=== PATIENT | female | born 1945 | race Caucasian/White ===

== ENCOUNTER → 2017-10-03 09:56 | Outpatient (CLI) | payer MEDICARE, SELFPAY ==
--- NOTE | 2017-10-03 10:01 | RDU_ITS ---
Reason For Study: HTN Right Renal Artery Left Renal Artery Right renal artery ostium 284/79.0 Left renal artery ostium 169/35.4 RSV/EDV. PSV/EDV. Right renal artery proximal Left renal artery proximal PSV/EDV 306/42.8 PSV/EDV. 163/20.8 . Right renal artery mid 156/34.2 Left renal artery mid 240/48.9 PSV/EDV. PSV/EDV . Right renal artery distal 165/34.2 Left renal artery distal 95.8/31.0 PSV/EDV. PSV/EDV. Right RAR 3.6. Left RAR 2.8. Right Renal Parenchyma Left renal artery appears tortuous. Upper Pole Medula 37.3/12.8 Left Renal Parenchyma PSV/EDV. Left upper pole medulla 32.8/8.66 Right upper pole medulla EDR .34 . PSV/EDV . Right upper pole medulla R.I. .66 . Left upper pole medulla EDR .26 . Upper Vivek Cortx 27.5/7.94 PSV/EDV. Left upper pole medulla R.I. .74 . Right upper pole cortex EDR .29 . UP Cortex 25.5/8.66 PSV/EDV. Right upper pole cortex R.I. .71 . Left upper pole cortex EDR .34 . Right lower Pole medulla 33.0/11.0 Left upper pole cortex R.I. .66 . PSV/EDV . Left lower Pole medulla 24.6/8.21 Right lower pole medulla EDR .33 . PSV/EDV . Right lower pole medulla R.I. .67 . Left lower pole medulla EDR .33 . Lower Pole Cortex 29.3/10.4 Left lower pole medulla R.I. .67 . PSV/EDV. Lower Pole Cortx 26.0/8.66 PSV/EDV. Right lower pole cortex EDR .35 . Left lower pole cortex EDR .33 . Right lower pole cortex R.I. .65 . Left lower pole cortex R.I. .67 . Right Renal Hilar Left Renal Hilar Right hilar acceleration time 88 Left hilar acceleration time 59 m/sec. m/sec. Right Hilar avg 84.3/19.6 PSV/EDV. LT Hilar avg 52.4/15.0 PSV/EDV . Right Renal Dimensions Left Renal Dimensions Right kidney size 10.4 cm . Left kidney size 12.2 cm . Right cortical dimension 1.7 cm . Left cortical dimension 1.29 cm . Hypoechoic area on the lower pole measuring 4.76 x 5.37 cm. Area is nonvascular. Aorta Proximal abdominal aorta 1.45 x 1.5 cm . Proximal abdominal aorta peak systolic velocity is 85.7 cm/sec . Distal abdominal aorta 1.04 x 1.04 cm . Distal abdominal aorta peak systolic velocity is 71.1 cm/sec . Normal renal veins bilat. Interpretation Summary Dimensions of the intra-abdominal aorta appear normal, without evidence of aneurysmal dilatation. Elevated velocities are noted in the right ostial and proximal renal artery, and the left mid-renal artery. Acceleration times are normal bilaterally. The right renal-aortic ratio is elevated. The left renal-aortic ratio is normal. There appears to be evidence of hemodynamically-significant stenosis in the right renal artery. There appears to be mild stenosis in the left renal artery, which is not suspected to be hemodynamically significant. Renovascular resistance appears to be normal. The right cortical dimension is elevated. The left cortical dimension is normal. Kidneys are normal in size, but the left kidney is more than one centimeter larger than the right kidney. A large, non-vascular, hypoechoic structure is noted in the lower pole of the left kidney, measuring 4.76 cm x 5.37 cm. This may represent a renal cyst. Clinical correlation is advised. Ordering Physician: Carol Singer Performed By: Enrique Abernathy RVDino
== END ==
PROVIDERS: Family Provider Internal Medicine; PCP Internal Medicine; Visit Provider Internal Medicine
DX: I10 Essential (primary) hypertension (principal)
CPT/HCPCS: 93975

== ENCOUNTER → 2018-01-01 13:08 | Outpatient (CLI) | payer MEDICARE, SELFPAY ==
--- NOTE | 2018-01-01 13:12 | CT_ITS ---
STUDY: CT ANGIOGRAM ABDOMEN AND PELVIS WITH CONTRAST REASON FOR EXAM: Female, 72 years old. Follow up renal artery stenosis RADIATION DOSAGE (If Supplied By Facility): CTDIvol = ( 24.87 ) mGy, DLP = ( 964.70 ) mGycm. Individualized dose optimization techniques were used for this CT.? TECHNIQUE: Multiple axial images of the abdomen and pelvis were obtained from the base of the lungs to the proximal femurs after the administration of 100 mL of Isovue-370. Sagittal coronal reconstructed images are performed as well as 3-D reconstructed imaging. COMPARISON: March 19, 2013 CT angiogram abdomen FINDINGS: The aorta at the takeoff of the celiac measures 2.0 x 2.0 cm. There is dense calcification uptake about the celiac axis. There is severe narrowing of the takeoff with a small caliber but enhancing appearance of the associated vessels. Allowing for the timing of the procedure the stenosis appears worse. There is calcification the takeoff of the superior mesenteric artery and throughout the splenic mesenteric artery without occlusion. There is dense calcification of the takeoff of the right renal artery with a enhancing appearance of the right renal artery. There is dense calcification of the left renal artery at the takeoff and in the proximal left renal artery over a segment of 1.2 cm. This is similar to the prior study. There is partial calcification of the distal aorta. There is mild to moderate calcification of the takeoff of the right common iliac. There is partial calcification of the takeoff of the right external iliac artery. There is associated calcification of the proximal common femoral artery. There is mild to moderate diffuse narrowing of the right internal iliac artery. There is calcification of the left iliac artery without stenosis. There is mild to moderate narrowing of the left internal iliac artery. The left external iliac artery appears relatively patent. There is nonobstructed calcification of the left side common femoral artery. There is a hiatal hernia larger than prior study measuring 5.1 x 6.5 cm when on prior study it measured 2.3 x 2.4 cm. The small bowel appears grossly normal. There is moderate stool in the colon. There are few visualized diverticula present without evidence of diverticulitis. The visualized arterial phase liver appears fairly homogeneous. The gallbladder appears normal. The spleen is mildly lobulated similar to prior study but relatively smaller in size now measuring 6.3 cm when it measured 8.2 cm on prior study. The pancreas appears grossly normal. The adrenal glands are unremarkable. There is mild right-sided extrarenal pelvis in the right kidney. The right kidney enhances appropriately. There is a suggestion of mild left renal cortical thinning. There is a left renal cyst measuring 5.0 x 4.7 cm slightly enlarged when compared to prior study when it measured 4.2 x 3.6 cm. There is minimal left pelviectasis. The graft there is no significant periaortic lymphadenopathy. There are few nonspecific fatty filled lymph nodes. Bladder is partially distended. A pessary is in place. The uterus is not visualized. There is slight anterolisthesis of L4-L5 there is a worse broad disc protrusion with moderate to severe neural foramina narrowing and moderate to severe central stenosis. There is a broad disc bulge at L4-L5 with facet arthropathy. There is degenerative change of the SI joints. CT/CT ANGIO ABD&PEL W/O&W/DYE IMPRESSION: Relatively similar-appearing moderate atherosclerosis of the bilateral renal arteries. 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 Recommend vascular consult. 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 Status post hysterectomy. Moderate constipation. Advanced degenerative change thoracolumbar spine including a broad disc protrusion L4-L5 with severe neural foramina narrowing of central stenosis. Enlarging hiatal hernia. Enlarging left renal cyst with otherwise benign features. Electronically Signed: Melodie Jacinto MD at 21:14 EDT Tel , Service support ,
[2018-01-01 20:26] LABS: CREATININE FINGERSTICK 0.7 mg/dL (0.55-1.02); EGFR FINGERSTICK > 60.0000 mL/min (>60)
== END ==
PROVIDERS: Family Provider Internal Medicine; PCP Internal Medicine; Visit Provider Internal Medicine Nephrology
DX: I70.1 Atherosclerosis of renal artery (principal)
CPT/HCPCS: 74174; Q9967

== ENCOUNTER → 2018-01-09 10:11 | Outpatient (CLI) | payer MEDICARE, SELFPAY ==
[2018-01-09 10:50] LABS: Absolute Lymphocyte Count 1.66 X10^3/ul (0.83-4.51); Absolute Neutrophil Count 2.1 X10^3/uL (2.0-7.7); Basophil# 0.02 X10^3/uL; Basophil% 0.5 % (0-1); Eosinophils% 2.3 % (0-5); Hematocrit 33.1 % (37-47); Lymphocyte # 1.66 X10^3/ul (4.0); Lymphocyte % 37.4 % (19-41); Mean Corp Hgb Conc 33.2 g/gl (32-36); Mean Corpuscular Hgb 29.8 pg (27.0-32.0); Mean Corpuscular Volume 89.7 fL (81-99); Mean Platelet Vol. 9.9 fl (6.2-12.0); Monocyte# 0.52 X10^3/uL; Monocyte% 11.7 % (0-10); Neutrophil # 2.13 X10^3/uL (2.7-7.7); Neutrophil % 47.9 % (47-70); POSITIVE COUNT NO; POSITIVE DIFFERENTIAL NO; POSITIVE MORPHOLOGY NO; Platelet Count 304 K/mm3 (150-450); RBC Distribution Width CV 12.7 % (11.6-14.6); Red Blood Count 3.69 M/mm3 (4.2-5.4); White Blood Count 4.4 K/mm3 (4.4-11.0)
[2018-01-09 10:58] LABS: Protein, Urine (Random) 20.4 mg/dL (<11.9); Protein:Creat Ratio 174 mg/g CRE (0-200)
[2018-01-09 11:02] LABS: Albumin, Serum 3.4 g/dL (3.2-5.0); BUN 20 mg/dL (7-18); BUN/Creat Ratio 22.5 RATIO (10-20); Calcium,Total 8.8 mg/dL (8.5-10.1); Chloride 98 mmol/L (98-107); Creatinine, Serum 0.89 mg/dL (0.55-1.02); EST Glomerular Filtration Rate 66 mL/min (>60); Est Glom Filt Rate - Afr Amer 80 mL/min (>60); Glucose 74 mg/dL (74-106); Phosphorus 3.6 mg/dL (2.5-4.9); Potassium 4.2 mmol/L (3.5-5.1); Sodium Level 132 mmol/L (136-145)
[2018-01-10 08:18] LABS: PTHIN 34.5 pg/mL (18.4-80.1)
[2018-01-10 08:19] LABS: Vitamin D,25 Hydroxy 51.3 ng/mL (29.95-100.01)
== END ==
PROVIDERS: Family Provider Internal Medicine; PCP Internal Medicine; Visit Provider Internal Medicine Nephrology
DX: N18.2 Chronic kidney disease, stage 2 (mild) (principal); E55.9 Vitamin D deficiency, unspecified
CPT/HCPCS: 36415; 80069; 82306; 82570; 83970; 84156; 85025

== ENCOUNTER → 2018-04-10 09:37 | Outpatient (CLI) | payer MEDICARE, SELFPAY ==
[2018-04-10 11:08] LABS: Microalbumin,Random Urine 10.5 mg/L (NO RANGE EST.); Microalbumin:Creatinine Ratio 16.2 mg/g CRE (<30 mg/g CRE)
[2018-04-10 11:22] LABS: Anion Gap 8 (5-15); BUN 18 mg/dL (7-18); BUN/Creat Ratio 21.4 RATIO (10-20); Calcium,Total 8.8 mg/dL (8.5-10.1); Chloride 99 mmol/L (98-107); Creatinine, Serum 0.84 mg/dL (0.55-1.02); EST Glomerular Filtration Rate 70 mL/min (>60); Est Glom Filt Rate - Afr Amer 85 mL/min (>60); Glucose 76 mg/dL (74-106); Potassium 4.2 mmol/L (3.5-5.1); Sodium Level 132 mmol/L (136-145)
== END ==
PROVIDERS: Family Provider Internal Medicine; PCP Internal Medicine; Referring Provider Internal Medicine Nephrology; Visit Provider Internal Medicine Nephrology
DX: N18.2 Chronic kidney disease, stage 2 (mild) (principal)
CPT/HCPCS: 36415; 80048; 82043; 82570

== ENCOUNTER → 2018-06-08 14:59 | Outpatient (CLI) | payer MEDICARE, SELFPAY ==
--- NOTE | 2018-06-08 15:00 | BI_ITS ---
MAMMOGRAPHY - BILATERAL SCREENING REASON FOR EXAM: Female, 73 years old. Routine annual screening examination. PERTINENT HISTORY: Non-contributory. TECHNIQUE: Digital bilateral breast don (3D mammographic acquisition) in the CC and MLO projections. 2-D mediolateral oblique (MLO) and craniocaudad (CC) views of both breasts were obtained. CAD: Full Field Digital Mammography with Computer Added Detection was performed. COMPARISON: Comparison is made with prior study dated March 28, 2017 and April 26, 2016. FINDINGS: Breast Composition: The breasts are almost entirely fatty. There are no dominant masses or suspicious calcifications. Stable benign-appearing bilateral axillary lymph nodes. A stereo tactic tissue clip marker is seen in the upper lateral portion of the right breast adjacent to a small nodular density. No other significant abnormalities are identified. There has been no significant change since the prior study. BI/SCREENING MAMM (CAD), BILAT IMPRESSION: Stable bilateral screening mammogram. Yearly follow-up mammogram recommended. (A) ASSESSMENT CATEGORY: BIRADS Category 2: Benign. A letter regarding these results will be sent to the patient by the facility within 30 days. Approximately 10% of breast cancers are not detected by mammography. A normal mammogram should not delay biopsy of a clinically suspicious abnormality. [id number] Electronically Signed: Remy Gavin MD at 15:56 EST Tel [phone], Service support ,
== END ==
PROVIDERS: Family Provider Internal Medicine; PCP Internal Medicine; Referring Provider Nurse Practitioner Women's Health; Visit Provider Nurse Practitioner Women's Health
DX: Z12.31 Encounter for screening mammogram for malignant neoplasm of breast (principal)
CPT/HCPCS: 77063; 77067

== ENCOUNTER → 2018-11-23 11:10 | Outpatient (CLI) | payer MEDICARE, SELFPAY ==
[2018-10-23 14:21] VITALS: BMI 36.6
[2018-11-23 12:13] LABS: ALB/GLOB Ratio 0.9 RATIO (0.9-2.4); AST(SGOT) 19 U/L (15-37); Alanine Aminotransfer ALT/SGPT 20 U/L (13-56); Albumin, Serum 3.5 g/dL (3.2-5.0); Alkaline Phosphatase 90 U/L (45-117); Anion Gap 6 (5-15); BUN 14 mg/dL (7-18); BUN/Creat Ratio 15.9 RATIO (10-20); Calcium,Total 8.8 mg/dL (8.5-10.1); Chloride 97 mmol/L (98-107); Creatinine, Serum 0.88 mg/dL (0.55-1.02); EST Glomerular Filtration Rate 67 mL/min (>60); Est Glom Filt Rate - Afr Amer 80 mL/min (>60); Globulin 3.9 g/dL (2.2-4.2); Glucose 85 mg/dL (74-106); Potassium 4.9 mmol/L (3.5-5.1); Protein, Total 7.4 g/dL (6.4-8.2); Sodium Level 128 mmol/L (136-145)
[2018-11-23 13:11] LABS: Microalbumin,Random Urine 13.4 mg/L (NO RANGE EST.); Microalbumin:Creatinine Ratio 21.2 mg/g CRE (<30 mg/g CRE)
== END ==
PROVIDERS: Family Provider Internal Medicine; PCP Internal Medicine; Referring Provider Internal Medicine Nephrology; Visit Provider Internal Medicine Nephrology
DX: I10 Essential (primary) hypertension (principal)
CPT/HCPCS: 36415; 80053; 82043; 82570

== ENCOUNTER → 2019-02-13 11:12 | Outpatient (CLI) | payer MEDICARE, SELFPAY ==
[2019-01-15 14:12] VITALS: BMI 35.9
[2019-02-13 12:05] LABS: BUN 16 mg/dL (7-18); Glucose 100 mg/dL (74-106)
[2019-02-13 12:06] LABS: Anion Gap 6 (5-15); BUN/Creat Ratio 17.8 RATIO (10-20); Calcium,Total 9.1 mg/dL (8.5-10.1); Chloride 98 mmol/L (98-107); EST Glomerular Filtration Rate 65 mL/min (>60); Est Glom Filt Rate - Afr Amer 79 mL/min (>60); Potassium 4.4 mmol/L (3.5-5.1); Sodium Level 131 mmol/L (136-145)
== END ==
PROVIDERS: Family Provider Internal Medicine; PCP Internal Medicine; Referring Provider Internal Medicine Nephrology; Visit Provider Internal Medicine Nephrology
DX: E87.1 Hypo-osmolality and hyponatremia (principal)
CPT/HCPCS: 36415; 80048

== ENCOUNTER 2019-02-27 11:01 | Emergency (ER) | payer MEDICARE, SELFPAY ==
[2019-01-15 14:12] VITALS: BMI 35.9
[2019-02-27 11:02] VITALS: BP 159/93; PULSE 79; RESP 18; TEMP 36.1; O2SAT 98; BMI 35.5
--- NOTE | 2019-02-27 11:16 | EKG12_ITS ---
Test Reason : DIZZINESS Blood Pressure : / mmHG Vent. Rate : 068 BPM Atrial Rate : 068 BPM P-R Int : 172 ms QRS Dur : 084 ms QT Int : 418 ms P-R-T Axes : 021 -28 060 degrees QTc Int : 444 ms Normal sinus rhythm Normal ECG Confirmed by AUDRA SNYDER ([id number]), editor index JESSY HUSAIN ([id number]) on 03/05/2019 9:43:58 AM Referred By: DAXA Confirmed By:AUDRA SNYDER
--- NOTE | 2019-02-27 11:16 | RAD_ITS ---
STUDY: X-RAY CHEST REASON FOR EXAM: Female, 73 years old. Cough. Dizziness. TECHNIQUE: AP and lateral views of the chest. COMPARISON: Comparison is made with prior study dated June 21, 2017. FINDINGS: EKG electrodes are seen. The lungs are clear and expanded. There is no demonstrated pleural abnormality. Normal size heart. Stable calcified subcarinal lymph nodes. Normal visualized pulmonary arteries. There is atherosclerotic calcification of the aortic arch with tortuosity. There is demineralization of the osseous structures. Normal visualized ribs, clavicles, and shoulders. Hiatal hernia. RAD/Chest PA and Lateral IMPRESSION: Stable examination. No acute abnormality is seen. Electronically Signed: Remy Gavin, at 12:56 EDT , Service support ,
--- NOTE | 2019-02-27 11:16 | CT_ITS ---
STUDY: CT BRAIN WITHOUT CONTRAST REASON FOR EXAM: Female, 73 years old. Headaches and dizziness. History of hypertension. RADIATION DOSAGE (If Supplied By Facility): CTDIvol = ( 44.99 ) mGy, DLP = ( 745.49 ) mGycm TECHNIQUE: Transaxial CT imaging of the brain was performed without administration of intravenous contrast material. Individualized dose optimization techniques were used for this CT. COMPARISON: Comparison is made with prior study dated June 21, 2017. FINDINGS: Normal soft tissue structures. There is hyperostosis frontalis internus. There is mild cerebral atrophy with widening of the extra-axial spaces and ventricular dilatation. There are areas of decreased attenuation within the white matter tracts of the supratentorial brain, consistent with microvascular disease changes. Stable appearance of the small lacunar infarcts involving the insular cortex of both temporal lobes. Normal brainstem. Normal cerebellum. There is no intracranial hemorrhage. There are no findings of an acute ischemic infarction. Atherosclerotic calcification of the vertebral arteries and cavernous portions of the internal carotid arteries bilaterally. Normal visualized paranasal sinuses. CT/Brain/Head without Contrast IMPRESSION: Chronic involutional changes of the brain. Electronically Signed: Remy Gavin, at 12:37 EDT , Service support ,
--- NOTE | 2019-02-27 11:58 | ED.VIS.GEN ---
History of Present Illness Chief Complaint: Dizziness Narrative: 73-year-old female presents with elevated blood pressure, dizziness, and headache. She states that her blood pressure has been exceptionally elevated for the past week. She saw her it project coordinator and was started on clonidine 3 times a day. Since then her blood pressure has been more labile, being between 120 and 200 systolic. She has felt intermittently lightheaded but not ataxic. No visual changes or neck pain. No confusion. She is also concerned that she may be dehydrated because she has not been drinking very much fluid for the past few days. Current severity is mild. Past Medical History - Allergies and Home Meds Allergies/Adverse Reactions: Allergies Lzjdczf-Bdn-Cmy Reductase Inhibitor Adverse Reaction (Verified 02/27/19 11:03) leg muscle weakness Primary Care Physician: Carol Singer DO [Primary Care Provider] - Surgical History: no surgical history Smoking Status: Never smoker - Family History Maternal Family History: Family History (Last Reviewed 01/15/19 @ 14:12 by Leyla Gannon) Mother Heart disease Family History: Reports: Heart Disease Sibling Family History: Family History (Last Reviewed 01/15/19 @ 14:12 by Leyla Gannon) Mother Heart disease Family History: Reports: Heart Disease Review of Systems General: Denies: Chills, Fever, Sweats Eyes: Denies: Visual changes - bilaterally, Diplopia ENT: Denies: Rhinorrhea, Sore throat Cardiovascular: Reports: - - lightheaded. Denies: Chest pain, Palpitations Respiratory: Denies: Dyspnea, Cough, Dyspnea on exertion Gastrointestinal: Denies: Abdominal pain, Nausea, Vomiting, Diarrhea, Melena, Hematochezia Genitourinary: Denies: Dysuria, Hematuria, Frequency Musculoskeletal: Denies: Back pain, Extremity Pain Skin: Denies: Rash, Wounds Neurological: Denies: Headache, Weakness, Numbness Physical Exam Vital Signs/Narrative: Vital Signs Temp Pulse Resp BP Pulse Ox 02/27/19 11:02 97 F L 79 18 159/93 H 98 General: Well nourished, Well developed, No Acute Distress Head: Normocephalic, Atraumatic Eyes: Perrl, EOMI ENT: Moist mucous membranes, No rhinorrhea Neck: Supple, Nontender Cardiovascular: Regular rate, Regular rhythm, No murmurs Respiratory: No distress, CTA bilaterally, Chest nontender Abdomen: Soft, Nontender, Nondistended, Normal bowel sounds Back: Nontender, Normal Inspection Extremities: Nontender, No edema Skin: Normal color, No rash Neurological: Alert, Oriented x3, Cranial nerves II-XII grossly intact, Normal Strength, Normal Sensation Psychological: Normal affect, Normal Mood Diagnostic/Tx/Re-eval - Medical Decision Making EKG reveals sinus rhythm at a rate of 68. No acute ischemic changes. No QRS widening. No ST elevation. Unchanged from comparison EKG from June. Troponin is negative. CT brain is negative. Creatinine is normal. No evidence of endorgan damage from her labile blood pressure. She is still somewhat elevated here but I am hesitant to give her any additional medications since she states that she fluctuates so widely based on the time of day. She has no headache currently and looks quite well. She is not in any distress. Her urine does appear infected. I sent it for culture. I gave her a dose of Bactrim here. We discussed admitting her to the hospital versus close follow-up. She feels strongly about going home with close follow-up instead of staying in the hospital. Given her well appearance, I feel this is safe. She will follow-up closely with her doctor and return here if worse. ED Disposition - Plan for ED Patient: Disposition: Home or Assisted Living Diagnosis: UTI (urinary tract infection), Labile blood pressure Instructions: DIZZINESS, Unk Cause, High Blood Pressure (Hypertension), Understanding Urinary Tract Infections (UTIs) Prescriptions: Smz/Tmp Ds [Bactrim Ds] 1 tablet PO BID #14 tablet Referrals: Carol Singer DO [Primary Care Provider] - As soon as possible
[2019-02-27 12:27] LABS: Absolute Lymphocyte Count 1.39 X10^3/uL (0.83-4.51); Absolute Neutrophil Count 2.4 X10^3/uL (2.0-7.7); Basophil# 0.03 X10^3/uL; Basophil% 0.7 % (0-1); Eosinophil# 0.06 X10^3/uL; Eosinophils% 1.4 % (0-5); Hematocrit 35.3 % (37-47); Hemoglobin 11.8 g/dL (12.0-15.0); Lymphocyte # 1.39 X10^3/ul (4.0); Lymphocyte % 31.8 % (19-41); Mean Corp Hgb Conc 33.4 g/dL (32-36); Mean Corpuscular Hgb 30.3 pg (27.0-32.0); Mean Corpuscular Volume 90.7 fL (81-99); Mean Platelet Vol. 10.3 fl (6.2-12.0); Monocyte# 0.48 X10^3/uL; NRBC Flagged by Analyzer 0 % (0-5); Neutrophil % 54.9 % (47-70); Platelet Count 301 K/mm3 (150-450); RBC Distribution Width CV 12.4 % (11.6-14.6); RBC Distribution Width SD 40.9 fl (35.1-43.9); Red Blood Count 3.89 M/mm3 (4.2-5.4); White Blood Count 4.4 K/mm3 (4.4-11.0)
[2019-02-27 12:48] LABS: ALB/GLOB Ratio 0.8 RATIO (0.9-2.4); AST(SGOT) 13 U/L (15-37); Alanine Aminotransfer ALT/SGPT 21 U/L (13-56); Albumin, Serum 3.4 g/dL (3.2-5.0); Alkaline Phosphatase 90 U/L (45-117); Anion Gap 9 (5-15); BUN 16 mg/dL (7-18); BUN/Creat Ratio 17.5 RATIO (10-20); Calcium,Total 8.7 mg/dL (8.5-10.1); Chloride 99 mmol/L (98-107); Creatinine, Serum 0.92 mg/dL (0.55-1.02); EST Glomerular Filtration Rate 64 mL/min (>60); Est Glom Filt Rate - Afr Amer 77 mL/min (>60); Estimated Creatinine Clearance 67.61 ml/min; Globulin 4.3 g/dL (2.2-4.2); Glucose 81 mg/dL (74-106); Protein, Total 7.7 g/dL (6.4-8.2); Sodium Level 134 mmol/L (136-145)
[2019-02-27 13:11] LABS: Mucous, Urine 0 SEEN /hpf (<or=2+)
[2019-02-27 13:15] LABS: Color, Urine Yellow (Yellow); Glucose, Dipstick Normal (Normal); Ketone-Dipstick Negative (Negative); Leukocyte Esterase-Dipstick 500 /ul (Negative); Nitrite-Dipstick Positive (Negative); Occult Blood-Urine 25 /ul (Negative); Protein-Dipstick Negative (Negative); Urine Bilirubin Dipstick Negative (Negative); Urine Clarity Sl. Cloudy (Clear); Urine Urobilinogen Normal (Normal); Urine pH 6.5 (5.0 - 8.0)
[2019-02-27 13:17] VITALS: BP 190/75; PULSE 60; RESP 19; O2SAT 97
[2019-02-27 13:24] LABS: Bacteria 2+ /hpf (None Seen); Red Blood Cells-Urine 0-5 SEEN /hpf (0-5); Squamous Epithelial Cells - UA 0-5 SEEN /hpf (5-10); White Blood Cells 25-50 SEEN /hpf (0-5)
[2019-02-27] MEDS: Smz/Tmp Ds Tablet 1 TABLET PO (13:52)
[2019-02-27 14:12] VITALS: BP 192/72; PULSE 58; RESP 15; O2SAT 96
--- NOTE | 2019-02-27 14:14 | ED.RN ---
REVIEWED D/C INSTRUCTIONS, FOLLOW UP CARE, PRESCRIPTION, AND S/S THAT WOULD WARRANT A RETURN TO THE ED WITH PT. PT VERBALIZED AN UNDERSTANDING AND DENIES FURTHER QUESTIONS FOR THIS RN. PT SKIN P/W/D, RESP EVEN AND UNLABORED, PT A&O X 3, NO DISTRESS NOTED. PT AMBULATED OUT OF ED, GAIT STEADY.
== END 2019-02-27 14:14 | disposition home or self-care (01) ==
PROVIDERS: Emergency Provider Emergency Medicine; Family Provider Internal Medicine; PCP Internal Medicine
DX: N39.0 Urinary tract infection, site not specified (principal); I10 Essential (primary) hypertension; Z79.82 Long term (current) use of aspirin; Z79.899 Other long term (current) drug therapy
CPT/HCPCS: 70450; 71046; 80053; 81001; 84484; 85025; 93005; 96360; 99285; J7030

== ENCOUNTER → 2019-04-16 14:02 | Outpatient (CLI) | payer MEDICARE, SELFPAY ==
[2019-04-16 15:09] LABS: Osmolality, Urine 310 mOsm/KG
[2019-04-16 15:10] LABS: Protein, Urine (Random) 14.4 mg/dL (<11.9); Protein:Creat Ratio 260 mg/g CRE (0-200); Urine Sodium 50 mmol/L (Not Establ.)
[2019-04-16 15:15] LABS: Osmolality, Serum 274 mOsm/KG (280-301)
[2019-04-16 15:22] LABS: Albumin, Serum 3.6 g/dL (3.2-5.0); BUN 17 mg/dL (7-18); Chloride 96 mmol/L (98-107); EST Glomerular Filtration Rate 57 mL/min (>60); Est Glom Filt Rate - Afr Amer 70 mL/min (>60); Glucose 92 mg/dL (74-106); Phosphorus 4.6 mg/dL (2.5-4.9); Potassium 4.9 mmol/L (3.5-5.1); Sodium Level 128 mmol/L (136-145)
[2019-04-16 15:32] LABS: PTHIN 102.1 pg/mL (18.4-80.1); Vitamin D,25 Hydroxy 44.5 ng/mL (29.95-100.01)
== END ==
PROVIDERS: Family Provider Internal Medicine; PCP Internal Medicine; Referring Provider Internal Medicine Nephrology; Visit Provider Internal Medicine Nephrology
DX: E55.9 Vitamin D deficiency, unspecified (principal); N18.2 Chronic kidney disease, stage 2 (mild); E87.1 Hypo-osmolality and hyponatremia
CPT/HCPCS: 36415; 80069; 82306; 82570; 83930; 83935; 83970; 84156; 84300

== ENCOUNTER → 2019-06-25 10:22 | Outpatient (CLI) | payer MEDICARE, SELFPAY ==
[2019-04-16 14:39] VITALS: BMI 35.5
--- NOTE | 2019-06-25 10:24 | BI_ITS ---
MAMMOGRAPHY - BILATERAL SCREENING 3-D TOMOSYNTHESIS REASON FOR EXAM: Female, 74 years old. FAM HX NIECE AT AGE 40''S LT STEREO BX DONE BY DR FREEMAN ([address] [place] [address]) PERTINENT HISTORY: Positive family history as described above. TECHNIQUE: 2-D mammograms and 3-D Tomosynthesis of the breast (s) were performed. CAD was performed. COMPARISON: 06/08/2018, 03/28/2017, 04/26/2016 FINDINGS: The breast composition is almost entirely fat. Stable bilateral scattered intramammary lymph nodes. Scattered benign calcifications are seen. No dense spiculated masses or suspicious microcalcifications are identified. No architectural distortion is identified. There is no skin thickening or retraction. There has been no significant change since the prior study. BI/SCREEN MAMM (CAD) W/MANDI BILAT IMPRESSION: No mammographic signs of malignancy. Routine yearly mammograms recommended. ASSESSMENT CATEGORY: BIRADS Category 2: Benign. A letter regarding these results will be sent to the patient by the facility within 30 days. FOLLOW UP RECOMMENDATION: Yearly follow up mammogram recommended. (A) Approximately 10% of breast cancers are not detected by mammography. A normal mammogram should not delay biopsy of a clinically suspicious abnormality. Electronically Signed: José Luis Aranda MD at 15:29 EST Tel [phone], Service support ,
--- NOTE | 2019-06-25 10:32 | BD_ITS ---
STUDY: DUAL ENERGY X-RAY ABSORPTIOMETRY / DXA REASON FOR EXAM: Female, 74 years old. 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 COMPARISON: Comparison is made with prior study dated March 28, 2017. FINDINGS: Lumbar Spine (L1-L4): g/cm2 (1.183) / T-score (-0.1) / Z-score (1.6) Findings are suggestive of normal bone density with a low fracture risk. Left Femur Total: g/cm2 (0.846) / T-score (-1.3) / Z-score (0.5) Left Femoral Neck: g/cm2 (0.804) / T-score (-1.7) / Z-score (0.2) Right Femur Total: g/cm2 (0.867) / T-score (-1.1) / Z-score (0.6) Right Femoral Neck: g/cm2 (0.798) / T-score (-1.7) / Z-score (0.2) The T-Scores on the most recent prior examination were: Lumbar Spine (L1-L4): There has been worsening of bone density since the previous examination. Left Femur Total: which represents a worsening of 3.9%. Right Femur Total: which represents a worsening of 0.7%. BD/Dexa Bone Density Study IMPRESSION: The patient is considered osteopenic as outlined below according to World Jeffry Organization (WHO) criteria with a moderate fracture risk. There has been worsening of bone density since the previous examination. Reference Information: The T-score is the number of standard deviations above or below the standard which is normal for young adults at their peak bone mineral density. The World Health Organization (WHO) interprets the T-scores as follows: Above -1 Normal bone density Between -1 and -2.5 Osteopenia Equal to / or below -2.5 Osteoporosis As a practical clinical guideline, osteopenia may be graded as follows: Mild -1 through -1.5 Moderate -1.6 through -2.0 Severe -2.1 through -2.4 The Z-score is the number of standard deviations above or below age-matched controls. A Z-score of less than -1.5 would be considered abnormal. References: 1. NIH Osteoporosis and Related Bone Diseases http://www.osteo.org 2. International Society for Clinical Densitometry http://www.iscd.org 3. National Osteoporosis Foundation http://www.nof.org Electronically Signed: Remy Gavin, at 15:40 EST , Service support ,
== END ==
PROVIDERS: Family Provider Internal Medicine; PCP Internal Medicine; Referring Provider Internal Medicine; Visit Provider Internal Medicine
DX: Z12.31 Encounter for screening mammogram for malignant neoplasm of breast (principal); Z78.0 Asymptomatic menopausal state
CPT/HCPCS: 77063; 77067; 77080

== ENCOUNTER → 2019-07-24 17:09 | Outpatient (CLI) | payer MEDICARE, SELFPAY ==
[2019-07-16 14:37] VITALS: BMI 35.5
[2019-07-24 17:58] LABS: Absolute Lymphocyte Count 2.06 X10^3/uL (0.83-4.51); Absolute Neutrophil Count 3.4 X10^3/uL (2.0-7.7); Basophil# 0.04 X10^3/uL; Basophil% 0.7 % (0-1); Eosinophil# 0.07 X10^3/uL; Eosinophils% 1.1 % (0-5); Hemoglobin 11.8 g/dL (12.0-15.0); Lymphocyte # 2.06 X10^3/ul (4.0); Lymphocyte % 33.8 % (19-41); Mean Corp Hgb Conc 31.9 g/dL (32-36); Mean Corpuscular Hgb 28.9 pg (27.0-32.0); Mean Corpuscular Volume 90.7 fL (81-99); Mean Platelet Vol. 10.3 fl (6.2-12.0); Monocyte# 0.54 X10^3/uL; Monocyte% 8.9 % (0-10); NRBC Flagged by Analyzer 0 % (0-5); Neutrophil # 3.37 X10^3/uL (2.7-7.7); Neutrophil % 55.2 % (47-70); Platelet Count 314 K/mm3 (150-450); RBC Distribution Width CV 12.5 % (11.6-14.6); RBC Distribution Width SD 41.2 fl (35.1-43.9); Red Blood Count 4.08 M/mm3 (4.2-5.4); White Blood Count 6.1 K/mm3 (4.4-11.0)
[2019-07-24 18:19] LABS: Vitamin D,25 Hydroxy 37.1 ng/mL (29.95-100.01)
[2019-07-24 18:32] LABS: ALB/GLOB Ratio 0.9 RATIO (0.9-2.4); AST(SGOT) 18 U/L (15-37); Alanine Aminotransfer ALT/SGPT 23 U/L (13-56); Albumin, Serum 3.6 g/dL (3.2-5.0); Alkaline Phosphatase 95 U/L (45-117); Anion Gap 6 (5-15); BUN 18 mg/dL (7-18); BUN/Creat Ratio 19.8 RATIO (10-20); Calcium,Total 9.1 mg/dL (8.5-10.1); Chloride 101 mmol/L (98-107); Creatinine, Serum 0.91 mg/dL (0.55-1.02); EST Glomerular Filtration Rate 64 mL/min (>60); Est Glom Filt Rate - Afr Amer 78 mL/min (>60); Globulin 4.1 g/dL (2.2-4.2); Glucose 93 mg/dL (74-106); Potassium 4.5 mmol/L (3.5-5.1); Protein, Total 7.7 g/dL (6.4-8.2); Sodium Level 133 mmol/L (136-145); Thyroid Stim Hormone (TSH) 1.58 uIU/mL (0.358-3.74)
== END ==
PROVIDERS: Referring Provider Family Medicine Geriatric Medicine; Visit Provider Family Medicine Geriatric Medicine
DX: E55.9 Vitamin D deficiency, unspecified (principal); I10 Essential (primary) hypertension; N39.0 Urinary tract infection, site not specified
CPT/HCPCS: 36415; 80053; 82306; 84443; 85025; 87086; 87088; 87186

== ENCOUNTER 2019-09-05 19:49 | Emergency (ER) | payer MEDICARE, SELFPAY ==
[2019-07-16 14:37] VITALS: BMI 35.5
[2019-09-05 19:50] VITALS: BP 218/105; PULSE 66; RESP 16; TEMP 36.1; O2SAT 98; BMI 34.9
--- NOTE | 2019-09-05 20:31 | CT_ITS ---
STUDY: CT BRAIN WITHOUT CONTRAST REASON FOR EXAM: Female, 74 years old. SCOTT/BLURRED VISION/HIGH BP-UNCONTROLLED LATELY RADIATION DOSAGE (If Supplied By Facility): CTDIvol = ( 44.99 ) mGy, DLP = ( 748.30 ) mGycm TECHNIQUE: Transaxial CT imaging of the brain was performed without administration of intravenous contrast material. Individualized dose optimization techniques were used for this CT. COMPARISON: 27 February 2019 FINDINGS: Normal soft tissue structures. Normal calvarium. There is moderate cerebral atrophy with widening of the extra-axial spaces and ventricular dilatation. There are areas of decreased attenuation within the white matter tracts of the supratentorial brain, consistent with microvascular disease changes. Normal basal ganglia and thalami. Normal brainstem. Normal cerebellum. There is no intracranial hemorrhage. There are no findings of an acute ischemic infarction. Normal visualized paranasal sinuses. CT/Brain/Head without Contrast IMPRESSION: No evidence of acute intracranial bleed, mass or ischemia. Electronically Signed: Mejia Raymundo DO at 21:17 EST , Service support ,
--- NOTE | 2019-09-05 20:32 | ED.DCSUM_ITS ---
History of Present Illness Chief Complaint: Hypertension Informant: Patient Context: Gradual Onset Timing: Intermittent, Lasts - hrs Quality: aching Location: all over head but mostly on top Current Severity: Moderate Maximum Severity: Moderate Worsened by: elevated BP Relieved by: BP going down Associated Symptoms: global blurry vision, decreased hearing acuity bilat Narrative: Patient has had the above intermittent symptoms for months or years. She is used to them when her blood pressure goes up. She recently was switched from Dr. Singer to Dr. Tam, and he changed 2 of her 3 blood pressure medications, leaving her clonidine alone which she is still taking. She has been taking her medications as prescribed. She continues to have these blood pressure issues, which she had prior to having these changes. She has been monitoring her numbers at home for the past 5 days, they have been between 180 and 220 systolic. She called the office today regarding all of this and did not get a response so came to the emergency department. She denies any other new symptoms. She has been urinating well. No chest pain or shortness of breath, lightheadedness, or syncope. She states she was recently treated for a bladder infection and it seems improved. She was basically having symptoms of urgency and trouble starting a stream of urine. - Past Medical History (1) CVA (cerebral vascular accident) Status: Chronic (2) Essential hypertension Status: Chronic (3) HLD (hyperlipidemia) Status: Chronic (4) History of gastroesophageal reflux (GERD) Status: Chronic Past Medical History - Allergies and Home Meds Allergies/Adverse Reactions: Allergies Wmtngdp-Mjz-Ils Reductase Inhibitor Adverse Reaction (Verified 09/05/19 19:50) leg muscle weakness Primary Care Physician: Sarabjit Tam Chi, MD [Primary Care Provider] - Surgical History: no surgical history Lives: Alone Smoking Status: Never smoker - Family History Maternal Family History: Family History (Last Reviewed 07/16/19 @ 14:37 by Leyla Gannon) Mother Heart disease Family History: Reports: Heart Disease Sibling Family History: Family History (Last Reviewed 07/16/19 @ 14:37 by Leyla Gannon) Mother Heart disease Family History: Reports: Heart Disease Review of Systems General: Denies: Chills, Fever, Sweats Eyes: Reports: Blurred Vision - bilaterally - Intermittently. Denies: Diplopia ENT: Reports: - - Decreased hearing acuity. Denies: Bilateral ear pain, Rhinorrhea, Sore throat Cardiovascular: Denies: Chest pain, Palpitations, Heart racing Respiratory: Denies: Dyspnea, Cough, Dyspnea on exertion Gastrointestinal: Denies: Abdominal pain, Nausea, Vomiting, Diarrhea, Melena, Hematochezia Genitourinary: Denies: Dysuria, Hematuria, Frequency Musculoskeletal: Denies: Neck pain, Back pain, Swelling, Extremity Pain Skin: Denies: Rash, Wounds Neurological: Reports: Headache. Denies: Weakness, Numbness Physical Exam Vital Signs/Narrative: Vital Signs Temp Pulse Resp BP Pulse Ox 09/05/19 19:50 97.0 F L 66 16 218/105 H 98 Inital Vital Signs reviewed: Yes General: Well nourished, Well developed, No Acute Distress Head: Normocephalic, Atraumatic Eyes: Perrl, EOMI ENT: Moist mucous membranes, No rhinorrhea Neck: Supple, Nontender Cardiovascular: Regular rate, Regular rhythm, No murmurs Respiratory: No distress, CTA bilaterally, Chest nontender Abdomen: Normal bowel sounds Back: Nontender, Normal Inspection Extremities: Nontender, No edema Skin: Normal color, No rash, No Trauma Neurological: Alert, Oriented x3, Cranial nerves II-XII grossly intact, Normal Strength, Normal Sensation, Normal Gait Psychological: Normal affect, Normal Mood Diagnostic/Tx/Re-eval Impressions Brain CT 09/05/19 20:31 IMPRESSION: No evidence of acute intracranial bleed, mass or ischemia. Electronically Signed: Mejia Raymundo DO at 21:17 EST , Service support , 09/05/19 20:31 CT Brain [Brain/Head without Contrast] [CT] Stat Laboratory Results 09/05/19 09/05/19 20:45 20:45 WBC 5.7 RBC 3.94 L Hgb 11.6 L Hct 35.0 L MCV 88.8 MCH 29.4 MCHC 33.1 RDW Std Deviation 40.9 RDW Coeff of Lucía 12.5 Plt Count 256 MPV 10.5 Immature Gran % (Auto) 0.200 Neut % (Auto) 37.9 L Lymph % (Auto) 50.2 H [place] % (Auto) 9.6 Eos % (Auto) 1.6 Baso % (Auto) 0.5 Absolute Neuts (auto) 2.2 Absolute Lymphs (auto) 2.86 Nucleated RBC % 0 Sodium 134 L Potassium 4.0 Chloride 103 Carbon Dioxide 26.0 Anion Gap 5 BUN 23 H Creatinine 0.93 Estim Creat Clear Calc 64.75 Est GFR (MDRD) Af Amer 75 Est GFR (MDRD) Non-Af 62 BUN/Creatinine Ratio 24.7 H Glucose 125 H Calcium 8.7 - Medical Decision Making Patient was treated with hydralazine. Prior to this I look for an echo but there were none in the patient's history and since she has no significant systolic murmur I assume she does not have critical aortic stenosis. She had no complications and her blood pressure came down to the 180s. Her symptoms improved although she was seeing some spots in her vision globally, with no other focal neurologic symptoms. Her head scan was unremarkable. Prior to discharge, those visual disturbances resolved, therefore, I do not think this is indicative of acute stroke. Patient is advised to follow-up closely with her doctor. For now, we will increase her clonidine and leave her other medications the same. She states she had been taking 0.1 mg twice daily, but she has been taking a double dose at night for the last couple days, and she got a new prescription 2 days ago that she thinks is incorrect and shows a lower dose than all of the above, and she has not been following those directions. I will increase her to 0.2 mg 3 times daily given how high her pressures have been and advised that she see her doctor soon as possible. ED Disposition - Plan for ED Patient: Disposition: Home or Assisted Living Diagnosis: Accelerated hypertension Instructions: HYPERTENSION, Established, Out of Control Prescriptions: Clonidine HCl 0.2 mg PO TID #42 tab Transmission Status: Pending to [facility] [place] Referrals: Sarabjit Tam Chi, MD [Primary Care Provider] - As soon as possible Additional Instructions: For now increase your clonidine to the dose on the new prescription, which is 0.2 mg 3 times daily. You may use your old prescription until it runs out first if you wish. You were given your nighttime dose tonight, so do not take more clonidine when you get home tonight, but you may take your other nighttime medications, including metoprolol given your heart rate in the 70s after taking the labetalol you took earlier.
[2019-09-05 21:02] LABS: Anion Gap 5 (5-15); BUN 23 mg/dL (7-18); BUN/Creat Ratio 24.7 RATIO (10-20); Calcium,Total 8.7 mg/dL (8.5-10.1); Chloride 103 mmol/L (98-107); Creatinine, Serum 0.93 mg/dL (0.55-1.02); EST Glomerular Filtration Rate 62 mL/min (>60); Est Glom Filt Rate - Afr Amer 75 mL/min (>60); Estimated Creatinine Clearance 64.75 ml/min; Glucose 125 mg/dL (74-106); Sodium Level 134 mmol/L (136-145)
[2019-09-05 21:18] LABS: Absolute Lymphocyte Count 2.86 X10^3/uL (0.83-4.51); Absolute Neutrophil Count 2.2 X10^3/uL (2.0-7.7); Basophil# 0.03 X10^3/uL; Basophil% 0.5 % (0-1); Eosinophil# 0.09 X10^3/uL; Eosinophils% 1.6 % (0-5); Hemoglobin 11.6 g/dL (12.0-15.0); Lymphocyte # 2.86 X10^3/ul (4.0); Lymphocyte % 50.2 % (19-41); Mean Corp Hgb Conc 33.1 g/dL (32-36); Mean Corpuscular Hgb 29.4 pg (27.0-32.0); Mean Corpuscular Volume 88.8 fL (81-99); Mean Platelet Vol. 10.5 fl (6.2-12.0); Monocyte# 0.55 X10^3/uL; Monocyte% 9.6 % (0-10); NRBC Flagged by Analyzer 0 % (0-5); Neutrophil # 2.16 X10^3/uL (2.7-7.7); Neutrophil % 37.9 % (47-70); Platelet Count 256 K/mm3 (150-450); RBC Distribution Width CV 12.5 % (11.6-14.6); RBC Distribution Width SD 40.9 fl (35.1-43.9); Red Blood Count 3.94 M/mm3 (4.2-5.4); White Blood Count 5.7 K/mm3 (4.4-11.0)
[2019-09-05 21:35] VITALS: BP 201/74; PULSE 64; RESP 16; O2SAT 98
[2019-09-05] MEDS: hydrALAZINE 20 MG/ML Vial 10 MG IV (21:37)
[2019-09-05] MEDS: cloNIDine HCl 0.1 MG Tablet 0.2 MG PO (22:33)
[2019-09-05 22:48] VITALS: BP 192/65; PULSE 70; RESP 16; O2SAT 98
== END 2019-09-05 22:48 | disposition home or self-care (01) ==
PROVIDERS: Emergency Provider Emergency Medicine; PCP Family Medicine Geriatric Medicine
DX: I10 Essential (primary) hypertension (principal); E78.5 Hyperlipidemia, unspecified; K21.9 Gastro-esophageal reflux disease without esophagitis; Z79.82 Long term (current) use of aspirin; Z86.73 Personal history of transient ischemic attack (TIA), and cerebral infarction without residual deficits; Z82.49 Family history of ischemic heart disease and other diseases of the circulatory system
CPT/HCPCS: 70450; 80048; 85025; 96374; 99284; A4216

== ENCOUNTER → 2019-11-21 07:11 | Outpatient (CLI) | payer MEDICARE, SELFPAY ==
[2019-10-31 13:34] VITALS: BMI 34.7
--- NOTE | 2019-11-21 07:14 | ECHOD_ITS ---
Reason For Study: Murmur Procedure This was a 2D Doppler, Color Flow transthoracic echocardiogram. The exam was of adequate technical quality. Exam performed in department. Left Ventricle Normal LV size. Left ventricular systolic function is normal. The estimated ejection fraction is 65 %. No regional wall motion abnormalities noted. Right Ventricle Normal RV size. Normal systolic function. Atria The left atrium is moderately enlarged. The right atrium is mildly enlarged. No doppler evidence for ASD. Mitral Valve There is mild mitral annular calcification. Extension of the mitral annular calcification onto the base of the posterior mitral valve leaflet. Mild (1+) mitral valve insufficiency. Tricuspid Valve Normal tricuspid valve. Mild tricuspid valve insufficiency. Right ventricular systolic pressure estimated to be 42 mmHg. Aortic Valve Trisinus/trileaflet aortic valve. Mild diffuse aortic valve thickening. Trivial aortic valve insufficiency. Pulmonic Valve The pulmonic valve is not well visualized. Great Vessels Normal sized aortic root. Pericardium/Pleural No pericardial effusion. MMode/2D Measurements & Calculations LVIDd: 4.0 cm IVSd: 1.4 cm Ao root diam: 2.8 cm LVIDs: 2.3 cm LVPWd: 1.1 cm RVDd: 3.0 cm FS: 43.3 % LAV(MOD-bp): 68.5 ml EDV(MOD-sp4): 60.5 ml EDV(MOD-sp2): 60.5 ml LAV(MOD-bp) Indexed: 39.6 ml/m2 ESV(MOD-sp4): 19.0 ml EF(MOD-sp2): 64.4 % LAV(MOD-sp2): 56.8 ml EF(MOD-sp4): 68.5 % LAV(MOD-sp4): 80.4 ml SV(MOD-sp4): 41.4 ml SV(MOD-sp2): 39.0 ml LA A4 area: 24.2 cm2 LA dimension(2D): 4.3 cm RA A4 area: 17.7 cm2 Doppler Measurements & Calculations MV E max jimy: 97.2 cm/sec Lat Peak E' Jimy: 8.5 cm/sec Med Peak E' Jimy: 5.6 cm/sec MV A max jimy: 76.7 cm/sec E/E' lat: 11.5 E/E' med: 17.5 MV E/A: 1.3 Ao V2 max: 167.5 cm/sec LV V1 max: 109.4 cm/sec PA V2 max: 111.1 cm/sec Ao max P.2 mmHg LV V1 max P.8 mmHg TR max jimy: 312.9 cm/sec TR max P.2 mmHg Interpretation Summary Left ventricular systolic function is normal. The estimated ejection fraction is 65 %. The left atrium is moderately enlarged. The right atrium is mildly enlarged. There is mild mitral annular calcification. Extension of the mitral annular calcification onto the base of the posterior mitral valve leaflet. Mild (1+) mitral valve insufficiency. Mild tricuspid valve insufficiency. Mild diffuse aortic valve thickening. Trivial aortic valve insufficiency. Right ventricular systolic pressure estimated to be 42 mmHg. Transmitral diastolic flow velocities suggest diastolic dysfunction (pseudonormal pattern). Ordering Physician: Lei Jauregui Referring Physician: Sarabjit Tam Chi Performed By: Kamila Tello RDCS
--- NOTE | 2019-11-21 09:00 | STRESSREP ---
Stress Test Report Date: 11-21-2019 Procedure: Pharmacologic stress nuclear imaging study Indications: Pain; dyspnea on exertion: Peripheral arterial occlusive disease Consent: Per the patient Procedure: The patient underwent pharmacologic (Regadenoson) evaluation with a peak heart rate of 94 beats per minute (64 %predicted maximal heart rate) and a peak blood pressure of 174/80 mmHg. The baseline ECG demonstrated normal sinus rhythm: poor R wave progression. The peak pharmacologic ECG demonstrated no obvious ECG changes. There were no cardiac dysrhythmias pretest, during pharmacologic infusion, or recovery. Patient noted chest discomfort during recovery with spontaneous resolution to baseline. The examination was discontinued secondary to completion of protocol. Impression: 1. Pharmacologic (Regadenoson) evaluation 2. Peak pharmacologic ECG with no obvious ECG changes. 3. There were no cardiac dysrhythmias pretest, during pharmacologic infusion, or recovery. 4. Nuclear images pending Myocardial perfusion imaging study: Technique: The patient was injected with 12.0 millicuries of technetium 99m Cardiolite and subsequently rest SPECT Cardiolite nuclear imaging was obtained in the horizontal long, vertical long, and short axis views. The patient underwent pharmacologic (Regadenoson) evaluation with a peak heart rate of 94 beats per minute (64 % percent predicted maximal heart rate) and a peak blood pressure of 174/80 mmHg. The patient was injected with a 36.0 millicuries of technetium 99m Cardiolite and subsequently stress SPECT Cardiolite nuclear imaging was obtained in the horizontal long, vertical long, and short axis views. A gated Cardiolite study at peak stress was obtained. Interpretation: Rest and stress SPECT Cardiolite nuclear imaging status post realignment, normalization, and attenuation correction demonstrate relative uniform tracer uptake and myocardial perfusion appearing within normal limits. There is end systolic thickening and brightening. The gated Cardiolite study demonstrates myocardial thickening and inward wall motion. The reported LVEF is 71 %. Impression: 1. Rest and stress SPECT Cardiolite nuclear imaging demonstrate relative uniform tracer uptake and myocardial perfusion appearing within normal limits. 2. The gated Cardiolite study reports an LVEF of 71 %. This note was generated with The [employer]um[employer] software. It may contain incorrect words, spelling, and punctuation that were not noted in checking the note before signing.
== END ==
PROVIDERS: PCP Family Medicine Geriatric Medicine; Referring Provider Internal Medicine Cardiovascular Disease; Visit Provider Internal Medicine Cardiovascular Disease
DX: R07.9 Chest pain, unspecified (principal)
CPT/HCPCS: 78452; 93017; 93306; A9500; A4216; J2785

== ENCOUNTER → 2019-11-28 11:23 | Outpatient (CLI) | payer MEDICARE, SELFPAY ==
[2019-11-21 14:07] VITALS: BMI 34.3
[2019-11-28 12:44] LABS: Absolute Lymphocyte Count 1.41 X10^3/uL (0.83-4.51); Absolute Neutrophil Count 2.3 X10^3/uL (2.0-7.7); Basophil# 0.04 X10^3/uL; Basophil% 0.9 % (0-1); Eosinophil# 0.12 X10^3/uL; Eosinophils% 2.6 % (0-5); Hematocrit 31.9 % (37-47); Hemoglobin 10.3 g/dL (12.0-15.0); Lymphocyte # 1.41 X10^3/ul (4.0); Lymphocyte % 30.5 % (19-41); Mean Corp Hgb Conc 32.3 g/dL (32-36); Mean Corpuscular Hgb 29.4 pg (27.0-32.0); Mean Corpuscular Volume 91.1 fL (81-99); Mean Platelet Vol. 10.9 fl (6.2-12.0); Monocyte# 0.72 X10^3/uL; Monocyte% 15.6 % (0-10); NRBC Flagged by Analyzer 0 % (0-5); Neutrophil # 2.33 X10^3/uL (2.7-7.7); Neutrophil % 50.2 % (47-70); Platelet Count 300 K/mm3 (150-450); RBC Distribution Width CV 13.8 % (11.6-14.6); White Blood Count 4.6 K/mm3 (4.4-11.0)
[2019-11-28 12:59] LABS: Vitamin D,25 Hydroxy 35.6 ng/mL
[2019-11-28 13:17] LABS: ALB/GLOB Ratio 0.9 RATIO (0.9-2.4); AST(SGOT) 13 U/L (15-37); Alanine Aminotransfer ALT/SGPT 24 U/L (13-56); Albumin, Serum 3.3 g/dL (3.2-5.0); Alkaline Phosphatase 85 U/L (45-117); Anion Gap 7 (5-15); BUN 13 mg/dL (7-18); BUN/Creat Ratio 16.6 RATIO (10-20); Calcium,Total 8.5 mg/dL (8.5-10.1); Chloride 100 mmol/L (98-107); Creatinine, Serum 0.78 mg/dL (0.55-1.02); EST Glomerular Filtration Rate 76 mL/min (>60); Est Glom Filt Rate - Afr Amer 92 mL/min (>60); Globulin 3.6 g/dL (2.2-4.2); Glucose 76 mg/dL (74-106); Potassium 4.2 mmol/L (3.5-5.1); Protein, Total 6.9 g/dL (6.4-8.2); Sodium Level 132 mmol/L (136-145); Thyroid Stim Hormone (TSH) 1.55 uIU/mL (0.358-3.74)
== END ==
PROVIDERS: PCP Family Medicine Geriatric Medicine; Visit Provider Family Medicine Geriatric Medicine
DX: E55.9 Vitamin D deficiency, unspecified (principal); I10 Essential (primary) hypertension
CPT/HCPCS: 36415; 80053; 82306; 84443; 85025

== ENCOUNTER → 2019-12-06 12:48 | Outpatient (CLI) | payer MEDICARE, SELFPAY ==
[2019-11-21 14:07] VITALS: BMI 34.3
--- NOTE | 2019-12-06 12:53 | CDU_ITS ---
Reason For Study: CAROTID ARTERY STENOSIS Rt. Velocities/BP Lt. Velocities/BP Prox CCA 83.3/12.9 cm/sec. Prox CCA 124.0/12.6 cm/sec. Mid CCA 87.2/14.2 cm/sec. Mid CCA 85.8/10.9 cm/sec. Dist CCA 78.1/15.5 cm/sec. Dist CCA 72.3/14.6 cm/sec. Prox ICA 60.4/11.3 cm/sec. Prox ICA 76.0/16.9 cm/sec. Mid ICA 64.1/18.7 cm/sec. Mid ICA 77.5/23.1 cm/sec. Dist ICA 77.6/19.9 cm/sec. Dist ICA 70.8/19.0 cm/sec. Rt. ICA/CCA = 77.6/87.2=0.9. Lt. ICA/CCA = 77.5/124.0=0.6. Prox ECA 120.4/5.3 cm/sec. Prox ECA 129.9/7.1 cm/sec. Rt. Vert. 66.6/15.0 cm/sec. Lt. Vert. 47.2/13.1 cm/sec. Right Extracranial There is homogeneous, smooth atherosclerotic plaque noted in the right common carotid artery. There is homogeneous, smooth atherosclerotic plaque noted in the right internal carotid artery. There is heterogeneous, irregular atherosclerotic plaque noted in the right external carotid artery. Antegrade flow is noted in the right vertebral artery. Left Extracranial There is homogeneous, smooth atherosclerotic plaque noted in the left common carotid artery. There is homogeneous, smooth atherosclerotic plaque noted in the left internal carotid artery. The left external carotid artery is tortuous. The left external carotid artery is not well visualized. Antegrade flow is noted in the left vertebral artery. Procedure Carotid Duplex [id number]. The exam was diagnostic. Exam performed in department. Interpretation Summary Mild (<50%) stenosis right extracranial internal carotid. Mild (<50%) stenosis left extracranial internal carotid. Flow within the vertebral arteries is antegrade bilaterally. Ordering Physician: Sarabjit Tam Referring Physician: Sarabjit Tam Chi Performed By: Veronica Durand, JOSEPH, RVT
== END ==
PROVIDERS: PCP Family Medicine Geriatric Medicine; Referring Provider Family Medicine Geriatric Medicine; Visit Provider Family Medicine Geriatric Medicine
DX: I65.23 Occlusion and stenosis of bilateral carotid arteries (principal)
CPT/HCPCS: 93880

== ENCOUNTER → 2019-12-09 16:25 | Outpatient (CLI) | payer MEDICARE, SELFPAY ==
[2019-11-21 14:07] VITALS: BMI 34.3
[2019-12-09 17:13] LABS: Absolute Neutrophil Count 3.3 X10^3/uL (2.0-7.7); Basophil# 0.03 X10^3/uL; Basophil% 0.5 % (0-1); Eosinophil# 0.11 X10^3/uL; Eosinophils% 1.9 % (0-5); Hematocrit 31.7 % (37-47); Hemoglobin 10.3 g/dL (12.0-15.0); Lymphocyte % 31.3 % (19-41); Mean Corp Hgb Conc 32.5 g/dL (32-36); Mean Corpuscular Hgb 30.3 pg (27.0-32.0); Mean Corpuscular Volume 93.2 fL (81-99); Mean Platelet Vol. 10.3 fl (6.2-12.0); Monocyte# 0.54 X10^3/uL; Monocyte% 9.4 % (0-10); NRBC Flagged by Analyzer 0 % (0-5); Neutrophil # 3.25 X10^3/uL (2.7-7.7); Neutrophil % 56.6 % (47-70); Platelet Count 308 K/mm3 (150-450); RBC Distribution Width CV 13.9 % (11.6-14.6); RBC Distribution Width SD 47.2 fl (35.1-43.9); RET-HE 34.9 pg (30-35); Reticulocyte Count 1.37 % (0.5-1.5); White Blood Count 5.8 K/mm3 (4.4-11.0)
[2019-12-09 17:27] LABS: Vitamin B12 493 pg/mL (211-911)
[2019-12-09 17:48] LABS: Ferritin 91 ng/mL (8-252); Iron 44 ug/dL (50-170); Iron Binding Capacity,Total 325 ug/dL (250-450)
== END ==
PROVIDERS: PCP Family Medicine Geriatric Medicine; Visit Provider Family Medicine Geriatric Medicine
DX: D64.9 Anemia, unspecified (principal)
CPT/HCPCS: 36415; 82607; 82728; 82746; 83540; 83550; 85025; 85045

== ENCOUNTER → 2019-12-13 10:15 | Outpatient (CLI) | payer MEDICARE, SELFPAY ==
[2019-11-21 14:07] VITALS: BMI 34.3
[2019-12-13 11:06] LABS: Anion Gap 7 (5-15); BUN 16 mg/dL (7-18); BUN/Creat Ratio 17.8 RATIO (10-20); Calcium,Total 8.8 mg/dL (8.5-10.1); Chloride 99 mmol/L (98-107); EST Glomerular Filtration Rate 65 mL/min (>60); Est Glom Filt Rate - Afr Amer 79 mL/min (>60); Glucose 87 mg/dL (74-106); Sodium Level 132 mmol/L (136-145)
== END ==
PROVIDERS: PCP Family Medicine Geriatric Medicine; Referring Provider Internal Medicine Nephrology; Visit Provider Internal Medicine Nephrology
DX: N18.2 Chronic kidney disease, stage 2 (mild) (principal)
CPT/HCPCS: 36415; 80048

== ENCOUNTER → 2020-01-09 13:52 | Outpatient (CLI) | payer MEDICARE, SELFPAY ==
[2019-11-21 14:07] VITALS: BMI 34.3
[2020-01-09 15:55] LABS: Hematocrit 32.4 % (37-47); Hemoglobin 10.5 g/dL (12.0-15.0)
== END ==
PROVIDERS: PCP Family Medicine Geriatric Medicine; Visit Provider Family Medicine Geriatric Medicine
DX: N39.0 Urinary tract infection, site not specified (principal); D50.9 Iron deficiency anemia, unspecified
CPT/HCPCS: 36415; 85014; 85018; 87086; 87088; 87186

== ENCOUNTER → 2020-03-02 11:04 | Outpatient (CLI) | payer MEDICARE, SELFPAY ==
[2020-02-25 14:06] VITALS: BMI 34.5
[2020-03-02 12:48] LABS: Absolute Neutrophil Count 3.8 X10^3/uL (2.0-7.7); Basophil% 0.3 % (0-1); Eosinophils% 1.7 % (0-5); Hemoglobin 11.1 g/dL (12.0-15.0); Lymphocyte % 24.8 % (19-41); Mean Corp Hgb Conc 32.6 g/dL (32-36); Mean Corpuscular Hgb 29.8 pg (27.0-32.0); Mean Corpuscular Volume 91.4 fL (81-99); Mean Platelet Vol. 10.6 fl (6.2-12.0); Monocyte% 7.5 % (0-10); Neutrophil # 3.76 X10^3/uL (2.7-7.7); Neutrophil % 65.2 % (47-70); Platelet Count 323 K/mm3 (150-450); RBC Distribution Width CV 12.3 % (11.6-14.6); RBC Distribution Width SD 41.3 fl (35.1-43.9); Red Blood Count 3.72 M/mm3 (4.2-5.4); White Blood Count 5.8 K/mm3 (4.4-11.0)
[2020-03-02 12:49] LABS: Absolute Lymphocyte Count 1.43 X10^3/uL (0.83-4.51); Basophil# 0.02 X10^3/uL; Lymphocyte # 1.43 X10^3/ul (4.0); Monocyte# 0.43 X10^3/uL; NRBC Flagged by Analyzer 0 % (0-5)
[2020-03-02 13:00] LABS: Vitamin D,25 Hydroxy 41.4 ng/mL
[2020-03-02 13:05] LABS: ALB/GLOB Ratio 0.9 RATIO (0.9-2.4); AST(SGOT) 18 U/L (15-37); Alanine Aminotransfer ALT/SGPT 25 U/L (13-56); Albumin, Serum 3.4 g/dL (3.2-5.0); Alkaline Phosphatase 84 U/L (45-117); Anion Gap 7 (5-15); BUN 12 mg/dL (7-18); Calcium,Total 8.5 mg/dL (8.5-10.1); Chloride 98 mmol/L (98-107); EST Glomerular Filtration Rate 74 mL/min (>60); Est Glom Filt Rate - Afr Amer 90 mL/min (>60); Ferritin 86 ng/mL (8-252); Globulin 3.9 g/dL (2.2-4.2); Glucose 110 mg/dL (74-106); Iron 58 ug/dL (50-170); Iron Binding Capacity,Total 320 ug/dL (250-450); Potassium 4.1 mmol/L (3.5-5.1); Protein, Total 7.3 g/dL (6.4-8.2); Sodium Level 132 mmol/L (136-145); Thyroid Stim Hormone (TSH) 1.99 uIU/mL (0.358-3.74)
== END ==
PROVIDERS: PCP Family Medicine Geriatric Medicine; Visit Provider Family Medicine Geriatric Medicine
DX: E55.9 Vitamin D deficiency, unspecified (principal); I10 Essential (primary) hypertension; N39.0 Urinary tract infection, site not specified; D50.9 Iron deficiency anemia, unspecified
CPT/HCPCS: 36415; 80053; 82306; 82728; 83540; 83550; 84443; 85025; 87086; 87088; 87186

== ENCOUNTER 2020-03-17 12:25 | Inpatient (IN) | payer MEDICARE, SELFPAY ==
[2020-02-25 14:06] VITALS: BMI 34.5
[2020-03-17] VITALS (16 sets, daily range): BP systolic 92–208; BP diastolic 61–89; PULSE 57–71; RESP 11–20; TEMP 36.4–36.9; O2SAT 94–98; BMI 34.7; BMI 34.1
--- NOTE | 2020-03-17 12:42 | EKG12_ITS ---
Test Reason : Blood Pressure : / mmHG Vent. Rate : 060 BPM Atrial Rate : 060 BPM P-R Int : 168 ms QRS Dur : 094 ms QT Int : 456 ms P-R-T Axes : 031 -32 073 degrees QTc Int : 456 ms Normal sinus rhythm Left axis deviation Nonspecific ST abnormality Abnormal ECG Confirmed by ORION SILVER, YODIT ([id number]), editor trade journal JESSICA ANGUIANO ([id number]) on 03/19/2020 1:12:34 PM Referred By: LATOYA Confirmed By:YODIT SEARS MD
--- NOTE | 2020-03-17 12:44 | ED.DCSUM_ITS ---
History of Present Illness Chief Complaint: Chest Pain Informant: Patient Onset: Today Narrative: 74-year-old female presents to the emergency department for the evaluation of chest pain. She tells me that around 10:00 she left to go to [facility]. By 1030 she was shopping. She states that the carts at [facility] are much higher due to her statue than she typically likes to use. After pushing the cart for a while she began to have pain in the left arm and into the posterior upper back. She started to pull the cart got in the car went home took some Tylenol and was feeling better. Then she started to cut onions when she developed pain in the arm the back and on the left side of her chest. At this point she called several people and nobody could help get her to the hospital so she drove herself. She notes that she had a stress test earlier this year that was normal. She has had an outpatient evaluation for chest pain that was felt to probably be not cardiac. She has a history of hard to manage hypertension per her. States that typically when her blood pressure is very high she gets ringing in her ears and head sensations. She however is not experiencing this today despite a systolic pressures of 210. She denies any shortness of breath diaphoresis nausea vomiting. 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 - Past Medical History (1) Near syncope Status: Chronic (2) Syncope due to orthostatic hypotension Status: Chronic (3) CKD (chronic kidney disease) Status: Chronic (4) Essential hypertension Status: Chronic (5) HLD (hyperlipidemia) Status: Chronic (6) History of gastroesophageal reflux (GERD) Status: Chronic (7) Hyponatremia Status: Acute (8) Non-rheumatic mitral regurgitation Status: Chronic (9) Syncope and collapse Status: Suspected Past Medical History - Allergies and Home Meds Allergies/Adverse Reactions: Allergies Bsxyadk-Rme-Ovl Reductase Inhibitor Adverse Reaction (Verified 03/17/20 12:25) leg muscle weakness Surgical History: no surgical history Smoking Status: Never smoker - Family History Maternal Family History: Family History (Last Reviewed 02/25/20 @ 13:50 by Aleyda Barber) Mother CAD (coronary artery disease) Brother CVA (cerebral vascular accident) Sister CAD (coronary artery disease) Sister Diabetes Brother Diabetes Brother CAD (coronary artery disease) Family History: Reports: Heart Disease Sibling Family History: Family History (Last Reviewed 02/25/20 @ 13:50 by Aleyda Barber) Mother CAD (coronary artery disease) Brother CVA (cerebral vascular accident) Sister CAD (coronary artery disease) Sister Diabetes Brother Diabetes Brother CAD (coronary artery disease) Family History: Reports: Heart Disease Review of Systems General: Denies: Chills, Fever, Sweats Eyes: Denies: Visual changes - bilaterally, Diplopia ENT: Denies: Rhinorrhea, Sore throat Cardiovascular: Reports: Chest pain. Denies: Palpitations Respiratory: Denies: Dyspnea, Cough, Dyspnea on exertion Gastrointestinal: Denies: Abdominal pain, Nausea, Vomiting, Diarrhea, Melena, Hematochezia Genitourinary: Denies: Dysuria, Hematuria, Frequency Musculoskeletal: Reports: Back pain, Extremity Pain Skin: Denies: Rash, Wounds Neurological: Denies: Headache, Weakness, Numbness Physical Exam Vital Signs/Narrative: Vital Signs Temp Pulse Resp BP Pulse Ox 03/17/20 12:25 97.9 F 71 20 H 208/85 H 97 Inital Vital Signs reviewed: Yes General: Well nourished, Well developed, No Acute Distress Head: Normocephalic, Atraumatic Eyes: Perrl, EOMI ENT: Moist mucous membranes, No rhinorrhea Neck: Supple, Nontender Cardiovascular: Regular rate, Regular rhythm, No murmurs Respiratory: No distress, CTA bilaterally, Chest tenderness Abdomen: Soft, Nontender, Nondistended, Normal bowel sounds Back: - - Left upper back tenderness to palpation Extremities: Nontender, No edema Skin: Normal color, No rash Neurological: Alert, Oriented x3, Cranial nerves II-XII grossly intact, Normal Strength, Normal Sensation Psychological: Normal affect, Normal Mood Diagnostic/Tx/Re-eval Clinical Impression(s) from Imaging Studies Chest X-Ray 03/17/20 12:55 IMPRESSION: Stable examination. Electronically Signed: Remy Gavin, at 13:41 EDT , Service support , Laboratory Last Values WBC 6.1 K/mm3 (4.4-11.0) 03/17/20 12:35 RBC 3.77 M/mm3 (4.2-5.4) L 03/17/20 12:35 Hgb 11.4 g/dL (12.0-15.0) L 03/17/20 12:35 Hct 34.2 % (37-47) L 03/17/20 12:35 MCV 90.7 fL (81-99) 03/17/20 12:35 MCH 30.2 pg (27.0-32.0) 03/17/20 12:35 MCHC 33.3 g/dL (32-36) 03/17/20 12:35 RDW Std Deviation 42.0 fl (35.1-43.9) 03/17/20 12:35 RDW Coeff of Lucía 12.8 % (11.6-14.6) 03/17/20 12:35 Plt Count 316 K/mm3 (150-450) 03/17/20 12:35 MPV 10.0 fl (6.2-12.0) 03/17/20 12:35 Immature Gran % (Auto) 0.300 % (0.0-0.9) 03/17/20 12:35 Neut % (Auto) 60.8 % (47-70) 03/17/20 12:35 Lymph % (Auto) 27.9 % (19-41) 03/17/20 12:35 [place] % (Auto) 8.9 % (0-10) 03/17/20 12:35 Eos % (Auto) 1.8 % (0-5) 03/17/20 12:35 Baso % (Auto) 0.3 % (0-1) 03/17/20 12:35 Absolute Neuts (auto) 3.7 X10^3/uL (2.0-7.7) 03/17/20 12:35 Absolute Lymphs (auto) 1.70 X10^3/uL (0.83-4.51) 03/17/20 12:35 Nucleated RBC % 0 % (0-5) 03/17/20 12:35 Sodium 131 mmol/L (136-145) L 03/17/20 12:35 Potassium 4.2 mmol/L (3.5-5.1) 03/17/20 12:35 Chloride 100 mmol/L (98-107) 03/17/20 12:35 Carbon Dioxide 26.0 mmol/L (21.0-32.0) 03/17/20 12:35 Anion Gap 5 (5-15) 03/17/20 12:35 BUN 17 mg/dL (7-18) 03/17/20 12:35 Creatinine 0.87 mg/dL (0.55-1.02) 03/17/20 12:35 Estim Creat Clear Calc 68.80 ml/min 03/17/20 12:35 Est GFR (MDRD) Af Amer 82 mL/min (>60) 03/17/20 12:35 Est GFR (MDRD) Non-Af 68 mL/min (>60) 03/17/20 12:35 BUN/Creatinine Ratio 19.6 RATIO (10-20) 03/17/20 12:35 Glucose 102 mg/dL (74-106) 03/17/20 12:35 Calcium 8.9 mg/dL (8.5-10.1) 03/17/20 12:35 Troponin I 0.186 ng/mL (<0.045) H 03/17/20 12:35 - EKG Initial EKG Interpretation: Sinus Rhythm - EKG demonstrates a normal sinus rhythm at a rate of 69. No concerning features of ACS. - Medical Decision Making She was noted be significantly hypertensive. Blood pressure improved with nitroglycerin temporarily. Her pain level went from a 4 to a 1 but back up to 4. She refused further nitroglycerin. Patient received labetalol. Her troponin is 0.18 with a normal EKG. She had a normal stress test in October. I spoke with on-call cardiology Dr. Jauregui who knows the patient. Our plan will be to admit her for further cardiac evaluation and management of blood pressure. - Critical Care Time Critical care time (excluding procedures): 30-74 minutes - 35 min, Discussing w/Patient &/or Family/Powder Core Tester, Discussing w/Consultants, Arranging Admission or Transfer, Performing Direct Patient Care at Bedside ED Disposition - Plan for ED Patient: Disposition: Acute Care Hospital [facility] Diagnosis: Chest pain, Hypertensive urgency, Elevated troponin
[2020-03-17] MEDS: Aspirin 81 MG TAB.CHEW 324 MG PO (12:50)
--- NOTE | 2020-03-17 12:55 | RAD_ITS ---
STUDY: X-RAY CHEST REASON FOR EXAM: Female, 74 years old. CHEST PAIN AND HIGH BLOOD PRESSURE TECHNIQUE: Single AP portable view of the chest. COMPARISON: Comparison is made with prior study dated 02/27/2019. FINDINGS: EKG electrodes are seen. Hyperinflation. The lungs are clear. There is no demonstrated pleural abnormality. There is mild cardiac enlargement. Calcified right subcarinal lymph node. Normal visualized pulmonary arteries. Normal visualized aortic arch and descending thoracic aorta. Normal visualized thoracic spine. Normal visualized ribs, clavicles, and shoulders. Hiatal hernia. RAD/Chest 1 View (Portable) IMPRESSION: Stable examination. Electronically Signed: Remy Gavin, at 13:41 EDT , Service support ,
[2020-03-17 13:00] LABS: Absolute Neutrophil Count 3.7 X10^3/uL (2.0-7.7); Basophil# 0.02 X10^3/uL; Basophil% 0.3 % (0-1); Eosinophil# 0.11 X10^3/uL; Eosinophils% 1.8 % (0-5); Hematocrit 34.2 % (37-47); Hemoglobin 11.4 g/dL (12.0-15.0); Lymphocyte % 27.9 % (19-41); Mean Corp Hgb Conc 33.3 g/dL (32-36); Mean Corpuscular Hgb 30.2 pg (27.0-32.0); Mean Corpuscular Volume 90.7 fL (81-99); Monocyte# 0.54 X10^3/uL; Monocyte% 8.9 % (0-10); NRBC Flagged by Analyzer 0 % (0-5); Neutrophil # 3.71 X10^3/uL (2.7-7.7); Neutrophil % 60.8 % (47-70); Platelet Count 316 K/mm3 (150-450); RBC Distribution Width CV 12.8 % (11.6-14.6); Red Blood Count 3.77 M/mm3 (4.2-5.4); White Blood Count 6.1 K/mm3 (4.4-11.0)
[2020-03-17 13:05] LABS: Anion Gap 5 (5-15); BUN 17 mg/dL (7-18); BUN/Creat Ratio 19.6 RATIO (10-20); Calcium,Total 8.9 mg/dL (8.5-10.1); Chloride 100 mmol/L (98-107); Creatinine, Serum 0.87 mg/dL (0.55-1.02); EST Glomerular Filtration Rate 68 mL/min (>60); Est Glom Filt Rate - Afr Amer 82 mL/min (>60); Glucose 102 mg/dL (74-106); Potassium 4.2 mmol/L (3.5-5.1); Sodium Level 131 mmol/L (136-145)
[2020-03-17] MEDS: Nitroglycerin SL (ED/IMG/CATH) 0.4 MG TABLET SUBLINGUAL ×2 (13:37→14:00)
[2020-03-17] MEDS: Labetalol 100 MG/20 ML Vial 20 MG IV (14:58)
--- NOTE | 2020-03-17 15:26 | NURSING ---
RENEE KLEIN CP, ELEVATED TROP
[2020-03-17] MEDS: cloNIDine HCl 0.1 MG Tablet PO (15:36)
--- NOTE | 2020-03-17 15:54 | PCM.HP.STD ---
Problem List (1) Hyponatremia Status: Acute History of Present Illness Date of Admission: 03/17/20 Ms Stevens is a 74 year old F with a PMH of difficult to control HTN, GERD, Stroke, CKD stage 2, anemia-mild, HPL with statin allergy, vaginal wall prolapse and anxiety/depression who presented to the ED on 03/17/2020 with chest pain. She states on Monday evening she noted B arm pain that would not go away and though maybe her BP was elevated and when she took it with her home cuff it would not read so she took a prn clonidine that she was prescribed. She still was having B arm discomfort and therefore took and extra hydralazine as she suspected that her BP was still elevated and then after awhile she felt better. On Monday she states that she felt fine. Today she felt fine when she got up and then went to [employer] to shop. She was pushing a cart and walking through the store when she began to have L sided CP that radiated to the L arm. Her sx persisted until she went out to drive home and by the time she got home she was feeling better. She then was making soup in the kitchen and her pain started again. This is when she decided to come into the ED. She has difficulty describing her pain but states that she feels like something is sitting on her chest and that she has a band around her arm. Both of those sx are still present and she states that the nitro that she was given by the ED did not help her sx at all and she has opted not to take any further nitro at this time. Her EKG has not changes c/w ischemia. Her VS are stable except for her BP. Upon arrival her BP was 208/85 and has come down to 184/74 with labetalol IVP. HR is now 59 after labetalol. She takes multiple meds for her BP but some are PRN and only her losartan is maxed out. Her initial troponin was elevated to 1.86. She has had multiple troponin in the past and she has never had elevations. The ED did talk to Dr. Jauregui who wanted her admitted with better BP control and for possible further work-up for her CP/troponin elevation. Pt did have a Cardiolite Nuclear Stress test done in 11/2019 and it was negative. Peak BP on that study was 174/80. pt states that her BP has been notoriously difficult to manage. Past Medical History Past Medical History (Chronic Problems): Chronic Problems (Last Reviewed 02/25/20 @ 13:50 by Aleyda Barber) Non-rheumatic mitral regurgitation (Chronic) CKD (chronic kidney disease) (Chronic) Pessary maintenance (Chronic) Essential hypertension (Chronic) History of gastroesophageal reflux (GERD) (Chronic) Syncope due to orthostatic hypotension (Chronic) HLD (hyperlipidemia) (Chronic) Near syncope (Chronic) Medical History: Medical History (Last Reviewed 03/17/20 @ 16:[address] Elisa Joshua, DO) Non-rheumatic mitral regurgitation (Chronic) I34.0 CKD (chronic kidney disease) (Chronic) N18.9 Vaginal wall prolapse (Acute) N81.10 Pessary maintenance (Chronic) Z46.89 Essential hypertension (Chronic) I10 History of gastroesophageal reflux (GERD) (Chronic) Z87.19 Syncope due to orthostatic hypotension (Chronic) I95.1 Hyponatremia (Acute) E87.1 Syncope and collapse (Suspected) R55 HLD (hyperlipidemia) (Chronic) E78.5 Near syncope (Chronic) Anxiety and depression F41.8 CVA (cerebral vascular accident) I63.9 Allergies Fsieyzx-Kqy-Ohe Reductase Inhibitor Adverse Reaction (Verified 03/17/20 12:25) leg muscle weakness Home Medications: Ambulatory Orders Medication Instructions Recorded aspirin 81 mg tablet,delayed 81 mg PO DAILY #1 tab 10/31/19 release clonidine HCl 0.1 mg tablet 0.1 mg PO BID PRN 10/31/19 furosemide 20 mg tablet 20 mg PO DAILY PRN PRN 10/31/19 labetalol 300 mg tablet 300 mg PO BID 10/31/19 hydralazine 25 mg tablet 25 mg PO TID 01/31/20 losartan 100 mg tablet 50 mg PO BID tab 01/31/20 estradiol See Rx Instructions VAGINAL 02/25/20 .COMPLEX #42.5 g Omeprazole 40 mg PO DAILY 03/17/20 Surgical History: Surgical History (Last Reviewed 03/17/20 @ 16:[address] Elisa Joshua, DO) History of bilateral cataract extraction Z98.41, Z98.42 Surgical History: no surgical history Psychiatric History: Anxiety [employer] History: No pertinent [employer] history Lives: Alone Smoking Status: Never smoker Tobacco Use: Non-smoker Alcohol: None Drugs: None - *Family History Maternal Family History: Family History (Last Reviewed 02/25/20 @ 13:50 by Aleyda Barber) Mother CAD (coronary artery disease) Brother CVA (cerebral vascular accident) Sister CAD (coronary artery disease) Sister Diabetes Brother Diabetes Brother CAD (coronary artery disease) History Items: Heart Disease Sibling Family History: Family History (Last Reviewed 02/25/20 @ 13:50 by Aleyda Barber) Mother CAD (coronary artery disease) Brother CVA (cerebral vascular accident) Sister CAD (coronary artery disease) Sister Diabetes Brother Diabetes Brother CAD (coronary artery disease) History Items: Heart Disease Review of Systems Constitutional: Denies: Anorexia, Chills, Fever, Night Sweats, Malaise, Weakness, Weight Change, Fatigue Eyes: Denies: Blurred vision, Conjunctivae Inflammation, Double vision, Drainage, Eyelid Inflammation, Pain, Redness, Vision Change HEENT: Denies: Difficulty Hearing, Difficulty Swallowing, Head Aches, Nasal bleeding, Nasal Congestion, Post Nasal Drip, Sinus Congestion, Sinus Drainage, Sore Throat, Visual Changes Cardiovascular: Reports: Chest Pain, Chest Pressure, Chest Tightness, Heaviness. Denies: Claudication, Edema, Light Headedness, Orthopnea, Palpitations, Paroxysmal Noc. Dyspnea, Syncope Respiratory: Denies: Cough, Hemoptysis, Pleuritic Pain, Shortness of Breath, Shortness of breath at rest, Shortness of breath upon exertion, Sputum production, Wheezing Gastrointestinal: Denies: Abdominal Pain, Constipation, Diarrhea, Dyspepsia, Hematemesis, Hematochezia, Nausea, Melena, Vomiting Genitourinary: Reports: Frequency, Incontinence. Denies: Dysuria, Hematuria, Hesitancy, Nocturia, Retention, Urgency Musculoskeletal: Reports: Arm Pain - L, Joint stiffness. Denies: Joint Pain, Joint swelling, Joint Tenderness, Leg Pain, Muscle pain, Neck Pain, Shoulder Pain Skin: Denies: Dryness, Jaundice, Lesions, Pruritis, Rash, Skin Changes, Wounds Neurological: Denies: Balance problems, Blurred vision, Double vision, Change in Speech, Slurred speech, Confusion, Difficulty swallowing, Focal weakness, Headaches, Incoordination, Numbness, Tingling, Tremor, Seizures Psychiatric: Denies: Anxiety, Depression Endocrine: Denies: Change in Body Habitus, Heat/ Cold Intolerance, Polydipsia, Polyuria Hematologic/ Lymphatic: Denies: Adenopathy, Anemia, Easy Bruising, Easy Bleeding, Petechiae, Purpura VTE Information - Inpt Only VTE Present on Admission: No VTE Mechan Device Prophylaxis: None VTE Pharm Prophylaxis ordered?: Yes Patient Problems: Active and Suspected Problems (Last Reviewed 02/25/20 @ 13:50 by Aleyda Barber) Chest pain (Acute) Hypertensive urgency (Acute) Elevated troponin (Acute) - Physical Exam Vitals/I&O's: Vital Signs Temp Pulse Resp BP Pulse Ox 97.7 F L 59 L 16 174/74 H 96 03/17/20 15:45 03/17/20 15:45 03/17/20 15:45 03/17/20 15:45 03/17/20 15:45 Oxygen Delivery Method Room Air Weight: 76.612 kg Body Mass Index (BMI) 34.1 Finger Stick Blood Glucose 91 General: Alert, Oriented x3, Cooperative, No apparent distress, Well developed, Well nourished, - - older, obese WF lying in bed, appears comfortable HEENT: Atraumatic, PERRLA, EOMI, Normocephalic, EAC Clear Oral: Moist Mucosa, No Gingival or Mucosal Lesions/ Ulcerations Neck: Supple, No JVD, Negative Carotid Bruits, Negative Hepatojugular Reflux, No Nodes, No Nuchal Rigidity, Trachea Midline, Thyroid Normal Size and Texture Lungs: Clear to auscultation, Normal air movement, No rhonchi, No wheeze, No rales Cardiovascular: Regular rate, Regular Rhythm, Normal S1, Normal S2, No murmurs, Gallops - S4, No rub noted Abdomen: Bowel Sounds Present, Soft, Non Tender, Non-Distended, No Hepato-splenomegaly, Obese, No hernias noted Extremities: No clubbing, No cyanosis, No edema, Capillary Refill Less than 3 Seconds, No Calf Tenderness, Peripheral Pulses Normal Skin: No rashes, No breakdown, - - pale Musculoskeletal: No Tenderness to Palpation of Joints or Extremities, No Muscle Wasting, Arthritic Changes Lymphatic: No Cervical, Supraclavicular, or Inguinal Adenopathy Neurological: Cranial nerves II-XII grossly intact, Deep Tendon Reflexes 2+/4 and Symmetrical, Neuro grossly intact, Motor Exam 5/5 strength throughout, Sensory exam intact to light touch and pain, Coordination normal Psych/Mental Status: Normal Affect, Appropriate, Alert and oriented to time, place, person, mood and affect Laboratory Results 03/17/20 12:35: WBC 6.1, RBC 3.77 L, Hgb 11.4 L, Hct 34.2 L, MCV 90.7, MCH 30.2, MCHC 33.3, RDW Std Deviation 42.0, RDW Coeff of Lucía 12.8, Plt Count 316, MPV 10.0, Immature Gran % (Auto) 0.300, Neut % (Auto) 60.8, Lymph % (Auto) 27.9, Blount % (Auto) 8.9, Eos % (Auto) 1.8, Baso % (Auto) 0.3, Absolute Neuts (auto) 3.7, Absolute Lymphs (auto) 1.70, Nucleated RBC % 0 03/17/20 12:35: Sodium 131 L, Potassium 4.2, Chloride 100, Carbon Dioxide 26.0, Anion Gap 5, BUN 17, Creatinine 0.87, Estim Creat Clear Calc 68.80, Est GFR (MDRD) Af Amer 82, Est GFR (MDRD) Non-Af 68, BUN/Creatinine Ratio 19.6, Glucose 102, Calcium 8.9, Troponin I 0.186 H Current Medications Sodium Chloride () 10 - 40 ml IV UD PRN PRN Reason: SALINE FLUSH Assessment/Plan All Active Problems (Last Reviewed 02/25/20 @ 13:50 by Aleyda Barber) Chest pain (Acute) Hypertensive urgency (Acute) Elevated troponin (Acute) Vaginal wall prolapse (Acute) Hyponatremia (Acute) UTI (urinary tract infection) (Acute) Chest Pain -cycle troponin -EKG shows no acute ischemic changes -BP is markedly elevated -will try to get better control of this and continue to assess -prn nitro -cycle cardiac enzymes -consult to Dr. Jauregui HTN Urgency -BP in ED was 208/85 -goal BP for now is 170 systolic -start Coreg 6.25 BID (pt takes labetalol 300 mg BID at home) -continue Hydralazine but increase from 25 mg TID to 50 mg TID -continue Losartan 50 mg BID -hold Lasix (hyponatremia) and prn clonidine -use prn hydralazine 10 mg q 4 hrs for SBP > 170 -home meds reviewed and I think we can come up with a better regimen so that she is not taking meds PRN all the time -pt has had issues with orthostasis and syncope in the past -TSH in am Hyponatremia -hold lasix for now -131 on admission -looks like this is acute on chronic -trend H/O Stroke -statin allergy -continue ASA -BP control -no sig residual deficits GERD -continue PPI Vaginal Wall Prolapse -chronic Mild Chronic Anemia -counts stable Obesity -recommend wgt loss DVT Prophylaxis -Lovenox Code Status -Full Inpatient E&M: 27234 Init Hosp L3
--- NOTE | 2020-03-17 15:57 | EKG12_ITS ---
Test Reason : AM Blood Pressure : / mmHG Vent. Rate : 064 BPM Atrial Rate : 064 BPM P-R Int : 178 ms QRS Dur : 086 ms QT Int : 430 ms P-R-T Axes : 028 -18 075 degrees QTc Int : 443 ms Normal sinus rhythm Normal ECG Confirmed by ORION SILVER, YODIT ([id number]), news assignment editor JESSICA ANGUIANO ([id number]) on 03/19/2020 1:13:15 PM Referred By: LATOYA Confirmed By:YODIT SEARS MD
--- NOTE | 2020-03-17 20:14 | PCM.CONS.C ---
Problem List (1) Chest pain Status: Acute (2) Hypertensive urgency Status: Acute (3) Abnormal cardiac enzyme level Status: Acute (4) HLD (hyperlipidemia) Status: Chronic Qualifiers: Hyperlipidemia type: unspecified Qualified Code(s): E78.5 - Hyperlipidemia, unspecified (5) PAD (peripheral artery disease) Status: Acute (6) Hyponatremia Status: Acute Reason for Consult Date of Consultation: 03/17/20 History of Present Illness: The patient is a 74 year old white female with a past medical history of hypertension, hyperlipidemia, superimposed upon an element of peripheral vascular disease, who presents for evaluation of chest discomfort, findings of a hypertensive urgency, and abnormal cardiac enzymes/troponin I levels. The patient states that this past Monday she felt discomfort in her upper extremities and her left shoulder area. She checked her blood pressure and states her blood pressure cuff could not register her blood pressure. Thus she believed her blood pressure was elevated and proceeded to take her PRN Catapres/clonidine therapy. She notes that did not appear to improve any of her findings. She then went on to take additional antihypertensive therapy with hydralazine. Eventually she states she was able to feel better. Today she was shopping and noted while pushing the shopping cart discomfort in her left chest and left upper extremity area. She states she ended up pulling the shopping cart with her right upper extremity. She eventually went home and rested and felt somewhat better. She was then preparing food and had recurrent symptoms in her left chest/left upper extremity area. She presented to the emergency department. She was found to be markedly hypertensive with a systolic blood pressure greater than 200 mmHg. She had an indeterminate troponin I level. Her ECG demonstrated sinus rhythm. She was treated with additional antihypertensive therapy and placed in the PCU for further evaluation and care. At the moment she states she feels she is resting comfortably after her blood pressure has improved. She no longer has ongoing discomfort. She states with her discomfort she had no ongoing shortness of breath or dyspnea and there was no nausea, emesis, or diaphoresis. She has not had any episodes of loss of consciousness. Her repeat troponin I level did increase. Her ECG demonstrated sinus rhythm with nonspecific ST segment changes. Based upon her clinical course she has been referred for further evaluation with diagnostic cardiac catheterization. Of note the patient has undergone evaluation this year with noninvasive studies including a transthoracic echocardiogram and an exercise tolerance test/imaging study. The results are as noted below. He is also undergone previous noninvasive studies of her thoracic and abdominal vasculature with ultrasound and CT scans. The results are as noted below. [] Past Medical History Allergies/Adverse Reactions: Allergies [id number]-Wmn Reductase Inhibitor Adverse Reaction (Verified 03/17/20 12:25) leg muscle weakness Home Medications: Ambulatory Orders Medication Instructions Recorded aspirin 81 mg tablet,delayed 81 mg PO DAILY #1 tab 10/31/19 release clonidine HCl 0.1 mg tablet 0.1 mg PO BID PRN 10/31/19 furosemide 20 mg tablet 20 mg PO DAILY PRN PRN 10/31/19 labetalol 300 mg tablet 300 mg PO BID 10/31/19 hydralazine 25 mg tablet 25 mg PO TID 01/31/20 losartan 100 mg tablet 50 mg PO BID tab 01/31/20 estradiol See Rx Instructions VAGINAL 02/25/20 .COMPLEX #42.5 g Omeprazole 40 mg PO DAILY 03/17/20 Past Medical History (Chronic Problems): Chronic Problems (Last Reviewed 03/17/20 @ 16:[address] 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 history - *Family History Maternal Family History: Family History (Last Reviewed 02/25/20 @ 13:50 by Aleyda Barber) Mother CAD (coronary artery disease) Brother CVA (cerebral vascular accident) Sister CAD (coronary artery disease) Sister Diabetes Brother Diabetes Brother CAD (coronary artery disease) History Items: Heart Disease Sibling Family History: Family History (Last Reviewed 02/25/20 @ 13:50 by Aleyda Barber) Mother CAD (coronary artery disease) Brother CVA (cerebral vascular accident) Sister CAD (coronary artery disease) Sister Diabetes Brother Diabetes Brother CAD (coronary artery disease) History Items: Heart Disease Lives: Alone Smoking Status: Never smoker Tobacco Use: Non-smoker Alcohol: None Drugs: None Review of Systems - Review of Systems General: Denies: Fever, Night Sweats, Fatigue Cardiovascular: Reports: Chest Discomfort, Chest Discomfort at Rest, Chest Discomfort with Exertion. Denies: Shortness of Breath, Orthopnea, PND, Peripheral Edema, Palpitations, Lightheadedness, Dizziness, Near Syncope, Syncope Respiratory: Denies: Cough, Sputum Production, Hemoptysis Gastrointestinal: Denies: Hematemesis, Hematochezia, Melena Genitourinary: Denies: Dysuria, Hematuria Skin: Denies: Rash Subjectve: This is a pleasant 74-year-old white female who appears to be resting comfortably at the moment in no acute distress. Objective: Vital Signs Temp Pulse Resp BP Pulse Ox 98.4 F 63 15 92/61 98 03/17/20 17:19 03/17/20 19:22 03/17/20 17:19 03/17/20 17:19 03/17/20 19:15 Oxygen Flow Rate (L/min) 2 Oxygen Delivery Method Nasal Cannula Weight: 168 lb 14.4 oz Body Mass Index (BMI) 34.1 Finger Stick Blood Glucose 91 Intake and Output for Last 24 Hours 03/15/20 03/16/20 03/17/20 23:59 23:59 23:59 Intake Total 300 / 300 Balance 300 / 300 General: Awake, Alert, Oriented x 3, Cooperative, No Acute Distress HEENT: Atraumatic, Normocephalic, PERRL, EOMI, Sclera Non Icteric Neck: Supple, Good ROM, No JVD Lungs: Clear to auscultation Cardiovascular: Regular Rhythm, Normal S1, Normal S2, Positive S4 Murmur Murmur: Grade 2/6, Harsh, Mid Systolic, LLSB, LVOT Vascular: No Carotid Bruits Abdomen: Bowel Sounds Present, Soft Extremities: No edema Neurological: No Focal Motor or Sensory Deficit Psych/Mental Status: Appropriate 03/17/20 12:35: WBC 6.1, RBC 3.77 L, Hgb 11.4 L, Hct 34.2 L, MCV 90.7, MCH 30.2, MCHC 33.3, Plt Count 316, MPV 10.0, Immature Gran % (Auto) 0.300, Neut % (Auto) 60.8, Lymph % (Auto) 27.9, [place] % (Auto) 8.9, Eos % (Auto) 1.8, Baso % (Auto) 0.3, Absolute Neuts (auto) 3.7, Nucleated RBC % 0 03/17/20 12:35: Sodium 131 L, Potassium 4.2, Chloride 100, Carbon Dioxide 26.0, Anion Gap 5, BUN 17, Creatinine 0.87, Est GFR (MDRD) Af Amer 82, Est GFR (MDRD) Non-Af 68, BUN/Creatinine Ratio 19.6, Glucose 102, Calcium 8.9, Troponin I 0.186 H 03/17/20 15:52: Troponin I 0.244 H 03/17/20 18:24: Troponin I 0.255 H Rhythm: Sinus rhythm EKG: Sinus rhythm; nonspecific ST segment abnormality ECHO: 11-21-2019 Interpretation Summary Left ventricular systolic function is normal. The estimated ejection fraction is 65 %. The left atrium is moderately enlarged. The right atrium is mildly enlarged. There is mild mitral annular calcification. Extension of the mitral annular calcification onto the base of the posterior mitral valve leaflet. Mild (1+) mitral valve insufficiency. Mild tricuspid valve insufficiency. Mild diffuse aortic valve thickening. Trivial aortic valve insufficiency. Right ventricular systolic pressure estimated to be 42 mmHg. Transmitral diastolic flow velocities suggest diastolic dysfunction (pseudonormal pattern). Stress Test: Stress Test Report Date: 11-21-2019 Procedure: Pharmacologic stress nuclear imaging study Indications: Pain; dyspnea on exertion: Peripheral arterial occlusive disease Consent: Per the patient Procedure: The patient underwent pharmacologic (Regadenoson) evaluation with a peak heart rate of 94 beats per minute (64 %predicted maximal heart rate) and a peak blood pressure of 174/80 mmHg. The baseline ECG demonstrated normal sinus rhythm: poor R wave progression. The peak pharmacologic ECG demonstrated no obvious ECG changes. There were no cardiac dysrhythmias pretest, during pharmacologic infusion, or recovery. Patient noted chest discomfort during recovery with spontaneous resolution to baseline. The examination was discontinued secondary to completion of protocol. Impression: 1. Pharmacologic (Regadenoson) evaluation 2. Peak pharmacologic ECG with no obvious ECG changes. 3. There were no cardiac dysrhythmias pretest, during pharmacologic infusion, or recovery. 4. Nuclear images pending Myocardial perfusion imaging study: Technique: The patient was injected with 12.0 millicuries of technetium 99m Cardiolite and subsequently rest SPECT Cardiolite nuclear imaging was obtained in the horizontal long, vertical long, and short axis views. The patient underwent pharmacologic (Regadenoson) evaluation with a peak heart rate of 94 beats per minute (64 % percent predicted maximal heart rate) and a peak blood pressure of 174/80 mmHg. The patient was injected with a 36.0 millicuries of technetium 99m Cardiolite and subsequently stress SPECT Cardiolite nuclear imaging was obtained in the horizontal long, vertical long, and short axis views. A gated Cardiolite study at peak stress was obtained. Interpretation: Rest and stress SPECT Cardiolite nuclear imaging status post realignment, normalization, and attenuation correction demonstrate relative uniform tracer uptake and myocardial perfusion appearing within normal limits. There is end systolic thickening and brightening. The gated Cardiolite study demonstrates myocardial thickening and inward wall motion. The reported LVEF is 71 %. Impression: 1. Rest and stress SPECT Cardiolite nuclear imaging demonstrate relative uniform tracer uptake and myocardial perfusion appearing within normal limits. 2. The gated Cardiolite study reports an LVEF of 71 %. Renal artery duplex study: 01-05-2018 Per the report: No suggestive of hemodynamically significant renal artery stenosis on the right and findings compatible with mild renal artery stenosis on the left: Please see official report CXR: Preliminary evaluation: No acute cardiopulmonary disease process appreciated; please see official report Chest CT Scan: 10-29-2015 FINDINGS: Normal enhancement of the main pulmonary artery and right and left pulmonary arteries. Normal enhancement of the bilateral peripheral pulmonary arteries. There is no demonstrated pulmonary embolism. There are calcified plaques of the thoracic aorta. There is no demonstrated aortic dissection. Cardiomegaly is present. Normal mediastinum. Normal hilar regions. Normal visualized trachea and bronchi. The lungs are well expanded. There is a 5 mm nodule of the right lower lobe. There is atelectasis of the medial left lower lobe. There is mild right basilar pleural reaction. Normal chest wall structures. There are degenerative changes of thoracic spine. There is a large hiatal hernia. Multiple punctate calcified hepatic granulomas are present. IMPRESSION: There is no evidence of pulmonary embolism. Large hiatal hernia. Calcified granulomas of the liver. 5 mm nodule of the right lower lobe. Medial left lower lobe atelectasis. Cardiomegaly. Calcified plaques of the thoracic aorta. Mild right basilar pleural reaction. Abdominal/pelvic CT scan: 01-01-2018 IMPRESSION: Relatively similar-appearing moderate atherosclerosis of the bilateral renal arteries. 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 Recommend vascular consult. 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 Status post hysterectomy. Moderate constipation. Advanced degenerative change thoracolumbar spine including a broad disc protrusion L4-L5 with severe neural foramina narrowing of central stenosis. Enlarging hiatal hernia. Enlarging left renal cyst with otherwise benign features. Assessment/Plan 1. Chest pain The patient presented with chest discomfort. The etiology is unclear although there are concerns of the possibility of CAD with myocardial ischemia and angina pectoris as well as concerns of potentially being related to her hypertensive urgency with systolic blood pressures in excess of 200 mmHg. She is being followed for any other obvious noncardiovascular related concerns. At the present time she will continue to be monitored. Her cardiac enzymes will be followed as her ECG will be followed. Based upon her presentation findings thus far she has been referred for consideration for diagnostic cardiac catheterization. This does not appear to be an unreasonable approach at this time. The procedure and risks have been discussed with her and she was agreeable to this approach. 2. Hypertensive urgency The patient presented with marked hypertension. There is concerned that she may have been experiencing this recently, this past Monday, as well as today. It is unclear whether this is a primary event leading to her symptoms and her cardiac enzyme findings versus being secondary to concerns of ongoing myocardial ischemia and angina pectoris, etc. At the present time she is being followed. Her medicines are being adjusted. Her blood pressure has improved. She does feel better. 3. Abnormal cardiac enzymes She does have abnormal cardiac enzymes. Again there is concern as to whether this represents underlying CAD with myocardial ischemia and a non-ST segment elevation IA event versus being secondary to her hypertension and a potential type II non-ST segment elevation IA event. At the moment she is going to be followed with enzymes and ECG. She continues medical management. She has been recommended for further evaluation with diagnostic cardiac catheterization. Again the procedure and risks have been discussed with her and she is agreeable to this approach. 4. Hyperlipidemia She will continue lipid-lowering therapy as deemed appropriate. 5. PAD She has been found based upon her previous noninvasive studies to have elements of PAD in her abdominal vasculature and her renal arteries. This does put her at increased risk for having underlying CAD as well. She will need continued peripheral evaluation as deemed appropriate. However, depending upon her clinical course and her blood pressure, her renal artery status may need to be reassessed to assist for additional diagnostic studies and the need for any form of intervention on her renal arteries. 6. Hyponatremia Her sodium was somewhat low. This will be followed during her hospitalization as her medications, etc., are adjusted. Comment: The patient's case has been discussed and reviewed with the patient and the [facility] emergency department staff. This note was generated using a voice recognition system and there may be incorrect words, spelling or punctuation that were not noted when reviewing the office note prior to saving. Procedure Criteria Procedure Type: Elective COVID Risk Discussion: The surgeon/proceduralist and patient have discussed in detail the risk of exposure to and/or potential harm posed by the COVID-19 virus with having a surgery/procedure at this time versus the risk of delaying the surgery/procedure. It is not possible to know either the risk of delaying the surgery or procedure or chance of getting an infection with perfect accuracy, but a joint decision was made between the patient and the surgeon/proceduralist to proceed at this time with the scheduled surgery/procedure as indicated on the consent form.
[2020-03-17] MEDS: Losartan Potassium 50 MG Tablet PO (20:50)
[2020-03-17] MEDS: hydrALAZINE 50 MG Tablet PO (20:50)
[2020-03-17] MEDS: Carvedilol 6.25 MG Tablet PO (20:50)
[2020-03-17] MEDS: MELATONIN 3 MG TABLET PO (22:39)
[2020-03-18] VITALS (24 sets, daily range): BP systolic 136–207; BP diastolic 57–91; PULSE 58–94; RESP 12–21; TEMP 36.5–37; O2SAT 93–100
--- NOTE | 2020-03-18 05:55 | EKG12_ITS ---
Test Reason : CP ADMISSION Blood Pressure : / mmHG Vent. Rate : 058 BPM Atrial Rate : 058 BPM P-R Int : 186 ms QRS Dur : 084 ms QT Int : 452 ms P-R-T Axes : 035 -23 064 degrees QTc Int : 443 ms Sinus bradycardia Nonspecific ST abnormality Abnormal ECG Confirmed by ORION SILVER, YODIT ([id number]), electronic news gathering editor JESSICA ANGUIANO ([id number]) on 03/19/2020 1:13:46 PM Referred By: RISHABH Confirmed By:YODIT SEARS MD
[2020-03-18 06:08] LABS: Absolute Lymphocyte Count 1.47 X10^3/uL (0.83-4.51); Absolute Neutrophil Count 2.6 X10^3/uL (2.0-7.7); Basophil# 0.03 X10^3/uL; Basophil% 0.7 % (0-1); Eosinophil# 0.09 X10^3/uL; Hematocrit 31.6 % (37-47); Hemoglobin 10.4 g/dL (12.0-15.0); Lymphocyte # 1.47 X10^3/ul (4.0); Lymphocyte % 31.9 % (19-41); Mean Corp Hgb Conc 32.9 g/dL (32-36); Mean Corpuscular Hgb 29.5 pg (27.0-32.0); Mean Corpuscular Volume 89.8 fL (81-99); Mean Platelet Vol. 9.9 fl (6.2-12.0); Monocyte# 0.41 X10^3/uL; Monocyte% 8.9 % (0-10); NRBC Flagged by Analyzer 0 % (0-5); Neutrophil % 56.3 % (47-70); Platelet Count 301 K/mm3 (150-450); RBC Distribution Width CV 12.8 % (11.6-14.6); RBC Distribution Width SD 42.3 fl (35.1-43.9); Red Blood Count 3.52 M/mm3 (4.2-5.4); White Blood Count 4.6 K/mm3 (4.4-11.0)
[2020-03-18 06:45] LABS: ALB/GLOB Ratio 0.9 RATIO (0.9-2.4); AST(SGOT) 20 U/L (15-37); Alanine Aminotransfer ALT/SGPT 19 U/L (13-56); Albumin, Serum 3.2 g/dL (3.2-5.0); Alkaline Phosphatase 76 U/L (45-117); Anion Gap 7 (5-15); BUN 18 mg/dL (7-18); BUN/Creat Ratio 25.8 RATIO (10-20); Calcium,Total 8.7 mg/dL (8.5-10.1); Chloride 99 mmol/L (98-107); EST Glomerular Filtration Rate 87 mL/min (>60); Est Glom Filt Rate - Afr Amer 105 mL/min (>60); Estimated Creatinine Clearance 60.47 ml/min; Globulin 3.5 g/dL (2.2-4.2); Glucose 99 mg/dL (74-106); Magnesium 2.2 mg/dL (1.6-2.6); Potassium 3.9 mmol/L (3.5-5.1); Protein, Total 6.7 g/dL (6.4-8.2); Sodium Level 133 mmol/L (136-145); Thyroid Stim Hormone (TSH) 2.24 uIU/mL (0.358-3.74)
[2020-03-18] MEDS: Aspirin E.C. 81 MG Tablet PO (06:45)
[2020-03-18] MEDS: Losartan Potassium 50 MG Tablet PO ×2 (06:45→21:19)
[2020-03-18] MEDS: Carvedilol 6.25 MG Tablet PO (06:45)
[2020-03-18] MEDS: hydrALAZINE 50 MG Tablet PO ×3 (06:45→21:18)
--- NOTE | 2020-03-18 06:49 | NURSING ---
AM meds given early for scheduled heart cath on 03/18 at 0830 YESSY Ham
[2020-03-18] MEDS: Acetaminophen 325 MG Tablet 650 MG PO ×2 (07:37→14:07)
[2020-03-18] MEDS: TICAGRELOR 90 MG TABLET 180 MG PO (07:39)
[2020-03-18] MEDS: 0.9% Saline Lock 10 ML Syringe IV ×2 (07:45→12:09)
--- NOTE | 2020-03-18 08:44 | PN.CARD_ITS ---
Subjectve: The patient remains awake and alert. She denies any ongoing chest discomfort related symptoms at this time. Objective: Vital Signs Temp Pulse Resp BP Pulse Ox 97.7 F L 63 18 192/86 H 95 03/18/20 08:05 03/18/20 08:05 03/18/20 08:05 03/18/20 08:05 03/18/20 08:05 Oxygen Flow Rate (L/min) 2 Oxygen Delivery Method Room Air Weight: 173 lb 11.588 oz Body Mass Index (BMI) 34.1 Finger Stick Blood Glucose 91 Intake and Output for Last 24 Hours 03/16/20 03/17/20 03/18/20 23:59 23:59 23:59 Intake Total 780 / 780 0 / 0 Balance 780 / 780 0 / 0 General: Awake, Alert, Oriented x 3, Cooperative, No Acute Distress HEENT: Atraumatic, Normocephalic, PERRL, EOMI, Sclera Non Icteric Neck: Supple, Good ROM, No JVD Lungs: Clear to auscultation Cardiovascular: Regular Rhythm, Normal S1, Normal S2 Murmur Murmur: Grade 2/6, Harsh, Mid Systolic, LLSB, LVOT Abdomen: Bowel Sounds Present, Soft Extremities: No edema Neurological: No Focal Motor or Sensory Deficit Psych/Mental Status: Appropriate 03/17/20 12:35: WBC 6.1, RBC 3.77 L, Hgb 11.4 L, Hct 34.2 L, MCV 90.7, MCH 30.2, MCHC 33.3, Plt Count 316, MPV 10.0, Immature Gran % (Auto) 0.300, Neut % (Auto) 60.8, Lymph % (Auto) 27.9, [place] % (Auto) 8.9, Eos % (Auto) 1.8, Baso % (Auto) 0.3, Absolute Neuts (auto) 3.7, Nucleated RBC % 0 03/17/20 12:35: Sodium 131 L, Potassium 4.2, Chloride 100, Carbon Dioxide 26.0, Anion Gap 5, BUN 17, Creatinine 0.87, Est GFR (MDRD) Af Amer 82, Est GFR (MDRD) Non-Af 68, BUN/Creatinine Ratio 19.6, Glucose 102, Calcium 8.9, Troponin I 0.186 H 03/17/20 15:52: Troponin I 0.244 H 03/17/20 18:24: Troponin I 0.255 H 03/18/20 05:46: WBC 4.6, RBC 3.52 L, Hgb 10.4 L, Hct 31.6 L, MCV 89.8, MCH 29.5, MCHC 32.9, Plt Count 301, MPV 9.9, Immature Gran % (Auto) 0.200, Neut % (Auto) 56.3, Lymph % (Auto) 31.9, [place] % (Auto) 8.9, Eos % (Auto) 2.0, Baso % (Auto) 0.7, Absolute Neuts (auto) 2.6, Nucleated RBC % 0 03/18/20 05:46: Sodium 133 L, Potassium 3.9, Chloride 99, Carbon Dioxide 27.0, Anion Gap 7, BUN 18, Creatinine 0.70, Est GFR (MDRD) Af Amer 105, Est GFR (MDRD) Non-Af 87, BUN/Creatinine Ratio 25.8 H, Glucose 99, Calcium 8.7, Magnesium 2.2, Total Bilirubin 0.40 Rhythm: Sinus rhythm EKG: Sinus rhythm; no acute ECG changes Medical Necessity - Tobacco Use Smoking Status: Never smoker Tobacco Use: Non-smoker Assessment/Plan 1. Chest pain The patient presented with chest discomfort. The etiology is unclear although there are concerns of the possibility of CAD with myocardial ischemia and angina pectoris as well as concerns of potentially being related to her hypertensive urgency with systolic blood pressures in excess of 200 mmHg. She is being followed for any other obvious noncardiovascular related concerns. At the present time she will continue to be monitored. Her cardiac enzymes/troponin I levels have remained indeterminate. Her ECG is demonstrated no new acute ECG changes. Based upon her presentation findings thus far she has been referred for consideration for diagnostic cardiac catheterization. This does not appear to be an unreasonable approach at this time. The procedure and risks have been discussed with her and she was agreeable to this approach. 2. Hypertensive urgency The patient presented with marked hypertension. There is concerned that she may have been experiencing this recently, this past Monday, as well as today. It is unclear whether this is a primary event leading to her symptoms and her cardiac enzyme findings versus being secondary to concerns of ongoing myocardial ischemia and angina pectoris, etc. At the present time she is being followed. Her medicines are being adjusted. Her blood pressure has improved compared to her blood pressure on arrival, however, they have not yet normalized. She states based upon her history she does not necessarily expect him to normalize. 3. Abnormal cardiac enzymes She does have abnormal cardiac enzymes. Again there is concern as to whether this represents underlying CAD with myocardial ischemia and a non-ST segment elevation AK event versus being secondary to her hypertension and a potential type II non-ST segment elevation AK event. At the moment she is going to be followed with enzymes and ECG. She continues medical management. She has been recommended for further evaluation with diagnostic cardiac catheterization. Again the procedure and risks have been discussed with her and she is agreeable to this approach. 4. Hyperlipidemia She will continue lipid-lowering therapy as deemed appropriate. 5. PAD She has been found based upon her previous noninvasive studies to have elements of PAD in her abdominal vasculature and her renal arteries. This does put her at increased risk for having underlying CAD as well. She will need continued peripheral evaluation as deemed appropriate. However, depending upon her clinical course and her blood pressure, her renal artery status may need to be reassessed to assist for additional diagnostic studies and the need for any form of intervention on her renal arteries. 6. Hyponatremia Her sodium was somewhat low. This will be followed during her hospitalization as her medications, etc., are adjusted. This note was generated using a voice recognition system and there may be incorrect words, spelling or punctuation that were not noted when reviewing the office note prior to saving.
--- NOTE | 2020-03-18 09:14 | CASEMGMT ---
According to the [facility], the following are in-network tertiary facilities: [facility], [place], [facility], [facility], [facility], and . Mae KRISHNAMURTHY CM
--- NOTE | 2020-03-18 10:26 | CL.I_ITS ---
Patient Name: SANJIV PEOPLES Study Date: 03/18/2020 Performing: Mariam Gonzalez MD Ht: 59.06 inches 150 cm : 1945 Wt: 174.17 lbs 79 kg Age: 74 Gender: female BSA: 1.74 PROCEDURE(S) PERFORMED [id number] W OR WO PTCA, SINGLE CORONARY ARTERY CLINICAL PROFILE AND CO-MORBIDITIES Indications: Suspected CAD Heart Failure: None Stress/Imaging Date: 11/21/2019 Stress Test with SPECT MPI: Negative Angina Classification Anginal Classification w/in 2 Weeks: CCS III CAD Presentations: Non-STEMI. CONCLUSIONS Successful PTCA/ARIADNA proximal and mid OM1 RECOMMENDATIONS LOVE Smalls for at least 12 months Follow up with Dr. Juventino morillo return for PCI of LAD in 3-4 weeks DESCRIPTION OF PROCEDURE The patient arrived to the procedure lab. The risks and benefits of the procedure as well as a full d escription of our services here and current unavailability of surgical backup were fully explained to the patient and/or their significant other prior to the catheterization. The Timeout was completed, verifying the correct patient and procedure. The patient's procedural site was prepped and draped in the usual fashion. Local anesthetic was given subcutaneously to right radial region with Lidocaine 2% Using a modified Seldinger technique,arterial access was obtained via the right radial artery, a 6Fr sheath was inserted. Left Coronary Artery selective angiography was performed in multiple views usin g a 5 Fr. 4.0 Malcolm catheter. Right Coronary Artery selective angiography was then performed in multi ple views using a 5 Fr. 4.0 Malcolm catheter. Left Ventriculography was performed in [place] projection usi ng a 5 Fr. Pigtail catheter. LV to AO pullback pressures were then recorded.The images were reviewed and options discussed. A decision was then made to proceed with an Intervention, IVUS o r other adjunct procedure. XB 3.0 Guide catheter was inserted and engaged into the LCA. BMW Guide wire was advanced to the C ircumflex. 2.5 x 12 [id number] Balloon catheter was advanced across lesion in the first obtuse marginal, mid. PTCA balloon inflated at 8 atms for 14 secs. PTCA balloon inflated at 8 atms for 9 secs. PTCA b alloon inflated at 10 atms for 13 secs. 2.5 x 12 Synergy Drug Eluting stent was advanced across the l esion in the first obtuse marginal, mid. Angiogram performed post stent deployment. 3.0 x 12 Synergy Drug Eluting stent was advanced across the lesion in the first obtuse marginal, prox. 3.25 x 8 NC Anabel rge Balloon catheter was advanced across lesion in the first obtuse marginal, proximal. PTCA balloon inflated at 12 atms for 10 secs. PTCA balloon inflated at 12 atms for 8 secs. Angiogram performed pos t stent deployment. The arterial sheath was pulled and a TR Band was applied for hemostasis INTERVENTION INFORMATION LESION SITE: 1st OM (Mid) Lesion Complexity: High/C, chronic total occlusion: No, lesion at bifurcation: Yes, thrombus present: No, lesion length: 10 mm, culprit lesion: Yes, Previously treated lesion: No Pre Stenosis: 95 % Pre intervention BRADEN flow: 3 PROCEDURE: Drug Eluting Stent with pre dilatation. Post Stenosis: 0 % Post intervention BRADEN flow: 3 Lesion Devices: Cardinal 6 Fr XB3.0 100cm Guide Catheter Dang .014 BMW Whigham Straight 190cm Josh Sci EMERGE MR 2.50x12 BALLOON Josh Sci Synergy MR ARIADNA 2.50x12 LESION SITE: 1st OM (Proximal) Lesion Complexity: High/C, chronic total occlusion: No, lesion at bifurcation: Yes, thrombus present: No, lesion length: 12 mm, culprit lesion: Yes, Previously treated lesion: No Pre Stenosis: 95 % Pre intervention BRADEN flow: 3 PROCEDURE: Drug Eluting Stent with pre and post dilatation Post Stenosis: 0 % Post intervention BRADEN flow: 3 Lesion Devices: Cardinal 6 Fr XB3.0 100cm Guide Catheter Dang .014 BMW Whigham Straight 190cm Josh Sci EMERGE MR 2.50x12 BALLOON Josh Sci Synergy MR ARIADNA 3.00x12 Josh Sci NC EMERGE MR 3.25x08 BALLOON COMPLICATIONS No Complications PROCEDURE MEDICATIONS Fentanyl 50 mcg IV Versed 1 mg IV Fentanyl 25 mcg IV Oxygen: 2 L/min via nasal cannula Heparin diluted in 23cc Heparinized saline. Patient given 10cc IA of this solution. 03/18/2020 09:10: 43 Heparin 5000 unit(s) IV 03/18/2020 09:34:05 Verapamil 2.5mg, Ntg 100mcgs, 2000 units of Heparin diluted in 23cc Heparinized saline. Patient give n 10cc IA of this solution. 03/18/2020 09:10:43 SUMMARY OF HEMODYNAMIC DATA Time AIR REST ECG 09:06:21 AO 104/52 (71) SA 09:11:21 LV 186/1, 23 09:17:32 LV 189/0, 23 09:17:38 LV 175/-2, 29 09:18:30 LVp 187/1, 22 09:18:35 AOp 180/69 (114) 09:18:40 AO 188/72 (117) 09:18:47 Signed By Mariam Gonzalez MD On 03/18/2020 10:25:27 Mariam Gonzalez MD
--- NOTE | 2020-03-18 10:30 | EKG12_ITS ---
Test Reason : CP Blood Pressure : / mmHG Vent. Rate : 069 BPM Atrial Rate : 069 BPM P-R Int : 176 ms QRS Dur : 086 ms QT Int : 418 ms P-R-T Axes : 017 -23 070 degrees QTc Int : 447 ms Normal sinus rhythm Normal ECG Confirmed by FRANCISCO JAVIER SILVER, BRE ([id number]), story editor JESSICA ANGUIANO ([id number]) on 03/23/2020 1:15:08 PM Referred By: Confirmed By:RAVINDRA MCINTYRE MD
[2020-03-18] MEDS: 0.9% Normal Saline 1,000 ML 100 ML IV (10:46)
[2020-03-18] MEDS: Pantoprazole Sodium 40 MG Tablet PO (11:49)
[2020-03-18] MEDS: hydrALAZINE 20 MG/ML Vial 10 MG IV (12:10)
--- NOTE | 2020-03-18 13:55 | PCM.PROGNOTE ---
<Patience Coreas POWER MACHINE OPERATOR - Last Filed: 03/18/20 14:02> Patient Problems: Active and Suspected Problems (Last Reviewed 03/17/20 @ 16:[address] Elisa Joshua DO) Chest pain (Acute) Hypertensive urgency (Acute) Elevated troponin (Acute) Abnormal cardiac enzyme level (Acute) PAD (peripheral artery disease) (Acute) Subjective: Patient seen and examined. Denies further chest pain. Underwent cardiac catheterization with PTCA/ARIADNA to proximal and mid OM1. Blood pressure significantly improved. Denies other symptoms or complaints. - Physical Exam Vitals/I&O's: Vital Signs Temp Pulse Resp BP Pulse Ox 97.7 F L 62 16 141/61 H 100 03/18/20 12:34 03/18/20 12:34 03/18/20 12:34 03/18/20 12:34 03/18/20 12:34 Oxygen Flow Rate (L/min) 2 Oxygen Delivery Method Nasal Cannula Weight: 173 lb 11.588 oz Body Mass Index (BMI) 34.1 Finger Stick Blood Glucose 91 Intake and Output for Last 24 Hours 03/16/20 03/17/20 03/18/20 23:59 23:59 23:59 Intake Total 780 / 780 100 / 100 Balance 780 / 780 100 / 100 General: Alert, Oriented x3, Cooperative HEENT: Atraumatic, PERRLA, EOMI, Normocephalic Neck: Supple, No JVD, Negative Carotid Bruits Lungs: Clear to auscultation, Normal air movement Cardiovascular: Regular rate, No murmurs Abdomen: Bowel Sounds Present, Soft, Non Tender, Non-Distended Extremities: No clubbing, No cyanosis, No edema, Capillary Refill Less than 3 Seconds Skin: No rashes, No breakdown Musculoskeletal: No Tenderness to Palpation of Joints or Extremities Neurological: Cranial nerves II-XII grossly intact, Neuro grossly intact Psych/Mental Status: Normal Affect, Appropriate Laboratory Results 03/17/20 15:52: Troponin I 0.244 H 03/17/20 18:24: Troponin I 0.255 H 03/18/20 05:46: WBC 4.6, RBC 3.52 L, Hgb 10.4 L, Hct 31.6 L, MCV 89.8, MCH 29.5, MCHC 32.9, RDW Std Deviation 42.3, RDW Coeff of Lucía 12.8, Plt Count 301, MPV 9.9, Immature Gran % (Auto) 0.200, Neut % (Auto) 56.3, Lymph % (Auto) 31.9, [place] % (Auto) 8.9, Eos % (Auto) 2.0, Baso % (Auto) 0.7, Absolute Neuts (auto) 2.6, Absolute Lymphs (auto) 1.47, Nucleated RBC % 0 03/18/20 05:46: Sodium 133 L, Potassium 3.9, Chloride 99, Carbon Dioxide 27.0, Anion Gap 7, BUN 18, Creatinine 0.70, Estim Creat Clear Calc 60.47, Est GFR (MDRD) Af Amer 105, Est GFR (MDRD) Non-Af 87, BUN/Creatinine Ratio 25.8 H, Glucose 99, Calcium 8.7, Magnesium 2.2, Total Bilirubin 0.40, AST 20, ALT 19, Alkaline Phosphatase 76, Total Protein 6.7, Albumin 3.2, Globulin 3.5, Albumin/Globulin Ratio 0.9, TSH 2.24 Current Medications Acetaminophen (Tylenol) 650 mg PO Q6H PRN PRN PRN Reason: Pain Score 1-10/Temp > 100.7 F Last Admin: 03/18/20 07:37 Dose: 650 mg Documented by: Albuterol Sulfate (Ventolin Aerosols) 2.5 mg INHALATION Q2H PRN PRN PRN Reason: SOB/Wheezing Aspirin (Ecotrin) 81 mg PO DAILY@0800 [facility] Last Admin: 03/18/20 06:45 Dose: 81 mg Documented by: Atropine Sulfate () 0.5 mg IV UD PRN PRN Reason: HR <50 bpm Carvedilol (Coreg) 6.25 mg PO BID [facility] Last Admin: 03/18/20 06:45 Dose: 6.25 mg Documented by: Docusate Sodium (Colace) 100 mg PO BID PRN PRN PRN Reason: Constipation Enoxaparin Sodium (Lovenox) 40 mg SC DAILY [facility] Last Admin: 03/18/20 12:13 Dose: Not Given Documented by: Heparin Sodium (Beef Lung) (Heparin 500 Unit/5 Ml (100/Ml)) 500 unit IV UD PRN PRN Reason: HEPARIN FLUSH Hydralazine HCl (Apresoline) 50 mg PO TID [facility] Last Admin: 03/18/20 06:45 Dose: 50 mg Documented by: Hydralazine HCl (Apresoline Iv) 10 mg IV Q4H PRN PRN PRN Reason: SBP> 170 Last Admin: 03/18/20 12:10 Dose: 10 mg Documented by: Sodium Chloride () 1,000 mls @ 0 mls/hr IV .Q0M [facility] Sodium Chloride () 1,000 mls @ 100 mls/hr IV .Q10H [facility] Stop: 03/18/20 16:19 Last Admin: 03/18/20 10:46 Dose: 100 mls/hr Documented by: Labetalol HCl (Trandate) 5 mg IV X1 PRN PRN Reason: SBP > 160 when pulling sheath Stop: 03/20/20 10:17 Losartan Potassium (Cozaar) 50 mg PO BID [facility] Last Admin: 03/18/20 06:45 Dose: 50 mg Documented by: Melatonin (Melatonin) 3 mg PO QHS PRN PRN PRN Reason: INSOMNIA Last Admin: 03/17/20 22:39 Dose: 3 mg Documented by: Nitroglycerin (Nitrostat) 0.4 mg SUBLINGUAL Q5M PRN PRN Reason: CARDIAC/CHEST PAIN Ondansetron HCl (Zofran) 4 mg IV Q8H PRN PRN PRN Reason: NAUSEA/VOMITING Pantoprazole Sodium (Protonix) 40 mg PO DAILY [facility] Last Admin: 03/18/20 11:49 Dose: 40 mg Documented by: Sodium Chloride () 10 - 40 ml IV UD PRN PRN Reason: SALINE FLUSH Last Admin: 03/18/20 12:09 Dose: 10 ml Documented by: Sodium Chloride () 500 ml IV BOLUS PRN PRN Reason: VASO-VAGAL PROTOCOL Ticagrelor (Brilinta) 90 mg PO BID [facility] Medical Necessity - Tobacco Use Smoking Status: Never smoker Tobacco Use: Non-smoker Assessment/Plan All Active Problems (Last Reviewed 03/17/20 @ 16:[address] Elisa Joshua, DO) Chest pain (Acute) Hypertensive urgency (Acute) Elevated troponin (Acute) Abnormal cardiac enzyme level (Acute) PAD (peripheral artery disease) (Acute) Vaginal wall prolapse (Acute) Hyponatremia (Acute) UTI (urinary tract infection) (Acute) 1. Non-STEMI- CAD s/p PTCA/ARIADNA proximal and mid OM1. Patient will need to return for PCI of LAD in 3 to 4 weeks. Continue aspirin, Brilinta, beta-juanpablo. Allergy to statin. Cardiology following. 2. Hypertensive urgency-now improved. Continue carvedilol, hydralazine, losartan. 3. History of CVA-continue aspirin. Allergy to statin. 4. GERD-continue PPI. 5. Mild chronic anemia-stable. 6. Vaginal wall prolapse, chronic 7. Obesity-encouraged diet and lifestyle modifications. DVT prophylaxis- Lovenox sc This patient was seen by TIFFANIE Sterling under the supervision of Dr. Dorsey. <Kiara Dorsey - Last Filed: 03/18/20 14:40> - Physical Exam Vitals/I&O's: Vital Signs Temp Pulse Resp BP Pulse Ox 97.7 F L 60 13 146/60 H 99 03/18/20 12:34 03/18/20 14:00 03/18/20 14:00 03/18/20 14:00 03/18/20 14:00 Oxygen Flow Rate (L/min) 2 Oxygen Delivery Method Nasal Cannula Weight: 78.8 kg Body Mass Index (BMI) 34.1 Finger Stick Blood Glucose 91 Intake and Output for Last 24 Hours 03/16/20 03/17/20 03/18/20 23:59 23:59 23:59 Intake Total 780 / 780 100 / 100 Balance 780 / 780 100 / 100 Laboratory Results 03/17/20 15:52: Troponin I 0.244 H 03/17/20 18:24: Troponin I 0.255 H 03/18/20 05:46: WBC 4.6, RBC 3.52 L, Hgb 10.4 L, Hct 31.6 L, MCV 89.8, MCH 29.5, MCHC 32.9, RDW Std Deviation 42.3, RDW Coeff of Lucía 12.8, Plt Count 301, MPV 9.9, Immature Gran % (Auto) 0.200, Neut % (Auto) 56.3, Lymph % (Auto) 31.9, [place] % (Auto) 8.9, Eos % (Auto) 2.0, Baso % (Auto) 0.7, Absolute Neuts (auto) 2.6, Absolute Lymphs (auto) 1.47, Nucleated RBC % 0 03/18/20 05:46: Sodium 133 L, Potassium 3.9, Chloride 99, Carbon Dioxide 27.0, Anion Gap 7, BUN 18, Creatinine 0.70, Estim Creat Clear Calc 60.47, Est GFR (MDRD) Af Amer 105, Est GFR (MDRD) Non-Af 87, BUN/Creatinine Ratio 25.8 H, Glucose 99, Calcium 8.7, Magnesium 2.2, Total Bilirubin 0.40, AST 20, ALT 19, Alkaline Phosphatase 76, Total Protein 6.7, Albumin 3.2, Globulin 3.5, Albumin/Globulin Ratio 0.9, TSH 2.24 Current Medications Acetaminophen (Tylenol) 650 mg PO Q6H PRN PRN PRN Reason: Pain Score 1-10/Temp > 100.7 F Last Admin: 03/18/20 14:07 Dose: 650 mg Documented by: Albuterol Sulfate (Ventolin Aerosols) 2.5 mg INHALATION Q2H PRN PRN PRN Reason: SOB/Wheezing Aspirin (Ecotrin) 81 mg PO DAILY@0800 [facility] Last Admin: 03/18/20 06:45 Dose: 81 mg Documented by: Atropine Sulfate () 0.5 mg IV UD PRN PRN Reason: HR <50 bpm Carvedilol (Coreg) 6.25 mg PO BID [facility] Last Admin: 03/18/20 06:45 Dose: 6.25 mg Documented by: Docusate Sodium (Colace) 100 mg PO BID PRN PRN PRN Reason: Constipation Enoxaparin Sodium (Lovenox) 40 mg SC DAILY [facility] Last Admin: 03/18/20 12:13 Dose: Not Given Documented by: Heparin Sodium (Beef Lung) (Heparin 500 Unit/5 Ml (100/Ml)) 500 unit IV UD PRN PRN Reason: HEPARIN FLUSH Hydralazine HCl (Apresoline) 50 mg PO TID [facility] Last Admin: 03/18/20 06:45 Dose: 50 mg Documented by: Hydralazine HCl (Apresoline Iv) 10 mg IV Q4H PRN PRN PRN Reason: SBP> 170 Last Admin: 03/18/20 12:10 Dose: 10 mg Documented by: Sodium Chloride () 1,000 mls @ 0 mls/hr IV .Q0M [facility] Sodium Chloride () 1,000 mls @ 100 mls/hr IV .Q10H [facility] Stop: 03/18/20 16:19 Last Admin: 03/18/20 10:46 Dose: 100 mls/hr Documented by: Labetalol HCl (Trandate) 5 mg IV X1 PRN PRN Reason: SBP > 160 when pulling sheath Stop: 03/20/20 10:17 Losartan Potassium (Cozaar) 50 mg PO BID [facility] Last Admin: 03/18/20 06:45 Dose: 50 mg Documented by: Melatonin (Melatonin) 3 mg PO QHS PRN PRN PRN Reason: INSOMNIA Last Admin: 03/17/20 22:39 Dose: 3 mg Documented by: Nitroglycerin (Nitrostat) 0.4 mg SUBLINGUAL Q5M PRN PRN Reason: CARDIAC/CHEST PAIN Ondansetron HCl (Zofran) 4 mg IV Q8H PRN PRN PRN Reason: NAUSEA/VOMITING Pantoprazole Sodium (Protonix) 40 mg PO DAILY [facility] Last Admin: 03/18/20 11:49 Dose: 40 mg Documented by: Sodium Chloride () 10 - 40 ml IV UD PRN PRN Reason: SALINE FLUSH Last Admin: 03/18/20 12:09 Dose: 10 ml Documented by: Sodium Chloride () 500 ml IV BOLUS PRN PRN Reason: VASO-VAGAL PROTOCOL Ticagrelor (Brilinta) 90 mg PO BID [facility] Assessment/Plan This patient was seen in conjunction with Patience Coreas POWER MACHINE OPERATOR. I have independently interviewed and examined the patient and reviewed pertinent historical, laboratory, and other data. Please refer to her note for patient's presentation, findings, and recommendations. Patient was seen and examined. No acute events overnight. Vitals were reviewed -stable Physical Exam: Gen: Looks in some discomfort, not pale, not jaundiced, alert oriented x3 CVS:HS I +II, regular, no murmurs RESP: Diminished at lung bases GI: BS present and normal, nontender, no palpable organs EXT:No edema Labs reviewed: ASSESSMENT: 1. CAD status post stent 2. Accelerated hypertension/hypertensive emergency, POA 3. History of CVA 4. GERD 5. Obesity 6. Anemia Meds reviewed Plan: Continue on aspirin, Brilinta, carvedilol Inpatient E&M: 52191 Subs Hosp L2
--- NOTE | 2020-03-18 14:03 | CRPHASE1_ITS ---
Patient Communication Former Patient:: Phase I PHII Cardiac Rehab Discussed with Patient:: Yes Guide to Cardiac Rehab Given to Patient:: Yes Cardiac Rehab Facility Choice List Given to Patient:: Yes Choice Program [facility] PHII:: Communication Given to CR General Science Teacher:: Diallo Gonzalez Phase II Cardiac Rehab:: Yes Sessions:: 36 sessions - 3 days/wk, 12 weeks Risk Factors/Lifestyle Smoking Status: Never smoker Second-Hand Smoke:: No Hx Hypertension: Yes Hx Diabetes Mellitus Type 1: No Hx Diabetes Mellitus Type 2: No Hx Metabolic Disorders: No Hx Dyslipidemia: Yes Hx Obesity: Yes Post-Menopausal: Yes ETOH: No Caffeine: No Substance Abuse: No Risk Factor for Sedentary Lifestyle: Highest Risk Family History: Family History (Last Reviewed 02/25/20 @ 13:50 by Aleyda Barber) Mother CAD (coronary artery disease) Brother CVA (cerebral vascular accident) Sister CAD (coronary artery disease) Sister Diabetes Brother Diabetes Brother CAD (coronary artery disease) Phase I Education Given On:: [place], Nutrition, Antiplatelet medication Issues Affecting Care:: Cognitive Knowledge of Condition:: No Learning Preferences: Verbal, Written Cardiac Rehabilitation Info Cardiac Rehabilitation Program Information: Cardiac Rehabilitation is important for patients like you who are recovering from a heart problem. Cardiac rehabilitation programs are recognized as integral to the continued care of the patient with coronary heart disease. The cardiac rehabilitation program is designed to optimize a patient's physical, psychological, and social functioning. Health senior caregiver work in cardiac rehabilitation programs and assist you with getting the treatments you need to get stronger and healthier - like exercise, healthy eating habits, and medications. Cardiac rehabilitation has been show to help people with heart problems live longer and have better life enjoyment than people who do not go to cardiac rehabilitation. Please contact the Cardiac Rehabilitation Program at [facility] at in two weeks if you have not heard from them.
--- NOTE | 2020-03-18 14:05 | CRPH1.INSTRU ---
General Education CAD and cardiac anatomy and function:: Patient communicates acknowledgment Explanation of diagnoses and procedures:: Patient communicates acknowledgment Sign/Symptoms of MO:: Patient communicates acknowledgment Antiplatelet therapy: Patient communicates acknowledgment Proper use of NTG-SL: Patient communicates acknowledgment Emergency procedures and activation of EMS: Patient communicates acknowledgment Compliance of all prescribed medications: Patient communicates acknowledgment Dyslipidemia Patient Dyslipidemia Risk Factors Are:: Total Cholesterol, Triglycerides, HDL, LDL Recommendations Include:: Lipid profile provided, Reviewed NCEP/ATP guidelines, Therapeutic Lifestyle Change dietary guidelines Dyslipidemia Response Code:: Patient communicates acknowledgment Overweight/Obesity Patient Overweight/Obesity Risk Factors Are:: Obesity - > or = 30 Recommendations Include:: Weight loss of 5-10%, Reduced calorie diet, Exercise 5-7 times/week Overweight/Obesity:: Patient communicates acknowledgment Hypertension Recommendations Include:: Maintain BP <130/85, DASH dietary guidelines, Decrease/maintain normal body weight, Moderation of ETOH Hypertension:: Patient communicates acknowledgment Sedentary Patient Sedentary Risk Factors Are:: Lack of regular exercise Recommendations Include:: Aerobic exercise 5-7 times/week for 20-30 minutes continuously, Benefits of regular exercise, Discussed home walking program, Monitored Outpatient Cardiac Rehab Sedentary Response Code:: Patient communicates acknowledgment
[2020-03-18] MEDS: Ketorolac 15 MG/ML Vial IV (15:41)
--- NOTE | 2020-03-18 17:55 | CL.D_ITS ---
Patient Name: SANJIV PEOPLES Study Date: 03/18/2020 Performing: Lei Jauregui MD Ht: 59 inches 150 cm : 1945 Wt: 174.4 lbs 79 kg Age: 74 Gender: female BSA: 1.74 PROCEDURE(S) PERFORMED [id number] W OR WO PTCA, SINGLE CORONARY ARTERY CLINICAL PROFILE AND INDICATIONS Indications: Suspected CAD Heart Failure: None Stress/Imaging Date: 11/21/2019Stress Test with SPECT MPI: Negative Angina Classification Anginal Classification w/in 2 Weeks: CCS III CAD Presentations: Non-STEMI. CONCLUSIONS Elevated Left Ventricular End Diastolic Pressure Normal LV size, wall motion,and systolic function LVEF: by LV gram 60 % [place] Multivessel CAD RECOMMENDATIONS Risk factor modification Medical therapy Referred for immediate PCI DESCRIPTION OF PROCEDURE The patient arrived to the procedure lab. The risks and benefits of the procedure as well as a full d escription of our services here and current unavailability of surgical backup were fully explained to the patient and/or their significant other prior to the catheterization. The Timeout was completed, verifying the correct patient and procedure. The patient's procedural site was prepped and draped in the usual fashion. Local anesthetic was given subcutaneously to right radial region with Lidocaine 2% . Using a modified Seldinger technique, arterial access was obtained via the right radial artery, a 6 Fr sheath was inserted. Left Coronary Artery selective angiography was performed in multiple views u sing a 5 Fr. 4.0 [place] catheter. Right Coronary Artery selective angiography was then performed in mu ltiple views using a 5 Fr. 4.0 [place] catheter. Left Ventriculography was performed in [place] projection using a 5 Fr. Pigtail catheter. LV to AO pullback pressures were then recorded.The arterial sheath was pulled and a TR Band was applied for hemostasis CORONARY ANGIOGRAPHY DOMINANCE: Left Dominant LEFT HEART ASSESSMENT Left Ventricular Ejection Fraction: by LV Gram 60 % Normal LV wall motion Elevated Left Ventricular End Diastolic Pressure LVEDP: 23 mmHg LEFT MAIN: Mild luminal irregularities LEFT ANTERIOR DESCENDING ARTERY: PROX LAD: Mild calcification, hazy: 75 % Stenosis MID LAD: Mild luminal irregularities, ectatic / aneurysmal segment DISTAL LAD: smaller caliber vessel: 85 % Stenosis CIRCUMFLEX ARTERY: Mild luminal irregularities DISTAL CIRC: 90 % Stenosis OM 1: Proximal - 90 % Stenosis, Mid - 90 % Stenosis RIGHT CORONARY ARTERY: PROX RCA: diffuse: 75 % Stenosis AORTIC ROOT: Angiographically normal COMPLICATIONS No Complications PROCEDURE MEDICATIONS Fentanyl 50 mcg IV Versed 1 mg IV Fentanyl 25 mcg IV Oxygen: 2 L/min via nasal cannula Heparin diluted in 23cc Heparinized saline. Patient given 10cc IA of this solution. 03/18/2020 09:10: 43 Heparin 5000 unit(s) IV 03/18/2020 09:34:05 Verapamil 2.5mg, Ntg 100mcgs, 2000 units of Heparin diluted in 23cc Heparinized saline. Patient give n 10cc IA of this solution. 03/18/2020 09:10:43 SUMMARY OF HEMODYNAMIC DATA Time AIR REST ECG 09:06:21 AO 104/52 (71) SA 09:11:21 LV 186/1, 23 09:17:32 LV 189/0, 23 09:17:38 LV 175/-2, 29 09:18:30 LVp 187/1, 22 09:18:35 AOp 180/69 (114) 09:18:40 AO 188/72 (117) 09:18:47 Signed By Lei Jauregui MD On 03/18/2020 17:54:55 Lei Jauregui MD
[2020-03-18] MEDS: Carvedilol 12.5 MG Tablet PO (21:18)
[2020-03-18] MEDS: Fluticasone 0.05% 1 SPRAY NASAL.SRY 2 SPRAY NASAL (21:18)
[2020-03-18] MEDS: TICAGRELOR 90 MG TABLET PO (21:19)
[2020-03-18] MEDS: MELATONIN 3 MG TABLET PO (22:34)
[2020-03-19] VITALS (8 sets, daily range): BP systolic 145–166; BP diastolic 57–78; PULSE 67–81; RESP 16–17; TEMP 36.4–36.8; O2SAT 94–97
[2020-03-19] MEDS: Acetaminophen 325 MG Tablet 650 MG PO (01:51)
[2020-03-19] MEDS: hydrALAZINE 50 MG Tablet PO (06:00)
[2020-03-19 06:25] LABS: Hematocrit 32.2 % (37-47); Hemoglobin 10.6 g/dL (12.0-15.0); Mean Corp Hgb Conc 32.9 g/dL (32-36); Mean Corpuscular Hgb 29.4 pg (27.0-32.0); Mean Corpuscular Volume 89.4 fL (81-99); Mean Platelet Vol. 9.7 fl (6.2-12.0); Platelet Count 314 K/mm3 (150-450); RBC Distribution Width SD 42.4 fl (35.1-43.9); White Blood Count 5.8 K/mm3 (4.4-11.0)
[2020-03-19 06:52] LABS: ALB/GLOB Ratio 0.9 RATIO (0.9-2.4); AST(SGOT) 18 U/L (15-37); Alanine Aminotransfer ALT/SGPT 19 U/L (13-56); Albumin, Serum 3.2 g/dL (3.2-5.0); Alkaline Phosphatase 72 U/L (45-117); Anion Gap 8 (5-15); BUN 23 mg/dL (7-18); BUN/Creat Ratio 23.7 RATIO (10-20); Calcium,Total 8.6 mg/dL (8.5-10.1); Chloride 100 mmol/L (98-107); Creatinine, Serum 0.97 mg/dL (0.55-1.02); EST Glomerular Filtration Rate 59 mL/min (>60); Est Glom Filt Rate - Afr Amer 72 mL/min (>60); Estimated Creatinine Clearance 60.76 ml/min; Globulin 3.6 g/dL (2.2-4.2); Glucose 97 mg/dL (74-106); Potassium 3.7 mmol/L (3.5-5.1); Protein, Total 6.8 g/dL (6.4-8.2); Sodium Level 132 mmol/L (136-145)
[2020-03-19] MEDS: Fluticasone 0.05% 1 SPRAY NASAL.SRY 2 SPRAY NASAL (07:51)
[2020-03-19] MEDS: Carvedilol 12.5 MG Tablet PO (07:52)
[2020-03-19] MEDS: TICAGRELOR 90 MG TABLET PO (07:52)
[2020-03-19] MEDS: Pantoprazole Sodium 40 MG Tablet PO (07:52)
[2020-03-19] MEDS: Losartan Potassium 50 MG Tablet PO (07:52)
[2020-03-19] MEDS: Aspirin E.C. 81 MG Tablet PO (07:52)
--- NOTE | 2020-03-19 08:15 | PN.CARD_ITS ---
Subjectve: The patient is awake and alert. She states she feels better overall. She has had no recurrent chest or left upper extremity discomfort. Objective: Vital Signs Temp Pulse Resp BP Pulse Ox 97.5 F L 68 16 166/78 H 94 03/19/20 08:14 03/19/20 08:14 03/19/20 08:14 03/19/20 08:14 03/19/20 08:14 Oxygen Flow Rate (L/min) 2 Oxygen Delivery Method Room Air Weight: 169 lb 5.04 oz Body Mass Index (BMI) 34.1 Finger Stick Blood Glucose 91 Intake and Output for Last 24 Hours 03/17/20 03/18/20 03/19/20 23:59 23:59 23:59 Intake Total 780 / 780 1138.33 / 1138.33 150 / 150 Balance 780 / 780 1138.33 / 1138.33 150 / 150 General: Awake, Alert, Oriented x 3, Cooperative, No Acute Distress HEENT: Atraumatic, Normocephalic, PERRL, EOMI, Sclera Non Icteric Neck: Supple, Good ROM, No JVD Lungs: Clear to auscultation Cardiovascular: Regular Rhythm, Normal S1, Normal S2 Vascular: Normal Radial Pulses Abdomen: Bowel Sounds Present, Soft Extremities: No edema Neurological: No Focal Motor or Sensory Deficit Psych/Mental Status: Appropriate 03/19/20 06:18: WBC 5.8, RBC 3.60 L, Hgb 10.6 L, Hct 32.2 L, MCV 89.4, MCH 29.4, MCHC 32.9, Plt Count 314, MPV 9.7 03/19/20 06:18: Sodium 132 L, Potassium 3.7, Chloride 100, Carbon Dioxide 24.0, Anion Gap 8, BUN 23 H, Creatinine 0.97, Est GFR (MDRD) Af Amer 72, Est GFR (MDRD) Non-Af 59 L, BUN/Creatinine Ratio 23.7 H, Glucose 97, Calcium 8.6, Total Bilirubin 0.60 Rhythm: Sinus rhythm EKG: Sinus rhythm; left axis deviation; no acute ECG changes Cardiac Cath: CONCLUSIONS Elevated Left Ventricular End Diastolic Pressure Normal LV size, wall motion,and systolic function LVEF: by LV gram 60 % [place] Multivessel CAD RECOMMENDATIONS Risk factor modification Medical therapy Referred for immediate PCI DESCRIPTION OF PROCEDURE The patient arrived to the procedure lab. The risks and benefits of the procedure as well as a full description of our services here and current unavailability of surgical backup were fully explained to the patient and/or their significant other prior to the catheterization. The Timeout was completed, verifying the correct patient and procedure. The patient's procedural site was prepped and draped in the usual fashion. Local anesthetic was given subcutaneously to right radial region with Lidocaine 2%. Using a modified Seldinger technique, arterial access was obtained via the right radial artery, a 6Fr sheath was inserted. Left Coronary Artery selective angiography was performed in multiple views using a 5 Fr. 4.0 [place] catheter. Right Coronary Artery selective angiography was then performed in multiple views using a 5 Fr. 4.0 [place] catheter. Left Ventriculography was performed in [place] projection using a 5 Fr. [place] catheter. LV to AO pullback pressures were then recorded.The arterial sheath was pulled and a TR Band was applied for hemostasis CORONARY ANGIOGRAPHY DOMINANCE: Left Dominant LEFT HEART ASSESSMENT Left Ventricular Ejection Fraction: by LV Gram 60 % Normal LV wall motion Elevated Left Ventricular End Diastolic Pressure LVEDP: 23 mmHg LEFT MAIN: Mild luminal irregularities LEFT ANTERIOR DESCENDING ARTERY: PROX LAD: Mild calcification, hazy: 75 % Stenosis MID LAD: Mild luminal irregularities, ectatic / aneurysmal segment DISTAL LAD: smaller caliber vessel: 85 % Stenosis CIRCUMFLEX ARTERY: Mild luminal irregularities DISTAL CIRC: 90 % Stenosis OM 1: Proximal - 90 % Stenosis, Mid - 90 % Stenosis RIGHT CORONARY ARTERY: PROX RCA: diffuse: 75 % Stenosis AORTIC ROOT: Angiographically normal PCI: CONCLUSIONS Successful PTCA/ARIADNA proximal and mid OM1 Medical Necessity - Tobacco Use Smoking Status: Never smoker Tobacco Use: Non-smoker Assessment/Plan 1. Angina pectoris The patient presented with chest discomfort. It was concerning for angina pectoris-unstable. She has undergone evaluation with diagnostic cardiac catheterization. She was found to have angiographically significant multivessel CAD. She is now status post LCx/OM PCI. She will continue medical therapy. She will be established for a staged PCI procedure to the LAD system. 2. CAD She does have a history/finding of multivessel CAD. Her findings would suggest that her previous pharmacologic stress nuclear imaging study was a false n egative secondary to balanced ischemia. At the moment she will continue medical therapy. She has undergone LCx/OM PCI as noted. She will be established for an elective staged PCI procedure to her L AD system. 3. Hypertensive urgency Her blood pressure appears to be coming under better control with additional adjustment of her medications. Hopefully will continue to improve. 4. Hyperlipidemia Ideally she would be on statin therapy. However she states statins lead to muscle weakness and she cannot tolerate these medications. She is hesitant to try any other lipid-lowering medication. Hopefully she will reconsider her position and attempt non-statin medical therapy to assist with her underlying CAD process. 5. PAD She has been found based upon her previous noninvasive studies to have elements of PAD in her abdominal vasculature and her renal arteries. Depending upon her clinical course and her blood pressure, her renal artery status may need to be reassessed to assist for additional diagnostic studies and the need for any form of intervention on her renal arteries. Overall, from a cardiac standpoint at this time, it appears the patient has had symptomatic improvement and blood pressure improvement during her hospitalization. The patient will continue medical therapy. She will be followed as an outpatient. She will be established for a staged PCI procedure to her LAD system. This note was generated using a voice recognition system and there may be incorrect words, spelling or punctuation that were not noted when reviewing the office note prior to saving.
--- NOTE | 2020-03-19 09:56 | PCM.DC ---
- Discharge Diagnoses Current Active Problems: Current Active and Chronic Problems (Last Updated 03/18/20 @ 15:27 by Leyla Pickard) Presence of stent in coronary artery (Chronic ~03/18/20) Successful PTCA/ARIADNA proximal and mid OM1 per cath 03/18/20 Atherosclerotic heart disease of [place] coronary artery without angina pectoris (Chronic) Chest pain (Acute) Hypertensive urgency (Acute) Elevated troponin (Acute) Abnormal cardiac enzyme level (Acute) PAD (peripheral artery disease) (Acute) You will use the following diet at home:: Cardiac Your food should be the consistency of: Regular Your liquids should be the consistency of: Regular/Thin Discharge Activity: Return to Normal Activity Call your doctor if you observe: Chest pain Allergies/Adverse Reactions: Allergies Knahoqj-Rui-Fwr Reductase Inhibitor Adverse Reaction (Verified 03/17/20 12:25) leg muscle weakness Medications to take at Discharge aspirin 81 mg tablet,delayed release 81 mg PO DAILY #1 tab 10/31/19 clonidine HCl 0.1 mg tablet 0.1 mg PO BID PRN 10/31/19 losartan 100 mg tablet 50 mg PO BID tab 01/31/20 estradiol See Rx Instructions VAGINAL .COMPLEX #42.5 g 02/25/20 Omeprazole 40 mg PO DAILY 03/17/20 Carvedilol [Coreg (Beta Netta)] 12.5 mg PO BID #60 tab 03/19/20 Ticagrelor [Brilinta] 90 mg PO BID #60 tab 03/19/20 The following prescriptions were given: Ticagrelor [Brilinta] 90 mg PO BID #60 tab Transmission Status: Pending to [id number] Carvedilol [Coreg (Beta Netta)] 12.5 mg PO BID #60 tab Transmission Status: Pending to [facility] Primary Care Physician: Sarabjit Tam Chi, MD [Primary Care Provider] - Please follow up with your Primary Care Physician in: 1-2 weeks Test Results: Test results from this visit will be discussed in further detail at your follow-up appointment, if applicable. Please Follow Up With: Lei Jauregui MD When: as directed Proposed Discharge Date: 03/19/20
--- NOTE | 2020-03-19 10:45 | CASEMGMT ---
YESSY GANDHI assessment: Face to Face with patient for initial transition planning/care coordination assessment. RN HIRAM introduced self and role at [facility], pt voices understanding and consents to assessment at this time. Pt is sitting up in bed in no distress at this time. Pt is A/Ox4 at this time and answers all questions appropriately at this time. Care providers, pharmacy, and demographics verified at this time. Presentation: Pain started to left arm/shoulder/chest/back while pushing shopping cart. Pt then went home and continued with pain Admitting dx: CP, elev trop PCP: Yonatan Specialists: Moodlucy, cardio; Daniele nephmauricio Preferred Pharmacy: [facility] Insurance: [employer] Prescription Benefit: [employer] Living Will/HPOA: Pt states has LW/HPOA and is aware that they are not on file at [facility] at this time. Pt encouraged to bring AD's in when able. Pt states her niece, Chantelle De Oliveira, is HPOA. LNOK: Chantelle De Oliveira, niece/HPOA Living Arrangements: Pt states lives alone in 1 story condo and states no concerns at home at this time. Pt states is independent with ADL's. Transportation: Pt states drives self and states no transportation concerns at this time. DME/HHC: Pt states has the following DME: cane, walker, w/c, grab bars, and shower chair. Pt denies need for any further DME. Pt states no hx of HHC or SNF in the past. Pt to be sent home and Brilinta and med e-scribed to [facility] previously. Call to [facility] and per tech, pt's co-pay is $195 at this time. Pt aware and provided with Brilinta 30 day free trial card at this time. Pt voices gratitude at this time and is aware to discuss with cardiology at f/u visit, voices understanding. Pt states no concerns with going at time of discharge. Pt is retired. Pt states does not smoke cigarettes or drink ETOH. Pt voices no further concerns/needs at this time. CM to follow for any further discharge planning/needs. Advised pt to ask for CM if any further questions/concerns/needs arise, voices understanding. Pt Goal: Home Plan: [place] YESSY GANDHI
--- NOTE | 2020-03-19 12:27 | PCM.DC.SUM ---
<Maged Paz - Last Filed: 03/19/20 12:27> Discharge Date and Diagnosis Date of Admission: 03/17/20 Date of Discharge: 03/19/20 - Primary Discharge Diagnosis Acute Problems: NSTEMI, CAD with stent to prox and mid OM1 HTN urgency 2/2 above - Secondary Discharge Diagnosis Chronic Problems: Chronic Problems (Last Updated 03/18/20 @ 15:27 by Leyla Pickard) Presence of stent in coronary artery (Chronic ~03/18/20) Successful PTCA/ARIADNA proximal and mid OM1 per cath 03/18/20 Atherosclerotic heart disease of [place] coronary artery without angina pectoris (Chronic) Non-rheumatic mitral regurgitation (Chronic) CKD (chronic kidney disease) (Chronic) Pessary maintenance (Chronic) Essential hypertension (Chronic) History of gastroesophageal reflux (GERD) (Chronic) Syncope due to orthostatic hypotension (Chronic) HLD (hyperlipidemia) (Chronic) Near syncope (Chronic) Hospital Course and Treatment Imaging Results: RAD/Chest 1 View (Portable) IMPRESSION: Stable examination. Left heart cath: CONCLUSIONS Elevated Left Ventricular End Diastolic Pressure Normal LV size, wall motion,and systolic function LVEF: by LV gram 60 % [place] Multivessel CAD RECOMMENDATIONS Risk factor modification Medical therapy Referred for immediate PCI CORONARY ANGIOGRAPHY DOMINANCE: Left Dominant LEFT HEART ASSESSMENT Left Ventricular Ejection Fraction: by LV Gram 60 % Normal LV wall motion Elevated Left Ventricular End Diastolic Pressure LVEDP: 23 mmHg LEFT MAIN: Mild luminal irregularities LEFT ANTERIOR DESCENDING ARTERY: PROX LAD: Mild calcification, hazy: 75 % Stenosis MID LAD: Mild luminal irregularities, ectatic / aneurysmal segment DISTAL LAD: smaller caliber vessel: 85 % Stenosis CIRCUMFLEX ARTERY: Mild luminal irregularities DISTAL CIRC: 90 % Stenosis OM 1: Proximal - 90 % Stenosis, Mid - 90 % Stenosis RIGHT CORONARY ARTERY: PROX RCA: diffuse: 75 % Stenosis AORTIC ROOT: Angiographically normal Consults: [facility] - cardiology Operations: None Procedures: Cardiac catheterization Summary of Care Provided: Hospital course: The patient is a 74 year old F past medical history as above who presented to the emergency room with chest pain. Troponin was indeterminate, EKG was negative, BP was uncontrolled. She was admitted to the PCU and cardiology was consulted. Repeat troponin was elevated. The patient was taken for heart catheterization and a stent was placed to prox and mid OM1. She did well following the procedure and the following day she had no chest pain. She was discharged home in stable condition. 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 Her home regimen will include aspirin, carvedilol, Brilinta, losartan. This patient was seen by Maged Paz PA-C under the supervision of Doctor Dorsey. [] - Physical Exam Vitals/I&O's: Vital Signs Temp Pulse Resp BP Pulse Ox 97.8 F 71 16 158/76 H 96 03/19/20 10:00 03/19/20 10:00 03/19/20 10:00 03/19/20 10:00 03/19/20 10:00 Oxygen Flow Rate (L/min) 2 Oxygen Delivery Method Room Air Weight: 169 lb 5.04 oz Body Mass Index (BMI) 34.1 Finger Stick Blood Glucose 91 Intake and Output for Last 24 Hours 03/17/20 03/18/20 03/19/20 23:59 23:59 23:59 Intake Total 780 / 780 1138.33 / 1138.33 150 / 150 Balance 780 / 780 1138.33 / 1138.33 150 / 150 General: Alert, Oriented x3, Cooperative HEENT: Atraumatic, PERRLA, EOMI, Normocephalic Neck: Supple, No JVD, Negative Carotid Bruits Lungs: Clear to auscultation, Normal air movement Cardiovascular: Regular rate, No murmurs Abdomen: Bowel Sounds Present, Soft, Non Tender Extremities: No edema, Capillary Refill Less than 3 Seconds Skin: No rashes, No breakdown Musculoskeletal: No Tenderness to Palpation of Joints or Extremities Neurological: Cranial nerves II-XII grossly intact Psych/Mental Status: Normal Affect, Appropriate, Alert and oriented to time, place, person, mood and affect Laboratory Results 03/19/20 06:18: WBC 5.8, RBC 3.60 L, Hgb 10.6 L, Hct 32.2 L, MCV 89.4, MCH 29.4, MCHC 32.9, RDW Std Deviation 42.4, RDW Coeff of Lucía 13.0, Plt Count 314, MPV 9.7 03/19/20 06:18: Sodium 132 L, Potassium 3.7, Chloride 100, Carbon Dioxide 24.0, Anion Gap 8, BUN 23 H, Creatinine 0.97, Estim Creat Clear Calc 60.76, Est GFR (MDRD) Af Amer 72, Est GFR (MDRD) Non-Af 59 L, BUN/Creatinine Ratio 23.7 H, Glucose 97, Calcium 8.6, Total Bilirubin 0.60, AST 18, ALT 19, Alkaline Phosphatase 72, Total Protein 6.8, Albumin 3.2, Globulin 3.6, Albumin/Globulin Ratio 0.9 Discharge Diet: Low fat/ Low Cholesterol, 2000 mg Sodium Diet Discharge Activity: Return to Normal Activity Call your doctor if you observe: Chest pain Home Medications: Medications to take at Discharge aspirin 81 mg tablet,delayed release 81 mg PO DAILY #1 tab 10/31/19 clonidine HCl 0.1 mg tablet 0.1 mg PO BID PRN 10/31/19 losartan 100 mg tablet 50 mg PO BID tab 01/31/20 estradiol See Rx Instructions VAGINAL .COMPLEX #42.5 g 02/25/20 Omeprazole 40 mg PO DAILY 03/17/20 Carvedilol [Coreg (Beta Netta)] 12.5 mg PO BID #60 tab 03/19/20 Ticagrelor [Brilinta] 90 mg PO BID #60 tab 03/19/20 Following Prescriptions Were Given to Patient: Ticagrelor [Brilinta] 90 mg PO BID #60 tab Transmission Status: Received by [id number] Carvedilol [Coreg (Beta Netta)] 12.5 mg PO BID #60 tab Transmission Status: Received by [id number] Primary Care Physician: Sarabjit Tam Chi, MD [Primary Care Provider] - Please follow up with your Primary Care Physician in: 1-2 weeks Please Follow Up With: Lei Jauregui MD When: as directed Disposition: Home Minutes spent on discharge:: 35 Patient Condition:: Stable Medical Necessity - Tobacco Use Smoking Status: Never smoker Tobacco Use: Non-smoker Meaningful Use Info Meaningful Use Diagnoses (Choose all that apply): None applicable <[employer] - Last Filed: 03/19/20 16:05> Discharge Date and Diagnosis - Secondary Discharge Diagnosis Chronic Problems: Chronic Problems (Last Updated 03/18/20 @ 15:27 by Leyla Pickard) Presence of stent in coronary artery (Chronic ~03/18/20) Successful PTCA/ARIADNA proximal and mid OM1 per cath 03/18/20 Atherosclerotic heart disease of [place] coronary artery without angina pectoris (Chronic) Non-rheumatic mitral regurgitation (Chronic) CKD (chronic kidney disease) (Chronic) Pessary maintenance (Chronic) Essential hypertension (Chronic) History of gastroesophageal reflux (GERD) (Chronic) Syncope due to orthostatic hypotension (Chronic) HLD (hyperlipidemia) (Chronic) Near syncope (Chronic) Hospital Course and Treatment Summary of Care Provided: This patient was seen in conjunction with [facility]. I have independently interviewed and examined the patient and reviewed pertinent historical, laboratory, and other data. Please refer to [facility] note for his patient's presentation, findings, and recommendations. I have reviewed and his note and concur with his documentation 74-year-old female with multiple comorbidities who presented with chest pain. Patient reported that chest pain started 2 days prior to admission and was noted in both arms. Her blood pressure was elevated, would not go down with a as needed clonidine. She took extra hydralazine. The next day she went to the grocery store and was pushing a cart she had persistent left-sided chest pain that radiated to her left arm. In the emergency department, her blood pressure was uncontrolled. Troponins were marginally elevated. Cardiology was consulted. Patient underwent cardiac catheterization on 03/18/20. She had significant CAD -75% stenosis of the proximal LAD, 85% stenosis of distal LAD, 90% stenosis of the distal circumflex, 90% stenosis of the obtuse marginal 1 artery - proximal and mid regions, 75% stenosis of RCA. She underwent a staged PCI with stent to first obtuse marginal, mid and proximal. Patient was monitored overnight with no acute events. On the day of discharge, she was seen and examined. Denied any new complaints. Physical Exam: Gen: Comfortable, not pale, not jaundiced CVS:HS I +II, regular, no murmurs RESP: CTA GI: BS present and normal, soft, nontender, no palpable organs EXT:No edema, right radial cardiac cath site is soft, no swelling, nontender - Physical Exam Vitals/I&O's: Vital Signs Temp Pulse Resp BP Pulse Ox 97.8 F 71 16 158/76 H 96 03/19/20 10:03/19/20 10:03/19/20 10:03/19/20 10:03/19/20 10:00 Oxygen Flow Rate (L/min) 2 Oxygen Delivery Method Room Air Weight: 76.8 kg Body Mass Index (BMI) 34.1 Finger Stick Blood Glucose 91 Intake and Output for Last 24 Hours 03/17/20 03/18/20 03/19/20 23:59 23:59 23:59 Intake Total 780 / 780 1138.33 / 1138.33 150 / 150 Balance 780 / 780 1138.33 / 1138.33 150 / 150 Laboratory Results 03/19/20 06:18: WBC 5.8, RBC 3.60 L, Hgb 10.6 L, Hct 32.2 L, MCV 89.4, MCH 29.4, MCHC 32.9, RDW Std Deviation 42.4, RDW Coeff of Lucía 13.0, Plt Count 314, MPV 9.7 03/19/20 06:18: Sodium 132 L, Potassium 3.7, Chloride 100, Carbon Dioxide 24.0, Anion Gap 8, BUN 23 H, Creatinine 0.97, Estim Creat Clear Calc 60.76, Est GFR (MDRD) Af Amer 72, Est GFR (MDRD) Non-Af 59 L, BUN/Creatinine Ratio 23.7 H, Glucose 97, Calcium 8.6, Total Bilirubin 0.60, AST 18, ALT 19, Alkaline Phosphatase 72, Total Protein 6.8, Albumin 3.2, Globulin 3.6, Albumin/Globulin Ratio 0.9 Inpatient E&M: 49783 Disch Hosp Multi Select Codes - Visit Charges Visit Charges: 04699 Disch Hosp
== END 2020-03-19 11:19 | disposition home or self-care (01) | DRG 247 ==
LOC: ED 14:17 → PCU 16:08
PROVIDERS: Specialist; Admitting Provider Internal Medicine; Emergency Provider Emergency Medicine; PCP Family Medicine Geriatric Medicine; Visit Provider Internal Medicine
DX: I21.4 Non-ST elevation (NSTEMI) myocardial infarction (principal); E87.1 Hypo-osmolality and hyponatremia; T50.1X5A Adverse effect of loop [high-ceiling] diuretics, initial encounter; I25.110 Atherosclerotic heart disease of native coronary artery with unstable angina pectoris; N18.2 Chronic kidney disease, stage 2 (mild); I16.0 Hypertensive urgency; I12.9 Hypertensive chronic kidney disease with stage 1 through stage 4 chronic kidney disease, or unspecified chronic kidney disease; I34.0 Nonrheumatic mitral (valve) insufficiency; E78.5 Hyperlipidemia, unspecified; I95.1 Orthostatic hypotension; I73.9 Peripheral vascular disease, unspecified; K21.9 Gastro-esophageal reflux disease without esophagitis; D63.1 Anemia in chronic kidney disease; E66.9 Obesity, unspecified; Z68.34 Body mass index [BMI] 34.0-34.9, adult; Z88.8 Allergy status to other drugs, medicaments and biological substances; Z79.82 Long term (current) use of aspirin; Z79.899 Other long term (current) drug therapy; Z86.73 Personal history of transient ischemic attack (TIA), and cerebral infarction without residual deficits
CPT/HCPCS: 36415; 71045; 80048; 80053; 83735; 84443; 84484; 85025; 85027; 92928; 93005; 93458; 99152; 99153; 99251; 99285; J7030; Q9967; A4216; C1725; C1769; C1874; C1887; C1894; C9600; G0463; J1327

== ENCOUNTER → 2020-04-09 13:23 | Outpatient (CLI) | payer MEDICARE, SELFPAY ==
[2020-04-07 13:35] VITALS: BMI 34.1
--- NOTE | 2020-04-09 13:25 | VDLE_ITS ---
Reason For Study: edema RLE RIGHT GSV is normal. CFV is compressible, spontaneous, phasic, competent and demonstrates normal augmentation. FV is compressible, spontaneous, phasic, competent and demonstrates normal augmentation. POP V is compressible, spontaneous, phasic, competent and demonstrates normal augmentation. T/P Trunk is compressible. PTV is compressible. RT PerV is compressible. Procedure This is a venous duplex using B-mode, color flow and spectral Doppler. Exam performed in department. The exam was abbreviated due to the COVID 19 protocol. The exam was diagnostic. A preliminary report was called and/or faxed to Dr. Tam. Interpretation Summary Deep veins of the right lower extremity are patent and compressible segmentally. There is no evidence of right lower extremity deep vein thrombosis. Valvular competence appears intact within the proximal deep venous system on the right . The right great saphenous vein appears patent and compressible segmentally. Ordering Physician: Sarabjit Tam Performed By: Enrique Abernathy RVT
--- NOTE | 2020-04-09 15:00 | RAD_ITS ---
HISTORY: PAIN ADDITIONAL HISTORY: None provided. EXAMINATION/TECHNIQUE: XR Knee Complete 4 Views or More Right Number of images including paperwork: 4 COMPARISON: None FINDINGS: BONES: No acute fracture. JOINTS: No subluxation. SOFT TISSUES: No distinct foreign body. Vascular calcifications. RAD/Knee 4 or More Views IMPRESSION: No acute osseous abnormality. at 0216 Reported and signed by: Shirley Schultz MD Electronically Signed: Shirley Schultz MD at 2:16 EDT Tel , Service support ,
== END ==
PROVIDERS: PCP Family Medicine Geriatric Medicine; Referring Provider Family Medicine Geriatric Medicine; Visit Provider Family Medicine Geriatric Medicine
DX: R60.0 Localized edema (principal); M25.561 Pain in right knee
CPT/HCPCS: 73564; 93971

== ENCOUNTER 2020-04-16 09:54 | Day surgery (SDC) | payer MEDICARE, SELFPAY ==
[2020-03-17 15:52] VITALS: BMI 34.1
[2020-04-07 13:35] VITALS: BMI 34.1
[2020-04-15 08:32] VITALS: BMI 34.5
[2020-04-16] VITALS (17 sets, daily range): BP systolic 154–168; BP diastolic 63–69; PULSE 68–74; RESP 14–17; TEMP 36.6–36.9; O2SAT 95–98; BMI 33.7
[2020-04-16 10:15] LABS: Hematocrit 34.4 % (37-47); Hemoglobin 11.4 g/dL (12.0-15.0); Mean Corp Hgb Conc 33.1 g/dL (32-36); Mean Corpuscular Hgb 29.2 pg (27.0-32.0); Mean Corpuscular Volume 88.2 fL (81-99); Mean Platelet Vol. 9.4 fl (6.2-12.0); Platelet Count 323 K/mm3 (150-450); RBC Distribution Width CV 13.3 % (11.6-14.6); RBC Distribution Width SD 43.1 fl (35.1-43.9); White Blood Count 4.7 K/mm3 (4.4-11.0)
[2020-04-16 10:25] LABS: Prothrombin Time (Protime)PT. 12.3 SECONDS (11.7-14.9)
[2020-04-16 10:26] LABS: Partial Thromboplast Time 28.2 Seconds (24.1-36.2)
[2020-04-16 10:29] LABS: Anion Gap 6 (5-15); BUN 13 mg/dL (7-18); BUN/Creat Ratio 16.2 RATIO (10-20); Calcium,Total 8.9 mg/dL (8.5-10.1); Chloride 97 mmol/L (98-107); EST Glomerular Filtration Rate 74 mL/min (>60); Est Glom Filt Rate - Afr Amer 90 mL/min (>60); Estimated Creatinine Clearance 73.25 ml/min; Glucose 102 mg/dL (74-106); Potassium 4.5 mmol/L (3.5-5.1); Sodium Level 129 mmol/L (136-145)
--- NOTE | 2020-04-16 12:19 | EKG12_ITS ---
Test Reason : POST PCI Blood Pressure : / mmHG Vent. Rate : 056 BPM Atrial Rate : 056 BPM P-R Int : 144 ms QRS Dur : 082 ms QT Int : 438 ms P-R-T Axes : 030 -26 091 degrees QTc Int : 422 ms Sinus bradycardia Leftward axis Confirmed by ORION SILVER, LEI ([id number]), movie editor JESSICA ANGUIANO ([id number]) on 04/20/2020 8:09:21 AM Referred By: Lei Sears Confirmed By:LEI SEARS MD
--- NOTE | 2020-04-16 12:30 | EKG12_ITS ---
Test Reason : AM EKG Blood Pressure : / mmHG Vent. Rate : 066 BPM Atrial Rate : 066 BPM P-R Int : 160 ms QRS Dur : 086 ms QT Int : 428 ms P-R-T Axes : 053 -15 068 degrees QTc Int : 448 ms Normal sinus rhythm Normal ECG Confirmed by ORION SILVER, LEI ([id number]), managing editor JESSICA ANGUIANO ([id number]) on 04/20/2020 8:04:41 AM Referred By: Lei Sears Confirmed By:LEI SEARS MD
--- NOTE | 2020-04-16 12:37 | CL.I_ITS ---
Patient Name: SANJIV PEOPLES Study Date: 04/16/2020 Performing: Mariam Gonzalez MD Ht: 59.05 inches 150 cm : 1945 Wt: 171.96 lbs 78 kg Age: 75 Gender: female BSA: 1.73 PROCEDURE(S) PERFORMED ST31-MMZ W OR WO PTCA, SINGLE CORONARY ARTERY CLINICAL PROFILE AND CO-MORBIDITIES Indications: staged PCI of LAD Heart Failure: None Stress/Imaging Stress/Image Study Performed: No CAD Presentations: Other: staged PCI CONCLUSIONS Successful ARIADNA to mLAD RECOMMENDATIONS ASA Indefinitley Brilinta for at least 12 months Follow up with primary sample selector DESCRIPTION OF PROCEDURE The patient arrived to the procedure lab. The risks and benefits of the procedure as well as a full d escription of our services here and current unavailability of surgical backup were fully explained to the patient and/or their significant other prior to the catheterization. The Timeout was completed, verifying the correct patient and procedure. The patient's procedural site was prepped and draped in the usual fashion. Local anesthetic was given subcutaneously to right radial region with Lidocaine 2% . Using a modified Seldinger technique, arterial access was obtained via the right radial artery, a 6 Fr sheath was inserted.. XB 3.0 Guide catheter was inserted and engaged into the LCA. BMW Guide wire was advanced to the L AD. 3.0 x 12 Emerge Balloon catheter was advanced across lesion in the LAD, proximal. Angiogram perfo rmed pre balloon dilatation. PTCA balloon inflated at 12 atms for 16 secs. 4.0 x 20 Synergy Drug Elut ing stent was advanced across the lesion in the LAD, proximal. Angiogram performed pre stent deployme nt. Angiogram performed post stent deployment. Angiogram performed post stent deployment. The arteri al sheath was pulled and a TR Band was applied for hemostasis 15cc air inserted INTERVENTION INFORMATION LESION SITE: LAD (Proximal) Lesion Complexity: High/C, chronic total occlusion: No, lesion at bifurcation: Yes, thrombus present: No, lesion length: 19 mm, culprit lesion: Yes, Previously treated lesion: No Pre Stenosis: 80 % Pre intervention BRADEN flow: 3 PROCEDURE: Drug Eluting Stent with pre dilatation. Post Stenosis: 0 % Post intervention BRADEN flow: 3 Lesion Devices: Cardinal 6 Fr XB3.0 100cm Guide Catheter Dang .014 BMW [place] Straight 190cm Josh Sci EMERGE MR 3.00x12 BALLOON Josh Sci Synergy MR ARIADNA 4.00x20 COMPLICATIONS No Complications PROCEDURE MEDICATIONS Fentanyl 50 mcg IV Versed 1 mg IV Oxygen: 2 L/min via nasal cannula Heparin given IA 04/16/2020 11:52:55 Heparin 3000 unit(s) IV 04/16/2020 11:53:28 Verapamil 2.5mg, Ntg 100mcgs, 3000 units of Heparin given IA 04/16/2020 11:52:55 SUMMARY OF HEMODYNAMIC DATA Time AIR REST AO 155/64 (101) SA 11:57:15 ECG 12:23:49 Signed By Mariam Gonzalez MD On 04/16/2020 12:36:29 PM Mariam Gonzalez MD
--- NOTE | 2020-04-16 12:55 | CRPHASE1 ---
<Linden Reyes - Last Filed: 04/16/20 12:55> Patient Communication Former Patient:: Phase I - Staged PCI: Phase 1 CR completed on 03/18/20 from stage of 02 PCI Choice Program [facility] CR PHII:: Communication Given to CR Road Supervisor:: Diallo Gonzalez Risk Factors/Lifestyle Family History: Family History (Last Reviewed 02/25/20 @ 13:50 by Aleyda Barber) Mother CAD (coronary artery disease) Brother CVA (cerebral vascular accident) Sister CAD (coronary artery disease) Sister Diabetes Brother Diabetes Brother CAD (coronary artery disease) Cardiac Rehabilitation Info Cardiac Rehabilitation Program Information: Cardiac Rehabilitation is important for patients like you who are recovering from a heart problem. Cardiac rehabilitation programs are recognized as integral to the continued care of the patient with coronary heart disease. The cardiac rehabilitation program is designed to optimize a patient's physical, psychological, and social functioning. Health landcare facilitator work in cardiac rehabilitation programs and assist you with getting the treatments you need to get stronger and healthier - like exercise, healthy eating habits, and medications. Cardiac rehabilitation has been show to help people with heart problems live longer and have better life enjoyment than people who do not go to cardiac rehabilitation. Please contact the Cardiac Rehabilitation Program at [facility] at in two weeks if you have not heard from them. <Sanjay Lee - Last Filed: 04/20/20 15:41> Patient Communication PHII Cardiac Rehab Discussed with Patient:: Yes Guide to Cardiac Rehab Given to Patient:: Yes Cardiac Rehab Facility Choice List Given to Patient:: Yes Choice Program [facility] CR PHII:: Communication Given to CR, Refer to [facility] Refer Phase II Cardiac Rehab:: Yes - referal sent waiting for staged PCI to be completed today. Orientation Date:: 04/28/20 - 12:00 noon Risk Factors/Lifestyle Family History: Family History (Last Reviewed 02/25/20 @ 13:50 by Aleyda Barber) Mother CAD (coronary artery disease) Brother CVA (cerebral vascular accident) Sister CAD (coronary artery disease) Sister Diabetes Brother Diabetes Brother CAD (coronary artery disease) Cardiac Rehabilitation Info Cardiac Rehabilitation Program Information: Cardiac Rehabilitation is important for patients like you who are recovering from a heart problem. Cardiac rehabilitation programs are recognized as integral to the continued care of the patient with coronary heart disease. The cardiac rehabilitation program is designed to optimize a patient's physical, psychological, and social functioning. Health landcare facilitator work in cardiac rehabilitation programs and assist you with getting the treatments you need to get stronger and healthier - like exercise, healthy eating habits, and medications. Cardiac rehabilitation has been show to help people with heart problems live longer and have better life enjoyment than people who do not go to cardiac rehabilitation. Please contact the Cardiac Rehabilitation Program at [facility] at in two weeks if you have not heard from them.
[2020-04-16] MEDS: 0.9% Normal Saline 1,000 ML 100 ML IV (15:48)
--- NOTE | 2020-04-16 18:03 | EKG12_ITS ---
Test Reason : Blood Pressure : / mmHG Vent. Rate : 068 BPM Atrial Rate : 068 BPM P-R Int : 146 ms QRS Dur : 086 ms QT Int : 418 ms P-R-T Axes : 052 -25 075 degrees QTc Int : 444 ms Normal sinus rhythm Leftward axis Confirmed by ORION SILVER, LEI ([id number]), health editor JESSICA ANGUIANO ([id number]) on 04/20/2020 8:05:29 AM Referred By: Lei Sears Confirmed By:LEI SEARS MD
[2020-04-16] MEDS: Carvedilol 12.5 MG Tablet PO (21:28)
[2020-04-16] MEDS: Losartan Potassium 50 MG Tablet PO (21:28)
[2020-04-16] MEDS: TICAGRELOR 90 MG TABLET PO (21:28)
[2020-04-16] MEDS: Acetaminophen 325 MG Tablet 650 MG PO (21:29)
[2020-04-16] MEDS: hydrALAZINE 50 MG Tablet PO (21:33)
[2020-04-16] MEDS: MELATONIN 3 MG TABLET PO (22:08)
[2020-04-17] VITALS (8 sets, daily range): BP systolic 147–165; BP diastolic 68–72; PULSE 62–73; RESP 16–18; TEMP 36.8–36.9; O2SAT 96–99
[2020-04-17] MEDS: Acetaminophen 325 MG Tablet 650 MG PO ×2 (03:46→11:36)
[2020-04-17] MEDS: hydrALAZINE 50 MG Tablet PO (06:40)
[2020-04-17 06:43] LABS: Hematocrit 32.4 % (37-47); Hemoglobin 10.7 g/dL (12.0-15.0); Mean Corpuscular Hgb 29.6 pg (27.0-32.0); Mean Corpuscular Volume 89.5 fL (81-99); Mean Platelet Vol. 9.5 fl (6.2-12.0); Platelet Count 299 K/mm3 (150-450); RBC Distribution Width CV 13.3 % (11.6-14.6); RBC Distribution Width SD 43.7 fl (35.1-43.9); Red Blood Count 3.62 M/mm3 (4.2-5.4); White Blood Count 4.5 K/mm3 (4.4-11.0)
[2020-04-17 07:02] LABS: ALB/GLOB Ratio 0.8 RATIO (0.9-2.4); AST(SGOT) 39 U/L (15-37); Alanine Aminotransfer ALT/SGPT 20 U/L (13-56); Alkaline Phosphatase 73 U/L (45-117); Anion Gap 5 (5-15); BUN 11 mg/dL (7-18); BUN/Creat Ratio 14.9 RATIO (10-20); Calcium,Total 8.4 mg/dL (8.5-10.1); Chloride 101 mmol/L (98-107); Creatinine, Serum 0.74 mg/dL (0.55-1.02); EST Glomerular Filtration Rate 81 mL/min (>60); Est Glom Filt Rate - Afr Amer 98 mL/min (>60); Estimated Creatinine Clearance 57.23 ml/min; Globulin 3.6 g/dL (2.2-4.2); Glucose 100 mg/dL (74-106); Potassium 3.8 mmol/L (3.5-5.1); Protein, Total 6.6 g/dL (6.4-8.2); Sodium Level 131 mmol/L (136-145)
[2020-04-17] MEDS: Aspirin E.C. 81 MG Tablet PO (08:13)
[2020-04-17] MEDS: TICAGRELOR 90 MG TABLET PO (09:45)
[2020-04-17] MEDS: Losartan Potassium 50 MG Tablet PO (09:45)
[2020-04-17] MEDS: Pantoprazole Sodium 40 MG Tablet PO (09:45)
[2020-04-17] MEDS: Carvedilol 12.5 MG Tablet PO (09:45)
--- NOTE | 2020-04-17 10:00 | EKG12_ITS ---
Test Reason : CHEST PAIN Blood Pressure : / mmHG Vent. Rate : 068 BPM Atrial Rate : 068 BPM P-R Int : 150 ms QRS Dur : 090 ms QT Int : 388 ms P-R-T Axes : 030 -30 212 degrees QTc Int : 412 ms Normal sinus rhythm Left axis deviation ST & T wave abnormality (Nonspecific) Abnormal ECG Confirmed by ORION SILVER, LEI ([id number]), subeditor JESSICA ANGUIANO ([id number]) on 04/20/2020 8:06:43 AM Referred By: Lei Sears Confirmed By:LEI SEARS MD
--- NOTE | 2020-04-17 12:25 | DCINST_ITS ---
Lifting Restrictions: 10 pounds and also avoid any pushing or pulling for 3 days after your test. Call your doctor if your incision/area has: Continuous Slow Oozing, Sudden Increased Bleeding, Increased Pain/ Swelling, Increased Redness, Foul Smelling Discharge, Swelling at the incision site Call your doctor if you observe: Fever of 101 or Higher, Coldness, Increased Pain, Shortness of breath, Dizziness, Fainting spells, Chest pain Additional Dressing/Incision Instructions:: Keep the dressing (bandage) on until the next morning. You may then shower, but do not take a tub bath for 5 days after your test. It is normal to have some tenderness and discomfort at the puncture site. Sometimes bruising also occurs. However, if pain, numbness, or coldness occurs below the puncture site (in your leg, toes, arms or fingers) call your doctor at once. You may have a small, marble sized knot at the puncture site. This is normal. Do not rub it. It will go away in 4-6 weeks. Bleeding can occur from the area where the puncture was done. Blood may spurt or drip from the site. If blood spurts, apply pressure right away to stop bleeding and call 911. Although rare, bleeding into the tissue (hematoma) can also occur. If this happens, a large, firm area goose egg under the skin will appear. If any of these occur, lie down as flat as you can and have someone apply firm pressure to the cath site with a gauze pad or a clean washcloth for 10-15 minutes. Call 911 or go to the Emergency Department. Allergies/Adverse Reactions: Allergies amlodipine Adverse Reaction (Intermediate, Verified 04/15/20 08:21) swelling Tsicawq-Nzo-Uhd Reductase Inhibitor Adverse Reaction (Verified 04/15/20 08:21) leg muscle weakness Medications to take at Discharge aspirin 81 mg tablet,delayed release 81 mg PO DAILY #1 tab 10/31/19 clonidine HCl 0.1 mg tablet 0.1 mg PO BID PRN 10/31/19 losartan 100 mg tablet 50 mg PO BID tab 01/31/20 estradiol See Rx Instructions VAGINAL .COMPLEX #42.5 g 02/25/20 Omeprazole 40 mg PO DAILY 03/17/20 hydralazine 25 mg tablet 50 mg PO TID tab 04/07/20 carvedilol 12.5 mg tablet 12.5 mg PO BID #60 tab 04/14/20 ticagrelor 90 mg tablet 90 mg PO BID #60 tab 04/14/20 Primary Care Physician: Sarabjit Tam Chi, MD [Primary Care Provider] - Test Results: Test results from this visit will be discussed in further detail at your follow- up appointment, if applicable. Please Follow Up With: Lei Jauregui MD - 2-4 weeks Proposed Discharge Date: 04/17/20 Cardiac Rehabilitation Info Cardiac Rehabilitation Program Information: Cardiac Rehabilitation is important for patients like you who are recovering from a heart problem. Cardiac rehabilitation programs are recognized as integral to the continued care of the patient with coronary heart disease. The cardiac rehabilitation program is designed to optimize a patient's physical, psychological, and social functioning. Health wound care coordinator work in cardiac rehabilitation programs and assist you with getting the treatments you need to get stronger and healthier - like exercise, healthy eating habits, and me dications. Cardiac rehabilitation has been show to help people with heart problems live longer and have better life enjoyment than people who do not go to cardiac rehabilitation. Please contact the Cardiac Rehabilitation Program at [facility] at in two weeks if you have not heard from them.
--- NOTE | 2020-04-17 12:41 | PCM.PN.BLA ---
Progress Note Discharge summary Date of admission 04/16/2020 Date of discharge: 04/17/2020 Reason for the hospital visit: For staged PCI of LAD Diagnosis: coronary artery disease Hospital course: Patient underwent PCI of the LAD without any complications. She is being discharged home in stable condition today. She will follow-up with Dr. Jauregui as an outpatient. STROKE Vital Signs/Narrative: Vital Signs Pulse 04/17/20 11:00 65
== END 2020-04-17 12:26 | disposition home or self-care (01) ==
LOC: CLSP 09:56 → PCU 15:28
PROVIDERS: Specialist; PCP Family Medicine Geriatric Medicine; Referring Provider Internal Medicine Cardiovascular Disease; Visit Provider Internal Medicine Cardiovascular Disease
DX: I25.10 Atherosclerotic heart disease of native coronary artery without angina pectoris (principal); I73.9 Peripheral vascular disease, unspecified; I16.0 Hypertensive urgency; I12.9 Hypertensive chronic kidney disease with stage 1 through stage 4 chronic kidney disease, or unspecified chronic kidney disease; N18.9 Chronic kidney disease, unspecified; I34.0 Nonrheumatic mitral (valve) insufficiency; E78.5 Hyperlipidemia, unspecified; E87.1 Hypo-osmolality and hyponatremia; K21.9 Gastro-esophageal reflux disease without esophagitis; Z79.82 Long term (current) use of aspirin; Z79.899 Other long term (current) drug therapy
CPT/HCPCS: 36415; 80048; 80053; 85027; 85610; 85730; 92928; 93005; 99152; 99153; J7030; J7040; Q9967; C1725; C1769; C1874; C1887; C1894; C9600; J2405

== ENCOUNTER → 2020-04-28 12:00 | Outpatient (CLI) | payer MEDICARE, SELFPAY ==
[2020-03-17 15:52] VITALS: BMI 34.1
[2020-04-16 15:47] VITALS: BMI 33.7
--- NOTE | 2020-04-28 12:04 | PCM.CR.ITP ---
Diagnosis - General Information Admitting Diagnosis: NSTEMI W/STAGED PCI INTERVENTION W/CORONARY STENT PLACEMENT ON 03/18/2020 AND 04/16/2020. Personal Learning Style:: Audio/Visual, Written Barriers to Learning: Hearing Impairment, Vision Impairment Stage of change r/t lifestyle modifications:: Action Gave educational material for:: Treating Heart Disease, Emotions & Heart Disease, Stress Management & Relaxation, Sleep Disorders & Heart Disease, How The Heart Works, What it means to have Heart Disease, How Coronary Artery Disease is Diagnosed, Heart Procedures, What Heart Medications Do, Risk Factors & Modifications, Living an Active Life, Nutrition - Education/Goals Individual Counseling: Initial Assessment: Abnormal Cholesterol Levels, High Blood Pressure, Overweight/Obesity, Hypertension, Sedentary Lifestyle Cardiac Rehabilitation Goals: 1. Maintain the individual as the primary focus of care. 2. To improve the patient's quality of life. 3. Identification of cardiac risk factors and provide cardiac risk factor management. 4. Enhance the psychosocial status of the patient. 5. Reconditioning enough to allow the patient to resume customary activities. 6. Control symptoms of cardiac disease Personal Goals: Initial Assessment: Improve management of stress and emotions, Improve energy level, Improve knowledge of cardiac disease, Improve muscle strength and endurance, Improve diet and eating habits (eat healthier), Control risk factors (learn risk factor modification) Scale for measuring improvement of personal goals: Enter appropriate number in Comments. 2 = Unchanged. 3 = Slightly Better. 4 = Moderate Improvement. 5 = Met my Goal - Diagnosis & Disease Process Outcomes/Goals: Pt IDs own risk factors & lifestyle modifications by Session 10, Verbalizes symptoms of angina & response by session 3., Pt independently manages Plan/Interventions: Assist Pt to ID & engage in lifestyle modification to reduce CVD risk, Instruct on individual risk factors, Review symptoms of angina & emergency actions, Review secondary diagnosis & identify educational needs. - Safety Referral to Physical Therapy: No Referral to [facility] Case Management: No Fall Risk Assessed:: Yes Assistive Devices:: None Exercise - Initial Assessment - Visit Date of Eval: 04/28/20 Session #:: 0 - PRE-CARDIAC REHAB EVAL Mets: Pre-: >5 METS for 30 minutes by discharge - Physician Prescribed Exercise Modalities: Treadmill, Airdyne, NuStep, SciFit Frequency: 3x/week for 12 weeks [36 sessions] Intensity: 60-80% of age predicted maximum heart rate reserve Target Heart Rate:: 94-123 Resting Blood Pressure: 158/76 EKG Type: SINUS RHYTHM - Outcomes & Goals Goals:: Verbalizes understanding of THR, RPE & goal METS by session 6, Documents in home exercise log/reports 30 min aerobic 5 day/wk by DC, Demonstrates accurate pulse taking by DC - Intervention & Plan Exercise Program Goals: Instruct on personal THR & RPE, Instruct on MET level & personal MET goal, Show patient to take own pulse /validate performance until accurate, Instruct on home exercise - Physical Activity Home Exercise Physical Activity - Home Exercise: Safe Exercise, Warm-up, Self-monitoring, Cool-Down, Home Exercise > 30 min Daily, Sitting Time <3 hours/daily - Outcomes & Goals Outcomes/Goals: Demonstrates correct Warm-up/exercise Cool-Down (S3) if = 2.5 METs, Verbalizes symptoms of exercise intolerance by Session 3 (S3), Demonstrate safe equipment use (S3) & follows exercise prescrition (6) Nutrition - Initial Assessment - Program Goals Nutrition Program Goals: LDL <100 optimal. 100 - 129 Near optimal. 130 - 159 Borderline High. 160 - 189 High. Total Cholesterol <200 desirable. 200 - 239 Borderline High. >/= 240 High. HDL < 40 Low >/=60 High. Triglycerides <150 desirable. <199 optimal. VlDL 5 - 40. HgbA1C <7%. BMI <25 Patient has diagnosis of Hyperlipidemia (ICD E78)?: Yes - Visit Date of Assessment:: 04/28/20 Session #:: 0 - PRE-CARDIAC REHAB EVAL - Cholesterol/Lipids Triglycerides (mg/dL): 154 - 12/24/2015 Total Cholesterol (mg/dL): 150 LDL Cholesterol (mg/dL): 129 HDL Cholesterol (mg/dL): 47 Determine presence & major risk factors that modify LDL goal: Hypertension or hypertensive medication, Low HDL cholesterol <40 mg/dL*, Family history of premature CHD in Male < 55 years: female <65 yearsFa, Age men > 45 years; women >/= 55 years Outcomes/Goals: Pt IDs own risk factors & lifestyle modifications by Session 10, Verbalizes symptoms of angina & response by session 3., Pt independently manages Intervention/Plan: Instruct on personal lipid levels & lipid goals/NCEP guidelines, Instruct on cholesterol Referral to dietitian:: Yes - MEDICAL NUTRITION THEREAPY & WHY WEIGHT PROGRAM - Diabetes (Other Core Measures) Diabetes Type: Not Applicable - Weight Mgt (Other Care) Not Applicable: No Height: 4 ft 11 in Weight:: 169 lb BMI: 34.1 Diagnosis Overweight/Obesity BMI> 30% ICD-10 E66: Yes Diagnosis High BMI/Morbid Obesity BMI> 35% ICD-10 Z68: No Outcomes/Goals: Pt sets, maintains & shows weight loss goal & trend during rehab Intervention/Plan: Instruct on ideal BMI & set weight loss goal w/patient, Assist pt to ID & incorporate diet changes for weight loss by S9, Refer to Structured Weight Loss program as appropriate, Encourage goal of using 250-300dcal per session for weight loss - Healthy Eating Habits Will attend diet classes:: Yes Outcomes/Goals:: Consume diet rich in vegs,fruits,whole grain/high fiber,fish,lean meat, Limit sat/trans fats,cholesterol & added salts & sugars Intervention/Plan:: Assess current eating habits - Education Gave educational materials for:: Healthy eating Medical - Initial Assessment - Visit Date of Eval: 04/28/20 Session #:: 0 - PRE-CARDIAC REHAB - Medication Compliance Preventative Medication(s):: Aspirin, Ticagrelor/P2Y12 inhibitor, Statin/lipid, Beta juanpablo H/O mental health issues: depression, anxiety, or addiction?: No Doesn?t believe in the benefits of treatment?: No Believes medications are unnecessary or harmful?: No Has a concern about medication side effects?: No Expresses concern over the cost of medications?: No Outcomes/Goals: Verbalizes medications,desired effect & common side effects @ DC, Pt self-reports following medication regimen, Keeps card in wallet w/medications listed by DC Interventions/plans: Instruct on medication effects & side effects, Review medication list w/patient every two weeks, Instruct importance of taking meds as ordered & assist problem solving - Tobacco Use Tobacco Use: Non-smoker - Hypertension Hypertension Diagnosis:: Hypertension ICD-10 I10 Resting Blood Pressure:: 158/76 - STAGE II HYPERTENSION W/MEDICATIONS [place] [employer] Hypertension Guidelines: [place] [employer] Hypertension Guidelines. Normal BP Less than 120/80. Elevated BP 120/80. Hypertension Stage 1: BP 130-139/80-89. Hypertesnion Stage 2: BP 140 or higher/90 or higher. Hypertension Crisis: BP higher than 180/120 Outcomes/Goals: Able to verbalize/achieve optimal blood pressure <130/80, Incorporates diet changes & exercise for blood pressure control by DC Interventions/plan: Instruct on optimal blood pressure, hypertension & medications, Instruct on effects of sodium, alcohol, stress, exercise &hypertension - Tobacco Cessation Referral Smoking Cessation Referral:: No Individual Education/Counseling:: No Education Schedule Given:: Yes Psychosocial - Initial Assess - VIsit Date of Eval: 04/28/20 Session #:: 0 - PRE-CARDIAC REHAB Not Applicable: Yes - Target Goals Target Goals: Assess presence or absence of depression. Using a valid screening tool, maximizes coping skills. Positive support system - Psychosocial Test Tool Used:: Sprout QOL Cardiac, PHQ-9 Questionnaire phq-9 Severity: Severity. 1-4 Minimal Depression. 5-9 Mild Depression. 10-14 Moderate Depression. 15-19 Moderately Sever Depression. 20-27 Severe Depression. Rule: - Referral to Behavioral Health PS - Interventions: Yes Referral to Physician if PHQ-9 if score is 5-9: - Patient PHQ score 12 indicates Moderate Depression, Yes Attend Stress Management Classes, No Referral to Behavioral Health if PHQ-9 score >9:, No Referral to [facility] - Outcomes/Goals: See list Psychosocial Outcomes/Goals:: ID's personal stressors & 2 strategies to manage stress by discharge - Intervention/Plan: See List Interventions/Plan:: Assess stressors,coping strategies & signs of derpression on admission, Instruct/assist pt to develop coping & personal stress Mgt strategies, Instruct patient to recognize signs & symptoms of depression, Instruct patient to recog Patient Health Questionnaire Initial Assessment 1. Little interest or pleasure in doing things: More than half the days 2. Feeling down, depressed, or hopeless: Several days 3. Trouble falling or staying asleep, or sleeping too much: More than half the days 4. Feeling tired or having little energy: More than half the days 5. Poor appetite or overeating: More than half the days 6. Feeling bad about yourself -- or that you are a failure or have let yourself or your family down: Several days 7. Trouble concentrating on things, such as reading the newspaper or watching television: More than half the days 8. Moving or speaking so slowly that other people could have noticed. Or the opposite - being so fidgety or restless that you have been moving around a lot more than usual: Not at all 9. Thoughts that you would be better off , or of hurting yourself in some way: Not at all How difficult have these problems made it for you to do your work, take care of things at home, or get along with other people?: Somewhat difficult Total Score: 12 DANNA-Q SV Test - Statements CAD is a disease of the arteries in the heart: False Examples of risk factors for heart disease: True Angina is chest pain or discomfort: True The benefits of resistance training include: I Don't Know Eating more meat and dairy products: False Anti-platelet medications such as aspirin are important: True The only effective way to manage stress: False An exercise warm-up slowly increases heart rate: I Don't Know Prepared, processed foods usually have high sodium: True Depression is common after a heart attack: True The statin medications lower cholesterol: True To control blood pressure, lower the amount of sodium: True If someone gets chest discomfort during walking: False Transfats are partially hydrogenated vegetable oils: True Sleep apnea that is not treated increases the risk: True To control cholesterol, one should become a vegetarian: False Someone knows if he/she is exercising at the right level: True Diabetes cannot be prevented with exercise & health eating: True Stress is a large risk for heart attack: True A diet that can help lower blood pressure is rich in: True - Total Score Total Correct Responses: 16 Self-Efficacy Initial Assessment We would like to know how confident you are in doing certain activities. Please select your confidence level for:: Select your confidence level for the following using the scale 1-10 where 1 is not at all confident and 10 is totally confident. Your score is the average of all 6 responses. Fatigue: How confident are you that you can keep the fatigue caused by your disease from interfering with the things you want to do? Select Number: 5 Physical Discomfort or Pain: How confident are you that you can keep the physical discomfort or pain of your disease from interfering with the things you want to do? Select Number: 5 Emotional Distress: How confident are you that you can keep the emotional distress caused by your disease from interfering with the things you want to do? Select Number: 4 Other Symptoms or Health Problems: How confident are you that you can keep other symptoms or health problems from interfering with the things you want to do? Select Number: 4 Different Tasks and Activities: How confident are you that you can do the different tasks and activities needed to manage your health condition so as to reduce your need to see a doctor? Select Number: 3 Medication: How confident are you that you can do things other than just taking medication to reduce how much your illness affects your everyday life? Select Number: 4 Total Score:: 4 Nutrition Survey - Nutrition Survey Instructions Scoring Instructions: Scoring is as follows: Yes = 1 points. No = 0 point. Patient score that is >/=12 is considered to be at potential nutritional risk and could benefit from a referral to a registered dietitian. - Nutrition Survey Initial Have you lost >10 lbs over the past 2 months without trying?: No Are you following a special diet at home for diabetes, low fat, or low salt?: No Are you interested in meeting with a dietitian for help understanding your diet?: No Do you eat less than 3 meals a day?: Yes Do you eat fatty meats (felix, sausage, ribs, etc), fried foods, desserts, large amounts of salad dressings, margarine, butter, or cheese most days?: Yes Do you have food allergies? [Enter types in comment field]: No Do you eat in restaurants more than 3 times a week?: No Do you season food with salt, seasoning salt, or garlic salt?: Yes Do you used canned, boxed, frozen meals, or soups, seasoning packets?: Yes - Refer to Nutritional Services for weight control/loss and medical nutritional therapy for hypertension/hyperlipidemia. Total Score:: 4
--- NOTE | 2020-04-28 12:05 | PCM.CR.HP2 ---
CR - History & Physical - General Arrival date:: 04/28/20 Arrival time:: 11:50 Date of Referral:: 03/18/20 - PLANNED STAGED INTERVENTION/STENT Date of CR Evaluation:: 04/28/20 Referring Physician: ORION Primary Diagnosis: PCI W/CORONARY STENTING - History of Present Cardiac Event Onset Date: Enter Onset Date of cardiac illnesses in Comment field below Acute Myocardial Infarction within 12 months:: Yes - NSTEMI 03/18/2020 PTCA or coronary stenting:: Yes - 03/18/2020 and 04/16/2020 Type of Symptoms:: SHORTNESS OF BREATH ON EXERTION, CHEST PRESSURE/PAIN - Medications Home Medications: Ambulatory Orders Medication Instructions Recorded aspirin 81 mg tablet,delayed 81 mg PO DAILY #1 tab 10/31/19 release clonidine HCl 0.1 mg tablet 0.1 mg PO BID PRN 10/31/19 losartan 100 mg tablet 50 mg PO BID tab 01/31/20 estradiol See Rx Instructions VAGINAL 02/25/20 .COMPLEX #42.5 g Omeprazole 40 mg PO DAILY 03/17/20 hydralazine 25 mg tablet 50 mg PO TID tab 04/07/20 carvedilol 12.5 mg tablet 12.5 mg PO BID #60 tab 04/14/20 ticagrelor 90 mg tablet 90 mg PO BID #60 tab 04/14/20 - Allergies Allergies/Adverse Reactions: Allergies amlodipine Adverse Reaction (Intermediate, Verified 04/15/20 08:21) swelling Mdnvkze-Lyf-Xhl Reductase Inhibitor Adverse Reaction (Verified 04/15/20 08:21) leg muscle weakness - Sleep Disorder Evaluation Hx of Sleep Apnea: Yes Do you snore loudly (louder than talking or can be heard through closed doors)?: Yes Do you often feel tired/ fatigued/ sleepy during daytime?: Yes Has anyone observed you stop breathing during sleep?: No History of Hypertension (for STOP score): Yes STOP Results: Positive Advanced Directives - Advanced Directives Power of Heavy Truck Driver: Yes Living Will: Yes Advance Directives Information Provided: No Advance Directives on File: Yes - Believes they are on file. DNR Order?:: Yes Additional Comments:: She brought her DNR Order with her to her last PCI intervention and believes they were scanned to her EMR. - MOLST See MOLST form: No Past Medical History - Covid-19 Screening Fever: No Unexplained muscle aches: No Current respiratory symptoms: No Upper respiratory infections symptoms: No Gastro-intestinal symptoms: Yes - H/O GERD Izc-Xzdg-Lgcbjz symptoms: No Has tested positive for COVID-19 in last 30 days: No Had contact w/person w/symptoms or Covid-19 (+) last 14 days: No Has High Risk Exposures ID'd by Health dept/Inf Control team: No 65 years or older:: Yes Lives in Assisted Living facility:: No Has a chronic lung disease or moderate to severe asthma:: No Has a serious heart condition:: No Immunocompromised:: No Severely obese (Body Mass Index of 40 or higher):: No Diabetic:: No Has chronic kidney disease undergoing dialysis:: No Has liver disease:: No - Past Medical Illness Medical History: Past Medical History (Last Updated 04/16/20 @ 17:56 by Leyla Pickard) Presence of stent in coronary artery (Chronic) Onset Date: ~04/16/20 Z95.5 Successful PTCA/ARIADNA proximal and mid OM1 per cath 03/18/20; Successful ARIADNA to mLAD 04/16/20 Atherosclerotic heart disease of [place] coronary artery without angina pectoris (Chronic) I25.10 Non-rheumatic mitral regurgitation (Chronic) I34.0 CKD (chronic kidney disease) (Chronic) N18.9 Vaginal wall prolapse (Acute) N81.10 Pessary maintenance (Chronic) Z46.89 Essential hypertension (Chronic) I10 History of gastroesophageal reflux (GERD) (Chronic) Z87.19 Syncope due to orthostatic hypotension (Chronic) I95.1 Hyponatremia (Acute) E87.1 Syncope and collapse (Suspected) R55 HLD (hyperlipidemia) (Chronic) E78.5 Near syncope (Chronic) Anxiety and depression F41.8 CVA (cerebral vascular accident) I63.9 - Past Surgical History Surgical History: Past Surgical History (Last Updated 03/18/20 @ 15:27 by Leyla Pickard) Presence of coronary angioplasty implant and graft Onset Date: ~03/18/20 Z95.5 Successful PTCA/ARIADNA proximal and mid OM1 per cath 03/18/20 History of bilateral cataract extraction Z98.41, Z98.42 Surgical History: no surgical history - Family History Summary Family History: Family History (Last Reviewed 02/25/20 @ 13:50 by Aleyda Barber) Mother CAD (coronary artery disease) Brother CVA (cerebral vascular accident) Sister CAD (coronary artery disease) Sister Diabetes Brother Diabetes Brother CAD (coronary artery disease) Social History - Smoking History Smoking Status: Never smoker Hx Tobacco Use: No Hx Smoking Exposure: No - Alcohol Use Alcohol Usage: No - Substance Abuse Hx Substance Use: No - Occupation Occupation (List type of work in comments):: Retired - Hobbies, Recreation, Social Activities Hobbies: Watch TV - watch way to much TV! Recreational Activities: I am able to engage in most, but not all activities - still having issues with running sweeper due to arms aching still. Social Environment - Status Marital Status: - Current Living Arrangements Living Environment:: Alone - Children Do any of your children live nearby?: No - Safety Do you feel safe in your surroundings?: Yes - Assistance Do you need any assistance at home?: NO Review of Systems - Review of Systems Hints: Right click = Denies ([place]). Left click = Reports ([place]) Review of Present Symptoms: Reports: Shortness of Breath with Exertion - notice some shortness of breath still walking long distances such as hospital hallways., Fatigue, Appetite - Normal, Appetite - Special Diet - low sodium, Sleep - Normal. Denies: Shortness of Breath at Rest, Dizziness/Lightheadedness - some previous issue with near syncope prior to PCI intervention noted., Heart Arrhythmia/Irregularities, Sexual Changes - Pain Is Patient Pain Free?: Yes Pain Location: upper extremity - arms, noticable bruising from hematoma following PCI procedure Pain Level: 7/10 - taking tylenol for pain. Risk Factor Assessment - Chief Complaint Chief Complaint: THE PATIENT IS A 75/F OF [place] [place] WHO PRESENTS TO CARDIAC REHAB TODAY FOLLOWING RECENT STAGED PCI INTERVENTION WITH CORONARY STENT PLACEMENT ON 03/18/2020 AND AGAIN ON 04/16/2020. - Vital Signs Temperature: 97.2 F Respiratory Rate: 16 Pulse Ox: 98 Nailbeds:: 158/76 - Pulse Pulse Rate: 70 Pulse Rhythm: Regular - Hypertension Blood Pressure Sitting - Left Arm: 158/76 - Stress Stress: Recent - Blood Cholesterol/Lipids Total Cholesterol (mg/dL) Goal = less than 200 mg/dL: 150 - 12/24/2015 HDL Cholesterol (mg/dL) Goal = less than 40 mg/dL: 47 LDL Cholesterol (mg/dL) Goal = less than 70 mg/dL: 129 Triglycerides (mg/dL) Goal = less than 150 mg/dL: 154 - Diabetes Nutrition Referral for Diabetes: No - Obesity Height: 4 ft 11 in Weight:: 169 lb Weight in Pounds: 169.0 lbs Weight Source: Standing Scale Body Mass Index (BMI): 34.1 Nutritional Referral for Obesity: Yes - Physical Inactivity Physical Inactivity: None - Risk Stratification Risk Guidelines: Lowest Risk: Risk Factor for Smoking, Risk Factor for Diabetes, Risk Factor for Depression, Moderate Risk: Risk Factor for Dyslipidemia, Risk Factor for Hypertension, Risk Factor for Sedentary Lifestyle, Highest Risk: Risk Factor for Obesity - For Smoking Smoking Risk Guidelines: Smoking Low Risk: None or quit greater than 6 months ago. Smoking Moderate Risk: Smoker or quit 6 months or less ago. Smoking High Risk: Smoker - For Dyslipidemia Dyslipidemia Risk Guidelines: Low Risk: Moderate Risk: High Risk: 15-25% fat 25.1-29% fat >/= 30% fat. <7% sat fat 7-9% sat fat >9% sat fat. <150 mg chol 150-299 mg chol >/= 300 mg chol. LDL <100 LDL 100-129 LDL >/= 130. Chol/HDL ratio <5.0 Chol/HDL ratio 5.0-6.0 Chol/HDL ratio >6.0. Triglycerides <100 Triglycerides 100-149 Triglycerides >/= 150 - For Diabetes Mellitus Diabetes Risk Guidelines: Diabetes Low Risk: HgA1c <6.5% and/or FBG <120. Diabetes Moderate Risk: HgA1c 6.6-7.9% and/or FBG 120-180. Diabetes High Risk: HgA1c >/= 8% and/or FBG >180 - For Obesity/Overweight Obesity/Overweight Risk Guidelines: Obesity Low Risk: BMI <25.0. Obesity Moderate Risk: BMI 25-29.9. Obesity High Risk: BMI >/= 30.0 - For Hypertension Hypertension Risk Guidelines: Hypertension Low Risk: Systolic <120 and Diastolic <80. Hypertension Moderate Risk: Systolic 120-139 and Diastolic 80-89. Hypertension High Risk: Systolic >/= 140 and Diastolic >/= 90 - For Sedentary Lifestyle Sedentary Lifestyle Risk Guidelines: Sedentary Lifestyle Low Risk: >/= 1,500 kcal/week. Sedentary Lifestyle Moderate Risk: 700-1,499 kcal/week. Sedentary Lifestyle High Risk: < 700 kcal/week - For Depression Depression Risk Guidelines: Depression Low Risk: Not clinically depressed. Depression Moderate Risk: Mildly depressed. Depression High Risk: Clinically depressed - Family History Family History: Family History (Last Reviewed 02/25/20 @ 13:50 by Aleyda Barber) Mother CAD (coronary artery disease) Brother CVA (cerebral vascular accident) Sister CAD (coronary artery disease) Sister Diabetes Brother Diabetes Brother CAD (coronary artery disease) Motivation - Motivation to Participate On a scale of 1 to 10, how prepared are you to commit to attending program?: 5 - I'm one to give up easy. What do you see as barriers to successfully being able to complete the program?: stamina, motivation What do you see as the benefits of succesfully completing the program? In other words, what do you hope to get out of participating in the program?: being able to get around better, increased energy level. Are there issues you are dealing with that will interfere with completing the program?: arms still aching from hematoma noticable bruising Do you have a spouse or signficant other, family or friends who will help support you to complete the program?: yes, sister/friends neighbor.
[2020-04-28 12:27] VITALS: BP 158/76; BMI 34.1
[2020-04-28 12:37] VITALS: BP 158/76; PULSE 70; RESP 16; TEMP 36.2; O2SAT 98; BMI 34.1
== END ==
PROVIDERS: PCP Family Medicine Geriatric Medicine; Referring Provider Internal Medicine Cardiovascular Disease; Visit Provider Internal Medicine Cardiovascular Disease
DX: Z95.5 Presence of coronary angioplasty implant and graft (principal); I12.9 Hypertensive chronic kidney disease with stage 1 through stage 4 chronic kidney disease, or unspecified chronic kidney disease; N18.9 Chronic kidney disease, unspecified; Z87.19 Personal history of other diseases of the digestive system

== ENCOUNTER 2020-05-01 15:11 | Emergency (ER) | payer MEDICARE, SELFPAY ==
[2020-04-28 12:27] VITALS: BMI 34.1
[2020-04-29 10:09] VITALS: BMI 33.7
[2020-05-01 15:12] VITALS: BP 203/87; PULSE 72; RESP 18; TEMP 36.6; O2SAT 99; BMI 33.7
--- NOTE | 2020-05-01 15:27 | RAD_ITS ---
STUDY: X-RAY - RIGHT KNEE REASON FOR EXAM: Female, 75 years old. RIGHT LEG/KNEE PAIN FOR WEEKS. TECHNIQUE: 4 view(s) of the knee. COMPARISON: Right knee x-ray dated April 09, 2020 FINDINGS: Normal visualized distal femur. Normal visualized proximal tibia and fibula. Normal proximal tibiofibular articulation. There is no demonstrated fracture. Normal medial femorotibial compartment. Normal lateral femorotibial compartment. There is mild degenerative arthrosis of the patellofemoral articulation. There is no demonstrated joint effusion. There are atherosclerotic calcifications. RAD/Knee 4 or More Views IMPRESSION: Degenerative arthrosis. Electronically Signed: Dalton Lazo MD at 16:58 EDT , Service support ,
--- NOTE | 2020-05-01 15:34 | ED.VIS.GEN ---
History of Present Illness Chief Complaint: Lower Extremity Injury Informant: Patient Onset: Today Context: Sudden Onset Timing: Continuous Current Severity: Moderate Maximum Severity: Moderate Narrative: Patient is a 75-year-old female with history of hypertension the presents to the emergency department with right knee pain. Patient states she is been having pain intermittently in the knee for the past month. She did see her primary care about this. She states that she had outpatient x-rays but was never told what they showed. She states that today, she was getting out of the car, planted, and felt like something popped in the back of her leg. Since then, she is had a difficult time bearing weight. She did not fall to the ground. She denies other injury. She is otherwise been in her normal state of health. Prior similar symptoms: Yes Recent Illness/Hospitalization: No Past Medical History - Allergies and Home Meds Allergies/Adverse Reactions: Allergies amlodipine Adverse Reaction (Intermediate, Verified 05/01/20 15:14) swelling Ddaqslg-Gjc-Udn Reductase Inhibitor Adverse Reaction (Verified 05/01/20 15:14) leg muscle weakness Primary Care Physician: Sarabjit Tam Chi, MD [Primary Care Provider] - Prior records reviewed: Yes Past Medical History: - - Hypertension, coronary vascular disease Surgical History: no surgical history Smoking Status: Never smoker - Family History Maternal Family History: Family History (Last Reviewed 04/29/20 @ 10:11 by Leyla Pickard) Mother CAD (coronary artery disease) Brother CVA (cerebral vascular accident) Sister CAD (coronary artery disease) Sister Diabetes Brother Diabetes Brother CAD (coronary artery disease) Family History: Reports: Heart Disease Sibling Family History: Family History (Last Reviewed 04/29/20 @ 10:11 by Leyla Pickard) Mother CAD (coronary artery disease) Brother CVA (cerebral vascular accident) Sister CAD (coronary artery disease) Sister Diabetes Brother Diabetes Brother CAD (coronary artery disease) Family History: Reports: Heart Disease Review of Systems General: Denies: Chills, Fever, Sweats Eyes: Denies: Visual changes - bilaterally, Diplopia ENT: Denies: Rhinorrhea, Sore throat Cardiovascular: Denies: Chest pain, Palpitations Respiratory: Denies: Dyspnea, Cough, Dyspnea on exertion Gastrointestinal: Denies: Abdominal pain, Nausea, Vomiting, Diarrhea, Melena, Hematochezia Genitourinary: Denies: Dysuria, Hematuria, Frequency Musculoskeletal: Denies: Back pain, Extremity Pain Skin: Denies: Rash, Wounds Neurological: Denies: Headache, Weakness, Numbness Physical Exam Vital Signs/Narrative: Vital Signs Temp Pulse Resp BP Pulse Ox 05/01/20 15:12 97.8 F 72 18 203/87 H 99 Inital Vital Signs reviewed: Yes General: Well nourished, Well developed, No Acute Distress Head: Normocephalic, Atraumatic Eyes: Perrl, EOMI ENT: Moist mucous membranes, No rhinorrhea Neck: Supple, Nontender Cardiovascular: Regular rate, Regular rhythm, No murmurs Respiratory: No distress, CTA bilaterally, Chest nontender Abdomen: Soft, Nontender, Nondistended, Normal bowel sounds Back: Nontender, Normal Inspection Extremities: No edema, Tenderness - Tenderness in the posterior aspect of the right knee, more proximal than the popliteal fossa. Extension is preserved. No gross laxity. Skin: Normal color, No rash Neurological: Alert, Oriented x3, Cranial nerves II-XII grossly intact, Normal Strength, Normal Sensation Psychological: Normal affect, Normal Mood Diagnostic/Tx/Re-eval Clinical Impression(s) from Imaging Studies Knee X-Ray 05/01/20 15:27 IMPRESSION: Degenerative arthrosis. Electronically Signed: Dalton Lazo MD at 16:58 EDT , Service support , Femur X-Ray 05/01/20 15:40 IMPRESSION: Normal x-ray examination of the femur. Electronically Signed: Dalton Lazo MD at 17:01 EDT , Service support , - Medical Decision Making The patient presents with pain in the posterior thigh near the knee joint. Her pulses are normal. She states she planted and felt something pop. Clinically, I do feel that this is most likely a hamstring tear. I did obtain plain films which are unremarkable. The patient was given oral analgesics. She is having a difficult time bearing weight because of her pain. The patient was placed in a knee immobilizer for comfort. She was able to get in and out of bed and ambulate. At this point, the patient be discharged home with analgesics. Impression 1. Right hamstring strain ED Disposition - Plan for ED Patient: Instructions: ED Sprain Knee Prescriptions: Hydrocodone Bitart/Apap 5-325 [[place] 5MG-325MG] 1 tab PO Q6H PRN PRN 3 Days #10 tab PRN Reason: Pain Prescription Printed Referrals: Sarabjit Tam Chi, MD [Primary Care Provider] -
--- NOTE | 2020-05-01 15:40 | RAD_ITS ---
STUDY: X-RAY - RIGHT FEMUR REASON FOR STUDY: Female, 75 years old. RIGHT LEG PAIN FOR WEEKS. TECHNIQUE: 4 view(s) of the femur. COMPARISON: Right knee x-ray dated May 01, 2020 FINDINGS: Normal visualized femur. Normal visualized soft tissue structure. There are atherosclerotic vascular calcifications. There is no demonstrated fracture or destructive process. RAD/Femur Min 2 Views IMPRESSION: Normal x-ray examination of the femur. Electronically Signed: Dalton Lazo MD at 17:01 EDT , Service support ,
[2020-05-01] MEDS: hydrALAZINE 50 MG Tablet PO (16:37)
[2020-05-01 16:38] VITALS: BP 212/94; PULSE 80; RESP 18; O2SAT 98
[2020-05-01] MEDS: HYDROcodone Bitartrate/Apap 5/325 Tablet PO (17:28)
--- NOTE | 2020-05-01 17:53 | CM.ED ---
Social Work Consult: Discharge Planning Informant: Nursing staff. Chief Complaint: Patient with pop in patient knee. Marital/Social History: . Patient spouse 3 years ago. Advanced Care Planning: Patient Niece Chantelle De Oliveira is Health Care POA. PCP: Dr. Tam Living Arrangements: Lives alone in a 1-story condo with no steps to enter. Support/Resources: Family. Patient also reports to have support from a very close neighbor. Transportation: Patient drives self and denies any concerns. Patient reports that family can provide transportation to home today. DME: Patient reports to have walker, cane, w/c, grab bars, and shower chair. Patient denies having a medical alert system. Patient open to this social science instructor providing patient with medical alert system information. Resource provided to patient. Prior level of functioning: Independent with mobility, ADL's, IADL's. Assessment: Met with patient in room. Introduced self and social science instructor role. Patient agreeable to speak with this social science instructor. Patient remembered this social science instructor from past experiences of working with patient spouse. Patient pleasant and engaged in conversation. Patient reports to now think I can go home. Originally patient was reporting to be unable to ambulate or care for self. Patient states to this social science instructor to have gotten up from the bedside commode on own and to think I can do it. Patient reports that family/neighbor will be checking in with patient in the home. Patient denies any needs/concerns outside medical alert resources, that this social science instructor provided for patient. Patient reports to have been speaking with assisted living Jonathan and Balbir as I might need to transition to assisted living. Active support and listening provided. Updated medical team on above. Demarcus GUTIERREZ, DARLENE
== END 2020-05-01 18:11 | disposition home or self-care (01) ==
LOC: ED 16:29
PROVIDERS: Emergency Provider Emergency Medicine; PCP Family Medicine Geriatric Medicine
DX: S76.311A Strain of muscle, fascia and tendon of the posterior muscle group at thigh level, right thigh, initial encounter (principal); X58.XXXA Exposure to other specified factors, initial encounter; Y93.89 Activity, other specified; Y92.810 Car as the place of occurrence of the external cause; Y99.9 Unspecified external cause status; M17.11 Unilateral primary osteoarthritis, right knee; I25.10 Atherosclerotic heart disease of native coronary artery without angina pectoris; I10 Essential (primary) hypertension
CPT/HCPCS: 73552; 73564; 99282

== ENCOUNTER 2020-05-04 06:20 | Outpatient (RCR) | payer MEDICARE, SELFPAY ==
[2020-04-28 12:27] VITALS: BMI 34.1
[2020-04-28 12:37] VITALS: BMI 34.1
== END 2020-06-01 23:59 ==
LOC: CR 06:20
PROVIDERS: PCP Family Medicine Geriatric Medicine; Referring Provider Internal Medicine Cardiovascular Disease; Visit Provider Internal Medicine Cardiovascular Disease
DX: I25.10 Atherosclerotic heart disease of native coronary artery without angina pectoris (principal); Z95.5 Presence of coronary angioplasty implant and graft
CPT/HCPCS: 93798

== ENCOUNTER → 2020-05-13 15:47 | Outpatient (CLI) | payer MEDICARE, SELFPAY ==
[2020-04-28 12:27] VITALS: BMI 34.1
[2020-05-01 15:12] VITALS: BMI 33.7
== END ==
PROVIDERS: PCP Family Medicine Geriatric Medicine; Visit Provider Family Medicine Geriatric Medicine
DX: N39.0 Urinary tract infection, site not specified (principal)
CPT/HCPCS: 87086

== ENCOUNTER → 2020-06-01 10:54 | Outpatient (CLI) | payer MEDICARE, SELFPAY ==
[2020-04-28 12:27] VITALS: BMI 34.1
[2020-06-01 12:06] LABS: Absolute Lymphocyte Count 1.64 X10^3/uL (0.83-4.51); Absolute Neutrophil Count 4.2 X10^3/uL (2.0-7.7); Basophil# 0.02 X10^3/uL; Basophil% 0.3 % (0-1); Eosinophil# 0.02 X10^3/uL; Eosinophils% 0.3 % (0-5); Hematocrit 36.2 % (37-47); Hemoglobin 11.7 g/dL (12.0-15.0); Lymphocyte # 1.64 X10^3/ul (4.0); Lymphocyte % 23.6 % (19-41); Mean Corp Hgb Conc 32.3 g/dL (32-36); Mean Corpuscular Hgb 29.7 pg (27.0-32.0); Mean Corpuscular Volume 91.9 fL (81-99); Mean Platelet Vol. 9.9 fl (6.2-12.0); Monocyte# 1.06 X10^3/uL; Monocyte% 15.3 % (0-10); NRBC Flagged by Analyzer 0 % (0-5); Neutrophil # 4.17 X10^3/uL (2.7-7.7); Neutrophil % 59.9 % (47-70); Platelet Count 400 K/mm3 (150-450); RBC Distribution Width CV 13.9 % (11.6-14.6); RBC Distribution Width SD 47.2 fl (35.1-43.9); Red Blood Count 3.94 M/mm3 (4.2-5.4)
[2020-06-01 12:19] LABS: ALB/GLOB Ratio 0.8 RATIO (0.9-2.4); AST(SGOT) 25 U/L (15-37); Alanine Aminotransfer ALT/SGPT 31 U/L (13-56); Albumin, Serum 3.5 g/dL (3.2-5.0); Alkaline Phosphatase 90 U/L (45-117); Anion Gap 6 (5-15); BUN 20 mg/dL (7-18); BUN/Creat Ratio 24.7 RATIO (10-20); Calcium,Total 8.6 mg/dL (8.5-10.1); Chloride 99 mmol/L (98-107); Creatinine, Serum 0.81 mg/dL (0.55-1.02); EST Glomerular Filtration Rate 73 mL/min (>60); Est Glom Filt Rate - Afr Amer 89 mL/min (>60); Globulin 4.3 g/dL (2.2-4.2); Glucose 69 mg/dL (74-106); Protein, Total 7.8 g/dL (6.4-8.2); Sodium Level 129 mmol/L (136-145); Thyroid Stim Hormone (TSH) 1.14 uIU/mL (0.358-3.74)
[2020-06-01 12:23] LABS: Vitamin D,25 Hydroxy 27.3 ng/mL
== END ==
PROVIDERS: PCP Family Medicine Geriatric Medicine; Visit Provider Family Medicine Geriatric Medicine
DX: I10 Essential (primary) hypertension (principal); E55.9 Vitamin D deficiency, unspecified
CPT/HCPCS: 36415; 80053; 82306; 84443; 85025

== ENCOUNTER → 2020-06-04 12:04 | Outpatient (CLI) | payer MEDICARE, SELFPAY ==
[2020-04-28 12:27] VITALS: BMI 34.1
[2020-06-04 12:58] LABS: Urine Sodium 62 mmol/L (Not Establ.)
[2020-06-04 13:11] LABS: Osmolality, Serum 260 mOsm/KG (280-301)
[2020-06-04 13:12] LABS: Anion Gap 7 (5-15); BUN 14 mg/dL (7-18); BUN/Creat Ratio 18.6 RATIO (10-20); Chloride 97 mmol/L (98-107); Creatinine, Serum 0.75 mg/dL (0.55-1.02); EST Glomerular Filtration Rate 79 mL/min (>60); Est Glom Filt Rate - Afr Amer 96 mL/min (>60); Glucose 90 mg/dL (74-106); Osmolality, Urine 186 mOsm/KG; Potassium 4.1 mmol/L (3.5-5.1); Sodium Level 125 mmol/L (136-145)
== END ==
PROVIDERS: PCP Family Medicine Geriatric Medicine; Visit Provider Family Medicine Geriatric Medicine
DX: D50.9 Iron deficiency anemia, unspecified (principal); E86.0 Dehydration
CPT/HCPCS: 36415; 80048; 83930; 83935; 84300

== ENCOUNTER → 2020-06-11 13:39 | Outpatient (CLI) | payer MEDICARE, SELFPAY ==
[2020-04-28 12:27] VITALS: BMI 34.1
[2020-06-11 14:53] LABS: Anion Gap 4 (5-15); BUN 12 mg/dL (7-18); BUN/Creat Ratio 15.8 RATIO (10-20); Calcium,Total 8.5 mg/dL (8.5-10.1); Chloride 92 mmol/L (98-107); Creatinine, Serum 0.76 mg/dL (0.55-1.02); EST Glomerular Filtration Rate 79 mL/min (>60); Est Glom Filt Rate - Afr Amer 95 mL/min (>60); Glucose 89 mg/dL (74-106); Potassium 4.4 mmol/L (3.5-5.1); Sodium Level 124 mmol/L (136-145)
== END ==
PROVIDERS: PCP Family Medicine Geriatric Medicine; Visit Provider Family Medicine Geriatric Medicine
DX: E87.1 Hypo-osmolality and hyponatremia (principal)
CPT/HCPCS: 36415; 80048

== ENCOUNTER → 2020-06-15 15:31 | Outpatient (CLI) | payer MEDICARE, SELFPAY ==
[2020-04-28 12:27] VITALS: BMI 34.1
[2020-06-15 17:41] LABS: Urine Sodium 45 mmol/L (Not Establ.)
[2020-06-15 17:47] LABS: Anion Gap 8 (5-15); BUN 14 mg/dL (7-18); BUN/Creat Ratio 19.2 RATIO (10-20); Calcium,Total 8.4 mg/dL (8.5-10.1); Chloride 91 mmol/L (98-107); Creatinine, Serum 0.73 mg/dL (0.55-1.02); EST Glomerular Filtration Rate 82 mL/min (>60); Est Glom Filt Rate - Afr Amer 100 mL/min (>60); Glucose 87 mg/dL (74-106); Potassium 4.1 mmol/L (3.5-5.1); Sodium Level 123 mmol/L (136-145)
[2020-06-15 21:58] LABS: Osmolality, Serum 262 mOsm/KG (280-301); Osmolality, Urine 376 mOsm/KG
== END ==
PROVIDERS: PCP Family Medicine Geriatric Medicine; Visit Provider Family Medicine Geriatric Medicine
DX: E87.1 Hypo-osmolality and hyponatremia (principal)
CPT/HCPCS: 36415; 80048; 83930; 83935; 84300

== ENCOUNTER → 2020-07-29 13:42 | Outpatient (CLI) | payer MEDICARE, SELFPAY ==
[2020-04-28 12:27] VITALS: BMI 34.1
[2020-07-29 14:30] LABS: Absolute Lymphocyte Count 1.51 X10^3/uL (0.83-4.51); Absolute Neutrophil Count 4.1 X10^3/uL (2.0-7.7); Basophil# 0.02 X10^3/uL; Basophil% 0.3 % (0-1); Eosinophil# 0.03 X10^3/uL; Eosinophils% 0.5 % (0-5); Hematocrit 34.3 % (37-47); Hemoglobin 11.4 g/dL (12.0-15.0); Lymphocyte # 1.51 X10^3/ul (4.0); Lymphocyte % 24.2 % (19-41); Mean Corp Hgb Conc 33.2 g/dL (32-36); Mean Corpuscular Hgb 30.4 pg (27.0-32.0); Mean Corpuscular Volume 91.5 fL (81-99); Mean Platelet Vol. 9.3 fl (6.2-12.0); Monocyte% 9.6 % (0-10); NRBC Flagged by Analyzer 0 % (0-5); Neutrophil # 4.07 X10^3/uL (2.7-7.7); Neutrophil % 65.1 % (47-70); Platelet Count 355 K/mm3 (150-450); RBC Distribution Width CV 13.5 % (11.6-14.6); Red Blood Count 3.75 M/mm3 (4.2-5.4); White Blood Count 6.3 K/mm3 (4.4-11.0)
[2020-07-29 14:36] LABS: Urine Sodium 61 mmol/L (Not Establ.)
[2020-07-29 14:53] LABS: Vitamin D,25 Hydroxy 30.5 ng/mL
[2020-07-29 14:59] LABS: ALB/GLOB Ratio 0.9 RATIO (0.9-2.4); AST(SGOT) 20 U/L (15-37); Alanine Aminotransfer ALT/SGPT 23 U/L (13-56); Albumin, Serum 3.3 g/dL (3.2-5.0); Alkaline Phosphatase 84 U/L (45-117); Anion Gap 7 (5-15); BUN 16 mg/dL (7-18); BUN/Creat Ratio 20.1 RATIO (10-20); Calcium,Total 8.3 mg/dL (8.5-10.1); Chloride 95 mmol/L (98-107); EST Glomerular Filtration Rate 74 mL/min (>60); Est Glom Filt Rate - Afr Amer 90 mL/min (>60); Globulin 3.7 g/dL (2.2-4.2); Glucose 90 mg/dL (74-106); Potassium 4.1 mmol/L (3.5-5.1); Sodium Level 128 mmol/L (136-145); Thyroid Stim Hormone (TSH) 1.19 uIU/mL (0.358-3.74)
[2020-07-29 15:10] LABS: Osmolality, Urine 515 mOsm/KG
[2020-08-08 08:55] LABS: Aldosterone, Serum 5.8 ng/dL (0.0-30.0); Renin, Plasma 0.697 ng/mL/hr (0.167-5.380)
== END ==
PROVIDERS: PCP Family Medicine Geriatric Medicine; Visit Provider Internal Medicine Nephrology
DX: E55.9 Vitamin D deficiency, unspecified (principal); I10 Essential (primary) hypertension; E87.1 Hypo-osmolality and hyponatremia
CPT/HCPCS: 36415; 80053; 82088; 82306; 82533; 83935; 84244; 84300; 84443; 85025

== ENCOUNTER 2020-08-24 08:00 | Outpatient (CLI) | payer MEDICARE, SELFPAY ==
[2020-04-28 12:27] VITALS: BMI 34.1
[2020-08-10 08:05] VITALS: BP 214/86; PULSE 73; RESP 16; TEMP 35.8; O2SAT 99; BMI 33.3
[2020-08-10 08:20] VITALS: BP 206/74
[2020-08-10 09:06] VITALS: BP 205/68
[2020-08-24 08:10] VITALS: BP 159/73; PULSE 65; RESP 16; TEMP 35.9; O2SAT 99; BMI 33.3
[2020-08-24] MEDS: Cosyntropin 0.25 MG Vial IM (08:35)
[2020-08-24 09:47] VITALS: BP 153/67; PULSE 65
== END 2020-08-24 14:00 ==
PROVIDERS: PCP Family Medicine Geriatric Medicine; Referring Provider Internal Medicine Nephrology; Visit Provider Internal Medicine Nephrology
DX: E87.1 Hypo-osmolality and hyponatremia (principal)
CPT/HCPCS: 36415; 82533; 96372; J0834

== ENCOUNTER → 2020-08-31 14:30 | Outpatient (CLI) | payer MEDICARE, SELFPAY ==
[2020-04-28 12:27] VITALS: BMI 34.1
[2020-08-24 08:10] VITALS: BMI 33.3
[2020-08-31 16:32] LABS: Anion Gap 9 (5-15); BUN 14 mg/dL (7-18); BUN/Creat Ratio 18.6 RATIO (10-20); Calcium,Total 8.5 mg/dL (8.5-10.1); Chloride 94 mmol/L (98-107); Creatinine, Serum 0.75 mg/dL (0.55-1.02); EST Glomerular Filtration Rate 80 mL/min (>60); Est Glom Filt Rate - Afr Amer 96 mL/min (>60); Glucose 95 mg/dL (74-106); Sodium Level 128 mmol/L (136-145)
== END ==
PROVIDERS: PCP Family Medicine Geriatric Medicine; Visit Provider Internal Medicine Nephrology
DX: E87.1 Hypo-osmolality and hyponatremia (principal)
CPT/HCPCS: 36415; 80048; 82533

== ENCOUNTER → 2020-09-17 15:11 | Outpatient (CLI) | payer MEDICARE, SELFPAY ==
[2020-04-28 12:27] VITALS: BMI 34.1
[2020-08-24 08:10] VITALS: BMI 33.3
--- NOTE | 2020-09-17 15:14 | VDLE_ITS ---
Reason For Study: Localized edema RIGHT GSV is normal. CFV is compressible, spontaneous, phasic, competent and demonstrates normal augmentation. FV is compressible, spontaneous, phasic, competent and demonstrates normal augmentation. POP V is compressible, spontaneous, phasic, competent and demonstrates normal augmentation. T/P Trunk is compressible. PTV is compressible. RT PerV is compressible. Nonvascularized structure noted in the right popliteal fossa measuring 0.95 x 4.38 x 2.74 cm. Large nonvascularized structure noted in the right proximal calf muscle measuring approximently 1.67 x 3.62 cm. Procedure This is a venous duplex using B-mode, color flow and spectral Doppler. Exam performed in department. A preliminary report was called and/or faxed to [facility]. Interpretation Summary There is no evidence of right lower extremity deep vein thrombosis. Right great saphenous vein appears patent and compressible segmentally. Nonvascular right popliteal fossa structure measuring 0.95 x 4.38 x 2.74 cm. Location was consistent with a Jay's cyst. Heterogenous nonvascular right proximal calf muscle structure measuring 1.67 x 3.62 cm. Clinical correlation would be appropriate. Ordering Physician: Sarabjit Tam Referring Physician: Sarabjit Tam Chi Performed By: Lachelle Brown RVT
== END ==
PROVIDERS: PCP Family Medicine Geriatric Medicine; Referring Provider Family Medicine Geriatric Medicine; Visit Provider Family Medicine Geriatric Medicine
DX: R60.9 Edema, unspecified (principal); R60.0 Localized edema
CPT/HCPCS: 93971

== ENCOUNTER → 2020-09-25 07:58 | Outpatient (CLI) | payer MEDICARE, SELFPAY ==
[2020-04-28 12:27] VITALS: BMI 34.1
--- NOTE | 2020-09-25 08:03 | RDU_ITS ---
Reason For Study: Stenosis Right Renal Artery Left Renal Artery Right renal artery ostium 282.8/32 Left renal artery ostium 112.8/22.3 RSV/EDV. PSV/EDV. Right renal artery proximal Left renal artery proximal PSV/EDV 306/27.4 PSV/EDV. 227.2/15.3 . Right renal artery mid 167.8/19.1 Left renal artery mid 160/17.3 PSV/EDV. PSV/EDV . Right renal artery distal Left renal artery distal 262.5/54.5 131.5/28.3 PSV/EDV. PSV/EDV. Right RAR 3.23. Left RAR 2.77. Right Renal Parenchyma Left Renal Parenchyma Upper Pole Medula 28/8.2 PSV/EDV. Left upper pole medulla 32.1/6.9 Right upper pole medulla EDR 0.29 . PSV/EDV . Right upper pole medulla R.I. Left upper pole medulla EDR 0.21 . 0.71 . Left upper pole medulla R.I. 0.79 . Upper Vivek Cortx 21.9/4.3 PSV/EDV. UP Cortex 23.5/6.9 PSV/EDV. Right upper pole cortex EDR 0.20 . Left upper pole cortex EDR 0.29 . Right upper pole cortex R.I. 0.80 . Left upper pole cortex R.I. 0.71 . Right lower Pole medulla 29.6/6.5 Left lower Pole medulla 27.8/5.7 PSV/EDV . PSV/EDV . Right lower pole medulla EDR 0.22 . Left lower pole medulla EDR 0.20 . Right lower pole medulla R.I. Left lower pole medulla R.I. 0.80 . 0.78 . Lower Pole Cortx 19.2/6.3 PSV/EDV. Lower Pole Cortex 19.2/5.4 PSV/EDV. Left lower pole cortex EDR 0.33 . Right lower pole cortex EDR 0.28 . Left lower pole cortex R.I. 0.67 . Right lower pole cortex R.I. 0.72 . Left Renal Hilar Right Renal Hilar LT Hilar avg 83.8/21.7 PSV/EDV . Right Hilar avg 76.4/18.9 PSV/EDV. Left hilar acceleration time 30 Right hilar acceleration time 20 m/sec. m/sec. Left Renal Dimensions Right Renal Dimensions Left kidney size 10.35 cm . Right kidney size 10.02 cm . Left cortical dimension 1.77 cm . Right cortical dimension 1.62 cm . Nonvascularized structure noted in on the lower pole of kidney measuring approximently 5.11 x 6.20 cm. Aorta Proximal abdominal aorta 1.51 x 1.52 cm . Proximal abdominal aorta peak systolic velocity is 94.8 cm/sec . Distal abdominal aorta 1.02 x 1.02 cm . Distal abdominal aorta peak systolic velocity is 101.4 cm/sec . VL/Renal Artery Duplex Ultrasound Interpretation Summary Findings felt to be consistent with greater than 60% stenosis right renal arter y. Right renal size 10.02 cm Less than 60% stenosis left renal artery Left renal size 10.35 cm Proximal aorta 1.51 x 1.52 cm diameter Left kidney 5.11 x 6.2 cm nonvascularized structure consistent with a renal cys t. Clinical correlation would be appropriate. Compared to October 03, 2017 the degree of renal artery stenosis appears stable. The left renal cystic structure previously measured 4.76 x 5.37 cm The previous right renal length was 10.4 cm and previous left renal length 12.2 cm Ordering Physician: Jammie Joshua Referring Physician: Sarabjit Tam Chi Performed By: Lachelle Brown RVT
== END ==
PROVIDERS: PCP Family Medicine Geriatric Medicine; Referring Provider Internal Medicine Nephrology; Visit Provider Internal Medicine Nephrology
DX: I70.1 Atherosclerosis of renal artery (principal)
CPT/HCPCS: 93975

== ENCOUNTER → 2020-09-28 14:55 | Outpatient (CLI) | payer MEDICARE, SELFPAY ==
[2020-04-28 12:27] VITALS: BMI 34.1
[2020-09-28 15:58] LABS: Anion Gap 6 (5-15); BUN 15 mg/dL (7-18); BUN/Creat Ratio 18.2 RATIO (10-20); Calcium,Total 8.7 mg/dL (8.5-10.1); Chloride 96 mmol/L (98-107); Creatinine, Serum 0.82 mg/dL (0.55-1.02); EST Glomerular Filtration Rate 71 mL/min (>60); Est Glom Filt Rate - Afr Amer 86 mL/min (>60); Glucose 117 mg/dL (74-106); Potassium 4.3 mmol/L (3.5-5.1); Sodium Level 126 mmol/L (136-145)
== END ==
PROVIDERS: PCP Family Medicine Geriatric Medicine; Visit Provider Internal Medicine Nephrology
DX: E87.1 Hypo-osmolality and hyponatremia (principal)
CPT/HCPCS: 36415; 80048

== ENCOUNTER → 2020-10-13 15:34 | Outpatient (CLI) | payer MEDICARE, SELFPAY ==
[2020-04-28 12:27] VITALS: BMI 34.1
[2020-10-06 11:45] VITALS: BMI 34.1
[2020-10-13 17:00] LABS: Anion Gap 6 (5-15); BUN 19 mg/dL (7-18); BUN/Creat Ratio 22.1 RATIO (10-20); Calcium,Total 8.2 mg/dL (8.5-10.1); Chloride 95 mmol/L (98-107); Creatinine, Serum 0.86 mg/dL (0.55-1.02); EST Glomerular Filtration Rate 68 mL/min (>60); Est Glom Filt Rate - Afr Amer 83 mL/min (>60); Glucose 93 mg/dL (74-106); Potassium 3.4 mmol/L (3.5-5.1); Sodium Level 127 mmol/L (136-145)
== END ==
PROVIDERS: PCP Family Medicine Geriatric Medicine; Visit Provider Internal Medicine Nephrology
DX: E87.1 Hypo-osmolality and hyponatremia (principal)
CPT/HCPCS: 36415; 80048

== ENCOUNTER → 2020-10-19 14:34 | Outpatient (CLI) | payer MEDICARE, SELFPAY ==
[2020-04-28 12:27] VITALS: BMI 34.1
[2020-10-06 11:45] VITALS: BMI 34.1
== END ==
PROVIDERS: PCP Family Medicine Geriatric Medicine; Referring Provider Family Medicine Geriatric Medicine; Visit Provider Family Medicine Geriatric Medicine
DX: R06.89 Other abnormalities of breathing (principal)
CPT/HCPCS: 87635; C9803; U0002

== ENCOUNTER → 2020-11-18 14:58 | Outpatient (CLI) | payer MEDICARE, SELFPAY ==
[2020-04-28 12:27] VITALS: BMI 34.1
[2020-10-06 11:45] VITALS: BMI 34.1
[2020-11-04 14:32] VITALS: BMI 33.9
[2020-11-18 16:09] LABS: Anion Gap 8 (5-15); BUN 13 mg/dL (7-18); BUN/Creat Ratio 12.9 RATIO (10-20); Calcium,Total 8.6 mg/dL (8.5-10.1); Chloride 91 mmol/L (98-107); Creatinine, Serum 1.01 mg/dL (0.55-1.02); EST Glomerular Filtration Rate 57 mL/min (>60); Est Glom Filt Rate - Afr Amer 68 mL/min (>60); Glucose 145 mg/dL (74-106); Sodium Level 124 mmol/L (136-145)
== END ==
PROVIDERS: Internal Medicine Cardiovascular Disease; PCP Family Medicine Geriatric Medicine; Visit Provider Internal Medicine Nephrology
DX: I12.9 Hypertensive chronic kidney disease with stage 1 through stage 4 chronic kidney disease, or unspecified chronic kidney disease (principal); N18.2 Chronic kidney disease, stage 2 (mild); E87.1 Hypo-osmolality and hyponatremia
CPT/HCPCS: 36415; 80048

== ENCOUNTER → 2020-11-24 14:46 | Outpatient (CLI) | payer MEDICARE, SELFPAY ==
[2020-04-28 12:27] VITALS: BMI 34.1
[2020-11-04 14:32] VITALS: BMI 33.9
[2020-11-24 16:59] LABS: Absolute Lymphocyte Count 1.01 X10^3/uL (0.83-4.51); Absolute Neutrophil Count 3.8 X10^3/uL (2.0-7.7); Basophil# 0.03 X10^3/uL; Basophil% 0.6 % (0-1); Eosinophil# 0.02 X10^3/uL; Eosinophils% 0.4 % (0-5); Hematocrit 31.7 % (37-47); Hemoglobin 10.7 g/dL (12.0-15.0); Lymphocyte # 1.01 X10^3/ul (0.83-4.51); Lymphocyte % 18.9 % (19-41); Mean Corp Hgb Conc 33.8 g/dL (32-36); Mean Corpuscular Hgb 30.8 pg (27.0-32.0); Mean Corpuscular Volume 91.4 fL (81-99); Mean Platelet Vol. 9.5 fl (6.2-12.0); Monocyte# 0.48 X10^3/uL; NRBC Flagged by Analyzer 0 % (0-5); Neutrophil # 3.77 X10^3/uL (2.7-7.7); Neutrophil % 70.5 % (47-70); Platelet Count 364 K/mm3 (150-450); RBC Distribution Width CV 12.5 % (11.6-14.6); RBC Distribution Width SD 41.6 fl (35.1-43.9); Red Blood Count 3.47 M/mm3 (4.2-5.4); White Blood Count 5.3 K/mm3 (4.4-11.0)
[2020-11-24 17:32] LABS: ALB/GLOB Ratio 0.9 RATIO (0.9-2.4); AST(SGOT) 22 U/L (15-37); Alanine Aminotransfer ALT/SGPT 29 U/L (13-56); Albumin, Serum 3.2 g/dL (3.2-5.0); Alkaline Phosphatase 84 U/L (45-117); Anion Gap 12 (5-15); BUN 23 mg/dL (7-18); BUN/Creat Ratio 21.3 RATIO (10-20); Calcium,Total 8.4 mg/dL (8.5-10.1); Chloride 92 mmol/L (98-107); Creatinine, Serum 1.08 mg/dL (0.55-1.02); EST Glomerular Filtration Rate 52 mL/min (>60); Est Glom Filt Rate - Afr Amer 63 mL/min (>60); Globulin 3.6 g/dL (2.2-4.2); Glucose 112 mg/dL (74-106); Potassium 4.1 mmol/L (3.5-5.1); Protein, Total 6.8 g/dL (6.4-8.2); Sodium Level 123 mmol/L (136-145); Thyroid Stim Hormone (TSH) 1.26 uIU/mL (0.358-3.74)
[2020-11-26 12:23] LABS: Vitamin D,25 Hydroxy 34.9 ng/mL
== END ==
PROVIDERS: PCP Family Medicine Geriatric Medicine; Visit Provider Family Medicine Geriatric Medicine
DX: E55.9 Vitamin D deficiency, unspecified (principal); I10 Essential (primary) hypertension; N39.0 Urinary tract infection, site not specified
CPT/HCPCS: 36415; 80053; 82306; 84443; 85025; 87086; 87088

== ENCOUNTER → 2020-11-26 16:24 | Outpatient (CLI) | payer MEDICARE, SELFPAY ==
[2020-04-28 12:27] VITALS: BMI 34.1
[2020-11-04 14:32] VITALS: BMI 33.9
[2020-11-26 17:54] LABS: Anion Gap 5 (5-15); BUN 21 mg/dL (7-18); Calcium,Total 8.6 mg/dL (8.5-10.1); Chloride 99 mmol/L (98-107); EST Glomerular Filtration Rate 57 mL/min (>60); Est Glom Filt Rate - Afr Amer 69 mL/min (>60); Glucose 100 mg/dL (74-106); Sodium Level 126 mmol/L (136-145)
== END ==
PROVIDERS: PCP Family Medicine Geriatric Medicine; Visit Provider Family Medicine Geriatric Medicine
DX: E87.1 Hypo-osmolality and hyponatremia (principal)
CPT/HCPCS: 36415; 80048

== ENCOUNTER → 2020-12-07 11:07 | Outpatient (CLI) | payer MEDICARE, SELFPAY ==
[2020-04-28 12:27] VITALS: BMI 34.1
[2020-11-04 14:32] VITALS: BMI 33.9
[2020-12-07 12:52] LABS: Anion Gap 8 (5-15); BUN 12 mg/dL (7-18); Calcium,Total 8.4 mg/dL (8.5-10.1); Chloride 96 mmol/L (98-107); Creatinine, Serum 0.75 mg/dL (0.55-1.02); EST Glomerular Filtration Rate 80 mL/min (>60); Est Glom Filt Rate - Afr Amer 96 mL/min (>60); Glucose 89 mg/dL (74-106); Potassium 4.4 mmol/L (3.5-5.1); Sodium Level 127 mmol/L (136-145)
== END ==
PROVIDERS: PCP Family Medicine Geriatric Medicine; Referring Provider Family Medicine Geriatric Medicine; Visit Provider Family Medicine Geriatric Medicine
DX: E87.1 Hypo-osmolality and hyponatremia (principal)
CPT/HCPCS: 36415; 80048

== ENCOUNTER → 2020-12-10 09:28 | Outpatient (CLI) | payer MEDICARE, SELFPAY ==
[2020-04-28 12:27] VITALS: BMI 34.1
[2020-10-06 11:45] VITALS: BMI 34.1
[2020-11-04 14:32] VITALS: BMI 33.9
== END ==
LOC: POLAB3 09:29 → LAB.FUTURE 09:36
PROVIDERS: PCP Family Medicine Geriatric Medicine; Visit Provider Internal Medicine Nephrology
DX: N18.2 Chronic kidney disease, stage 2 (mild) (principal)

== ENCOUNTER → 2020-12-10 09:37 | Outpatient (CLI) | payer MEDICARE, SELFPAY ==
[2020-04-28 12:27] VITALS: BMI 34.1
[2020-11-04 14:32] VITALS: BMI 33.9
[2020-12-10 11:00] LABS: Urine Sodium 69 mmol/L (Not Establ.)
[2020-12-10 11:03] LABS: Anion Gap 6 (5-15); BUN 14 mg/dL (7-18); BUN/Creat Ratio 15.9 RATIO (10-20); Calcium,Total 8.6 mg/dL (8.5-10.1); Chloride 94 mmol/L (98-107); Creatinine, Serum 0.88 mg/dL (0.55-1.02); EST Glomerular Filtration Rate 66 mL/min (>60); Est Glom Filt Rate - Afr Amer 80 mL/min (>60); Glucose 93 mg/dL (74-106); Potassium 4.5 mmol/L (3.5-5.1); Sodium Level 124 mmol/L (136-145)
[2020-12-10 11:09] LABS: Osmolality, Serum 263 mOsm/KG (280-301); Osmolality, Urine 324 mOsm/KG
== END ==
PROVIDERS: PCP Family Medicine Geriatric Medicine; Visit Provider Internal Medicine Nephrology
DX: E87.1 Hypo-osmolality and hyponatremia (principal)
CPT/HCPCS: 36415; 80048; 83930; 83935; 84133; 84300

== ENCOUNTER 2021-01-04 15:09 | Emergency (ER) | payer MEDICARE, SELFPAY ==
[2020-04-28 12:27] VITALS: BMI 34.1
[2020-11-04 14:32] VITALS: BMI 33.9
[2021-01-04 15:10] VITALS: BP 211/84; PULSE 73; RESP 20; TEMP 36.6; O2SAT 98; BMI 32.7
--- NOTE | 2021-01-04 15:39 | EX.ED.DYSGE1 ---
HPI History of Present Illness Chief Complaint: Rash Narrative Narrative: 75-year-old female presenting with a rash on buttocks and as well under her breasts. She describes it as pruritic in nature. She does not have any systemic signs or symptoms. [facility] Medical History Abnormal cardiac enzyme level Anxiety and depression Atherosclerotic heart disease of [place] coronary artery without angina pectoris Chest pain CKD (chronic kidney disease) CVA (cerebral vascular accident) Elevated troponin Essential hypertension History of gastroesophageal reflux (GERD) HLD (hyperlipidemia) Hypertensive urgency Hyponatremia Near syncope Non-rheumatic mitral regurgitation PAD (peripheral artery disease) Pessary maintenance Presence of stent in coronary artery (~04/16/20) Syncope and collapse Syncope due to orthostatic hypotension UTI (urinary tract infection) Vaginal wall prolapse Home Medications aspirin 81 mg tablet,delayed release 81 mg PO DAILY #1 tab 10/31/19 [Rx Last Taken 04/16/20] clonidine HCl 0.1 mg tablet 0.1 mg PO BID PRN 10/31/19 [History Last Taken 03/15/20] losartan 100 mg tablet 50 mg PO BID tab 01/31/20 [History Last Taken 08/24/20 50 MG] omeprazole 40 mg PO DAILY 03/17/20 [History Last Taken 04/16/20] ezetimibe 10 mg tablet 10 mg PO DAILY 07/14/20 [History Last Taken Unknown] alprazolam 0.5 mg tablet 0.5 mg PO QHS PRN 08/11/20 [History Last Taken Unknown] carvedilol 25 mg tablet 25 mg PO BID #60 tab 08/11/20 [Rx Last Taken 08/24/20 25 MG] ticagrelor 90 mg tablet 90 mg PO BID tab 10/06/20 [History Last Taken Unknown] furosemide 20 mg tablet 20 mg PO DAILY PRN 11/04/20 [History Last Taken Unknown] hydralazine 50 mg tablet 50 mg PO TID tab 11/04/20 [History Last Taken Unknown] ipratropium bromide 42 mcg (0.06 %) nasal spray 2 spray INTRANASAL BID ml 11/04/20 [History Last Taken Unknown] levocetirizine 5 mg tablet 5 mg PO DAILY 11/04/20 [History Last Taken Unknown] spironolactone 25 mg tablet 25 mg PO DAILY #30 tab 11/10/20 [Rx Last Taken Unknown] ketoconazole 1 applic TOPICAL BID 28 Days #100 g 01/04/21 [Rx Last Taken Unknown] Allergy/AdvReac Type Severity Reaction Status Date / Time amlodipine AdvReac Intermediate swelling Verified 01/04/21 15:12 Fitoqea-Jyo-Cgw Reductase AdvReac leg muscle Verified 01/04/21 15:12 Inhibitor weakness Family History Mother CAD (coronary artery disease) Brother CVA (cerebral vascular accident) Sister CAD (coronary artery disease) Sister Diabetes Brother Diabetes Brother CAD (coronary artery disease) Surgical History History of bilateral cataract extraction Presence of coronary angioplasty implant and graft (~03/18/20) Social History Smoking Status: Never smoker alcohol intake: never substance use type: does not use caffeine: No what type of physical activity do you participate in: none seatbelt use: always do you feel safe at home: Yes additional social history: - Retired 1 adopted daughter-, drug use ROS ROS ED Constitutional Constitutional ED: Denies chills, fever(s) or sweats Eyes Eyes: Denies blurry vision or change in vision ENT ENT ED: Denies rhinorrhea or sore throat Cardiovascular Cardiovascular: Denies chest pain or palpitations Respiratory/Chest Respiratory/Chest: Denies cough, dyspnea or sputum Gastrointestinal Gastrointestinal: Denies abdominal pain, nausea or vomiting Genitourinary Genitourinary ED: Denies dysuria or hematuria Musculoskeletal Musculoskeletal: Denies arthralgias or myalgias Integumentary Reports rash Neurologic Neurologic: Denies headache(s) or paresthesias EXAM Physical Exam Const Vital Signs: 01/04/21 15:10 Temperature 97.8 F Temperature Source Temporal Pulse Rate 73 Respiratory Rate 20 H Blood Pressure 211/84 H Blood Pressure Mean 126 Pulse Ox 98 Oxygen Delivery Method Room Air Positive well nourished General Appearance ED: NAD HEENT Negative for trauma or tenderness Eyes PERRL and EOMs intact bilaterally Resp normal respiratory effort and clear to auscultation bilaterally Cardio regular rate and regular rhythm Neuro oriented x3 Sensorium / Orientation: alert Psych mental status grossly normal Skin Skin Narrative: Erythematous rash on the bilateral buttocks and under the bilateral breasts consistent with tinea MDM MDM MDM Narrative Medical decision making narrative: Patient presenting with rash which looks to be candidal in nature. Ketoconazole was applied to these areas. Patient will be given a prescription for home. Patient given care instructions and return precautions. Impression: Tinea cruris Discharge Plan Triage Chief Complaint: Rash ED Provider: Miguel Angel Mark Dx/Rx/DC Orders Instructions: ED Fungal Skin Infection (Tinea) Prescriptions: New ketoconazole 2 % foam 1 applic topical BID 28 Days Qty: 100 RF: 0 No Action clonidine HCl 0.1 mg tablet 0.1 mg PO BID PRN (Reason: Heart Rate < 40bpm) RF: 0 aspirin 81 mg tablet,delayed release (DR/EC) 81 mg PO DAILY Qty: 1 RF: 0 losartan 100 mg tablet 50 mg PO BID RF: 0 levocetirizine 5 mg tablet 5 mg PO DAILY RF: 0 ipratropium bromide 42 mcg (0.06 %) spray,non-aerosol 2 spray intranasal BID RF: 0 furosemide 20 mg tablet 20 mg PO DAILY PRNRF: 0 hydralazine 50 mg tablet 50 mg PO TID RF: 0 alprazolam [Xanax] 0.5 mg tablet 0.5 mg PO QHS PRNRF: 0 carvedilol 25 mg tablet 25 mg PO BID Qty: 60 RF: 11 ezetimibe 10 mg tablet 10 mg PO DAILY RF: 0 ticagrelor 90 mg tablet 90 mg PO BID RF: 0 omeprazole 40 MG capsule,delayed release(DR/EC) 40 mg PO DAILY RF: 0 spironolactone 25 mg tablet 25 mg PO DAILY Qty: 30 RF: 11 Primary Care Provider: Sarabjit Tam Chi Referrals: Sarabjit Tam Chi, MD [Primary Care Provider] - Disposition Disposition: Home, Self Care
--- NOTE | 2021-01-04 16:03 | ED.RN ---
called pharmacy for the cream.
[2021-01-04 16:05] VITALS: PULSE 18
[2021-01-04] MEDS: Ketoconazole Cream 1 APPLIC TOPICAL ×2 (16:12)
== END 2021-01-04 16:14 | disposition home or self-care (01) ==
LOC: ED 15:47
PROVIDERS: Emergency Provider Student in an Organized Health Care Education/Training Program; PCP Family Medicine Geriatric Medicine
DX: B35.6 Tinea cruris (principal); I25.10 Atherosclerotic heart disease of native coronary artery without angina pectoris; Z95.5 Presence of coronary angioplasty implant and graft
CPT/HCPCS: 99283

== ENCOUNTER → 2021-02-08 15:29 | Outpatient (CLI) | payer MEDICARE, SELFPAY ==
[2020-04-28 12:27] VITALS: BMI 34.1
[2021-02-04 14:08] VITALS: BMI 32.7
[2021-02-08 19:58] LABS: EST Glomerular Filtration Rate 74 mL/min (>60); Est Glom Filt Rate - Afr Amer 90 mL/min (>60)
== END ==
PROVIDERS: PCP Family Medicine Geriatric Medicine; Referring Provider Otolaryngology; Visit Provider Otolaryngology
DX: R22.1 Localized swelling, mass and lump, neck (principal)
CPT/HCPCS: 36415; 82565

== ENCOUNTER → 2021-02-09 14:54 | Outpatient (CLI) | payer MEDICARE, SELFPAY ==
[2020-04-28 12:27] VITALS: BMI 34.1
[2020-11-04 14:32] VITALS: BMI 33.9
[2021-02-09 14:12] VITALS: BMI 32.7
[2021-02-09 20:41] LABS: Urine Sodium 39 mmol/L (Not Establ.)
[2021-02-09 20:43] LABS: Anion Gap 8 (5-15); BUN 19 mg/dL (7-18); BUN/Creat Ratio 21.9 RATIO (10-20); Calcium,Total 8.5 mg/dL (8.5-10.1); Chloride 94 mmol/L (98-107); Creatinine, Serum 0.87 mg/dL (0.55-1.02); EST Glomerular Filtration Rate 67 mL/min (>60); Est Glom Filt Rate - Afr Amer 81 mL/min (>60); Glucose 83 mg/dL (74-106); Potassium 4.4 mmol/L (3.5-5.1); Sodium Level 127 mmol/L (136-145)
== END ==
PROVIDERS: PCP Family Medicine Geriatric Medicine; Visit Provider Internal Medicine Nephrology
DX: E87.1 Hypo-osmolality and hyponatremia (principal)
CPT/HCPCS: 36415; 80048; 84300

== ENCOUNTER → 2021-02-19 17:44 | Outpatient (CLI) | payer MEDICARE, SELFPAY ==
[2020-04-28 12:27] VITALS: BMI 34.1
[2021-02-04 14:08] VITALS: BMI 32.7
--- NOTE | 2021-02-19 17:48 | CT_ITS ---
STUDY: CT SOFT TISSUE NECK WITH CONTRAST REASON FOR EXAM: Female, 75 years old. MASS RADIATION DOSAGE (If Supplied By Facility): CTDIvol = ( 14.50 ) mGy, DLP = ( 431.19 ) mGycm TECHNIQUE: The patient was scanned in a multi-detector CT scanner. High resolution transaxial imaging was performed following intravenous administration of IV 100mL Isovue-370. Sagittal and coronal images were reconstructed. Individualized dose optimization techniques were used for this CT. COMPARISON: None. FINDINGS: There is anterior platysmal dehiscence with expansion of both superficial and deep subcutaneous and investing fat tissue without loculated mass. There are no neck masses, fluid collections or lymphadenopathy. Salivary glands are normal. Orbits, paranasal sinuses are clear. 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 Airways patent. Vocal cords are normal. Cervical spine is intact and aligned with age-related changes. CT/Soft Tissue Neck WITH Contrast IMPRESSION: 1. No mass. 2. Increased lipomatous tissue in the anterior neck, no discrete lipoma. Electronically Signed: Gustabo Kirkland MD at 18:24 EDT Tel , Service support ,
== END ==
PROVIDERS: PCP Family Medicine Geriatric Medicine; Visit Provider Otolaryngology
DX: R22.1 Localized swelling, mass and lump, neck (principal)
CPT/HCPCS: 70491

== ENCOUNTER → 2021-03-01 13:04 | Outpatient (CLI) | payer MEDICARE, SELFPAY ==
[2020-04-28 12:27] VITALS: BMI 34.1
[2021-03-01 18:10] LABS: Probe Check PASS; Specimen Processing Control PASS
== END ==
PROVIDERS: PCP Family Medicine Geriatric Medicine; Referring Provider Family Medicine Geriatric Medicine; Visit Provider Family Medicine Geriatric Medicine
DX: R68.83 Chills (without fever) (principal)
CPT/HCPCS: 87635; C9803; U0005; U0003

== ENCOUNTER → 2021-03-04 09:34 | Outpatient (CLI) | payer MEDICARE, SELFPAY ==
[2020-04-28 12:27] VITALS: BMI 34.1
[2021-03-04 09:59] LABS: Absolute Lymphocyte Count 1.68 X10^3/uL (0.83-4.51); Absolute Neutrophil Count 3.4 X10^3/uL (2.0-7.7); Basophil# 0.01 X10^3/uL; Basophil% 0.2 % (0-1); Eosinophil# 0.01 X10^3/uL; Eosinophils% 0.2 % (0-5); Hematocrit 31.3 % (37-47); Hemoglobin 10.5 g/dL (12.0-15.0); Lymphocyte # 1.68 X10^3/ul (0.83-4.51); Mean Corp Hgb Conc 33.5 g/dL (32-36); Mean Corpuscular Hgb 31.1 pg (27.0-32.0); Mean Corpuscular Volume 92.6 fL (81-99); Mean Platelet Vol. 9.3 fl (6.2-12.0); Monocyte# 0.63 X10^3/uL; Monocyte% 10.9 % (0-10); NRBC Flagged by Analyzer 0 % (0-5); Neutrophil # 3.43 X10^3/uL (2.7-7.7); Platelet Count 334 K/mm3 (150-450); RBC Distribution Width CV 12.8 % (11.6-14.6); RBC Distribution Width SD 43.3 fl (35.1-43.9); Red Blood Count 3.38 M/mm3 (4.2-5.4); White Blood Count 5.8 K/mm3 (4.4-11.0)
[2021-03-04 10:41] LABS: ALB/GLOB Ratio 0.9 RATIO (0.9-2.4); AST(SGOT) 18 U/L (15-37); Alanine Aminotransfer ALT/SGPT 23 U/L (13-56); Albumin, Serum 3.3 g/dL (3.2-5.0); Alkaline Phosphatase 77 U/L (45-117); Anion Gap 9 (5-15); BUN 15 mg/dL (7-18); BUN/Creat Ratio 20.7 RATIO (10-20); Calcium,Total 8.5 mg/dL (8.5-10.1); Chloride 91 mmol/L (98-107); Creatinine, Serum 0.73 mg/dL (0.55-1.02); EST Glomerular Filtration Rate 83 mL/min (>60); Est Glom Filt Rate - Afr Amer 100 mL/min (>60); Globulin 3.7 g/dL (2.2-4.2); Glucose 88 mg/dL (74-106); Potassium 3.8 mmol/L (3.5-5.1); Sodium Level 125 mmol/L (136-145); Thyroid Stim Hormone (TSH) 0.93 uIU/mL (0.358-3.74)
[2021-03-04 10:45] LABS: Vitamin D,25 Hydroxy 29.8 ng/mL
== END ==
PROVIDERS: PCP Family Medicine Geriatric Medicine; Referring Provider Family Medicine Geriatric Medicine; Visit Provider Family Medicine Geriatric Medicine
DX: I10 Essential (primary) hypertension (principal); E55.9 Vitamin D deficiency, unspecified
CPT/HCPCS: 36415; 80053; 82306; 84443; 85025

== ENCOUNTER → 2021-03-09 12:11 | Outpatient (CLI) | payer MEDICARE, SELFPAY ==
[2020-04-28 12:27] VITALS: BMI 34.1
[2021-03-09 13:08] LABS: Anion Gap 5 (5-15); BUN 17 mg/dL (7-18); BUN/Creat Ratio 25.6 RATIO (10-20); Calcium,Total 8.4 mg/dL (8.5-10.1); Chloride 99 mmol/L (98-107); Creatinine, Serum 0.66 mg/dL (0.55-1.02); EST Glomerular Filtration Rate 92 mL/min (>60); Est Glom Filt Rate - Afr Amer 111 mL/min (>60); Glucose 94 mg/dL (74-106); Potassium 3.6 mmol/L (3.5-5.1); Sodium Level 130 mmol/L (136-145)
== END ==
PROVIDERS: PCP Family Medicine Geriatric Medicine; Referring Provider Family Medicine Geriatric Medicine; Visit Provider Family Medicine Geriatric Medicine
DX: E87.1 Hypo-osmolality and hyponatremia (principal)
CPT/HCPCS: 36415; 80048

== ENCOUNTER → 2021-04-29 10:58 | Outpatient (CLI) | payer MEDICARE, SELFPAY ==
[2020-04-28 12:27] VITALS: BMI 34.1
[2021-04-29 11:11] LABS: Hematocrit 31.2 % (37-47); Hemoglobin 10.5 g/dL (12.0-15.0); Mean Corp Hgb Conc 33.7 g/dL (32-36); Mean Corpuscular Hgb 31.3 pg (27.0-32.0); Mean Corpuscular Volume 93.1 fL (81-99); Mean Platelet Vol. 9.1 fl (6.2-12.0); Platelet Count 312 K/mm3 (150-450); RBC Distribution Width CV 12.9 % (11.6-14.6); RBC Distribution Width SD 44.3 fl (35.1-43.9); Red Blood Count 3.35 M/mm3 (4.2-5.4); White Blood Count 5.8 K/mm3 (4.4-11.0)
[2021-04-29 11:32] LABS: Anion Gap 6 (5-15); BUN 15 mg/dL (7-18); BUN/Creat Ratio 20.1 RATIO (10-20); Calcium,Total 8.7 mg/dL (8.5-10.1); Chloride 96 mmol/L (98-107); Creatinine, Serum 0.75 mg/dL (0.55-1.02); EST Glomerular Filtration Rate 80 mL/min (>60); Est Glom Filt Rate - Afr Amer 97 mL/min (>60); Glucose 92 mg/dL (74-106); Potassium 4.2 mmol/L (3.5-5.1); Sodium Level 130 mmol/L (136-145)
== END ==
PROVIDERS: PCP Family Medicine Geriatric Medicine; Referring Provider Physician Assistant; Visit Provider Physician Assistant
DX: I70.1 Atherosclerosis of renal artery (principal); I10 Essential (primary) hypertension
CPT/HCPCS: 36415; 80048; 85027

== ENCOUNTER 2021-05-06 09:11 | Day surgery (SDC) | payer MEDICARE, SELFPAY ==
[2020-04-28 12:27] VITALS: BMI 34.1
[2021-05-05 07:21] VITALS: BMI 36.8
--- NOTE | 2021-05-06 10:34 | PCM.HP.BLA ---
History and Physical Date of Admission: 05/06/21 Intake Visit Reasons: update h&p 11-4 renal artery stenting RC Chief Complaint: Update h&p JERRI, htn Is patient in pain?: No Allergies amlodipine Adverse Reaction (Intermediate, Verified 03/04/21 09:05) swelling Sozmhgl-Bcr-Gmh Reductase Inhibitor Adverse Reaction (Verified 03/04/21 09:05) leg muscle weakness Medications omeprazole 40 mg PO DAILY 03/17/20 [History Confirmed 04/29/21] carvedilol 25 mg tablet 25 mg PO BID #60 tab 08/11/20 [Rx Confirmed 04/29/21] hydralazine 50 mg tablet 50 mg PO BID tab 02/04/21 [History Confirmed 04/29/21] [facility] Medical History Anxiety and depression Atherosclerotic heart disease of [place] coronary artery without angina pectoris Chest pain CKD (chronic kidney disease) CVA (cerebral vascular accident) Essential hypertension History of gastroesophageal reflux (GERD) HLD (hyperlipidemia) Hypertensive urgency Hyponatremia Hyponatremia Near syncope Non-rheumatic mitral regurgitation PAD (peripheral artery disease) Pessary maintenance Presence of stent in coronary artery (~04/16/20) Syncope and collapse Syncope due to orthostatic hypotension Vaginal wall prolapse Surgical History History of bilateral cataract extraction Presence of coronary angioplasty implant and graft (~03/18/20) Family History Mother CAD (coronary artery disease) CVA (cerebral vascular accident) Brother CVA (cerebral vascular accident) Heart disease Kidney disease Diabetes Sister CAD (coronary artery disease) Sister Diabetes Brother Diabetes Brother CAD (coronary artery disease) Social History Smoking Status: Never smoker alcohol intake: never substance use type: does not use caffeine: No what type of physical activity do you participate in: none seatbelt use: always do you feel safe at home: Yes additional social history: - Retired 1 adopted daughter-, drug use HPI HPI HPI: SANJIV PEOPLES, is a 76 F who presents to the office today for an update history and physical. At the time of patient's last office visit, she was recovering from acute bronchitis. Patient's symptoms have completely resolved. She denies current chest pain. She denies increased shortness of breath. She denies any difficulties with anesthesia. Patient's previous history per Dr. Reinoso: SANJIV PEOPLES, is a 75 F who presents to the office today for surgical consultation regarding suspected renal artery stenosis. The patient is referred by Dr. Jammie Joshua and a written copy of my surgical consult and recommendations will return to her. The patient does have medical complexity with chronic hyponatremia and chronic kidney disease stage II and hypertension and stenosis of the right renal artery. As of February 09, 2021 BUN was 19 and creatinine 0.87 with an estimated GFR of 67. In addition to her other medications she takes losartan and carvedilol and clonidine and hydralazine. Of significance is that she is on Brilinta and has a history of congestive heart failure On September 25, 2020 she had a renal artery duplex exam as noted below. Now what is of significance is that this was compared to a previous study of October 03, 2017. The right renal length previously measured 10.4 cm and currently measures 10.02 cm essentially the same. In addition the previous peak systolic velocity within the right proximal renal arteries were 306 cm second flow with an end-diastolic velocity of 42. That is essentially identical to the current findings. There is a large cyst involving the left kidney. Cardiology note from February 09, 2021 reveals that the patient was admitted to the [facility] March 17, 2020 for non-ST segment elevation PA. She had stenting to her proximal and mid obtuse marginal and 4 weeks later had a staged procedure stenting of her LAD. She recants an episode of syncope felt possibly secondary to orthostatic hypotension. Her chronic hyponatremia may complicate this. Carotid duplex imaging of December 06, 2019 demonstrates less than 50% stenosis bilateral internal carotid arteries. The patient states that she is here secondary to her multiple medication treatment of hypertension and she is hypertensive today. She also states that Dr. Jammie Joshua is referring her for treatment of her right renal artery secondary to the patient's hyponatremia. The patient states that 1 year ago when she had her heart catheterization that the emergency procedure went well. She states that when she returned to have her LAD treatment that access was difficult through her radial artery and she felt that it was not taken seriously at that time. She states that she felt that she was bruised and uncomfortable. September 25, 2020 Reason For Study: Stenosis Right Renal Artery Left Renal Artery Right renal artery ostium 282.8/32 Left renal artery ostium 112.8/22.3 RSV/EDV. PSV/EDV. Right renal artery proximal Left renal artery proximal PSV/EDV 306/27.4 PSV/EDV. 227.2/15.3 . Right renal artery mid 167.8/19.1 Left renal artery mid 160/17.3 PSV/EDV. PSV/EDV . Right renal artery distal Left renal artery distal 262.5/54.5 131.5/28.3 PSV/EDV. PSV/EDV. Right RAR 3.23. Left RAR 2.77. Right Renal Parenchyma Left Renal Parenchyma Upper Pole Medula 28/8.2 PSV/EDV. Left upper pole medulla 32.1/6.9 Right upper pole medulla EDR 0.29 . PSV/EDV . Right upper pole medulla R.I. Left upper pole medulla EDR 0.21 . 0.71 . Left upper pole medulla R.I. 0.79 . Upper Vivek Cortx 21.9/4.3 PSV/EDV. UP Cortex 23.5/6.9 PSV/EDV. Right upper pole cortex EDR 0.20 . Left upper pole cortex EDR 0.29 . Right upper pole cortex R.I. 0.80 . Left upper pole cortex R.I. 0.71 . Right lower Pole medulla 29.6/6.5 Left lower Pole medulla 27.8/5.7 PSV/EDV . PSV/EDV . Right lower pole medulla EDR 0.22 . Left lower pole medulla EDR 0.20 . Right lower pole medulla R.I. Left lower pole medulla R.I. 0.80 . 0.78 . Lower Pole Cortx 19.2/6.3 PSV/EDV. Lower Pole Cortex 19.2/5.4 PSV/EDV. Left lower pole cortex EDR 0.33 . Right lower pole cortex EDR 0.28 . Left lower pole cortex R.I. 0.67 . Right lower pole cortex R.I. 0.72 . Left Renal Hilar Right Renal Hilar LT Hilar avg 83.8/21.7 PSV/EDV . Right Hilar avg 76.4/18.9 PSV/EDV. Left hilar acceleration time 30 Right hilar acceleration time 20 m/sec. m/sec. Left Renal Dimensions Right Renal Dimensions Left kidney size 10.35 cm . Right kidney size 10.02 cm . Left cortical dimension 1.77 cm . Right cortical dimension 1.62 cm . Nonvascularized structure noted in on the lower pole of kidney measuring approximently 5.11 x 6.20 cm. Aorta Proximal abdominal aorta 1.51 x 1.52 cm . Proximal abdominal aorta peak systolic velocity is 94.8 cm/sec . Distal abdominal aorta 1.02 x 1.02 cm . Distal abdominal aorta peak systolic velocity is 101.4 cm/sec . VL/Renal Artery Duplex Ultrasound Interpretation Summary Findings felt to be consistent with greater than 60% stenosis right renal artery. Right renal size 10.02 cm Less than 60% stenosis left renal artery Left renal size 10.35 cm Proximal aorta 1.51 x 1.52 cm diameter Left kidney 5.11 x 6.2 cm nonvascularized structure consistent with a renal cyst. Clinical correlation would be appropriate. Compared to October 03, 2017 the degree of renal artery stenosis appears stable. The left renal cystic structure previously measured 4.76 x 5.37 cm The previous right renal length was 10.4 cm and previous left renal length 12.2 cm Ordering Physician: Jammie Joshua Referring Physician: Sarabjit Tam Chi Performed By: Lachelle Brown RVT General General: Yes fatigue; No weight change, appetite, colon cancer, breast cancer or weakness HEENT HEENT: Yes difficulty swallowing, eye injury and swollen glands; No eye surgery or hoarseness Endo Endocrine: No thyroid disease, diabetes mellitus, thyroid cancer, Hair loss, heat intolerance or cold intolerance Musc Musculoskeletal: Yes back problems, arthritis and rheumatoid arthritis; No gout or joint pain Cardio Cardiovascular: Yes murmur, heart disease, high blood pressure, heart attack and heart stent; No pacemaker, atrial fibrillation, palpitations, shortness of breat with exertion or chest pain Psych Psychiatric: Yes depression and anxiety; No hearing voices Resp Respiratory: Yes shortness of breath, Yes sleep apnea, Yes cough, No COPD, No asthma, No emphysema and No wheezing Gastro Gastrointestinal: No abdominal pain, No nausea or vomiting, No diarrhea, No constipation, No blood in stool, Yes acid reflux, No hemorrhoids, No ulcers, No gallbladder problem and No black,tarry stools Silvio Hematologic: Yes blood thinners, No blood disorders, No bleeding, No anemia and No blood clots Neuro Neurologic: No weakness Exam Const General: cooperative, healthy appearing, comfortable and no acute distress HENMT Head: normal to inspection Eyes General: appearance normal, both eyes and all related structures Neck Neck: normal visual inspection Neck mass: No Resp Effort & Inspection: normal respiratory effort Auscultation: clear to auscultation bilaterally Cardio Rate: regular rate Rhythm: regular rhythm GI Inspection: normal to inspection Palpation: soft Auscultation: normal bowel sounds Skin General: no rashes or lesions noted Neuro General: no focal motor deficits and CN's II-XI intact bilaterally Extrem General: normal to inspection Psych Appearance: grossly normal Affect: normal affect COVID (Procedure Consent) Procedure Criteria Procedure Criteria: Yes Elective The surgeon/proceduralist and patient have discussed in detail the risk of exposure to and/or potential harm posed by the COVID-19 virus with having a surgery/procedure at this time versus the risk of delaying the surgery/procedure. It is not possible to know either the risk of delaying the surgery or procedure or chance of getting an infection with perfect accuracy, but a joint decision was made between the patient and the surgeon/proceduralist to proceed at this time with the scheduled surgery/procedure as indicated on the consent form. Assessment and Plan Assessment and Plan (1) Renal artery stenosis: Status: Acute Orders: Orders: Basic Metabolic Profile (BMP) Today CBC-Complete Blood Cnt No Diff Today Plan - Joselyn ARVIZU PAKoleC: Dr. Reinoso will plan to perform a selective aortogram with renal artery study and potential right renal artery angioplasty and stenting. Procedure details, risks and benefits have been explained. Patient has had the opportunity to ask and have questions answered. Patient verbally understand and agrees with the plan. Patient is no longer taking Brilinta or any other blood thinner at this time. I have re-examined the patient. There are no clinical changes since date of exam. Rogelio Reinoso M.D., F.A.C.S.
--- NOTE | 2021-05-06 12:47 | PCM.OPRPT ---
Problems Associated Problem List Diagnoses (1) Renal artery stenosis: (2) Essential hypertension: Report of Operation Date of Procedure: 05/06/21 Pre-Operative Diagnosis: Suspected renal artery stenosis related hypertension Post-Operative Diagnosis: Greater than 60% stenosis bilateral renal arteries Surgery/Procedure Performed:: Abdominal aortogram, selective bilateral renal artery arteriograms, right renal artery 4 x 12 formula stenting and left renal artery 4 x 24 member stenting Description of Surgical Findings:: Timeout and informed consent was obtained. 76-year-old female was taken to the special procedures lab placed upon the table. She had 50 mcg of fentanyl 1 mg Versed is initially sedation. As she was hypertensive in aliquots she received 5 mg of hydralazine IV and then an additional 5 mg of hydralazine IV without result. She was then given a single sublingual nitroglycerin. That did assist with her blood pressure. Bilateral groins were sterilely prepped and draped. Ultrasound was used to identify the right common femoral artery. Under ultrasound guidance 2% lidocaine was instilled. Throughout the procedure a total of 20 cc was used. Under ultrasound guidance micropuncture needle was inserted to the right common femoral artery followed by 7 inch wire technique micropuncture sheath then an 035 J-wire and a 5 [place] short sheath dilator. Using a 035 J-wire a marking pigtail catheter is placed in the abdominal aorta. Using slightly denuded contrast a AP aortogram was obtained. This demonstrated what appeared to be clinically significant greater than 60% bilateral renal artery stenosis with more focal disease in the proximal right renal artery and diffuse disease involving the orifice of the left renal artery as well as a length of about 20 mm of diffuse calcific disease. By using a 6 [place] sheath was able to use a [address] a ANDERSON guide sheath into the right renal artery orifice this was done with almost no effort or disturbance. Selective renal arteriogram obtained. Thunder wire was advanced. I then placed a 4 x 12 mm formula stent and inflated that to 10 humberto of pressure. It is of note that the patient did receive 8000 units of heparin once I confirmed that I was going to intervene. Throughout the procedure she did receive an additional 1000 units of heparin. Completion arteriogram demonstrated good positioning of the stent with resolution of the stenosis. In a similar fashion I used the ANDERSON to engage the orifice of the left renal artery there was diffuse disease I was able to advance the thunder wire and then I needed to preballooned with a 4 x 8 mm balloon. I had trouble advancing the ANDERSON catheter so Dr. Gonzalez joined me and used a glide sheath to assist with getting coverage through the area of calcific disease. This then allowed placement of a 4 x 20 mm formula stent which was subsequently deployed and inflated to 10 humberto of pressure. Completion selective left renal study demonstrated good flow in the kidney no evidence of adverse effect good placement of the stent. Delivery mechanism was removed. A J-wire inserted in the right groin. 2 Perclose devices were deployed to assist with hemostasis and gentle pressure was used for hemostasis. The right foot was carefully inspected and noted be completely viable. The patient seemed to remained stable throughout. With pressure on the groin she did temporarily become slightly bradycardic from mid 60s down to approximately a heart rate of 52. Blood pressure remained stable. She was taken to the recovery area in satisfactory condition for observation. Her aortogram demonstrated diffuse irregular disease of the abdominal aorta with significant calcific disease of the proximal portion of the left renal artery over a 2 cm length and the more focal area of disease in the proximal right renal artery. Subsequent to direct stenting on the right and preangioplasty on the left with subsequent stenting on the left there appears to be resolution of the areas of clinically significant greater than 60% stenosis. Total contrast used approximately 75 cc. Rogelio Reinoso M.D., F.A.C.S. Surgeon: Rogelio Reinoso data warehouse architect: Diallo Gonzalez Type of Anesthesia: IV Sedation and Local
== END 2021-05-06 17:00 | disposition home or self-care (01) ==
PROVIDERS: PCP Family Medicine Geriatric Medicine; Referring Provider Surgery; Visit Provider Surgery
DX: I70.1 Atherosclerosis of renal artery (principal); I25.10 Atherosclerotic heart disease of native coronary artery without angina pectoris; I13.0 Hypertensive heart and chronic kidney disease with heart failure and stage 1 through stage 4 chronic kidney disease, or unspecified chronic kidney disease; I50.9 Heart failure, unspecified; N18.2 Chronic kidney disease, stage 2 (mild); I25.2 Old myocardial infarction; E87.1 Hypo-osmolality and hyponatremia; Z95.5 Presence of coronary angioplasty implant and graft; Z79.899 Other long term (current) drug therapy; Z86.73 Personal history of transient ischemic attack (TIA), and cerebral infarction without residual deficits
CPT/HCPCS: 36252; 37236; 37237; 76937; 99152; 99153; J7030; J7040; Q9967; C1760; C1769; C1876; C1887

== ENCOUNTER → 2021-05-12 11:21 | Outpatient (CLI) | payer MEDICARE, SELFPAY ==
[2020-04-28 12:27] VITALS: BMI 34.1
[2021-05-12 11:44] LABS: Anion Gap 5 (5-15); BUN 14 mg/dL (7-18); BUN/Creat Ratio 18.3 RATIO (10-20); Calcium,Total 8.7 mg/dL (8.5-10.1); Chloride 92 mmol/L (98-107); Creatinine, Serum 0.77 mg/dL (0.55-1.02); EST Glomerular Filtration Rate 78 mL/min (>60); Est Glom Filt Rate - Afr Amer 94 mL/min (>60); Glucose 85 mg/dL (74-106); Potassium 3.9 mmol/L (3.5-5.1); Sodium Level 128 mmol/L (136-145)
== END ==
PROVIDERS: PCP Family Medicine Geriatric Medicine; Referring Provider Surgery; Visit Provider Surgery
DX: I70.1 Atherosclerosis of renal artery (principal); E78.1 Pure hyperglyceridemia
CPT/HCPCS: 36415; 80048

== ENCOUNTER → 2021-05-25 14:17 | Outpatient (CLI) | payer MEDICARE, SELFPAY ==
[2020-04-28 12:27] VITALS: BMI 34.1
[2021-05-25 15:09] LABS: Anion Gap 7 (5-15); BUN 20 mg/dL (7-18); BUN/Creat Ratio 24.2 RATIO (10-20); Calcium,Total 8.7 mg/dL (8.5-10.1); Chloride 92 mmol/L (98-107); Creatinine, Serum 0.83 mg/dL (0.55-1.02); EST Glomerular Filtration Rate 71 mL/min (>60); Est Glom Filt Rate - Afr Amer 86 mL/min (>60); Glucose 154 mg/dL (74-106); Potassium 3.6 mmol/L (3.5-5.1); Sodium Level 126 mmol/L (136-145)
== END ==
PROVIDERS: PCP Family Medicine Geriatric Medicine; Referring Provider Internal Medicine Nephrology; Visit Provider Internal Medicine Nephrology
DX: E87.1 Hypo-osmolality and hyponatremia (principal)
CPT/HCPCS: 36415; 80048

== ENCOUNTER → 2021-06-01 12:06 | Outpatient (CLI) | payer MEDICARE, SELFPAY ==
[2020-04-28 12:27] VITALS: BMI 34.1
[2021-06-01 13:47] LABS: Absolute Lymphocyte Count 1.64 X10^3/uL (0.83-4.51); Absolute Neutrophil Count 3.6 X10^3/uL (2.0-7.7); Basophil# 0.02 X10^3/uL; Basophil% 0.3 % (0-1); Eosinophil# 0.03 X10^3/uL; Eosinophils% 0.5 % (0-5); Hemoglobin 10.4 g/dL (12.0-15.0); Lymphocyte # 1.64 X10^3/ul (0.83-4.51); Mean Corp Hgb Conc 32.5 g/dL (32-36); Mean Corpuscular Hgb 30.7 pg (27.0-32.0); Mean Corpuscular Volume 94.4 fL (81-99); Monocyte# 0.52 X10^3/uL; Monocyte% 8.9 % (0-10); NRBC Flagged by Analyzer 0 % (0-5); Neutrophil # 3.63 X10^3/uL (2.7-7.7); Platelet Count 317 K/mm3 (150-450); RBC Distribution Width CV 12.7 % (11.6-14.6); RBC Distribution Width SD 44.4 fl (35.1-43.9); Red Blood Count 3.39 M/mm3 (4.2-5.4); White Blood Count 5.9 K/mm3 (4.4-11.0)
[2021-06-01 14:21] LABS: Vitamin D,25 Hydroxy 32.9 ng/mL
[2021-06-01 14:25] LABS: ALB/GLOB Ratio 0.9 RATIO (0.9-2.4); AST(SGOT) 17 U/L (15-37); Alanine Aminotransfer ALT/SGPT 19 U/L (13-56); Albumin, Serum 3.3 g/dL (3.2-5.0); Alkaline Phosphatase 80 U/L (45-117); Anion Gap 7 (5-15); BUN 16 mg/dL (7-18); BUN/Creat Ratio 25.2 RATIO (10-20); Calcium,Total 8.9 mg/dL (8.5-10.1); Chloride 95 mmol/L (98-107); Creatinine, Serum 0.64 mg/dL (0.55-1.02); EST Glomerular Filtration Rate 96 mL/min (>60); Est Glom Filt Rate - Afr Amer 117 mL/min (>60); Globulin 3.7 g/dL (2.2-4.2); Glucose 90 mg/dL (74-106); Potassium 4.3 mmol/L (3.5-5.1); Sodium Level 128 mmol/L (136-145); Thyroid Stim Hormone (TSH) 0.86 uIU/mL (0.358-3.74)
== END ==
PROVIDERS: PCP Family Medicine Geriatric Medicine; Referring Provider Family Medicine Geriatric Medicine; Visit Provider Family Medicine Geriatric Medicine
DX: E55.9 Vitamin D deficiency, unspecified (principal); I10 Essential (primary) hypertension
CPT/HCPCS: 36415; 80053; 82306; 84443; 85025

== ENCOUNTER → 2021-06-15 | Outpatient (CLI) | payer MEDICARE, SELFPAY ==
[2020-04-28 12:27] VITALS: BMI 34.1
== END | disposition home or self-care (01) ==
LOC: LABSPEC 16:15
PROVIDERS: PCP Family Medicine Geriatric Medicine; Visit Provider Nurse Practitioner Women's Health
DX: R30.9 Painful micturition, unspecified (principal)
CPT/HCPCS: 87086; 87088; 87186

== ENCOUNTER → 2021-06-29 | Outpatient (CLI) | payer MEDICARE, SELFPAY ==
[2021-06-28 09:37] VITALS: BMI 34.1
== END | disposition home or self-care (01) ==
LOC: LABSPEC 11:04
PROVIDERS: PCP Family Medicine Geriatric Medicine; Visit Provider Nurse Practitioner Women's Health
DX: N28.9 Disorder of kidney and ureter, unspecified (principal)
CPT/HCPCS: 87086

== ENCOUNTER 2021-07-05 10:12 | Outpatient (CLI) | payer MEDICARE, SELFPAY ==
[2021-06-28 09:37] VITALS: BMI 34.1
== END 2021-07-05 23:59 | disposition short-term general hospital (02) ==
LOC: PSN 10:14
PROVIDERS: PCP Family Medicine Geriatric Medicine; Visit Provider Family Medicine Geriatric Medicine
DX: U07.1 COVID-19 (principal)
CPT/HCPCS: 87635; 87804; 87807; C9803; U0003; U0005

== ENCOUNTER 2021-07-08 16:45 | Outpatient (CLI) | payer MEDICARE, SELFPAY ==
[2021-06-28 09:37] VITALS: BMI 34.1
[2021-07-08 16:59] VITALS: BP 207/93; PULSE 66; RESP 16; TEMP 37; O2SAT 100; BMI 35.2
[2021-07-08] MEDS: 0.9% Saline Lock 10 ML Syringe IV (17:04)
[2021-07-08 17:48] VITALS: BP 193/82; PULSE 62; RESP 16; TEMP 37; O2SAT 100
[2021-07-08 18:48] VITALS: BP 213/95; PULSE 64; RESP 16; TEMP 36.9; O2SAT 98
== END 2021-07-08 23:59 | disposition home or self-care (01) ==
LOC: MS3OUT 16:45 → MS3 16:46
PROVIDERS: PCP Family Medicine Geriatric Medicine; Referring Provider Nurse Practitioner Adult Health; Visit Provider Nurse Practitioner Adult Health
DX: Z23 Encounter for immunization (principal); U07.1 COVID-19
CPT/HCPCS: J7050; M0243; A4216; Q0244

== ENCOUNTER 2021-08-03 11:29 | Outpatient (CLI) | payer MEDICARE, SELFPAY ==
[2021-06-28 09:37] VITALS: BMI 34.1
[2021-08-03 12:14] LABS: Absolute Lymphocyte Count 1.55 X10^3/uL (0.83-4.51); Absolute Neutrophil Count 3.6 X10^3/uL (2.0-7.7); Eosinophil# 0.02 X10^3/uL; Eosinophils% 0.3 % (0-5); Hematocrit 30.1 % (37-47); Hemoglobin 10.5 g/dL (12.0-15.0); Lymphocyte # 1.55 X10^3/ul (0.83-4.51); Lymphocyte % 25.7 % (19-41); Mean Corp Hgb Conc 34.9 g/dL (32-36); Mean Corpuscular Volume 88.8 fL (81-99); Mean Platelet Vol. 9.3 fl (6.2-12.0); Monocyte# 0.85 X10^3/uL; Monocyte% 14.1 % (0-10); NRBC Flagged by Analyzer 0 % (0-5); Neutrophil # 3.58 X10^3/uL (2.7-7.7); Neutrophil % 59.6 % (47-70); Platelet Count 274 K/mm3 (150-450); RBC Distribution Width CV 12.6 % (11.6-14.6); RBC Distribution Width SD 41.5 fl (35.1-43.9); Red Blood Count 3.39 M/mm3 (4.2-5.4)
[2021-08-03 12:48] LABS: ALB/GLOB Ratio 0.9 RATIO (0.9-2.4); AST(SGOT) 14 U/L (15-37); Alanine Aminotransfer ALT/SGPT 22 U/L (13-56); Albumin, Serum 2.9 g/dL (3.2-5.0); Alkaline Phosphatase 53 U/L (45-117); Anion Gap 6 (5-15); BUN 18 mg/dL (7-18); BUN/Creat Ratio 26.4 RATIO (10-20); Chloride 92 mmol/L (98-107); Creatinine, Serum 0.68 mg/dL (0.55-1.02); EST Glomerular Filtration Rate 89 mL/min (>60); Est Glom Filt Rate - Afr Amer 108 mL/min (>60); Globulin 3.3 g/dL (2.2-4.2); Glucose 85 mg/dL (74-106); Potassium 3.9 mmol/L (3.5-5.1); Protein, Total 6.2 g/dL (6.4-8.2); Sodium Level 124 mmol/L (136-145); Thyroid Stim Hormone (TSH) 1.14 uIU/mL (0.358-3.74)
== END 2021-08-03 23:59 | disposition short-term general hospital (02) ==
LOC: POLAB3 11:30
PROVIDERS: PCP Family Medicine Geriatric Medicine; Visit Provider Family Medicine Geriatric Medicine
DX: E55.9 Vitamin D deficiency, unspecified (principal); I10 Essential (primary) hypertension; N39.0 Urinary tract infection, site not specified
CPT/HCPCS: 36415; 80053; 82306; 84443; 85025; 87077; 87086; 87088; 87186

== ENCOUNTER 2021-08-04 15:18 | Outpatient (CLI) | payer MEDICARE, SELFPAY ==
[2021-06-28 09:37] VITALS: BMI 34.1
[2021-08-04 16:10] LABS: Anion Gap 5 (5-15); BUN 16 mg/dL (7-18); BUN/Creat Ratio 20.4 RATIO (10-20); Calcium,Total 8.1 mg/dL (8.5-10.1); Chloride 97 mmol/L (98-107); Creatinine, Serum 0.78 mg/dL (0.55-1.02); EST Glomerular Filtration Rate 76 mL/min (>60); Est Glom Filt Rate - Afr Amer 92 mL/min (>60); Glucose 113 mg/dL (74-106); Potassium 3.7 mmol/L (3.5-5.1); Sodium Level 128 mmol/L (136-145)
== END 2021-08-04 23:59 | disposition short-term general hospital (02) ==
LOC: PAVLAB 15:19
PROVIDERS: PCP Family Medicine Geriatric Medicine; Referring Provider Family Medicine Geriatric Medicine; Visit Provider Family Medicine Geriatric Medicine
DX: E87.1 Hypo-osmolality and hyponatremia (principal)
CPT/HCPCS: 36415; 80048

== ENCOUNTER 2021-08-17 09:02 | Outpatient (CLI) | payer MEDICARE, SELFPAY ==
[2021-06-28 09:37] VITALS: BMI 34.1
--- NOTE | 2021-08-17 09:06 | ART_ITS ---
Reason For Study: PAOD Procedure A bilateral lower extremity continuous wave Doppler with analog waveform analysis and ankle brachial indexes. Prelim called to Dr. Tam due to BP's. Manual BP taken 210/90. Pt to go to Dr. Tam's office. Left Segmental Pressures Left brachial= 215mmHg. Left posterior tibial artery = 221mmHg. Left dorsalis pedis artery = 238mmHg. The left dorsalis pedis waveforms are triphasic. The left posterior tibial artery waveforms are triphasic. Right Segmental Pressures Right brachial= 222mmHg. Right posterior tibial artery = 239mmHg. Right dorsalis pedis artery = 221mmHg. The right dorsalis pedis waveforms are triphasic. The right posterior tibial artery waveforms are triphasic. Indices The right ankle brachial index by the dorsalis pedis is 1.0. The right ankle brachial index by the posterior tibial artery is 1.08. The left ankle brachial index by the dorsalis pedis is 1.07. The left ankle brachial index by the posterior tibial artery is 1.0. VL/Ankle Brachial Index Interpretation Summary Triphasic Doppler waveforms are noted at ankle level bilaterally. Pulse-volume recordings appear satisfactory at ankle level bilaterally. Resting ankle-brachial indices are nor mal bilaterally. There is no evidence of significant arterial occlusive disease in the lower ext remities bilaterally. Ordering Physician: Sarabjit Tam Performed By: Enrique Abernathy RVT
== END 2021-08-17 23:59 | disposition home or self-care (01) ==
LOC: CVS 09:03
PROVIDERS: PCP Family Medicine Geriatric Medicine; Referring Provider Family Medicine Geriatric Medicine; Visit Provider Family Medicine Geriatric Medicine
DX: I73.9 Peripheral vascular disease, unspecified (principal)
CPT/HCPCS: 93922

== ENCOUNTER 2021-08-22 00:53 | Emergency (ER) | payer MEDICARE, SELFPAY ==
[2021-06-28 09:37] VITALS: BMI 34.1
[2021-08-22 00:54] VITALS: BP 222/144; BP 241/104; PULSE 69; PULSE 71; RESP 18; TEMP 36.5; O2SAT 98; BMI 36.5
--- NOTE | 2021-08-22 00:57 | EKG12_ITS ---
Test Reason : CCP Blood Pressure : / mmHG Vent. Rate : 071 BPM Atrial Rate : 071 BPM P-R Int : 152 ms QRS Dur : 082 ms QT Int : 390 ms P-R-T Axes : 034 -27 061 degrees QTc Int : 423 ms Sinus rhythm with Premature supraventricular complexes Left ventricular hypertrophy with repolarization abnormality Abnormal ECG Confirmed by ORION SILVER, YODIT ([id number]), editor dictionary JESSICA ANGUIANO ([id number]) on 08/25/2021 12:51:02 PM Referred By: SUZAN Confirmed By:YODIT SEARS MD
[2021-08-22] MEDS: cloNIDine HCl 0.1 MG Tablet PO ×2 (01:08→03:08)
[2021-08-22] MEDS: 0.9% Normal Saline 1,000 ML 150 ML IV (01:09)
--- NOTE | 2021-08-22 01:10 | RAD_ITS ---
STUDY: X-RAY CHEST REASON FOR EXAM: Female, 76 years old. chest pain TECHNIQUE: Single AP portable view of the chest. COMPARISON: None. FINDINGS: The lungs are clear and expanded. There is no demonstrated pleural abnormality. Normal size heart. Calcified mediastinal lymph nodes most likely represent an old infectious granulomatous process. Normal visualized pulmonary arteries. Normal visualized aortic arch and descending thoracic aorta. Normal visualized thoracic spine. There is degenerative osteoarthritis of the bilateral shoulders. Small hiatal hernia. RAD/Chest 1 View (Portable) IMPRESSION: Small hiatal hernia. No demonstrated acute cardiopulmonary process. Electronically Signed: Melvina Rebolledo MD at 1:50 EST ,
[2021-08-22 01:11] LABS: Absolute Lymphocyte Count 1.55 X10^3/uL (0.83-4.51); Absolute Neutrophil Count 3.7 X10^3/uL (2.0-7.7); Basophil# 0.02 X10^3/uL; Basophil% 0.3 % (0-1); Eosinophil# 0.07 X10^3/uL; Eosinophils% 1.2 % (0-5); Hematocrit 32.1 % (37-47); Hemoglobin 11.3 g/dL (12.0-15.0); Lymphocyte # 1.55 X10^3/ul (0.83-4.51); Lymphocyte % 25.7 % (19-41); Mean Corp Hgb Conc 35.2 g/dL (32-36); Mean Corpuscular Volume 90.9 fL (81-99); Mean Platelet Vol. 8.8 fl (6.2-12.0); Monocyte# 0.63 X10^3/uL; Monocyte% 10.4 % (0-10); NRBC Flagged by Analyzer 0 % (0-5); Neutrophil # 3.74 X10^3/uL (2.7-7.7); Neutrophil % 62.1 % (47-70); Platelet Count 290 K/mm3 (150-450); RBC Distribution Width CV 13.8 % (11.6-14.6); RBC Distribution Width SD 46.1 fl (35.1-43.9); Red Blood Count 3.53 M/mm3 (4.2-5.4)
[2021-08-22 01:30] LABS: Anion Gap 8 (5-15); BUN 22 mg/dL (7-18); BUN/Creat Ratio 30.2 RATIO (10-20); Calcium,Total 8.5 mg/dL (8.5-10.1); Chloride 95 mmol/L (98-107); Creatinine, Serum 0.73 mg/dL (0.55-1.02); EST Glomerular Filtration Rate 82 mL/min (>60); Est Glom Filt Rate - Afr Amer 100 mL/min (>60); Glucose 110 mg/dL (74-106); Potassium 3.9 mmol/L (3.5-5.1); Sodium Level 127 mmol/L (136-145); Troponin-I HS 31 pg/mL (3.0-54.0)
--- NOTE | 2021-08-22 01:45 | ED.VIS.CHEST ---
HPI History of Present Illness Chief Complaint: Chest Pain Detail of Chief Complaint: Left scapular pain, left-sided chest pain and left upper extremity pain Informant: patient Onset/Context/Timing Onset: Today and Hours Activity at onset: sudden and rest Timing: Continuous Quality: Positive for Aching Location: Left Parasternal Current Severity: Mild Maximum Severity: Moderate Worsened By: Movement of Arm (Possibly) Relieved By: Nothing Associated Symptoms: Positive for Dyspnea; Negative for Nausea, Vomiting, Diaphoresis, Cough, Fever, Lightheadedness, Acid Reflux and Palpitations Narrative Narrative: Patient is a 76-year-old woman with history of coronary disease, AICD, PAD, essential hypertension, chronic renal disease, hyperlipidemia who presents because of left-sided pain that did not get better after she was prescribed gabapentin by Dr. Heck. She states this pain is similar to the pain she had when she was diagnosed with cardiac disease however this is also similar to her neuropathic pain except is worse and it does not get better. Her only associated symptom was mild shortness of breath. The discomfort started while at rest. Discomfort has been present for several hours. She denies fever, chills night sweats. Denies ocular, visual auditory symptoms. She denies nausea, vomiting or diarrhea patient has juanpablo maroon-colored stool. She denies history of PE or DVT. She denies leg pain or discoloration. She states her legs were big and now they are skinny. Prior Similar Symptoms: Yes and With Prior NE CVD Risk Factors: Positive for Hypertension and Hypercholesterolemia; Negative for Diabetes PE Risk Factors: Negative for Recent Travel/Surgery, Recent Immobilization, Prior DVT or PE, Cancer and OCP + Smoking + >/=35 TAD Risk Factors: Positive for Hypertension; Negative for Marfan's Syndrome and Family History [facility] Medical History Anxiety and depression Atherosclerotic heart disease of [place] coronary artery without angina pectoris Chest pain CKD (chronic kidney disease) CVA (cerebral vascular accident) Difficulty balancing when standing Essential hypertension Fatigue Heart disease History of gastroesophageal reflux (GERD) HLD (hyperlipidemia) Hypertensive urgency Hyponatremia Hyponatremia Kidney disease Knee pain Near syncope Non-rheumatic mitral regurgitation PAD (peripheral artery disease) Pessary maintenance Presence of stent in coronary artery (~04/16/20) Skin cancer SOB (shortness of breath) Syncope and collapse Syncope due to orthostatic hypotension Vaginal wall prolapse Home Medications omeprazole 40 mg PO DAILY 03/17/20 [History Last Taken 04/16/20] carvedilol 25 mg tablet 25 mg PO BID #60 tab 08/11/20 [Rx Last Taken 08/24/20 25 MG] aspirin 81 mg tablet,delayed release 81 mg PO DAILY 06/15/21 [History Last Taken Unknown] atorvastatin 10 mg tablet 10 mg PO DAILY 06/15/21 [History Last Taken Unknown] losartan 50 mg tablet 50 mg PO BID 06/15/21 [History Last Taken Unknown] clonidine HCl 0.1 mg tablet 0.1 mg PO QHS PRN #30 tab 08/12/21 [Rx Last Taken Unknown] hydralazine 50 mg tablet 50 mg PO BID tab 08/12/21 [History Last Taken Unknown] sodium chloride 1 gram tablet 1,000 mg PO BID tab 08/12/21 [History Last Taken Unknown] hydrocodone-acetaminophen 1 tab PO Q6H PRN PRN 3 Days #10 tablet 08/22/21 [Rx Last Taken Unknown] Allergy/AdvReac Type Severity Reaction Status Date / Time amlodipine AdvReac Intermediate swelling Verified 08/12/21 14:23 Kpzorft-[id number]-[id number] Reductase AdvReac leg muscle Verified 08/12/21 14:23 Inhibitor weakness [Dxxsflj-Akb-Ioq Reductase Inhibitor] Family History Mother CAD (coronary artery disease) CVA (cerebral vascular accident) Brother CVA (cerebral vascular accident) Heart disease Kidney disease Diabetes Sister CAD (coronary artery disease) Sister Diabetes Brother Diabetes Brother CAD (coronary artery disease) Other Cancer Hypertension Surgical History History of bilateral cataract extraction History of renal stent Presence of coronary angioplasty implant and graft (~03/18/20) Social History (Updated 08/22/21 @ 02:[address] Seng Jensen MD) household members: family Smoking Status: Never smoker alcohol intake: never substance use type: does not use caffeine: No what type of physical activity do you participate in: none seatbelt use: always do you feel safe at home: Yes additional social history: - Retired 1 adopted daughter-, drug use ROS ROS ED Constitutional Constitutional ED: Denies chills, fever(s), subjective, sweats or weight loss Eyes Eyes: Reports none ENT ENT ED: Denies ear pain, rhinorrhea or sore throat Cardiovascular Cardiovascular: Reports as per HPI, chest pain and orthopnea; Denies palpitations, paroxysmal nocturnal dyspnea or racing heartbeat Respiratory/Chest Respiratory/Chest: Reports dyspnea and orthopnea; Denies cough, dyspnea on exertion, paroxysmal nocturnal dyspnea or sputum Gastrointestinal Gastrointestinal: Denies abdominal pain, constipation, diarrhea, melena, nausea or vomiting Genitourinary Genitourinary ED: Denies dysuria, hematuria or urinary frequency Musculoskeletal Musculoskeletal: Denies arthralgias, back pain, myalgias or neck pain Integumentary Denies rash Neurologic Neurologic: Denies headache(s), paresthesias or weakness Endocrine Endocrinology: Denies heat intolerance, polydipsia, polyphagia or polyuria Hematologic/Lymphatic Hematologic/Lymphatic: Denies easy bleeding or easy bruising Allergic/Immunologic Allergic/Immunologic ED: Denies mouth swelling or urticaria EXAM Physical Exam Const Vital Signs: 08/22/21 00:54 08/22/21 01:02 08/22/21 01:58 Temperature 97.7 F L Temperature Source Oral Pulse Rate 71 65 Respiratory Rate 18 20 H Respiratory Effort Normal Non-Labored Blood Pressure 241/104 H Blood Pressure Mean 149 Pulse Ox 98 97 Oxygen Delivery Method Room Air Room Air 08/22/21 02:07 08/22/21 02:49 Temperature Temperature Source Pulse Rate 65 66 Respiratory Rate 16 20 H Respiratory Effort Blood Pressure 200/81 H 194/71 H Blood Pressure Mean 120 112 Pulse Ox 97 97 Oxygen Delivery Method Room Air Room Air Positive well nourished, well developed and obese General Appearance ED: well developed and NAD; Negative for pallor Nutritional Appearance: obese HEENT Reports TM's clear and moist mucous membranes; Denies dry mucous membranes normocephalic and atraumatic; Negative for trauma or tenderness Tympanic Membrane ED: Yes TM's clear Mouth ED: No dry mucous membranes Mouth: No dry mucous membranes Eyes PERRL and EOMs intact bilaterally General Eye ED: Negative for pale conjunctiva or scleral icterus Neck no lymphadenopathy, supple and no JVD Chest Wall Chest Narrative: Trachea is midline. There is no in-store extra stridor. Patient does have significant submental adipose tissue. Resp normal respiratory effort and clear to auscultation bilaterally Effort and Inspection: respiratory distress Cardio regular rate, regular rhythm, S1 normal heart sound, S2 normal heart sound and no murmurs Rate: Negative for bradycardia or tachycardic Rhythm: Negative for abnormal rhythm Peripheral Pulses: pulses 2+ throughout GI normal to inspection, nondistended, normoactive bowel sounds, soft to palpation, non-tender, non-distended and no masses Back/Spine no CVA tenderness and no thoracic nor lumbar tenderness Cervical Spine: Negative for cervical spine tenderness Extremity normal to inspection Extremity Narrative: Pitting edema of 2 mm General Extremety ED: Yes edema; Negative for tenderness General Extremity: edema Neuro oriented x3 and CN's II-XII intact bilaterally Sensorium / Orientation: awake and alert Motor Exam: strength 5/5 throughout Psych mental status grossly normal Skin no rashes or lesions noted and no wounds General Skin Exam: Negative for jaundice or pallor Heart Score History: Slightly/Non-Suspicious ECG: Normal Age: >/= 65 years Risk Factors: >/= 3 Risk Factors or History of CAD Troponin: </= Normal Limit Score: 4 MDM MDM MDM Narrative Medical decision making narrative: Presents with atypical pain. Since she claims that this is similar to what she experienced with she had an NE will obtain cardiac work-up. This may be due to neuropathy. Since patient first and second troponin were both normal and delta is normal we will have patient follow-up with her pharmacy account director and discharged home Lab Data Attestation: I reviewed the patient's lab results. Lab results narrative: Patient has chronic anemia and laboratory results are unremarkable from prior. Patient has chronic hyponatremia and there is no significant change from prior results. Troponin is 31 which is still considered normal. Repeat troponin was ordered. Labs: Laboratory Results - last 24 hr 08/22/21 08/22/21 08/22/21 01:05 01:05 02:25 WBC 6.0 RBC 3.53 L Hgb 11.3 L Hct 32.1 L MCV 90.9 MCH 32.0 MCHC 35.2 RDW Std Deviation 46.1 H RDW Coeff of Lucía 13.8 Plt Count 290 MPV 8.8 Immature Gran % (Auto) 0.300 Neut % (Auto) 62.1 Lymph % (Auto) 25.7 [place] % (Auto) 10.4 H Eos % (Auto) 1.2 Baso % (Auto) 0.3 Absolute Neuts (auto) 3.7 Absolute Lymphs (auto) 1.55 Nucleated RBC % 0 Sodium 127 L Potassium 3.9 Chloride 95 L Carbon Dioxide 24.0 Anion Gap 8 BUN 22 H Creatinine 0.73 Estim Creat Clear Calc 56.90 Est GFR (MDRD) Af Amer 100 Est GFR (MDRD) Non-Af 82 BUN/Creatinine Ratio 30.2 H Glucose 110 H Calcium 8.5 Troponin I High Sens 31 34 Second troponin is normal as well. It is elevated. The delta is less than 7. Radiography Chest X-Ray - ED: 1 View and Read by ED Physician (Single view portable chest x-ray was interpreted by me at 0145. Patient has large granulomatous nodule noted inferior and to the right of the dedra. This is unchanged from prior. Cardiac silhouette size unremarkable. Lung parenchyma reveals chronic changes. Osseous structures are unremarkable.) Diagnostic Testing: Clinical Impression(s) from Imaging Studies Chest X-Ray 08/22/21 01:10 IMPRESSION: Small hiatal hernia. No demonstrated acute cardiopulmonary process. Electronically Signed: Melvina Rebolledo MD at 1:50 EST Reading Location ID and State: [facility] / [place] Tel , Service support , Discharge Plan Triage Chief Complaint: Chest Pain ED Provider: Seng Jensen Dx/Rx/DC Orders Clinical Impression: Acute left-sided thoracic back pain, Renal artery stenosis, Left-sided chest pain, Accelerated essential hypertension, Neuropathy Instructions: Treating Peripheral Neuropathy, ED Hypertension, Established, ED Neuropathy, Peripheral, ED Pain, Acute, Uncertain Cause Prescriptions: New hydrocodone-acetaminophen [hydrocodone-acetaminophen] 1 TABLET tablet 1 tab PO Q6H PRN PRN (Reason: Pain) 3 Days Qty: 10 RF: 0 No Action hydralazine 50 mg tablet 50 mg PO BID RF: 0 carvedilol 25 mg tablet 25 mg PO BID Qty: 60 RF: 11 losartan 50 mg tablet 50 mg PO BID RF: 0 atorvastatin 10 mg tablet 10 mg PO DAILY RF: 0 aspirin 81 mg tablet,delayed release (DR/EC) 81 mg PO DAILY RF: 0 sodium chloride 1 gram tablet 1,000 mg PO BID RF: 0 clonidine HCl 0.1 mg tablet 0.1 mg PO QHS PRN (Reason: hypertensive emergency) Qty: 30 RF: 3 omeprazole 40 MG capsule,delayed release(DR/EC) 40 mg PO DAILY RF: 0 Primary Care Provider: Sarabjit Tam Chi Referrals: Lei Jauregui MD [STAFF PHYSICIAN] - 3-5 Days Sarabjit Tam Chi, MD [Primary Care Provider] - 1 Week if not improving Disposition Disposition: Home, Self Care
[2021-08-22 01:58] VITALS: PULSE 65; RESP 20; O2SAT 97
[2021-08-22 02:07] VITALS: BP 200/81; PULSE 65; RESP 16; O2SAT 97
[2021-08-22 02:49] VITALS: BP 194/71; PULSE 66; RESP 20; O2SAT 97
[2021-08-22 02:58] LABS: Troponin-I HS 34 pg/mL (3.0-54.0)
[2021-08-22] MEDS: HYDROcodone Bitartrate/Apap 5/325 Tablet PO (03:46)
[2021-08-22 03:51] VITALS: BP 175/70; PULSE 63; RESP 17; O2SAT 96
== END 2021-08-22 03:51 | disposition home or self-care (01) ==
PROVIDERS: Emergency Provider Emergency Medicine; PCP Family Medicine Geriatric Medicine; Visit Provider Emergency Medicine
DX: M54.6 Pain in thoracic spine (principal); I70.1 Atherosclerosis of renal artery; I73.9 Peripheral vascular disease, unspecified; R07.89 Other chest pain; I12.9 Hypertensive chronic kidney disease with stage 1 through stage 4 chronic kidney disease, or unspecified chronic kidney disease; I25.10 Atherosclerotic heart disease of native coronary artery without angina pectoris; N18.9 Chronic kidney disease, unspecified; I25.2 Old myocardial infarction; G62.9 Polyneuropathy, unspecified; E78.00 Pure hypercholesterolemia, unspecified; K21.9 Gastro-esophageal reflux disease without esophagitis; E66.9 Obesity, unspecified; Z68.36 Body mass index [BMI] 36.0-36.9, adult; Z79.82 Long term (current) use of aspirin; Z79.899 Other long term (current) drug therapy; Z86.73 Personal history of transient ischemic attack (TIA), and cerebral infarction without residual deficits
CPT/HCPCS: 71045; 80048; 84484; 85025; 93005; 96360; 96361; 99285; J7030; A4216

== ENCOUNTER 2021-08-31 11:17 | Observation (INO) | payer MEDICARE, SELFPAY ==
[2021-06-28 09:37] VITALS: BMI 34.1
[2021-08-31] VITALS (12 sets, daily range): BP systolic 149–205; BP diastolic 66–84; PULSE 65–82; RESP 12–18; TEMP 35.9–36.8; O2SAT 95–98; BMI 34.9; BMI 32.5
--- NOTE | 2021-08-31 11:37 | EKG12_ITS ---
Test Reason : PAIN Blood Pressure : / mmHG Vent. Rate : 068 BPM Atrial Rate : 068 BPM P-R Int : 154 ms QRS Dur : 082 ms QT Int : 416 ms P-R-T Axes : 041 -24 059 degrees QTc Int : 442 ms Sinus rhythm with Premature atrial complexes Otherwise normal ECG Confirmed by YESSI SILVER, ANNA ([id number]), associate entertainment editor JESSICA ANGUIANO ([id number]) on 09/02/2021 1:32:02 PM Referred By: RAGHU Confirmed By:ANNA DICKSON MD
--- NOTE | 2021-08-31 11:37 | CT_ITS ---
STUDY: CT BRAIN WITHOUT CONTRAST REASON FOR EXAM: Female, 76 years old. Confusion RADIATION DOSAGE (If Supplied By Facility): CTDIvol = ( 44.99 ) mGy, DLP = ( 745.49 ) mGycm TECHNIQUE: Transaxial CT imaging of the brain was performed without administration of intravenous contrast material. Individualized dose optimization techniques were used for this CT. COMPARISON: Comparison is made with prior study dated 09/05/2019. FINDINGS: Normal soft tissue structures. There is hyperostosis frontalis internus. There is mild cerebral atrophy with widening of the extra-axial spaces and ventricular dilatation. There are areas of decreased attenuation within the white matter tracts of the supratentorial brain, consistent with microvascular disease changes. Stable small lacunar infarct in the insular cortex of the left temporal lobe. Normal brainstem. Normal cerebellum. There is no intracranial hemorrhage. There are no findings of an acute ischemic infarction. Atherosclerotic calcification of the vertebral arteries and cavernous portions of the internal carotid arteries bilaterally. Normal visualized paranasal sinuses. CT/Brain/Head without Contrast IMPRESSION: Chronic involutional changes of the brain. Electronically Signed: Remy Gavin MD at 12:57 EST ,
--- NOTE | 2021-08-31 11:38 | EDS_ITS ---
HPI History of Present Illness Chief Complaint: Other, Pain/Inj Informant: patient and family Narrative Narrative: Patient presents with bleeding after dental procedure. She had multiple teeth removed from upper jaw yesterday. She is on aspirin but did not take it this morning. However she is taking it every day up to this. She is having some bleeding still. She had an appointment 11:00 today with the dentist to recheck. However since she was still bleeding she was brought here. No other anticoagulation other than aspirin. Bleeding is hard to quantify. Also, during review of systems the patient and her family states that she seems foggy today. There is no focal deficit. She just seems a little slower to answer questions. She admits that she has been up all night and has not slept at all. No headache. No numbness tingling weakness balance changes. Only new medications are Motrin and amoxicillin. They do not know what medicines were given for the procedure yesterday. [facility] Medical History Anxiety and depression Atherosclerotic heart disease of [place] coronary artery without angina pectoris Chest pain CKD (chronic kidney disease) CVA (cerebral vascular accident) Difficulty balancing when standing Essential hypertension Fatigue Heart disease History of gastroesophageal reflux (GERD) HLD (hyperlipidemia) Hypertensive urgency Hyponatremia Hyponatremia Kidney disease Knee pain Near syncope Non-rheumatic mitral regurgitation PAD (peripheral artery disease) Pessary maintenance Presence of stent in coronary artery (~04/16/20) Skin cancer SOB (shortness of breath) Syncope and collapse Syncope due to orthostatic hypotension Vaginal wall prolapse Home Medications omeprazole 40 mg PO DAILY 03/17/20 [History Last Taken 04/16/20] aspirin 81 mg tablet,delayed release 81 mg PO DAILY 06/15/21 [History Last Taken Unknown] atorvastatin 10 mg tablet 10 mg PO DAILY 06/15/21 [History Last Taken Unknown] losartan 50 mg tablet 50 mg PO BID 06/15/21 [History Last Taken Unknown] clonidine HCl 0.1 mg tablet 0.1 mg PO QHS PRN #30 tab 08/12/21 [Rx Last Taken Unknown] sodium chloride 1 gram tablet 1,000 mg PO BID tab 08/12/21 [History Last Taken Unknown] hydrocodone-acetaminophen 1 tab PO Q6H PRN PRN 3 Days #10 tablet 08/22/21 [Rx Last Taken Unknown] hydralazine 100 mg tablet 100 mg PO TID #1 tab 08/23/21 [Rx Last Taken Unknown] carvedilol 25 mg tablet 25 mg PO BID #180 tab 08/25/21 [Rx Last Taken Unknown] Allergy/AdvReac Type Severity Reaction Status Date / Time amlodipine AdvReac Intermediate swelling Verified 08/12/21 14:23 Hgavwhk-AWY-[id number] Reductase AdvReac leg muscle Verified 08/12/21 14:23 Inhibitor weakness [Ygimabq-Prg-Ljk Reductase Inhibitor] Family History Mother CAD (coronary artery disease) CVA (cerebral vascular accident) Brother CVA (cerebral vascular accident) Heart disease Kidney disease Diabetes Sister CAD (coronary artery disease) Sister Diabetes Brother Diabetes Brother CAD (coronary artery disease) Other Cancer Hypertension Surgical History History of bilateral cataract extraction History of renal stent Presence of coronary angioplasty implant and graft (~03/18/20) Social History household members: family Smoking Status: Never smoker alcohol intake: never substance use type: does not use caffeine: No what type of physical activity do you participate in: none seatbelt use: always do you feel safe at home: Yes additional social history: - Retired 1 adopted daughter-, drug use ROS ROS ED Constitutional Constitutional ED: Denies chills or fever(s) Eyes Eyes: Denies blurry vision, change in vision or diplopia ENT ENT ED: Reports other Details: See history of present illness. ; Denies rhinorrhea Cardiovascular Cardiovascular: Denies chest pain or palpitations Respiratory/Chest Respiratory/Chest: Denies cough, dyspnea or sputum Gastrointestinal Gastrointestinal: Denies abdominal pain, nausea or vomiting Genitourinary Genitourinary ED: Denies dysuria Musculoskeletal Musculoskeletal: Denies arthralgias or myalgias Integumentary Denies rash Neurologic Neurologic: Reports other Details: See history of present illness. ; Denies headache(s), paresthesias or weakness Psychiatric Psychiatric: Denies depression Endocrine Endocrinology: Denies polyuria Allergic/Immunologic Allergic/Immunologic ED: Denies urticaria EXAM Physical Exam Const Vital Signs: 08/31/21 11:18 03/01/22 11:53 08/31/21 14:07 Temperature 96.6 F L Temperature Source Temporal Pulse Rate 70 70 Respiratory Rate 16 16 Respiratory Effort Normal Non-Labored Blood Pressure 149/84 H 200/78 H Blood Pressure Mean 105 118 Pulse Ox 98 98 Oxygen Delivery Method Room Air Room Air Positive well nourished and well developed General Appearance ED: well developed and NAD; Negative for cyanotic or diaphoretic HEENT Reports moist mucous membranes HEENT Narrative: Patient is upper dentures in place over the area that was subject to extractions yesterday. There is no bleeding outside of the dentures. There is a little bit of contusion on the soft palate behind them on the right. Dentures were removed. There is good clot in all areas. There are sutures intact. There is no active bleeding at this time. These actually look like they are healing quite well. Eyes General Eye ED: Negative for pale conjunctiva Neck no lymphadenopathy Chest Wall inspection of chest normal Resp normal respiratory effort and clear to auscultation bilaterally Effort and Inspection: Negative for pain with movement Auscultation: Negative for rales, rhonchi or wheezes Cardio regular rate and regular rhythm GI normal to inspection, nondistended, normoactive bowel sounds Palpation: soft Back/Spine no CVA tenderness Extremity normal to inspection Neuro oriented x3 Neuro Narrative: Patient is oriented to person place time and current events/[facility]. She does seem tired. NIH is 0. However, patient had trouble recognizing some of the names and her phone that her family members and normally this would not be a problem. Her granddaughter feels that her mental thought process is just not her typical. Sensorium / Orientation: alert Psych mental status grossly normal Skin no rashes or lesions noted MDM MDM MDM Narrative Medical decision making narrative: Patient's blood work shows unchanged hemoglobin from 22 August. Electrolytes show low sodium. She has a history of hyponatremia. However, I do not see any recent results that are as low as she has today. I talk with the family and her about this. She normally eats some salty foods trying to keep her sodium up. They have never figured out why her sodium drops. But the last few days she did not want her blood pressure to be too high to have the dental work so she was not eating salty foods. She now has trouble eating because of the dental work. I think with her sodium being 12 1, mild confusion and difficulty taking p.o. over the next few days because of her dental work, we will call about admission. Her blood pressure is elevated on second reading. However she is due for hydralazine and is being given that at this time. Lab Data Attestation: I reviewed the patient's lab results. Labs: Laboratory Results - last 24 hr 08/31/21 08/31/21 08/31/21 12:03 12:03 13:07 WBC 6.7 RBC 3.67 L Hgb 11.3 L Hct 32.9 L MCV 89.6 MCH 30.8 MCHC 34.3 RDW Std Deviation 44.5 H RDW Coeff of Lucía 13.3 Plt Count 290 MPV 9.0 Immature Gran % (Auto) 0.400 Neut % (Auto) 73.5 H Lymph % (Auto) 16.7 L [place] % (Auto) 9.3 Eos % (Auto) 0.0 Baso % (Auto) 0.1 Absolute Neuts (auto) 4.9 Absolute Lymphs (auto) 1.12 Nucleated RBC % 0 Sodium 121 L Potassium 4.0 Chloride 85 L Carbon Dioxide 25.0 Anion Gap 11 BUN 14 Creatinine 0.75 Estim Creat Clear Calc 58.36 Est GFR (MDRD) Af Amer 97 Est GFR (MDRD) Non-Af 80 BUN/Creatinine Ratio 18.8 Glucose 123 H Calcium 8.5 Urine Color Yellow Urine Clarity Sl. Cloudy Urine pH 6.0 Ur Specific [place] 1.015 Urine Protein 15 H Urine Glucose (UA) Normal Urine Ketones 15 H Urine Occult Blood Negative Urine Nitrite Negative Urine Bilirubin Negative Urine Urobilinogen Normal Ur Leukocyte Esterase Negative Urine RBC 0 SEEN Urine WBC 0 SEEN Ur Squamous Epith Cells 5-10 SEEN Urine Bacteria 1+ Urine Mucus 0 SEEN Radiography Diagnostic Testing: Clinical Impression(s) from Imaging Studies Brain CT 08/31/21 11:37 IMPRESSION: Chronic involutional changes of the brain. Electronically Signed: Remy Gavin MD at 12:57 EST , Discharge Plan Dx/Rx/DC Orders Clinical Impression: Acute hyponatremia, Confusion Disposition Disposition: Acute Care Hospital [facility]
[2021-08-31 12:21] LABS: Absolute Lymphocyte Count 1.12 X10^3/uL (0.83-4.51); Absolute Neutrophil Count 4.9 X10^3/uL (2.0-7.7); Basophil# 0.01 X10^3/uL; Basophil% 0.1 % (0-1); Hematocrit 32.9 % (37-47); Hemoglobin 11.3 g/dL (12.0-15.0); Lymphocyte # 1.12 X10^3/ul (0.83-4.51); Lymphocyte % 16.7 % (19-41); Mean Corp Hgb Conc 34.3 g/dL (32-36); Mean Corpuscular Hgb 30.8 pg (27.0-32.0); Mean Corpuscular Volume 89.6 fL (81-99); Monocyte# 0.62 X10^3/uL; Monocyte% 9.3 % (0-10); NRBC Flagged by Analyzer 0 % (0-5); Neutrophil # 4.91 X10^3/uL (2.7-7.7); Neutrophil % 73.5 % (47-70); Platelet Count 290 K/mm3 (150-450); RBC Distribution Width CV 13.3 % (11.6-14.6); RBC Distribution Width SD 44.5 fl (35.1-43.9); Red Blood Count 3.67 M/mm3 (4.2-5.4); White Blood Count 6.7 K/mm3 (4.4-11.0)
[2021-08-31 12:37] LABS: Anion Gap 11 (5-15); BUN 14 mg/dL (7-18); BUN/Creat Ratio 18.8 RATIO (10-20); Calcium,Total 8.5 mg/dL (8.5-10.1); Chloride 85 mmol/L (98-107); Creatinine, Serum 0.75 mg/dL (0.55-1.02); EST Glomerular Filtration Rate 80 mL/min (>60); Est Glom Filt Rate - Afr Amer 97 mL/min (>60); Estimated Creatinine Clearance 58.36 ml/min; Glucose 123 mg/dL (74-106); Sodium Level 121 mmol/L (136-145)
[2021-08-31 13:13] LABS: Mucous, Urine 0 SEEN /hpf (<or=2+); Red Blood Cells-Urine 0 SEEN /hpf (0-5); White Blood Cells 0 SEEN /hpf (0-5)
[2021-08-31 13:18] LABS: Color, Urine Yellow (Yellow); Glucose, Dipstick Normal (Normal); Ketone-Dipstick 15 mg/dl (Negative); Leukocyte Esterase-Dipstick Negative /ul (Negative); Nitrite-Dipstick Negative (Negative); Occult Blood-Urine Negative /ul (Negative); Protein-Dipstick 15 mg/dl (Negative); Specific Gravity, Urine 1.015 (1.002-1.030); Urine Bilirubin Dipstick Negative (Negative); Urine Clarity Sl. Cloudy (Clear); Urine Urobilinogen Normal (Normal)
[2021-08-31 13:36] LABS: Bacteria 1+ /hpf (None Seen); Squamous Epithelial Cells - UA 5-10 SEEN /hpf (5-10)
--- NOTE | 2021-08-31 14:10 | ED.RN ---
DR. INTERIANO NOTIFIED OF PT. BP, AND PT. STATED THEY NORMALLY TAKE 50MG HYDRALAZINE AT 1400. V.O. PUT IN FOR MEDICATION.
[2021-08-31] MEDS: hydrALAZINE 50 MG Tablet PO (14:31)
--- NOTE | 2021-08-31 14:48 | NURSING ---
PCU OBS JOPPERI HYPONATREMIA
--- NOTE | 2021-08-31 14:53 | PCM.HP.STD ---
HPI - General General Date of Admission: 08/31/21 Date of Service: 08/31/21 Chief Complaint: confusion HPI Narrative SANJIV PEOPLES, is a 76 F who presents presents with confusion. Patient was noted to be more confused than her baseline per family and brought into the emergency room. Patient work-up in emergency room showed that her sodium was 121 which was lower than her baseline. Patient does have a history of hyponatremia does take salt tablets. Yesterday, patient underwent several tooth extractions and been having some bleeding since then. Currently, the patient alert and oriented x3 and there is no family present at bedside to verify the issues of confusion. Patient did have a head CT that showed no acute process. Patient's blood pressure was very elevated when she presented to at 200/78. Patient was ordered a dose of her home hydralazine. The hospital service was contacted because of the concern for the confusion and her hyponatremia. [facility] Medical History Anxiety and depression Atherosclerotic heart disease of [place] coronary artery without angina pectoris Chest pain CKD (chronic kidney disease) CVA (cerebral vascular accident) Difficulty balancing when standing Essential hypertension Fatigue Heart disease History of gastroesophageal reflux (GERD) HLD (hyperlipidemia) Hypertensive urgency Hyponatremia Hyponatremia Kidney disease Knee pain Near syncope Non-rheumatic mitral regurgitation PAD (peripheral artery disease) Pessary maintenance Presence of stent in coronary artery (~04/16/20) Skin cancer SOB (shortness of breath) Syncope and collapse Syncope due to orthostatic hypotension Vaginal wall prolapse Home Medications omeprazole 40 mg PO DAILY 03/17/20 [History Last Taken 08/30/21] aspirin 81 mg tablet,delayed release 81 mg PO DAILY 06/15/21 [History Last Taken 08/30/21] atorvastatin 10 mg tablet 10 mg PO DAILY 06/15/21 [History Last Taken 08/31/21] losartan 50 mg tablet 50 mg PO BID 06/15/21 [History Last Taken 08/31/21] clonidine HCl 0.1 mg tablet 0.1 mg PO QHS PRN #30 tab 08/12/21 [Rx Last Taken Unknown] hydrocodone-acetaminophen 1 tab PO Q6H PRN PRN 3 Days #10 tablet 08/22/21 [Rx Last Taken Unknown] carvedilol 25 mg tablet 25 mg PO BID #180 tab 08/25/21 [Rx Last Taken 08/31/21] amoxicillin 500 mg PO TID 08/31/21 [History Last Taken Unknown] buspirone 5 mg PO TID 08/31/21 [History Last Taken 08/30/21] citalopram 10 mg PO QHS 08/31/21 [History Last Taken Unknown] gabapentin 100 mg PO TID 08/31/21 [History Last Taken Unknown] hydralazine 50 mg PO DAILY@1400 08/31/21 [History Last Taken 08/31/21] hydralazine 100 mg PO BID 08/31/21 [History Last Taken 08/31/21] ibuprofen 600 mg PO TID 08/31/21 [History Last Taken Unknown] Allergy/AdvReac Type Severity Reaction Status Date / Time amlodipine AdvReac Intermediate swelling Verified 08/12/21 14:23 Hiycmvm-ILU-DfP Reductase AdvReac leg muscle Verified 08/12/21 14:23 Inhibitor weakness [Jmtmbcx-Met-Vug Reductase Inhibitor] Family History Mother CAD (coronary artery disease) CVA (cerebral vascular accident) Brother CVA (cerebral vascular accident) Heart disease Kidney disease Diabetes Sister CAD (coronary artery disease) Sister Diabetes Brother Diabetes Brother CAD (coronary artery disease) Other Cancer Hypertension Surgical History History of bilateral cataract extraction History of renal stent Presence of coronary angioplasty implant and graft (~03/18/20) Social History household members: family Smoking Status: Never smoker alcohol intake: never substance use type: does not use caffeine: No what type of physical activity do you participate in: none seatbelt use: always do you feel safe at home: Yes additional social history: - Retired 1 adopted daughter-, drug use ROS ROS Narrative Does complain of chest pain rating to her left arm. Some bleeding from her sockets from where the teeth were extracted. Headache though denies any blurred vision or diplopia. All review of systems were negative except as mentioned above in the history of present illness and the other review of systems. Vital Signs Vital Signs Vital Signs: 08/31/21 11:18 08/31/21 11:53 08/31/21 14:07 Temperature 35.9 C L Temperature Source Temporal Pulse Rate 70 70 Respiratory Rate 16 16 Respiratory Effort Normal Non-Labored Blood Pressure 149/84 H 200/78 H Blood Pressure Mean 105 118 Pulse Ox 98 98 Oxygen Delivery Method Room Air Room Air Weight Weight: 78.471 kg Body Mass Index (BMI) 34.9 Physical Exam Const alert, oriented x3, no apparent distress and average body habitus General Appearance: cooperative HEENT normocephalic HEENT Narrative: Submandibular edema. Mallampati 4. To sockets appear to be clean and no active bleeding that I can appreciate Eyes conjunctivae normal Eyes Narrative: No icterus Neck no lymphadenopathy Resp normal respiratory effort, no retractions, no use of accessory muscles and clear to auscultation bilaterally Cardio regular rate, regular rhythm, S1 normal heart sound and S2 normal heart sound GI normal to inspection, nondistended, normoactive bowel sounds, soft to palpation, non-tender, non-distended and hepatosplenomegaly Extremity normal to inspection and full ROM Skin no rashes or lesions noted, no wounds, skin turgor normal and no jaundice Neuro oriented x3 Sensorium / Orientation: awake and alert Psych affect normal Results Lab / Micro Data Attestation: I reviewed the patient's lab results. Result Diagrams: 08/31/21 12:03 08/31/21 12:03 Labs: Laboratory Results - last 24 hr 08/31/21 12:03: WBC 6.7, RBC 3.67 L, Hgb 11.3 L, Hct 32.9 L, MCV 89.6, MCH 30.8, MCHC 34.3, RDW Std Deviation 44.5 H, RDW Coeff of Lucía 13.3, Plt Count 290, MPV 9.0, Immature Gran % (Auto) 0.400, Neut % (Auto) 73.5 H, Lymph % (Auto) 16.7 L, [place] % (Auto) 9.3, Eos % (Auto) 0.0, Baso % (Auto) 0.1, Absolute Neuts (auto) 4.9, Absolute Lymphs (auto) 1.12, Nucleated RBC % 0 08/31/21 12:03: Sodium 121 L, Potassium 4.0, Chloride 85 L, Carbon Dioxide 25.0, Anion Gap 11, BUN 14, Creatinine 0.75, Estim Creat Clear Calc 58.36, Est GFR (MDRD) Af Amer 97, Est GFR (MDRD) Non-Af 80, BUN/Creatinine Ratio 18.8, Glucose 123 H, Calcium 8.5 08/31/21 13:07: Urine Color Yellow, Urine Clarity Sl. Cloudy, Urine pH 6.0, Ur Specific [place] 1.015, Urine Protein 15 H, Urine Glucose (UA) Normal, Urine Ketones 15 H, Urine Occult Blood Negative, Urine Nitrite Negative, Urine Bilirubin Negative, Urine Urobilinogen Normal, Ur Leukocyte Esterase Negative, Urine RBC 0 SEEN, Urine WBC 0 SEEN, Ur Squamous Epith Cells 5-10 SEEN, Urine Bacteria 1+, Urine Mucus 0 SEEN Radiology Impression Brain CT 08/31/21 11:37 IMPRESSION: Chronic involutional changes of the brain. Electronically Signed: Remy Gavin MD at 12:57 EST , Assessment & Plan Assessment/Plan (1) Acute hyponatremia: (2) Confusion: (3) Hypertensive urgency: PLAN: 1. Hypertensive urgency Patient describes having labile hypertension. Patient takes 25 mg of carvedilol twice daily, as needed clonidine, hydralazine 250 mg total daily, losartan 50 mg twice daily Patient has swelling with amlodipine. We will start her on a low-dose of amlodipine 2.5 mg daily with first dose to be given today. That seems to be refractory may need to consider scheduled dosing of clonidine or Catapres patch. I am going to drop the 50 mg of hydralazine is doses greater than 200 mg daily could potentially cause a lupus-like reaction. May consider diuretics but would not do any thiazides given her chronic hyponatremia 2. 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 3. Confusion Noted by family members Patient alert and oriented x3 for me If patient was confused at home feel that is related with her hyponatremia or her blood pressure but likely given her age and having recently undergone tooth extraction and just being uncomfortable from that. Head CT was negative No additional work-up at this time unless new events occur. 4. VTE prophylaxis: Not indicated given her current observation status 5. COVID-19 vaccination status: Incomplete. Patient has received 1 dose of Moderna. She states that she did previously have COVID-19. Did recommend patient get the second shot of the [place]. 6. CODE STATUS: Addressed with the patient. Patient wishes to be DNR Comfort Care arrest. Charges/Coding Visit Charges OBSV E&M: 58979 Initial observation care L3
--- NOTE | 2021-08-31 16:13 | EKG12_ITS ---
Test Reason : CP ADMIT Blood Pressure : / mmHG Vent. Rate : 068 BPM Atrial Rate : 068 BPM P-R Int : 166 ms QRS Dur : 086 ms QT Int : 426 ms P-R-T Axes : 013 -25 058 degrees QTc Int : 452 ms Normal sinus rhythm Left ventricular hypertrophy with repolarization abnormality Abnormal ECG When compared with ECG of 22-AUG-2021 00:56, Premature supraventricular complexes are no longer Present Confirmed by YESSI SILVER, ANNA ([id number]), social media editor JESSICA ANGUIANO ([id number]) on 09/02/2021 1:41:39 PM Referred By: JIA Confirmed By:ANNA DICKSON MD
[2021-08-31] MEDS: amLODIPine 2.5 MG Tablet PO (16:29)
[2021-08-31] MEDS: HYDROcodone Bitartrate/Apap 5/325 Tablet PO ×2 (16:29→23:06)
[2021-08-31 17:41] LABS: Troponin-I HS 22 pg/mL (3.0-54.0)
[2021-08-31] MEDS: AMOXICILLIN 500 MG CAPSULE PO (20:09)
[2021-08-31] MEDS: Ibuprofen 600 MG Tablet PO (20:09)
[2021-08-31] MEDS: hydrALAZINE 50 MG Tablet 100 MG PO (20:09)
[2021-08-31] MEDS: busPIRone 5 MG Tablet PO (20:09)
[2021-08-31] MEDS: Citalopram 10 MG Tablet PO (20:10)
[2021-08-31] MEDS: Carvedilol 25 MG Tablet PO (20:10)
[2021-08-31] MEDS: Losartan Potassium 50 MG Tablet PO (20:10)
[2021-08-31] MEDS: Sodium Chloride 1 GM Tablet PO (20:11)
[2021-08-31] MEDS: Atorvastatin Calcium 10 MG Tablet PO (20:11)
[2021-08-31] MEDS: Gabapentin 100 MG Capsule PO (20:11)
[2021-08-31] MEDS: Ondansetron 4 MG/2 ML Vial IV (21:53)
[2021-09-01] VITALS (10 sets, daily range): BP systolic 129–175; BP diastolic 49–70; PULSE 65–73; RESP 17–18; TEMP 36.4–36.9; O2SAT 93–97
[2021-09-01] MEDS: hydrALAZINE 50 MG Tablet 100 MG PO ×2 (03:48→20:01)
[2021-09-01] MEDS: Losartan Potassium 50 MG Tablet PO ×2 (03:48→20:03)
[2021-09-01] MEDS: Ibuprofen 600 MG Tablet PO ×3 (03:49→20:02)
[2021-09-01] MEDS: HYDROcodone Bitartrate/Apap 5/325 Tablet PO (05:23)
[2021-09-01] MEDS: busPIRone 5 MG Tablet PO ×3 (05:25→20:03)
[2021-09-01] MEDS: Gabapentin 100 MG Capsule PO ×3 (05:25→20:02)
[2021-09-01] MEDS: AMOXICILLIN 500 MG CAPSULE PO ×3 (05:25→20:02)
[2021-09-01 06:21] LABS: ALB/GLOB Ratio 0.9 RATIO (0.9-2.4); AST(SGOT) 13 U/L (15-37); Alanine Aminotransfer ALT/SGPT 18 U/L (13-56); Albumin, Serum 2.8 g/dL (3.2-5.0); Alkaline Phosphatase 63 U/L (45-117); Anion Gap 9 (5-15); BUN 12 mg/dL (7-18); BUN/Creat Ratio 21.3 RATIO (10-20); Calcium,Total 8.2 mg/dL (8.5-10.1); Chloride 89 mmol/L (98-107); Creatinine, Serum 0.56 mg/dL (0.55-1.02); EST Glomerular Filtration Rate 111 mL/min (>60); Est Glom Filt Rate - Afr Amer 134 mL/min (>60); Estimated Creatinine Clearance 54.44 ml/min; Globulin 3.2 g/dL (2.2-4.2); Glucose 111 mg/dL (74-106); Potassium 3.7 mmol/L (3.5-5.1); Sodium Level 122 mmol/L (136-145)
[2021-09-01] MEDS: Carvedilol 25 MG Tablet PO ×2 (08:47→20:03)
[2021-09-01] MEDS: Aspirin E.C. 81 MG Tablet PO (08:47)
[2021-09-01] MEDS: Pantoprazole Sodium 40 MG Tablet PO (08:47)
[2021-09-01] MEDS: Sodium Chloride 1 GM Tablet PO ×2 (08:47→20:00)
[2021-09-01] MEDS: amLODIPine 2.5 MG Tablet PO (08:47)
--- NOTE | 2021-09-01 15:30 | CASEMGMT ---
YESSY GANDHI NOTE: Intro role of CM to patient and HAMILTON form explained re: Observation status for treatment of hyponatremia. Explained hospitalization will be paid per her insurance policy for Outpatient billing and condition will continue to be evaluated for Inpt necessity. Also let pt know that [facility] sends paper in the billing packet with their phone number if questions arise. Pt verbalizes understanding and denies having any questions. Form signed, copy made and placed in chart, and original given to pt. Charly HAMILTON RN CM
--- NOTE | 2021-09-01 17:03 | PCM.PN.HOSP ---
Subjective Subjective Follow-up on acute metabolic encephalopathy/hypertensive urgency/chronic hyponatremia: Patient was seen and examined. She is alert oriented x3. No acute events overnight. Blood pressure is better controlled. Objective Data Objective Data Vital Signs: Vital Signs Temp Pulse Resp BP Pulse Ox 97.6 F L 72 18 129/49 H 97 09/01/21 14:45 09/01/21 14:45 09/01/21 14:45 09/01/21 14:45 09/01/21 14:45 Oxygen Delivery Method Room Air Weight: 73.2 kg Body Mass Index (BMI) 32.5 Intake & Output: Intake and Output for Last 24 Hours 08/30/21 08/31/21 09/01/21 23:59 23:59 23:59 Intake Total 360 / 360 480 / 480 Output Total 400 / 400 550 / 550 Balance -40 / -40 -70 / -70 Lab / Micro Data Result Diagrams: 08/31/21 12:03 09/01/21 05:21 Labs: Laboratory Results - last 24 hr 08/31/21 16:33: Troponin I High Sens 09/01/21 05:21: Sodium 122 L, Potassium 3.7, Chloride 89 L, Carbon Dioxide 24.0, Anion Gap 9, BUN 12, Creatinine 0.56, Estim Creat Clear Calc 54.44, Est GFR (MDRD) Af Amer 134, Est GFR (MDRD) Non-Af 111, BUN/Creatinine Ratio 21.3 H, Glucose 111 H, Calcium 8.2 L, Total Bilirubin 0.40, AST 13 L, ALT 18, Alkaline Phosphatase 63, Total Protein 6.0 L, Albumin 2.8 L, Globulin 3.2, Albumin/Globulin Ratio 0.9 Physical Exam Narrative Physical exam: General: Alert, Oriented x3, Cooperative, No apparent distress, appears very frail HEENT: Atraumatic Oral: Moist Mucosa Neck: Supple Lungs: Diminished to auscultation Cardiovascular: HS I+II, regular, no murmurs Abdomen: Bowel Sounds Present, Soft, Non Tender Extremities: No edema Assessment & Plan Assessment/Plan (1) Hypertensive urgency: (2) HLD (hyperlipidemia): QUALIFIERS: Hyperlipidemia type: unspecified Qualified Code(s): E78.5 - Hyperlipidemia, unspecified (3) Essential hypertension: (4) Hyponatremia: (5) Acute hyponatremia: (6) Confusion: PLAN: 1. Hypertensive urgency, resolved BP is stable, at goal Continue on hydralazine, losartan, Coreg and amlodipine Will monitor 2. Hyponatremia, chronic, secondary to SIADH, on salt tablets Sodium is 122 today, was 121 yesterday, previous sodium was 127 Continue to monitor 3. Metabolic encephalopathy, appears resolved 4. DVT prophylaxis - Heparin SC Charges/Coding Visit Charges Inpatient E&M: 11615 Subs Hosp L2
[2021-09-01] MEDS: Atorvastatin Calcium 10 MG Tablet PO (20:02)
[2021-09-01] MEDS: Citalopram 10 MG Tablet PO (20:03)
--- NOTE | 2021-09-01 20:03 | NURSING ---
pt bp 150s. pt said it will be 200 if i dont give her bp meds next time. Meds given per request
[2021-09-02] VITALS (14 sets, daily range): BP systolic 104–177; BP diastolic 52–76; PULSE 63–76; RESP 16–18; TEMP 36.4–36.7; O2SAT 93–96
[2021-09-02] MEDS: HYDROcodone Bitartrate/Apap 5/325 Tablet PO ×2 (04:35→14:14)
[2021-09-02 05:47] LABS: Absolute Lymphocyte Count 1.41 X10^3/uL (0.83-4.51); Absolute Neutrophil Count 3.3 X10^3/uL (2.0-7.7); Basophil# 0.02 X10^3/uL; Basophil% 0.4 % (0-1); Eosinophil# 0.02 X10^3/uL; Eosinophils% 0.4 % (0-5); Hematocrit 30.8 % (37-47); Hemoglobin 10.9 g/dL (12.0-15.0); Lymphocyte # 1.41 X10^3/ul (0.83-4.51); Lymphocyte % 26.3 % (19-41); Mean Corp Hgb Conc 35.4 g/dL (32-36); Mean Corpuscular Hgb 31.7 pg (27.0-32.0); Mean Corpuscular Volume 89.5 fL (81-99); Mean Platelet Vol. 9.3 fl (6.2-12.0); Monocyte# 0.61 X10^3/uL; Monocyte% 11.4 % (0-10); NRBC Flagged by Analyzer 0 % (0-5); Neutrophil # 3.25 X10^3/uL (2.7-7.7); Neutrophil % 60.4 % (47-70); Platelet Count 265 K/mm3 (150-450); RBC Distribution Width CV 13.5 % (11.6-14.6); RBC Distribution Width SD 44.2 fl (35.1-43.9); Red Blood Count 3.44 M/mm3 (4.2-5.4); White Blood Count 5.4 K/mm3 (4.4-11.0)
[2021-09-02 06:11] LABS: ALB/GLOB Ratio 0.8 RATIO (0.9-2.4); AST(SGOT) 14 U/L (15-37); Alanine Aminotransfer ALT/SGPT 18 U/L (13-56); Albumin, Serum 2.7 g/dL (3.2-5.0); Alkaline Phosphatase 58 U/L (45-117); Anion Gap 6 (5-15); BUN 15 mg/dL (7-18); BUN/Creat Ratio 18.5 RATIO (10-20); Calcium,Total 8.1 mg/dL (8.5-10.1); Chloride 91 mmol/L (98-107); Creatinine, Serum 0.81 mg/dL (0.55-1.02); EST Glomerular Filtration Rate 73 mL/min (>60); Est Glom Filt Rate - Afr Amer 88 mL/min (>60); Estimated Creatinine Clearance 67.21 ml/min; Globulin 3.2 g/dL (2.2-4.2); Glucose 102 mg/dL (74-106); Potassium 3.8 mmol/L (3.5-5.1); Protein, Total 5.9 g/dL (6.4-8.2); Sodium Level 123 mmol/L (136-145)
[2021-09-02] MEDS: busPIRone 5 MG Tablet PO ×3 (06:26→20:50)
[2021-09-02] MEDS: Ibuprofen 600 MG Tablet PO (06:27)
[2021-09-02] MEDS: Gabapentin 100 MG Capsule PO ×3 (06:27→20:51)
[2021-09-02] MEDS: AMOXICILLIN 500 MG CAPSULE PO ×3 (06:27→20:47)
--- NOTE | 2021-09-02 08:30 | NS ---
Call from dietary staff- pt upset about mechanical soft diet order. Pt states she just had some teeth pulled and is able to eat soft foods without difficulty. Discussed w/ hospitalist- okay to change to easy to chew consistency. Byron Damon MS RDN LD
[2021-09-02] MEDS: Pantoprazole Sodium 40 MG Tablet PO (09:24)
[2021-09-02] MEDS: Carvedilol 25 MG Tablet PO ×2 (09:24→20:46)
[2021-09-02] MEDS: Sodium Chloride 1 GM Tablet PO ×2 (09:24→20:52)
[2021-09-02] MEDS: Losartan Potassium 50 MG Tablet PO ×2 (09:25→20:51)
[2021-09-02] MEDS: Aspirin E.C. 81 MG Tablet PO (09:25)
[2021-09-02] MEDS: amLODIPine 2.5 MG Tablet PO (09:25)
--- NOTE | 2021-09-02 11:51 | CASEMGMT ---
YESSY GANDHI assessment: Face to Face with patient for initial transition planning/care coordination assessment. YESSY GANDHI introduced self and role at [facility], pt voices understanding and consents to assessment. Pt is sitting in chair in no distress on room air. Care providers, pharmacy, and demographics verified/updated. Presentation: Pt had upper teeth pulled yesterday and has been bleeding since-pt states sent in by dentist Admitting dx: Hyponatremia. hypertensive urgency PCP: Yonatan Specialists: Juventino, cardio; Tres nephro Preferred [facility]acy: [facility] Insurance: [employer] Prescription Benefit: [employer] Living Will/HPOA: Pt states has LW/HPOA and is aware that they are not on file at [facility]. Pt states her sis-in-law, Zuly Stevens, is HPOA. LNOK: Zuly Stevens, sis-in-law/HPOA; Dory Cast, granddaughter; Sima George, friend Living Arrangements: Pt lives in [address] with no steps with granddaughter, Dory, who assists her with meals/laundry/etc and states no concerns at home. Pt states is independent with bathing/dressing. Transportation: Pt states drives self and states no transportation concerns. DME/HHC: Pt has a rollator and shower chair and states no need for any further DME. Pt states no hx of HHC or SNF and denies need for any further therapy at this time. Pt states no concerns with going home with granddaughter at discharge. Pt is retired. Pt states does not smoke cigarettes or drink ETOH. Pt states no further concerns/needs. CM to follow for any further discharge planning/needs. Advised pt to ask for CM if any further questions/concerns/needs arise, voices understanding. Pt Goal: Home Plan: Home with family support Mae KRISHNAMURTHY CM
[2021-09-02] MEDS: 0.9% Normal Saline 1,000 ML 125 ML IV ×2 (12:54→20:46)
--- NOTE | 2021-09-02 15:08 | PCM.PN.HOSP ---
Subjective Subjective Follow-up on acute metabolic encephalopathy/hypertensive urgency/chronic hyponatremia: Patient was seen and examined. Her blood pressures were too low and she is feeling dizzy. Her static vitals were positive. Changes were made to blood pressure medications. Objective Data Objective Data Vital Signs: Vital Signs Temp Pulse Resp BP Pulse Ox 97.8 F 68 16 138/60 H 94 09/02/21 14:16 09/02/21 14:16 09/02/21 14:16 09/02/21 14:16 09/02/21 14:16 Oxygen Delivery Method Room Air Weight: 73.2 kg Body Mass Index (BMI) 32.5 Intake & Output: Intake and Output for Last 24 Hours 08/31/21 09/01/21 09/02/21 23:59 23:59 23:59 Intake Total 360 / 360 480 / 800 640 / 640 Output Total 400 / 400 550 / 700 350 / 350 Balance -40 / -40 -70 / 100 290 / 290 Lab / Micro Data Result Diagrams: 09/02/21 05:04 09/02/21 05:04 Labs: Laboratory Results - last 24 hr 09/02/21 05:04: WBC 5.4, RBC 3.44 L, Hgb 10.9 L, Hct 30.8 L, MCV 89.5, MCH 31.7, MCHC 35.4, RDW Std Deviation 44.2 H, RDW Coeff of Lucía 13.5, Plt Count 265, MPV 9.3, Immature Gran % (Auto) 1.100 H, Neut % (Auto) 60.4, Lymph % (Auto) 26.3, [place] % (Auto) 11.4 H, Eos % (Auto) 0.4, Baso % (Auto) 0.4, Absolute Neuts (auto) 3.3, Absolute Lymphs (auto) 1.41, Nucleated RBC % 0 09/02/21 05:04: Sodium 123 L, Potassium 3.8, Chloride 91 L, Carbon Dioxide 26.0, Anion Gap 6, BUN 15, Creatinine 0.81, Estim Creat Clear Calc 67.21, Est GFR (MDRD) Af Amer 88, Est GFR (MDRD) Non-Af 73, BUN/Creatinine Ratio 18.5, Glucose 102, Calcium 8.1 L, Total Bilirubin 0.30, AST 14 L, ALT 18, Alkaline Phosphatase 58, Total Protein 5.9 L, Albumin 2.7 L, Globulin 3.2, Albumin/Globulin Ratio 0.8 L Physical Exam Narrative Physical exam: General: Alert, Oriented x3, Cooperative, No apparent distress, appears very frail HEENT: Atraumatic Oral: Moist Mucosa Neck: Supple Lungs: Diminished to auscultation Cardiovascular: HS I+II, regular, no murmurs Abdomen: Bowel Sounds Present, Soft, Non Tender Extremities: No edema Assessment & Plan Assessment/Plan (1) Hypertensive urgency: (2) HLD (hyperlipidemia): QUALIFIERS: Hyperlipidemia type: unspecified Qualified Code(s): E78.5 - Hyperlipidemia, unspecified (3) Essential hypertension: (4) Hyponatremia: (5) Acute hyponatremia: (6) Confusion: PLAN: 1. Acute orthostatic hypotension secondary to medication side effect Patient is receiving IV fluids 2. Hypertensive urgency, resolved Blood pressure is relatively low Continue on hydralazine, losartan, Coreg and amlodipine 3. Hyponatremia, chronic, secondary to SIADH, on salt tablets Sodium is 124 today, continue to monitor 4. Metabolic encephalopathy, appears resolved 5. DVT prophylaxis - Heparin SC Charges/Coding Visit Charges Inpatient E&M: 56643 Subs Hosp L3
[2021-09-02] MEDS: hydrALAZINE 50 MG Tablet 100 MG PO (20:49)
[2021-09-02] MEDS: Citalopram 10 MG Tablet PO (20:50)
[2021-09-02] MEDS: Atorvastatin Calcium 10 MG Tablet PO (20:51)
[2021-09-03 02:40] VITALS: BP 159/74; PULSE 71; RESP 16; TEMP 36.9; O2SAT 94
[2021-09-03] MEDS: HYDROcodone Bitartrate/Apap 5/325 Tablet PO (05:17)
[2021-09-03] MEDS: AMOXICILLIN 500 MG CAPSULE PO ×2 (05:18→13:52)
[2021-09-03] MEDS: busPIRone 5 MG Tablet PO (05:19)
[2021-09-03] MEDS: Gabapentin 100 MG Capsule PO ×2 (05:19→13:52)
[2021-09-03 06:59] VITALS: PULSE 70
[2021-09-03 08:40] VITALS: BP 205/71; PULSE 70; RESP 16; TEMP 36.6; O2SAT 94
[2021-09-03] MEDS: Carvedilol 25 MG Tablet PO (08:59)
[2021-09-03] MEDS: Aspirin E.C. 81 MG Tablet PO (08:59)
[2021-09-03] MEDS: Pantoprazole Sodium 40 MG Tablet PO (08:59)
[2021-09-03] MEDS: Sodium Chloride 1 GM Tablet PO (08:59)
[2021-09-03] MEDS: Losartan Potassium 50 MG Tablet PO (08:59)
[2021-09-03 09:09] VITALS: BP 205/71; PULSE 70
[2021-09-03] MEDS: hydrALAZINE 50 MG Tablet 100 MG PO (09:09)
[2021-09-03 11:16] VITALS: BP 132/62; BP 146/60; BP 156/70; PULSE 63; PULSE 64; PULSE 68; PULSE 75; RESP 18; TEMP 36.2; O2SAT 96
--- NOTE | 2021-09-03 12:15 | CASEMGMT ---
Pt was planned to discharge yesterday but then had positive orthostatics and was kept for fluids. Pt will d/c today and still states no further need for therapy/resources at discharge. Mae KRISHNAMURTHY CM
--- NOTE | 2021-09-03 14:07 | PCM.DC ---
Discharge Instructions Diet Discharge Diet: Low fat / Low cholesterol and 2000 mg Sodium Diet Activity Discharge Activity: Return to Normal Activity Follow Up Care Test Results: Test results from this visit will be discussed in further detail at your follow-up appointment, if applicable. Discharge Plan Admission Admit Date/Time: 08/31/21 14:42 Primary Reason for Your Visit: Hypertensive urgency Attending Provider: Kiara Santa Primary Care Provider: Sarabjit Tam Chi Instructions Additional Instructions / Restrictions: Take note of changes to your medications. Measure your blood pressure every morning and keep a log of it. Follow-up with Dr. Tam on Monday09/06/21. Discharge Orders/Prescriptions Prescriptions: New sodium chloride 1,000 mg Tablet,Soluble 1 g PO BID Qty: 0 RF: 0 Continued losartan 50 mg tablet 50 mg PO BID RF: 0 atorvastatin 10 mg tablet 10 mg PO DAILY RF: 0 aspirin 81 mg tablet,delayed release (DR/EC) 81 mg PO DAILY RF: 0 omeprazole 40 MG capsule,delayed release(DR/EC) 40 mg PO DAILY RF: 0 hydrocodone-acetaminophen 1 TABLET tablet 1 tab PO Q6H PRN PRN (Reason: Pain) 3 Days Qty: 10 RF: 0 amoxicillin 500 mg capsule 500 mg PO TID RF: 0 buspirone 5 mg tablet 5 mg PO TID RF: 0 citalopram 10 mg tablet 10 mg PO QHS RF: 0 gabapentin 100 mg capsule 100 mg PO TID RF: 0 hydralazine 100 mg tablet 100 mg PO BID RF: 0 carvedilol 25 mg tablet 25 mg PO BID Qty: 180 RF: 3 Discontinued clonidine HCl 0.1 mg tablet 0.1 mg PO QHS PRN (Reason: hypertensive emergency) Qty: 30 RF: 3 hydralazine 50 mg tablet 50 mg PO DAILY@1400 RF: 0 ibuprofen 600 mg tablet 600 mg PO TID RF: 0 Referrals / Follow Up: Sarabjit Tam Chi, MD [Primary Care Provider] - See Referral Note (Dr. Tam will get patient in on 09/06/21) Disposition Disposition (needs filled in before D/C Order can be placed): Home Health Service
--- NOTE | 2021-09-03 14:15 | DS.PCM_ITS ---
Providers Date of Admission: 08/31/21 Date of Discharge: 09/03/21 Primary Care Physician: Dr. Sarabjit Tam MD Reason For Visit: HYPONATREMIA Diagnosis Discharge Diagnosis (1) Hypertensive urgency: Status: Acute Code(s): I16.0 - Hypertensive urgency (2) HLD (hyperlipidemia): Status: Chronic Code(s): E78.5 - Hyperlipidemia, unspecified Qualifiers: Hyperlipidemia type: unspecified Qualified Code(s): E78.5 - Hyperlipidemia, unspecified (3) Essential hypertension: Status: Chronic Code(s): I10 - Essential (primary) hypertension (4) Hyponatremia: Status: Acute Code(s): E87.1 - Hypo-osmolality and hyponatremia (5) Acute hyponatremia: Status: Acute Code(s): E87.1 - Hypo-osmolality and hyponatremia (6) Confusion: Status: Acute Code(s): R41.0 - Disorientation, unspecified Medications at Discharge Home Medications omeprazole 40 mg PO DAILY 03/17/20 aspirin 81 mg tablet,delayed release 81 mg PO DAILY 06/15/21 atorvastatin 10 mg tablet 10 mg PO DAILY 06/15/21 losartan 50 mg tablet 50 mg PO BID 06/15/21 hydrocodone-acetaminophen 1 tab PO Q6H PRN PRN 3 Days #10 tablet 08/22/21 carvedilol 25 mg tablet 25 mg PO BID #180 tab 08/25/21 amoxicillin 500 mg PO TID 08/31/21 buspirone 5 mg PO TID 08/31/21 citalopram 10 mg PO QHS 08/31/21 gabapentin 100 mg PO TID 08/31/21 hydralazine 100 mg PO BID 08/31/21 sodium chloride 1 g PO BID #0 tab 09/03/21 Hospital Course Operations None Procedures None Summary of Care Provided Minutes Spent on Discharge: 40 Hospital Course: 76-year-old female who presented with confusion. Patient has history of chronic hyponatremia secondary to SIADH, on chronic salt tablets. Patient underwent several tooth extractions and had some bleeding a day prior to admission. She was brought to the emergency room for evaluation for confusion. CT of the head was negative for acute process. Patient blood pressure was elevated at 200/78.\ Patient was admitted to the PCU and monitored on telemetry. She was monitored hypertensive urgency. Medications were restarted. During this hospital stay, patient was alert oriented x3. She however developed hypotension. It was suspected that patient was not taking all her medications and when her medicati ons were resumed, she developed hypotension. There was discrepancies with regards to her exact med list. Changes were made to her medications. She received IV fluids during this hospital stay for hypotension. Patient was discharged on hydralazine 100 mg p.o. twice daily, losartan 50 mg twice daily and carvedilol 25 mg p.o. twice daily. Patient was advised to keep a log of her blood pressures. This was discussed with Dr. Tam.She will be seen on Monday09/06/[address] Tam in the outpatient. Physical Exam Narrative Physical exam: General: Alert, Oriented x3, Cooperative, No apparent distress, appears very frail HEENT: Atraumatic Oral: Moist Mucosa Neck: Supple Lungs: Diminished to auscultation Cardiovascular: HS I+II, regular, no murmurs Abdomen: Bowel Sounds Present, Soft, Non Tender Extremities: No edema Weight / BMI Weight Weight: 73.2 kg Body Mass Index (BMI) 32.5 ABG / Lab / Microbiology Data Result Diagrams: 09/02/21 05:04 09/02/21 05:04 D/C Instructions Discharge Diet: Low fat / Low cholesterol and 2000 mg Sodium Diet Meaningful Use Info Meaningful Use Diagnoses (Choose all that apply): None applicable Discharge Plan Admission Admit Date/Time: 08/31/21 14:42 Primary Reason for Your Visit: Hypertensive urgency Attending Provider: Kiara Santa Primary Care Provider: Sarabjit Tam Chi Instructions Additional Instructions / Restrictions: Take note of changes to your medications. Measure your blood pressure every morning and keep a log of it. Follow-up with Dr. Tam on Monday09/06/21. Discharge Orders/Prescriptions Prescriptions: New sodium chloride 1,000 mg Tablet,Soluble 1 g PO BID Qty: 0 RF: 0 Continued losartan 50 mg tablet 50 mg PO BID RF: 0 atorvastatin 10 mg tablet 10 mg PO DAILY RF: 0 aspirin 81 mg tablet,delayed release (DR/EC) 81 mg PO DAILY RF: 0 omeprazole 40 MG capsule,delayed release(DR/EC) 40 mg PO DAILY RF: 0 hydrocodone-acetaminophen 1 TABLET tablet 1 tab PO Q6H PRN PRN (Reason: Pain) 3 Days Qty: 10 RF: 0 amoxicillin 500 mg capsule 500 mg PO TID RF: 0 buspirone 5 mg tablet 5 mg PO TID RF: 0 citalopram 10 mg tablet 10 mg PO QHS RF: 0 gabapentin 100 mg capsule 100 mg PO TID RF: 0 hydralazine 100 mg tablet 100 mg PO BID RF: 0 carvedilol 25 mg tablet 25 mg PO BID Qty: 180 RF: 3 Discontinued clonidine HCl 0.1 mg tablet 0.1 mg PO QHS PRN (Reason: hypertensive emergency) Qty: 30 RF: 3 hydralazine 50 mg tablet 50 mg PO DAILY@1400 RF: 0 ibuprofen 600 mg tablet 600 mg PO TID RF: 0 Referrals / Follow Up: Sarabjit Tam Chi, MD [Primary Care Provider] - See Referral Note (Dr. Tam will get patient in on 09/06/21) Disposition Disposition (needs filled in before D/C Order can be placed): Home Health Service Charges/Coding Visit Charges Inpatient E&M: 04123 Disch Hosp
== END 2021-09-03 11:18 | disposition home health service (06) ==
LOC: ED 14:33 → PCU 15:04
PROVIDERS: Emergency Provider Emergency Medicine; PCP Family Medicine Geriatric Medicine; Visit Provider Internal Medicine
DX: I16.0 Hypertensive urgency (principal); I73.9 Peripheral vascular disease, unspecified; E22.2 Syndrome of inappropriate secretion of antidiuretic hormone; N18.9 Chronic kidney disease, unspecified; I25.10 Atherosclerotic heart disease of native coronary artery without angina pectoris; I12.9 Hypertensive chronic kidney disease with stage 1 through stage 4 chronic kidney disease, or unspecified chronic kidney disease; E78.5 Hyperlipidemia, unspecified; G93.41 Metabolic encephalopathy; I49.1 Atrial premature depolarization; K21.9 Gastro-esophageal reflux disease without esophagitis; F41.9 Anxiety disorder, unspecified; F32.A Depression, unspecified; Z79.82 Long term (current) use of aspirin; Z79.899 Other long term (current) drug therapy
CPT/HCPCS: 36415; 70450; 80048; 80053; 81001; 84484; 85025; 93005; 96361; 96374; 97162; 97166; 97530; 97535; 99218; 99284; J7030; A4216; G0378; J2405

== ENCOUNTER 2021-09-07 11:46 | Outpatient (CLI) | payer MEDICARE, SELFPAY ==
[2021-06-28 09:37] VITALS: BMI 34.1
[2021-09-07 12:52] LABS: Anion Gap 7 (5-15); BUN 7 mg/dL (7-18); BUN/Creat Ratio 11.6 RATIO (10-20); Calcium,Total 8.6 mg/dL (8.5-10.1); Chloride 93 mmol/L (98-107); EST Glomerular Filtration Rate 103 mL/min (>60); Est Glom Filt Rate - Afr Amer 124 mL/min (>60); Glucose 108 mg/dL (74-106); Potassium 3.4 mmol/L (3.5-5.1); Sodium Level 127 mmol/L (136-145)
== END 2021-09-07 23:59 | disposition home or self-care (01) ==
LOC: POLAB3 11:47
PROVIDERS: PCP Family Medicine Geriatric Medicine; Visit Provider Family Medicine Geriatric Medicine
DX: I10 Essential (primary) hypertension (principal); N39.0 Urinary tract infection, site not specified
CPT/HCPCS: 36415; 80048; 87086; 87088; 87186

== ENCOUNTER 2021-09-13 10:03 | Outpatient (CLI) | payer MEDICARE, SELFPAY ==
[2021-06-28 09:37] VITALS: BMI 34.1
[2021-09-13 10:34] LABS: Absolute Lymphocyte Count 1.13 X10^3/uL (0.83-4.51); Absolute Neutrophil Count 4.7 X10^3/uL (2.0-7.7); Basophil# 0.05 X10^3/uL; Basophil% 0.7 % (0-1); Eosinophil# 0.09 X10^3/uL; Eosinophils% 1.3 % (0-5); Hematocrit 32.5 % (37-47); Hemoglobin 11.6 g/dL (12.0-15.0); Lymphocyte # 1.13 X10^3/ul (0.83-4.51); Lymphocyte % 16.9 % (19-41); Mean Corp Hgb Conc 35.7 g/dL (32-36); Mean Corpuscular Hgb 31.8 pg (27.0-32.0); Mean Platelet Vol. 9.3 fl (6.2-12.0); Monocyte# 0.68 X10^3/uL; Monocyte% 10.2 % (0-10); NRBC Flagged by Analyzer 0 % (0-5); Neutrophil # 4.68 X10^3/uL (2.7-7.7); Neutrophil % 70.3 % (47-70); Platelet Count 327 K/mm3 (150-450); RBC Distribution Width CV 13.4 % (11.6-14.6); RBC Distribution Width SD 43.9 fl (35.1-43.9); Red Blood Count 3.65 M/mm3 (4.2-5.4); White Blood Count 6.7 K/mm3 (4.4-11.0)
[2021-09-13 10:59] LABS: ALB/GLOB Ratio 1.1 RATIO (0.9-2.4); AST(SGOT) 22 U/L (15-37); Alanine Aminotransfer ALT/SGPT 20 U/L (13-56); Albumin, Serum 3.2 g/dL (3.2-5.0); Alkaline Phosphatase 58 U/L (45-117); Anion Gap 6 (5-15); BUN 11 mg/dL (7-18); BUN/Creat Ratio 18.1 RATIO (10-20); Calcium,Total 8.5 mg/dL (8.5-10.1); Chloride 90 mmol/L (98-107); Creatinine, Serum 0.61 mg/dL (0.55-1.02); EST Glomerular Filtration Rate 101 mL/min (>60); Est Glom Filt Rate - Afr Amer 123 mL/min (>60); Glucose 106 mg/dL (74-106); Potassium 3.1 mmol/L (3.5-5.1); Protein, Total 6.2 g/dL (6.4-8.2); Sodium Level 124 mmol/L (136-145); Thyroid Stim Hormone (TSH) 0.97 uIU/mL (0.358-3.74)
== END 2021-09-13 23:59 | disposition home or self-care (01) ==
LOC: POLAB3 10:05
PROVIDERS: PCP Family Medicine Geriatric Medicine; Visit Provider Family Medicine Geriatric Medicine
DX: I10 Essential (primary) hypertension (principal); G93.40 Encephalopathy, unspecified
CPT/HCPCS: 36415; 80053; 84443; 85025

== ENCOUNTER 2021-09-15 11:35 | Outpatient (CLI) | payer MEDICARE, SELFPAY ==
[2021-06-28 09:37] VITALS: BMI 34.1
[2021-09-15 12:30] LABS: Anion Gap 7 (5-15); BUN 7 mg/dL (7-18); BUN/Creat Ratio 9.5 RATIO (10-20); Calcium,Total 8.5 mg/dL (8.5-10.1); Chloride 94 mmol/L (98-107); Creatinine, Serum 0.74 mg/dL (0.55-1.02); EST Glomerular Filtration Rate 81 mL/min (>60); Est Glom Filt Rate - Afr Amer 98 mL/min (>60); Glucose 102 mg/dL (74-106); Potassium 3.3 mmol/L (3.5-5.1); Sodium Level 126 mmol/L (136-145)
== END 2021-09-15 23:59 | disposition home or self-care (01) ==
LOC: POLAB3 11:46
PROVIDERS: PCP Family Medicine Geriatric Medicine; Visit Provider Family Medicine Geriatric Medicine
DX: E87.6 Hypokalemia (principal)
CPT/HCPCS: 36415; 80048

== ENCOUNTER 2021-09-21 11:25 | Outpatient (CLI) | payer MEDICARE, SELFPAY ==
[2020-04-28 12:27] VITALS: BMI 34.1
[2021-06-28 09:37] VITALS: BMI 34.1
[2021-09-21 12:15] LABS: Anion Gap 5 (5-15); BUN 9 mg/dL (7-18); BUN/Creat Ratio 12.4 RATIO (10-20); Calcium,Total 8.4 mg/dL (8.5-10.1); Chloride 96 mmol/L (98-107); Creatinine, Serum 0.72 mg/dL (0.55-1.02); EST Glomerular Filtration Rate 83 mL/min (>60); Est Glom Filt Rate - Afr Amer 100 mL/min (>60); Glucose 121 mg/dL (74-106); Potassium 3.7 mmol/L (3.5-5.1); Sodium Level 130 mmol/L (136-145)
== END 2021-09-21 23:59 | disposition home or self-care (01) ==
LOC: PAVLAB 11:26
PROVIDERS: PCP Family Medicine Geriatric Medicine; Referring Provider Internal Medicine Nephrology; Visit Provider Internal Medicine Nephrology
DX: N18.2 Chronic kidney disease, stage 2 (mild) (principal); E87.6 Hypokalemia
CPT/HCPCS: 36415; 80048

== ENCOUNTER → 2021-12-02 | Outpatient (CLI) | payer MEDICARE, SELFPAY ==
[2021-06-28 09:37] VITALS: BMI 34.1
[2021-12-02 17:51] LABS: Absolute Lymphocyte Count 1.64 X10^3/uL (0.83-4.51); Absolute Neutrophil Count 2.7 X10^3/uL (2.0-7.7); Basophil# 0.02 X10^3/uL; Basophil% 0.4 % (0-1); Eosinophil# 0.08 X10^3/uL; Eosinophils% 1.6 % (0-5); Hematocrit 30.7 % (37-47); Hemoglobin 10.1 g/dL (12.0-15.0); Lymphocyte # 1.64 X10^3/ul (0.83-4.51); Lymphocyte % 33.5 % (19-41); Mean Corp Hgb Conc 32.9 g/dL (32-36); Mean Corpuscular Hgb 31.3 pg (27.0-32.0); Mean Platelet Vol. 10.3 fl (6.2-12.0); Monocyte# 0.44 X10^3/uL; NRBC Flagged by Analyzer 0 % (0-5); Neutrophil % 55.1 % (47-70); Platelet Count 309 K/mm3 (150-450); RBC Distribution Width CV 12.3 % (11.6-14.6); RBC Distribution Width SD 43.1 fl (35.1-43.9); Red Blood Count 3.23 M/mm3 (4.2-5.4); White Blood Count 4.9 K/mm3 (4.4-11.0)
[2021-12-02 18:07] LABS: Vitamin D,25 Hydroxy 32.1 ng/mL
[2021-12-02 18:18] LABS: AST(SGOT) 15 U/L (15-37); Alanine Aminotransfer ALT/SGPT 23 U/L (13-56); Albumin, Serum 3.2 g/dL (3.2-5.0); Alkaline Phosphatase 73 U/L (45-117); Anion Gap 6 (5-15); BUN 11 mg/dL (7-18); BUN/Creat Ratio 14.2 RATIO (10-20); Calcium,Total 8.6 mg/dL (8.5-10.1); Chloride 97 mmol/L (98-107); Creatinine, Serum 0.78 mg/dL (0.55-1.02); EST Glomerular Filtration Rate 76 mL/min (>60); Est Glom Filt Rate - Afr Amer 92 mL/min (>60); Globulin 3.2 g/dL (2.2-4.2); Glucose 102 mg/dL (74-106); Potassium 4.1 mmol/L (3.5-5.1); Protein, Total 6.4 g/dL (6.4-8.2); Sodium Level 128 mmol/L (136-145); Thyroid Stim Hormone (TSH) 1.49 uIU/mL (0.358-3.74)
== END | disposition home or self-care (01) ==
LOC: POLAB3 15:32
PROVIDERS: PCP Family Medicine Geriatric Medicine; Visit Provider Family Medicine Geriatric Medicine
DX: E55.9 Vitamin D deficiency, unspecified (principal); I10 Essential (primary) hypertension
CPT/HCPCS: 36415; 80053; 82306; 84443; 85025

== ENCOUNTER 2022-02-07 04:47 | Emergency (ER) | payer MEDICARE, SELFPAY ==
[2021-06-28 09:37] VITALS: BMI 34.1
[2022-02-07 04:48] VITALS: BP 255/119; PULSE 78; RESP 16; TEMP 36.3; O2SAT 98; BMI 31.6
--- NOTE | 2022-02-07 05:25 | EDS_ITS ---
HPI History of Present Illness Chief Complaint: Bite Narrative Narrative: Patient is a 76-year-old female with past medical history of hypertension hyperlipidemia lupus and renal artery stenosis. She states yesterday around 7 PM she was working out in her garden. She states she disturb an underground hornSnackr nest and was stung multiple times. She denies any trouble breathing or swallowing but states she has had difficulty sleeping because of pain secondary to the stings and therefore comes in for evaluation [facility] Medical History Anxiety and depression Atherosclerotic heart disease of [place] coronary artery without angina pectoris Chest pain CKD (chronic kidney disease) CVA (cerebral vascular accident) Difficulty balancing when standing Essential hypertension Fatigue Heart disease History of gastroesophageal reflux (GERD) HLD (hyperlipidemia) Hypertensive urgency Hyponatremia Hyponatremia Kidney disease Knee pain Near syncope Non-rheumatic mitral regurgitation PAD (peripheral artery disease) Pessary maintenance Presence of stent in coronary artery (~04/16/20) Skin cancer SOB (shortness of breath) Syncope and collapse Syncope due to orthostatic hypotension Vaginal wall prolapse Home Medications omeprazole 40 mg capsule,delayed release 40 mg PO DAILY GERD 03/17/20 [History Last Taken 08/30/21] aspirin 81 mg tablet,delayed release 81 mg PO DAILY 06/15/21 [History Last Taken 08/30/21] atorvastatin 10 mg tablet 10 mg PO DAILY 06/15/21 [History Last Taken 08/31/21] losartan 50 mg tablet 50 mg PO BID 06/15/21 [History Last Taken 08/31/21] carvedilol 25 mg tablet 25 mg PO BID #180 tabs 08/25/21 [Rx Last Taken 08/31/21] buspirone 5 mg tablet 5 mg PO TID ANXIETY 08/31/21 [History Last Taken 08/30/21] estradiol 0.01% (0.1 mg/gram) vaginal cream (Estrace) See Rx Instructions vaginal .COMPLEX #42.5 grams 10/19/21 [Rx Last Taken Unknown] hydralazine 100 mg tablet 100 mg PO BID 10/19/21 [History Last Taken Unknown] sodium chloride 1,000 mg soluble tablet 1,000 mg PO TID 10/19/21 [History Last Taken Unknown] desonide 0.05 % topical cream 1 applic topical TID PRN skin irritation #60 grams 02/07/22 [Rx Last Taken Unknown] oxycodone-acetaminophen 5 mg-325 mg tablet (Endocet) 1 tab PO Q6H PRN pain 3 days #12 tabs 02/07/22 [Rx Last Taken Unknown] potassium chloride 20 mEq tablet,extended release 20 meq PO DAILY 02/07/22 [History Last Taken Unknown] prednisone 20 mg tablet 20 mg PO DAILY 5 days #5 tabs 02/07/22 [Rx Last Taken Unknown] Allergy/AdvReac Type Severity Reaction Status Date / Time amlodipine AdvReac Intermediate swelling Verified 02/07/22 04:52 Xinyuyp-TPE-FlC Reductase AdvReac leg muscle Verified 02/07/22 04:52 Inhibitor weakness [Eoaxqce-Ywe-Hxh Reductase Inhibitor] Family History Mother CAD (coronary artery disease) CVA (cerebral vascular accident) Brother CVA (cerebral vascular accident) Heart disease Kidney disease Diabetes Sister CAD (coronary artery disease) Sister Diabetes Brother Diabetes Brother CAD (coronary artery disease) Other Cancer Hypertension Surgical History H/O oral surgery History of bilateral cataract extraction History of renal stent Presence of coronary angioplasty implant and graft (~03/18/20) Social History household members: family Smoking Status: Never smoker alcohol intake: never substance use type: does not use caffeine: No what type of physical activity do you participate in: none seatbelt use: always do you feel safe at home: Yes additional social history: - Retired 1 adopted daughter-, drug use ROS ROS ED Constitutional Constitutional ED: Denies chills or fever(s) ENT ENT ED: Denies sore throat Cardiovascular Cardiovascular: Denies chest pain Respiratory/Chest Respiratory/Chest: Denies cough or dyspnea Gastrointestinal Gastrointestinal: Denies abdominal pain, diarrhea, nausea or vomiting Genitourinary Genitourinary ED: Denies dysuria Musculoskeletal Musculoskeletal: Reports myalgias Integumentary Reports rash Neurologic Neurologic: Denies headache(s) or paresthesias Hematologic/Lymphatic Hematologic/Lymphatic: Denies easy bleeding or easy bruising EXAM Physical Exam Const Vital Signs: 02/07/22 04:48 Temperature 97.4 F L Temperature Source Temporal Pulse Rate 78 Respiratory Rate 16 Blood Pressure 255/119 H Blood Pressure Mean 164 Pulse Ox 98 Oxygen Delivery Method Room Air Positive well nourished and well developed General Appearance ED: well developed HEENT Reports moist mucous membranes HEENT Narrative: No tongue or lip swelling no oral lesions no airway edema or compromise Eyes PERRL and EOMs intact bilaterally Neck supple Resp normal respiratory effort and clear to auscultation bilaterally Cardio regular rate and regular rhythm Rate: other Other Details: Radial pulses are plus 2 out of 4 bilaterally are equal and symmetric Extremity Extremity Narrative: Patient has areas of erythema and swelling to the bilateral hands right forearm and upper arm as well as right ankle consistent with insect bite/sting. No retained stinger is noted. No secondary changes to suggest infection. No bony deformity or joint effusion present Neuro oriented x3 and CN's II-XII intact bilaterally Sensorium / Orientation: alert Psych mental status grossly normal Skin Skin Narrative: Soft tissue changes to the right leg and bilateral hands and arms as documented above MDM MDM MDM Narrative Medical decision making narrative: Patient presented to the ER hypertensive but has a history of this along with renal artery stenosis and based on her pain this is not abnormal for her. She did not have any retained stingers to suggest continued allergic reaction and she has no signs of secondary infection. Therefore at this time I do not feel there is need for imaging or laboratory studies. Patient was given a shot of Kenalog to help reduce inflammation and oxycodone for pain. At this time as there is no signs of secondary infection or respiratory distress I do not feel need to keep the patient in the hospital any longer and she is otherwise safe for discharge with symptomatic care. Discharge Plan Triage Chief Complaint: Bite ED Provider: Luis Sun Dx/Rx/DC Orders Clinical Impression: Allergic to insect bites and stings, Essential hypertension Instructions: ED BEE STING General Allergic Rxn Prescriptions: New prednisone 20 mg tablet 20 mg PO DAILY 5 Days Qty: 5 0RF oxycodone-acetaminophen [Endocet] 5-325 mg tablet 1 tab PO Q6H PRN (Reason: pain) 3 Days Qty: 12 0RF desonide 0.05 % cream 1 applic topical TID PRN (Reason: skin irritation) Qty: 60 0RF No Action losartan 50 mg tablet 50 mg PO BID atorvastatin 10 mg tablet 10 mg PO DAILY aspirin 81 mg tablet,delayed release (DR/EC) 81 mg PO DAILY sodium chloride 1,000 mg tablet,soluble 1,000 mg PO TID estradiol [Estrace] 0.01 % (0.1 mg/gram) cream See Rx Instructions VAGINAL .COMPLEX Qty: 42.5 2RF Rx Instructions: pea sized amount VAGINAL twice a week; omeprazole 40 MG capsule,delayed release(DR/EC) 40 mg PO DAILY buspirone 5 mg tablet 5 mg PO TID Label Comments: Take 1 Tablet orally 3 times per day for 30 days hydralazine 100 mg tablet 100 mg PO BID Rx Instructions: 50 q am, 100 q hs potassium chloride 20 mEq Tablet Extended Release 20 meq PO DAILY carvedilol 25 mg tablet 25 mg PO BID Qty: 180 3RF Primary Care Provider: Sarabjit Tam Chi Referrals: Sarabjit Tam Chi, MD [Primary Care Provider] - Activity Restrictions/Additional Instructions: Please take the steroid pill as directed to reduce inflammation and use the topical steroid cream if there is need for extra itch/inflammation control. Please return to the ER should you have any further concerns Disposition Disposition: Home, Self Care
[2022-02-07] MEDS: Triamcinolone Acetonide 40 MG/ML Vial IM (05:26)
[2022-02-07] MEDS: oxyCODONE 5 MG Tablet 10 MG PO (05:26)
[2022-02-07 05:43] VITALS: PULSE 78; RESP 16; O2SAT 98
== END 2022-02-07 05:44 | disposition home or self-care (01) ==
PROVIDERS: Emergency Provider Emergency Medicine; PCP Family Medicine Geriatric Medicine; Visit Provider Emergency Medicine
DX: T63.441A Toxic effect of venom of bees, accidental (unintentional), initial encounter (principal); I25.10 Atherosclerotic heart disease of native coronary artery without angina pectoris; N18.9 Chronic kidney disease, unspecified; E78.5 Hyperlipidemia, unspecified; I12.9 Hypertensive chronic kidney disease with stage 1 through stage 4 chronic kidney disease, or unspecified chronic kidney disease; F41.9 Anxiety disorder, unspecified; Z79.82 Long term (current) use of aspirin; Z79.899 Other long term (current) drug therapy; Z86.73 Personal history of transient ischemic attack (TIA), and cerebral infarction without residual deficits
CPT/HCPCS: 96372; 99282

== ENCOUNTER → 2022-02-14 | Outpatient (CLI) | payer MEDICARE, SELFPAY ==
[2021-06-28 09:37] VITALS: BMI 34.1
[2022-02-14 13:52] LABS: Anion Gap 7 (5-15); BUN 22 mg/dL (7-18); BUN/Creat Ratio 33.6 RATIO (10-20); Calcium,Total 8.2 mg/dL (8.5-10.1); Chloride 97 mmol/L (98-107); Creatinine, Serum 0.66 mg/dL (0.55-1.02); EST Glomerular Filtration Rate 93 mL/min (>60); Est Glom Filt Rate - Afr Amer 112 mL/min (>60); Glucose 95 mg/dL (74-106); Potassium 4.2 mmol/L (3.5-5.1); Sodium Level 127 mmol/L (136-145)
== END | disposition home or self-care (01) ==
LOC: LAB 12:26
PROVIDERS: PCP Family Medicine Geriatric Medicine; Visit Provider Family Medicine Geriatric Medicine
DX: E87.1 Hypo-osmolality and hyponatremia (principal)
CPT/HCPCS: 36415; 80048

== ENCOUNTER → 2022-03-03 | Outpatient (CLI) | payer MEDICARE, SELFPAY ==
[2021-06-28 09:37] VITALS: BMI 34.1
[2022-03-03 15:44] LABS: Absolute Lymphocyte Count 1.53 X10^3/uL (0.83-4.51); Absolute Neutrophil Count 3.6 X10^3/uL (2.0-7.7); Basophil# 0.01 X10^3/uL; Basophil% 0.2 % (0-1); Eosinophil# 0.05 X10^3/uL; Eosinophils% 0.9 % (0-5); Hematocrit 29.9 % (37-47); Hemoglobin 10.2 g/dL (12.0-15.0); Lymphocyte # 1.53 X10^3/ul (0.83-4.51); Lymphocyte % 26.4 % (19-41); Mean Corp Hgb Conc 34.1 g/dL (32-36); Mean Corpuscular Hgb 30.9 pg (27.0-32.0); Mean Corpuscular Volume 90.6 fL (81-99); Mean Platelet Vol. 9.5 fl (6.2-12.0); Monocyte# 0.54 X10^3/uL; Monocyte% 9.3 % (0-10); NRBC Flagged by Analyzer 0 % (0-5); Neutrophil # 3.64 X10^3/uL (2.7-7.7); Neutrophil % 62.7 % (47-70); Platelet Count 262 K/mm3 (150-450); RBC Distribution Width CV 13.2 % (11.6-14.6); RBC Distribution Width SD 43.9 fl (35.1-43.9); White Blood Count 5.8 K/mm3 (4.4-11.0)
[2022-03-03 15:56] LABS: Vitamin D,25 Hydroxy 31.6 ng/mL
[2022-03-03 16:07] LABS: ALB/GLOB Ratio 0.9 RATIO (0.9-2.4); AST(SGOT) 12 U/L (15-37); Alanine Aminotransfer ALT/SGPT 21 U/L (13-56); Albumin, Serum 2.9 g/dL (3.2-5.0); Alkaline Phosphatase 70 U/L (45-117); Anion Gap 7 (5-15); BUN 15 mg/dL (7-18); Calcium,Total 8.4 mg/dL (8.5-10.1); Chloride 93 mmol/L (98-107); Creatinine, Serum 0.68 mg/dL (0.55-1.02); EST Glomerular Filtration Rate 89 mL/min (>60); Est Glom Filt Rate - Afr Amer 107 mL/min (>60); Globulin 3.1 g/dL (2.2-4.2); Glucose 89 mg/dL (74-106); Potassium 4.5 mmol/L (3.5-5.1); Sodium Level 124 mmol/L (136-145); Thyroid Stim Hormone (TSH) 1.23 uIU/mL (0.358-3.74)
== END | disposition home or self-care (01) ==
LOC: POLAB3 09:15
PROVIDERS: PCP Family Medicine Geriatric Medicine; Visit Provider Family Medicine Geriatric Medicine
DX: E55.9 Vitamin D deficiency, unspecified (principal); I10 Essential (primary) hypertension
CPT/HCPCS: 36415; 80053; 82306; 84443; 85025

== ENCOUNTER → 2022-03-12 | Outpatient (CLI) | payer MEDICARE, SELFPAY ==
[2021-06-28 09:37] VITALS: BMI 34.1
[2022-03-12 14:20] LABS: Mucous, Urine 0 SEEN /hpf (<or=2+); Squamous Epithelial Cells - UA 0 SEEN /hpf (5-10)
[2022-03-12 14:36] LABS: Color, Urine Yellow (Yellow); Glucose, Dipstick Normal (Normal); Ketone-Dipstick Negative (Negative); Leukocyte Esterase-Dipstick 500 /ul (Negative); Nitrite-Dipstick Negative (Negative); Occult Blood-Urine 25 /ul (Negative); Protein-Dipstick 30 mg/dl (Negative); Specific Gravity, Urine 1.015 (1.002-1.030); Urine Bilirubin Dipstick Negative (Negative); Urine Clarity Cloudy (Clear); Urine Urobilinogen 1 mg/dl (Normal); Urine pH 6.5 (5.0 - 8.0)
[2022-03-12 14:51] LABS: Red Blood Cells-Urine 5-10 SEEN /hpf (0-5); White Blood Cells >100 SEEN /hpf (0-5)
[2022-03-12 14:52] LABS: Bacteria 2+ /hpf (None Seen)
== END | disposition home or self-care (01) ==
PROVIDERS: PCP Family Medicine Geriatric Medicine; Visit Provider Nurse Practitioner Family
DX: N39.0 Urinary tract infection, site not specified (principal); R30.9 Painful micturition, unspecified
CPT/HCPCS: 81001; 87077; 87086; 87088; 87186

== ENCOUNTER → 2022-03-15 | Outpatient (CLI) | payer MEDICARE, SELFPAY ==
[2021-06-28 09:37] VITALS: BMI 34.1
[2022-03-15 12:18] LABS: Anion Gap 9 (5-15); BUN 10 mg/dL (7-18); Chloride 95 mmol/L (98-107); Creatinine, Serum 0.72 mg/dL (0.55-1.02); EST Glomerular Filtration Rate 84 mL/min (>60); Est Glom Filt Rate - Afr Amer 102 mL/min (>60); Glucose 97 mg/dL (74-106); Sodium Level 129 mmol/L (136-145)
== END | disposition home or self-care (01) ==
LOC: PAVLAB 11:54
PROVIDERS: PCP Family Medicine Geriatric Medicine; Referring Provider Family Medicine Geriatric Medicine; Visit Provider Family Medicine Geriatric Medicine
DX: E87.6 Hypokalemia (principal)
CPT/HCPCS: 36415; 80048

== ENCOUNTER → 2022-03-29 | Outpatient (CLI) | payer MEDICARE, SELFPAY ==
[2021-06-28 09:37] VITALS: BMI 34.1
== END | disposition home or self-care (01) ==
PROVIDERS: PCP Internal Medicine; Referring Provider Internal Medicine; Visit Provider Internal Medicine
DX: R55 Syncope and collapse (principal)
CPT/HCPCS: 93225; 93226

== ENCOUNTER → 2022-04-01 | Outpatient (CLI) | payer MEDICARE, SELFPAY ==
[2021-06-28 09:37] VITALS: BMI 34.1
[2022-04-01 12:14] LABS: Anion Gap 8 (5-15); BUN 10 mg/dL (7-18); BUN/Creat Ratio 14.1 RATIO (10-20); Calcium,Total 9.1 mg/dL (8.5-10.1); Chloride 98 mmol/L (98-107); Creatinine, Serum 0.71 mg/dL (0.55-1.02); EST Glomerular Filtration Rate 85 mL/min (>60); Est Glom Filt Rate - Afr Amer 103 mL/min (>60); Glucose 121 mg/dL (74-106); Potassium 3.5 mmol/L (3.5-5.1); Sodium Level 133 mmol/L (136-145)
== END | disposition home or self-care (01) ==
LOC: BIMLAB 10:00
PROVIDERS: PCP Internal Medicine; Referring Provider Internal Medicine; Visit Provider Internal Medicine
DX: E87.1 Hypo-osmolality and hyponatremia (principal)
CPT/HCPCS: 36415; 80048

== ENCOUNTER → 2022-04-19 | Outpatient (CLI) | payer MEDICARE, SELFPAY ==
[2021-06-28 09:37] VITALS: BMI 34.1
== END | disposition home or self-care (01) ==
LOC: LABSPEC 10:26
PROVIDERS: PCP Internal Medicine; Referring Provider Internal Medicine; Visit Provider Internal Medicine
DX: N39.0 Urinary tract infection, site not specified (principal)
CPT/HCPCS: 87077; 87086; 87088; 87186

== ENCOUNTER → 2022-05-09 | Outpatient (CLI) | payer MEDICARE, SELFPAY ==
[2021-06-28 09:37] VITALS: BMI 34.1
[2022-05-09 12:33] LABS: Anion Gap 6 (5-15); BUN 12 mg/dL (7-18); BUN/Creat Ratio 16.2 RATIO (10-20); Calcium,Total 8.7 mg/dL (8.5-10.1); Chloride 99 mmol/L (98-107); Creatinine, Serum 0.74 mg/dL (0.55-1.02); EST Glomerular Filtration Rate 81 mL/min (>60); Est Glom Filt Rate - Afr Amer 98 mL/min (>60); Glucose 98 mg/dL (74-106); Potassium 3.3 mmol/L (3.5-5.1); Sodium Level 132 mmol/L (136-145)
== END | disposition home or self-care (01) ==
LOC: BIMLAB 11:01
PROVIDERS: PCP Internal Medicine; Referring Provider Internal Medicine Nephrology; Visit Provider Internal Medicine Nephrology
DX: N18.2 Chronic kidney disease, stage 2 (mild) (principal)
CPT/HCPCS: 36415; 80048

== ENCOUNTER → 2022-05-17 | Outpatient (CLI) | payer MEDICARE, SELFPAY ==
[2021-06-28 09:37] VITALS: BMI 34.1
[2022-05-17 12:13] LABS: Anion Gap 6 (5-15); BUN 12 mg/dL (7-18); BUN/Creat Ratio 17.5 RATIO (10-20); Calcium,Total 8.9 mg/dL (8.5-10.1); Chloride 97 mmol/L (98-107); Creatinine, Serum 0.68 mg/dL (0.55-1.02); EST Glomerular Filtration Rate 88 mL/min (>60); Est Glom Filt Rate - Afr Amer 107 mL/min (>60); Glucose 74 mg/dL (74-106); Potassium 3.6 mmol/L (3.5-5.1); Sodium Level 132 mmol/L (136-145)
== END | disposition home or self-care (01) ==
LOC: BIMLAB 09:57
PROVIDERS: PCP Internal Medicine; Referring Provider Internal Medicine; Visit Provider Internal Medicine
DX: E87.1 Hypo-osmolality and hyponatremia (principal)
CPT/HCPCS: 36415; 80048

== ENCOUNTER → 2022-07-12 | Outpatient (CLI) | payer MEDICARE, SELFPAY ==
[2021-06-28 09:37] VITALS: BMI 34.1
[2022-07-12 12:52] LABS: Erythrocyte Sedimentation Rate 11 mm/hr (0-30)
[2022-07-12 12:58] LABS: Absolute Lymphocyte Count 1.19 X10^3/uL (0.83-4.51); Absolute Neutrophil Count 3.6 X10^3/uL (2.0-7.7); Basophil# 0.02 X10^3/uL; Basophil% 0.4 % (0-1); Eosinophil# 0.09 X10^3/uL; Eosinophils% 1.6 % (0-5); Hematocrit 31.4 % (37-47); Hemoglobin 10.3 g/dL (12.0-15.0); Lymphocyte # 1.19 X10^3/ul (0.83-4.51); Mean Corp Hgb Conc 32.8 g/dL (32-36); Mean Corpuscular Hgb 30.6 pg (27.0-32.0); Mean Corpuscular Volume 93.2 fL (81-99); Mean Platelet Vol. 10.1 fl (6.2-12.0); Monocyte# 0.72 X10^3/uL; Monocyte% 12.7 % (0-10); NRBC Flagged by Analyzer 0 % (0-5); Neutrophil # 3.64 X10^3/uL (2.7-7.7); Neutrophil % 63.9 % (47-70); Platelet Count 331 K/mm3 (150-450); RBC Distribution Width CV 12.3 % (11.6-14.6); RBC Distribution Width SD 42.5 fl (35.1-43.9); Red Blood Count 3.37 M/mm3 (4.2-5.4); White Blood Count 5.7 K/mm3 (4.4-11.0)
[2022-07-12 13:29] LABS: AST(SGOT) 17 U/L (15-37); Alanine Aminotransfer ALT/SGPT 21 U/L (13-56); Albumin, Serum 3.4 g/dL (3.2-5.0); Alkaline Phosphatase 76 U/L (45-117); Anion Gap 5 (5-15); BUN 10 mg/dL (7-18); BUN/Creat Ratio 15.1 RATIO (10-20); CPK Total, Creatine Kinase 39 U/L (26-192); CRP 4.94 mg/L (0.0-3.0); Calcium,Total 8.9 mg/dL (8.5-10.1); Chloride 96 mmol/L (98-107); Cholesterol 152 mg/dL (200); Creatinine, Serum 0.66 mg/dL (0.55-1.02); EST Glomerular Filtration Rate 92 mL/min (>60); Est Glom Filt Rate - Afr Amer 111 mL/min (>60); Globulin 3.4 g/dL (2.2-4.2); Glucose 94 mg/dL (74-106); High Density Lipoprotein 57 mg/dL; Magnesium 2.3 mg/dL (1.6-2.6); Protein, Total 6.8 g/dL (6.4-8.2); Rheumatoid Factor < 10.0 IU/mL (<15); Sodium Level 129 mmol/L (136-145); Triglycerides 60 mg/dL; Very Low Density Lipoprotein 12 mg/dL (5-40)
[2022-07-13 15:59] LABS: CCP IgG Antibodies 0 units (0-19)
== END | disposition home or self-care (01) ==
LOC: BIMLAB 09:27
PROVIDERS: PCP Internal Medicine; Referring Provider Internal Medicine; Visit Provider Internal Medicine
DX: I25.10 Atherosclerotic heart disease of native coronary artery without angina pectoris (principal); E55.9 Vitamin D deficiency, unspecified
CPT/HCPCS: 36415; 80053; 80061; 82306; 82550; 83735; 85025; 85652; 86140; 86200; 86431

== ENCOUNTER → 2022-08-12 | Outpatient (CLI) | payer MEDICARE, SELFPAY ==
[2021-06-28 09:37] VITALS: BMI 34.1
[2022-08-12 13:38] LABS: Anion Gap 7 (5-15); BUN 9 mg/dL (7-18); BUN/Creat Ratio 13.4 RATIO (10-20); Calcium,Total 8.5 mg/dL (8.5-10.1); Chloride 94 mmol/L (98-107); Creatinine, Serum 0.67 mg/dL (0.55-1.02); EST Glomerular Filtration Rate 90 mL/min (>60); Est Glom Filt Rate - Afr Amer 109 mL/min (>60); Glucose 89 mg/dL (74-106); Potassium 4.2 mmol/L (3.5-5.1); Sodium Level 127 mmol/L (136-145)
== END | disposition home or self-care (01) ==
LOC: BIMLAB 11:21
PROVIDERS: PCP Internal Medicine; Referring Provider Internal Medicine Nephrology; Visit Provider Internal Medicine Nephrology
DX: N18.2 Chronic kidney disease, stage 2 (mild) (principal)
CPT/HCPCS: 36415; 80048

== ENCOUNTER 2022-08-16 00:26 | Inpatient (IN) | payer MEDICARE, SELFPAY ==
[2021-06-28 09:37] VITALS: BMI 34.1
[2022-08-16] VITALS (18 sets, daily range): BP systolic 144–261; BP diastolic 48–104; PULSE 56–74; RESP 14–18; TEMP 36.4–36.7; O2SAT 94–99; BMI 31.1; BMI 29.9
--- NOTE | 2022-08-16 00:50 | CT_ITS ---
INDICATION: headache EXAMINATION: CT BRAIN - CT Head or Brain W/O Contrast Injection TECHNIQUE: Multiple axial images were obtained of the head without intravenous contrast. A radiation dose optimization technique was used for this scan. IV Contrast dosage and agent: None. COMPARISON: FINDINGS: BRAIN PARENCHYMA: No intra- or extra-axial hemorrhage. No evidence of acute infarct. No intracranial mass or mass effect. There is preservation of the mcgrath/white matter interface. Posterior fossa structures are unremarkable. CSF SPACES: Appropriate for age. No hydrocephalus. Basal cisterns are patent. CALVARIUM, SKULL BASE, PARANASAL SINUSES AND MASTOID AIR CELLS: Clear. No discrete lytic or blastic abnormalities. ORBITS: Both globes, extraocular muscles, optic nerves and retrobulbar fat appear unremarkable. ASPECTS Score for Acute Strokes: 10 CT/Brain/Head without Contrast IMPRESSION: Negative Brain CT without contrast. Electronically Signed: Melvina Rebolledo MD at 2:15 EST ,
--- NOTE | 2022-08-16 00:51 | EKG12_ITS ---
Test Reason : HTN Blood Pressure : / mmHG Vent. Rate : 065 BPM Atrial Rate : 065 BPM P-R Int : 196 ms QRS Dur : 080 ms QT Int : 420 ms P-R-T Axes : 052 -22 079 degrees QTc Int : 436 ms Normal sinus rhythm Left ventricular hypertrophy ( R in aVL ) Nonspecific ST and T wave abnormality Abnormal ECG Confirmed by ORION SILVER, YODIT ([id number]), videotape editor JESSICA ANGUIANO ([id number]) on 08/16/2022 10:24:16 AM Referred By: Confirmed By:YODIT SEARS MD
--- NOTE | 2022-08-16 00:57 | EDS_ITS ---
HPI History of Present Illness Chief Complaint: Hypertension Informant: patient Narrative Narrative: Patient is a 77-year-old female with history of GERD, peripheral arterial disease, CKD, hypertension, coronary artery disease, renal artery stenosis presenting with generalized malaise, headache and elevated blood pressure. Patient states she just was not feeling well tonight so she took her blood pressure this evening and it was 205 systolic. She took her blood pressure medications and her blood pressure went down to the 180s but then after taking her clonidine it still went back up to the 190. She states that for the past week her blood pressure has been running higher especially in the middle of the night despite taking the clonidine. She describes a general just feeling horrible this evening which is what triggered her to take her blood pressure. She notes that tonight she is also had a urinary frequency has been urinating every 30 minutes or so. Denies taking any diuretics. She has headache that is in her bilateral temples and goes to the top of her head. She denies any vision change, numbness, speech changes or weakness. 1 week ago she had an episode of left arm pain that went to her back that she treated with topical cream and ma ssage and that has since resolved. She does not currently have any chest pain, shortness of breath difficulty breathing. She is some chronic leg edema that is unchanged. She notes that she did have blood work on Monday (4 days ago) and was told her sodium was low at 127. [facility] Medical History Anxiety and depression Atherosclerotic heart disease of [place] coronary artery without angina pectoris Chest pain CKD (chronic kidney disease) COVID-19 CVA (cerebral vascular accident) Difficulty balancing when standing Essential hypertension Fatigue Heart disease History of gastroesophageal reflux (GERD) HLD (hyperlipidemia) Hypertensive urgency Hyponatremia Kidney disease Knee pain Near syncope Non-rheumatic mitral regurgitation PAD (peripheral artery disease) Pessary maintenance Presence of stent in coronary artery (~04/16/20) Skin cancer SOB (shortness of breath) Syncope and collapse Syncope due to orthostatic hypotension Vaginal wall prolapse Home Medications aspirin 81 mg tablet,delayed release 81 mg PO DAILY 06/15/21 [History Last Taken 08/30/21] losartan 50 mg tablet 50 mg PO BID 06/15/21 [History Last Taken 08/31/21] carvedilol 25 mg tablet 25 mg PO BID #180 tabs 08/25/21 [Rx Last Taken 08/31/21] buspirone 5 mg tablet 5 mg PO TID ANXIETY 08/31/21 [History Last Taken 08/30/21] estradiol 0.01% (0.1 mg/gram) vaginal cream (Estrace) See Rx Instructions vaginal .COMPLEX #42.5 grams 10/19/21 [Rx Last Taken Unknown] hydralazine 100 mg tablet 100 mg PO QHS 03/21/22 [History Last Taken Unknown] hydralazine 50 mg tablet 50 mg PO DAILY 03/21/22 [History Last Taken Unknown] clonidine HCl 0.2 mg tablet 0.2 mg PO QHS PRN hypertensive emergency #30 tabs 04/18/22 [Rx Last Taken Unknown] levocetirizine 5 mg tablet 5 mg PO DAILY #90 tabs 05/24/22 [Rx Last Taken Unknown] alprazolam 0.5 mg tablet (Xanax) 0.25 mg PO QHS PRN anxiety #15 tabs 07/12/22 [Rx Last Taken Unknown] potassium chloride 20 mEq tablet,extended release 20 meq PO DAILY #90 tabs 07/12/22 [Rx Last Taken Unknown] sodium chloride 1,000 mg soluble tablet 1,000 mg PO BID 07/12/22 [History Last Taken Unknown] Allergy/AdvReac Type Severity Reaction Status Date / Time amlodipine AdvReac Intermediate swelling Verified 08/16/22 00:30 Kvkztgd-MCU-AeX Reductase AdvReac leg muscle Verified 08/16/22 00:30 Inhibitor weakness [Ugyczck-Kkl-Acu Reductase Inhibitor] Family History Mother CAD (coronary artery disease) CVA (cerebral vascular accident) Brother CVA (cerebral vascular accident) Heart disease Kidney disease Diabetes Sister CAD (coronary artery disease) Sister Diabetes Brother Diabetes Brother CAD (coronary artery disease) Other Cancer Hypertension Surgical History H/O oral surgery History of bilateral cataract extraction History of renal stent Presence of coronary angioplasty implant and graft (~03/18/20) Social History household members: family 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 Smoking Status: Never smoker Electronic Cigarette Use: not used alcohol intake: never substance use type: does not use caffeine: No what type of physical activity do you participate in: none seatbelt use: always do you feel safe at home: Yes additional social history: - Retired 1 adopted daughter-, drug use ROS ROS ED Constitutional Constitutional ED: Denies chills or fever(s) Eyes Eyes: Denies blurry vision or change in vision ENT ENT ED: Denies rhinorrhea or sore throat Cardiovascular Cardiovascular: Denies chest pain or palpitations Respiratory/Chest Respiratory/Chest: Denies cough or dyspnea Gastrointestinal Gastrointestinal: Denies abdominal pain, nausea or vomiting Genitourinary Genitourinary ED: Reports urinary frequency; Denies dysuria Musculoskeletal Musculoskeletal: Denies arthralgias or myalgias Integumentary Denies rash Neurologic Neurologic: Reports headache(s); Denies paresthesias or weakness Psychiatric Psychiatric: Denies anxiety Hematologic/Lymphatic Hematologic/Lymphatic: Denies easy bleeding or easy bruising EXAM Physical Exam Const Vital Signs: 08/16/22 00:27 08/16/22 00:27 08/16/22 00:55 Temperature 97.8 F Temperature Source Temporal Pulse Rate 74 Respiratory Rate 16 Respiratory Effort Normal Non-Labored Respiratory Pattern Normal Blood Pressure 261/104 H 237/92 H Blood Pressure Mean 156 140 Pulse Ox 99 Oxygen Delivery Method Room Air 08/16/22 01:14 08/16/22 01:33 08/16/22 02:13 Temperature Temperature Source Pulse Rate 63 66 69 Respiratory Rate 18 15 Respiratory Effort Respiratory Pattern Blood Pressure 195/91 H 200/73 H 219/78 H Blood Pressure Mean 125 115 125 Pulse Ox 96 95 96 Oxygen Delivery Method Room Air Room Air Room Air 08/16/22 03:52 Temperature Temperature Source Pulse Rate 65 Respiratory Rate 18 Respiratory Effort Respiratory Pattern Blood Pressure 200/82 H Blood Pressure Mean 121 Pulse Ox 95 Oxygen Delivery Method Room Air Positive well nourished and well developed General Appearance ED: well developed HEENT Reports moist mucous membranes Negative for trauma Eyes PERRL and EOMs intact bilaterally Neck supple and no JVD Neck Narrative: Asymmetric swelling of the neck (left larger than right), patient states this is chronic for her and secondary to a goiter Chest Wall inspection of chest normal and palpation of chest normal Resp normal respiratory effort and clear to auscultation bilaterally Cardio regular rate, regular rhythm and no murmurs GI normal to inspection, nondistended, normoactive bowel sounds and non-tender Extremity normal to inspection Extremity Narrative: 1+ pitting edema of the ankles Neuro oriented x3, CN's II-XII intact bilaterally and no sensory deficits noted Motor Exam: strength 5/5 throughout; Negative for general weakness Psych mental status grossly normal Skin no rashes or lesions noted and no wounds MDM MDM MDM Narrative Medical decision making narrative: Patient is evaluated for headache, generalized malaise and high blood pressure. Patient has a history of renal artery stenosis, coronary artery disease and hypertension. She does not have any focal neurologic deficits at this time. On arrival her blood pressure is quite elevated at 261/104. Differential includes hypertensive emergency, intracranial hemorrhage, accelerated hypertension, infection and electrolyte abnormality as well as thyroid storm. Patient's TSH is normal as well as her heart rate. Cardiac work-up is largely normal. Patient is initially given 10 mg IV hydralazine. She is then given 20 mg IV labetalol. She continues to be hypertensive. She is given dose of Tylenol for her headache. She is then given additional 20 mg of IV hydralazine and fentanyl. While patient was have some improvement of her blood pressure and when I do not want to cause ischemia associated with relative hypotension, she continues to be symptomatic with her headache and have elevated high blood pressure. Given this and her advanced age as well as cardiac risk factors I think she would benefit from further admission and management of likely accelerated hypertension. At this time she does not have findings consistent with endorgan damage or hypertensive emergency. I do not think she requires drip for her blood pressure control. Patient does have hyponatremia which appears to be chronic and stable. While in the ER patient does have urinary frequency however urinalysis is not really consistent with UTI. Will send for culture she does have 1+ bacteria however I suspect this is more from epithelial contamination. She does not have a leukocytosis, fever or other infectious symptoms either. Case is discussed with my physician, Dr. Myers, and she will be admitted. Lab Data Attestation: I reviewed the patient's lab results. Labs: Laboratory Results - last 24 hr 08/16/22 08/16/22 08/16/22 00:27 00:37 00:37 WBC 4.7 RBC 3.57 L Hgb 10.6 L Hct 32.6 L MCV 91.3 MCH 29.7 MCHC 32.5 RDW Std Deviation 43.2 RDW Coeff of Lucía 12.9 Plt Count 322 MPV 9.6 Immature Gran % (Auto) 0.200 Neut % (Auto) 44.9 L Lymph % (Auto) 41.0 [place] % (Auto) 10.7 H Eos % (Auto) 2.6 Baso % (Auto) 0.6 Absolute Neuts (auto) 2.1 Absolute Lymphs (auto) 1.92 Nucleated RBC % 0 Sodium 129 L Potassium 4.3 Chloride 94 L Carbon Dioxide 26.0 Anion Gap 9 BUN 13 Creatinine 0.62 Estim Creat Clear Calc 51.31 Est GFR (MDRD) Af Amer 120 Est GFR (MDRD) Non-Af 99 BUN/Creatinine Ratio 21.0 H Glucose 108 H Calcium 8.9 Troponin I High Sens 16 TSH 3.08 Urine Color Urine Clarity Urine pH Ur Specific [place] Urine Protein Urine Glucose (UA) Urine Ketones Urine Occult Blood Urine Nitrite Urine Bilirubin Urine Urobilinogen Ur Leukocyte Esterase Urine RBC Urine WBC Ur Squamous Epith Cells Urine Bacteria Urine Mucus 08/16/22 00:59 WBC RBC Hgb Hct MCV MCH MCHC RDW Std Deviation RDW Coeff of Lucía Plt Count MPV Immature Gran % (Auto) Neut % (Auto) Lymph % (Auto) [place] % (Auto) Eos % (Auto) Baso % (Auto) Absolute Neuts (auto) Absolute Lymphs (auto) Nucleated RBC % Sodium Potassium Chloride Carbon Dioxide Anion Gap BUN Creatinine Estim Creat Clear Calc Est GFR (MDRD) Af Amer Est GFR (MDRD) Non-Af BUN/Creatinine Ratio Glucose Calcium Troponin I High Sens TSH Urine Color Yellow Urine Clarity Clear Urine pH 7.0 Ur Specific [place] 1.010 Urine Protein Negative Urine Glucose (UA) Normal Urine Ketones Negative Urine Occult Blood Negative Urine Nitrite Negative Urine Bilirubin Negative Urine Urobilinogen Normal Ur Leukocyte Esterase Negative Urine RBC 0 SEEN Urine WBC 0 SEEN Ur Squamous Epith Cells 0-5 SEEN Urine Bacteria 1+ Urine Mucus 0 SEEN Radiography Diagnostic Testing: Clinical Impression(s) from Imaging Studies Brain CT 08/16/22 00:50 IMPRESSION: Negative Brain CT without contrast. Electronically Signed: Melvina Rebolledo MD at 2:15 EST , Rhythm Strip Rhythm Strip: Sinus Rhythm Rate: 65 Ectopy: None EKG Initial EKG: Attestation: I personally reviewed and interpreted this EKG as follows: Interpretation: Sinus Rhythm Comments: Normal sinus rhythm at a rate of 65 bpm Normal axis Normal intervals LVH Normal ST segments No change compared to prior EKG on 08/31/2021 Prior EKG tracings: available for review Prior: Unchanged Critical Care Time Critical Care Time: Yes Critical care time (excluding procedures): 30-74 minutes (30), Including time spent: (Patient required multiple doses of IV antihypertensive for blood pressure control due to accelerated hypertension and repeat evaluations), Arranging Admission or Transfer and Performing Direct Patient Care at Bedside Discharge Plan Dx/Rx/DC Orders Clinical Impression: Hypertensive urgency, Headache, Urinary frequency Disposition Disposition: Acute Care Hospital [facility] Discharge Date/Time: 08/16/22 04:45
[2022-08-16 00:58] LABS: Absolute Lymphocyte Count 1.92 X10^3/uL (0.83-4.51); Absolute Neutrophil Count 2.1 X10^3/uL (2.0-7.7); Basophil# 0.03 X10^3/uL; Basophil% 0.6 % (0-1); Eosinophil# 0.12 X10^3/uL; Eosinophils% 2.6 % (0-5); Hematocrit 32.6 % (37-47); Hemoglobin 10.6 g/dL (12.0-15.0); Lymphocyte # 1.92 X10^3/ul (0.83-4.51); Mean Corp Hgb Conc 32.5 g/dL (32-36); Mean Corpuscular Hgb 29.7 pg (27.0-32.0); Mean Corpuscular Volume 91.3 fL (81-99); Mean Platelet Vol. 9.6 fl (6.2-12.0); Monocyte% 10.7 % (0-10); NRBC Flagged by Analyzer 0 % (0-5); Neutrophil % 44.9 % (47-70); Platelet Count 322 K/mm3 (150-450); RBC Distribution Width CV 12.9 % (11.6-14.6); RBC Distribution Width SD 43.2 fl (35.1-43.9); Red Blood Count 3.57 M/mm3 (4.2-5.4); White Blood Count 4.7 K/mm3 (4.4-11.0)
[2022-08-16 01:08] LABS: Mucous, Urine 0 SEEN /hpf (<or=2+); Red Blood Cells-Urine 0 SEEN /hpf (0-5); White Blood Cells 0 SEEN /hpf (0-5)
[2022-08-16 01:09] LABS: Color, Urine Yellow (Yellow); Glucose, Dipstick Normal (Normal); Ketone-Dipstick Negative (Negative); Leukocyte Esterase-Dipstick Negative /ul (Negative); Nitrite-Dipstick Negative (Negative); Occult Blood-Urine Negative /ul (Negative); Protein-Dipstick Negative (Negative); Urine Bilirubin Dipstick Negative (Negative); Urine Clarity Clear (Clear); Urine Urobilinogen Normal (Normal)
[2022-08-16] MEDS: hydrALAZINE 20 MG/ML Vial 10 MG IV (01:12)
[2022-08-16 01:27] LABS: Bacteria 1+ /hpf (None Seen); Squamous Epithelial Cells - UA 0-5 SEEN /hpf (5-10)
[2022-08-16 01:41] LABS: Thyroid Stim Hormone (TSH) 3.08 uIU/mL (0.358-3.74)
[2022-08-16 01:53] LABS: Anion Gap 9 (5-15); BUN 13 mg/dL (7-18); Calcium,Total 8.9 mg/dL (8.5-10.1); Chloride 94 mmol/L (98-107); Creatinine, Serum 0.62 mg/dL (0.55-1.02); EST Glomerular Filtration Rate 99 mL/min (>60); Est Glom Filt Rate - Afr Amer 120 mL/min (>60); Estimated Creatinine Clearance 51.31 ml/min; Glucose 108 mg/dL (74-106); Potassium 4.3 mmol/L (3.5-5.1); Sodium Level 129 mmol/L (136-145); Troponin-I HS 16 pg/mL (3.0-54.0)
[2022-08-16] MEDS: Labetalol (Prefilled) 20 MG/4 ML IV (02:25)
[2022-08-16] MEDS: Acetaminophen 325 MG Tablet 650 MG PO (02:40)
[2022-08-16] MEDS: fentaNYL 100 MCG/2 ML Ampul 50 MCG IV (03:48)
[2022-08-16] MEDS: hydrALAZINE 20 MG/ML Vial IV (03:48)
--- NOTE | 2022-08-16 03:49 | PCM.HP.STD ---
HPI - General General Date of Admission: 08/16/22 Date of Service: 08/16/22 Chief Complaint: Hypertensive urgency HPI Narrative SANJIV PEOPLES, is a 77 F who presents to the emergency room due to chief complaint of hypertension uncontrolled. Patient has a longstanding history of hypertension that has been poorly controlled. He complains of headache associated with blood pressures greater than 200/100 and despite having received hydralazine 10 mg and a dose of labetalol 20 mg in the emergency room she was unable to bring her blood pressure down by much and continues to have headaches. She also complains of frequency of urination but denies any new diuretics or excessive drinking. She states she was trying to get some work done around the house today but felt more tired than usual and took her clonidine and still had high blood pressure therefore she came in to be evaluated. She has no shortness of breath or fevers or chills at present time and will be admitted to the progressive care unit for hypertensive urgency. [facility] Medical History Anxiety and depression Atherosclerotic heart disease of [place] coronary artery without angina pectoris Chest pain CKD (chronic kidney disease) COVID-19 CVA (cerebral vascular accident) Difficulty balancing when standing Essential hypertension Fatigue Heart disease History of gastroesophageal reflux (GERD) HLD (hyperlipidemia) Hypertensive urgency Hyponatremia Kidney disease Knee pain Near syncope Non-rheumatic mitral regurgitation PAD (peripheral artery disease) Pessary maintenance Presence of stent in coronary artery (~04/16/20) Skin cancer SOB (shortness of breath) Syncope and collapse Syncope due to orthostatic hypotension Vaginal wall prolapse Home Medications aspirin 81 mg tablet,delayed release 81 mg PO DAILY 06/15/21 [History Last Taken 08/30/21] losartan 50 mg tablet 50 mg PO BID 06/15/21 [History Last Taken 08/31/21] carvedilol 25 mg tablet 25 mg PO BID #180 tabs 08/25/21 [Rx Last Taken 08/31/21] buspirone 5 mg tablet 5 mg PO TID ANXIETY 08/31/21 [History Last Taken 08/30/21] estradiol 0.01% (0.1 mg/gram) vaginal cream (Estrace) See Rx Instructions vaginal .COMPLEX #42.5 grams 10/19/21 [Rx Last Taken Unknown] hydralazine 100 mg tablet 100 mg PO QHS 03/21/22 [History Last Taken Unknown] hydralazine 50 mg tablet 50 mg PO DAILY 03/21/22 [History Last Taken Unknown] clonidine HCl 0.2 mg tablet 0.2 mg PO QHS PRN hypertensive emergency #30 tabs 04/18/22 [Rx Last Taken Unknown] levocetirizine 5 mg tablet 5 mg PO DAILY #90 tabs 05/24/22 [Rx Last Taken Unknown] alprazolam 0.5 mg tablet (Xanax) 0.25 mg PO QHS PRN anxiety #15 tabs 07/12/22 [Rx Last Taken Unknown] potassium chloride 20 mEq tablet,extended release 20 meq PO DAILY #90 tabs 07/12/22 [Rx Last Taken Unknown] sodium chloride 1,000 mg soluble tablet 1,000 mg PO BID 07/12/22 [History Last Taken Unknown] Allergy/AdvReac Type Severity Reaction Status Date / Time amlodipine AdvReac Intermediate swelling Verified 08/16/22 00:30 Ejpjaqd-[id number]-QrS Reductase AdvReac leg muscle Verified 08/16/22 00:30 Inhibitor weakness [Xxenpzu-Vuk-Kli Reductase Inhibitor] Family History Mother CAD (coronary artery disease) CVA (cerebral vascular accident) Brother CVA (cerebral vascular accident) Heart disease Kidney disease Diabetes Sister CAD (coronary artery disease) Sister Diabetes Brother Diabetes Brother CAD (coronary artery disease) Other Cancer Hypertension Surgical History H/O oral surgery History of bilateral cataract extraction History of renal stent Presence of coronary angioplasty implant and graft (~03/18/20) Social History household members: family 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 Smoking Status: Never smoker Electronic Cigarette Use: not used alcohol intake: never substance use type: does not use caffeine: No what type of physical activity do you participate in: none seatbelt use: always do you feel safe at home: Yes additional social history: - Retired 1 adopted daughter-, drug use ROS Constitutional Constitutional: Reports weakness; Denies chills or fever(s) Eyes Eyes: Denies change in vision ENT HEENT: Denies abnormal hearing Cardiovascular Cardiovascular: Denies edema Respiratory/Chest Respiratory/Chest: Denies cough or shortness of breath at rest Gastrointestinal Gastrointestinal: Denies abdominal pain Genitourinary Genitourinary: Reports polyuria and urinary frequency Musculoskeletal Musculoskeletal: Denies back pain Integumentary Integumentary: Denies dry skin Neurologic Neurologic: Denies abnormal gait Psychiatric Psychiatric: Reports anxiety Vital Signs Vital Signs Vital Signs: 08/16/22 00:27 08/16/22 00:27 08/16/22 00:55 Temperature 97.8 F Temperature Source Temporal Pulse Rate 74 Respiratory Rate 16 Respiratory Effort Normal Non-Labored Respiratory Pattern Normal Blood Pressure 261/104 H 237/92 H Blood Pressure Mean 156 140 Pulse Ox 99 Oxygen Delivery Method Room Air 08/16/22 01:14 08/16/22 01:33 08/16/22 02:13 Temperature Temperature Source Pulse Rate 63 66 69 Respiratory Rate 18 15 Respiratory Effort Respiratory Pattern Blood Pressure 195/91 H 200/73 H 219/78 H Blood Pressure Mean 125 115 125 Pulse Ox 96 95 96 Oxygen Delivery Method Room Air Room Air Room Air Weight Weight: 154 lb 8.705 oz Body Mass Index (BMI) 31.1 Physical Exam Const oriented x3 General Appearance: cooperative HEENT normocephalic and head/scalp atraumatic Eyes PERRL Neck no lymphadenopathy Lymph Lymphatic: no lymphadenopathy noted Resp normal respiratory effort, normal air movement and clear to auscultation bilaterally Cardio regular rate, regular rhythm, S1 normal heart sound and S2 normal heart sound GI normal to inspection, nondistended, normoactive bowel sounds Extremity no clubbing, cyanosis or edema Skin General Skin Exam: no breakdown Neuro no focal motor deficits and no sensory deficits noted Psych Mood & Affect: anxious Results Lab / Micro Data Result Diagrams: 08/16/22 00:37 08/16/22 00:37 Labs: Laboratory Results - last 24 hr 08/16/22 00:27: TSH 3.08 08/16/22 00:37: WBC 4.7, RBC 3.57 L, Hgb 10.6 L, Hct 32.6 L, MCV 91.3, MCH 29.7, MCHC 32.5, RDW Std Deviation 43.2, RDW Coeff of Lucía 12.9, Plt Count 322, MPV 9.6, Immature Gran % (Auto) 0.200, Neut % (Auto) 44.9 L, Lymph % (Auto) 41.0, Elliott % (Auto) 10.7 H, Eos % (Auto) 2.6, Baso % (Auto) 0.6, Absolute Neuts (auto) 2.1, Absolute Lymphs (auto) 1.92, Nucleated RBC % 0 08/16/22 00:37: Sodium 129 L, Potassium 4.3, Chloride 94 L, Carbon Dioxide 26.0, Anion Gap 9, BUN 13, Creatinine 0.62, Estim Creat Clear Calc 51.31, Est GFR (MDRD) Af Amer 120, Est GFR (MDRD) Non-Af 99, BUN/Creatinine Ratio 21.0 H, Glucose 108 H, Calcium 8.9, Troponin I High Sens 16 08/16/22 00:59: Urine Color Yellow, Urine Clarity Clear, Urine pH 7.0, Ur Specific [place] 1.010, Urine Protein Negative, Urine Glucose (UA) Normal, Urine Ketones Negative, Urine Occult Blood Negative, Urine Nitrite Negative, Urine Bilirubin Negative, Urine Urobilinogen Normal, Ur Leukocyte Esterase Negative, Urine RBC 0 SEEN, Urine WBC 0 SEEN, Ur Squamous Epith Cells 0-5 SEEN, Urine Bacteria 1+, Urine Mucus 0 SEEN Radiology Impression Brain CT 08/16/22 00:50 IMPRESSION: Negative Brain CT without contrast. Electronically Signed: Melvina Rebolledo MD at 2:15 EST Reading Location ID and State: [address] [place] [address] Tel , Service support , Assessment & Plan Assessment/Plan (1) Urinary frequency: (2) Renal artery stenosis: (3) Hyponatremia: (4) Essential hypertension: (5) Hypertensive urgency: PLAN: Plan 1. Hypertensive urgency. Patient will be admitted to progressive care unit, add hydralazine 20 mg IV every 6 hours as needed BP greater than 160/100 , will continue home antihypertensive medications and continue to monitor. 2. Hyponatremia patient's sodium currently 129 repeat BMP in the morning 3. Urinary frequency we will add oxybutynin if patient is not already on antispasmodic therapy 4. DVT prophylaxis?Lovenox weight heparin Charges/Coding Visit Charges Inpatient E&M: 53920 Init Hosp L3
[2022-08-16] MEDS: ALPRAZolam 0.25 MG Tablet PO (04:36)
[2022-08-16] MEDS: Losartan Potassium 50 MG Tablet PO ×2 (06:36→21:46)
[2022-08-16] MEDS: Oxybutynin 5 MG Tablet PO ×3 (06:36→21:46)
[2022-08-16] MEDS: busPIRone 5 MG Tablet PO ×3 (06:37→21:46)
[2022-08-16 07:18] LABS: Anion Gap 6 (5-15); BUN 10 mg/dL (7-18); BUN/Creat Ratio 18.8 RATIO (10-20); Calcium,Total 8.5 mg/dL (8.5-10.1); Chloride 93 mmol/L (98-107); Creatinine, Serum 0.53 mg/dL (0.55-1.02); EST Glomerular Filtration Rate 118 mL/min (>60); Est Glom Filt Rate - Afr Amer 143 mL/min (>60); Estimated Creatinine Clearance 49.33 ml/min; Glucose 108 mg/dL (74-106); Potassium 3.9 mmol/L (3.5-5.1); Sodium Level 126 mmol/L (136-145)
[2022-08-16] MEDS: Aspirin E.C. 81 MG Tablet PO (10:27)
[2022-08-16] MEDS: Loratadine 10 MG Tablet PO (10:27)
[2022-08-16] MEDS: hydrALAZINE 50 MG Tablet PO ×2 (10:28→21:45)
[2022-08-16] MEDS: Sodium Chloride 1 GM Tablet PO ×2 (10:29→21:46)
[2022-08-16] MEDS: Potassium Chloride Oral Tablet 20 MEQ PO (10:30)
[2022-08-16] MEDS: Carvedilol 25 MG Tablet PO ×2 (10:30→21:45)
[2022-08-16] MEDS: hydroCHLOROthiazide 25 MG Tablet PO (10:32)
--- NOTE | 2022-08-16 10:55 | CASEMGMT ---
YESSY GANDHI Face to Face with patient for initial transition planning/care coordination assessment. RN HIRAM introduced self and role at [facility]. Patient lying in bed, alert and oriented. Patient willing to participate in assessment and is able to answer all questions appropriately. Care providers, pharmacy, and demographics verified. Patient wishes to discharge home, will monitor progress with therapy. Patient states he has no further needs or concerns at this time. CM to follow for discharge planning needs that may arise. PCP: Jayashree Specialists: Daniele, filer and sander; Juventino, medical center representative Preferred Pharmacy: [facility] Insurance: [employer] Prescription Benefit: yes Living Will/HPOA: yes, niece Chantelle De Oliveira LNOK: niece, granddaughter, sister in law Living Arrangements: Patient lives with granddaughter in a single story condo with no steps to enter. Patient states she is normally independent at home. Transportation: self, granddaughter DME/HHC: Patient has shower chair, raised toilet, cane, walker, and grab bars at home. No previous HHC or SNF. Disposition Plan: Patient to discharge home with family support and follow-up plans in place. Will monitor for possible HHC at discharge. Lachelle HAMILTON, RN, CM
[2022-08-16] MEDS: Acetaminophen 500 MG Tablet PO ×2 (15:18→23:58)
[2022-08-16] MEDS: Ensure Plus High Protein 120 ML LIQUID PO (18:21)
[2022-08-16] MEDS: ALPRAZolam 0.5 MG Tablet 0.25 MG PO (23:58)
[2022-08-17 03:50] VITALS: BP 154/74; PULSE 60; RESP 16; TEMP 36.6; O2SAT 96
[2022-08-17] MEDS: busPIRone 5 MG Tablet PO ×2 (05:45→13:33)
[2022-08-17 06:08] LABS: Anion Gap 9 (5-15); BUN 12 mg/dL (7-18); BUN/Creat Ratio 20.2 RATIO (10-20); Calcium,Total 8.4 mg/dL (8.5-10.1); Chloride 91 mmol/L (98-107); EST Glomerular Filtration Rate 104 mL/min (>60); Est Glom Filt Rate - Afr Amer 125 mL/min (>60); Estimated Creatinine Clearance 49.33 ml/min; Glucose 86 mg/dL (74-106); Potassium 4.1 mmol/L (3.5-5.1); Sodium Level 125 mmol/L (136-145)
[2022-08-17 07:08] VITALS: O2SAT 97
[2022-08-17 07:55] VITALS: BP 181/71; PULSE 63; RESP 16; TEMP 36.5; O2SAT 97
[2022-08-17 09:05] VITALS: BP 181/71; PULSE 63
[2022-08-17] MEDS: Carvedilol 25 MG Tablet PO (09:05)
[2022-08-17] MEDS: Loratadine 10 MG Tablet PO (09:05)
[2022-08-17] MEDS: Losartan Potassium 50 MG Tablet PO (09:05)
[2022-08-17] MEDS: hydroCHLOROthiazide 25 MG Tablet PO (09:05)
[2022-08-17] MEDS: Oxybutynin 5 MG Tablet PO (09:05)
[2022-08-17] MEDS: Sodium Chloride 1 GM Tablet PO (09:05)
[2022-08-17] MEDS: Aspirin E.C. 81 MG Tablet PO (09:05)
[2022-08-17] MEDS: Potassium Chloride Oral Tablet 20 MEQ PO (09:05)
[2022-08-17] MEDS: hydrALAZINE 50 MG Tablet PO (09:05)
[2022-08-17] MEDS: Ensure Plus High Protein 120 ML LIQUID PO (09:14)
[2022-08-17] MEDS: Acetaminophen 500 MG Tablet PO (09:14)
--- NOTE | 2022-08-17 09:45 | PCM.DC ---
Discharge Instructions Diet Discharge Diet: Low fat / Low cholesterol Activity Discharge Activity: Return to Normal Activity Dressing / Incision Call your doctor if you observe: Fever of 101 or Higher, Shortness of breath, Dizziness, Fainting spells, Chest pain and Increased palpitations (irregular heartbeat) Follow Up Care Test Results: Test results from this visit will be discussed in further detail at your follow-up appointment, if applicable. Discharge Plan Admission Admit Date/Time: 08/16/22 03:57 Attending Provider: Dimitris Gonzalez Primary Care Provider: Aracely Blanc Consulting Providers: Lei Myers Instructions Additional Instructions / Restrictions: Follow-up with your PCP in 3 to 5 days to monitor your sodium as an outpatient. Also follow-up with your dealer accounts investigator Discharge Orders/Prescriptions Prescriptions: New amlodipine 10 mg Tablet 10 mg PO DAILY Qty: 30 0RF furosemide 20 mg Tablet 20 mg PO DAILY Qty: 30 0RF Continued losartan 50 mg tablet 50 mg PO BID aspirin 81 mg tablet,delayed release (DR/EC) 81 mg PO DAILY estradiol [Estrace] 0.01 % (0.1 mg/gram) cream See Rx Instructions VAGINAL .COMPLEX Qty: 42.5 2RF Rx Instructions: pea sized amount VAGINAL twice a week; sodium chloride 1,000 mg tablet,soluble 1,000 mg PO BID Rx Instructions: take 2 tablets in the morning, 1 tablet in the afternoon, and 2 tablets at night. hydralazine 50 mg tablet 50 mg PO BID Rx Instructions: takes in the am and at noon clonidine HCl 0.2 mg tablet 0.2 mg PO QHS PRN (Reason: hypertensive emergency) Qty: 30 3RF potassium chloride 20 mEq tablet extended release 20 meq PO DAILY Qty: 90 0RF alprazolam [Xanax] 0.5 mg tablet 0.25 mg PO QHS PRN (Reason: anxiety) Qty: 15 0RF buspirone 5 mg tablet 5 mg PO TID Label Comments: Take 1 Tablet orally 3 times per day for 30 days hydralazine 100 mg tablet 100 mg PO QHS carvedilol 25 mg tablet 25 mg PO BID Qty: 180 3RF levocetirizine 5 mg tablet 5 mg PO DAILY Qty: 90 0RF Referrals / Follow Up: Aracely Blanc MD [Primary Care Provider] - Within 1 Week Disposition Disposition (needs filled in before D/C Order can be placed): Home, Self Care
[2022-08-17 10:20] VITALS: BP 116/63
--- NOTE | 2022-08-17 10:24 | DS.PCM_ITS ---
Providers Date of Admission: 08/16/22 Primary Care Physician: Dr. Aracely Blanc MD Reason For Visit: HYPERTENSIVE URGENCY Diagnosis Discharge Diagnosis (1) Urinary frequency: Status: Acute Code(s): R35.0 - Frequency of micturition (2) Renal artery stenosis: Status: Acute Code(s): I70.1 - Atherosclerosis of renal artery (3) Hyponatremia: Status: Acute Code(s): E87.1 - Hypo-osmolality and hyponatremia (4) Essential hypertension: Status: Chronic Code(s): I10 - Essential (primary) hypertension (5) Hypertensive urgency: Status: Acute Code(s): I16.0 - Hypertensive urgency Medications at Discharge Home Medications aspirin 81 mg tablet,delayed release 81 mg PO DAILY heart 06/15/21 losartan 50 mg tablet 50 mg PO BID bp 06/15/21 carvedilol 25 mg tablet 25 mg PO BID #180 tabs 08/25/21 buspirone 5 mg tablet 5 mg PO TID ANXIETY 08/31/21 estradiol 0.01% (0.1 mg/gram) vaginal cream (Estrace) See Rx Instructions vaginal .COMPLEX #42.5 grams 10/19/21 hydralazine 100 mg tablet 100 mg PO QHS bp 03/21/22 hydralazine 50 mg tablet 50 mg PO BID bp 03/21/22 clonidine HCl 0.2 mg tablet 0.2 mg PO QHS PRN hypertensive emergency #30 tabs 04/18/22 levocetirizine 5 mg tablet 5 mg PO DAILY #90 tabs 05/24/22 alprazolam 0.5 mg tablet (Xanax) 0.25 mg PO QHS PRN anxiety #15 tabs 07/12/22 potassium chloride 20 mEq tablet,extended release 20 meq PO DAILY #90 tabs 07/12/22 sodium chloride 1,000 mg soluble tablet 1,000 mg PO BID supplement 07/12/22 amlodipine 10 mg tablet 10 mg PO DAILY #30 tabs 08/17/22 furosemide 20 mg tablet 20 mg PO DAILY #30 tabs 08/17/22 Hospital Course Operations None Procedures None Summary of Care Provided Minutes Spent on Discharge: 39 Hospital Course: Per HPI: SANJIV PEOPLES, is a 77 F who presents to the emergency room due to chief complaint of hypertension uncontrolled.? Patient has a longstanding history of hypertension that has been poorly controlled.? He complains of headache associated with blood pressures greater than 200/100 and despite having received hydralazine 10 mg and a dose of labetalol 20 mg in the emergency room she was unable to bring her blood pressure down by much and continues to have headaches.? She also complains of frequency of urination but denies any new diuretics or excessive drinking.? She states she was trying to get some work done around the house today but felt more tired than usual and took her clonidine and still had high blood pressure therefore she came in to be evaluated.? She has no shortness of breath or fevers or chills at present time and will be admitted to the progressive care unit for hypertensive urgency. Hospital Course: 1. Hypertensive urgency/peripheral artery disease status post stenting of renal artery stenosis/CAD status post stent/hyponatremia?77-year-old female who has had extensive outpatient work-up for her hypertension presents with hypertensive urgency. She has had renin and aldosterone tested which was normal as well as a cortisol stim test which were normal. She has had stents to her renal artery which does not appear to have made a difference. She is on multiple blood pressure medications, unfortunately given her hyponatremia hydrochlorothiazide is not a great option. I did discuss the case with her workday senior associate and will proceed with a low-dose Lasix and I discussed with her that we are going to restart her Norvasc. She did mention that she did get swelling in the past but I discussed with her that swelling is a reasonable side effect to deal with if it means controlling her blood pressure we did discuss mitigation strategies, the Lasix will help but she can also wear WENDY hose or compression stockings. She was discharged early because she was asking to be discharged today, I discussed with her the possible discharge today and she expressed understanding of the risk benefits of going home. I do recommend that she follow-up with her PCP in 3 to 5 days to monitor her sodium and also to follow-up with her workday senior associate. Physical Exam Narrative General: Alert, Oriented x3, Cooperative, No apparent distress HEENT: Atraumatic, PERRLA, EOMI, Normocephalic Oral: Moist Mucosa Neck: Supple, No JVD Lungs: Diminished, Normal air movement, No rhonchi, No wheeze, No rales Cardiovascular: Regular rate, Regular Rhythm, Normal S1, Normal S2, No murmurs Abdomen: Soft, Non Tender, Non-Distended, No Hepato-splenomegaly Extremities: No edema, Capillary Refill Less than 3 Seconds Skin: No rashes, No breakdown Musculoskeletal: No Tenderness to Palpation of Joints or Extremities Neurological: Cranial nerves II-XII grossly intact, Motor Exam 5/5 strength throughout, Sensory exam intact to light touch and pain Psych/Mental Status: Normal Affect, Appropriate Weight / BMI Weight Weight: 148 lb 9.465 oz Body Mass Index (BMI) 29.9 ABG / Lab / Microbiology Data Result Diagrams: 08/16/22 00:37 08/17/22 04:51 Laboratory: Laboratory Results - last 24 hr 08/17/22 04:51: Sodium 125 L, Potassium 4.1, Chloride 91 L, Carbon Dioxide 25.0, Anion Gap 9, BUN 12, Creatinine 0.60, Estim Creat Clear Calc 49.33, Est GFR (MDRD) Af Amer 125, Est GFR (MDRD) Non-Af 104, BUN/Creatinine Ratio 20.2 H, Glucose 86, Calcium 8.4 L Microbiology: Microbiology 08/16/22 00:59 Urine, Clean Catch Urine Culture - Preliminary Culture exhibits no growth. D/C Instructions Discharge Diet: Low fat / Low cholesterol Call your doctor if you observe: Fever of 101 or Higher, Shortness of breath, Dizziness, Fainting spells, Chest pain and Increased palpitations (irregular heartbeat) Meaningful Use Info Meaningful Use Diagnoses (Choose all that apply): None applicable Discharge Plan Admission Admit Date/Time: 08/16/22 03:57 Attending Provider: Dimitris Gonzalez Primary Care Provider: Aracely Blanc Consulting Providers: Lei Myers Instructions Additional Instructions / Restrictions: Follow-up with your PCP in 3 to 5 days to monitor your sodium as an outpatient. Also follow-up with your workday senior associate Discharge Orders/Prescriptions Prescriptions: New amlodipine 10 mg Tablet 10 mg PO DAILY Qty: 30 0RF furosemide 20 mg Tablet 20 mg PO DAILY Qty: 30 0RF Continued losartan 50 mg tablet 50 mg PO BID aspirin 81 mg tablet,delayed release (DR/EC) 81 mg PO DAILY estradiol [Estrace] 0.01 % (0.1 mg/gram) cream See Rx Instructions VAGINAL .COMPLEX Qty: 42.5 2RF Rx Instructions: pea sized amount VAGINAL twice a week; sodium chloride 1,000 mg tablet,soluble 1,000 mg PO BID Rx Instructions: take 2 tablets in the morning, 1 tablet in the afternoon, and 2 tablets at night. hydralazine 50 mg tablet 50 mg PO BID Rx Instructions: takes in the am and at noon clonidine HCl 0.2 mg tablet 0.2 mg PO QHS PRN (Reason: hypertensive emergency) Qty: 30 3RF potassium chloride 20 mEq tablet extended release 20 meq PO DAILY Qty: 90 0RF alprazolam [Xanax] 0.5 mg tablet 0.25 mg PO QHS PRN (Reason: anxiety) Qty: 15 0RF buspirone 5 mg tablet 5 mg PO TID Label Comments: Take 1 Tablet orally 3 times per day for 30 days hydralazine 100 mg tablet 100 mg PO QHS carvedilol 25 mg tablet 25 mg PO BID Qty: 180 3RF levocetirizine 5 mg tablet 5 mg PO DAILY Qty: 90 0RF Referrals / Follow Up: Aracely Blanc MD [Primary Care Provider] - Within 1 Week Disposition Disposition (needs filled in before D/C Order can be placed): Home, Self Care Charges/Coding Visit Charges Inpatient E&M: 44892 Disch Hosp >30min
--- NOTE | 2022-08-17 10:48 | CASEMGMT ---
Addendum entered by Lachelle Bhatt 08/17/22 13:09: YESSY GANDHI back in to inquire about preferences for HHC. Patient states she prefers [facility]. RN HIRAM [facility] and [facility]. Original Note: YESSY CM in to discuss discharge planning with patient. YESSY CM discuss possible HHC with patient, patient is agreeable. A list of HHC providers including quality and resource use data and consistent with the patient?s preferred geographical region, medical needs, and insurance network were provided from the [employer] Guide. Patient to review list and provide preferences. CM will continue to follow this patient and plan for a safe discharge.
--- NOTE | 2022-08-17 10:50 | PHA.DC.MR ---
Pharmacy Service has performed discharge medication reconciliation for this patient. The patient's discharge medication list was reviewed for discrepancies and discrepancies were resolved. Home Medications aspirin 81 mg tablet,delayed release 81 mg PO DAILY heart 06/15/21 losartan 50 mg tablet 50 mg PO BID bp 06/15/21 carvedilol 25 mg tablet 25 mg PO BID #180 tabs 08/25/21 buspirone 5 mg tablet 5 mg PO TID ANXIETY 08/31/21 estradiol 0.01% (0.1 mg/gram) vaginal cream (Estrace) See Rx Instructions vaginal .COMPLEX #42.5 grams 10/19/21 hydralazine 100 mg tablet 100 mg PO QHS bp 03/21/22 hydralazine 50 mg tablet 50 mg PO BID bp 03/21/22 clonidine HCl 0.2 mg tablet 0.2 mg PO QHS PRN hypertensive emergency #30 tabs 04/18/22 levocetirizine 5 mg tablet 5 mg PO DAILY #90 tabs 05/24/22 alprazolam 0.5 mg tablet (Xanax) 0.25 mg PO QHS PRN anxiety #15 tabs 07/12/22 potassium chloride 20 mEq tablet,extended release 20 meq PO DAILY #90 tabs 07/12/22 sodium chloride 1,000 mg soluble tablet 1,000 mg PO BID supplement 07/12/22 amlodipine 10 mg tablet 10 mg PO DAILY #30 tabs 08/17/22 furosemide 20 mg tablet 20 mg PO DAILY #30 tabs 08/17/22
[2022-08-17] MEDS: amLODIPine 10 MG Tablet PO (12:01)
[2022-08-17 13:46] VITALS: BP 156/63; PULSE 62; RESP 18; TEMP 36.6; O2SAT 99
== END 2022-08-17 15:22 | disposition home or self-care (01) | DRG 305 ==
LOC: ED 03:43 → PCU 04:36
PROVIDERS: Admitting Provider Family Medicine; Emergency Provider Emergency Medicine; PCP Internal Medicine; Visit Provider Family Medicine
DX: I16.0 Hypertensive urgency (principal); E87.1 Hypo-osmolality and hyponatremia; I70.1 Atherosclerosis of renal artery; I73.9 Peripheral vascular disease, unspecified; I10 Essential (primary) hypertension; I25.10 Atherosclerotic heart disease of native coronary artery without angina pectoris; R35.0 Frequency of micturition; Z95.5 Presence of coronary angioplasty implant and graft; Z96.0 Presence of urogenital implants; Z79.82 Long term (current) use of aspirin; Z79.899 Other long term (current) drug therapy; Z86.16 Personal history of COVID-19; Z86.73 Personal history of transient ischemic attack (TIA), and cerebral infarction without residual deficits
CPT/HCPCS: 36415; 70450; 80048; 81001; 84443; 84484; 85025; 87086; 93005; 97110; 97162; 97166; 97530; 97535; 97802; 99285; J7030; A4216

== ENCOUNTER → 2022-08-25 | Outpatient (CLI) | payer MEDICARE, SELFPAY ==
[2021-06-28 09:37] VITALS: BMI 34.1
[2022-08-25 12:52] LABS: Anion Gap 8 (5-15); BUN 16 mg/dL (7-18); BUN/Creat Ratio 23.3 RATIO (10-20); Calcium,Total 9.3 mg/dL (8.5-10.1); Chloride 97 mmol/L (98-107); Cholesterol 202 mg/dL (200); Creatinine, Serum 0.69 mg/dL (0.55-1.02); EST Glomerular Filtration Rate 88 mL/min (>60); Est Glom Filt Rate - Afr Amer 106 mL/min (>60); Glucose 102 mg/dL (74-106); High Density Lipoprotein 58 mg/dL; Potassium 4.8 mmol/L (3.5-5.1); Sodium Level 130 mmol/L (136-145); Triglycerides 104 mg/dL; Very Low Density Lipoprotein 21 mg/dL (5-40)
== END | disposition home or self-care (01) ==
LOC: BIMLAB 10:56
PROVIDERS: PCP Internal Medicine; Referring Provider Internal Medicine Nephrology; Visit Provider Internal Medicine Nephrology
DX: N18.2 Chronic kidney disease, stage 2 (mild) (principal); I25.10 Atherosclerotic heart disease of native coronary artery without angina pectoris
CPT/HCPCS: 36415; 80048; 80061

== ENCOUNTER → 2022-08-27 | Outpatient (CLI) | payer MEDICARE, SELFPAY ==
[2021-06-28 09:37] VITALS: BMI 34.1
[2022-08-27 13:20] LABS: Color, Urine Amber (Yellow); Glucose, Dipstick Normal (Normal); Ketone-Dipstick Negative (Negative); Leukocyte Esterase-Dipstick 500 /ul (Negative); Nitrite-Dipstick Positive (Negative); Occult Blood-Urine 25 /ul (Negative); Protein-Dipstick 15 mg/dl (Negative); Urine Clarity Sl. Cloudy (Clear); Urine Urobilinogen 4 mg/dl (Normal)
[2022-08-27 13:38] LABS: Urine Bilirubin Dipstick 3 mg/dL (Negative)
== END | disposition home or self-care (01) ==
LOC: HH 13:03
PROVIDERS: PCP Internal Medicine; Visit Provider Internal Medicine
DX: R35.0 Frequency of micturition (principal)
CPT/HCPCS: 81002; 87086

== ENCOUNTER → 2022-10-04 | Outpatient (CLI) | payer MEDICARE, SELFPAY ==
[2021-06-28 09:37] VITALS: BMI 34.1
--- NOTE | 2022-10-04 12:21 | US_ITS ---
EXAM: US renal. HISTORY: UTI TECHNIQUE: US Kidney(s) complete (eg, kidneys and bladder) COMPARISON: None. LIMITATIONS: Suboptimal visualization due to poor acoustic windows.. RIGHT KIDNEY Size: 10 cm in length Echogenicity: Normal. Parenchymal thickness: Normal. Hydronephrosis: None. Calculi: None. Cysts/masses: None. LEFT KIDNEY Size: 12.7 cm in length Echogenicity: Normal. Parenchymal thickness: Normal. Hydronephrosis: None. Calculi: None. Cysts/masses: 6 x 4.4 cm simple cyst in the lower pole. BLADDER: Incompletely distended. Ureteral jets not visualized bilaterally. OTHER: None. CONCLUSION: No hydronephrosis. 6 cm left renal cyst. Electronically Signed: Raúl Romero MD at 5:56 EDT , US/Kidney and Bladder IMPRESSION: undefined
== END | disposition home or self-care (01) ==
PROVIDERS: PCP Internal Medicine; Referring Provider Urology; Visit Provider Urology
DX: N39.0 Urinary tract infection, site not specified (principal)
CPT/HCPCS: 76770

== ENCOUNTER 2023-04-09 12:15 | Inpatient (IN) | payer MEDICARE, SELFPAY ==
[2021-06-28 09:37] VITALS: BMI 34.1
[2023-04-09 12:38] VITALS: BP 155/62; PULSE 69; RESP 16; TEMP 36.6; O2SAT 96
--- NOTE | 2023-04-09 13:32 | HP.PCM_ITS ---
HPI - General General Date of Admission: 04/09/23 Date of Service: 04/10/23 Chief Complaint: Here for rehabilitation. HPI Narrative SANJIV PEOPLES, is a 78 Female who presents with followin04/05/2023 Admit to [facility]. 04/05/2023 Dr. Adorno performed robot assisted right total knee arthroplasty. 04/05/2023 Pain controlled. Lives alone, consider discharge to SNF. Tylenol, Oxycodone for right knee pain. Aspirin 81mg twice daily for 2 weeks for DVT prophylaxis. Hold estrogen for 2 weeks, patient declined Xarelto. Hemoglobin 10.3. Normal saline for hyponatremia. 04/06/2023 RRF for sick, dizzy, going to bathroom, nonresponsive. Right knee pain worse today. Tylenol, Oxycodone for pain. Hold vaginal premarin, aspirin 81mg twice daily x 2 weeks DVT prophylaxis. WBAT with PT. Original plan to discharge home alone with home health care. But now considering discharge to SNF. 04/09/2023 Admit to TCU with debility, here for rehabilitation, strengthening prior to discharge home alone. [facility] Medical History (Updated 04/09/23 @ 13:[address] Sarabjit Tam MD) Anxiety and depression Atherosclerotic heart disease of [place] coronary artery without angina pectoris Chest pain CKD (chronic kidney disease) COVID-19 CVA (cerebral vascular accident) Difficulty balancing when standing Essential hypertension Fatigue Heart disease History of gastroesophageal reflux (GERD) HLD (hyperlipidemia) Hypertensive urgency Hypertensive urgency Hyponatremia Kidney disease Knee pain Near syncope Non-rheumatic mitral regurgitation PAD (peripheral artery disease) Pessary maintenance Presence of stent in coronary artery (~04/16/20) Renal artery stenosis Skin cancer SOB (shortness of breath) Syncope and collapse Syncope due to orthostatic hypotension Urinary frequency Vaginal wall prolapse Home Medications aspirin 81 mg tablet,delayed release 81 mg PO BID.TCU heart 06/15/21 [History Last Taken 08/30/21] sodium chloride 1,000 mg soluble tablet 1,000 mg PO BID supplement 07/12/22 [History Last Taken Unknown] furosemide 20 mg tablet 20 mg PO DAILY water pill #30 tabs 08/17/22 [Rx Last Taken Unknown] carvedilol 25 mg tablet 12.5 mg (1/2 x 25 mg) PO BID bp #180 tabs 08/24/22 [Rx Last Taken Unknown] ezetimibe 10 mg tablet 10 mg PO DAILY cholesterol #30 tabs 09/19/22 [Rx Last Taken Unknown] pantoprazole 40 mg tablet,delayed release 40 mg PO DAILY acid reflux #90 tabs 03/22/23 [Rx Last Taken Unknown] potassium chloride 20 mEq tablet,extended release See Rx Instructions .Route .COMPLEX potassium #90 tabs 04/03/23 [Rx Last Taken Unknown] acetaminophen 500 mg tablet 1,000 mg PO Q8H pain 04/09/23 [History Last Taken Unknown] alprazolam 0.5 mg tablet (Xanax) 0.5 mg PO DAILY PRN PRN anxiety 04/09/23 [History Last Taken Unknown] ascorbic acid (vitamin C) 500 mg tablet 500 mg PO DAILY vit c 04/09/23 [History Last Taken Unknown] buspirone 5 mg tablet 5 mg PO TID ANXIETY 04/09/23 [History Last Taken Unknown] cholecalciferol (vitamin D3) 25 mcg (1,000 unit) capsule 25 mcg PO DAILY vit D3 04/09/23 [History Last Taken Unknown] docusate sodium 100 mg capsule (Colace) 100 mg PO BID.TCU bowels 04/09/23 [History Last Taken Unknown] ferrous sulfate 325 mg (65 mg iron) tablet (Feosol) 325 mg PO BID iron supplement 04/09/23 [History Last Taken Unknown] folic acid 1 mg tablet 1 mg PO DAILY supp 04/09/23 [History Last Taken Unknown] ipratropium bromide 42 mcg (0.06 %) nasal spray 2 spray intranasal BID PRN PRN allergies 04/09/23 [History Last Taken Unknown] magnesium hydroxide 400 mg/5 mL oral suspension (Milk of Magnesia) 30 ml PO DAILY PRN bowels 04/09/23 [History Last Taken Unknown] oxycodone 5 mg tablet 5 mg PO Q6H PRN pain (scale score 7-10) 04/09/23 [History Last Taken Unknown] polyethylene glycol 3350 17 gram/dose oral powder (Miralax) 17 g PO DAILY bowels 04/09/23 [History Last Taken Unknown] sennosides 8.6 mg-docusate sodium 50 mg tablet (Stool Softener-Stimulant Laxative) 2 tab-cap PO BID bowels 04/09/23 [History Last Taken Unknown] Allergy/AdvReac Type Severity Reaction Status Date / Time amlodipine AdvReac Intermediate swelling Verified 03/28/23 15:04 [id number]-[id number] Reductase AdvReac leg muscle Verified 03/28/23 15:04 Inhibitor weakness [Iyzgwyj-Akf-Lqv Reductase Inhibitor] Family History Mother CAD (coronary artery disease) CVA (cerebral vascular accident) Brother CVA (cerebral vascular accident) Heart disease Kidney disease Diabetes Sister CAD (coronary artery disease) Sister Diabetes Brother Diabetes Brother CAD (coronary artery disease) Other Cancer Hypertension Surgical History (Updated 04/09/23 @ 13:[address] Sarabjit Tam MD) H/O oral surgery History of bilateral cataract extraction History of renal stent Presence of coronary angioplasty implant and graft (~03/18/20) S/P skin biopsy (~08/2022) Social History (Updated 04/09/23 @ 13:[address] 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 Smoking Status: Never smoker Electronic Cigarette Use: not used alcohol intake: never substance use type: does not use caffeine: No what type of physical activity do you participate in: none seatbelt use: always do you feel safe at home: Yes additional social history: - Retired 1 adopted daughter-, drug use ROS Constitutional Constitutional: Denies chills, fever(s) or weight gain ENT HEENT: Denies headache(s), nasal congestion or nasal discharge Cardiovascular Cardiovascular: Denies chest pain or palpitations Respiratory/Chest Respiratory/Chest: Denies cough, excessive phlegm production or shortness of breath with exertion Gastrointestinal Gastrointestinal: Denies abdominal pain, nausea or vomiting Genitourinary Genitourinary: Denies dysuria Musculoskeletal Musculoskeletal: Denies joint pain or joint swelling Integumentary Integumentary: Denies rash or wounds Neurologic Neurologic: Denies focal weakness, numbness or tingling Psychiatric Psychiatric: Denies anxiety, auditory hallucinations, depression, homicidal ideation or suicidal ideation Vital Signs Vital Signs Vital Signs: 04/09/23 12:38 Temperature 98 F Temperature Source Oral Pulse Rate 69 Respiratory Rate 16 Blood Pressure 155/62 H Blood Pressure Mean 93 Blood Pressure Position Sitting Blood Pressure Location Right Arm Pulse Ox 96 Oxygen Delivery Method Room Air Physical Exam Const alert General Appearance: cooperative HEENT normocephalic Eyes PERRL and EOMs intact bilaterally Neck supple, no JVD and no carotid bruits Resp normal respiratory effort, normal air movement and clear to auscultation bilaterally Cardio regular rate and regular rhythm GI normal to inspection, nondistended, normoactive bowel sounds, non-tender and non-distended Extremity normal capillary refill Extremity Narrative: Right knee, right thigh incision/waqar clean, dry, intact. General Extremity: Negative for edema Skin no rashes or lesions noted General Skin Exam: no breakdown Psych affect normal Appearance: appropriate Results Lab / Micro Data 04/10/23 05:47 04/10/23 05:47 Assessment & Plan Assessment/Plan (1) Debility: (2) Osteoarthritis of right knee: (3) Status post total right knee replacement: (4) Syncope: (5) Hypertension: (6) Hyponatremia: (7) Atrophic vaginitis: (8) HLD (hyperlipidemia): QUALIFIERS: Hyperlipidemia type: unspecified Qualified Code(s): E78.5 - Hyperlipidemia, unspecified (9) GERD (gastroesophageal reflux disease): (10) Hypokalemia: (11) Anxiety: PLAN: Plan 78 year old female with below past medical history hospitalized for right total knee arthroplasty 04/05/[address] Adorno, postoperative course complicated by syncope, hyponatremia, admitted to TCU with debility, here for rehabilitation, strengthening, prior to discharge home alone. * Debility - PT/OT. * Pain - Tylenol 1000mg q8, Oxycodone 5mg q4h prn pain (6-10). * Bowel - Miralax 17gm daily, senna/colace 2 tablets bid, Magnesium citrate 300ml daily prn. * Adult immunization - Administer pneumonia vaccine, covid19 vaccine, flu vaccine as appropriate. * DVT prophylaxis - Aspirin 81mg po bid thru 04/23/2023. * Anxiety - Xanax 0.5mg daily prn, Buspar 5mg tid, stable chronic mcfp use, GDR not recommended. * Iron deficiency anemia - Ferrous sulfate 325mg bid, Vitamin C 500ng daily. * Hypertension - Coreg 12.5mg bid, Lasix 20mg daily. * Vitamin D deficiency - D3 25mcg daily. * Hyperlipidemia - Zetia 10mg daily. * Folate deficiency - Folic acid 1mg daily. * Allergic rhinitis - Atrovent nasal spray 2 sppays nasal bid prn. * GERD - Pantoprazole 40mg daily. * Hypokalemia - KCL 20meq daily. * Hyponatremia - Sodium chloride 1gm bid.
[2023-04-09 14:00] VITALS: PULSE 74; RESP 16; O2SAT 97
[2023-04-09 14:20] VITALS: BMI 31.1
[2023-04-09] MEDS: Acetaminophen 500 MG Tablet 1000 MG PO ×2 (15:27→21:19)
[2023-04-09] MEDS: busPIRone 5 MG Tablet PO ×2 (15:27→21:18)
[2023-04-09] MEDS: Aspirin E.C. 81 MG Tablet PO (16:42)
[2023-04-09] MEDS: Ferrous Sulfate 325 MG Tablet PO (16:42)
[2023-04-09] MEDS: Senna/Docusate Sodium 1 Tablet 2 TABLET PO (21:18)
[2023-04-09] MEDS: Carvedilol 12.5 MG Tablet PO (21:18)
[2023-04-09] MEDS: Sodium Chloride 1 GM Tablet PO (21:19)
[2023-04-09 21:27] VITALS: BP 149/53; PULSE 76
[2023-04-10 05:54] LABS: Absolute Neutrophil Count 4.9 X10^3/uL (2.0-7.7); Basophil# 0.04 X10^3/uL; Basophil% 0.5 % (0-1); Eosinophils% 2.7 % (0-5); Hematocrit 24.6 % (37-47); Hemoglobin 7.8 g/dL (12.0-15.0); Lymphocyte % 18.7 % (19-41); Mean Corp Hgb Conc 31.7 g/dL (32-36); Mean Corpuscular Hgb 29.8 pg (27.0-32.0); Mean Corpuscular Volume 93.9 fL (81-99); Mean Platelet Vol. 8.9 fl (6.2-12.0); Monocyte# 0.91 X10^3/uL; Monocyte% 12.1 % (0-10); NRBC Flagged by Analyzer 0 % (0-5); Neutrophil # 4.92 X10^3/uL (2.7-7.7); Neutrophil % 65.7 % (47-70); Platelet Count 315 K/mm3 (150-450); RBC Distribution Width CV 13.9 % (11.6-14.6); RBC Distribution Width SD 47.8 fl (35.1-43.9); Red Blood Count 2.62 M/mm3 (4.2-5.4); White Blood Count 7.5 K/mm3 (4.4-11.0)
[2023-04-10] MEDS: busPIRone 5 MG Tablet PO ×3 (06:10→21:40)
[2023-04-10] MEDS: Acetaminophen 500 MG Tablet 1000 MG PO ×3 (06:10→21:41)
[2023-04-10 06:22] LABS: Anion Gap 4 (5-15); BUN 11 mg/dL (7-18); BUN/Creat Ratio 20.8 RATIO (10-20); Calcium,Total 8.1 mg/dL (8.5-10.1); Chloride 102 mmol/L (98-107); Creatinine, Serum 0.53 mg/dL (0.55-1.02); EST Glomerular Filtration Rate 119 mL/min (>60); Est Glom Filt Rate - Afr Amer 144 mL/min (>60); Estimated Creatinine Clearance 50.41 ml/min; Glucose 93 mg/dL (74-106); Potassium 4.2 mmol/L (3.5-5.1); Sodium Level 132 mmol/L (136-145)
[2023-04-10 09:33] VITALS: BP 136/63; PULSE 70; RESP 16; TEMP 36.2; O2SAT 97
[2023-04-10] MEDS: Potassium Chloride Oral Tablet 20 MEQ PO (09:36)
[2023-04-10] MEDS: Folic Acid 1 MG Tablet PO (09:36)
[2023-04-10] MEDS: Aspirin E.C. 81 MG Tablet PO ×2 (09:36→16:55)
[2023-04-10] MEDS: Cholecalciferol (VIT D3) 25 MCG TABLET (1,000 UNITS) PO (09:37)
[2023-04-10] MEDS: Ascorbic Acid 500 MG Tablet PO (09:37)
[2023-04-10] MEDS: Carvedilol 12.5 MG Tablet PO ×2 (09:38→21:41)
[2023-04-10] MEDS: Furosemide 20 MG Tablet PO (09:38)
[2023-04-10] MEDS: Sodium Chloride 1 GM Tablet PO ×2 (09:39→21:41)
[2023-04-10] MEDS: Ezetimibe 10 MG Tablet PO (09:39)
[2023-04-10] MEDS: Pantoprazole Sodium 40 MG Tablet PO (09:39)
--- NOTE | 2023-04-10 09:56 | PCM.PN.DRR ---
Documented by User: Abdon Quinones 04/10/23 10:21 TCU RX Drug Regimen Review Subjective/Objective Subjective/Objective: Subjective: 78 year old female with below past medical history hospitalized for right total knee arthroplasty 04/05/[address] Adorno, postoperative course complicated by syncope, hyponatremia, admitted to TCU with debility, here for rehabilitation, strengthening, prior to discharge home alone. Objective: Allergies amlodipine Adverse Reaction (Intermediate, Verified 03/28/23 15:04) swelling [id number]-DfU Reductase Inhibitor [Gbcbvpx-Fow-Qfr Reductase Inhibitor] Adverse Reaction (Verified 03/28/23 15:04) leg muscle weakness Current Medications Generic Name Dose Route Start Last Admin Trade Name Freq PRN Reason Stop Dose Admin Acetaminophen 1,000 mg 04/09/23 14:00 04/10/23 06:10 Acetaminophen 500 Mg Tablet PO 04/16/23 14:01 1,000 mg Q8H KRISH Administration Alprazolam 0.5 mg 04/09/23 13:04 Alprazolam 0.5 Mg Tablet PO 04/11/23 13:05 DAILY PRN PRN anxiety Ascorbic Acid 500 mg 04/10/23 08:00 04/10/23 09:37 Ascorbic Acid 500 Mg Tablet PO 500 mg DAILYCM KRISH Administration Aspirin 81 mg 04/09/23 17:00 04/10/23 09:36 Aspirin E.C. 81 Mg Tablet PO 04/23/23 17:01 81 mg BIDCM KRISH Administration Buspirone HCl 5 mg 04/09/23 14:00 04/10/23 06:10 Buspirone 5 Mg Tablet PO 5 mg TID KRISH Administration Carvedilol 12.5 mg 04/09/23 22:00 04/10/23 09:38 Carvedilol 12.5 Mg Tablet PO 12.5 mg BID KRISH Administration Protocol Cholecalciferol 25 mcg 04/10/23 08:00 04/10/23 09:37 Cholecalciferol (Vit D3) 25 Mcg Tablet (1,000 Units) PO 25 mcg DAILYCM KRISH Administration Ezetimibe 10 mg 04/10/23 10:00 04/10/23 09:39 Ezetimibe 10 Mg Tablet PO 10 mg DAILY KRISH Administration Ferrous Sulfate 325 mg 04/09/23 17:00 04/09/23 16:42 Ferrous Sulfate 325 Mg Tablet PO 325 mg BID@1200,1700 KRISH Administration Folic Acid 1 mg 04/10/23 08:00 04/10/23 09:36 Folic Acid 1 Mg Tablet PO 1 mg DAILYCM KRISH Administration Furosemide 20 mg 04/10/23 10:00 04/10/23 09:38 Furosemide 20 Mg Tablet PO 20 mg DAILY KRISH Administration Protocol Ipratropium Sultan 2 spray 04/09/23 13:04 Ipratropium [place] 0.06% Nasal [place] NASAL BID PRN PRN allergies Magnesium Citrate 300 ml 04/09/23 13:46 Magnesium Citrate 300 Ml PO DAILY PRN CONSTIPATION Oxycodone HCl 5 mg 04/09/23 13:41 Oxycodone 5 Mg Tablet PO Q4H PRN PRN Pain Score 6-10 Pantoprazole Sodium 40 mg 04/10/23 10:00 04/10/23 09:39 Pantoprazole Sodium 40 Mg Tablet PO 40 mg DAILY KRISH Administration Polyethylene Glycol 17 gm 04/10/23 10:00 04/10/23 09:39 Polyethylene Glycol 3350 17 Gm Packet PO Not Given DAILY KRISH Potassium Chloride 20 meq 04/10/23 08:00 04/10/23 09:36 Potassium Chloride Oral Tablet 20 Meq PO 20 meq DAILYCM KRISH Administration Senna/Docusate Sodium 2 tablet 04/09/23 22:00 04/10/23 09:39 Senna/Docusate Sodium 1 Tablet PO Not Given BID KRISH Sodium Chloride 1 gm 04/09/23 22:00 04/10/23 09:39 Sodium Chloride 1 Gm Tablet PO 1 gm BID KRISH Administration Tuberculin PPD 0.1 ml 04/17/23 10:00 Tuberculin,Purif.Prot.Deriv. 50 Tu/Ml Vial ID 04/17/23 10:01 X1 ONE Tuberculin PPD 0.1 ml 04/10/23 10:00 Tuberculin,Purif.Prot.Deriv. 50 Tu/Ml Vial ID 04/10/23 10:01 X1 ONE Problem List (Updated 04/09/23 @ 13:[address] Sarabjit Tam MD) Anxiety (Acute) Hypokalemia (Acute) GERD (gastroesophageal reflux disease) (Acute) Atrophic vaginitis (Acute) Hyponatremia (Acute) Hypertension (Chronic) Status post total right knee replacement (Acute) Osteoarthritis of right knee (Acute) Debility (Acute) Syncope (Acute) HLD (hyperlipidemia) (Chronic) Vital Signs Temp Pulse Resp BP Pulse Ox O2 Del Method 97.2 F L 70 16 136/63 H 97 Room Air 04/10/23 09:33 04/10/23 09:33 04/10/23 09:33 04/10/23 09:33 04/10/23 09:33 04/10/23 09:33 Oxygen Delivery Method Room Air Weight: 69.995 kg Body Mass Index (BMI) 31.1 Sodium 132 mmol/L (136-145) L 04/10/23 05:47 Potassium 4.2 mmol/L (3.5-5.1) 04/10/23 05:47 Chloride 102 mmol/L (98-107) 04/10/23 05:47 Carbon Dioxide 26.0 mmol/L (21.0-32.0) 04/10/23 05:47 Anion Gap 4 (5-15) L 04/10/23 05:47 BUN 11 mg/dL (7-18) 04/10/23 05:47 Creatinine 0.53 mg/dL (0.55-1.02) L 04/10/23 05:47 Est GFR (MDRD) Af Amer 144 mL/min (>60) 04/10/23 05:47 Est GFR (MDRD) Non-Af 119 mL/min (>60) 04/10/23 05:47 BUN/Creatinine Ratio 20.8 RATIO (10-20) H 04/10/23 05:47 Glucose 93 mg/dL (74-106) 04/10/23 05:47 Assessment/Plan: 1. Pain: acetaminophen 1000 mg PO Q8H, oxycodone 5 mg Po Q4H PRN pain 6-10. The patient has not required any PRN oxycodone doses yet. Please continue to monitor pain level, PRN medication usage, LFTs (AST/ALT = 17/21 on 07/12/22), for drowsiness/dizziness, syncope/ataxia/falls (oxycodone Beer's criteria), and for constipation. 2. Bowel: polyethylene glycol 17 grams PO daily, senna/docusate 2 tablets PO BID, magnesium citrate 300 mL PO daily PRN constipation. The patient has not required any PRN doses of magnesium citrate to date, but also does not have a documented bowel movement yet this admission. Please continue to monitor for bowel movements, PRN medication usage, diarrhea and constipation. As the patient has not had a bowel movement documented yet this admission, please consider administering PRN magnesium citrate if clinically indicated. 3. DVT prophylaxis: aspirin 81 mg PO BID through 04/23/23. Please continue to monitor for s/s of lower extremity DVT including warmth/pain/erythema/swelling of lower extremity, as well as for bleeding, GI distress that could indicate a GI ulcer, hemoglobin levels (Hgb = 7.8 g/dL on 04/10/23), and platelet counts (PLT = 315 K/mm3 on 04/10/23). If the patient experiences GI distress, please consider administering aspirin with food. 4. Hypertension: carvedilol 12.5 mg PO BID, furosemide 20 mg PO daily. Please continue to monitor blood pressure (recent range: 136-155/53-63 mmHg), heart rate (recent range: 69-76 beats/min), renal function (serum creatinine = 0.53 mg/dL on CrCl ~ 50 mL/min on 04/10/23), potassium levels (K = 4.2 mmol/L on 04/10/23), sodium level (Na = 132 mmol/L on 04/10/23), calcium levels (Ca = 8.1 mg/dL on 04/10/23), for signs of dehydration, and for fatigue. The patients blood pressures have been consistently elevated this admission with systolic blood pressures all > 130 mmHg. Please consider increasing carvedilol to 25 mg PO BID, or adding an additional agent such as hydralazine to help control the patients blood pressures. 5. Hyperlipidemia: ezetimibe 10 mg PO daily. Please continue to monitor lipid levels (cholesterol = 202 mg/dL with LDL = 123 mg/dL on 08/25/22), LFTs (AST/ALT = 17/21 on 07/12/22), and for myalgias. 5. Iron deficiency anemia: ferrous sulfate 325 mg PO BID, vitamin C 500 mg PO daily. Please continue to monitor iron levels (iron = 58 ug/dL on 03/02/20, ferritin = 86 ng/mL on 03/02/20), hemoglobin levels (Hgb = 7.8 g/dL on 04/10/23), for constipation, kidney stones, and for fatigue. The patient does not have a ferritin or iron level for 3 years, please consider ordering an iron level to assess for repletion status. 6. Vitamin D deficiency: cholecalciferol 25 mcg PO daily. Please continue to monitor for s/s of vitamin D deficiency, as well as vitamin D levels (vitamin D = 31.0 ng/dL on 07/12/22). 7. Hypokalemia: potassium chloride 20 mEq PO daily with a meal. Please continue to monitor for GI distress with potassium chloride administration, and potassium levels (K = 4.2 mmol/L on 04/10/23). If GI distress occurs with potassium chloride administration, please ensure that potassium chloride is given with food. 8. GERD: pantoprazole 40 mg PO daily. Please continue to monitor for s/s of GERD, for diarrhea that could indication clostridium difficile infection, and for s/s of bone resorption such as fracture. 9. Folate deficiency: folic acid 1 mg PO daily. Please continue to monitor for s/s of folic acid deficiency, and folate levels (folate = 12.9 ng/mL on 12/09/19). 10. Hyponatremia: sodium chloride 1 gm tablet PO BID. Please continue to monitor sodium levels (Na = 132 mmol/L on 04/10/23), and for s/s of hyponatremia. 11. Allergic rhinitis: ipratropium bromide nasal spray 2 sprays in each nostril BID PRN allergies. The patient has not used any PRN doses of ipratropium nasal spray so far this admission. Please continue to monitor for PRN medication usage and allergy symptoms. Assessment/Plan for indications treated with psychotropic medications: 1. Anxiety: alprazolam 0.5 mg PO daily PRN anxiety, buspirone 5 mg PO TID. Please see provider notes regarding stable long-term therapy GDR not recommended. The patient has not used any PRN alprazolam doses to date. Please continue to monitor for PRN medication usage, anxiety levels, drowsiness/sedation, falls/syncope, and for s/s of serotonin syndrome. Medical chart and medication regimen reviewed. The following medication irregularities or issues were identified: 1. Hypertension: carvedilol 12.5 mg PO BID, furosemide 20 mg PO daily. The patients blood pressures have been consistently elevated this admission with systolic blood pressures all > 130 mmHg. Please consider increasing carvedilol to 25 mg PO BID, or adding an additional agent such as hydralazine to help control the patients blood pressures. 2. Iron deficiency anemia: ferrous sulfate 325 mg PO BID, vitamin C 500 mg PO daily. The patient does not have a ferritin or iron level for 3 years, please consider ordering an iron level to assess for repletion status. Date Date of Note:: 04/10/23 Documented by User: Dr. Sarabjit Tam MD 04/10/23 11:26 TCU RX Drug Regimen Review Provider Comments Provider responsibility Provider Comments to Recommendations by Pharmacy: Agree
[2023-04-10] MEDS: Tuberculin,Purif.prot.deriv. 50 TU/ML Vial 0.1 ML ID (10:32)
[2023-04-10] MEDS: oxyCODONE 5 MG Tablet PO (10:32)
[2023-04-10] MEDS: Ferrous Sulfate 325 MG Tablet PO ×2 (13:37→16:55)
--- NOTE | 2023-04-10 13:39 | NURSING ---
Right knee slightly swollen. No signs of infection/no redness/ no drainage from incision/area is not warm to the touch. Wound appears to be healing well. RN encouraged polar care to reduce some swelling. Will monitor.
--- NOTE | 2023-04-10 16:43 | NURSING ---
hgb 7.8. Dr. Tam made aware. Order for repeat H&H tomorrow morning.
[2023-04-10] MEDS: Senna/Docusate Sodium 1 Tablet 2 TABLET PO (21:41)
[2023-04-10 21:42] VITALS: BP 155/55; PULSE 72
[2023-04-11] MEDS: oxyCODONE 5 MG Tablet PO (03:47)
[2023-04-11 05:28] LABS: Hematocrit 24.2 % (37-47); Hemoglobin 7.9 g/dL (12.0-15.0)
[2023-04-11] MEDS: busPIRone 5 MG Tablet PO ×3 (05:29→21:10)
[2023-04-11] MEDS: Acetaminophen 500 MG Tablet 1000 MG PO ×3 (05:29→21:10)
[2023-04-11] MEDS: Furosemide 20 MG Tablet PO (08:37)
[2023-04-11] MEDS: Ascorbic Acid 500 MG Tablet PO (08:37)
[2023-04-11] MEDS: Senna/Docusate Sodium 1 Tablet 2 TABLET PO ×2 (08:37→21:10)
[2023-04-11] MEDS: Aspirin E.C. 81 MG Tablet PO ×2 (08:38→17:28)
[2023-04-11] MEDS: Potassium Chloride Oral Tablet 20 MEQ PO (08:38)
[2023-04-11] MEDS: Carvedilol 12.5 MG Tablet PO ×2 (08:38→21:10)
[2023-04-11] MEDS: Folic Acid 1 MG Tablet PO (08:38)
[2023-04-11] MEDS: Pantoprazole Sodium 40 MG Tablet PO (08:38)
[2023-04-11] MEDS: Ezetimibe 10 MG Tablet PO (08:38)
[2023-04-11] MEDS: Sodium Chloride 1 GM Tablet PO ×2 (08:38→21:10)
[2023-04-11] MEDS: Cholecalciferol (VIT D3) 25 MCG TABLET (1,000 UNITS) PO (08:38)
[2023-04-11 08:44] VITALS: BP 136/51; PULSE 70
[2023-04-11 10:41] VITALS: BMI 30.8
--- NOTE | 2023-04-11 11:31 | CASEMGMT ---
Social Work Met with patient to complete initial assessment. Introduced self and role. Verified/updated contacts. Discussed code status and pt confirms DNR-CCA, no intubation. Pt agreed to have APRIL provide copies of advanced directives. Educated to [facility] insurance with NRD 04/14 and continued stay is not guaranteed with each review. Pt's goal is to return home with granddaughter. SW will continue to follow for DC planning. Lilliam Leiva, FIELD CARE COORDINATOR RECEPTIONIST/TELEPHONE OPERATOR
[2023-04-11] MEDS: Ferrous Sulfate 325 MG Tablet PO ×2 (11:51→17:28)
[2023-04-11 14:40] VITALS: BP 144/61; PULSE 70; RESP 16; TEMP 35.9; O2SAT 98
--- NOTE | 2023-04-11 16:18 | CHAPLAIN ---
Type of Pastoral Visit _x__ Initial Visit ___ Follow-up Visit ___ On-call Visit ___ General Patient Visit ___ Spiritual Assessment ___ Family Conference ___ Bereavement ___ Rapid Response ___ Code Blue ___ Other (describe below) Pastoral Care Referral From _x__ Patient ___ Family ___ Nurse ___ Physician ___ Supervisor Capacitor Processing ___ Technical Services Analyst ___ Other (describe below) Sacrament/Intervention _x__ Active listening ___ Anointing ___ Mandaen ___ Bereavement ___ Communion ___ Leeann exploration ___ ___ Life review _x__ Prayer ___ Reconciliation ___ Sacrament of Sick _x__ Supportive presence ___ Wedding ___ Other (describe below) Pastoral Comments patient is welcoming and speaks of her recent transfer to [facility]; pt admits that today I am just a bit groggy like I can't wake up fully; pt identifies self as a Confucianist and welcomes prayer for support; offer of ongoing support given as desired
[2023-04-11 21:03] VITALS: BP 153/52; PULSE 77; RESP 18; TEMP 36.6; O2SAT 97
[2023-04-12] MEDS: Acetaminophen 500 MG Tablet 1000 MG PO ×3 (05:36→20:42)
[2023-04-12] MEDS: busPIRone 5 MG Tablet PO ×3 (05:36→20:42)
[2023-04-12 05:51] LABS: Mucous, Urine 0 SEEN /hpf (<or=2+)
[2023-04-12 06:12] LABS: Color, Urine Yellow (Yellow); Glucose, Dipstick Normal (Normal); Ketone-Dipstick Negative (Negative); Leukocyte Esterase-Dipstick 500 /ul (Negative); Nitrite-Dipstick Positive (Negative); Occult Blood-Urine 10 /ul (Negative); Protein-Dipstick 15 mg/dl (Negative); Urine Bilirubin Dipstick Negative (Negative); Urine Clarity Sl. Cloudy (Clear); Urine Urobilinogen Normal (Normal); Urine pH 6.5 (5.0 - 8.0)
[2023-04-12 06:19] LABS: Bacteria 3+ /hpf (None Seen); Red Blood Cells-Urine 0-5 SEEN /hpf (0-5); Renal Epithelial Cells 0-5 SEEN /hpf (0-5); Squamous Epithelial Cells - UA 0-5 SEEN /hpf (5-10); Transitional Epithelial - Ur 0-5 SEEN /hpf (0-5); White Blood Cells >100 SEEN /hpf (0-5)
[2023-04-12] MEDS: Carvedilol 12.5 MG Tablet PO ×2 (08:39→20:41)
[2023-04-12] MEDS: Pantoprazole Sodium 40 MG Tablet PO (08:39)
[2023-04-12] MEDS: Ezetimibe 10 MG Tablet PO (08:39)
[2023-04-12] MEDS: Potassium Chloride Oral Tablet 20 MEQ PO (08:39)
[2023-04-12] MEDS: Aspirin E.C. 81 MG Tablet PO ×2 (08:39→17:00)
[2023-04-12] MEDS: Cholecalciferol (VIT D3) 25 MCG TABLET (1,000 UNITS) PO (08:39)
[2023-04-12] MEDS: Furosemide 20 MG Tablet PO (08:39)
[2023-04-12] MEDS: Folic Acid 1 MG Tablet PO (08:39)
[2023-04-12] MEDS: Ascorbic Acid 500 MG Tablet PO (08:39)
[2023-04-12] MEDS: Sodium Chloride 1 GM Tablet PO ×2 (08:39→20:42)
[2023-04-12 08:43] VITALS: BP 147/50; PULSE 70
[2023-04-12] MEDS: Ciprofloxacin 250 MG Tablet PO ×2 (09:41→20:42)
[2023-04-12 09:52] VITALS: BP 147/50; PULSE 70
[2023-04-12] MEDS: Ferrous Sulfate 325 MG Tablet PO ×2 (12:02→17:00)
--- NOTE | 2023-04-12 14:03 | CASEMGMT ---
Social Work IDT met with patient and niece for care plan meeting. Discussed patient's progress in PT/OT/SN. Educated to [facility] insurance with NRD 04/14 and continued stay is not guaranteed with each review. Pt lives at home with young granddaughter, who works during the day. IDT recommending pediatric FWW at [place]. Educated to HHC vs OP therapy. Pt has no concerns about DC and is requesting to DC. Pt states she has a walker already and prefers HHC. SW offered HHC list with quality and resource data but pt states she is familiar with [facility]. Niece to transport. SW phoned referral to [facility] PT/OT/SCOTT. Plan: DC home 04/14, [facility] PT/OT/SCOTT BRENDA Koenig
[2023-04-12 14:55] VITALS: BP 150/67; PULSE 69; RESP 16; TEMP 36.6; O2SAT 97
--- NOTE | 2023-04-12 20:04 | PCM.DC.SUM ---
Providers Date of Admission: 04/09/23 Primary Care Physician: Dr. Aracely Blanc MD Reason For Visit: RT TOTAL KNE Diagnosis Discharge Diagnosis (1) Debility: Status: Acute Code(s): R53.81 - Other malaise (2) Osteoarthritis of right knee: Status: Acute Code(s): M17.11 - Unilateral primary osteoarthritis, right knee (3) Status post total right knee replacement: Status: Acute Code(s): Z96.651 - Presence of right artificial knee joint (4) Syncope: Status: Acute Code(s): R55 - Syncope and collapse (5) Hypertension: Status: Chronic Code(s): I10 - Essential (primary) hypertension (6) Hyponatremia: Status: Acute Code(s): E87.1 - Hypo-osmolality and hyponatremia (7) Atrophic vaginitis: Status: Acute Code(s): N95.2 - Postmenopausal atrophic vaginitis (8) HLD (hyperlipidemia): Status: Chronic Code(s): E78.5 - Hyperlipidemia, unspecified Qualifiers: Hyperlipidemia type: unspecified Qualified Code(s): E78.5 - Hyperlipidemia, unspecified (9) GERD (gastroesophageal reflux disease): Status: Acute Code(s): K21.9 - Gastro-esophageal reflux disease without esophagitis (10) Hypokalemia: Status: Acute Code(s): E87.6 - Hypokalemia (11) Anxiety: Status: Acute Code(s): F41.9 - Anxiety disorder, unspecified Plan 78 year old female with below past medical history hospitalized for right total knee arthroplasty 04/05/[address] Adorno, postoperative course complicated by syncope, hyponatremia, admitted to TCU with debility, here for rehabilitation, strengthening, prior to discharge home alone. Debility - PT/OT. Pain - Tylenol 1000mg q8, Oxycodone 5mg q4h prn pain (6-10). Bowel - Miralax 17gm daily, senna/colace 2 tablets bid, Magnesium citrate 300ml daily prn. Adult immunization - Administer pneumonia vaccine, covid19 vaccine, flu vaccine as appropriate. DVT prophylaxis - Aspirin 81mg po bid thru 04/23/2023. Anxiety - Xanax 0.5mg daily prn, Buspar 5mg tid, stable chronic residential use, GDR not recommended. Iron deficiency anemia - Ferrous sulfate 325mg bid, Vitamin C 500ng daily. Hypertension - Coreg 12.5mg bid, Lasix 20mg daily. Vitamin D deficiency - D3 25mcg daily. Hyperlipidemia - Zetia 10mg daily. Folate deficiency - Folic acid 1mg daily. Allergic rhinitis - Atrovent nasal spray 2 sppays nasal bid prn. GERD - Pantoprazole 40mg daily. Hypokalemia - KCL 20meq daily. Hyponatremia - Sodium chloride 1gm bid. Medications at Discharge Home Medications sodium chloride 1,000 mg soluble tablet 1,000 mg PO BID supplement 07/12/22 furosemide 20 mg tablet 20 mg PO DAILY water pill #30 tabs 08/17/22 carvedilol 25 mg tablet 12.5 mg (1/2 x 25 mg) PO BID bp #180 tabs 08/24/22 ezetimibe 10 mg tablet 10 mg PO DAILY cholesterol #30 tabs 09/19/22 pantoprazole 40 mg tablet,delayed release 40 mg PO DAILY acid reflux #90 tabs 03/22/23 potassium chloride 20 mEq tablet,extended release See Rx Instructions .Route .COMPLEX potassium #90 tabs 04/03/23 buspirone 5 mg tablet 5 mg PO TID ANXIETY 04/09/23 cholecalciferol (vitamin D3) 25 mcg (1,000 unit) capsule 25 mcg PO DAILY vit D3 04/09/23 folic acid 1 mg tablet 1 mg PO DAILY supp 04/09/23 ipratropium bromide 42 mcg (0.06 %) nasal spray 2 spray intranasal BID PRN PRN allergies 04/09/23 acetaminophen 500 mg tablet 1,000 mg (2 x 500 mg) PO Q8H #0 tabs 04/12/23 ascorbic acid (vitamin C) 500 mg tablet 500 mg PO DAILYCM 30 days #30 tabs 04/12/23 aspirin 81 mg tablet,delayed release 81 mg PO BIDCM 9 days #0 tabs 04/12/23 ciprofloxacin HCl 250 mg tablet 250 mg PO BID 5 days #10 tabs 04/12/23 ferrous sulfate 325 mg (65 mg iron) tablet (FeroSul) 325 mg PO BID@1200,1700 30 days #60 tabs 04/12/23 oxycodone 5 mg tablet 5 mg PO Q4H PRN PRN Pain Score 6-10 7 days #42 tabs 04/12/23 sennosides 8.6 mg-docusate sodium 50 mg tablet (Stool Softener-Stimulant Laxative) 2 tab PO BID 30 days #120 tabs 04/12/23 Hospital Course Operations total knee replacement (Right.) Procedures None Summary of Care Provided Minutes Spent on Discharge: 35 Hospital Course: 78 year old female with below past medical history hospitalized for right total knee arthroplasty 04/05/[address] Adorno, postoperative course complicated by syncope, hyponatremia, admitted to TCU with debility, here for rehabilitation, strengthening, prior to discharge home alone. 04/12/2023 Urinalysis consistent with UTI, Urine culture pending, Rx Cipro 250mg bid x 7 days. Discharge home with granddaughter 04/14/2023, [facility] PT/OT/SCOTT. Physical Exam Const alert General Appearance: cooperative HEENT normocephalic Eyes PERRL and EOMs intact bilaterally Neck supple, no JVD and no carotid bruits Resp normal respiratory effort, normal air movement and clear to auscultation bilaterally Cardio regular rate and regular rhythm GI normal to inspection, nondistended, normoactive bowel sounds, non-tender and non-distended Extremity normal capillary refill General Extremity: Negative for edema Skin no rashes or lesions noted General Skin Exam: no breakdown Psych affect normal Appearance: appropriate Weight / BMI Weight Weight: 69.173 kg Body Mass Index (BMI) 30.8 ABG / Lab / Microbiology Data 04/11/23 05:10 04/10/23 05:47 Laboratory: Laboratory Results - last 24 hr 04/12/23 03:30: Urine Color Yellow, Urine Clarity Sl. Cloudy, Urine pH 6.5, Ur Specific [place] 1.010, Urine Protein 15 H, Urine Glucose (UA) Normal, Urine Ketones Negative, Urine Occult Blood 10 H, Urine Nitrite Positive H, Urine Bilirubin Negative, Urine Urobilinogen Normal, Ur Leukocyte Esterase 500 H, Urine RBC 0-5 SEEN, Urine WBC >100 SEEN, Ur Squamous Epith Cells 0-5 SEEN, Ur Transition Epith Cell 0-5 SEEN, Ur Renal Epithelial Cell 0-5 SEEN, Urine Bacteria 3+, Urine Mucus 0 SEEN Microbiology: Microbiology 04/09/23 14:10 Nasal Secretion SARS-CoV-2 Antigen (Rapid) - Final D/C Instructions Discharge Diet: No restrictions Discharge Activity: Return to Normal Activity, May Shower and Use Walker Weight Bearing Status: Weight bearing as tolerated Call your doctor if you observe: Fever of 101 or Higher, Inability to urinate, Inability to have a bowel movement, Shortness of breath, Dizziness, Fainting spells, Swelling in the ankles, Chest pain and Uncontrolled pain Additional Instructions: Discharge home with granddaughter 04/14/2023, [facility] PT/OT/SCOTT. Please Follow Up With: terence marroquin When: As scheduled. Meaningful Use Info Meaningful Use Diagnoses (Choose all that apply): None applicable Discharge Plan Admission Admit Date/Time: 04/09/23 12:15 Primary Reason for Your Visit: Debility. Attending Provider: Sarabjit Tam Chi Primary Care Provider: Aracely Blanc Instructions Additional Instructions / Restrictions: Discharge home with granddaughter 04/14/2023, [facility] PT/OT/SCOTT. Discharge Orders/Prescriptions Prescriptions: New acetaminophen 500 mg Tablet 1,000 mg PO Q8H Qty: 0 0RF ascorbic acid (vitamin C) 500 mg Tablet 500 mg PO DAILYCM 30 Days Qty: 30 0RF aspirin 81 mg Tablet,Delayed Release (Dr/Ec) 81 mg PO BIDCM 9 Days Qty: 0 0RF ferrous sulfate [FeroSul] 325 mg (65 mg iron) Tablet 325 mg PO BID@1200,1700 30 Days Qty: 60 0RF sennosides-docusate sodium [Stool Softener-Stimulant Laxat] 8.6-50 mg Tablet 2 tab PO BID 30 Days Qty: 120 0RF oxycodone 5 mg Tablet 5 mg PO Q4H PRN PRN (Reason: Pain Score 6-10) 7 Days Qty: 42 0RF ciprofloxacin HCl 250 mg Tablet 250 mg PO BID 5 Days Qty: 10 0RF Continued sodium chloride 1,000 mg tablet,soluble 1,000 mg PO BID Rx Instructions: take 2 tablets in the morning, 1 tablet in the afternoon, and 2 tablets at night. ezetimibe 10 mg tablet 10 mg PO DAILY Qty: 30 6RF furosemide 20 mg Tablet 20 mg PO DAILY Qty: 30 0RF folic acid 1 mg tablet 1 mg PO DAILY cholecalciferol (vitamin D3) 25 mcg (1,000 unit) capsule 25 mcg PO DAILY ipratropium bromide 42 mcg (0.06 %) spray,non-aerosol 2 spray INTRANASAL BID PRN PRN (Reason: allergies) Patient Comments: use 1 (ONE) [place] in the nose twice per day buspirone 5 mg tablet 5 mg PO TID carvedilol 25 mg tablet 12.5 mg PO BID Qty: 180 3RF pantoprazole 40 mg tablet,delayed release (DR/EC) 40 mg PO DAILY Qty: 90 1RF potassium chloride 20 mEq tablet extended release See Rx Instructions .ROUTE .COMPLEX Qty: 90 0RF Dose Instruction: TAKE 1 TABLET BY MOUTH ONCE DAILY Rx Instructions: TAKE 1 TABLET BY MOUTH ONCE DAILY Discontinued aspirin 81 mg tablet,delayed release (DR/EC) 81 mg PO BID.TCU docusate sodium [Colace] 100 mg capsule 100 mg PO BID.TCU sennosides-docusate sodium [Stool Softener-Stimulant Laxat] 8.6-50 mg tablet 2 tab-cap PO BID ferrous sulfate [Feosol] 325 mg (65 mg iron) tablet 325 mg PO BID magnesium hydroxide [Milk of Magnesia] 400 mg/5 mL suspension 30 ml PO DAILY PRN (Reason: bowels) oxycodone 5 mg tablet 5 mg PO Q6H PRN (Reason: pain (scale score 7-10)) polyethylene glycol 3350 [Miralax] 17 gram/dose powder 17 g PO DAILY ascorbic acid (vitamin C) 500 mg tablet 500 mg PO DAILY alprazolam [Xanax] 0.5 mg tablet 0.5 mg PO DAILY PRN PRN (Reason: anxiety) acetaminophen 500 mg tablet 1,000 mg PO Q8H Referrals / Follow Up: Aracely Blanc MD [Primary Care Provider] - Disposition Disposition (needs filled in before D/C Order can be placed): Home Health Service
[2023-04-12 20:35] VITALS: BP 145/59; PULSE 75; RESP 16
[2023-04-12] MEDS: oxyCODONE 5 MG Tablet PO (23:28)
[2023-04-13] MEDS: Acetaminophen 500 MG Tablet 1000 MG PO ×2 (05:45→21:01)
[2023-04-13] MEDS: busPIRone 5 MG Tablet PO ×3 (05:45→21:02)
[2023-04-13 05:51] LABS: Hematocrit 24.7 % (37-47); Hemoglobin 7.9 g/dL (12.0-15.0)
--- NOTE | 2023-04-13 06:58 | MDS.RN ---
Pain interview for mds dc 04/14/23 completed.
[2023-04-13 09:11] VITALS: BP 152/71; PULSE 70; RESP 16; TEMP 36.6; O2SAT 96
[2023-04-13] MEDS: Potassium Chloride Oral Tablet 20 MEQ PO (09:15)
[2023-04-13] MEDS: Folic Acid 1 MG Tablet PO (09:15)
[2023-04-13] MEDS: Aspirin E.C. 81 MG Tablet PO ×2 (09:15→16:28)
[2023-04-13] MEDS: Ascorbic Acid 500 MG Tablet PO (09:16)
[2023-04-13] MEDS: Furosemide 20 MG Tablet PO (09:16)
[2023-04-13] MEDS: Pantoprazole Sodium 40 MG Tablet PO (09:16)
[2023-04-13] MEDS: Ezetimibe 10 MG Tablet PO (09:16)
[2023-04-13] MEDS: Sodium Chloride 1 GM Tablet PO ×2 (09:16→21:02)
[2023-04-13] MEDS: Senna/Docusate Sodium 1 Tablet 2 TABLET PO ×2 (09:16→21:02)
[2023-04-13] MEDS: Carvedilol 12.5 MG Tablet PO ×2 (09:16→21:02)
[2023-04-13] MEDS: Ciprofloxacin 250 MG Tablet PO ×2 (09:16→21:02)
[2023-04-13] MEDS: Cholecalciferol (VIT D3) 25 MCG TABLET (1,000 UNITS) PO (09:16)
[2023-04-13] MEDS: oxyCODONE 5 MG Tablet PO (12:26)
[2023-04-13] MEDS: Ferrous Sulfate 325 MG Tablet PO ×2 (12:27→16:28)
--- NOTE | 2023-04-13 12:34 | CASEMGMT ---
Social Work BIMS () and PHQ-9 (11/26) completed for MDS assessment. china Leiva MSW INFORMATION RESOURCE CONSULTANT
[2023-04-13 21:00] VITALS: BP 155/56; PULSE 72; RESP 16; O2SAT 96
[2023-04-14] MEDS: Acetaminophen 500 MG Tablet 1000 MG PO (06:16)
[2023-04-14] MEDS: busPIRone 5 MG Tablet PO (06:16)
[2023-04-14 06:24] VITALS: PULSE 65; RESP 14; O2SAT 95
[2023-04-14] MEDS: Aspirin E.C. 81 MG Tablet PO (08:31)
[2023-04-14] MEDS: Sodium Chloride 1 GM Tablet PO (08:32)
[2023-04-14] MEDS: Folic Acid 1 MG Tablet PO (08:32)
[2023-04-14] MEDS: Ezetimibe 10 MG Tablet PO (08:32)
[2023-04-14] MEDS: Potassium Chloride Oral Tablet 20 MEQ PO (08:32)
[2023-04-14] MEDS: Ascorbic Acid 500 MG Tablet PO (08:32)
[2023-04-14] MEDS: Senna/Docusate Sodium 1 Tablet 2 TABLET PO (08:32)
[2023-04-14] MEDS: Ciprofloxacin 250 MG Tablet PO (08:32)
[2023-04-14] MEDS: Cholecalciferol (VIT D3) 25 MCG TABLET (1,000 UNITS) PO (08:32)
[2023-04-14] MEDS: Pantoprazole Sodium 40 MG Tablet PO (08:33)
[2023-04-14] MEDS: Furosemide 20 MG Tablet PO (08:33)
[2023-04-14] MEDS: Carvedilol 12.5 MG Tablet PO (08:34)
[2023-04-14 08:37] VITALS: BP 149/59; PULSE 69; RESP 16; TEMP 36.6; O2SAT 97
== END 2023-04-14 10:01 | disposition home health service (06) | DRG 560 ==
PROVIDERS: Admitting Provider Family Medicine Geriatric Medicine; PCP Internal Medicine; Visit Provider Family Medicine Geriatric Medicine
DX: Z47.1 Aftercare following joint replacement surgery (principal); E87.1 Hypo-osmolality and hyponatremia; N39.0 Urinary tract infection, site not specified; D50.9 Iron deficiency anemia, unspecified; N18.9 Chronic kidney disease, unspecified; I12.9 Hypertensive chronic kidney disease with stage 1 through stage 4 chronic kidney disease, or unspecified chronic kidney disease; F41.8 Other specified anxiety disorders; K21.9 Gastro-esophageal reflux disease without esophagitis; E55.9 Vitamin D deficiency, unspecified; M17.11 Unilateral primary osteoarthritis, right knee; I25.10 Atherosclerotic heart disease of native coronary artery without angina pectoris; E78.5 Hyperlipidemia, unspecified; J30.9 Allergic rhinitis, unspecified; E87.6 Hypokalemia; Z79.82 Long term (current) use of aspirin; Z96.651 Presence of right artificial knee joint; Z79.899 Other long term (current) drug therapy; Z86.16 Personal history of COVID-19
CPT/HCPCS: 36415; 80048; 81001; 85014; 85018; 85025; 87077; 87086; 87088; 87186; 87811; 97110; 97116; 97162; 97166; 97530; 97535; 97802

== ENCOUNTER → 2023-04-19 | Outpatient (CLI) | payer MEDICARE, SELFPAY ==
[2021-06-28 09:37] VITALS: BMI 34.1
[2023-04-19 17:15] LABS: Hematocrit 31.7 % (37-47); Hemoglobin 9.9 g/dL (12.0-15.0); Mean Corp Hgb Conc 31.2 g/dL (32-36); Mean Corpuscular Hgb 30.2 pg (27.0-32.0); Mean Corpuscular Volume 96.6 fL (81-99); Mean Platelet Vol. 8.7 fl (6.2-12.0); Platelet Count 611 K/mm3 (150-450); RBC Distribution Width CV 14.9 % (11.6-14.6); RBC Distribution Width SD 52.5 fl (35.1-43.9); Red Blood Count 3.28 M/mm3 (4.2-5.4); White Blood Count 7.2 K/mm3 (4.4-11.0)
[2023-04-19 17:23] LABS: Anion Gap 4 (5-15); BUN 15 mg/dL (7-18); Calcium,Total 8.9 mg/dL (8.5-10.1); Chloride 99 mmol/L (98-107); Creatinine, Serum 0.71 mg/dL (0.55-1.02); EST Glomerular Filtration Rate 84 mL/min (>60); Est Glom Filt Rate - Afr Amer 102 mL/min (>60); Glucose 104 mg/dL (74-106); Potassium 4.3 mmol/L (3.5-5.1); Sodium Level 130 mmol/L (136-145)
== END | disposition home or self-care (01) ==
LOC: BIMLAB 15:52
PROVIDERS: PCP Internal Medicine; Visit Provider Physician Assistant Surgical
DX: Z47.1 Aftercare following joint replacement surgery (principal); I10 Essential (primary) hypertension
CPT/HCPCS: 36415; 80048; 85027

== ENCOUNTER → 2023-10-05 | Outpatient (CLI) | payer MEDICARE, SELFPAY ==
[2021-06-28 09:37] VITALS: BMI 34.1
[2023-10-05 16:40] LABS: Hematocrit 34.2 % (37-47); Hemoglobin 11.2 g/dL (12.0-15.0); Mean Corp Hgb Conc 32.7 g/dL (32-36); Mean Corpuscular Hgb 30.2 pg (27.0-32.0); Mean Corpuscular Volume 92.2 fL (81-99); Mean Platelet Vol. 9.9 fl (6.2-12.0); Platelet Count 283 K/mm3 (150-450); RBC Distribution Width CV 13.5 % (11.6-14.6); RBC Distribution Width SD 46.2 fl (35.1-43.9); Red Blood Count 3.71 M/mm3 (4.2-5.4); White Blood Count 4.8 K/mm3 (4.4-11.0)
[2023-10-05 16:57] LABS: Vitamin D,25 Hydroxy 33.2 ng/mL
[2023-10-05 16:58] LABS: Protein, Urine (Random) 8.7 mg/dL (<11.9); Protein:Creat Ratio 205 mg/g CRE (0-200)
[2023-10-05 17:02] LABS: ALB/GLOB Ratio 0.9 RATIO (0.9-2.4); AST(SGOT) 18 U/L (15-37); Alanine Aminotransfer ALT/SGPT 16 U/L (13-56); Albumin, Serum 3.4 g/dL (3.2-5.0); Alkaline Phosphatase 97 U/L (45-117); Anion Gap 6 (5-15); BUN 14 mg/dL (7-18); BUN/Creat Ratio 19.9 RATIO (10-20); Calcium,Total 8.7 mg/dL (8.5-10.1); Chloride 101 mmol/L (98-107); Cholesterol 175 mg/dL (200); EST Glomerular Filtration Rate 85 mL/min (>60); Est Glom Filt Rate - Afr Amer 103 mL/min (>60); Globulin 3.7 g/dL (2.2-4.2); Glucose 87 mg/dL (74-106); High Density Lipoprotein 56 mg/dL; Potassium 4.3 mmol/L (3.5-5.1); Protein, Total 7.1 g/dL (6.4-8.2); Sodium Level 132 mmol/L (136-145); Triglycerides 121 mg/dL; Very Low Density Lipoprotein 24 mg/dL (5-40)
== END | disposition home or self-care (01) ==
LOC: BIMLAB 15:08
PROVIDERS: Physician Assistant Medical; PCP Internal Medicine; Referring Provider Internal Medicine Nephrology; Visit Provider Internal Medicine Nephrology
DX: N18.2 Chronic kidney disease, stage 2 (mild) (principal); E55.9 Vitamin D deficiency, unspecified; E78.5 Hyperlipidemia, unspecified
CPT/HCPCS: 36415; 80053; 80061; 82306; 82570; 84156; 85027

== ENCOUNTER → 2023-10-20 | Outpatient (CLI) | payer MEDICARE, SELFPAY ==
[2021-06-28 09:37] VITALS: BMI 34.1
--- NOTE | 2023-10-20 11:56 | BD_ITS ---
STUDY: DUAL ENERGY X-RAY ABSORPTIOMETRY / DXA REASON FOR EXAM: Female, 78 years old. Osteopenia follow up TECHNIQUE: Bone Mineral Density (BMD) measurements of lumbar spine and bilateral hips were obtained. COMPARISON: Comparison is made with prior study dated June 25, 2019. FINDINGS: Lumbar Spine (L1-L4): g/cm2 (0.832) / T-score (-2.0) / Z-score (0.7) Findings are suggestive of osteopenia with a moderate fracture risk. Left Femur Total: g/cm2 (0.687) / T-score (-2.1) / Z-score (-0.1) Left Femoral Neck: g/cm2 (0.536) / T-score (-2.8) / Z-score (-0.5) Right Femur Total: g/cm2 (0.635) / T-score (-2.5) / Z-score (-0.5) Right Femoral Neck: g/cm2 (0.536) / T-score (-2.8) / Z-score (-0.5) The T-Scores on the most recent prior examination were: Lumbar Spine (L1-L4): There has been worsening of bone density since the previous examination. Left Femur Total: which represents a worsening of 12.5%. Right Femur Total: which represents a worsening of 21.1%. BD/Dexa Bone Density Study IMPRESSION: The patient is considered osteoporotic as outlined below according to World Jeffry Organization (WHO) criteria with a high fracture risk. There has been worsening of bone density since the previous examination. Reference Information: The T-score is the number of standard deviations above or below the standard which is normal for young adults at their peak bone mineral density. The World Health Organization (WHO) interprets the T-scores as follows: Above -1 Normal bone density Between -1 and -2.5 Osteopenia Equal to / or below -2.5 Osteoporosis As a practical clinical guideline, osteopenia may be graded as follows: Mild -1 through -1.5 Moderate -1.6 through -2.0 Severe -2.1 through -2.4 The Z-score is the number of standard deviations above or below age-matched controls. A Z-score of less than -1.5 would be considered abnormal. References: 1. NIH Osteoporosis and Related Bone Diseases www osteo.org 2. International Society for Clinical Densitometry www iscd.org 3. National Osteoporosis Foundation www nof.org Electronically Signed: Remy Gavin MD at 10:47 EDT ,
== END | disposition home or self-care (01) ==
LOC: OPBD 11:53
PROVIDERS: PCP Internal Medicine; Referring Provider Internal Medicine; Visit Provider Internal Medicine
DX: Z78.0 Asymptomatic menopausal state (principal)
CPT/HCPCS: 77080

== ENCOUNTER 2023-10-28 04:25 | Inpatient (IN) | payer MEDICARE, SELFPAY ==
[2021-06-28 09:37] VITALS: BMI 34.1
[2023-10-28] VITALS (15 sets, daily range): BP systolic 136–254; BP diastolic 47–108; PULSE 63–87; RESP 15–18; TEMP 35.5–36.6; O2SAT 95–99; BMI 30.9; BMI 31.1
--- NOTE | 2023-10-28 04:36 | EKG12_ITS ---
Test Reason : CP Blood Pressure : / mmHG Vent. Rate : 064 BPM Atrial Rate : 064 BPM P-R Int : 180 ms QRS Dur : 082 ms QT Int : 418 ms P-R-T Axes : 090 -25 097 degrees QTc Int : 431 ms Normal sinus rhythm ST & T wave abnormality, consider lateral ischemia Abnormal ECG Confirmed by YESSI SILVER, ANNA ([id number]), photo editor CECILIA CHAO ([id number]) on 10/30/2023 9:41:16 AM Referred By: NATHALIE Confirmed By:ANNA DICKSON MD
--- NOTE | 2023-10-28 04:37 | EDS_ITS ---
HPI History of Present Illness Chief Complaint: Chest Pain Detail of Chief Complaint: Chest pain and abdominal pain Informant: patient Narrative Narrative: Patient presents with chest pain and abdominal pain that woke her up from sleep around 2 AM. Patient states the pain is in her upper abdomen and wraps around to her back. Rates it an 8 out of 10. Denies nausea or vomiting. She states that 3 days ago she had diarrhea and had an episode 2 nights ago where she woke up with severe abdominal pain but she took some antiacid and then went back to bed and woke up feeling fine. No prior abdominal surgeries. Patient does have history of several cardiac stents placed in 2019. Denies recent travel or surgery. She denies fever or cough. [facility] Medical History Anxiety and depression Atherosclerotic heart disease of [place] coronary artery without angina pectoris Chest pain CKD (chronic kidney disease) COVID-19 CVA (cerebral vascular accident) Difficulty balancing when standing Essential hypertension Fatigue Heart disease History of gastroesophageal reflux (GERD) HLD (hyperlipidemia) Hypertensive urgency Hypertensive urgency Hyponatremia Kidney disease Knee pain Near syncope Non-rheumatic mitral regurgitation PAD (peripheral artery disease) Pessary maintenance Presence of stent in coronary artery (~04/16/20) Renal artery stenosis Skin cancer SOB (shortness of breath) Syncope and collapse Syncope due to orthostatic hypotension Urinary frequency Vaginal wall prolapse Home Medications furosemide 20 mg tablet 20 mg PO DAILY water pill #30 tabs 08/17/22 [Rx Last Taken Unknown] cholecalciferol (vitamin D3) 25 mcg (1,000 unit) capsule 25 mcg PO DAILY vit D3 04/09/23 [History Last Taken Unknown] ascorbic acid (vitamin C) 500 mg tablet 500 mg PO DAILYCM 30 days #30 tabs 04/12/23 [Rx Last Taken Unknown] aspirin 81 mg tablet,delayed release 81 mg PO DAILY 04/19/23 [History Last Taken Unknown] hydralazine 25 mg tablet 25 mg PO TID 04/19/23 [History Last Taken Unknown] ezetimibe 10 mg tablet See Rx Instructions .Route .COMPLEX #30 tabs 05/12/23 [Rx Last Taken Unknown] losartan 50 mg tablet 50 mg PO BID #180 tabs 06/21/23 [Rx Last Taken Unknown] levocetirizine 5 mg tablet 5 mg PO DAILY #90 tabs 07/24/23 [Rx Last Taken Unknown] carvedilol 12.5 mg tablet 12.5 mg PO BID bp #180 tabs 08/22/23 [Rx Last Taken Unknown] pantoprazole 40 mg tablet,delayed release 40 mg PO DAILY acid reflux #90 tabs 10/02/23 [Rx Last Taken Unknown] potassium chloride 20 mEq tablet,extended release See Rx Instructions .Route .COMPLEX potassium #90 tabs 10/10/23 [Rx Last Taken 10/27/23] alendronate 70 mg tablet (Fosamax) 70 mg PO QWEEK #12 tabs 10/23/23 [Rx Last Taken Unknown] alprazolam 0.5 mg tablet (Xanax) 0.5 mg PO DAILY PRN anxiety #15 tabs 10/23/23 [Rx Last Taken Unknown] acetaminophen 500 mg tablet 1,000 mg PO Q8H PRN pain 10/28/23 [History Last Taken Unknown] buspirone 5 mg tablet 5 mg PO BID 10/28/23 [History Last Taken Unknown] estradiol 0.01% (0.1 mg/gram) vaginal cream vaginal 10/28/23 [History Last Taken Unknown] sodium chloride 1,000 mg soluble tablet 1,000 mg PO .COMPLEX supplement 10/28/23 [History Last Taken Unknown] Allergy/AdvReac Type Severity Reaction Status Date / Time amlodipine AdvReac Intermediate swelling Verified 10/28/23 04:26 [id number] Reductase AdvReac leg muscle Verified 10/28/23 04:26 Inhibitor weakness [[id number] Reductase Inhibitor] Family History Mother CAD (coronary artery disease) CVA (cerebral vascular accident) Brother CVA (cerebral vascular accident) Heart disease Kidney disease Diabetes Sister CAD (coronary artery disease) Sister Diabetes Brother Diabetes Brother CAD (coronary artery disease) Other Cancer Hypertension Surgical History H/O oral surgery History of bilateral cataract extraction History of renal stent History of right knee joint replacement Presence of coronary angioplasty implant and graft (~03/18/20) S/P skin biopsy (~08/2022) Social History (Updated 10/05/23 @ 14:[address] 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 Smoking Status: Never smoker Electronic Cigarette Use: not used alcohol intake: never substance use type: does not use caffeine: No what type of physical activity do you participate in: none seatbelt use: always do you feel safe at home: Yes additional social history: - Retired 1 adopted daughter-, drug use ROS ROS ED Review of Systems ROS Unobtainable: other Constitutional Constitutional ED: Reports lethargy; Denies chills, fever(s), sweats or weight loss Eyes Eyes: Denies blurry vision, change in vision or diplopia ENT ENT ED: Denies rhinorrhea or sore throat Cardiovascular Cardiovascular: Reports chest pain; Denies orthopnea or racing heartbeat Respiratory/Chest Respiratory/Chest: Denies cough, dyspnea, dyspnea on exertion, orthopnea or sputum Gastrointestinal Gastrointestinal: Reports abdominal pain and diarrhea; Denies nausea or vomiting Genitourinary Genitourinary ED: Denies dysuria, hematuria or urinary frequency Musculoskeletal Musculoskeletal: Denies arthralgias, back pain, myalgias or neck pain Integumentary Denies abscess, Abrasions or rash Neurologic Neurologic: Denies headache(s) or weakness Psychiatric Psychiatric: Denies anxiety, depression or suicidal thoughts Endocrine Endocrinology: Denies polydipsia, polyphagia or polyuria Hematologic/Lymphatic Hematologic/Lymphatic: Denies easy bleeding, easy bruising or lymphadenopathy Allergic/Immunologic Allergic/Immunologic ED: Denies mouth swelling, tongue swelling or urticaria EXAM Physical Exam Const Vital Signs: 10/28/23 04:26 10/28/23 04:26 10/28/23 04:31 Temperature 96 F L Temperature Source Temporal Pulse Rate 66 Respiratory Rate 17 Respiratory Effort Normal Non-Labored Blood Pressure 254/108 H Blood Pressure Mean 156 Pulse Ox 98 Oxygen Delivery Method Room Air 10/28/23 04:38 10/28/23 05:26 10/28/23 06:00 Temperature Temperature Source Pulse Rate 65 64 Respiratory Rate 16 15 Respiratory Effort Blood Pressure 238/85 H 231/85 H Blood Pressure Mean 136 133 Pulse Ox 95 95 Oxygen Delivery Method Room Air Room Air Room Air 10/28/23 06:32 10/28/23 07:08 Temperature 97.4 F L Temperature Source Oral Pulse Rate 69 87 Respiratory Rate 16 16 Respiratory Effort Blood Pressure 217/72 H 176/64 H Blood Pressure Mean 120 101 Pulse Ox 97 98 Oxygen Delivery Method Room Air Room Air Positive well nourished and well developed General Appearance ED: well developed and NAD HEENT Reports TM's clear and moist mucous membranes normocephalic and atraumatic; Negative for trauma or tenderness Tympanic Membrane ED: Yes TM's clear Eyes PERRL and EOMs intact bilaterally General Eye ED: Negative for pale conjunctiva or scleral icterus Neck no lymphadenopathy, supple and no JVD General: Negative for tenderness Chest Wall inspection of chest normal and palpation of chest normal Chest: Negative for tenderness Resp normal respiratory effort and clear to auscultation bilaterally Effort and Inspection: Negative for respiratory distress or pain with movement Auscultation: Negative for rhonchi, wheezes or diminished lung sounds Cardio regular rate, regular rhythm, S1 normal heart sound, S2 normal heart sound and no murmurs Peripheral Pulses: pulses 2+ throughout GI normal to inspection, nondistended, normoactive bowel sounds, soft to palpation, non-distended and no masses GI Narrative: Diffuse tenderness to the upper abdomen over the epigastric region and right upper quadrant with guarding. There is no rebound or rigidity. Back/Spine no CVA tenderness and no thoracic nor lumbar tenderness Extremity normal to inspection General Extremety ED: Negative for edema General Extremity: Negative for edema Neuro oriented x3, CN's II-XII intact bilaterally, no sensory deficits noted and gait normal Sensorium / Orientation: awake, alert, oriented to person, oriented to place and oriented to time Motor Exam: strength 5/5 throughout and strength abnormal Psych mental status grossly normal Skin no rashes or lesions noted and no wounds MDM MDM MDM Narrative Medical decision making narrative: Patient presents with chest and abdomen pain. In the differential would be acute coronary syndrome versus acute intra-abdominal process such as cholecystitis or bowel obstruction or bowel perforation. Patient also quite hypertensive on arrival. IV line established. She was medicated with morphine and Zofran. CBC with differential obtained for white count 4.4 with hemoglobin 12.2 and platelet count of 300. Chemistries unremarkable. Lactate normal 1.2. Troponin initially was normal at 16 and delta troponin was 29. Lipase was normal at 52. LFTs were normal. CT scan of the abdomen pelvis with IV contrast obtained read by radiology as evidence of chronic or acute on chronic ischemic colitis from the transverse colon to the sigmoid colon. Discussed case with hospitalist as well as with general surgeon on-call who will evaluate patient for admission. Patient was medicated initially with labetalol 20 mg IV which did not improve her blood pressure much and then she received hydralazine 10 mg IV. Patient has a heart score of 6. She will need cardiac rule out. Lab Data Attestation: I reviewed the patient's lab results. Labs: Laboratory Results - last 24 hr 10/28/23 10/28/23 10/28/23 04:40 05:58 06:52 WBC 4.4 RBC 4.04 L Hgb 12.2 Hct 37.5 MCV 92.8 MCH 30.2 MCHC 32.5 RDW Std Deviation 44.2 H RDW Coeff of Lucía 13.1 Plt Count 300 MPV 9.7 Immature Gran % (Auto) 0.000 Neut % (Auto) 34.5 L Lymph % (Auto) 50.2 H Harlan % (Auto) 11.5 H Eos % (Auto) 2.7 Baso % (Auto) 1.1 H Absolute Neuts (auto) 1.5 L Absolute Lymphs (auto) 2.23 Nucleated RBC % 0 Differential Comment SCANNED Sodium 132 L Potassium 4.3 Chloride 100 Carbon Dioxide 27.0 Anion Gap 5 BUN 16 Creatinine 0.75 Estim Creat Clear Calc 49.64 Est GFR (MDRD) Af Amer 95 Est GFR (MDRD) Non-Af 79 BUN/Creatinine Ratio 21.2 H Glucose 98 Lactic Acid 1.2 Calcium 8.9 Total Bilirubin 0.30 AST 21 ALT 19 Alkaline Phosphatase 105 Troponin I High Sens 16 29 Total Protein 7.4 Albumin 3.5 Globulin 3.9 Albumin/Globulin Ratio 0.9 Lipase 52 Radiography Diagnostic Testing: Clinical Impression(s) from Imaging Studies Abdomen/Pelvis CT 10/28/23 05:22 IMPRESSION: 1. Severe calcifications and stenosis of multiple arterial origins, especially at the celiac axis but there is a small enhancing common trunk supplying hepatic artery and gastroduodenal artery. 2. Severe calcification and high-grade apparent stenosis at the origin and throughout most of the SMA, there are some very small but enhancing branches more distally. 3. Superiorly calcified proximal renal arteries with bilateral stents. The kidneys enhance symmetrically. 4. Mildly prominent gas in small bowel loops, no significant small bowel wall thickening. 5. Large hiatal hernia. 6. Relatively abrupt luminal narrowing and mild wall thickening from distal transverse colon-splenic flexure to the proximal sigmoid. Suspicion of at least subtle ischemic colitis. Correlate with any lower GI bleeding in left upper abdomen pain. 7. Nonvisualized appendix. Pessary. 8. Mildly prominently distended gallbladder with slightly dense dependent material, likely tiny stones. Dilated extrahepatic common duct without visible filling defect. Consider MRCP if there is elevated bilirubin. Consider ultrasound if acute cholecystitis is suspected. 9. Degenerative spine changes and demineralization. At least moderate to high-grade apparent spinal stenosis due to multifactorial degenerative change and mild spondylolisthesis at L4-5. Electronically Signed: Che Fajardo MD at 7:05 EDT , ADDENDUM: 10/28/23 0719 IMPRESSION: 1. Severe calcifications and stenosis of multiple arterial origins, especially at the celiac axis but there is a small enhancing common trunk supplying hepatic artery and gastroduodenal artery. 2. Severe calcification and high-grade apparent stenosis at the origin and throughout most of the SMA, there are some very small but enhancing branches more distally. 3. Superiorly calcified proximal renal arteries with bilateral stents. The kidneys enhance symmetrically. 4. Mildly prominent gas in small bowel loops, no significant small bowel wall thickening. 5. Large hiatal hernia. 6. Relatively abrupt luminal narrowing and mild wall thickening from distal transverse colon-splenic flexure to the proximal sigmoid. Suspicion of at least subtle ischemic colitis. Correlate with any lower GI bleeding in left upper abdomen pain. 7. Nonvisualized appendix. Pessary. 8. Mildly prominently distended gallbladder with slightly dense dependent material, likely tiny stones. Dilated extrahepatic common duct without visible filling defect. Consider MRCP if there is elevated bilirubin. Consider ultrasound if acute cholecystitis is suspected. 9. Degenerative spine changes and demineralization. At least moderate to high-grade apparent spinal stenosis due to multifactorial degenerative change and mild spondylolisthesis at L4-5. N.B. : The above Results were Read Back by Che Fajardo MD to Tiffanie Silverman MD, and understanding confirmed on 10/28/2023 07:12:09 (ET). Electronically Signed: Che Fajardo MD at 7:05 EDT , Chest X-Ray 10/28/23 05:28 IMPRESSION: No convincing acute intrathoracic abnormality. Hiatal hernia. Old granulomatous disease. Electronically Signed: Che Fajardo MD at 7:08 EDT , 1 view chest x-ray obtained interpreted by myself as no evidence of infiltrate or pneumothorax or acute disease process. There was evidence of hiatal hernia. Radiology in agreement. EKG Initial EKG: Attestation: I personally reviewed and interpreted this EKG as follows: Comments: Sinus rhythm with rate of [address] changes Prior EKG tracings: available for review Prior: Unchanged Discharge Plan Triage Chief Complaint: Chest Pain ED Provider: Tiffanie Silverman Dx/Rx/DC Orders Clinical Impression: Hypertensive emergency, Abdominal pain, Chest pain, Acute ischemic colitis Prescriptions: No Action aspirin 81 mg tablet,delayed release (DR/EC) 81 mg PO DAILY hydralazine 25 mg tablet 25 mg PO TID furosemide 20 mg Tablet 20 mg PO DAILY Qty: 30 0RF cholecalciferol (vitamin D3) 25 mcg (1,000 unit) capsule 25 mcg PO DAILY ascorbic acid (vitamin C) 500 mg Tablet 500 mg PO DAILYCM 30 Days Qty: 30 0RF buspirone 5 mg tablet 5 mg PO BID acetaminophen 500 mg Tablet 1,000 mg PO Q8H PRN (Reason: pain) estradiol 0.01 % (0.1 mg/gram) cream vaginal sodium chloride 1,000 mg tablet,soluble 1,000 mg PO .COMPLEX Patient Comments: pt unsure of dosage Rx Instructions: 1,000 mg orally; take 2 tablets in the morning, 1 tablet at night. ezetimibe 10 mg tablet See Rx Instructions .ROUTE .COMPLEX Qty: 30 6RF Dose Instruction: TAKE 1 TABLET BY MOUTH DAILY Rx Instructions: TAKE 1 TABLET BY MOUTH DAILY losartan 50 mg tablet 50 mg PO BID Qty: 180 1RF levocetirizine 5 mg tablet 5 mg PO DAILY Qty: 90 0RF carvedilol 12.5 mg tablet 12.5 mg PO BID Qty: 180 3RF pantoprazole 40 mg tablet,delayed release (DR/EC) 40 mg PO DAILY Qty: 90 0RF potassium chloride 20 mEq tablet extended release See Rx Instructions .ROUTE .COMPLEX Qty: 90 0RF Dose Instruction: TAKE 1 TABLET BY MOUTH ONCE DAILY Patient Comments: pt unsure on dosage Rx Instructions: TAKE 1 TABLET BY MOUTH ONCE DAILY alprazolam [Xanax] 0.5 mg tablet 0.5 mg PO DAILY PRN (Reason: anxiety) Qty: 15 0RF alendronate [Fosamax] 70 mg tablet 70 mg PO QWEEK Qty: 12 0RF Primary Care Provider: Aracely Blanc Referrals: Aracely Blanc MD [Primary Care Provider] - Disposition Disposition: Acute Care Hospital [facility]
[2023-10-28] MEDS: Ondansetron 4 MG/2 ML Vial IV (04:45)
[2023-10-28] MEDS: Morphine 4 MG/ML Syringe IV (04:45)
[2023-10-28] MEDS: Aspirin 81 MG TAB.CHEW 324 MG PO (04:45)
[2023-10-28] MEDS: 0.9% Normal Saline (1000mL) 1,000 ML 150 ML IV (04:53)
[2023-10-28 05:00] LABS: Absolute Lymphocyte Count 2.23 X10^3/uL (0.83-4.51); Absolute Neutrophil Count 1.5 X10^3/uL (2.0-7.7); Basophil# 0.05 X10^3/uL; Basophil% 1.1 % (0-1); Eosinophil# 0.12 X10^3/uL; Eosinophils% 2.7 % (0-5); Hematocrit 37.5 % (37-47); Hemoglobin 12.2 g/dL (12.0-15.0); Lymphocyte # 2.23 X10^3/ul (0.83-4.51); Lymphocyte % 50.2 % (19-41); Mean Corp Hgb Conc 32.5 g/dL (32-36); Mean Corpuscular Hgb 30.2 pg (27.0-32.0); Mean Corpuscular Volume 92.8 fL (81-99); Mean Platelet Vol. 9.7 fl (6.2-12.0); Monocyte# 0.51 X10^3/uL; Monocyte% 11.5 % (0-10); NRBC Flagged by Analyzer 0 % (0-5); Neutrophil # 1.53 X10^3/uL (2.7-7.7); Neutrophil % 34.5 % (47-70); POSITIVE MORPHOLOGY YES; Platelet Count 300 K/mm3 (150-450); RBC Distribution Width CV 13.1 % (11.6-14.6); RBC Distribution Width SD 44.2 fl (35.1-43.9); Red Blood Count 4.04 M/mm3 (4.2-5.4); White Blood Count 4.4 K/mm3 (4.4-11.0)
[2023-10-28 05:10] LABS: ALB/GLOB Ratio 0.9 RATIO (0.9-2.4); AST(SGOT) 21 U/L (15-37); Alanine Aminotransfer ALT/SGPT 19 U/L (13-56); Albumin, Serum 3.5 g/dL (3.2-5.0); Alkaline Phosphatase 105 U/L (45-117); Anion Gap 5 (5-15); BUN 16 mg/dL (7-18); BUN/Creat Ratio 21.2 RATIO (10-20); Calcium,Total 8.9 mg/dL (8.5-10.1); Chloride 100 mmol/L (98-107); Creatinine, Serum 0.75 mg/dL (0.55-1.02); EST Glomerular Filtration Rate 79 mL/min (>60); Est Glom Filt Rate - Afr Amer 95 mL/min (>60); Estimated Creatinine Clearance 49.64 ml/min; Globulin 3.9 g/dL (2.2-4.2); Glucose 98 mg/dL (74-106); Lipase 52 U/L (13-75); Potassium 4.3 mmol/L (3.5-5.1); Protein, Total 7.4 g/dL (6.4-8.2); Sodium Level 132 mmol/L (136-145); Troponin-I HS (w/2H Reflex) 16 pg/mL (3.0-54.0)
--- NOTE | 2023-10-28 05:22 | CT_ITS ---
We are attempting to reach an attending provider to discuss findings. An addendum with communication details will be sent when the communication is complete. EXAM: CT ABDOMEN AND PELVIS WITH INTRAVENOUS CONTRAST CLINICAL INDICATION: abdominal pain, upper TECHNIQUE: Helically acquired images were obtained of the abdomen and pelvis with intravenous contrast. This CT exam was performed using one or more of the following dose reduction techniques: automated exposure control, adjustment of the mA and/or kV according to patient size, and/or use of iterative reconstruction technique. RADIATION DOSE: CTDIvol = 18.90 mGy, DLP = 897.87 mGy-cmContrast: IV 100mL [id number] COMPARISON: No relevant prior studies available. FINDINGS: LOWER THORAX: Large hiatal hernia, at least one half of the stomach is posterior to the heart and mild gas and fluid. : Slight calcification in left anterior descending coronary artery. Mild mitral valve annular calcification. Upper limits of normal heart size. Lung bases are clear. No significant pericardial effusion. ABDOMEN: LIVER: Unremarkable. Homogeneous. No focal mass. GALLBLADDER AND BILE DUCTS: Mildly prominently distended gallbladder, 4.1 cm, with slight dense dependent material, likely due to tiny gravel-like stones. Mildly dilated common duct of 1.1 cm proximal, tapering to 6 mm distal. PANCREAS: Unremarkable. No focal cystic or solid mass. SPLEEN: Unremarkable. Normal size without focal cystic or solid mass. ADRENALS: Unremarkable. No nodules. KIDNEYS AND URETERS: Unremarkable. Normal renal size and position. No hydronephrosis. STOMACH AND BOWEL: Mildly prominent gas in small bowel loops. Moderate gas and stool in the proximal half of the colon. Collapsed mildly thick-walled appearance of splenic flexure, minimal contents in the almost collapsed left colon. Mild stool in the rectum. Exophytic left renal cyst of 4 cm. Moderate diverticulosis of moderate left pelvic sidewall. No stomach or bowel distention. PELVIS: APPENDIX: No evidence of acute appendicitis. BLADDER: Unremarkable. REPRODUCTIVE: Atrophic uterus 3.9 cm in length. There is a large pessary type ring in the vagina. ABDOMEN and PELVIS: INTRAPERITONEAL SPACE: Unremarkable. No ascites or other fluid collection. No free air. BONES/JOINTS: Moderate gas L5-S1 disc space. Normal L4-5 disc height slight anterolisthesis of L4-L5 of 4 mm. No suspicious lytic or blastic abnormality. SOFT TISSUES: Unremarkable. No discrete abdominal or pelvic wall hernia. VASCULATURE: Heavily calcified origins of the celiac axis and SMA, both appear significantly stenotic. Severely calcified and markedly stenotic long segment of SMA there are some enhanced distal branches. Patent main portal vein and mesenteric vessels. Severely calcified bilateral proximal renal arteries but there are bilateral metallic renal artery stents. No aortic aneurysm or dissection. LYMPH NODES: Unremarkable. No enlarged lymph nodes. CT/Abdomen/Pelvis W IV Cont ONLY IMPRESSION: 1. Severe calcifications and stenosis of multiple arterial origins, especially at the celiac axis but there is a small enhancing common trunk supplying hepatic artery and gastroduodenal artery. 2. Severe calcification and high-grade apparent stenosis at the origin and throughout most of the SMA, there are some very small but enhancing branches more distally. 3. Superiorly calcified proximal renal arteries with bilateral stents. The kidneys enhance symmetrically. 4. Mildly prominent gas in small bowel loops, no significant small bowel wall thickening. 5. Large hiatal hernia. 6. Relatively abrupt luminal narrowing and mild wall thickening from distal transverse colon-splenic flexure to the proximal sigmoid. Suspicion of at least subtle ischemic colitis. Correlate with any lower GI bleeding in left upper abdomen pain. 7. Nonvisualized appendix. Pessary. 8. Mildly prominently distended gallbladder with slightly dense dependent material, likely tiny stones. Dilated extrahepatic common duct without visible filling defect. Consider MRCP if there is elevated bilirubin. Consider ultrasound if acute cholecystitis is suspected. 9. Degenerative spine changes and demineralization. At least moderate to high-grade apparent spinal stenosis due to multifactorial degenerative change and mild spondylolisthesis at L4-5. Electronically Signed: Che Fajardo MD at 7:05 EDT ,
--- NOTE | 2023-10-28 05:28 | RAD_ITS ---
EXAM: XR CHEST, 1 VIEW CLINICAL INDICATION: chest pain TECHNIQUE: Frontal view of the chest. COMPARISON: No relevant prior studies available. FINDINGS: LUNGS AND PLEURAL SPACES: Minimal increased linear-interstitial markings in the lungs appear largely chronic. No pneumothorax. No effusion. HEART: Moderate gas projecting over the heart consistent with at least moderate hiatal hernia. 7.2 cm craniocaudal. MEDIASTINUM: Calcific densities projecting in the right subcarinal region, presumably calcified lymph nodes. BONES/JOINTS: Unremarkable. No acute fracture. SOFT TISSUES: Unremarkable. RAD/Chest 1 View (Portable) IMPRESSION: No convincing acute intrathoracic abnormality. Hiatal hernia. Old granulomatous disease. Electronically Signed: Che Fajardo MD at 7:08 EDT ,
[2023-10-28] MEDS: Labetalol (Prefilled) 20 MG/4 ML IV (05:40)
[2023-10-28 05:54] LABS: Differential Comment SCANNED; Differential Indicated SCAN CRITERIA MET
[2023-10-28] MEDS: hydrALAZINE 20 MG/ML Vial 10 MG IV (06:20)
[2023-10-28 06:42] LABS: Lactic Acid 1.2 mmol/L (0.4-1.9)
[2023-10-28 06:44] LABS: Reflex Troponin-HS? (from REC) Y
[2023-10-28 07:18] LABS: Troponin-I HS 29 pg/mL (3.0-54.0)
--- NOTE | 2023-10-28 07:47 | PCM.HP.STD ---
[facility] - General General Date of Admission: 10/28/23 Date of Service: 10/28/23 Chief Complaint: Lower chest and abdominal pain that started today at 2 AM. HPI Narrative SANJIV PEOPLES, is a 78 F with multiple comorbidities including CAD status post stent and CVA came to ED with lower chest pain and upper abdominal pain that started at 2 AM. Patient stated that she had left shoulder pain and right lower extremity arthritis pain and she went to take Tylenol but after that she started having lower and upper abdominal pain. She described as constant, severe, sudden onset and soon became generalized. She felt more abdominal pain than chest pain. No aggravating or relieving factor. Pain got better after she came to ED and had morphine. Currently she have 5-6/10 intensity pain. She denies nausea vomiting, hematemesis melena or hematochezia. She stated she had a small bowel movement in the morning, does not remember about yesterday but had 1 bowel movement a day before yesterday. Patient denies any significant weight loss recently last 6 months. In ED, her blood pressure was high and was given labetalol. Labs EKG and CT abdomen/pelvis imaging reviewed and discussed in assessment and plan [facility] Medical History Anxiety and depression Atherosclerotic heart disease of [place] coronary artery without angina pectoris Chest pain CKD (chronic kidney disease) COVID-19 CVA (cerebral vascular accident) Difficulty balancing when standing Essential hypertension Fatigue Heart disease History of gastroesophageal reflux (GERD) HLD (hyperlipidemia) Hypertensive urgency Hypertensive urgency Hyponatremia Kidney disease Knee pain Near syncope Non-rheumatic mitral regurgitation PAD (peripheral artery disease) Pessary maintenance Presence of stent in coronary artery (~04/16/20) Renal artery stenosis Skin cancer SOB (shortness of breath) Syncope and collapse Syncope due to orthostatic hypotension Urinary frequency Vaginal wall prolapse Home Medications furosemide 20 mg tablet 20 mg PO DAILY water pill #30 tabs 08/17/22 [Rx Last Taken Unknown] cholecalciferol (vitamin D3) 25 mcg (1,000 unit) capsule 25 mcg PO DAILY vit D3 04/09/23 [History Last Taken Unknown] ascorbic acid (vitamin C) 500 mg tablet 500 mg PO DAILYCM 30 days #30 tabs 04/12/23 [Rx Last Taken Unknown] aspirin 81 mg tablet,delayed release 81 mg PO DAILY 04/19/23 [History Last Taken Unknown] hydralazine 25 mg tablet 25 mg PO TID 04/19/23 [History Last Taken Unknown] ezetimibe 10 mg tablet See Rx Instructions .Route .COMPLEX #30 tabs 05/12/23 [Rx Last Taken Unknown] losartan 50 mg tablet 50 mg PO BID #180 tabs 06/21/23 [Rx Last Taken Unknown] levocetirizine 5 mg tablet 5 mg PO DAILY #90 tabs 07/24/23 [Rx Last Taken Unknown] carvedilol 12.5 mg tablet 12.5 mg PO BID bp #180 tabs 08/22/23 [Rx Last Taken Unknown] pantoprazole 40 mg tablet,delayed release 40 mg PO DAILY acid reflux #90 tabs 10/02/23 [Rx Last Taken Unknown] potassium chloride 20 mEq tablet,extended release See Rx Instructions .Route .COMPLEX potassium #90 tabs 10/10/23 [Rx Last Taken 10/27/23] alendronate 70 mg tablet (Fosamax) 70 mg PO QWEEK #12 tabs 10/23/23 [Rx Last Taken Unknown] alprazolam 0.5 mg tablet (Xanax) 0.5 mg PO DAILY PRN anxiety #15 tabs 10/23/23 [Rx Last Taken Unknown] acetaminophen 500 mg tablet 1,000 mg PO Q8H PRN pain 10/28/23 [History Last Taken Unknown] buspirone 5 mg tablet 5 mg PO BID 10/28/23 [History Last Taken Unknown] estradiol 0.01% (0.1 mg/gram) vaginal cream vaginal 10/28/23 [History Last Taken Unknown] sodium chloride 1,000 mg soluble tablet 1,000 mg PO .COMPLEX supplement 10/28/23 [History Last Taken Unknown] Allergy/AdvReac Type Severity Reaction Status Date / Time amlodipine AdvReac Intermediate swelling Verified 10/28/23 04:26 [id number]-[id number] Reductase AdvReac leg muscle Verified 10/28/23 04:26 Inhibitor weakness [Vtovxjs-Swe-Jtq Reductase Inhibitor] Family History Mother CAD (coronary artery disease) CVA (cerebral vascular accident) Brother CVA (cerebral vascular accident) Heart disease Kidney disease Diabetes Sister CAD (coronary artery disease) Sister Diabetes Brother Diabetes Brother CAD (coronary artery disease) Other Cancer Hypertension Surgical History H/O oral surgery History of bilateral cataract extraction History of renal stent History of right knee joint replacement Presence of coronary angioplasty implant and graft (~03/18/20) S/P skin biopsy (~08/2022) Social History household members: other details: granddaughter 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 No fever. HEENT: Reports systems reviewed and no addt'l complaints, except as documented Respiratory/Chest: Denies chronic lung disease. No acute shortness of breath or respiratory distress or wheezing. CVS: Chest pain as described in HPI. Denies history of A-fib. No palpitations, irregular heartbeat diaphoresis. Gastrointestinal: Denies coffee ground emesis, hematemesis or vomiting. Rest as described in HPI Genitourinary: Denies burning urination or new urinary tract symptoms Musculoskeletal: Denies acute joint pain or limited range of motion. No acute injury. Chronic arthritis Neurologic: Denies seizure-like symptoms. skin: No ulcer. No rash Endocrinology: Reports systems reviewed and no addt'l complaints, except as documented Hematologic/Lymphatic: Reports systems reviewed and no addt'l complaints, except as documented Rest 14 ROS are negative except as mentioned in HPI Vital Signs Vital Signs Vital Signs: 10/28/23 04:26 10/28/23 04:26 10/28/23 04:31 Temperature 96 F L Temperature Source Temporal Pulse Rate 66 Respiratory Rate 17 Respiratory Effort Normal Non-Labored Blood Pressure 254/108 H Blood Pressure Mean 156 Pulse Ox 98 Oxygen Delivery Method Room Air 10/28/23 04:38 10/28/23 05:26 10/28/23 06:00 Temperature Temperature Source Pulse Rate 65 64 Respiratory Rate 16 15 Respiratory Effort Blood Pressure 238/85 H 231/85 H Blood Pressure Mean 136 133 Pulse Ox 95 95 Oxygen Delivery Method Room Air Room Air Room Air 10/28/23 06:32 10/28/23 07:08 Temperature 97.4 F L Temperature Source Oral Pulse Rate 69 87 Respiratory Rate 16 16 Respiratory Effort Blood Pressure 217/72 H 176/64 H Blood Pressure Mean 120 101 Pulse Ox 97 98 Oxygen Delivery Method Room Air Room Air Weight Weight: 153 lb 7.068 oz Body Mass Index (BMI) 30.9 Physical Exam Narrative General: Alert, Oriented x3, Cooperative HEENT: Atraumatic, PERRLA, EOMI, Normocephalic Oral: Oral mucosa dry. No Gingival or Mucosal Lesions/ Ulcerations Neck: Supple, No JVD, Negative Carotid Bruits Chest wall/Lungs: Air entry diminished in bilateral lung bases. No crepitation/rhonchi Cardiovascular: Regular rate, Regular Rhythm, Normal S1, Normal S2, No M/G/R Abdomen: Bowel Sounds Present, Soft, tenderness present in the mid abdomen, predominantly left upper quadrant. No distention. No guarding/rigidity. : No dysuria. No renal angle tenderness. No suprapubic tenderness. Extremities: No edema, Capillary Refill Less than 3 Seconds Skin: No rashes, No breakdown Musculoskeletal: No Tenderness to Palpation of Joints or Extremities Neurological: Cranial nerves II-XII grossly intact, DTR 2+/4. No acute focal neurological deficit. Psych/Mental Status: Normal Affect, Appropriate. Results Lab / Micro Data 10/28/23 04:40 10/28/23 04:40 Labs: Laboratory Results - last 24 hr 10/28/23 04:40: WBC 4.4, RBC 4.04 L, Hgb 12.2, Hct 37.5, MCV 92.8, MCH 30.2, MCHC 32.5, RDW Std Deviation 44.2 H, RDW Coeff of Lucía 13.1, Plt Count 300, MPV 9.7, Immature Gran % (Auto) 0.000, Neut % (Auto) 34.5 L, Lymph % (Auto) 50.2 H, [place] % (Auto) 11.5 H, Eos % (Auto) 2.7, Baso % (Auto) 1.1 H, Absolute Neuts (auto) 1.5 L, Absolute Lymphs (auto) 2.23, Nucleated RBC % 0, Differential Comment SCANNED, Sodium 132 L, Potassium 4.3, Chloride 100, Carbon Dioxide 27.0, Anion Gap 5, BUN 16, Creatinine 0.75, Estim Creat Clear Calc 49.64, Est GFR (MDRD) Af Amer 95, Est GFR (MDRD) Non-Af 79, BUN/Creatinine Ratio 21.2 H, Glucose 98, Calcium 8.9, Total Bilirubin 0.30, AST 21, ALT 19, Alkaline Phosphatase 105, Troponin I High Sens 16, Total Protein 7.4, Albumin 3.5, Globulin 3.9, Albumin/Globulin Ratio 0.9, Lipase 52 10/28/23 05:58: Lactic Acid 1.2 10/28/23 06:52: Troponin I High Sens 29 Imaging Radiology Impression Abdomen/Pelvis CT 10/28/23 05:22 IMPRESSION: 1. Severe calcifications and stenosis of multiple arterial origins, especially at the celiac axis but there is a small enhancing common trunk supplying hepatic artery and gastroduodenal artery. 2. Severe calcification and high-grade apparent stenosis at the origin and throughout most of the SMA, there are some very small but enhancing branches more distally. 3. Superiorly calcified proximal renal arteries with bilateral stents. The kidneys enhance symmetrically. 4. Mildly prominent gas in small bowel loops, no significant small bowel wall thickening. 5. Large hiatal hernia. 6. Relatively abrupt luminal narrowing and mild wall thickening from distal transverse colon-splenic flexure to the proximal sigmoid. Suspicion of at least subtle ischemic colitis. Correlate with any lower GI bleeding in left upper abdomen pain. 7. Nonvisualized appendix. Pessary. 8. Mildly prominently distended gallbladder with slightly dense dependent material, likely tiny stones. Dilated extrahepatic common duct without visible filling defect. Consider MRCP if there is elevated bilirubin. Consider ultrasound if acute cholecystitis is suspected. 9. Degenerative spine changes and demineralization. At least moderate to high-grade apparent spinal stenosis due to multifactorial degenerative change and mild spondylolisthesis at L4-5. Electronically Signed: Che Fajardo MD at 7:05 EDT , ADDENDUM: 10/28/23 0719 IMPRESSION: 1. Severe calcifications and stenosis of multiple arterial origins, especially at the celiac axis but there is a small enhancing common trunk supplying hepatic artery and gastroduodenal artery. 2. Severe calcification and high-grade apparent stenosis at the origin and throughout most of the SMA, there are some very small but enhancing branches more distally. 3. Superiorly calcified proximal renal arteries with bilateral stents. The kidneys enhance symmetrically. 4. Mildly prominent gas in small bowel loops, no significant small bowel wall thickening. 5. Large hiatal hernia. 6. Relatively abrupt luminal narrowing and mild wall thickening from distal transverse colon-splenic flexure to the proximal sigmoid. Suspicion of at least subtle ischemic colitis. Correlate with any lower GI bleeding in left upper abdomen pain. 7. Nonvisualized appendix. Pessary. 8. Mildly prominently distended gallbladder with slightly dense dependent material, likely tiny stones. Dilated extrahepatic common duct without visible filling defect. Consider MRCP if there is elevated bilirubin. Consider ultrasound if acute cholecystitis is suspected. 9. Degenerative spine changes and demineralization. At least moderate to high-grade apparent spinal stenosis due to multifactorial degenerative change and mild spondylolisthesis at L4-5. N.B. : The above Results were Read Back by Che Fajardo MD to Tiffanie Silverman MD, and understanding confirmed on 10/28/2023 07:12:09 (ET). Electronically Signed: Che Fajardo MD at 7:05 EDT , Chest X-Ray 10/28/23 05:28 IMPRESSION: No convincing acute intrathoracic abnormality. Hiatal hernia. Old granulomatous disease. Electronically Signed: Che Fajardo MD at 7:08 EDT , Assessment & Plan Assessment/Plan (1) Acute ischemic colitis: (2) Hypertensive crisis: PLAN: Plan This is 78-year-old female being admitted for lower chest pain and abdominal pain which seems from acute ischemic colitis. 1. Acute abdominal pain, sudden onset most likely acute ischemic mesenteric colitis: Patient is being admitted in PCU. Patient was evaluated by surgeon. She she had mild nausea and vomiting about 3 days ago on Monday. Mild dehydration continue IV fluid support. Monitor intake and output. Pain controlled. No indication for antibiotic. Patient might need evaluation by vascular surgeon for stenotic celiac artery and mesenteric artery as mentioned above was not seem acute emergency. CT abdomen pelvis with IV contrast individually reviewed. It shows severe calcification and stenosis of multiple arterial origins specially celiac axis, high-grade stenosis at origin of throughout most of SMA. Superbly calcified proximal renal arteries with bilateral stents. Prominent gas in the small bowel loops mostly due to small bowel wall thickening. Relatively abrupt luminal narrowing and mild wall thickening of the distal transverse colon to splenic flexure to proximal sigmoid, subtle ischemic colitis Hyponatremia: Mild hypovolemic hyponatremia: Serum sodium is 132. Patient on IV fluid normal saline. Patient also on sodiums tablet at home but will hold it until verified with pharmacy 2. Lower chest pain seems migration from abdominal pain: 2 serial troponins are negative.12-lead EKG individually reviewed normal sinus rhythm at 64 bpm, QTc 430 ms, QRS 82 ms MO 180 ms. 3. Hypertensive crisis: BP in ED was 238/88: Will keep her blood pressure about 160-170 systolic for next 2 to 3 days to avoid hypoperfusion of vital organ. 4. CAD status postcardiac stent in 2019, bilateral renal artery stent, PAD: Patient has advanced history of peripheral arterial disease. Since patient also has history of CVA in the past but no obvious residual deficit. Home cardiac medications continued 5. Other comorbidities include anxiety and depression, GERD, debility, history of vaginal wall prolapse and pessary maintenance: Home medications reconciliation done. Living will/advanced directive/end of life care: Patient does have living will or advanced directive. Her niece is power of information technology coordinator for health. After discussion of benefits/risks procedures involved with full code, DNR CC arrest and DNR CC, the patient opted for DNR CC arrest with no intubation Patient doesn't want artificial life support including intubation, tube feed, ventilator and/chest compression, central venous catheter, vasopressor and DC shock if needed Total time spent in [id number] encounter in discussion of advanced directive 17 minutes. Laboratory Results 10/28/23 04:40: WBC 4.4, RBC 4.04 L, Hgb 12.2, Hct 37.5, MCV 92.8, MCH 30.2, MCHC 32.5, RDW Std Deviation 44.2 H, RDW Coeff of Lucía 13.1, Plt Count 300, MPV 9.7, Immature Gran % (Auto) 0.000, Neut % (Auto) 34.5 L, Lymph % (Auto) 50.2 H, [place] % (Auto) 11.5 H, Eos % (Auto) 2.7, Baso % (Auto) 1.1 H, Absolute Neuts (auto) 1.5 L, Absolute Lymphs (auto) 2.23, Nucleated RBC % 0, Differential Comment SCANNED, Sodium 132 L, Potassium 4.3, Chloride 100, Carbon Dioxide 27.0, Anion Gap 5, BUN 16, Creatinine 0.75, Estim Creat Clear Calc 49.64, Est GFR (MDRD) Af Amer 95, Est GFR (MDRD) Non-Af 79, BUN/Creatinine Ratio 21.2 H, Glucose 98, Calcium 8.9, Total Bilirubin 0.30, AST 21, ALT 19, Alkaline Phosphatase 105, Troponin I High Sens 16, Total Protein 7.4, Albumin 3.5, Globulin 3.9, Albumin/Globulin Ratio 0.9, Lipase 52 10/28/23 05:58: Lactic Acid 1.2 10/28/23 06:52: Magnesium 2.1, Troponin I High Sens 29 Clinical Impression(s) from Imaging Studies Abdomen/Pelvis CT 10/28/23 05:22 IMPRESSION: 1. Severe calcifications and stenosis of multiple arterial origins, especially at the celiac axis but there is a small enhancing common trunk supplying hepatic artery and gastroduodenal artery. 2. Severe calcification and high-grade apparent stenosis at the origin and throughout most of the SMA, there are some very small but enhancing branches more distally. 3. Superiorly calcified proximal renal arteries with bilateral stents. The kidneys enhance symmetrically. 4. Mildly prominent gas in small bowel loops, no significant small bowel wall thickening. 5. Large hiatal hernia. 6. Relatively abrupt luminal narrowing and mild wall thickening from distal transverse colon-splenic flexure to the proximal sigmoid. Suspicion of at least subtle ischemic colitis. Correlate with any lower GI bleeding in left upper abdomen pain. 7. Nonvisualized appendix. Pessary. 8. Mildly prominently distended gallbladder with slightly dense dependent material, likely tiny stones. Dilated extrahepatic common duct without visible filling defect. Consider MRCP if there is elevated bilirubin. Consider ultrasound if acute cholecystitis is suspected. 9. Degenerative spine changes and demineralization. At least moderate to high-grade apparent spinal stenosis due to multifactorial degenerative change and mild spondylolisthesis at L4-5. Electronically Signed: Che Fajardo MD at 7:05 EDT , ADDENDUM: 10/28/23 0719 IMPRESSION: 1. Severe calcifications and stenosis of multiple arterial origins, especially at the celiac axis but there is a small enhancing common trunk supplying hepatic artery and gastroduodenal artery. 2. Severe calcification and high-grade apparent stenosis at the origin and throughout most of the SMA, there are some very small but enhancing branches more distally. 3. Superiorly calcified proximal renal arteries with bilateral stents. The kidneys enhance symmetrically. 4. Mildly prominent gas in small bowel loops, no significant small bowel wall thickening. 5. Large hiatal hernia. 6. Relatively abrupt luminal narrowing and mild wall thickening from distal transverse colon-splenic flexure to the proximal sigmoid. Suspicion of at least subtle ischemic colitis. Correlate with any lower GI bleeding in left upper abdomen pain. 7. Nonvisualized appendix. Pessary. 8. Mildly prominently distended gallbladder with slightly dense dependent material, likely tiny stones. Dilated extrahepatic common duct without visible filling defect. Consider MRCP if there is elevated bilirubin. Consider ultrasound if acute cholecystitis is suspected. 9. Degenerative spine changes and demineralization. At least moderate to high-grade apparent spinal stenosis due to multifactorial degenerative change and mild spondylolisthesis at L4-5. N.B. : The above Results were Read Back by Che Fajardo MD to Tiffanie Silverman MD, and understanding confirmed on 10/28/2023 07:12:09 (ET). Electronically Signed: Che Fajardo MD at 7:05 EDT , Chest X-Ray 04/27/24 05:28 IMPRESSION: No convincing acute intrathoracic abnormality. Hiatal hernia. Old granulomatous disease. Electronically Signed: Che Fajardo MD at 7:08 EDT , Charges/Coding Visit Charges Inpatient E&M: 23782 Init Hosp L3 Procedures Hospitalists Procedures: 05918 Advncd Care Plan 30 Min
[2023-10-28 08:05] LABS: Magnesium 2.1 mg/dL (1.6-2.6)
--- NOTE | 2023-10-28 09:16 | EX.PCM.CON.S ---
Assessment & Plan Assessment/Plan (1) Acute ischemic colitis: PLAN: Patient is a 78-year-old female with extensive atherosclerotic disease who presents with complaints of acute onset abdominal and chest pain with probable source being acute ischemic colitis. Significantly, she demonstrates no leukocytosis or lactic acidosis. She also denies any recent weight loss or postprandial discomfort. These answers suggest that she does not routinely suffer from mesenteric ischemia despite radiographic evidence of stenotic origins for both the celiac and SMA trunks. She does confess to some recent suboptimal fluid intake and probable dehydration. Her exam is relatively benign in the emergency department. Thus I discussed with her the management of her condition and shared that at present there were no indications for surgical intervention, however, should her clinical status deteriorate she may require transfer to a tertiary facility where vascular surgery assistance would be possible. For the interim I recommend conservative supportive therapy with application of IV fluids and gentle reinitiation of a diet with clear liquids. Patient should be monitored for tolerance. Daily labs should be obtained. Surgery to continue to follow with serial abdominal exams. Celestine Prater MD General Surgery Endocrine Surgery Pager: [facility] [address] [place] [address], [address] [place] [address] Office: [phone] HPI Consult Data Date of Consult: 10/28/23 HPI Narrative Reason for Consultation: Ischemic colitis HPI Narrative: SANJIV PEOPLES, is a 78 F who presents to [facility] complaining of severe chest and abdominal pain that began around 2 AM this morning. She notes that her blood pressure was significantly elevated at 220/94 and combination of the intensity of the pain and her blood pressure moved her to seek evaluation. She denies any associated nausea or change in her bowel habits with this presentation, however, she states that she had a stomach pain on 10/25/2023 that was associated with some diarrhea. She shares that she took some Mylanta and this seemed to take away her discomfort. She notes that she tried both major abundio and Mylanta for the current complaints but did not receive any relief. She now shares that she is much comfortable after receiving some morphine upon her arrival to the emergency department. Patient's ER workup is notable for CBC that shows a normal WBC and no evidence of left shift. Lactic acid was obtained and this was within normal limits at 1.2. CT imaging of the abdomen pelvis was obtained with IV contrast and showed evidence of severe stenosis of the origin of the celiac and SMA arteries. There is also suggestion of thickened left colon from the splenic flexure inferiorly. Patient shares that she is aware of a history of extensive vascular disease?including coronary artery disease, peripheral arterial disease, and renal artery stenosis. 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 She confesses that she likely got dehydrated after her symptoms earlier in the week and that she struggles to remember to drink as a general rule. She denies, specifically, any regular discomfort after eating or any recent weight loss. Relative to her onset of the above symptoms, patient states that her last oral intake was about 930 the evening before. [facility] Medical History Anxiety and depression Atherosclerotic heart disease of [place] coronary artery without angina pectoris Chest pain CKD (chronic kidney disease) COVID-19 CVA (cerebral vascular accident) Difficulty balancing when standing Essential hypertension Fatigue Heart disease History of gastroesophageal reflux (GERD) HLD (hyperlipidemia) Hypertensive urgency Hypertensive urgency Hyponatremia Kidney disease Knee pain Near syncope Non-rheumatic mitral regurgitation PAD (peripheral artery disease) Pessary maintenance Presence of stent in coronary artery (~04/16/20) Renal artery stenosis Skin cancer SOB (shortness of breath) Syncope and collapse Syncope due to orthostatic hypotension Urinary frequency Vaginal wall prolapse Home Medications furosemide 20 mg tablet 20 mg PO DAILY water pill #30 tabs 08/17/22 [Rx Last Taken Unknown] cholecalciferol (vitamin D3) 25 mcg (1,000 unit) capsule 25 mcg PO DAILY vit D3 04/09/23 [History Last Taken Unknown] ascorbic acid (vitamin C) 500 mg tablet 500 mg PO DAILYCM 30 days #30 tabs 04/12/23 [Rx Last Taken Unknown] aspirin 81 mg tablet,delayed release 81 mg PO DAILY 04/19/23 [History Last Taken Unknown] hydralazine 25 mg tablet 25 mg PO TID 04/19/23 [History Last Taken Unknown] ezetimibe 10 mg tablet See Rx Instructions .Route .COMPLEX #30 tabs 05/12/23 [Rx Last Taken Unknown] losartan 50 mg tablet 50 mg PO BID #180 tabs 06/21/23 [Rx Last Taken Unknown] levocetirizine 5 mg tablet 5 mg PO DAILY #90 tabs 07/24/23 [Rx Last Taken Unknown] carvedilol 12.5 mg tablet 12.5 mg PO BID bp #180 tabs 08/22/23 [Rx Last Taken Unknown] pantoprazole 40 mg tablet,delayed release 40 mg PO DAILY acid reflux #90 tabs 10/02/23 [Rx Last Taken Unknown] potassium chloride 20 mEq tablet,extended release See Rx Instructions .Route .COMPLEX potassium #90 tabs 10/10/23 [Rx Last Taken 10/27/23] alendronate 70 mg tablet (Fosamax) 70 mg PO QWEEK #12 tabs 10/23/23 [Rx Last Taken Unknown] alprazolam 0.5 mg tablet (Xanax) 0.5 mg PO DAILY PRN anxiety #15 tabs 10/23/23 [Rx Last Taken Unknown] acetaminophen 500 mg tablet 1,000 mg PO Q8H PRN pain 10/28/23 [History Last Taken Unknown] buspirone 5 mg tablet 5 mg PO BID 10/28/23 [History Last Taken Unknown] estradiol 0.01% (0.1 mg/gram) vaginal cream vaginal 10/28/23 [History Last Taken Unknown] sodium chloride 1,000 mg soluble tablet 1,000 mg PO .COMPLEX supplement 10/28/23 [History Last Taken Unknown] Allergy/AdvReac Type Severity Reaction Status Date / Time amlodipine AdvReac Intermediate swelling Verified 10/28/23 04:26 [id number] Reductase AdvReac leg muscle Verified 10/28/23 04:26 Inhibitor weakness [Znhzlgd-Cbk-Jda Reductase Inhibitor] Family History Mother CAD (coronary artery disease) CVA (cerebral vascular accident) Brother CVA (cerebral vascular accident) Heart disease Kidney disease Diabetes Sister CAD (coronary artery disease) Sister Diabetes Brother Diabetes Brother CAD (coronary artery disease) Other Cancer Hypertension Surgical History H/O oral surgery History of bilateral cataract extraction History of renal stent History of right knee joint replacement Presence of coronary angioplasty implant and graft (~03/18/20) S/P skin biopsy (~08/2022) Social History household members: other details: granddaughter 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 Smoking Status: Never smoker Electronic Cigarette Use: not used alcohol intake: never substance use type: does not use caffeine: No what type of physical activity do you participate in: none seatbelt use: always do you feel safe at home: Yes additional social history: - Retired 1 adopted daughter-, drug use ROS Constitutional Constitutional: Denies anorexia or weight loss Cardiovascular Cardiovascular: Reports chest pain Gastrointestinal Gastrointestinal: Reports abdominal pain, diarrhea and nausea Physical Exam Const alert and oriented x3 Resp normal respiratory effort GI GI Narrative: Nondistended, no scars, soft, mildly tender to palpation (patient rates it a 3-4 out of 10) of the right lower quadrant and left upper quadrant. No guarding or peritoneal signs. Lab / Micro Data 10/28/23 04:40 10/28/23 04:40 Labs: Laboratory Results - last 24 hr 10/28/23 04:40: WBC 4.4, RBC 4.04 L, Hgb 12.2, Hct 37.5, MCV 92.8, MCH 30.2, MCHC 32.5, RDW Std Deviation 44.2 H, RDW Coeff of Lucía 13.1, Plt Count 300, MPV 9.7, Immature Gran % (Auto) 0.000, Neut % (Auto) 34.5 L, Lymph % (Auto) 50.2 H, Evangeline % (Auto) 11.5 H, Eos % (Auto) 2.7, Baso % (Auto) 1.1 H, Absolute Neuts (auto) 1.5 L, Absolute Lymphs (auto) 2.23, Nucleated RBC % 0, Differential Comment SCANNED, Sodium 132 L, Potassium 4.3, Chloride 100, Carbon Dioxide 27.0, Anion Gap 5, BUN 16, Creatinine 0.75, Estim Creat Clear Calc 49.64, Est GFR (MDRD) Af Amer 95, Est GFR (MDRD) Non-Af 79, BUN/Creatinine Ratio 21.2 H, Glucose 98, Calcium 8.9, Total Bilirubin 0.30, AST 21, ALT 19, Alkaline Phosphatase 105, Troponin I High Sens 16, Total Protein 7.4, Albumin 3.5, Globulin 3.9, Albumin/Globulin Ratio 0.9, Lipase 52 10/28/23 05:58: Lactic Acid 1.2 10/28/23 06:52: Magnesium 2.1, Troponin I High Sens 29 Imaging Radiology Impression Abdomen/Pelvis CT 10/28/23 05:22 IMPRESSION: 1. Severe calcifications and stenosis of multiple arterial origins, especially at the celiac axis but there is a small enhancing common trunk supplying hepatic artery and gastroduodenal artery. 2. Severe calcification and high-grade apparent stenosis at the origin and throughout most of the SMA, there are some very small but enhancing branches more distally. 3. Superiorly calcified proximal renal arteries with bilateral stents. The kidneys enhance symmetrically. 4. Mildly prominent gas in small bowel loops, no significant small bowel wall thickening. 5. Large hiatal hernia. 6. Relatively abrupt luminal narrowing and mild wall thickening from distal transverse colon-splenic flexure to the proximal sigmoid. Suspicion of at least subtle ischemic colitis. Correlate with any lower GI bleeding in left upper abdomen pain. 7. Nonvisualized appendix. Pessary. 8. Mildly prominently distended gallbladder with slightly dense dependent material, likely tiny stones. Dilated extrahepatic common duct without visible filling defect. Consider MRCP if there is elevated bilirubin. Consider ultrasound if acute cholecystitis is suspected. 9. Degenerative spine changes and demineralization. At least moderate to high-grade apparent spinal stenosis due to multifactorial degenerative change and mild spondylolisthesis at L4-5. Electronically Signed: Che Fajardo MD at 7:05 EDT Reading Location ID and State: [facility] / [place] Tel , Service support , ADDENDUM: 10/28/23 0719 IMPRESSION: 1. Severe calcifications and stenosis of multiple arterial origins, especially at the celiac axis but there is a small enhancing common trunk supplying hepatic artery and gastroduodenal artery. 2. Severe calcification and high-grade apparent stenosis at the origin and throughout most of the SMA, there are some very small but enhancing branches more distally. 3. Superiorly calcified proximal renal arteries with bilateral stents. The kidneys enhance symmetrically. 4. Mildly prominent gas in small bowel loops, no significant small bowel wall thickening. 5. Large hiatal hernia. 6. Relatively abrupt luminal narrowing and mild wall thickening from distal transverse colon-splenic flexure to the proximal sigmoid. Suspicion of at least subtle ischemic colitis. Correlate with any lower GI bleeding in left upper abdomen pain. 7. Nonvisualized appendix. Pessary. 8. Mildly prominently distended gallbladder with slightly dense dependent material, likely tiny stones. Dilated extrahepatic common duct without visible filling defect. Consider MRCP if there is elevated bilirubin. Consider ultrasound if acute cholecystitis is suspected. 9. Degenerative spine changes and demineralization. At least moderate to high-grade apparent spinal stenosis due to multifactorial degenerative change and mild spondylolisthesis at L4-5. N.B. : The above Results were Read Back by Che Fajardo MD to Tiffanie Silverman MD, and understanding confirmed on 10/28/2023 07:12:09 (ET). Electronically Signed: Che Fajardo MD at 7:05 EDT , Chest X-Ray 10/28/23 05:28 IMPRESSION: No convincing acute intrathoracic abnormality. Hiatal hernia. Old granulomatous disease. Electronically Signed: Che Fajardo MD at 7:08 EDT , Charges/Coding Visit Charges Inpatient E&M: 35927 Init Hosp L2
[2023-10-28] MEDS: Pantoprazole Sodium 40 MG in 0.9% Normal Saline (100mL MB+) 100 ML 330 MG IV (12:19)
[2023-10-28] MEDS: 0.9% Normal Saline (1000mL) 1,000 ML 100 ML IV ×2 (12:19→21:21)
[2023-10-28] MEDS: busPIRone 5 MG Tablet PO ×2 (13:17→21:18)
[2023-10-28] MEDS: Aspirin E.C. 81 MG Tablet PO (13:17)
[2023-10-28] MEDS: Loratadine 10 MG Tablet PO (13:17)
[2023-10-28] MEDS: Cholecalciferol (VIT D3) 25 MCG TABLET (1,000 UNITS) PO (13:17)
[2023-10-28] MEDS: Ezetimibe 10 MG Tablet PO (13:17)
[2023-10-28 15:31] LABS: Bacteria 0 SEEN /hpf (None Seen); Mucous, Urine 0 SEEN /hpf (<or=2+); Red Blood Cells-Urine 0 SEEN /hpf (0-5)
[2023-10-28 15:51] LABS: Color, Urine Yellow (Yellow); Glucose, Dipstick Normal (Normal); Ketone-Dipstick 5 mg/dl (Negative); Leukocyte Esterase-Dipstick Negative /ul (Negative); Nitrite-Dipstick Negative (Negative); Occult Blood-Urine Negative /ul (Negative); Protein-Dipstick 30 mg/dl (Negative); Urine Bilirubin Dipstick Negative (Negative); Urine Clarity Clear (Clear); Urine Urobilinogen Normal (Normal); Urine pH 6.5 (5.0 - 8.0)
[2023-10-28 16:01] LABS: Squamous Epithelial Cells - UA 0-5 SEEN /hpf (5-10); White Blood Cells 0-5 SEEN /hpf (0-5)
[2023-10-28] MEDS: Carvedilol 12.5 MG Tablet PO (16:50)
[2023-10-28] MEDS: Acetaminophen 500 MG Tablet 1000 MG PO (16:52)
[2023-10-28] MEDS: ALPRAZolam 0.5 MG Tablet PO (21:18)
[2023-10-29] VITALS (9 sets, daily range): BP systolic 146–198; BP diastolic 53–78; PULSE 63–73; RESP 16–18; TEMP 36.4–36.9; O2SAT 95–98
[2023-10-29] MEDS: hydrALAZINE 25 MG Tablet PO (04:35)
[2023-10-29 06:15] LABS: Absolute Lymphocyte Count 1.68 X10^3/uL (0.83-4.51); Absolute Neutrophil Count 1.5 X10^3/uL (2.0-7.7); Basophil# 0.04 X10^3/uL; Basophil% 1.1 % (0-1); Eosinophil# 0.15 X10^3/uL; Hematocrit 31.4 % (37-47); Hemoglobin 10.2 g/dL (12.0-15.0); Lymphocyte # 1.68 X10^3/ul (0.83-4.51); Lymphocyte % 44.7 % (19-41); Mean Corp Hgb Conc 32.5 g/dL (32-36); Mean Corpuscular Hgb 29.9 pg (27.0-32.0); Mean Corpuscular Volume 92.1 fL (81-99); Mean Platelet Vol. 9.8 fl (6.2-12.0); Monocyte# 0.38 X10^3/uL; Monocyte% 10.1 % (0-10); NRBC Flagged by Analyzer 0 % (0-5); Neutrophil % 39.8 % (47-70); Platelet Count 242 K/mm3 (150-450); RBC Distribution Width CV 13.2 % (11.6-14.6); RBC Distribution Width SD 44.5 fl (35.1-43.9); Red Blood Count 3.41 M/mm3 (4.2-5.4); White Blood Count 3.8 K/mm3 (4.4-11.0)
[2023-10-29 07:20] LABS: Anion Gap 3 (5-15); BUN 8 mg/dL (7-18); BUN/Creat Ratio 12.9 RATIO (10-20); Calcium,Total 8.1 mg/dL (8.5-10.1); Chloride 100 mmol/L (98-107); Creatinine, Serum 0.62 mg/dL (0.55-1.02); EST Glomerular Filtration Rate 98 mL/min (>60); Est Glom Filt Rate - Afr Amer 119 mL/min (>60); Estimated Creatinine Clearance 49.74 ml/min; Glucose 90 mg/dL (74-106); Potassium 3.5 mmol/L (3.5-5.1); Sodium Level 129 mmol/L (136-145)
--- NOTE | 2023-10-29 08:50 | PN.HOSP_ITS ---
Reason for Visit Reason for Visit: Diagnoses Hypertensive crisis, unspecified (10/28/23) Acute (reversible) ischemia of large intestine, extent unspecified (10/28/23) Objective Data Objective Data Vital Signs: Vital Signs Temp Pulse Resp BP Pulse Ox O2 Del Method 97.6 F L 63 16 168/76 H 96 Room Air 10/29/23 04:35 10/29/23 04:35 10/29/23 04:35 10/29/23 04:35 10/29/23 08:07 10/29/23 08:07 Oxygen Delivery Method Room Air Weight: 154 lb 1.65 oz Body Mass Index (BMI) 31.1 Intake & Output: Intake and Output for Last 24 Hours 10/27/23 10/28/23 10/29/23 23:59 23:59 23:59 Intake Total 3400.00 / 3400.00 120 / 120 Balance 3400.00 / 3400.00 120 / 120 Lab / Micro Data 10/29/23 05:51 10/29/23 05:51 Labs: Laboratory Results - last 24 hr 10/28/23 15:15: Urine Color Yellow, Urine Clarity Clear, Urine pH 6.5, Ur Specific [place] 1.010, Urine Protein 30 H, Urine Glucose (UA) Normal, Urine Ketones 5 H, Urine Occult Blood Negative, Urine Nitrite Negative, Urine Bilirubin Negative, Urine Urobilinogen Normal, Ur Leukocyte Esterase Negative, Urine RBC 0 SEEN, Urine WBC 0-5 SEEN, Ur Squamous Epith Cells 0-5 SEEN, Urine Bacteria 0 SEEN, Urine Mucus 0 SEEN 10/29/23 05:51: WBC 3.8 L, RBC 3.41 L, Hgb 10.2 L, Hct 31.4 L, MCV 92.1, MCH 29.9, MCHC 32.5, RDW Std Deviation 44.5 H, RDW Coeff of Lucía 13.2, Plt Count 242, MPV 9.8, Immature Gran % (Auto) 0.300, Neut % (Auto) 39.8 L, Lymph % (Auto) 44.7 H, [place] % (Auto) 10.1 H, Eos % (Auto) 4.0, Baso % (Auto) 1.1 H, Absolute Neuts (auto) 1.5 L, Absolute Lymphs (auto) 1.68, Nucleated RBC % 0, Sodium 129 L, Potassium 3.5, Chloride 100, Carbon Dioxide 26.0, Anion Gap 3 L, B UN 8, Creatinine 0.62, Estim Creat Clear Calc 49.74, Est GFR (MDRD) Af Amer 119, Est GFR (MDRD) Non-Af 98, BUN/Creatinine Ratio 12.9, Glucose 90, Calcium 8.1 L, TSH 1.00 Physical Exam Narrative Seen and examined Patient had a small/tiny bowel movement. Started on MiraLAX and prune juice. Abdominal pain has resolved. No chest pain. General: Alert, Oriented x3, Cooperative HEENT: Atraumatic, PERRLA, EOMI, Normocephalic Oral: Oral mucosa dry. No Gingival or Mucosal Lesions/ Ulcerations Neck: Supple, No JVD, Negative Carotid Bruits Chest wall/Lungs: Air entry diminished in bilateral lung bases. No crepitation/rhonchi Cardiovascular: Regular rate, Regular Rhythm, Normal S1, Normal S2, systolic murmur present. Abdomen: Bowel Sounds Present, Soft, no tenderness/rebound tenderness. No distention. No guarding/rigidity. : No dysuria. No renal angle tenderness. No suprapubic tenderness. Extremities: No edema, Capillary Refill Less than 3 Seconds Skin: No rashes, No breakdown Musculoskeletal: No Tenderness to Palpation of Joints or Extremities Neurological: Cranial nerves II-XII grossly intact, DTR 2+/4. No acute focal neurological deficit. Psych/Mental Status: Normal Affect, Appropriate. Assessment & Plan Assessment/Plan (1) Acute ischemic colitis: (2) Hypertensive crisis: PLAN: Plan This is 78-year-old female being admitted for lower chest pain and abdominal pain which seems from acute ischemic colitis. 1. Acute abdominal pain, sudden onset most likely acute ischemic mesenteric colitis: Patient is being admitted in PCU. Patient was evaluated by surgeon. She she had mild nausea and vomiting about 3 days ago on Monday. Mild dehydration continue IV fluid support. Monitor intake and output. Pain controlled. No indication for antibiotic. Patient might need evaluation by vascular surgeon for stenotic celiac artery and mesenteric artery as mentioned above was not seem acute emergency. CT abdomen pelvis with IV contrast individually reviewed. It shows severe calcification and stenosis of multiple arterial origins specially celiac axis, high-grade stenosis at origin of throughout most of SMA. Superbly calcified proximal renal arteries with bilateral stents. Prominent gas in the small bowel loops mostly due to small bowel wall thickening. Relatively abrupt luminal narrowing and mild wall thickening of the distal transverse colon to splenic flexure to proximal sigmoid, subtle ischemic colitis 10/28: Abdominal pain has resolved. Discussed with the surgeon. Started on Soft diet. Hyponatremia: Mild hypovolemic hyponatremia: Serum sodium is 132. Patient on IV fluid normal saline. Patient also on sodiums tablet at home but will hold it until verified with pharmacy 10/28: Patient's sodium is low 129, K3.5, low normal anion gap 3. Verified with the pharmacist that patient was given prescription of sodium tablet total 5 g/day by PCP Dr. Hansen. On her home med list, total 3 g daily and I will continue same, 2 g in the morning and 1 g at night. Potassium replacement also ordered. 2. Lower chest pain seems migration from abdominal pain: 2 serial troponins are negative.12-lead EKG individually reviewed normal sinus rhythm at 64 bpm, QTc 430 ms, QRS 82 ms WA 180 ms. 10/28: ACS ruled out. No further chest pain since yesterday. 3. Hypertensive crisis: BP in ED was 238/88: Will keep her blood pressure about 160-170 systolic for next 2 to 3 days to avoid hypoperfusion of vital organ. 4. CAD status postcardiac stent in 2019, bilateral renal artery stent, PAD: Patient has advanced history of peripheral arterial disease. Since patient also has history of CVA in the past but no obvious residual deficit. Home cardiac medications continued 5. Other comorbidities include anxiety and depression, GERD, debility, history of vaginal wall prolapse and pessary maintenance: Home medications reconciliation done. Living will/advanced directive/end of life care: Patient does have living will or advanced directive. Her niece is power of assistant prosecuting attorney for health. After discussion of benefits/risks procedures involved with full code, DNR CC arrest and DNR CC, the patient opted for DNR CC arrest with no intubation Patient doesn't want artificial life support including intubation, tube feed, ventilator and/chest compression, central venous catheter, vasopressor and DC shock if needed Total time spent in [id number] encounter in discussion of advanced directive 17 minutes. Clinical Impression(s) from Imaging Studies Abdomen/Pelvis CT 10/28/23 05:22 IMPRESSION: 1. Severe calcifications and stenosis of multiple arterial origins, especially at the celiac axis but there is a small enhancing common trunk supplying hepatic artery and gastroduodenal artery. 2. Severe calcification and high-grade apparent stenosis at the origin and throughout most of the SMA, there are some very small but enhancing branches more distally. 3. Superiorly calcified proximal renal arteries with bilateral stents. The kidneys enhance symmetrically. 4. Mildly prominent gas in small bowel loops, no significant small bowel wall thickening. 5. Large hiatal hernia. 6. Relatively abrupt luminal narrowing and mild wall thickening from distal transverse colon-splenic flexure to the proximal sigmoid. Suspicion of at least subtle ischemic colitis. Correlate with any lower GI bleeding in left upper abdomen pain. 7. Nonvisualized appendix. Pessary. 8. Mildly prominently distended gallbladder with slightly dense dependent material, likely tiny stones. Dilated extrahepatic common duct without visible filling defect. Consider MRCP if there is elevated bilirubin. Consider ultrasound if acute cholecystitis is suspected. 9. Degenerative spine changes and demineralization. At least moderate to high-grade apparent spinal stenosis due to multifactorial degenerative change and mild spondylolisthesis at L4-5. Electronically Signed: Che aFjardo MD at 7:05 EDT , ADDENDUM: 10/28/23 0719 IMPRESSION: 1. Severe calcifications and stenosis of multiple arterial origins, especially at the celiac axis but there is a small enhancing common trunk supplying hepatic artery and gastroduodenal artery. 2. Severe calcification and high-grade apparent stenosis at the origin and throughout most of the SMA, there are some very small but enhancing branches more distally. 3. Superiorly calcified proximal renal arteries with bilateral stents. The kidneys enhance symmetrically. 4. Mildly prominent gas in small bowel loops, no significant small bowel wall thickening. 5. Large hiatal hernia. 6. Relatively abrupt luminal narrowing and mild wall thickening from distal transverse colon-splenic flexure to the proximal sigmoid. Suspicion of at least subtle ischemic colitis. Correlate with any lower GI bleeding in left upper abdomen pain. 7. Nonvisualized appendix. Pessary. 8. Mildly prominently distended gallbladder with slightly dense dependent material, likely tiny stones. Dilated extrahepatic common duct without visible filling defect. Consider MRCP if there is elevated bilirubin. Consider ultrasound if acute cholecystitis is suspected. 9. Degenerative spine changes and demineralization. At least moderate to high-grade apparent spinal stenosis due to multifactorial degenerative change and mild spondylolisthesis at L4-5. N.B. : The above Results were Read Back by Che Fajardo MD to Tiffanie Silverman MD, and understanding confirmed on 10/28/2023 07:12:09 (ET). Electronically Signed: Che Fajardo MD at 7:05 EDT , Chest X-Ray 10/28/23 05:28 IMPRESSION: No convincing acute intrathoracic abnormality. Hiatal hernia. Old granulomatous disease. Electronically Signed: Che Fajardo MD at 7:08 EDT , Charges/Coding Visit Charges Inpatient E&M: 35240 Subs Hosp L2
--- NOTE | 2023-10-29 09:07 | PN.SURG_ITS ---
Subjective Subjective Patient seen and examined during AM rounds. She is found sitting out of bed in the chair finishing all of her breakfast tray. She reports that she has been able to consume all of her trays without any increased abdominal discomfort. She does note that there is some tightness in her upper abdomen which she said just feels like she may be ready to have a bowel movement. She denies any nausea. In fact, she declares she has an appetite for something more substantial. Objective Data Objective Data Vital Signs: Vital Signs Temp Pulse Resp BP Pulse Ox O2 Del Method 97.6 F L 63 16 168/76 H 96 Room Air 10/29/23 04:35 10/29/23 04:35 10/29/23 04:35 10/29/23 04:35 10/29/23 08:07 10/29/23 08:07 Oxygen Delivery Method Room Air Weight: 154 lb 1.65 oz Body Mass Index (BMI) 31.1 Intake & Output: Intake and Output for Last 24 Hours 10/27/23 10/28/23 10/29/23 23:59 23:59 23:59 Intake Total 3400.00 / 3400.00 120 / 120 Balance 3400.00 / 3400.00 120 / 120 Lab / Micro Data 10/29/23 05:51 10/29/23 05:51 Labs: Laboratory Results - last 24 hr 10/28/23 15:15: Urine Color Yellow, Urine Clarity Clear, Urine pH 6.5, Ur Specific [place] 1.010, Urine Protein 30 H, Urine Glucose (UA) Normal, Urine Ketones 5 H, Urine Occult Blood Negative, Urine Nitrite Negative, Urine Bilirubin Negative, Urine Urobilinogen Normal, Ur Leukocyte Esterase Negative, Urine RBC 0 SEEN, Urine WBC 0-5 SEEN, Ur Squamous Epith Cells 0-5 SEEN, Urine Bacteria 0 SEEN, Urine Mucus 0 SEEN 10/29/23 05:51: WBC 3.8 L, RBC 3.41 L, Hgb 10.2 L, Hct 31.4 L, MCV 92.1, MCH 29.9, MCHC 32.5, RDW Std Deviation 44.5 H, RDW Coeff of Lucía 13.2, Plt Count 242, MPV 9.8, Immature Gran % (Auto) 0.300, Neut % (Auto) 39.8 L, Lymph % (Auto) 44.7 H, [place] % (Auto) 10.1 H, Eos % (Auto) 4.0, Baso % (Auto) 1.1 H, Absolute Neuts (auto) 1.5 L, Absolute Lymphs (auto) 1.68, Nucleated RBC % 0, Sodium 129 L, Potassium 3.5, Chloride 100, Carbon Dioxide 26.0, Anion Gap 3 L, BUN 8, Creatinine 0.62, Estim Creat Clear Calc 49.74, Est GFR (MDRD) Af Amer 119, Est GFR (MDRD) Non-Af 98, BUN/Creatinine Ratio 12.9, Glucose 90, Calcium 8.1 L, TSH 1.00 Physical Exam Const oriented x3 and no apparent distress Resp normal respiratory effort GI GI Narrative: Nondistended, soft, nontender to palpation x 4 quadrants Assessment & Plan Assessment/Plan (1) Acute ischemic colitis: PLAN: Patient is a 78-year-old female with extensive atherosclerotic disease who presents with complaints of acute onset abdominal and chest pain with probable source being acute ischemic colitis. Hospital day 2 patient appears to be improved with no complaints of abdominal discomfort following advancement to clear liquid diet yesterday. She has an improved appetite and her abdominal exam is improved. Thus, I recommend initiating a gentle bowel regimen and advancement to regular diet. It is noted that patient exhibits hyponatremia today so we will look to limit her free water and have recommended considering addition of salt tabs. Case discussed with primary hospitalist, Dr. Gutierrez. Will continue to follow Celestine Prater MD General Surgery Endocrine Surgery Pager: [facility] [address] [place] [address], Outpatient [place], [address] [place] [id number] Office: [phone] Charges/Coding Visit Charges Inpatient E&M: 87641 Subs Hosp L2
[2023-10-29] MEDS: Ascorbic Acid 500 MG Tablet PO (10:46)
[2023-10-29] MEDS: Carvedilol 12.5 MG Tablet PO ×2 (10:46→16:36)
[2023-10-29] MEDS: Aspirin E.C. 81 MG Tablet PO (10:46)
[2023-10-29] MEDS: Cholecalciferol (VIT D3) 25 MCG TABLET (1,000 UNITS) PO (10:46)
[2023-10-29] MEDS: Loratadine 10 MG Tablet PO (10:46)
[2023-10-29] MEDS: Ezetimibe 10 MG Tablet PO (10:46)
[2023-10-29] MEDS: busPIRone 5 MG Tablet PO ×2 (10:46→21:17)
[2023-10-29] MEDS: Polyethylene Glycol 3350 17 GM PACKET PO ×2 (11:00→21:16)
[2023-10-29] MEDS: Potassium Chloride Oral Tablet 20 MEQ 40 MEQ PO (11:00)
[2023-10-29] MEDS: Sodium Chloride 1 GM Tablet 2 GM PO (11:01)
[2023-10-29] MEDS: Losartan Potassium 50 MG Tablet PO (11:07)
[2023-10-29] MEDS: Pantoprazole Sodium 40 MG in 0.9% Normal Saline (100mL MB+) 100 ML 330 MG IV (11:15)
[2023-10-29] MEDS: Sodium Chloride 1 GM Tablet PO (21:16)
[2023-10-29] MEDS: ALPRAZolam 0.5 MG Tablet PO (21:17)
[2023-10-30 05:00] VITALS: BP 150/73; PULSE 68; RESP 18; TEMP 36.1; O2SAT 98
[2023-10-30 05:17] VITALS: BP 150/73; PULSE 68
[2023-10-30 07:05] LABS: Absolute Lymphocyte Count 1.82 X10^3/uL (0.83-4.51); Absolute Neutrophil Count 2.1 X10^3/uL (2.0-7.7); Basophil# 0.04 X10^3/uL; Basophil% 0.8 % (0-1); Eosinophils% 4.1 % (0-5); Hematocrit 32.6 % (37-47); Hemoglobin 10.7 g/dL (12.0-15.0); Lymphocyte # 1.82 X10^3/ul (0.83-4.51); Lymphocyte % 37.4 % (19-41); Mean Corp Hgb Conc 32.8 g/dL (32-36); Mean Corpuscular Hgb 30.3 pg (27.0-32.0); Mean Corpuscular Volume 92.4 fL (81-99); Mean Platelet Vol. 9.8 fl (6.2-12.0); Monocyte# 0.67 X10^3/uL; Monocyte% 13.8 % (0-10); NRBC Flagged by Analyzer 0 % (0-5); Neutrophil # 2.13 X10^3/uL (2.7-7.7); Neutrophil % 43.7 % (47-70); Platelet Count 247 K/mm3 (150-450); RBC Distribution Width CV 13.2 % (11.6-14.6); RBC Distribution Width SD 44.6 fl (35.1-43.9); Red Blood Count 3.53 M/mm3 (4.2-5.4); White Blood Count 4.9 K/mm3 (4.4-11.0)
[2023-10-30 07:30] LABS: Anion Gap 4 (5-15); BUN 10 mg/dL (7-18); BUN/Creat Ratio 15.5 RATIO (10-20); Calcium,Total 8.7 mg/dL (8.5-10.1); Chloride 102 mmol/L (98-107); Creatinine, Serum 0.65 mg/dL (0.55-1.02); EST Glomerular Filtration Rate 94 mL/min (>60); Est Glom Filt Rate - Afr Amer 114 mL/min (>60); Estimated Creatinine Clearance 49.74 ml/min; Glucose 90 mg/dL (74-106); Potassium 4.1 mmol/L (3.5-5.1); Sodium Level 133 mmol/L (136-145)
--- NOTE | 2023-10-30 07:40 | DCINST_ITS ---
Discharge Instructions Diet Discharge Diet: No restrictions (Soft diet advanced to regular diet.), No Fluid Restriction and - (Advised 2 L of oral fluid/water every day) Activity Discharge Activity: Return to Normal Activity Weight Bearing Status: Weight bearing as tolerated Dressing / Incision Call your doctor if you observe: Fever of 101 or Higher, Coldness, Increased Pain, Numbness or Tingling, Change in Color, Inability to urinate, Inability to have a bowel movement, Using more than 1 pad per hour, Shortness of breath, Dizziness, Fainting spells, Swelling in the ankles, Chest pain, Prolonged h iccupping, Increased palpitations (irregular heartbeat) and Calf discomfort Follow Up Care When: IN 2 WEEKS Test Results: Test results from this visit will be discussed in further detail at your follow- up appointment, if applicable. Discharge Plan Admission Admit Date/Time: 10/28/23 07:41 Primary Reason for Your Visit: Acute abdominal pain/mesenteric ischemia Attending Provider: Tani Gutierrez Primary Care Provider: Aracely Blanc Consulting Providers: Celestine Prater Instructions Additional Instructions / Restrictions: Advised keep hydrated about 2 L fluid /day. Keep blood pressure between systolic 130-150 to avoid hypoperfusion of vital organs. Advised not to stand up or walk for 1 hour after taking hydralazine. Discharge Orders/Prescriptions Prescriptions: New sennosides-docusate sodium [Stool Softener-Stimulant Laxat] 8.6-50 mg Tablet 2 tab PO BID PRN PRN (Reason: Constipation) Qty: 0 0RF Rx Instructions: Available crat-snp-iatbhuq polyethylene glycol 3350 [Miralax] 17 gram/dose powder 17 g PO DAILY PRN (Reason: constipation) 30 Days Qty: 510 0RF Continued aspirin 81 mg tablet,delayed release (DR/EC) 81 mg PO DAILY hydralazine 25 mg tablet 25 mg PO TID cholecalciferol (vitamin D3) 25 mcg (1,000 unit) capsule 25 mcg PO DAILY ascorbic acid (vitamin C) 500 mg Tablet 500 mg PO DAILYCM 30 Days Qty: 30 0RF buspirone 5 mg tablet 5 mg PO BID acetaminophen 500 mg Tablet 1,000 mg PO Q8H PRN (Reason: pain) estradiol 0.01 % (0.1 mg/gram) cream vaginal sodium chloride 1,000 mg tablet,soluble 1,000 mg PO .COMPLEX Patient Comments: pt unsure of dosage Rx Instructions: 1,000 mg orally; take 2 tablets in the morning, 1 tablet at night. ezetimibe 10 mg tablet See Rx Instructions .ROUTE .COMPLEX Qty: 30 6RF Dose Instruction: TAKE 1 TABLET BY MOUTH DAILY Rx Instructions: TAKE 1 TABLET BY MOUTH DAILY losartan 50 mg tablet 50 mg PO BID Qty: 180 1RF levocetirizine 5 mg tablet 5 mg PO DAILY Qty: 90 0RF pantoprazole 40 mg tablet,delayed release (DR/EC) 40 mg PO DAILY Qty: 90 0RF potassium chloride 20 mEq tablet extended release See Rx Instructions .ROUTE .COMPLEX Qty: 90 0RF Dose Instruction: TAKE 1 TABLET BY MOUTH ONCE DAILY Patient Comments: pt unsure on dosage Rx Instructions: TAKE 1 TABLET BY MOUTH ONCE DAILY alprazolam [Xanax] 0.5 mg tablet 0.5 mg PO DAILY PRN (Reason: anxiety) Qty: 15 0RF alendronate [Fosamax] 70 mg tablet 70 mg PO QWEEK Qty: 12 0RF Patient Comments: per pt hasn't started yet, just picked up prescription and was going to start Friday 10/27. Changed furosemide 20 mg Tablet 20 mg PO DAILY PRN (Reason: LEG Swelling) Qty: 30 0RF carvedilol 12.5 mg tablet 25 mg PO BID Qty: 180 3RF Rx Instructions: Hold for heart less than 50 or systolic blood pressure less than 130 mmHg. Referrals / Follow Up: Aracely Blanc MD [Primary Care Provider] - Kevin Rain MD [Med Staff - Active Staff] - Within 2 Weeks (To evaluation for stenotic celiac axis and SMA. Recent acute mesenteric ischemia) Kip Sanabria MD [Med Staff - Consulting] - Within 1 Month (For hyponatremia) Celestine Prater MD [Med Staff - Active Staff] - Within 1 Month Disposition Disposition (needs filled in before D/C Order can be placed): Home, Self Care
--- NOTE | 2023-10-30 07:46 | PN.SURG_ITS ---
Subjective Subjective Patient seen and examined during AM rounds. She is found resting in bed. She shares that she did not sleep well overnight as she had hoped. She states that she had to awaken frequently to urinate. She denies any abdominal pain and does confirm that she had 2 small bowel movements overnight. She also adds that she enjoyed a meal of lasagna for dinner. Objective Data Objective Data Vital Signs: Vital Signs Temp Pulse Resp BP Pulse Ox O2 Del Method 96.9 F L 68 18 150/73 H 98 Room Air 10/30/23 05:00 10/30/23 05:17 10/30/23 05:00 10/30/23 05:17 10/30/23 05:00 10/30/23 05:00 Oxygen Delivery Method Room Air Weight: 154 lb 1.65 oz Body Mass Index (BMI) 31.1 Intake & Output: Intake and Output for Last 24 Hours 10/28/23 10/29/23 10/30/23 23:59 23:59 23:59 Intake Total 3400.00 / 3400.00 2430 / 3430 1450 / 1450 Balance 3400.00 / 3400.00 2430 / 3430 1450 / 1450 Lab / Micro Data 10/30/23 06:23 10/30/23 06:23 Labs: Laboratory Results - last 24 hr 10/30/23 06:23: WBC 4.9, RBC 3.53 L, Hgb 10.7 L, Hct 32.6 L, MCV 92.4, MCH 30.3, MCHC 32.8, RDW Std Deviation 44.6 H, RDW Coeff of Lucía 13.2, Plt Count 247, MPV 9.8, Immature Gran % (Auto) 0.200, Neut % (Auto) 43.7 L, Lymph % (Auto) 37.4, [place] % (Auto) 13.8 H, Eos % (Auto) 4.1, Baso % (Auto) 0.8, Absolute Neuts (auto) 2.1, Absolute Lymphs (auto) 1.82, Nucleated RBC % 0, Sodium 133 L, Potassium 4.1, Chloride 102, Carbon Dioxide 27.0, Anion Gap 4 L, BUN 10, Creatinine 0.65, Estim Creat Clear Calc 49.74, Est GFR (MDRD) Af Amer 114, Est GFR (MDRD) Non-Af 94, BUN/Creatinine Ratio 15.5, Glucose 90, Calcium 8.7 Physical Exam Const oriented x3 and no apparent distress Resp normal respiratory effort GI GI Narrative: Nondistended, soft, nontender to palpation x 4 quadrants Assessment & Plan Assessment/Plan (1) Acute ischemic colitis: PLAN: Patient is a 78-year-old female with extensive atherosclerotic disease who presents with complaints of acute onset abdominal and chest pain with probable source being acute ischemic colitis. Hospital day 3 patient is further improved and is tolerating a regular diet without abdominal discomfort. Her abdominal exam remains benign and she c onfirms return of bowel function. Further, her sodium has improved to 133 with adjustments to her fluids and addition of salt tabs. From a surgical standpoint patient could be eligible for discharge later today and has been instructed to improve her fluid intake as I believe her admission was precipitated by low flow state. Recommend continued bowel regimen as well. 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 Celestine Prater MD General Surgery Endocrine Surgery Pager: [facility] [address] [place] [address], [address] [place] [address] Office: [phone] Charges/Coding Visit Charges Inpatient E&M: 59210 Subs Hosp L2
[2023-10-30 07:50] VITALS: BP 146/70; PULSE 70; RESP 16; TEMP 36.4; O2SAT 95
--- NOTE | 2023-10-30 07:51 | DS.PCM_ITS ---
Providers Date of Admission: 10/28/23 Date of Discharge: 10/30/23 Primary Care Physician: Dr. Aracely Blanc MD Consultations 10/28/23 07:05 Consult: General Surgery Routine Consulting Provider: Celestine Prater Reason for Consult: Acute ischemic colitis. EMERGENT Consult: No MD Notified: Yes Date Notified: 10/28/23 Time Notified: 13:24 Method of Notification: ED Physician Initiated Reason For Visit: ABDOMINAL AND CHEST PAIN/SSCHEMIA COLITIS? Diagnosis Discharge Diagnosis (1) Acute ischemic colitis: Status: Acute Code(s): K55.039 - Acute (reversible) ischemia of large intestine, extent unspecified Plan This is 78-year-old female being admitted for lower chest pain and abdominal pain which seems from acute ischemic colitis. 1. Acute abdominal pain, sudden onset most likely acute ischemic mesenteric colitis: Patient is being admitted in PCU. Patient was evaluated by surgeon. She she had mild nausea and vomiting about 3 days ago on Monday. Mild dehydration continue IV fluid support. Monitor intake and output. Pain controlled. No indication for antibiotic. Patient might need evaluation by vascular surgeon for stenotic celiac artery and mesenteric artery as mentioned above was not seem acute emergency. CT abdomen pelvis with IV contrast individually reviewed. It shows severe calcification and stenosis of multiple arterial origins specially celiac axis, high-grade stenosis at origin of throughout most of SMA. Superbly calcified proximal renal arteries with bilateral stents. Prominent gas in the small bowel loops mostly due to small bowel wall thickening. Relatively abrupt luminal narrowing and mild wall thickening of the distal transverse colon to splenic flexure to proximal sigmoid, subtle ischemic colitis 10/28: Abdominal pain has resolved. Discussed with the surgeon. Started on Soft diet. 10/29: Patient tolerating diet good.Patient was evaluated by the surgeon. We agreed for the discharge. I talked to Dr. Kevin Huston, the vascular surgeon and he agreed to see the patient in a week time to evaluate for celiac axis and SMA stenosis/PCI or stenting Hyponatremia: Mild hypovolemic hyponatremia: Serum sodium is 132. Patient on IV fluid normal saline. Patient also on sodiums tablet at home but will hold it u ntil verified with pharmacy 10/28: Patient's sodium is low 129, K3.5, low normal anion gap 3. Verified with the pharmacist that patient was given prescription of sodium tablet total 5 g/day by PCP Dr. Hansen. On her home med list, total 3 g daily and I will continue same, 2 g in the morning and 1 g at night. Potassium replacement also ordered. 10/29: Sodium is 133. Patient follows Dr. 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 2. Lower chest pain seems migration from abdominal pain: 2 serial troponins are negative.12-lead EKG individually reviewed normal sinus rhythm at 64 bpm, QTc 430 ms, QRS 82 ms TX 180 ms. 10/28: ACS ruled out. No further chest pain since yesterday. 3. Hypertensive crisis: BP in ED was 238/88: Will keep her blood pressure about 160-170 systolic for next 2 to 3 days to avoid hypoperfusion of vital organ. 4. CAD status postcardiac stent in 2019, bilateral renal artery stent, PAD: Patient has advanced history of peripheral arterial disease. Since patient also has history of CVA in the past but no obvious residual deficit. Home cardiac medications continued 5. Other comorbidities include anxiety and depression, GERD, debility, history of vaginal wall prolapse and pessary maintenance: Home medications reconciliation done. Discharge medication reconciliation done. Discharge follow-up instructions completed. Discharge process discussed with the patient and all questions were answered to patient's satisfaction. Follow with PCP in 1 to 2 weeks Total time spent, exact 35 minutes on discharge meds reconciliation, examination, coordination of care with nurses and ancillary staff, review of imaging and blood test and discussion with the patient on follow-up instructions. Living will/advanced directive/end of life care: Patient does have living will or advanced directive. Her niece is power of civil attorney for health. After di scussion of benefits/risks procedures involved with full code, DNR CC arrest and DNR CC, the patient opted for DNR CC arrest with no intubation Patient doesn't want artificial life support including intubation, tube feed, ventilator and/chest compression, central venous catheter, vasopressor and DC shock if needed Clinical Impression(s) from Imaging Studies Abdomen/Pelvis CT 10/28/23 05:22 IMPRESSION: 1. Severe calcifications and stenosis of multiple arterial origins, especially at the celiac axis but there is a small enhancing common trunk supplying hepatic artery and gastroduodenal artery. 2. Severe calcification and high-grade apparent stenosis at the origin and throughout most of the SMA, there are some very small but enhancing branches more distally. 3. Superiorly calcified proximal renal arteries with bilateral stents. The kidneys enhance symmetrically. 4. Mildly prominent gas in small bowel loops, no significant small bowel wall thickening. 5. Large hiatal hernia. 6. Relatively abrupt luminal narrowing and mild wall thickening from distal transverse colon-splenic flexure to the proximal sigmoid. Suspicion of at least subtle ischemic colitis. Correlate with any lower GI bleeding in left upper abdomen pain. 7. Nonvisualized appendix. Pessary. 8. Mildly prominently distended gallbladder with slightly dense dependent material, likely tiny stones. Dilated extrahepatic common duct without visible filling defect. Consider MRCP if there is elevated bilirubin. Consider ultrasound if acute cholecystitis is suspected. 9. Degenerative spine changes and demineralization. At least moderate to high-grade apparent spinal stenosis due to multifactorial degenerative change and mild spondylolisthesis at L4-5. Electronically Signed: Che Fajardo MD at 7:05 EDT Reading Location ID and State: [facility] / [place] Tel , Service support , ADDENDUM: 10/28/23 0740 IMPRESSION: 1. Severe calcifications and stenosis of multiple arterial origins, especially at the celiac axis but there is a small enhancing common trunk supplying hepatic artery and gastroduodenal artery. 2. Severe calcification and high-grade apparent stenosis at the origin and throughout most of the SMA, there are some very small but enhancing branches more distally. 3. Superiorly calcified proximal renal arteries with bilateral stents. The kidneys enhance symmetrically. 4. Mildly prominent gas in small bowel loops, no significant small bowel wall thickening. 5. Large hiatal hernia. 6. Relatively abrupt luminal narrowing and mild wall thickening from distal transverse colon-splenic flexure to the proximal sigmoid. Suspicion of at least subtle ischemic colitis. Correlate with any lower GI bleeding in left upper abdomen pain. 7. Nonvisualized appendix. Pessary. 8. Mildly prominently distended gallbladder with slightly dense dependent material, likely tiny stones. Dilated extrahepatic common duct without visible filling defect. Consider MRCP if there is elevated bilirubin. Consider ultrasound if acute cholecystitis is suspected. 9. Degenerative spine changes and demineralization. At least moderate to high-grade apparent spinal stenosis due to multifactorial degenerative change and mild spondylolisthesis at L4-5. N.B. : The above Results were Read Back by Che Fajardo MD to Tiffanie Silverman MD, and understanding confirmed on 10/28/2023 07:12:09 (ET). Electronically Signed: Che Fajardo MD at 7:05 EDT , Chest X-Ray 10/28/23 05:28 IMPRESSION: No convincing acute intrathoracic abnormality. Hiatal hernia. Old granulomatous disease. Electronically Signed: Che Fajardo MD at 7:08 EDT , Medications at Discharge Home Medications cholecalciferol (vitamin D3) 25 mcg (1,000 unit) capsule 25 mcg PO DAILY vit D3 04/09/23 ascorbic acid (vitamin C) 500 mg tablet 500 mg PO DAILYCM 30 days #30 tabs 04/12/23 aspirin 81 mg tablet,delayed release 81 mg PO DAILY heart 04/19/23 hydralazine 25 mg tablet 25 mg PO TID 04/19/23 ezetimibe 10 mg tablet See Rx Instructions .Route .COMPLEX #30 tabs 05/12/23 losartan 50 mg tablet 50 mg PO BID #180 tabs 06/21/23 levocetirizine 5 mg tablet 5 mg PO DAILY #90 tabs 07/24/23 pantoprazole 40 mg tablet,delayed release 40 mg PO DAILY acid reflux #90 tabs 10/02/23 potassium chloride 20 mEq tablet,extended release See Rx Instructions .Route .COMPLEX potassium #90 tabs 10/10/23 alendronate 70 mg tablet (Fosamax) 70 mg PO QWEEK #12 tabs 10/23/23 alprazolam 0.5 mg tablet (Xanax) 0.5 mg PO DAILY PRN anxiety #15 tabs 10/23/23 acetaminophen 500 mg tablet 1,000 mg PO Q8H PRN pain 10/28/23 buspirone 5 mg tablet 5 mg PO BID 10/28/23 estradiol 0.01% (0.1 mg/gram) vaginal cream vaginal 10/28/23 sodium chloride 1,000 mg soluble tablet 1,000 mg PO .COMPLEX supplement 10/28/23 carvedilol 12.5 mg tablet 25 mg (2 x 12.5 mg) PO BID bp #180 tabs 10/30/23 furosemide 20 mg tablet 20 mg PO DAILY PRN LEG Swelling #30 tabs 10/30/23 polyethylene glycol 3350 17 gram/dose oral powder (Miralax) 17 g PO DAILY PRN constipation 1 month #510 grams 10/30/23 sennosides 8.6 mg-docusate sodium 50 mg tablet (Stool Softener-Stimulant Laxative) 2 tab PO BID PRN PRN Constipation #0 tabs 10/30/23 Physical Exam Narrative Seen and examined Was started on MiraLAX and prune juice. Patient had a small bowel movement. Abdominal pain has resolved. No chest pain. Physical exam General: Alert, Oriented x3, Cooperative HEENT: Atraumatic, PERRLA, EOMI, Normocephalic Oral: Oral mucosa moist. No Gingival or Mucosal Lesions/ Ulcerations Neck: Supple, No JVD, Negative Carotid Bruits Chest wall/Lungs: Air entry diminished in bilateral lung bases. No crepitation/rhonchi Cardiovascular: Regular rate, Regular Rhythm, Normal S1, Normal S2, systolic murmur present. Abdomen: Bowel Sounds Present, Soft, no tenderness/rebound tenderness. No distention. No guarding/rigidity. : No dysuria. No renal angle tenderness. No suprapubic tenderness. Extremities: No edema, Capillary Refill Less than 3 Seconds Skin: No rashes, No breakdown Musculoskeletal: No Tenderness to Palpation of Joints or Extremities Neurological: Cranial nerves II-XII grossly intact, DTR 2+/4. No acute focal neurological deficit. Psych/Mental Status: Normal Affect, Appropriate. Weight / BMI Weight Weight: 154 lb 1.65 oz Body Mass Index (BMI) 31.1 ABG / Lab / Microbiology Data 10/30/23 06:23 10/30/23 06:23 Laboratory: Laboratory Results - last 24 hr 10/30/23 06:23: WBC 4.9, RBC 3.53 L, Hgb 10.7 L, Hct 32.6 L, MCV 92.4, MCH 30.3, MCHC 32.8, RDW Std Deviation 44.6 H, RDW Coeff of Lucía 13.2, Plt Count 247, MPV 9.8, Immature Gran % (Auto) 0.200, Neut % (Auto) 43.7 L, Lymph % (Auto) 37.4, Benson % (Auto) 13.8 H, Eos % (Auto) 4.1, Baso % (Auto) 0.8, Absolute Neuts (auto) 2.1, Absolute Lymphs (auto) 1.82, Nucleated RBC % 0, Sodium 133 L, Potassium 4.1, Chloride 102, Carbon Dioxide 27.0, Anion Gap 4 L, BUN 10, Creatinine 0.65, Estim Creat Clear Calc 49.74, Est GFR (MDRD) Af Amer 114, Est GFR (MDRD) Non-Af 94, BUN/Creatinine Ratio 15.5, Glucose 90, Calcium 8.7 D/C Instructions Discharge Diet: No restrictions (Soft diet advanced to regular diet.), No Fluid Restriction and - (Advised 2 L of oral fluid/water every day) Weight Bearing Status: Weight bearing as tolerated Call your doctor if you observe: Fever of 101 or Higher, Coldness, Increased Pain, Numbness or Tingling, Change in Color, Inability to urinate, Inability to have a bowel movement, Using more than 1 pad per hour, Shortness of breath, Dizziness, Fainting spells, Swelling in the ankles, Chest pain, Prolonged hiccupping, Increased palpitations (irregular heartbeat) and Calf discomfort When: IN 2 WEEKS Meaningful Use Info Meaningful Use Meaningful Use Diagnoses (Choose all that apply): None applicable Ischemic Stroke Statin Dosing Therapy Reference: STATIN DOSE THERAPY REFERENCE: * Patients > 75 years receive moderate or high dose statin therapy. * Patients 75 years or YOUNGER should receive HIGH intensity statin dose unless contraindicated. You will be required to document reason for non-treatment if statin daily dose does not meet guidelines. HIGH DOSE STATIN THERAPY DAILY Atorvastatin > than or = to 40 mg Rosuvastatin > than or = to 20 mg Amlodipine + Atorvastatin > than or = to 2.5/40 mg Ezetimibe + Simvastatin 10/80 mg Simvastatin 80mg Discharge Plan Admission Admit Date/Time: 10/28/23 07:41 Primary Reason for Your Visit: Acute abdominal pain/mesenteric ischemia Attending Provider: Tani Gutierrez Primary Care Provider: Aracely Blanc Consulting Providers: Celestine Prater Instructions Additional Instructions / Restrictions: Advised keep hydrated about 2 L fluid /day. Keep blood pressure between systo lic 130-150 to avoid hypoperfusion of vital organs. Advised not to stand up or walk for 1 hour after taking hydralazine. Hold antihypertensive medications, losartan, hydralazine, furosemide and carvedilol if SBP less than 130 mmHg. Furosemide changed to as needed for leg swelling Discharge Orders/Prescriptions Prescriptions: New sennosides-docusate sodium [Stool Softener-Stimulant Laxat] 8.6-50 mg Tablet 2 tab PO BID PRN PRN (Reason: Constipation) Qty: 0 0RF Rx Instructions: Available zafi-ijn-ychelyp polyethylene glycol 3350 [Miralax] 17 gram/dose powder 17 g PO DAILY PRN (Reason: constipation) 30 Days Qty: 510 0RF Continued aspirin 81 mg tablet,delayed release (DR/EC) 81 mg PO DAILY hydralazine 25 mg tablet 25 mg PO TID cholecalciferol (vitamin D3) 25 mcg (1,000 unit) capsule 25 mcg PO DAILY ascorbic acid (vitamin C) 500 mg Tablet 500 mg PO DAILYCM 30 Days Qty: 30 0RF buspirone 5 mg tablet 5 mg PO BID acetaminophen 500 mg Tablet 1,000 mg PO Q8H PRN (Reason: pain) estradiol 0.01 % (0.1 mg/gram) cream vaginal sodium chloride 1,000 mg tablet,soluble 1,000 mg PO .COMPLEX Patient Comments: pt unsure of dosage Rx Instructions: 1,000 mg orally; take 2 tablets in the morning, 1 tablet at night. ezetimibe 10 mg tablet See Rx Instructions .ROUTE .COMPLEX Qty: 30 6RF Dose Instruction: TAKE 1 TABLET BY MOUTH DAILY Rx Instructions: TAKE 1 TABLET BY MOUTH DAILY losartan 50 mg tablet 50 mg PO BID Qty: 180 1RF levocetirizine 5 mg tablet 5 mg PO DAILY Qty: 90 0RF pantoprazole 40 mg tablet,delayed release (DR/EC) 40 mg PO DAILY Qty: 90 0RF potassium chloride 20 mEq tablet extended release See Rx Instructions .ROUTE .COMPLEX Qty: 90 0RF Dose Instruction: TAKE 1 TABLET BY MOUTH ONCE DAILY Patient Comments: pt unsure on dosage Rx Instructions: TAKE 1 TABLET BY MOUTH ONCE DAILY alprazolam [Xanax] 0.5 mg tablet 0.5 mg PO DAILY PRN (Reason: anxiety) Qty: 15 0RF alendronate [Fosamax] 70 mg tablet 70 mg PO QWEEK Qty: 12 0RF Patient Comments: per pt hasn't started yet, just picked up prescription and was going to start Friday 10/27. Changed furosemide 20 mg Tablet 20 mg PO DAILY PRN (Reason: LEG Swelling) Qty: 30 0RF carvedilol 12.5 mg tablet 25 mg PO BID Qty: 180 3RF Rx Instructions: Hold for heart less than 50 or systolic blood pressure less than 130 mmHg. Referrals / Follow Up: Aracely Blanc MD [Primary Care Provider] - Kevin Rain MD [Med Staff - Active Staff] - Within 2 Weeks (To evaluation for stenotic celiac axis and SMA. Recent acute mesenteric ischemia) Kip Sanabria MD [Med Staff - Consulting] - Within 1 Month (For hyponatremia) Celestine Prater MD [Med Staff - Active Staff] - Within 1 Month Disposition Disposition (needs filled in before D/C Order can be placed): Home, Self Care Charges/Coding Visit Charges Inpatient E&M: 76907 Disch Hosp >30min
[2023-10-30] MEDS: Polyethylene Glycol 3350 17 GM PACKET PO (08:34)
[2023-10-30] MEDS: Carvedilol 12.5 MG Tablet PO (08:34)
[2023-10-30] MEDS: Potassium Chloride Oral Tablet 20 MEQ 40 MEQ PO (08:35)
[2023-10-30] MEDS: Aspirin E.C. 81 MG Tablet PO (08:35)
[2023-10-30] MEDS: Ezetimibe 10 MG Tablet PO (08:35)
[2023-10-30] MEDS: Ascorbic Acid 500 MG Tablet PO (08:35)
[2023-10-30] MEDS: Sodium Chloride 1 GM Tablet 2 GM PO (08:35)
[2023-10-30] MEDS: busPIRone 5 MG Tablet PO (08:36)
[2023-10-30] MEDS: Losartan Potassium 50 MG Tablet PO (08:37)
[2023-10-30] MEDS: Loratadine 10 MG Tablet PO (08:38)
[2023-10-30] MEDS: Cholecalciferol (VIT D3) 25 MCG TABLET (1,000 UNITS) PO (08:39)
[2023-10-30] MEDS: Pantoprazole Sodium 40 MG in 0.9% Normal Saline (100mL MB+) 100 ML 330 MG IV (08:46)
--- NOTE | 2023-10-30 09:39 | PHA.DC_ITS ---
Pharmacy [facility] has performed discharge medication reconciliation and counseling for this patient. The patient's discharge medication list was reviewed for discrepancies and discrepancies were resolved. The patient was counseled on the following discharge medications and changes in medications for homegoing were reviewed. The Reason for Use, instructions for use, and potential side effects were reviewed for all new medications. The patient's questions regarding all of their medications were answered. 1. Senna/docusate 2 tablets PO BID PRN constipation 2. Polyethylene glycol 17 grams PO daily PRN constipation The patient was able to verbally demonstrate an understanding of their discharge medications. Medications at Discharge Home Medications cholecalciferol (vitamin D3) 25 mcg (1,000 unit) capsule 25 mcg PO DAILY vit D3 04/09/23 ascorbic acid (vitamin C) 500 mg tablet 500 mg PO DAILYCM 30 days #30 tabs 04/12/23 aspirin 81 mg tablet,delayed release 81 mg PO DAILY heart 04/19/23 hydralazine 25 mg tablet 25 mg PO TID 04/19/23 ezetimibe 10 mg tablet See Rx Instructions .Route .COMPLEX #30 tabs 05/12/23 losartan 50 mg tablet 50 mg PO BID #180 tabs 06/21/23 levocetirizine 5 mg tablet 5 mg PO DAILY #90 tabs 07/24/23 pantoprazole 40 mg tablet,delayed release 40 mg PO DAILY acid reflux #90 tabs 10/02/23 potassium chloride 20 mEq tablet,extended release See Rx Instructions .Route .COMPLEX potassium #90 tabs 10/10/23 alendronate 70 mg tablet (Fosamax) 70 mg PO QWEEK #12 tabs 10/23/23 alprazolam 0.5 mg tablet (Xanax) 0.5 mg PO DAILY PRN anxiety #15 tabs 10/23/23 acetaminophen 500 mg tablet 1,000 mg PO Q8H PRN pain 10/28/23 buspirone 5 mg tablet 5 mg PO BID 10/28/23 estradiol 0.01% (0.1 mg/gram) vaginal cream vaginal 10/28/23 sodium chloride 1,000 mg soluble tablet 1,000 mg PO .COMPLEX supplement 10/28/23 carvedilol 12.5 mg tablet 25 mg (2 x 12.5 mg) PO BID bp #180 tabs 10/30/23 furosemide 20 mg tablet 20 mg PO DAILY PRN LEG Swelling #30 tabs 10/30/23 polyethylene glycol 3350 17 gram/dose oral powder (Miralax) 17 g PO DAILY PRN constipation 1 month #510 grams 10/30/23 sennosides 8.6 mg-docusate sodium 50 mg tablet (Stool Softener-Stimulant Laxative) 2 tab PO BID PRN PRN Constipation #0 tabs 10/30/23
--- NOTE | 2023-10-30 09:45 | CASEMGMT ---
RN HIRAM Face to Face with patient for initial transition planning/care coordination assessment. RN CM introduced self and role at [facility]. Patient sitting in chair, alert and oriented. Patient willing to participate in assessment and is able to answer all questions appropriately. Care providers, pharmacy, and demographics verified. PCP: [place] Specialists: RICH, cardiology; Daniele, grommet machine operator Preferred Pharmacy: [facility] Insurance: [employer] Prescription Benefit: yes Living Will/HPOA: yes, niece Chantelle De Oliveira LNOK: niece, granddaughter Living Arrangements: Patient lives with granddaughter in a single story condo with no steps to enter. Patient states she is independent at home. Transportation: self, granddaughter, niece DME/HHC: Patient states she has shower chair, BSC, cane, walker, and grab bars at home. Patient has had [facility] HHC in the past. No previous SNF. Patient wishes to discharge home, denies need for home health at this time. Patient states she has no further needs or concerns at this time. CM to follow for discharge planning needs that may arise. Disposition Plan: Patient to discharge home with family support and follow-up plans in place. Lachelle HAMILTON, RN, CM
[2023-10-30 15:23] VITALS: BP 146/70; PULSE 70
--- NOTE | 2023-10-30 15:42 | CHAPLAIN ---
Type of Pastoral Visit _x__ Initial Visit ___ Follow-up Visit ___ On-call Visit ___ General Patient Visit ___ Spiritual Assessment ___ Family Conference ___ Bereavement ___ Rapid Response ___ Code Blue ___ Other (describe below) Pastoral Care Referral From _x__ Patient ___ Family ___ Nurse ___ Physician ___ Refrigeration Person ___ Settlement Clerk ___ Other (describe below) Sacrament/Intervention _x__ Active listening ___ Anointing ___ Adventist ___ Bereavement ___ Communion ___ Leeann exploration ___ ___ Life review _x__ Prayer ___ Reconciliation ___ Sacrament of Sick ___ Supportive presence ___ Wedding ___ Other (describe below) Pastoral Comments patient reports on her health and what has happened since her last hospitalization; pt is open to presence and prayers and expresses her thanks for spiritual care
== END 2023-10-30 15:30 | disposition home or self-care (01) | DRG 394 ==
LOC: ED 07:29 → PCU 08:07
PROVIDERS: Admitting Provider Internal Medicine; Emergency Provider Emergency Medicine; PCP Internal Medicine; Visit Provider Internal Medicine
DX: K55.039 Acute (reversible) ischemia of large intestine, extent unspecified (principal); E87.1 Hypo-osmolality and hyponatremia; I16.9 Hypertensive crisis, unspecified; N18.9 Chronic kidney disease, unspecified; I12.9 Hypertensive chronic kidney disease with stage 1 through stage 4 chronic kidney disease, or unspecified chronic kidney disease; F32.A Depression, unspecified; I73.9 Peripheral vascular disease, unspecified; I25.10 Atherosclerotic heart disease of native coronary artery without angina pectoris; K21.9 Gastro-esophageal reflux disease without esophagitis; F41.9 Anxiety disorder, unspecified; R53.81 Other malaise; Z95.5 Presence of coronary angioplasty implant and graft; Z79.83 Long term (current) use of bisphosphonates; Z79.82 Long term (current) use of aspirin; Z79.899 Other long term (current) drug therapy; Z86.16 Personal history of COVID-19; Z86.73 Personal history of transient ischemic attack (TIA), and cerebral infarction without residual deficits; Z66 Do not resuscitate
CPT/HCPCS: 36415; 71045; 74177; 80048; 80053; 81001; 83605; 83690; 83735; 84443; 84484; 85025; 93005; 94668; 97116; 97162; 97165; 97530; 97535; 99252; 99285; J7030; Q9967; A4216; G0463; J2405

== ENCOUNTER → 2023-11-24 | Outpatient (CLI) | payer MEDICARE, SELFPAY ==
[2021-06-28 09:37] VITALS: BMI 34.1
--- NOTE | 2023-11-24 13:28 | CT_ITS ---
INDICATION: Diffuse abdominal pain EXAMINATION: CTA abdomen and pelvis -with contrast TECHNIQUE: Routine abdominal CT angiogram protocol was performed with IV contrast. MIP images provided. A radiation dose optimization technique was used for this scan. IV Contrast dosage and agent: 100 mL Isovue-370 contrast Radiation dose DLP mGy / cm. COMPARISON: 10/28/2023 FINDINGS: Lung bases: Chronic interstitial changes in the lung bases. There is a stable large retrocardiac hiatal hernia Liver: Normal. No bile ductal dilatation. Gallbladder: Normal. Spleen: Normal. Adrenal gland: Normal. Kidneys: No obstructive uropathy or suspicious solid renal lesion, stable exophytic 4 cm left renal cyst. No specific follow-up needed Pancreas:Normal. Bowel gas pattern: Nonobstructive. Extensive colonic diverticula without CT evidence of acute diverticulitis. Appendix: Appendix not identified. No inflammatory changes along the cecum present. Free air: None. Free fluid: None. Pelvis: Pelvic organs: No mass lesion noted. A pessary is noted Bone survey: No aggressive bony lesions. No acute fractures. Bony structures show degenerative change Adenopathy: No significant pathologic adenopathy detected. Other: None. Vascular: Dense peripheral calcifications are noted in the thoracic and abdominal aorta without aneurysm or dissection. There is dense atherosclerotic disease at the origin of the celiac axis and a celiac trunk is not visualized suggesting it is occluded. The SMA shows peripheral calcifications along its course but no evidence of occlusion is noted. There is no suspicious submucosal thickening or hyperdensity within the baltazar of the bowel to suspect ischemia. Peripheral calcifications also noted at the origin of the renal arteries. There is a normal bifurcation into the common iliac arteries. CT/CTA Abd/Pelvis W/WO Contrast IMPRESSION: Dense peripheral calcifications in the thoracic and abdominal aorta without aneurysm or dissection The celiac axis is not identified there are dense calcifications at its apparent origin suggesting it is occluded. This is unchanged from the previous study. Peripheral calcifications along the course of the SMA without occlusive disease. No suspicious solid organ abnormality Extensive colonic diverticulosis, no CT evidence of acute diverticulitis Chronic interstitial changes in the lung bases. Electronically Signed: Gustavo Gerardo MD at 15:03 EDT ,
== END | disposition home or self-care (01) ==
LOC: CT 13:27
PROVIDERS: PCP Internal Medicine; Referring Provider Physician Assistant; Visit Provider Physician Assistant
DX: K55.1 Chronic vascular disorders of intestine (principal)
CPT/HCPCS: 74174; Q9967

== ENCOUNTER → 2023-12-26 | Outpatient (CLI) | payer MEDICARE, SELFPAY ==
[2021-06-28 09:37] VITALS: BMI 34.1
--- NOTE | 2023-12-26 09:02 | RDU_ITS ---
Reason For Study: Renal artery stenosis s/p stents, SMA stenosis, Celiac occlusion Right Renal Artery Left Renal Artery Right renal artery ostium Left renal artery ostium 100.1/16.7 225.7/39.9 RSV/EDV. PSV/EDV. Right renal artery proximal Left renal artery proximal PSV/EDV 210.3/25.9 PSV/EDV. 102.2/24.6 . Right renal artery mid 118.2/24.9 Left renal artery mid 228.3/47.2 PSV/EDV. PSV/EDV . Right renal artery distal Left renal artery distal 221.9/44 115.6/22.3 PSV/EDV. PSV/EDV. Aorta Proximal abdominal aorta 1.57 x 1.65 cm . Proximal abdominal aorta peak systolic velocity is 103.1 cm/sec . Distal abdominal aorta 1.68 x 1.62 cm . Distal abdominal aorta peak systolic velocity is 66.9 cm/sec . Celiac artery, 439.1 cm/sec. Hepatic artery, 237.8 cm/sec. Splenic artery, 137.7 cm/sec. SMA origin, 125.5 cm/sec. SMA prox, 208.8 cm/sec. SMA mid, 704.9 cm/sec. SMA distal, 107.8 cm/sec. ANDREA origin, 346.2 cm/sec. ANDREA prox, 197.7 cm/sec. ANDREA mid, 188.4 cm/sec. ANDREA distal, 115.1 cm/sec. VL/Renal Artery Duplex Ultrasound Interpretation Summary Right renal artery patent with < 60% stenosis. Left renal artery patent with < 60% stenosis. Celiac artery with >70% stenosis. Superior mesenteric artery with >70% stenosis Inferior mesenteric artery with >70% stenosis Ordering Physician: Lucy Drew Referring Physician: Aracely Blanc Performed By: Lachelle Brown RVT
== END | disposition home or self-care (01) ==
LOC: CVS 09:01
PROVIDERS: PCP Internal Medicine; Referring Provider Physician Assistant; Visit Provider Physician Assistant
DX: K55.1 Chronic vascular disorders of intestine (principal)
CPT/HCPCS: 93975

== ENCOUNTER → 2024-04-09 | Outpatient (CLI) | payer MEDICARE, SELFPAY ==
[2021-06-28 09:37] VITALS: BMI 34.1
[2024-04-09 14:51] LABS: White Blood Cells 0 SEEN /hpf (0-5)
[2024-04-09 17:34] LABS: Color, Urine Yellow (Yellow); Glucose, Dipstick Normal (Normal); Ketone-Dipstick Negative (Negative); Leukocyte Esterase-Dipstick Negative /ul (Negative); Nitrite-Dipstick Negative (Negative); Occult Blood-Urine Negative /ul (Negative); Protein-Dipstick Negative (Negative); Specific Gravity, Urine 1.015 (1.002-1.030); Urine Bilirubin Dipstick Negative (Negative); Urine Clarity Clear (Clear); Urine Urobilinogen Normal (Normal)
[2024-04-09 17:58] LABS: Bacteria 1+ /hpf (None Seen)
[2024-04-09 17:59] LABS: Mucous, Urine 1+ /hpf (<or=2+); Red Blood Cells-Urine 0-5 SEEN /hpf (0-5); Squamous Epithelial Cells - UA 5-10 SEEN /hpf (5-10)
== END | disposition home or self-care (01) ==
LOC: LABSPEC 14:51
PROVIDERS: PCP Internal Medicine; Referring Provider Nurse Practitioner; Visit Provider Nurse Practitioner
DX: R30.0 Dysuria (principal)
CPT/HCPCS: 81001; 87086

== ENCOUNTER → 2024-04-11 | Outpatient (CLI) | payer MEDICARE, SELFPAY ==
[2021-06-28 09:37] VITALS: BMI 34.1
[2024-04-11 12:15] LABS: Absolute Lymphocyte Count 1.78 X10^3/uL (0.83-4.51); Absolute Neutrophil Count 1.6 X10^3/uL (2.0-7.7); Basophil# 0.04 X10^3/uL; Eosinophil# 0.07 X10^3/uL; Eosinophils% 1.8 % (0-5); Hematocrit 35.4 % (37-47); Hemoglobin 11.6 g/dL (12.0-15.0); Lymphocyte # 1.78 X10^3/ul (0.83-4.51); Lymphocyte % 44.8 % (19-41); Mean Corp Hgb Conc 32.8 g/dL (32-36); Mean Corpuscular Hgb 29.8 pg (27.0-32.0); Mean Platelet Vol. 10.2 fl (6.2-12.0); Monocyte# 0.51 X10^3/uL; Monocyte% 12.8 % (0-10); NRBC Flagged by Analyzer 0 % (0-5); Neutrophil # 1.56 X10^3/uL (2.7-7.7); Neutrophil % 39.3 % (47-70); Platelet Count 283 K/mm3 (150-450); RBC Distribution Width CV 13.3 % (11.6-14.6); RBC Distribution Width SD 44.9 fl (35.1-43.9); Red Blood Count 3.89 M/mm3 (4.2-5.4)
[2024-04-11 12:48] LABS: ALB/GLOB Ratio 0.9 RATIO (0.9-2.4); AST(SGOT) 17 U/L (15-37); Alanine Aminotransfer ALT/SGPT 15 U/L (13-56); Albumin, Serum 3.3 g/dL (3.2-5.0); Alkaline Phosphatase 84 U/L (45-117); Anion Gap 6 (5-15); BUN 14 mg/dL (7-18); BUN/Creat Ratio 18.3 RATIO (10-20); Bilirubin, Direct 0.14 mg/dL (0.00-0.30); Calcium,Total 9.3 mg/dL (8.5-10.1); Chloride 100 mmol/L (98-107); Creatinine, Serum 0.76 mg/dL (0.55-1.02); EST Glomerular Filtration Rate 77 mL/min (>60); Est Glom Filt Rate - Afr Amer 94 mL/min (>60); Globulin 3.7 g/dL (2.2-4.2); Glucose 94 mg/dL (74-106); Potassium 4.1 mmol/L (3.5-5.1); Sodium Level 132 mmol/L (136-145)
[2024-04-11 13:05] LABS: Cholesterol 187 mg/dL (200); High Density Lipoprotein 60 mg/dL; Triglycerides 90 mg/dL; Very Low Density Lipoprotein 18 mg/dL (5-40)
== END | disposition home or self-care (01) ==
LOC: BIMLAB 09:57
PROVIDERS: Physician Assistant Medical; PCP Internal Medicine; Referring Provider Nurse Practitioner; Visit Provider Nurse Practitioner
DX: I10 Essential (primary) hypertension (principal); E78.00 Pure hypercholesterolemia, unspecified
CPT/HCPCS: 36415; 80053; 80061; 82248; 85025

== ENCOUNTER 2024-04-26 11:32 | Emergency (ER) | payer MEDICARE, SELFPAY ==
[2021-06-28 09:37] VITALS: BMI 34.1
[2024-04-26 11:33] VITALS: BP 240/113; PULSE 66; RESP 18; TEMP 36.4; O2SAT 96; BMI 31.6
--- NOTE | 2024-04-26 12:05 | RAD_ITS ---
INDICATION: injury EXAMINATION/TECHNIQUE: X-RAY - LEFT XR Hand Min 3 Views 3 VIEWS COMPARISON: No relevant prior comparison study available FINDINGS: SOFT TISSUES: No soft tissue swelling or gas. No radiopaque foreign body. BONES/JOINTS: Questionable hairline fracture of the scaphoid. The remainder of the osseous structures appear intact. Diffuse demineralization of the osseous structures. Degenerative arthrosis of the carpometacarpal joint of the thumb. Narrowing of the distal interphalangeal joints. No erosive changes. No sclerotic or destructive changes observed. RAD/Hand Min 3 Views IMPRESSION: 1. Questionable hairline nondisplaced fracture of the scaphoid. Follow-up exams is recommended. 2. Demineralization of the osseous structures. Electronically Signed: Laci Wilhelm MD at 12:36 EDT ,
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
--- NOTE | 2024-04-26 12:42 | ED.RN ---
L ring finger splinted
--- NOTE | 2024-04-26 12:48 | ED.RN ---
Patietn ambulated to bathroom x2 and given coffee with creamer per request.
[2024-04-26 12:59] VITALS: BP 226/91
--- NOTE | 2024-04-26 13:07 | ED.RN ---
Dr. Desir notified of BP of 226/91, stated it was okay for patient to take her own supply of 25 mg of hydralazine
[2024-04-26 13:29] VITALS: BP 226/91; PULSE 66; RESP 18; TEMP 36.4; O2SAT 96
== END 2024-04-26 13:30 | disposition home or self-care (01) ==
PROVIDERS: Emergency Provider Emergency Medicine; PCP Internal Medicine; Visit Provider Emergency Medicine
DX: S63.615A Unspecified sprain of left ring finger, initial encounter (principal); I12.9 Hypertensive chronic kidney disease with stage 1 through stage 4 chronic kidney disease, or unspecified chronic kidney disease; S60.042A Contusion of left ring finger without damage to nail, initial encounter; I25.10 Atherosclerotic heart disease of native coronary artery without angina pectoris; N18.9 Chronic kidney disease, unspecified; Z79.82 Long term (current) use of aspirin; Z79.899 Other long term (current) drug therapy; V89.2XXA Person injured in unspecified motor-vehicle accident, traffic, initial encounter; Z86.16 Personal history of COVID-19; Z95.5 Presence of coronary angioplasty implant and graft; Z86.73 Personal history of transient ischemic attack (TIA), and cerebral infarction without residual deficits
CPT/HCPCS: 73130; 99284

== ENCOUNTER → 2024-05-02 | Outpatient (CLI) | payer MEDICARE, SELFPAY ==
[2021-06-28 09:37] VITALS: BMI 34.1
--- NOTE | 2024-05-02 09:55 | RAD_ITS ---
STUDY: X-RAY - UNILATERAL RIBS ( LEFT ) WITH CHEST REASON FOR EXAM: Female, 79 years old. Left rib pain, diminished lung sounds left. TECHNIQUE - RIBS: 4 views of the left ribs. TECHNIQUE - CHEST: Single frontal view of the chest. COMPARISON: Chest radiograph dated 10/28/2023. FINDINGS - RIBS: Normal visualized left ribs without a demonstrated fracture. FINDINGS - CHEST: There is a persistent moderate hiatal hernia. Stable calcific densities projecting over the right subcarinal region, presumably calcified lymph nodes. The lungs are clear and expanded. There is no demonstrated pleural abnormality. Normal size heart. Normal mediastinum and kaylie. Normal visualized pulmonary arteries. Normal visualized aortic arch and descending thoracic aorta. There is mild dextroscoliosis of the thoracic spine. Normal visualized ribs, clavicles, and shoulders. There is no demonstrated abnormality of the visualized soft tissue structures of the upper abdomen. RAD/Ribs Uni Min 3V w/PA Chest IMPRESSION: RIBS: Normal x-ray examination of the left ribs. CHEST: Stable moderate hiatal hernia. Stable calcified right subcarinal lymph nodes. Electronically Signed: Danny Joshua MD at 16:01 EDT ,
== END | disposition home or self-care (01) ==
PROVIDERS: PCP Internal Medicine; Referring Provider Nurse Practitioner; Visit Provider Nurse Practitioner
DX: R07.81 Pleurodynia (principal)
CPT/HCPCS: 71101

== ENCOUNTER 2024-05-11 11:22 | Inpatient (IN) | payer MEDICARE, SELFPAY ==
[2021-06-28 09:37] VITALS: BMI 34.1
[2024-05-11] VITALS (31 sets, daily range): BP systolic 111–229; BP diastolic 56–102; PULSE 58–74; RESP 10–25; TEMP 36.3–37.7; O2SAT 94–99; BMI 30.4; BMI 31.6
--- NOTE | 2024-05-11 11:24 | EKG12_ITS ---
Test Reason : STEMI Blood Pressure : */* mmHG Vent. Rate : 64 BPM Atrial Rate : 64 BPM P-R Int : 184 ms QRS Dur : 92 ms QT Int : 428 ms P-R-T Axes : 18 -22 108 degrees QTcB Int : 441 ms Critical Test Result: STEMI Normal sinus rhythm Left ventricular hypertrophy with repolarization abnormality ( R in aVL , [place] product ) ST elevation consider inferior injury or acute infarct ACUTE AK / STEMI Consider right ventricular involvement in acute inferior infarct Abnormal ECG Confirmed by YESSI SILVER, ANNA ([id number]), subeditor CECILIA CHAO ([id number]) on 05/13/2024 9:39:29 AM Referred By: Jones Bolaños Confirmed By: ANNA DICKSON MD
--- NOTE | 2024-05-11 11:30 | ED.VIS.CHEST ---
HPI History of Present Illness Chief Complaint: Chest Pain Informant: patient and EMS Narrative Narrative: 79-year-old female presenting to the emergency room with the chief complaint of chest pain. EMS was called to her house. She notes chest pain left chest going into the left arm. She notes a prior history of coronary artery disease. She follows locally with cardiology. Patient's pain has been constant. Prehospital EKG demonstrates ST elevation inferolaterally. EMS administered aspirin Brilinta and heparin. No nitroglycerin was given due to the location of the elevation. Review of the patient's chart shows that she has had prior drug-eluting stent to proximal and mid OM1 v on March 18, 2020 in a staged drug-eluting stent to the mid LAD 04/16/2020. Patient states that she takes aspirin daily but no other blood thinners. [facility] Medical History Bowel obstruction Renal artery stenosis Hypertensive urgency Urinary frequency COVID-19 Difficulty balancing when standing Knee pain Fatigue Heart disease SOB (shortness of breath) Kidney disease Skin cancer Hyponatremia Presence of stent in coronary artery (~04/16/20) Atherosclerotic heart disease of [place] coronary artery without angina pectoris PAD (peripheral artery disease) Hypertensive urgency Chest pain Non-rheumatic mitral regurgitation CKD (chronic kidney disease) Vaginal wall prolapse Pessary maintenance Anxiety and depression Near syncope CVA (cerebral vascular accident) HLD (hyperlipidemia) Syncope and collapse Syncope due to orthostatic hypotension History of gastroesophageal reflux (GERD) Essential hypertension Home Medications ?Medication ?Instructions ?Recorded ?Last Taken ?Type cholecalciferol (vitamin D3) 25 25 mcg PO DAILY vit D3 04/09/23 Unknown History mcg (1,000 unit) capsule ascorbic acid (vitamin C) 500 mg 500 mg PO DAILYCM 30 days #30 tabs 04/12/23 Unknown Rx tablet aspirin 81 mg tablet,delayed 81 mg PO DAILY heart 04/19/23 10/27/23 History release acetaminophen 500 mg tablet 1,000 mg PO Q8H PRN pain 10/28/23 10/28/23 02:00 History furosemide 20 mg tablet 20 mg PO DAILY PRN LEG Swelling 10/30/23 Unknown Rx #30 tabs sennosides 8.6 mg-docusate sodium 2 tab PO BID PRN PRN Constipation 10/30/23 Unknown Rx 50 mg tablet (Stool #0 tabs Softener-Stimulant Laxative) digestive enzymes 1 cap PO DAILY 11/06/23 Unknown History sodium chloride 1,000 mg soluble See Rx Instructions PO .COMPLEX 12/07/23 Unknown Rx tablet #150 TABLETS ezetimibe 10 mg tablet 10 mg PO DAILY #30 TABLETS 12/12/23 Unknown Rx losartan 50 mg tablet 50 mg PO BID #180 tabs 12/21/23 Unknown Rx carvedilol 25 mg tablet 25 mg PO BID #180 tabs 12/28/23 Unknown Rx levocetirizine 5 mg tablet 5 mg PO DAILY #90 tabs 01/01/24 Unknown Rx pantoprazole 40 mg tablet,delayed 40 mg PO DAILY acid reflux #90 tabs 01/01/24 Unknown Rx release potassium chloride 20 mEq See Rx Instructions .Route 01/15/24 Unknown Rx tablet,extended release .COMPLEX potassium #90 tabs buspirone 5 mg tablet 7.5 mg PO QDAY for anxiety 03/28/24 Unknown History hydralazine 25 mg tablet 25 mg PO TID 03/28/24 Unknown History estradiol 0.01% (0.1 mg/gram) 0.25 appful vaginal 2XW #42.5 grams 04/02/24 Unknown Rx vaginal cream alprazolam 0.5 mg tablet (Xanax) 0.5 mg PO DAILY PRN anxiety #15 04/09/24 Unknown Rx tabs denosumab 60 mg/mL subcutaneous 60 mg subcut [id number] #1 mL 04/09/24 Unknown Rx syringe (Prolia) Allergy/AdvReac Type Severity Reaction Status Date / Time amlodipine AdvReac Intermediate swelling Verified 05/02/24 08:32 Avwpahi-JSX-DbF Reductase AdvReac leg muscle Verified 05/02/24 08:32 Inhibitor (Pdrwewh-Swf-Oti weakness Reductase Inhibitor) Family History Mother CAD (coronary artery disease) CVA (cerebral vascular accident) Brother CVA (cerebral vascular accident) Heart disease Kidney disease Diabetes Sister CAD (coronary artery disease) Sister Diabetes Brother Diabetes Brother CAD (coronary artery disease) Other Cancer Hypertension Surgical History History of right knee joint replacement S/P skin biopsy (~08/2022) H/O oral surgery History of renal stent Presence of coronary angioplasty implant and graft (~03/18/20) History of bilateral cataract extraction Social History household members: other details: granddaughter 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 Smoking Status: Never smoker Electronic Cigarette Use: not used alcohol intake: never substance use type: does not use caffeine: No what type of physical activity do you participate in: none seatbelt use: always do you feel safe at home: Yes additional social history: - Retired 1 adopted daughter-, drug use ROS ROS ED ROS Narrative Generalized weakness Constitutional Constitutional ED: Denies chills or weight loss Eyes Eyes: Denies change in vision or diplopia ENT ENT ED: Denies ear pain, rhinorrhea or sore throat Cardiovascular Cardiovascular: Reports chest pain; Denies orthopnea, palpitations or racing heartbeat Respiratory/Chest Respiratory/Chest: Reports dyspnea; Denies cough or orthopnea Gastrointestinal Gastrointestinal: Denies abdominal pain, diarrhea, nausea or vomiting Genitourinary Genitourinary ED: Denies dysuria, hematuria or urinary frequency Musculoskeletal Musculoskeletal: Denies arthralgias or myalgias Integumentary Denies abscess or rash Neurologic Neurologic: Denies headache(s) or weakness Psychiatric Psychiatric: Denies anxiety, depression, suicidal ideation or suicidal thoughts Endocrine Endocrinology: Denies polydipsia, polyphagia or polyuria Allergic/Immunologic Allergic/Immunologic ED: Denies mouth swelling, tongue swelling or urticaria EXAM Physical Exam Narrative Exam Narrative: Patient appears generally fatigued she speaks extremely quiet Const Vital Signs: 05/11/24 11:22 05/11/24 11:22 05/11/24 11:24 Temperature 97.9 F Temperature Source Temporal Pulse Rate 62 Respiratory Rate 14 Respiratory Effort Normal Non-Labored Blood Pressure 229/90 H Blood Pressure Mean 136 Pulse Ox 99 Oxygen Delivery Method Room Air Room Air 05/11/24 11:25 Temperature Temperature Source Pulse Rate Respiratory Rate 25 H Respiratory Effort Blood Pressure 229/90 H Blood Pressure Mean Pulse Ox Oxygen Delivery Method Positive well nourished and well developed General Appearance ED: well developed and NAD HEENT Reports normocephalic, head/scalp atraumatic and moist mucous membranes Eyes PERRL and EOMs intact bilaterally Neck no lymphadenopathy, supple and no JVD Resp normal respiratory effort and clear to auscultation bilaterally Cardio regular rate, regular rhythm and no murmurs GI normal to inspection, nondistended, normoactive bowel sounds and non-tender Palpation: soft Back/Spine no CVA tenderness and normal ROM Extremity normal to inspection General Extremety ED: Negative for edema General Extremity: Negative for edema Neuro oriented x3 and CN's II-XII intact bilaterally Sensorium / Orientation: alert Motor Exam: strength 5/5 throughout Psych mental status grossly normal Mood & Affect: Negative for depressed or tearful Skin no rashes or lesions noted and no wounds MDM MDM MDM Narrative Medical decision making narrative: Differential diagnosis includes but not limited to acute coronary syndrome aortic dissection pneumothorax coronary artery dissection Prehospital EKG was reviewed and a prehospital STEMI team was activated. Upon arrival the patient's EKG is currently demonstrating ST elevation 2 3 aVF as well as probable V1. Prehospital meds were confirmed with EMS. Patient received additional morphine and Zofran. I had spoken with interventional list Dr. Bolaños prior to the patient's arrival. We are awaiting the cath team's arrival to take her directly to the [facility]. History & Record Review Discussion w/independent historian: EMS personnel and Patient Additional record(s) reviewed:: Prior outpatient record, Prior ED visit and Prior labs Lab Data Attestation: I reviewed the patient's lab results. Labs: Laboratory Results - last 24 hr 05/11/24 11:26 PT Cancelled INR Cancelled APTT Cancelled EKG Initial EKG: Attestation: I personally reviewed and interpreted this EKG as follows: Comments: Normal sinus rhythm ventricular rate of [address] elevation noted inferiorly Management Discussion w/another healthcare provider: Hospitalist (Dr Joshua) and Manager Spa (Dr Bolaños) Critical Care Time Critical Care Time: Yes Critical care time (excluding procedures): 30-74 minutes (21 min), Including time spent:, Discussing w/Patient &/or Family/Pensions Retirement Plan Specialist, Discussing w/Consultants, Arranging Admission or Transfer and Performing Direct Patient Care at Bedside Discharge Plan Dx/Rx/DC Orders Clinical Impression: ST elevation (STEMI) myocardial infarction, CKD (chronic kidney disease) Disposition Disposition: Acute Care Hospital [facility]
[2024-05-11] MEDS: Morphine 2 MG/ML Syringe IV (11:35)
--- NOTE | 2024-05-11 11:35 | RAD_ITS ---
EXAM: XR CHEST, 1 VIEW CLINICAL INDICATION: chest pain TECHNIQUE: Frontal view of the chest. COMPARISON: Chest and ribs, 05/02/2024 FINDINGS: LUNGS AND PLEURAL SPACES: Right hilar granuloma. No pneumothorax. No effusion. No definite focal airspace disease. HEART: No significant abnormality. Cardiac silhouette not enlarged. MEDIASTINUM: Hiatal hernia. BONES/JOINTS: Degenerative changes in the spine and shoulders. No acute fracture. SOFT TISSUES: No significant abnormality. VASCULATURE: Atherosclerosis. RAD/Chest 1 View (Portable) IMPRESSION: 1. No definite focal airspace disease. 2. Hiatal hernia. Electronically Signed: Jono Miramontes DO at 12:08 EST ,
[2024-05-11] MEDS: Ondansetron 4 MG/2 ML Vial IV ×2 (11:39→20:50)
[2024-05-11 11:48] LABS: Absolute Lymphocyte Count 1.84 X10^3/uL (0.83-4.51); Absolute Neutrophil Count 2.8 X10^3/uL (2.0-7.7); Basophil# 0.03 X10^3/uL; Basophil% 0.6 % (0-1); Eosinophil# 0.13 X10^3/uL; Eosinophils% 2.4 % (0-5); Hematocrit 36.3 % (37-47); Hemoglobin 12.3 g/dL (12.0-15.0); Lymphocyte # 1.84 X10^3/ul (0.83-4.51); Lymphocyte % 34.1 % (19-41); Mean Corp Hgb Conc 33.9 g/dL (32-36); Mean Corpuscular Hgb 30.8 pg (27.0-32.0); Mean Platelet Vol. 9.6 fl (6.2-12.0); Monocyte% 11.1 % (0-10); NRBC Flagged by Analyzer 0 % (0-5); Neutrophil # 2.77 X10^3/uL (2.7-7.7); Neutrophil % 51.4 % (47-70); Platelet Count 289 K/mm3 (150-450); RBC Distribution Width SD 43.8 fl (35.1-43.9); Red Blood Count 3.99 M/mm3 (4.2-5.4); White Blood Count 5.4 K/mm3 (4.4-11.0)
[2024-05-11 11:51] LABS: Anion Gap 6 (5-15); BUN 17 mg/dL (7-18); BUN/Creat Ratio 20.4 RATIO (10-20); Calcium,Total 8.8 mg/dL (8.5-10.1); Chloride 94 mmol/L (98-107); Creatinine, Serum 0.83 mg/dL (0.55-1.02); EST Glomerular Filtration Rate 70 mL/min (>60); Est Glom Filt Rate - Afr Amer 85 mL/min (>60); Estimated Creatinine Clearance 46.68 ml/min; Glucose 150 mg/dL (74-106); Potassium 3.9 mmol/L (3.5-5.1); Sodium Level 129 mmol/L (136-145); Troponin-I HS 51 pg/mL (3.0-54.0)
--- NOTE | 2024-05-11 12:53 | PCI.CARDCATH ---
PCI Cardiac Cath Report PCI Report: PCI cardiac cath report 2/acute STEMI inferior 1. Selective left coronary angiography 2. Successful PCI of the culprit which is occluded proximal nondominant RCA With predilatation 1.5 mm balloon followed by placement of drug-eluting stent 2 x 30 mm [place] ARIADNA Postdilated with 2.5 x 15 mm proximally. With improvement of BRADEN flow from 0 to BRADEN-3 Reduction of lesion from subtotal 99% to 0% post PCI. Preprocedure diagnosis; 79-year-old patient with known history of CAD she followed here at the [facility] with the cardiac team. Patient had history of PCI and stent in March 18, 2020 Drug-eluting stent to proximal LAD, as well as the OM branch. Of note patient had a history of hypertension, peripheral vascular disease with prior renal artery stents. And she has been on medical therapy however she was not regularly taking her medication according to history Evidently patient developed severe retrosternal chest pain around 4:00 in the morning EMS called and EKG obtained which showed ST elevation in the inferior leads and was brought to the emergency to the ED department. And to the Food And Beverage Director. The EKG showed also some ST depressions but the very prominent ST elevation noted in the inferior leads lead II, 3 and aVF. Patient was given heparin in the ER 5000 units, aspirin and Brilinta and was taken to the emergency. To the Food And Beverage Director. Consent; Risk and benefit of the procedure explained in detail patient ducted to proceed informed consent obtained. Diagnostic catheter and equipment used in the Food And Beverage Director 1. 6 [place] sheath placed in the right radial artery 2. 5 [place] JL 3.5 3. 6 [place] JR4 guide 4. 0.014 180 cm run-through extra floppy straight guide catheter 0.035 to 60 cm exchange glide 0.35 to 60 cm J exchange wire 1.2 x 20 mm balloon 1.5 x 15 mm Emerge balloon 2 x 30 mm [place] ARIADNA 2.5 x 15 mm NC balloon Medication used in the Food And Beverage Director; Nitroglycerin IC Heparin additional doses of total 5000 With ACT level acceptable 256 Integrilin 2bolus with Integrilin infusion IC nitroglycerin, total of 200 mcg IC Procedure in detail; Patient has severe retrosternal chest pain while in the Food And Beverage Director and was access from the right radial artery Procedure the emergency with a diagnostic catheter left coronary system obtained multiple views Followed by guide catheter and RCA angiography obtained Started the culprit lesion which is nondominant RCA we will cross the lesion with run-through wire Then with start balloon dilatation but unable to cross the lesion with 2 oh balloon then we escalate the balloon from 1.2 mm which crossed the lesion with an with followed by multiple balloon inflations using the same balloon and we were able to cross with stent. And angiographic views were studied. Coronary angiography; Patient has episode of V-fib shocked 1 time and converted to sinus rhythm 1. Left main is normal angiographically bifurcating into LAD and left circumflex 2. LAD proximal stent is patent The LAD had diffuse disease in the mid to distal segment of the vessel which is moderate disease 3. Left circumflex large dominant with a patent stent of OM branch 4. Culprit lesion is a occluded/subtotal proximal RCA of a nondominant vessel Due to continued symptoms of chest pain I decided to proceed proceed with intervention and PCI which was successfully performed. Post procedure patient symptoms resolved and ST segment resolved and she remained stable clinically Integrilin started. Patient will be managed and monitored in the CCU with the plan of echocardiogram and then will follow-up with the primary rice drier operator here at [facility]. No complication in the Food And Beverage Director. Jones Bolaños MD,FAC,[facility] export sales manager
[2024-05-11] MEDS: EPTIFIBATIDE 75 MG/100 ML VIAL 11 MG CONT INF ×2 (13:15→20:34)
[2024-05-11 13:30] LABS: ACT Activated Clotting Time 256 sec (74-137)
[2024-05-11 13:54] LABS: Hematocrit 35.4 % (37-47); Hemoglobin 12.2 g/dL (12.0-15.0); Mean Corp Hgb Conc 34.5 g/dL (32-36); Mean Corpuscular Hgb 30.7 pg (27.0-32.0); Mean Corpuscular Volume 88.9 fL (81-99); Mean Platelet Vol. 9.6 fl (6.2-12.0); Platelet Count 283 K/mm3 (150-450); RBC Distribution Width CV 12.9 % (11.6-14.6); Red Blood Count 3.98 M/mm3 (4.2-5.4); White Blood Count 10.6 K/mm3 (4.4-11.0)
[2024-05-11] MEDS: 0.9% Normal Saline (1000mL) 1,000 ML 75 ML IV (14:00)
--- NOTE | 2024-05-11 15:54 | ECHOD_ITS ---
Reason For Study: STEMI Procedure This was a 2D Doppler, Color Flow transthoracic echocardiogram. The patient was scanned supine. Exam performed portable in patient room. Left Ventricle Normal LV size. Mild concentric left ventricular hypertrophy. Apical false tendon noted. The left ventricular ejection fraction is 70 %. Stage 2 diastolic dysfunction. Infero-Basal: Mildly hypokinetic. Right Ventricle Normal RV size. Normal systolic function. Atria The left atrium is mildly enlarged. Normal right atrium. Mitral Valve There is moderate mitral annular calcification. Mild (1+) eccentric mitral valve insufficiency. Tricuspid Valve Normal tricuspid valve. Mild tricuspid valve insufficiency. Pulmonary artery systolic pressure is 22 mmHg. Aortic Valve Trisinus/trileaflet aortic valve. Pulmonic Valve Normal pulmonic valve. Great Vessels Normal aortic root. The pulmonary artery is normal size. Inferior vena cava collapse with sniff. Pericardium/Pleural No pericardial effusion. MMode/2D Measurements & Calculations LVIDd: 3.6 cm IVSd: 1.2 cm LVOT diam: 1.9 cm LVIDs: 2.1 cm LVPWd: 1.2 cm LVOT area: 2.7 cm2 RVDd: 3.2 cm FS: 41.9 % asc Aorta Diam: 3.0 cm LAV(MOD-bp): 65.0 ml LVAd ap4: 20.8 cm2 LAV(MOD-bp) Indexed: 39.6 ml/m2 LVLd ap4: 6.6 cm LAV(MOD-sp2): 56.3 ml EDV(MOD-sp4): 54.2 ml LAV(MOD-sp4): 74.1 ml EDV(sp4-el): 55.6 ml LVAs ap4: 10.4 cm2 LVLs ap4: 5.6 cm ESV(MOD-sp4): 16.6 ml ESV(sp4-el): 16.4 ml EF(MOD-sp4): 69.3 % EF(sp4-el): 70.4 % LVAd ap2: 20.3 cm2 SV(MOD-sp4): 37.6 ml SV(MOD-sp2): 33.6 ml LVLd ap2: 7.1 cm SI(MOD-sp4): 22.9 ml/m2 SI(MOD-sp2): 20.5 ml/m2 EDV(MOD-sp2): 47.3 ml EDV(sp2-el): 49.2 ml LVAs ap2: 9.3 cm2 LVLs ap2: 5.9 cm ESV(MOD-sp2): 13.8 ml ESV(sp2-el): 12.5 ml EF(MOD-sp2): 70.9 % SV(sp4-el): 39.1 ml LA dimension(2D): 3.9 cm LA A4 area: 24.1 cm2 RA A4 area: 15.6 cm2 TAPSE: 1.7 cm Time Measurements MV dec time: 0.20 sec Doppler Measurements & Calculations MV E max jimy: 99.9 cm/sec Lat Peak E' Jimy: 8.1 cm/sec Med Peak E' Jimy: 5.6 cm/sec MV A max jimy: 78.2 cm/sec E/E' lat: 12.3 E/E' med: 17.7 MV E/A: 1.3 Ao V2 max: 163.7 cm/sec LV V1 max: 115.9 cm/sec MV dec slope: 502.4 cm/sec2 Ao max P.7 mmHg LV V1 max P.4 mmHg Ao V2 mean: 106.0 cm/sec LV V1 mean P.0 mmHg Ao mean P.2 mmHg LV V1 mean: 81.6 cm/sec Ao V2 VTI: 37.2 cm LV V1 VTI: 27.5 cm AV (velocity ratio): 0.74 CARLOS(I,D): 2.0 cm2 CARLOS(V,D): 1.9 cm2 SV(LVOT): 74.5 ml PA V2 max: 87.0 cm/sec TR max jimy: 218.7 cm/sec TR max P.1 mmHg ECHO/Echo Complete Interpretation Summary Normal LV size. The left ventricular ejection fraction is 70 %. Stage 2 diastolic dysfunction. Mild (1+) eccentric mitral valve insufficiency. Infero-Basal: Mildly hypokinetic Ordering Physician: Elisa Joshua Referring Physician: Jones Bolaños Performed By: Miranda Blanco RDCS
--- NOTE | 2024-05-11 15:54 | PCM.HP.STD ---
HPI - General General Date of Admission: 05/11/24 Date of Service: 05/11/24 Chief Complaint: Chest Pain HPI Narrative SANJIV PEOPLES, is a 79 F who presented to the emergency department at [facility] on 05/11/2020 for after the EMS was called due to the patient having chest pain on the left side of her chest and radiating into her left arm. She does have a history of previous coronary artery disease with her last stents in 2019. Prehospital EKG demonstrated ST elevation in the inferior lateral leads and a STEMI alert was called. EMS administered Brilinta and heparin and no nitroglycerin was given due to the concern of a RCA lesion given the area of elevation. She does have previous ARIADNA to the proximal and mid OM1 which was done on March 18, 2020 and had a staged procedure with a drug-eluting stent placed to the mid LAD on 04/16/2020. Patient has been on aspirin daily but no longer had been on dual antiplatelet therapy. Vital signs on presentation showed a temperature of 97.9, heart rate 62, respiratory rate 14, initial blood pressure was 229/90 with a sat of 99% on room air. Patient was given morphine and Zofran in the emergency department and prehospital meds were confirmed with EMS by the emergency department physician and she was taken to the Clinical Science Liaison where successful PCI with a ARIADNA to the culprit lesion was performed which was an occluded proximal nondominant RCA. BRADEN flow was initially 0 and improved to BRADEN flow 3. Patient was evaluated by me in the ICU postprocedure. Patient states she is cold has multiple blankets on. I did provide her with a heated blanket. She is complaining of some mild nausea but states she thinks it is just because she is hungry. Waiting for some chicken soup. I did inform her that there is an antiemetic available if needed. [facility] Medical History Bowel obstruction Renal artery stenosis Hypertensive urgency Urinary frequency COVID-19 Difficulty balancing when standing Knee pain Fatigue Heart disease SOB (shortness of breath) Kidney disease Skin cancer Hyponatremia Presence of stent in coronary artery (~04/16/20) Atherosclerotic heart disease of [place] coronary artery without angina pectoris PAD (peripheral artery disease) Hypertensive urgency Chest pain Non-rheumatic mitral regurgitation CKD (chronic kidney disease) Vaginal wall prolapse Pessary maintenance Anxiety and depression Near syncope CVA (cerebral vascular accident) HLD (hyperlipidemia) Syncope and collapse Syncope due to orthostatic hypotension History of gastroesophageal reflux (GERD) Essential hypertension Home Medications ?Medication ?Instructions ?Recorded ?Last Taken ?Type cholecalciferol (vitamin D3) 25 25 mcg PO DAILY vit D3 04/09/23 Unknown History mcg (1,000 unit) capsule ascorbic acid (vitamin C) 500 mg 500 mg PO DAILYCM 30 days #30 tabs 04/12/23 Unknown Rx tablet aspirin 81 mg tablet,delayed 81 mg PO DAILY heart 04/19/23 10/27/23 History release acetaminophen 500 mg tablet 1,000 mg PO Q8H PRN pain 10/28/23 10/28/23 02:00 History furosemide 20 mg tablet 20 mg PO DAILY PRN LEG Swelling 10/30/23 Unknown Rx #30 tabs sennosides 8.6 mg-docusate sodium 2 tab PO BID PRN PRN Constipation 10/30/23 Unknown Rx 50 mg tablet (Stool #0 tabs Softener-Stimulant Laxative) digestive enzymes 1 cap PO DAILY 11/06/23 Unknown History sodium chloride 1,000 mg soluble See Rx Instructions PO .COMPLEX 12/07/23 Unknown Rx tablet #150 TABLETS ezetimibe 10 mg tablet 10 mg PO DAILY #30 TABLETS 12/12/23 Unknown Rx losartan 50 mg tablet 50 mg PO BID #180 tabs 12/21/23 Unknown Rx carvedilol 25 mg tablet 25 mg PO BID #180 tabs 12/28/23 Unknown Rx levocetirizine 5 mg tablet 5 mg PO DAILY #90 tabs 01/01/24 Unknown Rx pantoprazole 40 mg tablet,delayed 40 mg PO DAILY acid reflux #90 tabs 01/01/24 Unknown Rx release potassium chloride 20 mEq See Rx Instructions .Route 01/15/24 Unknown Rx tablet,extended release .COMPLEX potassium #90 tabs buspirone 5 mg tablet 7.5 mg PO QDAY for anxiety 03/28/24 Unknown History hydralazine 25 mg tablet 25 mg PO TID 03/28/24 Unknown History estradiol 0.01% (0.1 mg/gram) 0.25 appful vaginal 2XW #42.5 grams 04/02/24 Unknown Rx vaginal cream alprazolam 0.5 mg tablet (Xanax) 0.5 mg PO DAILY PRN anxiety #15 04/09/24 Unknown Rx tabs denosumab 60 mg/mL subcutaneous 60 mg subcut [id number] #1 mL 04/09/24 Unknown Rx syringe (Prolia) Allergy/AdvReac Type Severity Reaction Status Date / Time amlodipine AdvReac Intermediate swelling Verified 05/02/24 08:32 Zygkpsr-EEK-EkF Reductase AdvReac leg muscle Verified 05/02/24 08:32 Inhibitor (Gykarmr-Ejf-Jyb weakness Reductase Inhibitor) Family History Mother CAD (coronary artery disease) CVA (cerebral vascular accident) Brother CVA (cerebral vascular accident) Heart disease Kidney disease Diabetes Sister CAD (coronary artery disease) Sister Diabetes Brother Diabetes Brother CAD (coronary artery disease) Other Cancer Hypertension Surgical History History of right knee joint replacement S/P skin biopsy (~08/2022) H/O oral surgery History of renal stent Presence of coronary angioplasty implant and graft (~03/18/20) History of bilateral cataract extraction Social History household members: other details: granddaughter 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 Smoking Status: Never smoker Electronic Cigarette Use: not used alcohol intake: never substance use type: does not use caffeine: No what type of physical activity do you participate in: none seatbelt use: always do you feel safe at home: Yes additional social history: - Retired 1 adopted daughter-, drug use ROS Constitutional Constitutional: Reports fatigue and weakness; Denies anorexia, change in weight, chills, fever(s), malaise, night sweats or other Eyes Eyes: Denies blurry vision, change in eye color, change in vision, discharge from eye(s), double vision, erythema, eye pain, loss of vision or other ENT HEENT: Reports abnormal hearing and hearing loss; Denies dysphagia, ear pain, epistaxis, headache(s), nasal congestion, nasal discharge, post nasal drip, sinus pressure, sore throat or other Cardiovascular Cardiovascular: Reports chest pain, lightheadedness and other Details: Presyncope ; Denies claudication, dyspnea on exertion, edema, orthopnea, palpitations, paroxysmal nocturnal dyspnea, rapid heart rate or syncope Respiratory/Chest Respiratory/Chest: Reports shortness of breath at rest; Denies cough, dyspnea, excessive phlegm production, hemoptysis, productive cough, shortness of breath with exertion, wheezing or other Gastrointestinal Gastrointestinal: Denies abdominal pain, coffee ground emesis, constipation, diarrhea, dyspepsia, hematemesis, hematochezia, loose stools, melena, nausea, vomiting or other Genitourinary Genitourinary: Denies burning urination, difficulty urinating, dysuria, hematuria, nocturia, urinary frequency, urinary hesitancy, urinary incontinence, urinary urgency or other Musculoskeletal Musculoskeletal: Reports joint pain and joint stiffness; Denies arthralgias, back pain, joint swelling, myalgias, neck pain or other Neurologic Neurologic: Denies abnormal gait, abnormal speech, confusion, disequilibrium, dizziness, focal weakness, headache(s), numbness, paresthesias, seizure-like activity, seizures, syncope, tingling, tremor(s) or other Psychiatric Psychiatric: Reports anxiety; Denies depression, homicidal ideation, suicidal ideation or other Endocrine Endocrinology: Denies change in body appearance, cold intolerance, excessive sweating, heat intolerance, polydipsia, polyuria or other Hematologic/Lymphatic Hematologic/Lymphatic: Denies anemia, easy bleeding, easy bruising, lymphadenopathy or other Allergic/Immunologic Allergic/Immunologic: Denies rhinitis, hives, eczemia, asthma or other Vital Signs Vital Signs Vital Signs: 05/11/24 11:22 05/11/24 11:22 05/11/24 11:24 Temperature 97.9 F Temperature Source Temporal Pulse Rate 62 Respiratory Rate 14 Respiratory Effort Normal Non-Labored Blood Pressure 229/90 H Blood Pressure Mean 136 Blood Pressure Source Blood Pressure Position Blood Pressure Location Pulse Ox 99 Oxygen Delivery Method Room Air Room Air 05/11/24 11:25 05/11/24 12:10 05/11/24 13:15 Temperature 97.4 F L 97.8 F Temperature Source Oral Pulse Rate 67 64 Respiratory Rate 25 H 25 H 15 Respiratory Effort Blood Pressure 229/90 H 229/90 H 160/99 H Blood Pressure Mean 136 119 Blood Pressure Source Monitor Blood Pressure Position Semi-Fowlers Blood Pressure Location Left Arm Pulse Ox 99 98 Oxygen Delivery Method Room Air 05/11/24 13:30 05/11/24 13:45 05/11/24 14:00 Temperature Temperature Source Pulse Rate 64 61 64 Respiratory Rate 18 16 Respiratory Effort Blood Pressure 169/75 H 162/69 H Blood Pressure Mean 106 100 Blood Pressure Source Monitor Monitor Blood Pressure Position Semi-Fowlers Semi-Fowlers Blood Pressure Location Left Arm Left Arm Pulse Ox 94 95 Oxygen Delivery Method Room Air Room Air 05/11/24 14:00 Temperature Temperature Source Pulse Rate 66 Respiratory Rate 16 Respiratory Effort Blood Pressure 164/66 H Blood Pressure Mean 98 Blood Pressure Source Monitor Blood Pressure Position Semi-Fowlers Blood Pressure Location Left Arm Pulse Ox 95 Oxygen Delivery Method Room Air Weight Weight: 70.9 kg Body Mass Index (BMI) 31.6 Physical Exam Const alert, oriented x3, no apparent distress and well nourished; Negative for average body habitus or healthy appearing Constitutional Narrative: Chronically ill-appearing, elderly, white female, lying in bed with multiple blankets, resting comfortably but alert and oriented, does not appear toxic, obese HEENT normocephalic, head/scalp atraumatic, hearing grossly normal bilaterally and moist oral mucous membranes HEENT Narrative: Dentition is poor, Mallampati is 2-3, no thrush Resp normal respiratory effort, no retractions, no use of accessory muscles and clear to auscultation bilaterally Auscultation: Negative for rales, rhonchi or wheezes Cardio regular rate, regular rhythm, S1 normal heart sound, S2 normal heart sound, no murmurs, no rub, no gallops and no clicks GI normal to inspection, nondistended, normoactive bowel sounds, soft to palpation and non-tender Extremity no clubbing, cyanosis or edema Extremity Narrative: Pedal pulses are 2+ bilaterally, right radial pulse with compression device in place, left radial pulse 2+ Neuro oriented x3, moves all extremities and no focal motor deficits Speech: speech normal Psych Psych Narrative: Affect is flat Results Lab / Micro Data 05/11/24 13:00 05/11/24 11:26 Labs: Laboratory Results - last 24 hr 05/11/24 11:26: WBC 5.4, RBC 3.99 L, Hgb 12.3, Hct 36.3 L, MCV 91.0, MCH 30.8, MCHC 33.9, RDW Std Deviation 43.8, RDW Coeff of Lucía 13.0, Plt Count 289, MPV 9.6, Immature Gran % (Auto) 0.400, Neut % (Auto) 51.4, Lymph % (Auto) 34.1, King % (Auto) 11.1 H, Eos % (Auto) 2.4, Baso % (Auto) 0.6, Absolute Neuts (auto) 2.8, Absolute Lymphs (auto) 1.84, Nucleated RBC % 0, PT Cancelled, INR Cancelled, APTT Cancelled, Sodium 129 L, Potassium 3.9, Chloride 94 L, Carbon Dioxide 29.0, Anion Gap 6, BUN 17, Creatinine 0.83, Estim Creat Clear Calc 46.68, Est GFR (MDRD) Af Amer 85, Est GFR (MDRD) Non-Af 70, BUN/Creatinine Ratio 20.4 H, Glucose 150 H, Calcium 8.8, Troponin I High Sens 51 05/11/24 11:45: PT Cancelled, INR Cancelled, APTT Cancelled 05/11/24 13:00: WBC 10.6, RBC 3.98 L, Hgb 12.2, Hct 35.4 L, MCV 88.9, MCH 30.7, MCHC 34.5, RDW Std Deviation 42.0, RDW Coeff of Lucía 12.9, Plt Count 283, MPV 9.6 05/11/24 13:10: Activated Clotting Time 256 H Imaging Radiology Impression Chest X-Ray 05/11/24 11:35 IMPRESSION: 1. No definite focal airspace disease. 2. Hiatal hernia. Electronically Signed: Jono Miramontes DO at 12:08 EST , Assessment & Plan Assessment/Plan (1) ST elevation (STEMI) myocardial infarction: PLAN: Plan STEMI -Inferior lateral with proximal RCA lesion status post PCI with ARIADNA to proximal RCA -Continue home aspirin 81 mg daily -Start Brilinta 90 mg p.o. twice daily -Will stop lisinopril started by cardiology and restart home losartan if verified -Unable to utilize statin due to history of statin intolerance--> continue Zetia -Continue postprocedure hydration to avoid nephrotoxicity with IV fluids per cardiology -Check echocardiogram-will be done on Monday -Will reinstitute home medications as appropriate after they have been verified -Check lipid panel -Check hemoglobin A1c -Consult cardiac rehab -Consult dietitian -Cardiology is following-appreciate input -Thus far no significant perfusion arrhythmias noted on telemetry History of renal artery stenosis -Bilateral renal artery stenosis less than 60% from renal duplex scan on December 2023 -Continue treatment to manage secondary risk factors CAD/essential hypertension/hyperlipidemia -Previous PCI with ARIADNA in 2019 as noted in HPI -Per cardiology documentation it does appear she has quite a bit of uncontrolled blood pressure -Will restart her home medications here once verified by nursing and if remain greater than 130/80 will increase her hydralazine to 50 3 times daily -Patient unfortunately has significant side effects with leg muscle weakness on statins -Continue Zetia Peripheral arterial disease -Patient has known renal artery stenosis as well as superior mesenteric and inferior mesenteric stenosis -Unable to tolerate statin -Continue to optimize blood pressure as able Osteoporosis -Management per primary service -Has been on Prolia -Continue vitamin D supplementation GERD -Continue home PPI once verified Chronic hyponatremia -Continue home sodium supplementation -Sodium 129 on presentation -Baseline sodium appears to run between 129 and 132 as of recently -Repeat lab in a.m. Osteoarthritis -As needed Tylenol Anxiety/depression -If verified will restart home Xanax and BuSpar Seasonal allergies -If verified continue home levocetirizine Obesity -BMI is 31.6 -Recommend weight loss -Complicates treatment, prognosis, outcomes DVT prophylaxis -Daily Lovenox CODE STATUS -DNR CCA with no intubation as verified with patient at the time of evaluation Charges/Coding Visit Charges Inpatient E&M: 03913 Init Hosp L2
[2024-05-11] MEDS: hydrALAZINE 50 MG Tablet PO (20:32)
[2024-05-11] MEDS: Carvedilol 12.5 MG Tablet PO (20:33)
[2024-05-11] MEDS: Sodium Chloride 1 GM Tablet 2 GM PO (20:34)
[2024-05-11] MEDS: 0.9% Saline Lock 10 ML Syringe IV (20:50)
[2024-05-12] VITALS (17 sets, daily range): BP systolic 137–188; BP diastolic 55–87; PULSE 60–82; RESP 13–21; TEMP 36.2–36.9; O2SAT 94–98; BMI 30.7
[2024-05-12] MEDS: Acetaminophen 325 MG Tablet 650 MG PO ×2 (00:15→15:52)
[2024-05-12 04:53] LABS: Absolute Neutrophil Count 3.1 X10^3/uL (2.0-7.7); Basophil# 0.02 X10^3/uL; Basophil% 0.3 % (0-1); Eosinophil# 0.06 X10^3/uL; Hematocrit 31.1 % (37-47); Hemoglobin 10.6 g/dL (12.0-15.0); Lymphocyte % 33.8 % (19-41); Mean Corp Hgb Conc 34.1 g/dL (32-36); Mean Corpuscular Hgb 30.5 pg (27.0-32.0); Mean Corpuscular Volume 89.4 fL (81-99); Mean Platelet Vol. 9.6 fl (6.2-12.0); Monocyte# 0.66 X10^3/uL; Monocyte% 11.2 % (0-10); NRBC Flagged by Analyzer 0 % (0-5); Neutrophil # 3.14 X10^3/uL (2.7-7.7); Neutrophil % 53.2 % (47-70); Platelet Count 256 K/mm3 (150-450); RBC Distribution Width SD 42.6 fl (35.1-43.9); Red Blood Count 3.48 M/mm3 (4.2-5.4); White Blood Count 5.9 K/mm3 (4.4-11.0)
[2024-05-12 05:13] LABS: AST(SGOT) 26 U/L (15-37); Alanine Aminotransfer ALT/SGPT 16 U/L (13-56); Alkaline Phosphatase 82 U/L (45-117); Anion Gap 7 (5-15); BUN 17 mg/dL (7-18); BUN/Creat Ratio 21.8 RATIO (10-20); Calcium,Total 8.5 mg/dL (8.5-10.1); Chloride 98 mmol/L (98-107); Cholesterol 164 mg/dL (200); Creatinine, Serum 0.78 mg/dL (0.55-1.02); EST Glomerular Filtration Rate 76 mL/min (>60); Est Glom Filt Rate - Afr Amer 91 mL/min (>60); Estimated Creatinine Clearance 49.28 ml/min; Globulin 3.1 g/dL (2.2-4.2); Glucose 95 mg/dL (74-106); High Density Lipoprotein 50 mg/dL; Magnesium 2.1 mg/dL (1.6-2.6); Phosphorus 3.9 mg/dL (2.5-4.9); Potassium 3.3 mmol/L (3.5-5.1); Protein, Total 6.1 g/dL (6.4-8.2); Sodium Level 132 mmol/L (136-145); Triglycerides 86 mg/dL; Very Low Density Lipoprotein 17 mg/dL (5-40)
[2024-05-12] MEDS: hydrALAZINE 50 MG Tablet PO (05:51)
[2024-05-12] MEDS: 0.9% Saline Lock 10 ML Syringe IV ×2 (05:52→10:17)
[2024-05-12 07:24] LABS: Hemoglobin A1c 5.4 % (3.8-5.6)
--- NOTE | 2024-05-12 08:56 | PN.HOSP_ITS ---
Reason for Visit Reason for Visit: Chest pain Subjective Subjective Patient with 1 episode of emesis overnight but she feels like it may have been related to medications. States she feels well this morning. Had 1 short run of nonsustained wide-complex tachycardia of 4 beats at about 130 this morning but no other ectopy noted. Patient denies any ongoing chest pain. Objective Data Objective Data Vital Signs: Vital Signs Temp Pulse Resp BP Pulse Ox O2 Del Method 98.1 F 62 16 171/62 H 95 Room Air 05/12/24 04:00 05/12/24 07:00 05/12/24 07:00 05/12/24 07:00 05/12/24 07:00 05/12/24 07:00 Oxygen Delivery Method Room Air Weight: 69.2 kg Body Mass Index (BMI) 30.7 Intake & Output: Intake and Output for Last 24 Hours 05/10/24 05/11/24 05/12/24 23:59 23:59 23:59 Intake Total 486.74 / 486.74 43.27 / 43.27 Output Total 200 / 625 440 / 440 Balance 286.74 / -138.26 -396.73 / -396.73 Lab / Micro Data 05/12/24 04:44 05/12/24 04:44 Labs: Laboratory Results - last 24 hr 05/11/24 11:26: WBC 5.4, RBC 3.99 L, Hgb 12.3, Hct 36.3 L, MCV 91.0, MCH 30.8, MCHC 33.9, RDW Std Deviation 43.8, RDW Coeff of Lucía 13.0, Plt Count 289, MPV 9.6, Immature Gran % (Auto) 0.400, Neut % (Auto) 51.4, Lymph % (Auto) 34.1, [place] % (Auto) 11.1 H, Eos % (Auto) 2.4, Baso % (Auto) 0.6, Absolute Neuts (auto) 2.8, Absolute Lymphs (auto) 1.84, Nucleated RBC % 0, PT Cancelled, INR Cancelled, APTT Cancelled, Sodium 129 L, Potassium 3.9, Chloride 94 L, Carbon Dioxide 29.0, Anion Gap 6, BUN 17, Creatinine 0.83, Estim Creat Clear Calc 46.68, Est GFR (MDRD) Af Amer 85, Est GFR (MDRD) Non-Af 70, BUN/Creatinine Ratio 20.4 H, G lucose 150 H, Calcium 8.8, Troponin I High Sens 51 05/11/24 11:45: PT Cancelled, INR Cancelled, APTT Cancelled 05/11/24 13:00: WBC 10.6, RBC 3.98 L, Hgb 12.2, Hct 35.4 L, MCV 88.9, MCH 30.7, MCHC 34.5, RDW Std Deviation 42.0, RDW Coeff of Lucía 12.9, Plt Count 283, MPV 9.6 05/11/24 13:10: Activated Clotting Time 256 H 05/12/24 03:25: WBC Cancelled, Corrected WBC Cancelled, RBC Cancelled, Hgb Cancelled, Hct Cancelled, MCV Cancelled, MCH Cancelled, MCHC Cancelled, RDW Std Deviation Cancelled, RDW Coeff of Lucía Cancelled, Plt Count Cancelled, MPV Cancelled, Immature Gran % (Auto) Cancelled, Neut % (Auto) Cancelled, Lymph % (Auto) Cancelled, [place] % (Auto) Cancelled, Eos % (Auto) Cancelled, Baso % (Auto) Cancelled, Absolute Neuts (auto) Cancelled, Absolute Lymphs (auto) Cancelled, Total Counted Cancelled, Neutrophils % (Manual) Cancelled, Band Neutrophils % Cancelled, Lymphocytes % (Manual) Cancelled, Monocytes % (Manual) Cancelled, Eosinophils % (Manual) Cancelled, Basophils % (Manual) Cancelled, Metamyelocytes % Cancelled, Myelocytes % Cancelled, Promyelocytes % Cancelled, Blast Cells % Cancelled, Plasma Cell % (Manual) Cancelled, Other Cells % Cancelled, Nucleated RBC % Cancelled, Nucleated RBCs/100 WBC Cancelled, Differential Comment Cancelled, Diff Path Review Cancelled, Hypersegmented Neuts Cancelled, Atypical Lymphocytes Cancelled, Reactive Lymphocytes Cancelled, Smudge Cells Cancelled, Toxic Granulation Cancelled, Toxic Vacuolation Cancelled, Dohle Bodies Cancelled, Sheila Rods Cancelled, Platelet Estimate Cancelled, Plt Morphology Comment Cancelled, RBC Morphology Cancelled 05/12/24 03:25: RBC Morphology Cancelled, Polychromasia Cancelled, Hypochromasia Cancelled, Basophilic Stippling Cancelled, Anisocytosis Cancelled, Microcytosis Cancelled, Macrocytosis Cancelled, Spherocytes Cancelled, Sickle Cells Cancelled, Target Cells Cancelled, Tear Drop Cells Cancelled, Ovalocytes Cancelled, Stomatocytes Cancelled, [place] Bodies Cancelled, [place] Cells Cancelled, Bite Cells Cancelled, Crenated Cell Cancelled, Acanthocytes (Spur) Cancelled, Rouleaux Cancelled, Schistocytes Cancelled, Sodium Cancelled, Potassium Cancelled, Chloride Cancelled, Carbon Dioxide Cancelled, Anion Gap Cancelled, BUN Cancelled, Creatinine Cancelled, Estim Creat Clear Calc Cancelled, Est GFR (MDRD) Af Amer Cancelled, Est GFR (MDRD) Non-Af Cancelled, BUN/Creatinine Ratio Cancelled, Glucose Cancelled, Hemoglobin A1c Cancelled, Calcium Cancelled, Phosphorus Cancelled, Magnesium Cancelled, Total Bilirubin Cancelled, AST Cancelled, ALT Cancelled, Alkaline Phosphatase Cancelled, Total Protein Cancelled, Albumin Cancelled, Globulin Cancelled, Albumin/Globulin Ratio Cancelled, Triglycerides Cancelled, Cholesterol Cancelled, LDL Cholesterol Cancelled, VLDL Cholesterol Cancelled, HDL Cholesterol Cancelled 05/12/24 04:44: WBC 5.9, RBC 3.48 L, Hgb 10.6 L, Hct 31.1 L, MCV 89.4, MCH 30.5, MCHC 34.1, RDW Std Deviation 42.6, RDW Coeff of Lucía 13.0, Plt Count 256, MPV 9.6, Immature Gran % (Auto) 0.500, Neut % (Auto) 53.2, Lymph % (Auto) 33.8, [place] % (Auto) 11.2 H, Eos % (Auto) 1.0, Baso % (Auto) 0.3, Absolute Neuts (auto) 3.1, Absolute Lymphs (auto) 2.00, Nucleated RBC % 0, Sodium 132 L, Potassium 3.3 L, Chloride 98, Carbon Dioxide 27.0, Anion Gap 7, BUN 17, Creatinine 0.78, Estim Creat Clear Calc 49.28, Est GFR (MDRD) Af Amer 91, Est GFR (MDRD) Non-Af 76, B UN/Creatinine Ratio 21.8 H, Glucose 95, Hemoglobin A1c 5.4, Calcium 8.5, Phosphorus 3.9, Magnesium 2.1, Total Bilirubin 0.50, AST 26, ALT 16, Alkaline Phosphatase 82, Total Protein 6.1 L, Albumin 3.0 L, Globulin 3.1, Albumin/Globulin Ratio 1.0, Triglycerides 86, Cholesterol 164, LDL Cholesterol 97, VLDL Cholesterol 17, HDL Cholesterol 50 Radiography Diagnostic Testing: Radiology Impression Chest X-Ray 05/11/24 11:35 IMPRESSION: 1. No definite focal airspace disease. 2. Hiatal hernia. Electronically Signed: Jono Miramontes DO at 12:08 EST , Physical Exam Const alert, oriented x3, no apparent distress and well nourished; Negative for average body habitus or healthy appearing Constitutional Narrative: Chronically ill-appearing, elderly, white female, sitting up in a chair at the bedside after just getting there from the bathroom with nursing, appears comfortable, nontoxic, watching television HEENT normocephalic, head/scalp atraumatic, hearing grossly normal bilaterally and moist oral mucous membranes HEENT Narrative: Dentition is poor, Mallampati is 2-3, no thrush Resp normal respiratory effort, no retractions, no use of accessory muscles and clear to auscultation bilaterally Auscultation: Negative for rales, rhonchi or wheezes Cardio regular rate, regular rhythm, S1 normal heart sound, S2 normal heart sound, no murmurs, no rub, no gallops and no clicks GI normal to inspection, nondistended, normoactive bowel sounds, soft to palpation and non-tender Extremity no clubbing, cyanosis or edema Extremity Narrative: Pedal pulses are 2+ bilaterally, no significant tenderness over the right radial artery area status post cardiac catheterization, pulses are 2+ bilaterally upper extremities at the radial artery Neuro oriented x3, moves all extremities and no focal motor deficits Speech: speech normal Psych Psych Narrative: Much more interactive today appears that she is feeling much better, eye contact is good and patient is very pleasant Assessment & Plan Assessment/Plan (1) ST elevation (STEMI) myocardial infarction: PLAN: Plan STEMI -Inferior lateral with proximal RCA lesion status post PCI with ARIADNA to proximal RCA -Continue home aspirin 81 mg daily -Continue Brilinta 90 mg p.o. twice daily -Continue home losartan -Continue home Coreg but decreased to 12.5 p.o. twice daily by cardiology -Heart rate currently will allow for up titration -Unable to utilize statin due to history of statin intolerance--> continue Zetia -Check echocardiogram-will be done on Monday -Total cholesterol was 164/LDL 97/HDL 50/triglycerides 86 -LDL is above goal however patient is statin intolerant -A1c of 5.4 -Consult cardiac rehab pending -Consult dietitian pending -Cardiology is following-appreciate input -Only minimal reperfusion ectopy with a short 4 beat run of wide-complex tachycardia at about 12:30 AM -Magnesium is at goal greater than 2 and potassium is low so replacing at this time Hypokalemia -Mild at 3.3 -40 mEq p.o. potassium given -Recheck in a.m. -Magnesium is 2.1 History of renal artery stenosis -Bilateral renal artery stenosis less than 60% from renal duplex scan on December 2023 -Continue treatment to manage secondary risk factors CAD/essential hypertension/hyperlipidemia -Previous PCI with ARIADNA in 2019 as noted in HPI -Per cardiology documentation it does appear she has quite a bit of uncontrolled blood pressure -Coreg decreased per cardiology and no room for up titration with current heart rates in the 60s -Increase hydralazine from 50 3 times daily to 100 mg 3 times daily as blood pressures are still markedly elevated -Continue losartan 50 mg -Will consider alpha blockade if not at goal with the above mL -Ideally goal blood pressure is 130/80 or less -Patient unfortunately has significant side effects with leg muscle weakness on statins -Continue Zetia Peripheral arterial disease -Patient has known renal artery stenosis as well as superior mesenteric and inferior mesenteric stenosis -Unable to tolerate statin -Continue to optimize blood pressure as able Osteoporosis -Management per primary service -Has been on Prolia -Continue vitamin D supplementation GERD -Continue home PPI once verified Chronic hyponatremia -Continue home sodium supplementation -Sodium 129 on presentation--> 132 today -Baseline sodium appears to run between 129 and 132 as of recently -Repeat lab in a.m. Osteoarthritis -As needed Tylenol Anxiety/depression -If verified will restart home Xanax and BuSpar Seasonal allergies -If verified continue home levocetirizine Obesity -BMI is 30.8 -Recommend weight loss -Complicates treatment, prognosis, outcomes DVT prophylaxis -Daily Lovenox CODE STATUS -DNR CCA with no intubation as verified with patient at the time of evaluation Charges/Coding Visit Charges Inpatient E&M: 06433 Subs Hosp L2
[2024-05-12] MEDS: Potassium Chloride Oral Tablet 20 MEQ 60 MEQ PO (09:53)
[2024-05-12] MEDS: Ascorbic Acid 500 MG Tablet PO (09:55)
[2024-05-12] MEDS: Aspirin E.C. 81 MG Tablet PO (09:55)
[2024-05-12] MEDS: busPIRone 5 MG Tablet 7.5 MG PO (09:55)
[2024-05-12] MEDS: Losartan Potassium 50 MG Tablet PO (09:56)
[2024-05-12] MEDS: Sodium Chloride 1 GM Tablet 2 GM PO ×2 (09:57→21:03)
[2024-05-12] MEDS: Cholecalciferol (VIT D3) 25 MCG TABLET (1,000 UNITS) PO (09:57)
[2024-05-12] MEDS: Ezetimibe 10 MG Tablet PO (09:57)
[2024-05-12] MEDS: Pantoprazole Sodium 40 MG Tablet PO (09:57)
--- NOTE | 2024-05-12 10:00 | EKG12_ITS ---
Test Reason : PCI Blood Pressure : */* mmHG Vent. Rate : 67 BPM Atrial Rate : 67 BPM P-R Int : 196 ms QRS Dur : 86 ms QT Int : 440 ms P-R-T Axes : 38 -28 16 degrees QTcB Int : 464 ms Normal sinus rhythm Left ventricular hypertrophy with repolarization abnormality ( R in aVL , [place] product ) Abnormal ECG When compared with ECG of 12-May-2024 15:29, MANUAL COMPARISON REQUIRED DATA IS UNCONFIRMED Confirmed by YESSI SILVER, ANNA ([id number]), assistant editor JESSICA ANGUIANO ([id number]) on 05/13/2024 12:37:46 PM Referred By: Jones Bolaños Confirmed By: ANNA DICKSON MD
[2024-05-12] MEDS: Ondansetron 4 MG/2 ML Vial IV (10:17)
--- NOTE | 2024-05-12 13:11 | PN.CARD_ITS ---
Subjective Subjective Patient seen and evaluated at bedside family were at bedside at time of evaluation She was transferred from ICU to progressive care unit She been stable she does not have any active chest pain she had mild symptoms of nausea. While in ICU. Also noted bradycardia. Cardiac rhythm improved as well as her blood pressure she been stable she does not have any symptoms of chest pain. Objective Data Vital Signs: Vital Signs Temp Pulse Resp BP Pulse Ox O2 Del Method 98.0 F 73 21 H 180/69 H 95 Room Air 05/12/24 12:00 05/12/24 12:00 05/12/24 12:00 05/12/24 12:00 05/12/24 12:00 05/12/24 12:00 Oxygen Delivery Method Room Air Weight: 152 lb 8.958 oz Body Mass Index (BMI) 30.7 Intake & Output: Intake and Output for Last 24 Hours 05/10/24 05/11/24 05/12/24 23:59 23:59 23:59 Intake Total 486.74 / 486.74 1357.02 / 1357.02 Output Total 200 / 625 443 / 443 Balance 286.74 / -138.26 914.02 / 914.02 Lab / Micro Data 05/12/24 04:44 05/12/24 04:44 Labs: Laboratory Results - last 24 hr 05/11/24 13:00: WBC 10.6, RBC 3.98 L, Hgb 12.2, Hct 35.4 L, MCV 88.9, MCH 30.7, MCHC 34.5, RDW Std Deviation 42.0, RDW Coeff of Lucía 12.9, Plt Count 283, MPV 9.6 05/11/24 13:10: Activated Clotting Time 256 H 05/12/24 03:25: WBC Cancelled, Corrected WBC Cancelled, RBC Cancelled, Hgb Cancelled, Hct Cancelled, MCV Cancelled, MCH Cancelled, MCHC Cancelled, RDW Std Deviation Cancelled, RDW Coeff of Lucía Cancelled, Plt Count Cancelled, MPV Cancelled, Immature Gran % (Auto) Cancelled, Neut % (Auto) Cancelled, Lymph % (Auto) Cancelled, [place] % (Auto) Cancelled, Eos % (Auto) Cancelled, Baso % (Auto) Cancelled, Absolute Neuts (auto) Cancelled, Absolute Lymphs (auto) Cancelled, Total Counted Cancelled, Neutrophils % (Manual) Cancelled, Band Neutrophils % Cancelled, Lymphocytes % (Manual) Cancelled, Monocytes % (Manual) Cancelled, Eosinophils % (Manual) Cancelled, Basophils % (Manual) Cancelled, Metamyelocytes % Cancelled, Myelocytes % Cancelled, Promyelocytes % Cancelled, Blast Cells % Cancelled, Plasma Cell % (Manual) Cancelled, Other Cells % Cancelled, Nucleated RBC % Cancelled, Nucleated RBCs/100 WBC Cancelled, Differential Comment Cancelled, Diff Path Review Cancelled, Hypersegmented Neuts Cancelled, Atypical Lymphocytes Cancelled, Reactive Lymphocytes Cancelled, Smudge Cells Cancelled, Toxic Granulation Cancelled, Toxic Vacuolation Cancelled, Dohle Bodies Cancelled, Sheila Rods Cancelled, Platelet Estimate Cancelled, Plt Morphology Comment Cancelled, RBC Morphology Cancelled 05/12/24 03:25: RBC Morphology Cancelled, Polychromasia Cancelled, Hypochromasia Cancelled, Basophilic Stippling Cancelled, Anisocytosis Cancelled, Microcytosis Cancelled, Macrocytosis Cancelled, Spherocytes Cancelled, Sickle Cells Cancelled, Target Cells Cancelled, Tear Drop Cells Cancelled, Ovalocytes Cancelled, Stomatocytes Cancelled, [place] Bodies Cancelled, [place] Cells Cancelled, Bite Cells Cancelled, Crenated Cell Cancelled, Acanthocytes (Spur) Cancelled, Rouleaux Cancelled, Schistocytes Cancelled, Sodium Cancelled, Potassium Cancelled, Chloride Cancelled, Carbon Dioxide Cancelled, Anion Gap Cancelled, BUN Cancelled, Creatinine Cancelled, Estim Creat Clear Calc Cancelled, Est GFR (MDRD) Af Amer Cancelled, Est GFR (MDRD) Non-Af Cancelled, BUN/Creatinine Ratio Cancelled, Glucose Cancelled, Hemoglobin A1c Cancelled, Calcium Cancelled, Phosphorus Cancelled, Magnesium Cancelled, Total Bilirubin Cancelled, AST Cancelled, ALT Cancelled, Alkaline Phosphatase Cancelled, Total Protein Cancelled, Albumin Cancelled, Globulin Cancelled, Albumin/Globulin Ratio Cancelled, Triglycerides Cancelled, Cholesterol Cancelled, LDL Cholesterol Cancelled, VLDL Cholesterol Cancelled, HDL Cholesterol Cancelled 05/12/24 04:44: WBC 5.9, RBC 3.48 L, Hgb 10.6 L, Hct 31.1 L, MCV 89.4, MCH 30.5, MCHC 34.1, RDW Std Deviation 42.6, RDW Coeff of Lucía 13.0, Plt Count 256, MPV 9.6, Immature Gran % (Auto) 0.500, Neut % (Auto) 53.2, Lymph % (Auto) 33.8, [place] % (Auto) 11.2 H, Eos % (Auto) 1.0, Baso % (Auto) 0.3, Absolute Neuts (auto) 3.1, Absolute Lymphs (auto) 2.00, Nucleated RBC % 0, Sodium 132 L, Potassium 3.3 L, Chloride 98, Carbon Dioxide 27.0, Anion Gap 7, BUN 17, Creatinine 0.78, Estim Creat Clear Calc 49.28, Est GFR (MDRD) Af Amer 91, Est GFR (MDRD) Non-Af 76, B UN/Creatinine Ratio 21.8 H, Glucose 95, Hemoglobin A1c 5.4, Calcium 8.5, Phosphorus 3.9, Magnesium 2.1, Total Bilirubin 0.50, AST 26, ALT 16, Alkaline Phosphatase 82, Total Protein 6.1 L, Albumin 3.0 L, Globulin 3.1, Albumin/Globulin Ratio 1.0, Triglycerides 86, Cholesterol 164, LDL Cholesterol 97, VLDL Cholesterol 17, HDL Cholesterol 50 Cardiology Labs/Tests 05/11/24 13:00: WBC 10.6, RBC 3.98 L, Hgb 12.2, Hct 35.4 L, MCV 88.9, MCH 30.7, MCHC 34.5, Plt Count 283, MPV 9.6 05/12/24 03:25: WBC Cancelled, Corrected WBC Cancelled, RBC Cancelled, Hgb Cancelled, Hct Cancelled, MCV Cancelled, MCH Cancelled, MCHC Cancelled, Plt Count Cancelled, MPV Cancelled, Immature Gran % (Auto) Cancelled, Neut % (Auto) Cancelled, Lymph % (Auto) Cancelled, [place] % (Auto) Cancelled, Eos % (Auto) Cancelled, Baso % (Auto) Cancelled, Absolute Neuts (auto) Cancelled, Total Counted Cancelled, Neutrophils % (Manual) Cancelled, Band Neutrophils % Cancelled, Lymphocytes % (Manual) Cancelled, Monocytes % (Manual) Cancelled, Eosinophils % (Manual) Cancelled, Basophils % (Manual) Cancelled, Metamyelocytes % Cancelled, Myelocytes % Cancelled, Promyelocytes % Cancelled, Blast Cells % Cancelled, Plasma Cell % (Manual) Cancelled, Other Cells % Cancelled, Nucleated RBC % Cancelled, Sodium Cancelled, Potassium Cancelled, Chloride Cancelled, Carbon Dioxide Cancelled, Anion Gap Cancelled, BUN Cancelled, Creatinine Cancelled, Est GFR (MDRD) Af Amer Cancelled, Est GFR (MDRD) Non-Af Cancelled, BUN/Creatinine Ratio Cancelled, Glucose Cancelled, Hemoglobin A1c Cancelled, Calcium Cancelled, Phosphorus Cancelled, Magnesium Cancelled, Total Bilirubin Cancelled, Triglycerides Cancelled, Cholesterol Cancelled, LDL Cholesterol Cancelled, VLDL Cholesterol Cancelled, HDL Cholesterol Cancelled 05/12/24 04:44: WBC 5.9, RBC 3.48 L, Hgb 10.6 L, Hct 31.1 L, MCV 89.4, MCH 30.5, MCHC 34.1, Plt Count 256, MPV 9.6, Immature Gran % (Auto) 0.500, Neut % (Auto) 53.2, Lymph % (Auto) 33.8, [place] % (Auto) 11.2 H, Eos % (Auto) 1.0, Baso % (Auto) 0.3, Absolute Neuts (auto) 3.1, Nucleated RBC % 0, Sodium 132 L, Potassium 3.3 L , Chloride 98, Carbon Dioxide 27.0, Anion Gap 7, BUN 17, Creatinine 0.78, Est GFR (MDRD) Af Amer 91, Est GFR (MDRD) Non-Af 76, BUN/Creatinine Ratio 21.8 H, Glucose 95, Hemoglobin A1c 5.4, Calcium 8.5, Phosphorus 3.9, Magnesium 2.1, Total Bilirubin 0.50, Triglycerides 86, Cholesterol 164, LDL Cholesterol 97, VLDL Cholesterol 17, HDL Cholesterol 50 Rhythm: EKG: ECHO: Stress Test: Cardiac Cath: PCI: CT Surgery: Holter monitor: EPS: PPM: CXR: Chest CT Scan: Assessment & Plan Assessment/Plan (1) Presence of stent in coronary artery: (2) Atherosclerotic heart disease of [place] coronary artery without angina pectoris: QUALIFIERS: [place] vs. transplanted heart: [place] heart Qualified Code(s): I25.10 - Atherosclerotic heart disease of [place] coronary artery without angina pectoris (3) PAD (peripheral artery disease): (4) CKD (chronic kidney disease): QUALIFIERS: Chronic kidney disease stage: stage 2 (mild) Q ualified Code(s): N18.2 - Chronic kidney disease, stage 2 (mild) (5) ST elevation (STEMI) myocardial infarction: PLAN: Cardiac care plan recommendations; 80-year-old patient presented with symptoms of chest pain With ST elevation in the inferior leads Underwent emergency cardiac catheterization Which revealed patency of proximal LAD stent as well as a OM stent The culprit lesion was the nondominant RCA Successful PCI of the RCA was performed using drug-eluting stent. Postprocedure she was monitored in ICU and she was stable clinically. Review all her current medication she had a history of passive care reflux disease Hypertension History of carotid endarterectomy. History of CAD with prior PCI and stent of LAD in April 2020 using drug- eluting stent to the proximal LAD as well she had a history of stent to the OM1 From cardiac standpoint recommendation would be to continue on dual antiplatelet with Brilinta aspirin To avoid beta-juanpablo as she had slow heart rate while in ICU. With the plan of monitoring and outpatient cardiac follow-up with event monitor versus loop recorder. Continue on a statin. As well as ARB. Also will schedule for cardiac rehab program here at [facility]. Echocardiogram will be performed tomorrow and patient if stable she can be discharged with the plan of follow-up as an outpatient. Jones Bolaños MD,FACC,[facility]
[2024-05-12] MEDS: hydrALAZINE 50 MG Tablet 100 MG PO ×2 (14:43→21:00)
[2024-05-12 14:48] LABS: Anion Gap 7 (5-15); BUN 15 mg/dL (7-18); BUN/Creat Ratio 18.5 RATIO (10-20); Calcium,Total 8.4 mg/dL (8.5-10.1); Chloride 100 mmol/L (98-107); Creatinine, Serum 0.81 mg/dL (0.55-1.02); EST Glomerular Filtration Rate 72 mL/min (>60); Est Glom Filt Rate - Afr Amer 87 mL/min (>60); Estimated Creatinine Clearance 48.08 ml/min; Glucose 102 mg/dL (74-106); Potassium 3.9 mmol/L (3.5-5.1); Sodium Level 132 mmol/L (136-145)
--- NOTE | 2024-05-12 15:28 | EKG12_ITS ---
Test Reason : am ekg Blood Pressure : */* mmHG Vent. Rate : 65 BPM Atrial Rate : 65 BPM P-R Int : 184 ms QRS Dur : 90 ms QT Int : 446 ms P-R-T Axes : 62 -29 77 degrees QTcB Int : 463 ms Normal sinus rhythm Moderate voltage criteria for LVH, may be normal variant ( R in aVL , [place] product ) Nonspecific ST and T wave abnormality Abnormal ECG When compared with ECG of 11-May-2024 13:25, MANUAL COMPARISON REQUIRED DATA IS UNCONFIRMED Confirmed by YESSI SILVER, ANNA ([id number]), web content editor JESSICA ANGUIANO ([id number]) on 05/13/2024 12:40:17 PM Referred By: Jones Bolaños Confirmed By: ANNA DICKSON MD
--- NOTE | 2024-05-12 15:29 | EKG12_ITS ---
Test Reason : CP Blood Pressure : */* mmHG Vent. Rate : 80 BPM Atrial Rate : 80 BPM P-R Int : 172 ms QRS Dur : 88 ms QT Int : 404 ms P-R-T Axes : 56 -29 52 degrees QTcB Int : 465 ms Normal sinus rhythm Left ventricular hypertrophy with repolarization abnormality ( R in aVL , [place] product ) Abnormal ECG When compared with ECG of 12-May-2024 05:22, MANUAL COMPARISON REQUIRED DATA IS UNCONFIRMED Confirmed by YESSI SILVER, ANNA ([id number]), publishing editor JESSICA ANGUIANO ([id number]) on 05/13/2024 12:44:06 PM Referred By: Jones Bolaños Confirmed By: ANNA DICKSON MD
[2024-05-12] MEDS: ALPRAZolam 0.5 MG Tablet PO (15:52)
[2024-05-12] MEDS: cloNIDine HCl 0.2 MG Tablet PO (20:59)
[2024-05-12] MEDS: Carvedilol 12.5 MG Tablet PO (21:00)
[2024-05-12] MEDS: TICAGRELOR 90 MG TABLET PO (21:00)
[2024-05-13 04:00] VITALS: BP 117/49; PULSE 66; RESP 18; TEMP 35.9; O2SAT 97
[2024-05-13 05:50] VITALS: BP 132/53; PULSE 64
[2024-05-13] MEDS: cloNIDine HCl 0.2 MG Tablet PO (05:50)
[2024-05-13] MEDS: hydrALAZINE 50 MG Tablet 100 MG PO (05:50)
--- NOTE | 2024-05-13 06:37 | PN.CARD_ITS ---
Subjective Subjective Patient seen and evaluated. Appears to be doing better this morning Objective Data Vital Signs: Vital Signs Temp Pulse Resp BP Pulse Ox O2 Del Method 96.7 F L 64 18 132/53 H 97 Room Air 05/13/24 04:00 05/13/24 05:50 05/13/24 04:00 05/13/24 05:50 05/13/24 04:00 05/13/24 04:00 Oxygen Delivery Method Room Air Weight: 152 lb 8.958 oz Body Mass Index (BMI) 30.7 Intake & Output: Intake and Output for Last 24 Hours 05/11/24 05/12/24 05/13/24 23:59 23:59 23:59 Intake Total 486.74 / 486.74 2467.02 / 2467.02 600 / 600 Output Total 200 / 625 443 / 443 Balance 286.74 / -138.26 2024.02 / 2023.02 600 / 600 Lab / Micro Data 05/12/24 04:44 05/12/24 14:10 Labs: Laboratory Results - last 24 hr 05/12/24 04:44: Hemoglobin A1c 5.4 05/12/24 14:10: Sodium 132 L, Potassium 3.9, Chloride 100, Carbon Dioxide 26.0, Anion Gap 7, BUN 15, Creatinine 0.81, Estim Creat Clear Calc 48.08, Est GFR (MDRD) Af Amer 87, Est GFR (MDRD) Non-Af 72, BUN/Creatinine Ratio 18.5, Glucose 102, Calcium 8.4 L Cardiology Labs/Tests 05/12/24 04:44: Hemoglobin A1c 5.4 05/12/24 14:10: Sodium 132 L, Potassium 3.9, Chloride 100, Carbon Dioxide 26.0, Anion Gap 7, BUN 15, Creatinine 0.81, Est GFR (MDRD) Af Amer 87, Est GFR (MDRD) Non-Af 72, BUN/Creatinine Ratio 18.5, Glucose 102, Calcium 8.4 L Rhythm: EKG: ECHO: Stress Test: Cardiac Cath: PCI: CT Surgery: Holter monitor: EPS: PPM: CXR: Chest CT Scan: Physical Exam Const alert, oriented x3, no apparent distress and well nourished; Negative for average body habitus or healthy appearing HEENT normocephalic, head/scalp atraumatic, hearing grossly normal bilaterally and moist oral mucous membranes HEENT Narrative: Dentition is poor, Mallampati is 2-3, no thrush Resp normal respiratory effort, no retractions, no use of accessory muscles and clear to auscultation bilaterally Auscultation: Negative for rales, rhonchi or wheezes Cardio regular rate, regular rhythm, S1 normal heart sound, S2 normal heart sound, no murmurs, no rub, no gallops and no clicks GI normal to inspection, nondistended, normoactive bowel sounds, soft to palpation and non-tender Extremity no clubbing, cyanosis or edema Extremity Narrative: Pedal pulses are 2+ bilaterally, no significant tenderness over the right radial artery area status post cardiac catheterization, pulses are 2+ bilaterally upper extremities at the radial artery Neuro oriented x3, moves all extremities and no focal motor deficits Speech: speech normal Psych Psych Narrative: Much more interactive today appears that she is feeling much better, eye contact is good and patient is very pleasant Assessment & Plan Assessment/Plan (1) ST elevation (STEMI) myocardial infarction: PLAN: Patient had an ST elevation myocardial infarction involving the right coronary artery. The patient will undergo an echocardiogram this morning. She appears to doing quite well and is on guideline directed medical therapy as follows: Aspirin, Ticagrelor, Beta-juanpablo, High intensity statin. Depending on the results of the echocardiogram the patient will be discharged later today for outpatient follow-up. Cardiac rehabilitation also emphasized. (2) Hypertension: QUALIFIERS: Hypertension type: primary hypertension Qualified Code(s): I10 - Essential (primary) hypertension PLAN: Patient appears to have much better control of the blood pressure today on multiple medical therapy. (3) Presence of stent in coronary artery: PLAN: Patient is status post previous angioplasty and stenting of the left anterior descending artery which is noted to be patent and the recent right coronary artery. (4) HLD (hyperlipidemia): QUALIFIERS: Hyperlipidemia type: unspecified Qualified Code(s): E 78.5 - Hyperlipidemia, unspecified PLAN: History of hyperlipidemia the patient has experienced myalgias with high intensity statin. Will attempt ezetimibe.
--- NOTE | 2024-05-13 07:27 | CRPHASE1_ITS ---
Patient Communication Patient Information Former Patient:: Phase I PHII Cardiac Rehab Discussed with Patient:: Yes Guide to Cardiac Rehab Given to Patient:: Yes Cardiac Rehab Facility Choice List Given to Patient:: Yes Communication to Cardiac Rehab Sessions:: 36 sessions - 3 days/wk, 12 weeks Cardiac Rehabilitation Info Program Information Cardiac Rehabilitation Program Information: Cardiac Rehab The cardiac rehab team at [facility] consists of highly skilled exercise physiologists, nurses, respiratory therapists and physicians working together with you. Our purpose is to help you have a full recovery and achieve the goals you set for yourself. Over the years many of our patients have returned to activities they assumed they would never do again! We can help restore your confidence and motivation to make lifestyle changes that can have a significant impact on your health and quality of life! We can help answer questions and concerns you may have about exercise, lifestyle, medications, diet, stress and anxiety which are common following a hospitalization. WE monitor ECG and vital signs during exercise and discuss your progress with you and report to your physician(s). Cardiac Rehab is proven to help reduce readmissions, improve functional capacity and lower recurrence of problems with your heart. Our Cardiac Rehab program is Certified by the [place] [employer] Pulmonary [employer] (AACVPR) and Accredited by the [employer] through our [facility]. You can contact us at . We invite you to call us with your questions or to get started in our program. If you have other questions or concerns be sure to ask your physician/provider during your follow-up visit. WE look forward to seeing you!
--- NOTE | 2024-05-13 07:27 | CRPH1.INST_ITS ---
General Education Discussed with Patient CAD and cardiac anatomy and function:: Patient communicates acknowledgment Explanation of diagnoses and procedures:: Patient communicates acknowledgment Sign/Symptoms of DC:: Patient communicates acknowledgment Antiplatelet therapy: Patient communicates acknowledgment Proper use of NTG-SL: Patient communicates acknowledgment Emergency procedures and activation of EMS: Patient communicates acknowledgment Compliance of all prescribed medications: Patient communicates acknowledgment Smoking Risk Factors Patient Nicotine/Smoking Risk Factors Are:: Never smoked Response Code Nicotine/Smoking Response Code:: Patient communicates acknowledgment Dyslipidemia Risk Factors Patient Dyslipidemia Risk Factors Are:: Total Cholesterol, Triglycerides, HDL and LDL Recommendations Recommendations Include:: Lipid profile not available Response Code Dyslipidemia Response Code:: Patient communicates acknowledgment Overweight/Obesity Risk Factors Patient Overweight/Obesity Risk Factors Are:: Overweight = 26-29 and Obesity - > or = 30 Recommendations Recommendations Include:: Weight loss of 5-10%, Reduced calorie diet and Exe rcise 5-7 times/week Response Code Overweight/Obesity:: Patient communicates acknowledgment Hypertension Recommendations Recommendations Include:: Decrease/maintain normal body weight Response Code Hypertension:: Patient communicates acknowledgment Heart Disease Risk Factors Patient Heart Disease Risk Factors Are:: Previous cardiac event Recommendations Recommendations Include:: Educated family members of their risk and Educated family members of importance of prevention of heart disease Response Code Heart Disease Response Code:: Patient communicates acknowledgment Diabetes Risk Factors Patient Diabetes Risk Factors Are:: Elevated blood sugars Recommendations Recommendations Include:: Maintain fasting blood sugars 70-110 md/dL, Maintain HgbA1c of 6% or less, Monitor blood sugar as prescribed, Diabetic dietary guidelines and Decrease/maintain body weight Response Code Diabetes:: Patient communicates acknowledgment Metabolic Syndrome Risk Factors Patient Metabolic Syndrome Risk Factors Are [3 of 5]:: Fasting blood sugar > 100 mg/dL, Waist circumference > 35 [female] or 40 [male], High triglyceride >150, Hypertension and Low HDL <40 [male] or < 50 [female] Recommendations Recommendations Include:: Does not meet criteria Response Code Metabolic Syndrome Response Code:: Patient communicates acknowledgment Sedentary Risk Factors Patient Sedentary Risk Factors Are:: Lack of regular exercise Recommendations Recommendations Include:: Aerobic exercise 5-7 times/week for 20-30 minutes continuously, Benefits of regular exercise, Discussed home walking program and Monitored Outpatient Cardiac Rehab Response Code Sedentary Response Code:: Patient communicates acknowledgment Stress Risk Factors Patient Stress Risk Factors Are:: Patient denies stress as a risk factor Recommendations Recommendations Include:: Identification of stressors, and assessment of coping skills and Stress management techniques Response Code Stress Response Code:: Patient communicates acknowledgment
[2024-05-13] MEDS: Ondansetron 4 MG/2 ML Vial IV (07:47)
[2024-05-13] MEDS: Acetaminophen 325 MG Tablet 650 MG PO (07:47)
[2024-05-13 07:52] VITALS: BP 136/57; PULSE 66; RESP 12; TEMP 36.7; O2SAT 94
--- NOTE | 2024-05-13 08:27 | ECQM.STEMI ---
STEMI STEMI ED Door Time / Other REG STEMI EKG Time (1) ST elevation (STEMI) myocardial infarction: Acute 05/11/24 11:22 Balloon/Aspiration Date-Time Date of Balloon/Aspiration:: 05/11/24 Time of Balloon/Aspiration:: 12:18
[2024-05-13] MEDS: Senna/Docusate Sodium 1 Tablet 2 TABLET PO (09:14)
[2024-05-13] MEDS: Aspirin E.C. 81 MG Tablet PO (09:15)
[2024-05-13] MEDS: TICAGRELOR 90 MG TABLET PO ×2 (09:16→22:12)
[2024-05-13] MEDS: busPIRone 5 MG Tablet 7.5 MG PO (09:16)
[2024-05-13] MEDS: Carvedilol 12.5 MG Tablet PO (09:17)
[2024-05-13] MEDS: Ascorbic Acid 500 MG Tablet PO (09:17)
[2024-05-13] MEDS: Losartan Potassium 50 MG Tablet PO (09:17)
[2024-05-13] MEDS: Ezetimibe 10 MG Tablet PO (09:18)
[2024-05-13] MEDS: Pantoprazole Sodium 40 MG Tablet PO (09:18)
[2024-05-13] MEDS: Cholecalciferol (VIT D3) 25 MCG TABLET (1,000 UNITS) PO (09:19)
--- NOTE | 2024-05-13 09:45 | CASEMGMT ---
YESSY GANDHI Assessment: Face to Face with pt for initial transition planning/care coordination assessment. RN HIRAM introduced self and role at [facility], pt voices understanding and consents to assessment. Pt is A&O x4 and answers all questions appropriately at this time. Pt lying in bed in no distress. Care providers, pharmacy, and demographics verified/updated. Strata: 3 Admitting Dx: STEMI PCP: Jayashree Specialists: [facility] Preferred Pharmacy: [facility] Insurance: [employer] Prescription Benefit: yes LNOK: Pat, Niece; Dory, Granddaughter Living Arrangements: Pt lives with granddaughter in a 1 story with 0 steps to enter. ADLs: Pt requires assistance with cooking and cleaning. Transportation: Pt drives self and denies concerns with transportation. DME: Walker, shower seat. HHC/SNF: States previously used [facility]. Pt states no concerns with going home at time of dc. Pt states no further concerns/needs. CM to follow. Advised pt to ask CM if any further question/concerns/needs arise, voices understanding. Pt Goal: Home Plan: Home with family support. Caprice KRISHNAMURTHY CM
--- NOTE | 2024-05-13 10:00 | EKG12_ITS ---
Test Reason : pci Blood Pressure : */* mmHG Vent. Rate : 61 BPM Atrial Rate : 61 BPM P-R Int : 206 ms QRS Dur : 82 ms QT Int : 438 ms P-R-T Axes : 39 -37 84 degrees QTcB Int : 440 ms Poor data quality, interpretation may be adversely affected Normal sinus rhythm Left axis deviation Left ventricular hypertrophy with repolarization abnormality ( R in aVL , Ju[place]o product ) Abnormal ECG When compared with ECG of 11-May-2024 11:26, MANUAL COMPARISON REQUIRED DATA IS UNCONFIRMED Confirmed by YESSI SILVER, ANNA ([id number]), metropolitan editor JESSICA ANGUIANO ([id number]) on 05/13/2024 12:40:42 PM Referred By: Jones Bolaños Confirmed By: ANNA DICKSON MD
[2024-05-13 10:10] VITALS: BP 113/50; PULSE 66; RESP 16; TEMP 36.5; O2SAT 96
--- NOTE | 2024-05-13 10:25 | PN.HOSP_ITS ---
Reason for Visit Reason for Visit: Diagnoses Hyperlipidemia, unspecified (05/11/24) Essential (primary) hypertension (05/11/24) ST elevation (STEMI) myocardial infarction of unspecified site (05/11/24) Atherosclerotic heart disease of [place] coronary artery without angina pectoris (05/11/24) Peripheral vascular disease, unspecified (05/11/24) Chronic kidney disease, stage 2 (mild) (05/11/24) Presence of coronary angioplasty implant and graft (05/11/24) Subjective Subjective Patient is an 79-year-old female who presented with chest pain and assessment of acute inferior lateral ST segment elevation SC was made underwent emergency left heart catheterization with intervention Objective Data Objective Data Vital Signs: Vital Signs Temp Pulse Resp BP Pulse Ox O2 Del Method 98.1 F 66 12 136/57 H 94 Room Air 05/13/24 07:52 05/13/24 07:52 05/13/24 07:52 05/13/24 07:52 05/13/24 07:52 05/13/24 09:52 Oxygen Delivery Method Room Air Weight: 69.2 kg Body Mass Index (BMI) 30.7 Intake & Output: Intake and Output for Last 24 Hours 05/11/24 05/12/24 05/13/24 23:59 23:59 23:59 Intake Total 486.74 / 486.74 2467.02 / 2467.02 600 / 600 Output Total 200 / 625 443 / 443 Balance 286.74 / -138.26 2024.02 / 2024.02 600 / 600 Lab / Micro Data 05/12/24 04:44 05/12/24 14:10 Labs: Laboratory Results - last 24 hr 05/12/24 14:10: Sodium 132 L, Potassium 3.9, Chloride 100, Carbon Dioxide 26.0, Anion Gap 7, BUN 15, Creatinine 0.81, Estim Creat Clear Calc 48.08, Est GFR (MDRD) Af Amer 87, Est GFR (MDRD) Non-Af 72, BUN/Creatinine Ratio 18.5, Glucose 102, Calcium 8.4 L Physical Exam Narrative GENERAL: cooperative HEENT: Atraumatic; normocephalic EYES; Anicteric, Normal Conjunctiva NECK; supple, normal thyroid, RESPIRATORY: Diminished to auscultation CARDIOVASCULAR: Regular S1 S2, GI: soft, normoactive bowel sounds, : No Renal angle tenderness; EXTREMITIES: No edema, no clubbing, MUSCULOSKELETAL: no muscle wasting NEURO: Awake; no lateralizing signs. SKIN: No Rash PSYCH; Flat affect Assessment & Plan Assessment/Plan (1) ST elevation (STEMI) myocardial infarction: QUALIFIERS: Involved coronary artery: right coronary artery Q ualified Code(s): I21.11 - ST elevation (STEMI) myocardial infarction involving right coronary artery PLAN: Plan Patient is an 79-year-old female who presented with chest pain and assessment of acute inferior lateral ST segment elevation SC was made underwent emergency left heart catheterization with intervention 1. Acute inferior lateral STEMI -Patient underwent emergency left heart catheterization with PCI with ARIADNA toa proximal RCA lesion. Subsequently started on guideline directed medical therapy including aspirin, Brilinta losartan and Coreg. Scheduled to have echo done to assess EF. Patient was not started on statins given her enlarged intolerance 2. Coronary artery disease ? Patient presented with STEMI also has previous history of PCI in 2019 3. Hypokalemia ? Corrected per protocol 4. Chronic hyponatremia ? Patient has history of mild hyponatremia sodium as of 05/12/2024 was 132 we will continue with monitoring 5. Peripheral arterial disease ? With history of renal artery stenosis as well as superior mesenteric and inferior mesenteric stenosis. Patient is on DAPT apparently intolerant to statins we will continue with monitoring 6. Hypertension ? Blood pressure controlled, home medications continued with dose adjustment as needed 7. Dyslipidemia ? Patient has intolerance to statin therapy patient is on Zetia 8. Osteoporosis -vitamin D supplementation 9. GERD ? On PPI 10. Osteoarthritis ? Pain meds as needed 11. Depression with anxiety ? Patient is on Xanax as well as BuSpar 12. Seasonal allergies ? Patient is on levocetirizine 13. Class I obesity -BMI is 30.8, weight loss recommended 14. Physical deconditioning ? Requested for PT OT eval and social problems specialist to assist with discharge planning 15. DVT prophylaxis -SC Lovenox Time spent in the patient's overall evaluation,decision-making process, review of diagnostic data, adjustment of management, discussion with other providers, nursing nursing and ancillary staff involved in patient's care documentation, 50 Minutes Charges/Coding Visit Charges Inpatient E&M: 40341 Subs Hosp L3
[2024-05-13 14:00] VITALS: BP 114/51; PULSE 69; RESP 12; TEMP 36.1; O2SAT 95
--- NOTE | 2024-05-13 14:54 | CASEMGMT ---
Discharge Planning A list of?HH providers including quality and resource use data and consistent with the patient's preferred geographic region, medical needs, and insurance network was created in [facility] Guide.? This list was provided to the pt. Leola Colby, Discharge Planning Asst.
--- NOTE | 2024-05-13 15:35 | CHAPLAIN ---
Type of Pastoral Visit _x__ Initial Visit ___ Follow-up Visit ___ On-call Visit ___ General Patient Visit ___ Spiritual Assessment ___ Family Conference ___ Bereavement ___ Rapid Response ___ Code Blue ___ Other (describe below) Pastoral Care Referral From _x__ Patient ___ Family ___ Nurse ___ Physician ___ Americanization Teacher ___ Curbing Stonecutter ___ Other (describe below) Sacrament/Intervention ___ Active listening ___ Anointing ___ Mosque ___ Bereavement ___ Communion ___ Leeann exploration ___ ___ Life review _x__ Prayer ___ Reconciliation ___ Sacrament of Sick _x__ Supportive presence ___ Wedding ___ Other (describe below) Pastoral Comments patient is sleeping in her chair but is awakened by her name; pt states that she has been unable to sleep due to many interruptions in the room; pt is offered opportunity to sleep but asked if she needed anything; pt says that she would like a prayer first
[2024-05-13] MEDS: Sodium Chloride 1 GM Tablet PO (17:21)
[2024-05-13 19:47] VITALS: BP 125/52; PULSE 69; RESP 16; TEMP 36.6; O2SAT 94
[2024-05-13] MEDS: 0.9% Saline Lock 10 ML Syringe IV (22:18)
[2024-05-14 01:33] VITALS: BP 123/52; PULSE 66; RESP 18; TEMP 35.8; O2SAT 94
[2024-05-14 03:28] VITALS: BMI 30.6
[2024-05-14 05:19] VITALS: BP 152/58; PULSE 67; RESP 16; TEMP 36.3; O2SAT 95
[2024-05-14 05:25] VITALS: BP 152/58; PULSE 67
[2024-05-14] MEDS: hydrALAZINE 50 MG Tablet 100 MG PO (05:25)
[2024-05-14] MEDS: cloNIDine HCl 0.2 MG Tablet PO (05:27)
[2024-05-14 06:59] LABS: Absolute Lymphocyte Count 1.83 X10^3/uL (0.83-4.51); Absolute Neutrophil Count 4.1 X10^3/uL (2.0-7.7); Basophil# 0.02 X10^3/uL; Basophil% 0.3 % (0-1); Eosinophil# 0.13 X10^3/uL; Eosinophils% 1.9 % (0-5); Hematocrit 31.7 % (37-47); Hemoglobin 10.2 g/dL (12.0-15.0); Lymphocyte # 1.83 X10^3/ul (0.83-4.51); Lymphocyte % 26.3 % (19-41); Mean Corp Hgb Conc 32.2 g/dL (32-36); Mean Corpuscular Hgb 29.7 pg (27.0-32.0); Mean Corpuscular Volume 92.4 fL (81-99); Mean Platelet Vol. 10.1 fl (6.2-12.0); Monocyte# 0.88 X10^3/uL; Monocyte% 12.6 % (0-10); NRBC Flagged by Analyzer 0 % (0-5); Neutrophil # 4.06 X10^3/uL (2.7-7.7); Neutrophil % 58.3 % (47-70); Platelet Count 246 K/mm3 (150-450); RBC Distribution Width CV 13.3 % (11.6-14.6); RBC Distribution Width SD 45.3 fl (35.1-43.9); Red Blood Count 3.43 M/mm3 (4.2-5.4)
[2024-05-14 07:32] LABS: Anion Gap 10 (5-15); BUN 23 mg/dL (7-18); BUN/Creat Ratio 19.8 RATIO (10-20); Calcium,Total 8.2 mg/dL (8.5-10.1); Chloride 96 mmol/L (98-107); Creatinine, Serum 1.16 mg/dL (0.55-1.02); EST Glomerular Filtration Rate 48 mL/min (>60); Est Glom Filt Rate - Afr Amer 58 mL/min (>60); Estimated Creatinine Clearance 33.45 ml/min; Glucose 98 mg/dL (74-106); Magnesium 1.9 mg/dL (1.6-2.6); Phosphorus 3.1 mg/dL (2.5-4.9); Potassium 3.4 mmol/L (3.5-5.1); Sodium Level 127 mmol/L (136-145)
[2024-05-14 08:13] VITALS: BP 130/46; PULSE 66; RESP 12; TEMP 36.3; O2SAT 95
--- NOTE | 2024-05-14 08:13 | PCM.DC.SUM ---
Providers Date of Admission: 05/11/24 Date of Discharge: 05/14/24 Primary Care Physician: Dr. Aracely Blanc MD Consultations 05/11/24 15:58 Consult: Cardiology Routine Consulting Provider: Jones Bolaños Reason for Consult: STEMI EMERGENT Consult: Yes MD Notified: Yes Date Notified: 05/11/24 Time Notified: 15:58 Method of Notification: ED Physician Initiated Reason For Visit: STEMI Diagnosis Discharge Diagnosis (1) ST elevation (STEMI) myocardial infarction: Status: Acute Code(s): I21.3 - ST elevation (STEMI) myocardial infarction of unspecified site Qualifiers: Involved coronary artery: right coronary artery Qualified Code(s): I21.11 - ST elevation (STEMI) myocardial infarction involving right coronary artery Plan Patient is an 79-year-old female who presented with chest pain and assessment of acute inferior lateral ST segment elevation ID was made underwent emergency left heart catheterization with intervention 1. Acute inferior lateral STEMI -Patient underwent emergency left heart catheterization with PCI with ARIADNA toa proximal RCA lesion. Subsequently started on guideline directed medical therapy including aspirin, Brilinta losartan and Coreg. Scheduled to have echo done to assess EF. Patient was not started on statins given her enlarged intolerance ? 2D echo demonstrated Normal LV size. The left ventricular ejection fraction is 70 %. Stage 2 diastolic dysfunction. Mild (1+) eccentric mitral valve insufficiency. Infero-Basal: Mildly hypokinetic 2. Coronary artery disease ? Patient presented with STEMI also has previous history of PCI in 2019 3. Hypokalemia ? Corrected per protocol 4. Chronic hyponatremia ? Patient has history of mild hyponatremia sodium as of 05/12/2024 was 132 we will continue with monitoring 5. Peripheral arterial disease ? With history of renal artery stenosis as well as superior mesenteric and inferior mesenteric stenosis. Patient is on DAPT apparently intolerant to statins we will continue with monitoring 6. Hypertension ? Blood pressure controlled, home medications continued with dose adjustment as needed 7. Dyslipidemia ? Patient has intolerance to statin therapy patient is on Zetia 8. Osteoporosis -vitamin D supplementation 9. GERD ? On PPI 10. Osteoarthritis ? Pain meds as needed 11. Depression with anxiety ? Patient is on Xanax as well as BuSpar 12. Seasonal allergies ? Patient is on levocetirizine 13. Class I obesity -BMI is 30.8, weight loss recommended 14. Physical deconditioning ? Requested for PT OT eval and social service director to assist with discharge planning 15. DVT prophylaxis -SC Lovenox Time spent in the patient's overall evaluation,decision-making process, review of diagnostic data, adjustment of management, discussion with other providers, nursing nursing and ancillary staff involved in patient's care documentation, 35 Minutes Medications at Discharge Home Medications cholecalciferol (vitamin D3) 25 mcg (1,000 unit) capsule 25 mcg PO DAILY vit D3 04/09/23 ascorbic acid (vitamin C) 500 mg tablet 500 mg PO DAILYCM general health 30 days #30 tabs 04/12/23 aspirin 81 mg tablet,delayed release 81 mg PO DAILY heart 04/19/23 acetaminophen 500 mg tablet 1,000 mg PO Q8H PRN pain 10/28/23 sennosides 8.6 mg-docusate sodium 50 mg tablet (Stool Softener-Stimulant Laxative) 2 tab PO BID PRN PRN Constipation #0 tabs 10/30/23 digestive enzymes 1 cap PO DAILY digestion aide 11/06/23 sodium chloride 1,000 mg soluble tablet See Rx Instructions PO .COMPLEX low sodium #150 TABLETS 12/07/23 ezetimibe 10 mg tablet 10 mg PO DAILY high cholesterole #30 TABLETS 12/12/23 levocetirizine 5 mg tablet 5 mg PO DAILY anti histamine #90 tabs 01/01/24 pantoprazole 40 mg tablet,delayed release 40 mg PO DAILY acid reflux #90 tabs 01/01/24 potassium chloride 20 mEq tablet,extended release See Rx Instructions .Route .COMPLEX potassium #90 tabs 01/15/24 buspirone 5 mg tablet 7.5 mg PO QDAY for anxiety 03/28/24 estradiol 0.01% (0.1 mg/gram) vaginal cream 0.25 appful vaginal 2XW hormones #42.5 grams 04/02/24 alprazolam 0.5 mg tablet (Xanax) 0.5 mg PO DAILY PRN anxiety #15 tabs 04/09/24 denosumab 60 mg/mL subcutaneous syringe (Prolia) 60 mg subcut [id number] #1 mL 04/09/24 losartan 50 mg tablet 50 mg PO DAILY heart 05/11/24 carvedilol 12.5 mg tablet 12.5 mg PO BID 90 days #180 tabs 05/14/24 hydralazine 50 mg tablet 100 mg (2 x 50 mg) PO TID 90 days #540 tabs 05/14/24 ticagrelor 90 mg tablet (Brilinta) 90 mg PO BID 90 days #180 tabs 05/14/24 Weight / BMI Weight Weight: 68.7 kg Body Mass Index (BMI) 30.6 ABG / Lab / Microbiology Data 05/14/24 05:57 05/14/24 05:57 Laboratory: Laboratory Results - last 24 hr 05/14/24 05:57: WBC 7.0, RBC 3.43 L, Hgb 10.2 L, Hct 31.7 L, MCV 92.4, MCH 29.7, MCHC 32.2 D, RDW Std Deviation 45.3 H, RDW Coeff of Lucía 13.3, Plt Count 246, MPV 10.1, Immature Gran % (Auto) 0.600, Neut % (Auto) 58.3, Lymph % (Auto) 26.3, [place] % (Auto) 12.6 H, Eos % (Auto) 1.9, Baso % (Auto) 0.3, Absolute Neuts (auto) 4.1, Absolute Lymphs (auto) 1.83, Nucleated RBC % 0, Sodium 127 L, Potassium 3.4 L, Chloride 96 L, Carbon Dioxide 21.0, Anion Gap 10, BUN 23 H, Creatinine 1.16 H, Estim Creat Clear Calc 33.45, Est GFR (MDRD) Af Amer 58 L, Est GFR (MDRD) Non-Af 48 L, BUN/Creatinine Ratio 19.8, Glucose 98, Calcium 8.2 L, Phosphorus 3.1, Magnesium 1.9 Radiography Diagnostic Testing: Radiology Impression Echocardiogram 05/11/24 15:54 Interpretation Summary Normal LV size. The left ventricular ejection fraction is 70 %. Stage 2 diastolic dysfunction. Mild (1+) eccentric mitral valve insufficiency. Infero-Basal: Mildly hypokinetic Ordering Physician: Elisa Joshua Referring Physician: Jones Bolaños Performed By: Miranda Blanco RDCS Meaningful Use Info Meaningful Use Meaningful Use Diagnoses (Choose all that apply): AMI AMI/Post PCI/Angioplasty Aspirin given w/in 24hrs of arrival?: Yes ASA at discharge?: Yes Antiplatelet Therapy at Discharge:: Yes Statins at discharge?: No Reason statins not ordered:: Allergy John/ARB at discharge?: Yes Beta Netta at discharge?: Yes Done w/ Acute ID measure.: Yes Documented LVEF (%): 70 Ischemic Stroke Statin Dosing Therapy Reference: STATIN DOSE THERAPY REFERENCE: * Patients > 75 years receive moderate or high dose statin therapy. * Patients 75 years or YOUNGER should receive HIGH intensity statin dose unless contraindicated. You will be required to document reason for non-treatment if statin daily dose does not meet guidelines. HIGH DOSE STATIN THERAPY DAILY Atorvastatin > than or = to 40 mg Rosuvastatin > than or = to 20 mg Amlodipine + Atorvastatin > than or = to 2.5/40 mg Ezetimibe + Simvastatin 10/80 mg Simvastatin 80mg Discharge Plan Admission Admit Date/Time: 05/11/24 14:34 Attending Provider: Lee Aguilar Primary Care Provider: Aracely Blanc Consulting Providers: Jones Bolaños; Elisa Joshua Discharge Orders/Prescriptions Prescriptions: New carvedilol 12.5 mg Tablet 12.5 mg PO BID 90 Days Qty: 180 0RF hydralazine 50 mg Tablet 100 mg PO TID 90 Days Qty: 540 0RF Brilinta 90 mg Tablet 90 mg PO BID 90 Days Qty: 180 0RF Continued aspirin 81 mg tablet,delayed release (DR/EC) 81 mg PO DAILY alprazolam [Xanax] 0.5 mg tablet 0.5 mg PO DAILY PRN (Reason: anxiety) Qty: 15 0RF Prolia 60 mg/mL syringe 60 mg subcut [id number] Qty: 1 1RF digestive enzymes Capsule 1 cap PO DAILY Rx Instructions: administer with food; swallow whole; do not crush/chew/dissolve/break/cut buspirone 5 mg tablet 7.5 mg PO QDAY cholecalciferol (vitamin D3) 25 mcg (1,000 unit) capsule 25 mcg PO DAILY ascorbic acid (vitamin C) 500 mg Tablet 500 mg PO DAILYCM 30 Days Qty: 30 0RF acetaminophen 500 mg Tablet 1,000 mg PO Q8H PRN (Reason: pain) sennosides-docusate sodium [Stool Softener-Stimulant Laxat] 8.6-50 mg Tablet 2 tab PO BID PRN PRN (Reason: Constipation) Qty: 0 0RF Rx Instructions: Available [id number] losartan 50 mg tablet 50 mg PO DAILY sodium chloride 1,000 mg tablet,soluble See Rx Instructions PO .COMPLEX Qty: 150 3RF Rx Instructions: orally; take 2 tablets daily in the morning, 1 tablet in the afternoon and 2 tablets at night ezetimibe 10 mg tablet 10 mg PO DAILY Qty: 30 6RF pantoprazole 40 mg tablet,delayed release (DR/EC) 40 mg PO DAILY Qty: 90 1RF levocetirizine 5 mg tablet 5 mg PO DAILY Qty: 90 1RF potassium chloride 20 mEq tablet extended release See Rx Instructions .ROUTE .COMPLEX Qty: 90 1RF Dose Instruction: TAKE 1 TABLET BY MOUTH ONCE DAILY Patient Comments: pt unsure on dosage Rx Instructions: TAKE 1 TABLET BY MOUTH ONCE DAILY estradiol 0.01 % (0.1 mg/gram) cream 0.25 appful vaginal 2XW Qty: 42.5 2RF Rx Instructions: Use small amount as directed twice a week Discontinued hydralazine 25 mg tablet 25 mg PO TID furosemide 20 mg Tablet 20 mg PO DAILY PRN (Reason: LEG Swelling) Qty: 30 0RF carvedilol 25 mg tablet 25 mg PO BID Qty: 180 3RF Rx Instructions: must administer with a meal/food Referrals / Follow Up: Aracely Blanc MD [Primary Care Provider] - Disposition Disposition (needs filled in before D/C Order can be placed): Home Health Service Charges/Coding Visit Charges Inpatient E&M: 87988 Disch Hosp >30min
[2024-05-14] MEDS: TICAGRELOR 90 MG TABLET PO (08:16)
[2024-05-14] MEDS: Sodium Chloride 1 GM Tablet 2 GM PO (08:16)
[2024-05-14] MEDS: Carvedilol 12.5 MG Tablet PO (08:16)
[2024-05-14] MEDS: busPIRone 5 MG Tablet 7.5 MG PO (08:17)
[2024-05-14] MEDS: Aspirin E.C. 81 MG Tablet PO (08:17)
[2024-05-14] MEDS: Ascorbic Acid 500 MG Tablet PO (08:17)
[2024-05-14] MEDS: Cholecalciferol (VIT D3) 25 MCG TABLET (1,000 UNITS) PO (08:17)
[2024-05-14] MEDS: Pantoprazole Sodium 40 MG Tablet PO (08:18)
[2024-05-14] MEDS: Ezetimibe 10 MG Tablet PO (08:19)
--- NOTE | 2024-05-14 10:00 | EKG12_ITS ---
Test Reason : PCI Blood Pressure : */* mmHG Vent. Rate : 66 BPM Atrial Rate : 66 BPM P-R Int : 194 ms QRS Dur : 92 ms QT Int : 424 ms P-R-T Axes : 45 -25 8 degrees QTcB Int : 444 ms Normal sinus rhythm Left ventricular hypertrophy with repolarization abnormality ( R in aVL , [place] product ) Abnormal ECG When compared with ECG of 13-May-2024 05:33, No significant change was found Confirmed by YESSI SILVER, ANNA ([id number]), food expeditor CECILIA CHAO ([id number]) on 05/15/2024 8:49:17 AM Referred By: Jones Bolaños Confirmed By: ANNA DICKSON MD
[2024-05-14] MEDS: Senna/Docusate Sodium 1 Tablet 2 TABLET PO (10:05)
--- NOTE | 2024-05-14 12:13 | CASEMGMT ---
Patient has order for discharge. Patient discharging on Brilinta, copay is $47, savings card was applied at [facility]. YESSY GANDHI in to discuss needs at discharge. YESSY GANDHI reviewed progress with therapy with patient, stand by assist 12 feet. Patient declines [facility] at this time stating granddaughter will be helping patient at home. Patient states she feels like she is at her baseline. YESSY GANDHI updated patient regarding Brilinta copay and savings card, patient voiced appreciation. Patient denied further needs or help at discharge. Patient had no further questions or concerns.
--- NOTE | 2024-05-14 13:21 | PHA.DC_ITS ---
Pharmacy [facility] has performed discharge medication reconciliation and counseling for this patient. Patient requested meds to beds, this [facility] called retail and requested delivery. 1. TICAGRELOR 90MG PO BID The patient's discharge medication list was reviewed for discrepancies and discrepancies were resolved. The patient was counseled on the following discharge medications and changes in medications for homegoing were reviewed. The Reason for Use, instructions for use, and potential side effects were reviewed for all new medications. The patient's questions regarding all of their medications were answered. The patient was able to verbally demonstrate an understanding of their discharge medications. Patient counseled by pharmacy order entry technicianKevon. Medications at Discharge Home Medications cholecalciferol (vitamin D3) 25 mcg (1,000 unit) capsule 25 mcg PO DAILY vit D3 04/09/23 ascorbic acid (vitamin C) 500 mg tablet 500 mg PO DAILYCM general health 30 days #30 tabs 04/12/23 aspirin 81 mg tablet,delayed release 81 mg PO DAILY heart 04/19/23 acetaminophen 500 mg tablet 1,000 mg PO Q8H PRN pain 10/28/23 sennosides 8.6 mg-docusate sodium 50 mg tablet (Stool Softener-Stimulant Laxative) 2 tab PO BID PRN PRN Constipation #0 tabs 10/30/23 digestive enzymes 1 cap PO DAILY digestion aide 11/06/23 sodium chloride 1,000 mg soluble tablet See Rx Instructions PO .COMPLEX low sodium #150 TABLETS 12/07/23 ezetimibe 10 mg tablet 10 mg PO DAILY high cholesterole #30 TABLETS 12/12/23 levocetirizine 5 mg tablet 5 mg PO DAILY anti histamine #90 tabs 01/01/24 pantoprazole 40 mg tablet,delayed release 40 mg PO DAILY acid reflux #90 tabs 01/01/24 potassium chloride 20 mEq tablet,extended release See Rx Instructions .Route .COMPLEX potassium #90 tabs 01/15/24 buspirone 5 mg tablet 7.5 mg PO QDAY for anxiety 03/28/24 estradiol 0.01% (0.1 mg/gram) vaginal cream 0.25 appful vaginal 2XW hormones #42.5 grams 04/02/24 alprazolam 0.5 mg tablet (Xanax) 0.5 mg PO DAILY PRN anxiety #15 tabs 10/08/24 denosumab 60 mg/mL subcutaneous syringe (Prolia) 60 mg subcut [id number] #1 mL 04/09/24 losartan 50 mg tablet 50 mg PO DAILY heart 05/11/24 carvedilol 12.5 mg tablet 12.5 mg PO BID 90 days #180 tabs 05/14/24 hydralazine 50 mg tablet 100 mg (2 x 50 mg) PO TID 90 days #540 tabs 05/14/24 ticagrelor 90 mg tablet (Brilinta) 90 mg PO BID 90 days #180 tabs 05/14/24
== END 2024-05-14 14:43 | disposition home or self-care (01) | DRG 322 ==
LOC: ED 11:34 → ICU 18:41 → PCU 05-13 07:11 → ICU 05-15 11:12
PROVIDERS: Internal Medicine; Admitting Provider Internal Medicine; Emergency Provider Emergency Medicine; PCP Internal Medicine; Referring Provider Internal Medicine Interventional Cardiology; Visit Provider Internal Medicine
DX: I21.11 ST elevation (STEMI) myocardial infarction involving right coronary artery (principal); E87.1 Hypo-osmolality and hyponatremia; I47.29 Other ventricular tachycardia; Z66 Do not resuscitate; I12.9 Hypertensive chronic kidney disease with stage 1 through stage 4 chronic kidney disease, or unspecified chronic kidney disease; F32.A Depression, unspecified; I73.9 Peripheral vascular disease, unspecified; I34.0 Nonrheumatic mitral (valve) insufficiency; E66.9 Obesity, unspecified; E87.6 Hypokalemia; I16.0 Hypertensive urgency; I25.10 Atherosclerotic heart disease of native coronary artery without angina pectoris; M19.90 Unspecified osteoarthritis, unspecified site; J30.2 Other seasonal allergic rhinitis; E78.5 Hyperlipidemia, unspecified; N18.2 Chronic kidney disease, stage 2 (mild); K21.9 Gastro-esophageal reflux disease without esophagitis; I70.1 Atherosclerosis of renal artery; I21.19 ST elevation (STEMI) myocardial infarction involving other coronary artery of inferior wall; F41.9 Anxiety disorder, unspecified; Z86.16 Personal history of COVID-19; Z79.82 Long term (current) use of aspirin; M81.0 Age-related osteoporosis without current pathological fracture; Z82.3 Family history of stroke; Z95.5 Presence of coronary angioplasty implant and graft; Z68.31 Body mass index [BMI] 31.0-31.9, adult; E66.811 Obesity, class 1
CPT/HCPCS: 36415; 71045; 80048; 80053; 80061; 83036; 83735; 84100; 84484; 85025; 85027; 85347; 85610; 92941; 93005; 93306; 93454; 94668; 97162; 97166; 97802; 99285; C1874; J7030; J7040; Q9967; A4216; C1725; C1769; C1887; C1894; C9606; J1327; J2405

== ENCOUNTER → 2024-06-28 | Outpatient (CLI) | payer MEDICARE, SELFPAY ==
[2021-06-28 09:37] VITALS: BMI 34.1
--- NOTE | 2024-06-28 08:53 | RDU_ITS ---
Reason For Study: Renal artery stenosis s/p stents, SMA stenosis, Celiac occlusion Right Renal Artery Left Renal Artery Right renal artery ostium Left renal artery ostium 270.1/49.7 271.9/67.7 RSV/EDV. PSV/EDV. Right renal artery proximal 294/100 Left renal artery proximal PSV/EDV PSV/EDV. 210/33 . Right renal artery mid 176.5/40.7 Left renal artery mid 272.4/18.7 PSV/EDV. PSV/EDV . Right renal artery distal Left renal artery distal 259/42.1 173.3/37.5 PSV/EDV. PSV/EDV. Right RAR 3.95. Left RAR 3.66. Aorta Proximal abdominal aorta 1.56 x 1.56 cm . Proximal abdominal aorta peak systolic velocity is 146.9 cm/sec . Distal abdominal aorta 1.22 x 1.21 cm . Distal abdominal aorta peak systolic velocity is 74.4 cm/sec . . Celiac artery, Unable to visualize. Hepatic artery, 57.2 cm/sec. Splenic artery, 104.5 cm/sec. SMA origin, 174.9 cm/sec. SMA prox, 186.6 cm/sec. SMA mid, 456.1 cm/sec. SMA distal, 310.6 cm/sec. ANDREA origin, 495.9 cm/sec. ANDREA prox, 367.6 cm/sec. ANDREA mid, 233.5 cm/sec. ANDREA distal, 159.3 cm/sec. VL/Renal Artery Duplex Ultrasound Interpretation Summary Right renal artery patent with > 60% stenosis. Left renal artery patent with > 60% stenosis. Celiac artery with no flow visualized Superior mesenteric artery patent with >70% stenosis Inferior mesenteric artery patent. Ordering Physician: Lucy Drew Referring Physician: Aracely Blanc Performed By: Lachelle Brown RVT
== END | disposition home or self-care (01) ==
LOC: CVS 08:52
PROVIDERS: PCP Internal Medicine; Referring Provider Physician Assistant; Visit Provider Physician Assistant
DX: I70.1 Atherosclerosis of renal artery (principal); K55.1 Chronic vascular disorders of intestine
CPT/HCPCS: 93975

== ENCOUNTER 2024-07-06 11:26 | Emergency (ER) | payer MEDICARE, SELFPAY ==
[2021-06-28 09:37] VITALS: BMI 34.1
[2024-07-06 11:27] VITALS: BP 223/82; PULSE 68; RESP 16; TEMP 36.6; O2SAT 97; BMI 32.1
--- NOTE | 2024-07-06 12:21 | EX.ED.GENINJ ---
HPI History of Present Illness Chief Complaint: Chest Other Informant: patient Narrative Narrative: 79-year-old female states she fell 4 days ago at a [employer] party. She states her shoes got caught up and she stumbled, falling to her friend's hardwood floor injuring her right shoulder and ribs on the right side. She has had pain with breathing and moving her right shoulder, more in the back and around the scapula than anywhere else, also bruised her right hand which is not bothering her, she has been without any dyspnea. Did not hit her head, did not injure her hips or legs or abdomen. She has been able to walk without difficulty since then. She takes ticagrelor but no anticoagulants. [facility] Medical History Bowel obstruction Renal artery stenosis Hypertensive urgency Urinary frequency COVID-19 Difficulty balancing when standing Knee pain Fatigue Heart disease SOB (shortness of breath) Kidney disease Skin cancer Hyponatremia Atherosclerotic heart disease of [place] coronary artery without angina pectoris PAD (peripheral artery disease) Hypertensive urgency Chest pain Non-rheumatic mitral regurgitation CKD (chronic kidney disease) Vaginal wall prolapse Pessary maintenance Anxiety and depression Near syncope CVA (cerebral vascular accident) HLD (hyperlipidemia) Syncope and collapse Syncope due to orthostatic hypotension History of gastroesophageal reflux (GERD) Essential hypertension Home Medications ?Medication ?Instructions ?Recorded ?Last Taken ?Type cholecalciferol (vitamin D3) 25 25 mcg PO DAILY vit D3 04/09/23 05/10/24 History mcg (1,000 unit) capsule ascorbic acid (vitamin C) 500 mg 500 mg PO DAILYCM general health 04/12/23 05/10/24 Rx tablet 30 days #30 tabs aspirin 81 mg tablet,delayed 81 mg PO DAILY heart 04/19/23 05/10/24 History release acetaminophen 500 mg tablet 1,000 mg PO Q8H PRN pain 10/28/23 10/28/23 02:00 History digestive enzymes 1 cap PO DAILY digestion aide 11/06/23 Unknown History ezetimibe 10 mg tablet 10 mg PO DAILY high cholesterole 12/12/23 05/10/24 Rx #30 TABLETS estradiol 0.01% (0.1 mg/gram) 0.25 appful vaginal 2XW hormones 04/02/24 Unknown Rx vaginal cream #42.5 grams alprazolam 0.5 mg tablet (Xanax) 0.5 mg PO DAILY PRN anxiety #15 04/09/24 Unknown Rx tabs ticagrelor 90 mg tablet (Brilinta) 90 mg PO BID 90 days #180 tabs 05/24/24 Unknown Rx losartan 50 mg tablet 50 mg PO DAILY heart #30 tabs 06/24/24 Unknown Rx amoxicillin 500 mg capsule 2,000 mg PO ONCE 06/28/24 Unknown History carvedilol 25 mg tablet 25 mg PO BID 06/28/24 Unknown History hydralazine 50 mg tablet 50 mg PO TID 06/28/24 Unknown History sodium chloride 1,000 mg soluble 2,000 mg PO QAM low sodium 06/28/24 Unknown History tablet buspirone 5 mg tablet 7.5 mg (1.5 x 5 mg) PO DAILY PRN 07/02/24 Unknown Rx for anxiety #135 TABLETS potassium chloride 20 mEq 20 meq PO DAILY #90 TABLETS 07/04/24 Unknown Rx tablet,extended release levocetirizine 5 mg tablet 5 mg PO DAILY #90 TABLETS 07/05/24 Unknown Rx pantoprazole 40 mg tablet,delayed 40 mg PO DAILY #90 TABLETS 07/05/24 Unknown Rx release oxycodone-acetaminophen 5 mg-325 1 tab PO Q6H PRN PRN Pain 4 days 07/06/24 Unknown Rx mg tablet #15 TABLETS Allergy/AdvReac Type Severity Reaction Status Date / Time amlodipine AdvReac Intermediate swelling Verified 06/28/24 10:15 [id number] Reductase AdvReac leg muscle Verified 06/28/24 10:15 Inhibitor (Tbjjkdo-Bfo-Kyo weakness Reductase Inhibitor) Family History Mother CAD (coronary artery disease) CVA (cerebral vascular accident) Brother CVA (cerebral vascular accident) Heart disease Kidney disease Diabetes Sister CAD (coronary artery disease) Sister Diabetes Brother Diabetes Brother CAD (coronary artery disease) Other Cancer Hypertension Surgical History Presence of stent in coronary artery (05/11/24) History of right knee joint replacement S/P skin biopsy (~08/2022) H/O oral surgery History of renal stent Presence of coronary angioplasty implant and graft (~03/18/20) History of bilateral cataract extraction Social History household members: other details: granddaughter 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 Smoking Status: Never smoker Electronic Cigarette Use: not used alcohol intake: never substance use type: does not use caffeine: No what type of physical activity do you participate in: none seatbelt use: always do you feel safe at home: Yes additional social history: - Retired 1 adopted daughter-, drug use ROS ROS ED Constitutional Constitutional ED: Denies chills or fever(s) Eyes Eyes: Denies change in vision or diplopia ENT ENT ED: Denies rhinorrhea or sore throat Cardiovascular Cardiovascular: Reports as per HPI and chest pain; Denies palpitations or radiating jaw, neck or arm pain Respiratory/Chest Respiratory/Chest: Denies cough or dyspnea Gastrointestinal Gastrointestinal: Denies abdominal pain, diarrhea, nausea or vomiting Genitourinary Genitourinary ED: Denies dysuria or hematuria Musculoskeletal Musculoskeletal: Reports as per HPI, back pain and extremity pain; Denies neck pain Integumentary Denies abscess or rash Neurologic Neurologic: Denies headache(s), paresthesias or weakness Hematologic/Lymphatic Hematologic/Lymphatic: Reports easy bleeding and easy bruising EXAM Physical Exam Const Vital Signs: 07/06/24 11:27 07/06/24 13:31 Temperature 97.8 F Temperature Source Oral Pulse Rate 68 88 Respiratory Rate 16 16 Blood Pressure 223/82 H 193/64 H Blood Pressure Mean 129 107 Pulse Ox 97 97 Oxygen Delivery Method Room Air Room Air Positive well nourished and well developed General Appearance ED: well developed and NAD HEENT Reports moist mucous membranes normocephalic and atraumatic Eyes PERRL and EOMs intact bilaterally Neck full ROM and supple Chest Wall inspection of chest normal Chest Narrative: Tender in the right posterior chest wall and the inferior half of the scapula area as well as the ribs below this but not the lower most ribs 8-12, there is no crepitance, palpable step-off, or subcutaneous emphysema. She is also tender around the lateral infra-axillary rib cage and into the inframammary area but not anteriorly or at the sternum. Resp normal respiratory effort and clear to auscultation bilaterally Resp Narrative: Presents equal bilaterally. Cardio regular rate and regular rhythm GI non-tender and non-distended Auscultation: normoactive bowel sounds Palpation: soft Back/Spine no CVA tenderness General Back: other FROM Extremity normal to inspection Extremity Narrative: Full range of motion of the right shoulder and other joints of the right upper extremity, the only bony tenderness she has is mildly in the proximal humerus but she can internally and externally rotate while abducted without any pain or limitation, bony tenderness at the inferior aspect of the scapula, and the acromioclavicular joint without any swelling or deformities. There is contusion on her right hand between the first and second metacarpals, there is no bony tenderness she has full range of motion of the wrist and fingers without any difficulty or limitation. Full range of motion of the elbow without any bony tenderness. Same with the wrist. The other 3 extremities range fully without any limitation or pain. General Extremety ED: Yes tenderness; Negative for edema or pulses abnormal General Extremity: Negative for edema or pulses abnormal Neuro oriented x3, CN's II-XII intact bilaterally and no sensory deficits noted Sensorium / Orientation: awake and alert Motor Exam: strength 5/5 throughout Psych mental status grossly normal and thought process normal Skin no rashes or lesions noted and no wounds MDM MDM MDM Narrative Medical decision making narrative: Three-view x-ray series of the right shoulder on my interpretation is negative for acute fracture or dislocation acromioclavicular joint looks good as well. 4 view x-ray series of the right rib cage including PA chest shows at least 1 rib fracture maybe 2, radiology confirms that there are 2. Patient was given an oxycodone she is doing well with it. Offered admission but she is doing well enough and has help at home with her granddaughter whom she lives with, and is okay going home. She does not have a pneumothorax on the x-rays, she does not have dyspnea right now, we discussed reasons to return and we will give her an incentive spirometer as well. Radiography Diagnostic Testing: Clinical Impression(s) from Imaging Studies Ribs w/Chest X-Ray 07/06/24 12:50 IMPRESSION: RIBS: Right third and fourth rib fractures. No pneumothorax. CHEST: Right third and fourth rib fractures. No pneumothorax. Electronically Signed: Nikhil Carvalho MD at 13:29 EST , Shoulder X-Ray 07/06/24 12:50 IMPRESSION: Right rib fractures. Electronically Signed: Nikhil Carvalho MD at 13:20 EST , Discharge Plan Triage Chief Complaint: Chest Other ED Provider: Nikhil Velez Dx/Rx/DC Orders Clinical Impression: Closed fracture of two ribs of right side, Fall from slip, trip, or stumble Instructions: ED Rib Fracture Prescriptions: New oxycodone-acetaminophen 5-325 mg tablet 1 tab PO Q6H PRN PRN (Reason: Pain) 4 Days Qty: 15 0RF No Action aspirin 81 mg tablet,delayed release (DR/EC) 81 mg PO DAILY alprazolam [Xanax] 0.5 mg tablet 0.5 mg PO DAILY PRN (Reason: anxiety) Qty: 15 0RF digestive enzymes Capsule 1 cap PO DAILY Rx Instructions: administer with food; swallow whole; do not crush/chew/dissolve/break/cut Brilinta 90 mg tablet 90 mg PO BID 90 Days Qty: 180 0RF amoxicillin 500 mg capsule 2,000 mg PO ONCE Rx Instructions: Take 4 caps 1 hour prior to dental visits sodium chloride 1,000 mg tablet,soluble 2,000 mg PO QAM hydralazine 50 mg tablet 50 mg PO TID cholecalciferol (vitamin D3) 25 mcg (1,000 unit) capsule 25 mcg PO DAILY ascorbic acid (vitamin C) 500 mg Tablet 500 mg PO DAILYCM 30 Days Qty: 30 0RF acetaminophen 500 mg Tablet 1,000 mg PO Q8H PRN (Reason: pain) ezetimibe 10 mg tablet 10 mg PO DAILY Qty: 30 6RF estradiol 0.01 % (0.1 mg/gram) cream 0.25 appful vaginal 2XW Qty: 42.5 2RF Rx Instructions: Use small amount as directed twice a week losartan 50 mg tablet 50 mg PO DAILY Qty: 30 0RF carvedilol 25 mg tablet 25 mg PO BID Rx Instructions: must administer with a meal/food buspirone 5 mg tablet 7.5 mg PO DAILY PRN (Reason: for anxiety) Qty: 135 1RF potassium chloride 20 mEq tablet extended release 20 meq PO DAILY Qty: 90 1RF levocetirizine 5 mg tablet 5 mg PO DAILY Qty: 90 1RF pantoprazole 40 mg tablet,delayed release (DR/EC) 40 mg PO DAILY Qty: 90 1RF Primary Care Provider: Aracely Blanc Referrals: Aracely Blanc MD [Primary Care Provider] - 1 Week if not improving Activity Restrictions/Additional Instructions: Incentive spirometry at least 3 times daily for the first week, to help prevent pneumonia Print Language: Kinyarwanda Disposition Disposition: Home, Self Care
[2024-07-06] MEDS: oxyCODONE 5 MG Tablet PO (12:31)
--- NOTE | 2024-07-06 12:50 | RAD_ITS ---
STUDY: X-RAY - UNILATERAL RIBS ( RIGHT ) WITH CHEST REASON FOR EXAM: Female, 79 years old. Injury TECHNIQUE - RIBS: 3 view(s) of the ribs. TECHNIQUE - CHEST: Single frontal view of the chest. COMPARISON: Chest x-ray May 11, 2024 FINDINGS - RIBS: There is demineralization of the ribs. There are nondisplaced right third and fourth rib fractures. FINDINGS - CHEST: The lungs are clear and expanded. There is no demonstrated pleural abnormality. Normal size heart. There are calcified mediastinal lymph nodes. Normal visualized pulmonary arteries. There is atherosclerotic calcification of the aortic arch with tortuosity. There is demineralization of the osseous structures. There are nondisplaced right third and fourth rib fractures There is no demonstrated abnormality of the visualized soft tissue structures of the upper abdomen. RAD/Ribs Uni Min 3V w/PA Chest IMPRESSION: RIBS: Right third and fourth rib fractures. No pneumothorax. CHEST: Right third and fourth rib fractures. No pneumothorax. Electronically Signed: Nikhil Carvalho MD at 13:29 EST ,
--- NOTE | 2024-07-06 12:50 | RAD_ITS ---
STUDY: X-RAY - RIGHT SHOULDER REASON FOR EXAM: Female, 79 years old. Injury TECHNIQUE: 4 view(s) of the shoulder. COMPARISON: None. FINDINGS: Normal glenohumeral articulation. Normal acromioclavicular joint. Normal acromion. There is demineralization of the humerus and visualized osseous structures. The soft tissue structures are unremarkable. There are multiple right rib fractures. Normal visualized pulmonary apex. RAD/Shoulder min 2 Views IMPRESSION: Right rib fractures. Electronically Signed: Nikhil Carvalho MD at 13:20 EST ,
[2024-07-06 13:31] VITALS: BP 193/64; PULSE 88; RESP 16; O2SAT 97
[2024-07-06 14:12] VITALS: BP 185/70; PULSE 70; RESP 16; TEMP 36.6; O2SAT 98
== END 2024-07-06 14:13 | disposition home or self-care (01) ==
PROVIDERS: Emergency Provider Emergency Medicine; PCP Internal Medicine; Visit Provider Emergency Medicine
DX: S22.41XA Multiple fractures of ribs, right side, initial encounter for closed fracture (principal); I12.9 Hypertensive chronic kidney disease with stage 1 through stage 4 chronic kidney disease, or unspecified chronic kidney disease; I25.10 Atherosclerotic heart disease of native coronary artery without angina pectoris; N18.9 Chronic kidney disease, unspecified; W19.XXXA Unspecified fall, initial encounter; Z86.73 Personal history of transient ischemic attack (TIA), and cerebral infarction without residual deficits; Z86.16 Personal history of COVID-19; Z95.5 Presence of coronary angioplasty implant and graft
CPT/HCPCS: 71101; 73030; 99282

== ENCOUNTER → 2024-08-20 | Outpatient (CLI) | payer MEDICARE, SELFPAY ==
[2021-06-28 09:37] VITALS: BMI 34.1
[2024-08-20 16:35] LABS: Absolute Lymphocyte Count 2.01 X10^3/uL (0.83-4.51); Basophil# 0.04 X10^3/uL; Basophil% 0.7 % (0-1); Eosinophil# 0.11 X10^3/uL; Eosinophils% 1.9 % (0-5); Hematocrit 34.9 % (37-47); Hemoglobin 11.5 g/dL (12.0-15.0); Lymphocyte # 2.01 X10^3/ul (0.83-4.51); Lymphocyte % 34.4 % (19-41); Mean Corpuscular Hgb 30.3 pg (27.0-32.0); Mean Corpuscular Volume 92.1 fL (81-99); Mean Platelet Vol. 9.9 fl (6.2-12.0); Monocyte# 0.72 X10^3/uL; Monocyte% 12.3 % (0-10); NRBC Flagged by Analyzer 0 % (0-5); Neutrophil # 2.96 X10^3/uL (2.7-7.7); Neutrophil % 50.5 % (47-70); Platelet Count 334 K/mm3 (150-450); RBC Distribution Width CV 13.7 % (11.6-14.6); RBC Distribution Width SD 46.7 fl (35.1-43.9); Red Blood Count 3.79 M/mm3 (4.2-5.4); White Blood Count 5.9 K/mm3 (4.4-11.0)
[2024-08-20 16:59] LABS: ALB/GLOB Ratio 0.8 RATIO (0.9-2.4); AST(SGOT) 20 U/L (15-37); Alanine Aminotransfer ALT/SGPT 23 U/L (13-56); Albumin, Serum 3.5 g/dL (3.2-5.0); Alkaline Phosphatase 103 U/L (45-117); Anion Gap 11 (5-15); BUN 12 mg/dL (7-18); Calcium,Total 8.8 mg/dL (8.5-10.1); Chloride 96 mmol/L (98-107); Creatinine, Serum 0.71 mg/dL (0.55-1.02); EST Glomerular Filtration Rate 85 mL/min (>60); Est Glom Filt Rate - Afr Amer 102 mL/min (>60); Globulin 4.2 g/dL (2.2-4.2); Glucose 97 mg/dL (74-106); Potassium 4.2 mmol/L (3.5-5.1); Protein, Total 7.7 g/dL (6.4-8.2); Sodium Level 129 mmol/L (136-145)
== END | disposition home or self-care (01) ==
LOC: BIMLAB 15:03
PROVIDERS: PCP Internal Medicine; Referring Provider Physician Assistant; Visit Provider Physician Assistant
DX: I10 Essential (primary) hypertension (principal); N28.9 Disorder of kidney and ureter, unspecified
CPT/HCPCS: 36415; 80053; 85025

== ENCOUNTER → 2024-09-09 | Outpatient (CLI) | payer MEDICARE, SELFPAY ==
[2021-06-28 09:37] VITALS: BMI 34.1
--- NOTE | 2024-09-09 10:05 | CDU_ITS ---
Reason For Study Reason For Study: Bialteral carotid stenosis Rt. Velocities/BP Lt. Velocities/BP Prox CCA 84.4/14.5 cm/sec. Prox CCA 97.1/12.4 cm/sec. Mid CCA 72.1/7.8 cm/sec. Mid CCA 70.7/12.4 cm/sec. Dist CCA 67.4/9.7 cm/sec. Dist CCA 55.3/12.4 cm/sec. Prox ICA 54.2/13.5 cm/sec. Prox ICA 72.8/15.1 cm/sec. Mid ICA 69.6/16.8 cm/sec. Mid ICA 55.5/15.7 cm/sec. Dist ICA 48.7/13.2 cm/sec. Dist ICA 92.5/26.2 cm/sec. Rt. ICA/CCA = 0.97. Lt. ICA/CCA = 1.31. Prox ECA 105.8/4.7 cm/sec. Prox ECA 79/5.1 cm/sec. Rt. Vert. 63/13.5 cm/sec. Lt. Vert. 42.8/8.8 cm/sec. Right Extracranial There is intimal thickening but no significant atherosclerotic plaque noted in the right common carotid artery. There is heterogeneous, irregular atherosclerotic plaque noted in the right internal carotid artery. There is heterogeneous, irregular atherosclerotic plaque noted in the right external carotid artery. Antegrade flow is noted in the right vertebral artery. Left Extracranial There is intimal thickening but no significant atherosclerotic plaque noted in the left common carotid artery. There is heterogeneous, irregular atherosclerotic plaque noted in the left internal carotid artery. There is heterogeneous, irregular atherosclerotic plaque noted in the left external carotid artery. Antegrade flow is noted in the left vertebral artery. Procedure Carotid Duplex [id number]. This is a Carotid Duplex examination using B-mode, color flow and specral Doppler. Exam performed in department. VL/Carotid Duplex Ultrasound Interpretation Summary Mild (<50%) stenosis right extracranial internal carotid. Mild (<50%) stenosis left extracranial internal carotid. Patent and antegrade vertebrals bilaterally. Ordering Physician: Lucy Drew Referring Physician: Aracely Blanc Performed By: Lachelle Brown RVT
== END | disposition home or self-care (01) ==
LOC: CVS 10:04
PROVIDERS: PCP Internal Medicine; Referring Provider Physician Assistant; Visit Provider Physician Assistant
DX: I65.23 Occlusion and stenosis of bilateral carotid arteries (principal)
CPT/HCPCS: 93880

== ENCOUNTER → 2024-10-03 | Outpatient (CLI) | payer MEDICARE, SELFPAY ==
[2021-06-28 09:37] VITALS: BMI 34.1
[2024-10-03 17:46] LABS: Anion Gap 10 (5-15); BUN 10 mg/dL (4-19); BUN/Creat Ratio 15.7 RATIO (10-20); Calcium,Total 8.9 mg/dL (7.6-11.0); Carbon Dioxide 22.2 mmol/L (21.0-32.0); Chloride 98 mmol/L (98-108); Creatinine, Serum 0.65 mg/dL (0.70-1.20); EST Glomerular Filtration Rate 89 (>60); Glucose 116 mg/dL (70-99); Potassium 4.3 mmol/L (3.3-5.1); Sodium Level 130 mmol/L (133-145)
[2024-10-03 20:18] LABS: Protein, Urine (Random) < 6.0 mg/dL (0.0-12.0); Protein:Creat Ratio UNABLE TO CALCULATE mg/g CRE (0-200)
== END | disposition home or self-care (01) ==
LOC: BIMLAB 15:07
PROVIDERS: PCP Internal Medicine; Referring Provider Internal Medicine Nephrology; Visit Provider Internal Medicine Nephrology
DX: N18.2 Chronic kidney disease, stage 2 (mild) (principal)
CPT/HCPCS: 36415; 80048; 82570; 84156

== ENCOUNTER → 2025-02-28 | Outpatient (CLI) | payer MEDICARE, SELFPAY ==
[2021-06-28 09:37] VITALS: BMI 34.1
[2025-02-28 17:49] LABS: Hematocrit 31.8 % (37-47); Hemoglobin 10.9 g/dL (12.0-15.0); Immature Granulocytes Count 0.010 X10^3/uL (0.0-0.0); Mean Corp Hgb Conc 34.3 g/dL (32-36); Mean Corpuscular Volume 92.2 fL (81-99); Mean Platelet Vol. 10.0 fl (6.2-12.0); NRBC Flagged by Analyzer 0 % (0-5); Platelet Count 301 K/mm3 (150-450); RBC Distribution Width CV 13.4 % (11.6-14.6); RBC Distribution Width SD 45.4 fl (35.1-43.9); Red Blood Count 3.45 M/mm3 (4.2-5.4); White Blood Count 4.8 K/mm3 (4.4-11.0)
[2025-02-28 18:23] LABS: AST(SGOT) 22 U/L (<=31); Alanine Aminotransfer ALT/SGPT 11 U/L (<=34); Albumin, Serum 3.9 g/dL (3.4-4.8); Alkaline Phosphatase 90 U/L (35-104); Anion Gap 9 (5-15); BUN 14 mg/dL (4-19); BUN/Creat Ratio 20.1 RATIO (10-20); Calcium,Total 8.9 mg/dL (7.6-11.0); Carbon Dioxide 22.9 mmol/L (21.0-32.0); Chloride 96 mmol/L (98-108); Globulin 3.1 g/dL (2.2-4.2); Glucose 69 mg/dL (70-99); Potassium 4.4 mmol/L (3.3-5.1)
== END | disposition home or self-care (01) ==
LOC: MTLAB 16:21
PROVIDERS: PCP Internal Medicine; Referring Provider Nurse Practitioner Family; Visit Provider Nurse Practitioner Family
DX: I10 Essential (primary) hypertension (principal); E22.2 Syndrome of inappropriate secretion of antidiuretic hormone
CPT/HCPCS: 36415; 80053; 85025

== ENCOUNTER 2025-03-30 13:08 | Inpatient (IN) | payer MEDICARE, SELFPAY ==
[2021-06-28 09:37] VITALS: BMI 34.1
[2025-03-30] VITALS (12 sets, daily range): BP systolic 170–232; BP diastolic 65–90; PULSE 65–78; RESP 13–22; TEMP 36.6–37; O2SAT 93–97; BMI 31.6
--- NOTE | 2025-03-30 13:41 | EKG12_ITS ---
Test Reason : HTN Blood Pressure : */* mmHG Vent. Rate : 66 BPM Atrial Rate : 66 BPM P-R Int : 184 ms QRS Dur : 102 ms QT Int : 446 ms P-R-T Axes : 65 -27 72 degrees QTcB Int : 467 ms Normal sinus rhythm Moderate voltage criteria for LVH, may be normal variant ( R in aVL , [place] product ) Nonspecific ST and T wave abnormality Abnormal ECG Confirmed by YESSI SILVER, ANNA ([id number]), newspaper or periodical editor JESSICA ANGUIANO ([id number]) on 04/01/2025 8:00:41 AM Referred By: Confirmed By: ANNA DICKSON MD
--- NOTE | 2025-03-30 13:41 | CT_ITS ---
PROCEDURE: BRAIN/HEAD WITHOUT CONTRAST 03/30/2025 REASON FOR EXAM: HEADACHE TECHNIQUE: Procedure Code: CTBR Modality: CT Procedure: BRAIN/HEAD WITHOUT CONTRAST Coronal and Sagittal reconstruction series were provided. One or more dose reduction techniques were used (e.g., Automated exposure control, adjustment of the mA and/or kV according to patient size, use of iterative reconstruction technique. RADIATION DOSE SUMMARY: CTDlvol: 44.99 mGy DLP: 779.24 mGycm COMPARISON: 08/16/2022 and 09/05/2019 FINDINGS: BRAIN: No acute intraparenchymal hemorrhage. No mass lesion. No CT evidence for acute territorial infarct. No midline shift or extra-axial collection. Patchy periventricular white matter low attenuation, likely microvascular ischemic changes. VENTRICLES: No hydrocephalus. ORBITS: Intraocular lens implants bilaterally. The orbits are otherwise unremarkable. SINUSES AND MASTOIDS: Chronic left sphenoid sinus opacification with periosteal thickening, unchanged. The remaining paranasal sinuses and mastoid air cells are clear. SOFT TISSUES: No acute abnormality seen. BONES: No acute osseous abnormality seen. OTHER: Calcified carotid siphons and vertebral arteries. CT/Brain/Head without Contrast IMPRESSION: No acute intracranial abnormality. Reading Location: [id number]
[2025-03-30 13:49] LABS: Hematocrit 33.5 % (37-47); Hemoglobin 12.1 g/dL (12.0-15.0); Immature Granulocytes Count 0.030 X10^3/uL (0.0-0.0); Mean Corp Hgb Conc 36.1 g/dL (32-36); Mean Corpuscular Volume 87.5 fL (81-99); Mean Platelet Vol. 9.8 fl (6.2-12.0); NRBC Flagged by Analyzer 0 % (0-5); Platelet Count 279 K/mm3 (150-450); RBC Distribution Width CV 12.5 % (11.6-14.6); RBC Distribution Width SD 39.8 fl (35.1-43.9); Red Blood Count 3.83 M/mm3 (4.2-5.4); White Blood Count 5.4 K/mm3 (4.4-11.0)
--- NOTE | 2025-03-30 13:52 | EX.ED.DYSGE1 ---
HPI History of Present Illness Chief Complaint: Headache Narrative Narrative: Chief complaint and HPI: 79-year-old female with past medical history of HTN, CVA, HLD, SIADH presents for evaluation of headache with nausea and vomiting. Patient states yesterday she developed a headache that was gradual in onset. She denies any falls or trauma. Associated symptom is nausea and vomiting. On EMS arrival, patient hypertensive with SBP in the 200s. She states she has been taking her antihypertensives. She denies any vision changes, URI symptoms, neck pain, shortness of breath, chest pain, abdominal pain, dysuria, numbness/tingling, focal weakness, dysarthria. Review of systems: See HPI Medications: As listed on the chart Allergies: As listed on the chart PFSH: Per chart Vital signs: As listed on the chart. Reviewed. Physical exam: Gen: A&O x3 Head: Normocephalic, atraumatic Eyes: No sclera icterus, conjunctiva clear, PERRL, EOMI, no visual field deficits ENT: Tympanic membranes clear bilaterally, dry mucous membranes, No facial asymmetry, no facial tenderness Neck: Trachea midline, No JVD, full range of motion, no meningismus CV: RRR, no murmurs, no peripheral edema Resp: Lungs CTA BL, no w/r/c GI: Abd soft, non-distended, non-tender, no r/r/g Musc: Full ROM, no deformity, strength +5/5 in all extremities, no pronator drift, no ataxia Skin: Warm, dry Neuro: Alert, oriented, grossly intact, sensation intact, no focal deficits, no dysarthria or aphasia Psych: Cooperative, appropriate mood and affect [facility] Medical History Nocturia Vaginal atrophy Female genital prolapse, unspecified Bowel obstruction Renal artery stenosis Hypertensive urgency Urinary frequency COVID-19 Difficulty balancing when standing Knee pain Fatigue Heart disease SOB (shortness of breath) Kidney disease Skin cancer Hyponatremia Atherosclerotic heart disease of [place] coronary artery without angina pectoris PAD (peripheral artery disease) Hypertensive urgency Chest pain Non-rheumatic mitral regurgitation CKD (chronic kidney disease) Vaginal wall prolapse Pessary maintenance Anxiety and depression Near syncope CVA (cerebral vascular accident) HLD (hyperlipidemia) Syncope and collapse Syncope due to orthostatic hypotension History of gastroesophageal reflux (GERD) Essential hypertension Home Medications ?Medication ?Instructions ?Recorded ?Last Taken ?Type cholecalciferol (vitamin D3) 25 25 mcg PO DAILY vit D3 04/09/23 03/29/25 History mcg (1,000 unit) capsule aspirin 81 mg tablet,delayed 81 mg PO DAILY heart 04/19/23 03/29/25 History release acetaminophen 500 mg tablet 1,000 mg PO Q8H PRN pain 10/28/23 03/30/25 History levocetirizine 5 mg tablet 5 mg PO DAILY #90 TABLETS 07/05/24 03/29/25 Rx ezetimibe 10 mg tablet 10 mg PO DAILY high cholesterole 07/08/24 03/29/25 Rx #90 TABLETS hydralazine 50 mg tablet 50 mg PO TID #270 tabs 10/17/24 03/30/25 Rx carvedilol 25 mg tablet 25 mg PO BID #180 tabs 12/23/24 03/30/25 Rx losartan 50 mg tablet 50 mg PO BID heart #180 tabs 01/02/25 03/30/25 Rx pantoprazole 40 mg tablet,delayed 40 mg PO DAILY #90 TABLETS 01/07/25 03/29/25 Rx release potassium chloride 20 mEq 20 meq PO DAILY #90 TABLETS 01/14/25 03/29/25 Rx tablet,extended release ticagrelor 90 mg tablet (Brilinta) 90 mg PO BID #180 tabs 02/06/25 03/29/25 Rx glucosamine 750 if-husnbuehyhx-spd 1 tab PO BID 02/26/25 03/29/25 History no1 644 mg-C 30 mg-rogelio 1 mg tablet (Osteo Bi-Flex Triple Strength) alprazolam 0.5 mg tablet (Xanax) 0.5 mg PO DAILY PRN anxiety #15 02/28/25 Unknown Rx tabs gabapentin 100 mg capsule 100 mg PO QHS #30 caps 02/28/25 Unknown Rx sodium chloride 1,000 mg soluble See Rx Instructions PO QAM low 03/13/25 03/29/25 Rx tablet sodium #150 TABLETS buspirone 5 mg tablet 7.5 mg (1.5 x 5 mg) PO DAILY PRN 03/17/25 03/29/25 Rx for anxiety #135 TABLETS Allergy/AdvReac Type Severity Reaction Status Date / Time amlodipine AdvReac Intermediate swelling Verified 03/30/25 13:09 Ygbcxgo-WCK-FmR Reductase AdvReac leg muscle Verified 03/30/25 13:09 Inhibitor (Kzmedep-Eao-Ytz weakness Reductase Inhibitor) Family History Mother CAD (coronary artery disease) CVA (cerebral vascular accident) Brother CVA (cerebral vascular accident) Heart disease Kidney disease Diabetes Sister CAD (coronary artery disease) Sister Diabetes Brother Diabetes Brother CAD (coronary artery disease) Other Cancer Hypertension Surgical History Presence of stent in coronary artery (05/11/24) History of right knee joint replacement S/P skin biopsy (~08/2022) H/O oral surgery History of renal stent Presence of coronary angioplasty implant and graft (~03/18/20) History of bilateral cataract extraction Social History household members: other details: granddaughter 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 Smoking Status: Never smoker Electronic Cigarette Use: not used alcohol intake: never substance use type: does not use caffeine: No what type of physical activity do you participate in: none seatbelt use: always do you feel safe at home: Yes additional social history: - Retired 1 adopted daughter-, drug use EXAM Physical Exam Const Vital Signs: 03/30/25 13:09 03/30/25 13:16 03/30/25 14:09 Temperature 98.6 F Temperature Source Oral Pulse Rate 65 Respiratory Rate 22 H Blood Pressure 228/90 H 232/82 H 191/75 H Blood Pressure Mean 136 132 113 Pulse Ox 97 Oxygen Delivery Method Room Air 03/30/25 16:11 03/30/25 16:20 Temperature 98.2 F Temperature Source Pulse Rate 71 76 Respiratory Rate 13 16 Blood Pressure 173/66 H 177/65 H Blood Pressure Mean 101 102 Pulse Ox 93 95 Oxygen Delivery Method Room Air MDM MDM MDM Narrative Medical decision making narrative: 79-year-old female with past medical history of HTN, CVA, HLD, SIADH presents for evaluation of headache with nausea and vomiting. Patient states yesterday she developed a headache that was gradual in onset. Associated symptom is nausea and vomiting. On EMS arrival, patient hypertensive with SBP in the 200s. She states she has been taking her antihypertensives. On presentation, patient is hypertensive with SBP in the 230s. Differential diagnosis includes but is not limited to hypertension urgency, intracranial abnormality or bleed, hypertensive emergency, electrolyte abnormality, UTI, dehydration, viral illness. NS bolus, Zofran, hydralazine, morphine ordered for symptoms. Laboratory workup ordered including CT head. CBC without leukocytosis or anemia. CMP shows acute on chronic hyponatremia. Sodium 122. Baseline appears to be around 129, 130. No BRONSON. No transaminitis. Troponin unremarkable. BNP elevated at 2710. Patient not fluid overloaded on exam. CT of the brain shows no acute abnormality. On reevaluation, patient still having a headache. Tylenol ordered. Her blood pressure has improved to 177/65. At this point in time, I suspect patient's headache may be secondary to her acute on chronic hyponatremia. Patient will warrant admission. Patient confirmed understand the plan. Dr. Holt accepted admission. Dr. Holt examined the patient and story changed. She told Dr. Holt that the headache was sudden and that she had dysarthria and right lower extremity weakness. Dr. Holt asking me to add on CTA head and neck. This was ordered. Patient will still be admitted to the PCU. EKG: Interpreted by me/EM physician: EKG shows normal sinus rhythm with nonspecific ST changes. Heart rate 66. Diagnostic: Interpreted by me/EM physician: Chest x-ray without pneumonia, effusion, cardiomegaly, pneumothorax. Radiology in agreement. Impression: 1. Headache 2. Nausea and vomiting 3. Acute on chronic hyponatremia 4. Hypertension urgency Lab Data Labs: Laboratory Results - last 24 hr 03/30/25 13:19 WBC 5.4 RBC 3.83 L Hgb 12.1 Hct 33.5 L MCV 87.5 MCH 31.6 MCHC 36.1 H RDW Std Deviation 39.8 RDW Coeff of Lucía 12.5 Plt Count 279 MPV 9.8 Immature Gran % (Auto) 0.600 Neut % (Auto) 60.7 Lymph % (Auto) 30.2 [place] % (Auto) 8.1 Eos % (Auto) 0.2 Baso % (Auto) 0.2 Absolute Neuts (auto) 3.3 Absolute Lymphs (auto) 1.64 Nucleated RBC % 0 Sodium 122 L Potassium 3.6 Chloride 89 L Carbon Dioxide 19.2 L Anion Gap 14 BUN 11 Creatinine 0.62 L Estim Creat Clear Calc 49.35 L Est GFR (MDRD) Non-Af 90 BUN/Creatinine Ratio 18.2 Glucose 107 H Calcium 9.0 Total Bilirubin 0.60 AST 23 ALT 13 Alkaline Phosphatase 87 Troponin T High Sens 13 NT pro BNP II 2710 H Total Protein 7.1 Albumin 3.9 Globulin 3.2 Albumin/Globulin Ratio 1.2 Radiography Diagnostic Testing: Clinical Impression(s) from Imaging Studies Brain CT 03/30/25 13:41 IMPRESSION: No acute intracranial abnormality. Reading Location: [facility] Chest X-Ray 03/30/25 14:10 IMPRESSION: NO SIGNIFICANT CHANGE SINCE THE PRIOR EXAM. Reading Location: [facility] Discharge Plan Triage Chief Complaint: Headache ED Provider: Matti Miller Dx/Rx/DC Orders Prescriptions: No Action aspirin 81 mg tablet,delayed release (DR/EC) 81 mg PO DAILY hydralazine 50 mg tablet 50 mg PO TID Qty: 270 1RF Osteo Bi-Flex Triple Strength 750 mg-644 mg- 30 mg-1 mg tablet 1 tab PO BID gabapentin 100 mg capsule 100 mg PO QHS Qty: 30 0RF alprazolam [Xanax] 0.5 mg tablet 0.5 mg PO DAILY PRN (Reason: anxiety) Qty: 15 0RF cholecalciferol (vitamin D3) 25 mcg (1,000 unit) capsule 25 mcg PO DAILY acetaminophen 500 mg Tablet 1,000 mg PO Q8H PRN (Reason: pain) levocetirizine 5 mg tablet 5 mg PO DAILY Qty: 90 1RF ezetimibe 10 mg tablet 10 mg PO DAILY Qty: 90 3RF carvedilol 25 mg tablet 25 mg PO BID Qty: 180 3RF Rx Instructions: must administer with a meal/food losartan 50 mg tablet 50 mg PO BID Qty: 180 1RF pantoprazole 40 mg tablet,delayed release (DR/EC) 40 mg PO DAILY Qty: 90 1RF potassium chloride 20 mEq tablet extended release 20 meq PO DAILY Qty: 90 1RF Brilinta 90 mg tablet 90 mg PO BID Qty: 180 3RF sodium chloride 1,000 mg tablet,soluble See Rx Instructions PO QAM Qty: 150 0RF Rx Instructions: orally every morning; buspirone 5 mg tablet 7.5 mg PO DAILY PRN (Reason: for anxiety) Qty: 135 1RF Primary Care Provider: Aracely Blanc Referrals: Aracely Blanc MD [Primary Care Provider, Internal Medicine] Print Language: Portuguese
[2025-03-30] MEDS: 0.9% Normal Saline (1000mL) 1,000 ML 1000 ML IV (13:56)
[2025-03-30 14:10] LABS: Troponin T High Sensitivity 13 ng/L (<=14)
--- NOTE | 2025-03-30 14:10 | RAD_ITS ---
PROCEDURE: CHEST PA AND LATERAL 03/30/2025 REASON FOR EXAM: HTN TECHNIQUE: Procedure Code: RADCXR Modality: DX Procedure: CHEST PA AND LATERAL FINDINGS: Hardware: Cardiac leads overlie the chest. Heart: Heart is upper limits of normal in size. Mediastinum: The thoracic aorta is tortuous and calcified. Calcified right hilar lymph node is again noted pulmonary vasculature is unremarkable. Lungs: The lungs are clear. Bones: Degenerative changes of the thoracic spine and shoulders are again noted. Diffuse osteopenia of the bony thorax is noted. RAD/Chest PA and Lateral IMPRESSION: NO SIGNIFICANT CHANGE SINCE THE PRIOR EXAM. Reading Location: [id number]
[2025-03-30 14:12] LABS: AST(SGOT) 23 U/L (<=31); Alanine Aminotransfer ALT/SGPT 13 U/L (<=34); Albumin, Serum 3.9 g/dL (3.4-4.8); Alkaline Phosphatase 87 U/L (35-104); Anion Gap 14 (5-15); BUN 11 mg/dL (4-19); BUN/Creat Ratio 18.2 RATIO (10-20); Calcium,Total 9.0 mg/dL (7.6-11.0); Carbon Dioxide 19.2 mmol/L (21.0-32.0); Chloride 89 mmol/L (98-108); Estimated Creatinine Clearance 49.35 ml/min (50-250); Globulin 3.2 g/dL (2.2-4.2); Glucose 107 mg/dL (70-99); Potassium 3.6 mmol/L (3.3-5.1); Pro- Brain NATRIURETIC PEPTIDE 2710 pg/mL (<=1800)
--- NOTE | 2025-03-30 16:27 | CT_ITS ---
PROCEDURE: CTA HEAD AND NECK W/ CONTRAST 03/30/2025 REASON FOR EXAM: Headache TECHNIQUE: Procedure Code: CTCTA.HDNCK Modality: CT Procedure: CTA HEAD AND NECK W/ CONTRAST Multidetector CT angiography of the head and neck with intravenous contrast was performed with multiplaner and maximum intensity projection (MIP) reconstructions. 3D reconstructions were obtained. CONTRAST: Isovue 370 VOLUME: 100 mL One or more dose reduction techniques were used (e.g., Automated exposure control, adjustment of the mA and/or kV according to patient size, use of iterative reconstruction technique). RADIATION DOSE SUMMARY: DLP: 653.44 mGycm COMPARISON: None available FINDINGS: Motion artifact mildly limits evaluation. CTA NECK: Standard three-vessel configuration of the aortic arch. The origins of the vessels arising from the aortic arch are patent without high-grade stenosis. Atherosclerotic calcification along the aortic arch. Right carotid artery: The right common carotid artery is patent without high- grade stenosis. Atherosclerotic calcification at the right carotid bulb. The right cervical internal carotid artery is patent. Left carotid artery: The left common carotid artery is patent without high-grade stenosis. Atherosclerotic calcification at the left carotid bulb. The left cervical internal carotid artery is patent. Cervical vertebral arteries: The cervical vertebral arteries are patent without high-grade stenosis. Assessment for carotid stenosis is performed utilizing NASCET criteria. NASCET carotid stenosis criteria: 0% - none, 1-49% - mild, 50-69% - moderate, 70-89% - severe, 90-99% - critical. % ICA stenosis = (normal distal cervical ICA diameter - narrowest cervical ICA diameter / normal distal cervical ICA diameter) x 100. CTA Head: Atherosclerotic calcification of the cavernous carotid arteries with mild luminal narrowing. The petrous, cavernous, and intracranial internal carotid arteries are otherwise patent without high-grade stenosis. The proximal anterior cerebral arteries are patent without high-grade stenosis. Mild short segment narrowing of the proximal left M1 MCA. The proximal middle cerebral arteries are otherwise patent without high-grade stenosis. The intradural vertebral arteries are patent without high-grade stenosis. The basilar artery is patent without high-grade stenosis. The proximal posterior cerebral arteries are patent without high-grade stenosis. There is a 1.5 mm inferiorly directed outpouching of the anterior communicating artery. No high flow arteriovenous malformation is identified. Ancillary findings: Cervical spondylosis. Opacification of left sphenoid sinus. Maxillary edentulism. CT/CTA Head AND Neck W/ Contrast IMPRESSION: 1. Motion artifact mildly limits evaluation. 2. No large vessel occlusion or arteriovenous malformation. 3. 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 Reading Location: [id number]
[2025-03-30 16:42] LABS: Troponin T High Sens 2 HR 12 ng/L (<=14)
--- NOTE | 2025-03-30 17:23 | HP.PCM.HOS_ITS ---
HPI - General HPI Narrative SANJIV PEOPLES, is a 79 F who presents [facility] Medical History Anxiety and depression Atherosclerotic heart disease of [place] coronary artery without angina pectoris Bowel obstruction Chest pain CKD (chronic kidney disease) COVID-19 CVA (cerebral vascular accident) Difficulty balancing when standing Essential hypertension Fatigue Female genital prolapse, unspecified Heart disease History of gastroesophageal reflux (GERD) HLD (hyperlipidemia) Hypertensive urgency Hypertensive urgency Hyponatremia Kidney disease Knee pain Near syncope Nocturia Non-rheumatic mitral regurgitation PAD (peripheral artery disease) Pessary maintenance Renal artery stenosis Skin cancer SOB (shortness of breath) Syncope and collapse Syncope due to orthostatic hypotension Urinary frequency Vaginal atrophy Vaginal wall prolapse Home Medications ?Medication ?Instructions ?Recorded ?Last Taken ?Type cholecalciferol (vitamin D3) 25 25 mcg PO DAILY vit D3 04/09/23 03/29/25 History mcg (1,000 unit) capsule aspirin 81 mg tablet,delayed 81 mg PO DAILY heart 04/0203/29/25 History release acetaminophen 500 mg tablet 1,000 mg PO Q8H PRN pain 0 10/28/23 03/30/25 History levocetirizine 5 mg tablet 5 mg PO DAILY #90 TABLETS 0 07/05/24 03/29/25 Rx ezetimibe 10 mg tablet 10 mg PO DAILY high choleste role 07/08/24 03/29/25 Rx #90 TABLETS hydralazine 50 mg tablet 50 mg PO TID #270 tabs 10/1703/30/25 Rx carvedilol 25 mg tablet 25 mg PO BID #180 tabs 12/2303/30/25 Rx losartan 50 mg tablet 50 mg PO BID heart #180 tabs 01/02/25 03/30/25 Rx pantoprazole 40 mg tablet,delayed 40 mg PO DAILY #90 T ABLETS 01/07/25 03/29/25 Rx release potassium chloride 20 mEq 20 meq PO DAILY #90 TABLETS 01/14/25 03/29/25 Rx tablet,extended release ticagrelor 90 mg tablet (Brilinta) 90 mg PO BID #180 t abs 02/06/25 03/29/25 Rx glucosamine 750 hb-kztaqgmwkes-dav 1 tab PO BID 03/29/25 History no1 644 mg-C 30 mg-rogelio 1 mg tablet (Osteo Bi-Flex Triple Strength) alprazolam 0.5 mg tablet (Xanax) 0.5 mg PO DAILY PRN a nxiety #15 02/28/25 Unknown Rx tabs gabapentin 100 mg capsule 100 mg PO QHS #30 caps 02/28 Unknown Rx sodium chloride 1,000 mg soluble See Rx Instructions P O QAM low 03/13/25 03/29/25 Rx tablet sodium #150 TABLETS buspirone 5 mg tablet 7.5 mg (1.5 x 5 mg) PO DAILY PRN 03/17/25 03/29/25 Rx for anxiety #135 TABLETS Allergy/AdvReac Type Severity Reaction Status Date / Time amlodipine AdvReac Intermediate swelling Verified 03/30/25 13:09 Aefdmhq-ZAJ-ZrD Reductase AdvReac leg muscle Verified 03/30/25 13:09 Inhibitor (Adueqkj-Mhw-Vdk weakness Reductase Inhibitor) Family History Mother CAD (coronary artery disease) CVA (cerebral vascular accident) Brother CVA (cerebral vascular accident) Heart disease Kidney disease Diabetes Sister CAD (coronary artery disease) Sister Diabetes Brother Diabetes Brother CAD (coronary artery disease) Other Cancer Hypertension Surgical History H/O oral surgery History of bilateral cataract extraction History of renal stent History of right knee joint replacement Presence of coronary angioplasty implant and graft (~03/18/20) Presence of stent in coronary artery (05/11/24) S/P skin biopsy (~08/2022) Social History household members: other details: granddaughter 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 Smoking Status: Never smoker Electronic Cigarette Use: not used alcohol intake: never substance use type: does not use caffeine: No what type of physical activity do you participate in: none seatbelt use: always do you feel safe at home: Yes additional social history: - Retired 1 adopted daughter-, drug use Vital Signs Vital Signs Vital Signs: 03/30/25 13:09 03/30/25 13:16 03/30/25 14:09 Temperature 98.6 F Temperature Source Oral Pulse Rate 65 Respiratory Rate 22 H Blood Pressure 228/90 H 232/82 H 191/75 H Blood Pressure Mean 136 132 113 Pulse Ox 97 Oxygen Delivery Method Room Air 03/30/25 16:11 03/30/25 16:15 03/30/25 16:20 Temperature 98.2 F Temperature Source Pulse Rate 71 76 76 Respiratory Rate 13 16 16 Blood Pressure 173/66 H 177/65 H 177/65 H Blood Pressure Mean 101 97 102 Pulse Ox 93 95 Oxygen Delivery Method Room Air 03/30/25 16:30 03/30/25 16:30 03/30/25 16:45 Temperature Temperature Source Pulse Rate 72 Respiratory Rate 17 Blood Pressure 175/67 H 175/67 H 186/75 H Blood Pressure Mean 99 99 107 Pulse Ox Oxygen Delivery Method 03/30/25 16:45 03/30/25 17:00 Temperature Temperature Source Pulse Rate 76 78 Respiratory Rate 19 H Blood Pressure 186/75 H 186/67 H Blood Pressure Mean 107 102 Pulse Ox 97 Oxygen Delivery Method Room Air Weight Weight: 71.1 kg Body Mass Index (BMI) 31.6 Results Lab / Micro Data 03/30/25 13:19 03/30/25 13:19 Labs: Laboratory Results - last 24 hr 03/30/25 13:19: WBC 5.4, RBC 3.83 L, Hgb 12.1, Hct 33.5 L, MCV 87.5, MCH 31.6, M CHC 36.1 H, RDW Std Deviation 39.8, RDW Coeff of Lucía 12.5, Plt Count 279, MPV 9.8, Immature Gran % (Auto) 0.600, Neut % (Auto) 60.7, Lymph % (Auto) 30.2, [place] % (Auto) 8.1, Eos % (Auto) 0.2, Baso % (Auto) 0.2, Absolute Neuts (auto) 3.3, Absolute Lymphs (auto) 1.64, Nucleated RBC % 0, Sodium 122 L, Potassium 3.6, C hloride 89 L, Carbon Dioxide 19.2 L, Anion Gap 14, BUN 11, Creatinine 0.62 L, E stim Creat Clear Calc 49.35 L, Est GFR (MDRD) Non-Af 90, BUN/Creatinine Ratio 18.2, Glucose 107 H, Calcium 9.0, Total Bilirubin 0.60, AST 23, ALT 13, Alkaline Phosphatase 87, Troponin T High Sens 13, NT pro BNP II 2710 H, Total Protein 7.1, Albumin 3.9, Globulin 3.2, Albumin/Globulin Ratio 1.2 03/30/25 16:19: Troponin T Hi Sens 2 Hr 12 Imaging Radiology Impression Brain CT 03/30/25 13:41 IMPRESSION: No acute intracranial abnormality. Reading Location: [id number] Chest X-Ray 03/30/25 14:10 IMPRESSION: NO SIGNIFICANT CHANGE SINCE THE PRIOR EXAM. Reading Location: [id number]
--- NOTE | 2025-03-30 17:23 | PCM.HP.STD ---
HPI - General General Date of Admission: 03/30/25 Date of Service: 03/30/25 Chief Complaint: Headache, nausea HPI Narrative SANJIV PEOPLES, is a 79-year-old female history of hypertension, GERD, anxiety, coronary artery disease with history of stent, history of stage II diastolic dysfunction, CVA, SIADH presented [facility] ED 03/30/2025 with nausea and vomiting. Patient provided very different history to ED provider the hospitalist however per history given to ED physician yesterday she developed a headache that was gradual in onset and has been having nausea and vomiting now. On EMS arrival SBP in the 200s. Patient does report taking her hypertensives. In the ED temp 98.6, heart rate 65, blood pressure 228/90, respiratory 22 pulse ox 97% on room air. White blood cell count 5.4 and hemoglobin 12, CMP 122, she is chronically low but somewhat lower than baseline, BUN of 11 creatinine 0.62, liver function within normal limits, proBNP 2700, troponin 13. Head CT no acute intracranial abnormality, chest x-ray with no significant change from previous. Hospitalist was called to admit patient for concerns for symptomatic hyponatremia given her sodium is 122 which is lower than her baseline. On evaluating patient she reported to me she got dizzy yesterday suddenly at 10 AM with nausea and headache, throughout the interview she also endorsed decreased strength in right lower extremity causing difficulty with ambulation and that yesterday she also had difficulty getting her words out. Endorses feeling generally weak all over however to me said that her right leg is weaker than her left leg. Endorses headache is in the top of her head and she has some pain across her neck more so on the right side than the left. Denied any changes in upper extremities, she does not think she had been confused yesterday. Denies any fever, denies changes in vision, denies stuffy nose or sore throat, no chest pain, cough, shortness of breath. Denies changes in bowel or bladder to me, denies overt abdominal pain but reports she has not eaten well in the past 2 days so her stomach feels empty, she does endorse the vomiting but notes she has been vomiting up phlegm. Only recent medication change is gabapentin which she took on and did fine in the morning however took it again Monday but notes symptoms did not start until around 10 AM on Monday. Denies any leg swelling, no new rashes bleeding bruising, does report compliance with her salt tabs. [facility] Medical History (Updated 03/30/25 @ 17:[address] Kaleigh Holt MD) Anxiety and depression Atherosclerotic heart disease of [place] coronary artery without angina pectoris Bowel obstruction Chest pain CKD (chronic kidney disease) COVID-19 CVA (cerebral vascular accident) Difficulty balancing when standing Essential hypertension Fatigue Female genital prolapse, unspecified Heart disease History of gastroesophageal reflux (GERD) HLD (hyperlipidemia) Hypertensive urgency Hypertensive urgency Hyponatremia Kidney disease Knee pain Near syncope Nocturia Non-rheumatic mitral regurgitation PAD (peripheral artery disease) Pessary maintenance Renal artery stenosis Skin cancer SOB (shortness of breath) Syncope and collapse Syncope due to orthostatic hypotension Urinary frequency Vaginal atrophy Vaginal wall prolapse Home Medications ?Medication ?Instructions ?Recorded ?Last Taken ?Type cholecalciferol (vitamin D3) 25 25 mcg PO DAILY vit D3 04/09/23 03/29/25 History mcg (1,000 unit) capsule aspirin 81 mg tablet,delayed 81 mg PO DAILY heart 04/19/23 03/29/25 History release acetaminophen 500 mg tablet 1,000 mg PO Q8H PRN pain 10/28/23 03/30/25 History levocetirizine 5 mg tablet 5 mg PO DAILY #90 TABLETS 07/05/24 03/29/25 Rx ezetimibe 10 mg tablet 10 mg PO DAILY high cholesterole 07/08/24 03/29/25 Rx #90 TABLETS hydralazine 50 mg tablet 50 mg PO TID #270 tabs 10/17/24 03/30/25 Rx carvedilol 25 mg tablet 25 mg PO BID #180 tabs 12/23/24 03/30/25 Rx losartan 50 mg tablet 50 mg PO BID heart #180 tabs 01/02/25 03/30/25 Rx pantoprazole 40 mg tablet,delayed 40 mg PO DAILY #90 TABLETS 01/07/25 03/29/25 Rx release potassium chloride 20 mEq 20 meq PO DAILY #90 TABLETS 01/14/25 03/29/25 Rx tablet,extended release ticagrelor 90 mg tablet (Brilinta) 90 mg PO BID #180 tabs 02/06/25 03/29/25 Rx glucosamine 750 [id number] 1 tab PO BID 02/26/25 03/29/25 History no1 644 mg-C 30 mg-rogelio 1 mg tablet (Osteo Bi-Flex Triple Strength) alprazolam 0.5 mg tablet (Xanax) 0.5 mg PO DAILY PRN anxiety #15 02/28/25 Unknown Rx tabs gabapentin 100 mg capsule 100 mg PO QHS #30 caps 02/28/25 Unknown Rx sodium chloride 1,000 mg soluble See Rx Instructions PO QAM low 03/13/25 03/29/25 Rx tablet sodium #150 TABLETS buspirone 5 mg tablet 7.5 mg (1.5 x 5 mg) PO DAILY PRN 03/17/25 03/29/25 Rx for anxiety #135 TABLETS Allergy/AdvReac Type Severity Reaction Status Date / Time amlodipine AdvReac Intermediate swelling Verified 03/30/25 13:09 Zogxffo-IRP-OfF Reductase AdvReac leg muscle Verified 03/30/25 13:09 Inhibitor (Ylgnfeb-Zbv-Fra weakness Reductase Inhibitor) Family History Mother CAD (coronary artery disease) CVA (cerebral vascular accident) Brother CVA (cerebral vascular accident) Heart disease Kidney disease Diabetes Sister CAD (coronary artery disease) Sister Diabetes Brother Diabetes Brother CAD (coronary artery disease) Other Cancer Hypertension Surgical History H/O oral surgery History of bilateral cataract extraction History of renal stent History of right knee joint replacement Presence of coronary angioplasty implant and graft (~03/18/20) Presence of stent in coronary artery (05/11/24) S/P skin biopsy (~08/2022) Social History household members: other details: granddaughter 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 Smoking Status: Never smoker Electronic Cigarette Use: not used alcohol intake: never substance use type: does not use caffeine: No what type of physical activity do you participate in: none seatbelt use: always do you feel safe at home: Yes additional social history: - Retired 1 adopted daughter-, drug use ROS ROS Narrative General: Denies fever/chills HENT: Headache that is aching on the top of her head, some achiness in her neck right greater than left, denies stuffy nose, denies sore throat EYES: Denies changes in vision Resp: Denies cough, denies shortness of breath Cardiac: Denies chest pain GI: Denies abdominal pain, only notes an empty feeling in her stomach, denies changes in bowel, has had some nausea and vomiting phlegm since yesterday : Denies changes in urination Extremity: Denies swelling MSK: Generally weak but also right lower extremity greater than left Neuro: Denies any numbness/tingling Heme: Denies any bleeding or bruising Skin: Denies rashes Psychiatric: No complaints voiced Vital Signs Vital Signs Vital Signs: 03/30/25 13:09 03/30/25 13:16 03/30/25 14:09 Temperature 98.6 F Temperature Source Oral Pulse Rate 65 Respiratory Rate 22 H Blood Pressure 228/90 H 232/82 H 191/75 H Blood Pressure Mean 136 132 113 Pulse Ox 97 Oxygen Delivery Method Room Air 03/30/25 16:11 03/30/25 16:15 03/30/25 16:20 Temperature 98.2 F Temperature Source Pulse Rate 71 76 76 Respiratory Rate 13 16 16 Blood Pressure 173/66 H 177/65 H 177/65 H Blood Pressure Mean 101 97 102 Pulse Ox 93 95 Oxygen Delivery Method Room Air 03/30/25 16:30 03/30/25 16:30 03/30/25 16:45 Temperature Temperature Source Pulse Rate 72 Respiratory Rate 17 Blood Pressure 175/67 H 175/67 H 186/75 H Blood Pressure Mean 99 99 107 Pulse Ox Oxygen Delivery Method 03/30/25 16:45 03/30/25 17:00 Temperature Temperature Source Pulse Rate 76 78 Respiratory Rate 19 H Blood Pressure 186/75 H 186/67 H Blood Pressure Mean 107 102 Pulse Ox 97 Oxygen Delivery Method Room Air Weight Weight: 71.1 kg Body Mass Index (BMI) 31.6 Physical Exam Narrative General: Patient keeps her eyes closed unless prompted to open, does not necessarily appear to be acutely distressed HEENT: Atraumatic, normocephalic Eyes: Anicteric, normal conjunctiva, extraocular movements intact, pupils equal, both small but equal Neck: Supple Respiratory: Clear to auscultation bilaterally, normal respiratory effort Cardiovascular: Regular rate and rhythm GI: Soft, nontender, nondistended Extremities: No edema Musculoskeletal: Strength 5 out of 5 in right upper extremity, 5 - out of 5 left upper extremity, patient with poor effort when trying to test strength in lower extremities, was able to hold left leg up without drift, right leg did have drift, again somewhat unclear if this was effort dependent Neuro: cranial nerves II through XII intact on my exam, [id number] very slow but was able to do so Skin: No rashes appreciated Psych: Superficially cooperative Results Lab / Micro Data 03/30/25 13:19 03/30/25 13:19 Labs: Laboratory Results - last 24 hr 03/30/25 13:19: WBC 5.4, RBC 3.83 L, Hgb 12.1, Hct 33.5 L, MCV 87.5, MCH 31.6, MCHC 36.1 H, RDW Std Deviation 39.8, RDW Coeff of Lucía 12.5, Plt Count 279, MPV 9.8, Immature Gran % (Auto) 0.600, Neut % (Auto) 60.7, Lymph % (Auto) 30.2, [place] % (Auto) 8.1, Eos % (Auto) 0.2, Baso % (Auto) 0.2, Absolute Neuts (auto) 3.3, Absolute Lymphs (auto) 1.64, Nucleated RBC % 0, Sodium 122 L, Potassium 3.6, Chloride 89 L, Carbon Dioxide 19.2 L, Anion Gap 14, BUN 11, Creatinine 0.62 L, Estim Creat Clear Calc 49.35 L, Est GFR (MDRD) Non-Af 90, BUN/Creatinine Ratio 18.2, Glucose 107 H, Calcium 9.0, Total Bilirubin 0.60, AST 23, ALT 13, Alkaline Phosphatase 87, Troponin T High Sens 13, NT pro BNP II 2710 H, Total Protein 7.1, Albumin 3.9, Globulin 3.2, Albumin/Globulin Ratio 1.2 03/30/25 16:19: Troponin T Hi Sens 2 Hr 12 Imaging Radiology Impression Brain CT 03/30/25 13:41 IMPRESSION: No acute intracranial abnormality. Reading Location: [facility] Chest X-Ray 03/30/25 14:10 IMPRESSION: NO SIGNIFICANT CHANGE SINCE THE PRIOR EXAM. Reading Location: [id number] Assessment & Plan Assessment/Plan (1) Right leg weakness: (2) Hyponatremia: PLAN: Plan # Right lower extremity weakness, dizziness, dysarthria -Still reports the intermittent dizziness and right lower extremity weakness, history given other providers was slow headache with some nausea and vomiting that developed today with no focal neurocomplaints -Admit to tele -CT head w/ no acute process -CTA head and neck ordered -MRI ordered -NIH q4hr -asa, also still on Brilinta, not on statin due to history of myalgias, on ezetimibe -Echo -PT/OT/Speech eval -Teleneuro consult ordered # Hyponatremia -Patient has chronic hyponatremia, unclear how acute patient's drop in sodium was given 1 month ago was 128 and today is 122, unclear if this was acute or subacute -Sodium 122, has wide vacillation but typically around 127-130 -Unclear etiology, patient reports compliance with her salt tabs -Continue salt tabs -Given diagnosis of SIADH will fluid restrict -Only medication change recently was patient started gabapentin, this can theoretically cause or worsen hyponatremia, unclear if this is a cause or contributor on top of her chronic hyponatremia but she reports that she took it for a couple of days and then Monday began having all of the symptoms -Gabapentin can also cause GI symptoms and hypertension -Will hold gabapentin -Will check urine studies, UA, UDS, serum osmolality -Pro BNP elevated but patient does not appear fluid overloaded, query if this is due to her significantly elevated blood pressure on presentation -Check TSH -Trend BMP # Hypertensive urgency versus emergency -Patient with headache and significantly elevated systolic blood pressures in the 200s however blood pressure improvement did not seem to have any effect on patient's symptoms or headache -Does have an elevated proBNP but no previous values for comparison and patient does have stage II diastolic dysfunction on previous echo -No chest pain and troponins have been 13 and 12 respectively -Given patient's symptoms have been present for greater than 24 hours we will continue her home blood pressure medications #GERD -Continue PPI #Hx of CAD -w/ previous stenting -Continue home medications # History of CVA -Continue antiplatelets #anxiety -Continue home medications #Hx diastolic dysfunction -Patient with history of diastolic dysfunction, stage II and with EF of 70% but wall motion abnormalities noted as well -Daily weights, I's and O's -Appears euvolemic #DVT ppx: SCDs Kaleigh Holt MD Charges/Coding Visit Charges Inpatient E&M: 84516 Init Hosp L2
--- NOTE | 2025-03-30 18:08 | ECHOD_ITS ---
Reason For Study Reason For Study: TIA/CVA Procedure This was a 2D Doppler, Color Flow transthoracic echocardiogram. Myocardial strain analysis was performed in this exam to aid in the assessment of cardiac function. Exam performed portable in patient room. Left Ventricle Normal LV size. The left ventricular ejection fraction is 65 %. No regional wall motion abnormalities noted. Right Ventricle Normal RV size. Normal systolic function. Atria Normal left atrium. Normal right atrium. Mitral Valve There is moderate mitral annular calcification. Tricuspid Valve Normal tricuspid valve. Mild (1+) tricuspid valve insufficiency. Pulmonary artery systolic pressure is 30 mmHg. Aortic Valve Trisinus/trileaflet aortic valve. Mild focal aortic valve calcification. Pulmonic Valve Normal pulmonic valve. Great Vessels Moderately calcified aortic root. The pulmonary artery is normal size. Inferior vena cava collapse with respiration. Pericardium/Pleural No pericardial effusion. MMode/2D Measurements & Calculations LVIDd: 3.7 cm IVSd: 1.3 cm LVOT diam: 1.8 cm LVIDs: 2.2 cm LVPWd: 1.1 cm LVOT area: 2.5 cm2 RVDd: 3.2 cm FS: 39.2 % asc Aorta Diam: 3.2 cm LAV(MOD-bp): 47.9 ml LVAd ap4: 17.7 cm2 LAV(MOD-bp) Indexed: 29.0 ml/m2 LVLd ap4: 6.3 cm LAV(MOD-sp2): 59.7 ml EDV(MOD-sp4): 39.7 ml LAV(MOD-sp4): 34.4 ml EDV(sp4-el): 42.4 ml LVAs ap4: 9.4 cm2 LVLs ap4: 5.2 cm ESV(MOD-sp4): 14.3 ml ESV(sp4-el): 14.2 ml EF(MOD-sp4): 64.0 % EF(sp4-el): 66.4 % LVAd ap2: 15.7 cm2 SV(MOD-sp4): 25.4 ml SV(MOD-sp2): 17.8 ml LVLd ap2: 6.6 cm SI(MOD-sp4): 15.4 ml/m2 SI(MOD-sp2): 10.8 ml/m2 EDV(MOD-sp2): 30.5 ml EDV(sp2-el): 31.8 ml LVAs ap2: 9.2 cm2 LVLs ap2: 5.7 cm ESV(MOD-sp2): 12.7 ml ESV(sp2-el): 12.6 ml EF(MOD-sp2): 58.4 % SV(sp4-el): 28.2 ml Ao sinus diam: 3.[address] Junction: 2.2 cm LA dimension(2D): 3.9 cm LA A4 area: 14.5 cm2 RA A4 area: 12.2 cm2 TAPSE: 1.8 cm Time Measurements MV dec time: 0.12 sec Doppler Measurements & Calculations MV E max jimy: 109.3 cm/sec Lat Peak E' Jimy: 7.2 cm/sec Med Peak E' Jimy: 6.3 cm/sec MV A max jimy: 62.0 cm/sec E/E' lat: 15.3 E/E' med: 17.4 MV E/A: 1.8 MV dec slope: 947.4 cm/sec2 Ao V2 max: 174.8 cm/sec LV V1 max: 132.9 cm/sec Ao max P.2 mmHg LV V1 max P.1 mmHg Ao V2 mean: 118.0 cm/sec LV V1 mean P.0 mmHg Ao mean P.4 mmHg LV V1 mean: 94.0 cm/sec Ao V2 VTI: 42.8 cm LV V1 VTI: 33.0 cm AV (velocity ratio): 0.77 CARLOS(I,D): 2.0 cm2 CARLOS(V,D): 1.9 cm2 SV(LVOT): 83.6 ml PA V2 max: 90.4 cm/sec TR max jimy: 254.2 cm/sec TR max P.4 mmHg ECHO/Echo Complete Interpretation Summary Normal LV size. The left ventricular ejection fraction is 65 %. Moderately calcified aortic root. Pulmonary artery systolic pressure is 30 mmHg. Ordering Physician: Kaleigh Holt Performed By: Miranda Blanco RDCS
[2025-03-30 19:07] LABS: Anion Gap 12 (5-15); BUN 10 mg/dL (4-19); BUN/Creat Ratio 18.6 RATIO (10-20); Calcium,Total 8.5 mg/dL (7.6-11.0); Carbon Dioxide 20.2 mmol/L (21.0-32.0); Chloride 89 mmol/L (98-108); Estimated Creatinine Clearance 49.28 ml/min (50-250); Glucose 111 mg/dL (70-99); Potassium 3.6 mmol/L (3.3-5.1)
[2025-03-30 19:26] LABS: Mucous, Urine 0 SEEN /hpf (<or=2+)
[2025-03-30 19:37] LABS: Color, Urine Straw (Yellow); Glucose, Dipstick Normal (Normal); Ketone-Dipstick 15 mg/dl (Negative); Leukocyte Esterase-Dipstick 100 /ul (Negative); Nitrite-Dipstick Negative (Negative); Occult Blood-Urine 10 /ul (Negative); Protein-Dipstick 30 mg/dl (Negative); Specific Gravity, Urine 1.015 (1.002-1.030); Urine Bilirubin Dipstick Negative (Negative)
[2025-03-30 19:43] LABS: Osmolality, Serum 267 mOsm/KG (280-301)
[2025-03-30 19:53] LABS: Red Blood Cells-Urine 0-5 SEEN /hpf (0-5); Squamous Epithelial Cells - UA 0-5 SEEN /hpf (5-10)
[2025-03-30 20:02] LABS: Osmolality, Urine 571 mOsm/KG
[2025-03-30 20:12] LABS: Creatinine, Urine (random) 49.50 mg/dL (28.00-217.00)
[2025-03-30 20:30] LABS: Urea Nitrogen, Urine 340 mg/dL (NO RANGE EST.)
[2025-03-30 21:25] LABS: Barbiturate Urine NEGATIVE (< 200 ng/mL); Benzodiazepine Urine NEGATIVE (< 200 ng/mL); PCP Urine NEGATIVE (< 25 ng/mL); THC Urine NEGATIVE (< 50 ng/mL)
[2025-03-30] MEDS: TICAGRELOR 90 MG TABLET PO (22:05)
[2025-03-30] MEDS: 0.9% Saline Lock 10 ML Syringe IV (22:08)
[2025-03-30 23:08] LABS: Anion Gap 12 (5-15); BUN 10 mg/dL (4-19); BUN/Creat Ratio 16.4 RATIO (10-20); Calcium,Total 8.7 mg/dL (7.6-11.0); Carbon Dioxide 20.4 mmol/L (21.0-32.0); Chloride 91 mmol/L (98-108); Estimated Creatinine Clearance 49.28 ml/min (50-250); Glucose 120 mg/dL (70-99); Potassium 3.3 mmol/L (3.3-5.1)
[2025-03-31] VITALS (10 sets, daily range): BP systolic 145–185; BP diastolic 54–71; PULSE 67–73; RESP 16–18; TEMP 36.3–37.1; O2SAT 94–100; BMI 31.6; BMI 31.3
[2025-03-31 03:21] LABS: Anion Gap 12 (5-15); BUN 12 mg/dL (4-19); BUN/Creat Ratio 18.4 RATIO (10-20); Calcium,Total 8.3 mg/dL (7.6-11.0); Carbon Dioxide 20.0 mmol/L (21.0-32.0); Chloride 93 mmol/L (98-108); Estimated Creatinine Clearance 49.11 ml/min (50-250); Glucose 91 mg/dL (70-99); Potassium 3.1 mmol/L (3.3-5.1)
[2025-03-31] MEDS: 0.9% Normal Saline (250mL Bag) 250 ML 15 ML IV (03:50)
[2025-03-31 06:49] LABS: Hematocrit 30.9 % (37-47); Hemoglobin 11.0 g/dL (12.0-15.0); Immature Granulocytes Count 0.030 X10^3/uL (0.0-0.0); Mean Corp Hgb Conc 35.6 g/dL (32-36); Mean Corpuscular Volume 87.8 fL (81-99); Mean Platelet Vol. 9.3 fl (6.2-12.0); NRBC Flagged by Analyzer 0 % (0-5); Platelet Count 268 K/mm3 (150-450); RBC Distribution Width CV 12.9 % (11.6-14.6); RBC Distribution Width SD 41.0 fl (35.1-43.9); Red Blood Count 3.52 M/mm3 (4.2-5.4); White Blood Count 8.1 K/mm3 (4.4-11.0)
[2025-03-31 07:33] LABS: Anion Gap 12 (5-15); Calcium,Total 8.4 mg/dL (7.6-11.0); Carbon Dioxide 18.7 mmol/L (21.0-32.0); Chloride 93 mmol/L (98-108); Potassium 3.2 mmol/L (3.3-5.1)
--- NOTE | 2025-03-31 07:41 | NEURO.CONS ---
Assessment and Plan: Neuro Assessment/Plan SANJIV PEOPLES is a 79 F with a past medical history of hypertension, GERD, anxiety, coronary artery disease with history of stent, history of stage II diastolic dysfunction, CVA, SIADH, being evaluated by Teleneurology for dysequilibrium and nausea/vomitting. REported R leg weakness and numbness were related more to her falling toward the R. History is unclear but no true focal symptoms. Exam currently nonfocal. Imaging benign - no evidence of stroke. History very unclear but perhaps related to recent changes in her gabapentin. Could also be related to her hyponatremia but unclear if this is reactive to the nausea/vomitting or the cause. Ddx includes severe BPPV, medication effect, worsening SIADH. Plan: - can discontinue gabapentin - consider another trial as outpatient to assess if continues to have symptoms Recommend followup outpatient with sleep or neurology for her RLS and additional evaluation for treatments. I personally attended this patient and spent a total time of 60minutes evaluating this patient including clinical assessment, review of chart, medical history imaging, and determining appropriate treatment and workup. HPI Consult Data Date of Consult: 03/31/25 HPI Narrative HPI Narrative: SANJIV PEOPLES, is a 79-year-old female history of hypertension, GERD, anxiety, coronary artery disease with history of stent, history of stage II diastolic dysfunction, CVA, SIADH presented [facility] ED 03/30/2025 with nausea and vomiting. Patient provided very different history to ED provider the hospitalist however per history given to ED physician yesterday she developed a headache that was gradual in onset and has been having nausea and vomiting now. On EMS arrival SBP in the 200s. Patient does report taking her hypertensives. In the ED temp 98.6, heart rate 65, blood pressure 228/90, respiratory 22 pulse ox 97% on room air. White blood cell count 5.4 and hemoglobin 12, CMP 122, she is chronically low but somewhat lower than baseline, BUN of 11 creatinine 0.62, liver function within normal limits, proBNP 2700, troponin 13. Head CT no acute intracranial abnormality, chest x-ray with no significant change from previous. Hospitalist was called to admit patient for concerns for symptomatic hyponatremia given her sodium is 122 which is lower than her baseline. On evaluating patient she reported to me she got dizzy yesterday suddenly at 10 AM with nausea and headache, throughout the interview she also endorsed decreased strength in right lower extremity causing difficulty with ambulation and that yesterday she also had difficulty getting her words out. Endorses feeling generally weak all over however to me said that her right leg is weaker than her left leg. Endorses headache is in the top of her head and she has some pain across her neck more so on the right side than the left. Denied any changes in upper extremities, she does not think she had been confused yesterday. Denies any fever, denies changes in vision, denies stuffy nose or sore throat, no chest pain, cough, shortness of breath. Denies changes in bowel or bladder to me, denies overt abdominal pain but reports she has not eaten well in the past 2 days so her stomach feels empty, she does endorse the vomiting but notes she has been vomiting up phlegm. Only recent medication change is gabapentin which she took on and did fine in the morning however took it again Monday but notes symptoms did not start until around 10 AM on Monday. Denies any leg swelling, no new rashes bleeding bruising, does report compliance with her salt tabs. Neurologic History PAtient symptoms started Sat morning - was throwing up and peeing a lot and having a severe headache. And kept getting weak all over. Patient does not endorse weakness on the R leg - but noted that she would fall to the R side but not actually weak on the R leg. She then states she did not have numbness on the R leg but she just fell Right-doyle so assumed she was weak. This started while she was driving and suddenly had dizziness - suddenly had dysequilibrium no room spinning. She started feeling ill and started vomitting. SCOTT started later. Nausea and weakness all lasted all through Sat and Sun. No vision changes but appeared to have oscillipsia when looking around Monday night. All that improved Monday. Nausea was unclear if it was there when she came to hospital. Denies diarrhea, no belly pain. She started gabapentin night - was taking it for leg restlessness and discomfort. No other changes in medications. On further questioning she has been on gabapentin for several weeks but stopped it for 4-5 days to see how she would feel (she felt poorly, had headache and more weakness in the legs) and restarted it and felt well shortly after. Of note she did stop her xanax as she was told to not take it while on gabapentin however she was only taking 1-2 times a week. BP was high on arrival, normally 130-150. She normally has hyponatremia but never goes as low as 122. Neurologic Exam -? General: Laying comfortably in bed; in no acute distress. -? HENT: Normal oropharynx and mucosa. Normal external appearance of ears and nose. Exophthalmos. -? Neck: Supple, no pain or tenderness -? CV:? No peripheral edema. -? Pulmonary:? Normal respiratory effort. -? Ext: No cyanosis, edema, or deformity -? Skin: No rash. Normal palpation of skin.? -? Musculoskeletal: full range of motion; no joint tenderness. Normal digits and nails by inspection. No clubbing. -? NEURO: -? Mental Status: The patient was alert and oriented to time, place, and person. Normal recent/remote memory, concentration, and general fund of knowledge. -? Language: speech is clear.? Naming, repetition, fluency, and comprehension intact. -? Cranial Nerves: PERRL 2mm/brisk. EOMI, visual vences full, R eye ptosis is baseline no facial asymmetry, facial sensation intact, hearing intact, tongue midline, no evidence of atrophy or fibrillations. -? Motor: normal bulk, tone, and strength throughout. No pronator drift or satelliting. Upper and lower extremities equal bilaterally. -? Detailed strength exam as performed by the nurse/SHARMIN and witnessed by the physician: R L SA 5 5 EE 5 5 EF WE WF Certified Travel Counselor 5 5 HF KE KF DF PF -? Tone: is normal and bulk is normal -? Sensation- Intact to light touch bilaterally -? Coordination: No dysmetria on [id number], finger follow finger or [id number]-jena-hbey. -? Gait- Gait initiation was normal. Narrow base with good heel strike and stride length was observed during ambulation. Turns were in stride. Patient was able to walk normally in tandem. Romberg was normal. [facility] Medical History (Updated 03/30/25 @ 17:[address] Kaleigh Holt MD) Nocturia Vaginal atrophy Female genital prolapse, unspecified Bowel obstruction Renal artery stenosis Hypertensive urgency Urinary frequency COVID-19 Difficulty balancing when standing Knee pain Fatigue Heart disease SOB (shortness of breath) Kidney disease Skin cancer Hyponatremia Atherosclerotic heart disease of jackson coronary artery without angina pectoris PAD (peripheral artery disease) Hypertensive urgency Chest pain Non-rheumatic mitral regurgitation CKD (chronic kidney disease) Vaginal wall prolapse Pessary maintenance Anxiety and depression Near syncope CVA (cerebral vascular accident) HLD (hyperlipidemia) Syncope and collapse Syncope due to orthostatic hypotension History of gastroesophageal reflux (GERD) Essential hypertension Home Medications ?Medication ?Instructions ?Recorded ?Last Taken ?Type cholecalciferol (vitamin D3) 25 25 mcg PO DAILY vit D3 04/09/23 03/29/25 History mcg (1,000 unit) capsule aspirin 81 mg tablet,delayed 81 mg PO DAILY heart 04/19/23 03/29/25 History release acetaminophen 500 mg tablet 1,000 mg PO Q8H PRN pain 10/28/23 03/30/25 History levocetirizine 5 mg tablet 5 mg PO DAILY #90 TABLETS 07/05/24 03/29/25 Rx ezetimibe 10 mg tablet 10 mg PO DAILY high cholesterole 07/08/24 03/29/25 Rx #90 TABLETS hydralazine 50 mg tablet 50 mg PO TID #270 tabs 10/17/24 03/30/25 Rx carvedilol 25 mg tablet 25 mg PO BID #180 tabs 12/23/24 03/30/25 Rx losartan 50 mg tablet 50 mg PO BID heart #180 tabs 01/02/25 03/30/25 Rx pantoprazole 40 mg tablet,delayed 40 mg PO DAILY #90 TABLETS 01/07/25 03/29/25 Rx release potassium chloride 20 mEq 20 meq PO DAILY #90 TABLETS 01/14/25 03/29/25 Rx tablet,extended release ticagrelor 90 mg tablet (Brilinta) 90 mg PO BID #180 tabs 02/06/25 03/29/25 Rx glucosamine 750 [id number] 1 tab PO BID 02/26/25 03/29/25 History no1 644 mg-C 30 mg-rogelio 1 mg tablet (Osteo Bi-Flex Triple Strength) alprazolam 0.5 mg tablet (Xanax) 0.5 mg PO DAILY PRN anxiety #15 02/28/25 Unknown Rx tabs gabapentin 100 mg capsule 100 mg PO QHS #30 caps 02/28/25 Unknown Rx sodium chloride 1,000 mg soluble See Rx Instructions PO QAM low 03/13/25 03/29/25 Rx tablet sodium #150 TABLETS buspirone 5 mg tablet 7.5 mg (1.5 x 5 mg) PO DAILY PRN 03/17/25 03/29/25 Rx for anxiety #135 TABLETS Allergy/AdvReac Type Severity Reaction Status Date / Time amlodipine AdvReac Intermediate swelling Verified 03/30/25 13:09 [id number] Reductase AdvReac leg muscle Verified 03/30/25 13:09 Inhibitor (Aaicmvg-Qbk-Ape weakness Reductase Inhibitor) Family History Mother CAD (coronary artery disease) CVA (cerebral vascular accident) Brother CVA (cerebral vascular accident) Heart disease Kidney disease Diabetes Sister CAD (coronary artery disease) Sister Diabetes Brother Diabetes Brother CAD (coronary artery disease) Other Cancer Hypertension Surgical History Presence of stent in coronary artery (05/11/24) History of right knee joint replacement S/P skin biopsy (~08/2022) H/O oral surgery History of renal stent Presence of coronary angioplasty implant and graft (~03/18/20) History of bilateral cataract extraction Social History household members: other details: granddaughter 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 Smoking Status: Never smoker Electronic Cigarette Use: not used alcohol intake: never substance use type: does not use caffeine: No what type of physical activity do you participate in: none seatbelt use: always do you feel safe at home: Yes additional social history: - Retired 1 adopted daughter-, drug use Vital Signs Vital Signs Vital Signs: 03/30/25 13:09 03/30/25 13:16 03/30/25 14:09 Temperature 98.6 F Temperature Source Oral Pulse Rate 65 Pulse Strength Respiratory Rate 22 H Blood Pressure 228/90 H 232/82 H 191/75 H Blood Pressure Mean 136 132 113 Blood Pressure Source Blood Pressure Position Blood Pressure Location Pulse Ox 97 Oxygen Delivery Method Room Air 03/30/25 16:11 03/30/25 16:15 03/30/25 16:20 Temperature 98.2 F Temperature Source Pulse Rate 71 76 76 Pulse Strength Respiratory Rate 13 16 16 Blood Pressure 173/66 H 177/65 H 177/65 H Blood Pressure Mean 101 97 102 Blood Pressure Source Blood Pressure Position Blood Pressure Location Pulse Ox 93 95 Oxygen Delivery Method Room Air 03/30/25 16:30 03/30/25 16:30 03/30/25 16:45 Temperature Temperature Source Pulse Rate 72 Pulse Strength Respiratory Rate 17 Blood Pressure 175/67 H 175/67 H 186/75 H Blood Pressure Mean 99 99 107 Blood Pressure Source Blood Pressure Position Blood Pressure Location Pulse Ox Oxygen Delivery Method 03/30/25 16:45 03/30/25 17:00 03/30/25 17:59 Temperature 98.2 F Temperature Source Oral Pulse Rate 76 78 75 Pulse Strength Respiratory Rate 19 H 16 Blood Pressure 186/75 H 186/67 H 170/68 H Blood Pressure Mean 107 102 102 Blood Pressure Source Monitor Blood Pressure Position Semi-Fowlers Blood Pressure Location Right Arm Pulse Ox 97 97 Oxygen Delivery Method Room Air Room Air 03/30/25 21:59 03/30/25 22:04 03/30/25 22:09 Temperature 97.8 F Temperature Source Temporal Pulse Rate 69 69 Pulse Strength Normal (2+) Respiratory Rate 16 Blood Pressure 170/68 H Blood Pressure Mean 102 Blood Pressure Source Monitor Blood Pressure Position Semi-Fowlers Blood Pressure Location Right Arm Pulse Ox 96 Oxygen Delivery Method Room Air 03/31/25 01:59 03/31/25 05:59 03/31/25 06:16 Temperature 97.4 F L 98.8 F Temperature Source Temporal Oral Pulse Rate 67 70 70 Pulse Strength Respiratory Rate 16 18 Blood Pressure 165/59 H 170/65 H Blood Pressure Mean 94 100 Blood Pressure Source Monitor Monitor Blood Pressure Position Semi-Fowlers Semi-Fowlers Blood Pressure Location Left Arm Left Arm Pulse Ox 96 96 Oxygen Delivery Method Room Air Room Air Weight Weight: 70.4 kg Body Mass Index (BMI) 31.3 EEG Results Procedure Details EEG Procedure Details: SANJIV PEOPLES is a 79 year old F with a past medical history of , who presents for evaluation of Electroencephalogram on DATE at TIME Lab / Micro Data 03/31/25 06:40 03/31/25 06:40 Labs: Laboratory Results - last 24 hr 03/30/25 13:19: WBC 5.4, RBC 3.83 L, Hgb 12.1, Hct 33.5 L, MCV 87.5, MCH 31.6, MCHC 36.1 H, RDW Std Deviation 39.8, RDW Coeff of Lucía 12.5, Plt Count 279, MPV 9.8, Immature Gran % (Auto) 0.600, Neut % (Auto) 60.7, Lymph % (Auto) 30.2, [place] % (Auto) 8.1, Eos % (Auto) 0.2, Baso % (Auto) 0.2, Absolute Neuts (auto) 3.3, Absolute Lymphs (auto) 1.64, Nucleated RBC % 0, Sodium 122 L, Potassium 3.6, Chloride 89 L, Carbon Dioxide 19.2 L, Anion Gap 14, BUN 11, Creatinine 0.62 L, Estim Creat Clear Calc 49.35 L, Est GFR (MDRD) Non-Af 90, BUN/Creatinine Ratio 18.2, Glucose 107 H, Calcium 9.0, Total Bilirubin 0.60, Direct Bilirubin Cancelled, AST 23, ALT 13, Alkaline Phosphatase 87, Troponin T High Sens Cancelled 03/30/25 13:19: Troponin T High Sens 13, NT pro BNP II 2710 H, Total Protein 7.1, Albumin 3.9, Globulin 3.2, Albumin/Globulin Ratio 1.2 03/30/25 16:19: Troponin T Hi Sens 2 Hr 12 03/30/25 18:30: Sodium 122 L, Potassium 3.6, Chloride 89 L, Carbon Dioxide 20.2 L, Anion Gap 12, BUN 10, Creatinine 0.55 L, Estim Creat Clear Calc 49.28 L, Est GFR (MDRD) Non-Af 93, BUN/Creatinine Ratio 18.6, Glucose 111 H, Serum Osmolality 267 L, Calcium 8.5 03/30/25 19:13: Urine Color Straw, Urine Clarity Sl. Cloudy, Urine pH 6.0, Ur Specific [place] 1.015, Urine Protein 30 H, Urine Glucose (UA) Normal, Urine Ketones 15 H, Urine Occult Blood 10 H, Urine Nitrite Negative, Urine Bilirubin Negative, Urine Urobilinogen Normal, Ur Leukocyte Esterase 100 H, Urine RBC 0-5 SEEN, Urine WBC 5-10 SEEN, Ur Squamous Epith Cells 0-5 SEEN, Urine Bacteria 4+, Urine Mucus 0 SEEN, Urine Osmolality 571, Ur Random Sodium 93, Urine Creatinine 49.50, Urine Potassium 45.1, Urine Chloride 99, Urine Urea Nitrogen 340, Urine Opiates Screen PRESUMPTIVE POSITIVE, U Buprenorphine Qual NEGATIVE, Ur Oxycodone Screen PRESUMPTIVE POSITIVE, Urine Methadone Screen NEGATIVE, Urine Fentanyl Screen NEGATIVE, Ur Barbiturates Screen NEGATIVE, Ur Phencyclidine Scrn NEGATIVE, Ur Amphetamines Screen NEGATIVE, U Benzodiazepines Scrn NEGATIVE, Urine Cocaine Screen NEGATIVE, U Cannabinoids Screen NEGATIVE 03/30/25 22:30: Sodium 123 L, Potassium 3.3, Chloride 91 L, Carbon Dioxide 20.4 L, Anion Gap 12, BUN 10, Creatinine 0.64 L, Estim Creat Clear Calc 49.28 L, Est GFR (MDRD) Non-Af 89, BUN/Creatinine Ratio 16.4, Glucose 120 H, Calcium 8.7 03/31/25 02:51: Sodium 124 L, Potassium 3.1 L, Chloride 93 L, Carbon Dioxide 20.0 L, Anion Gap 12, BUN 12, Creatinine 0.63 L, Estim Creat Clear Calc 49.11 L, Est GFR (MDRD) Non-Af 90, BUN/Creatinine Ratio 18.4, Glucose 91, Calcium 8.3 03/31/25 06:40: WBC 8.1, RBC 3.52 L, Hgb 11.0 L, Hct 30.9 L, MCV 87.8, MCH 31.3, MCHC 35.6, RDW Std Deviation 41.0, RDW Coeff of Lucía 12.9, Plt Count 268, MPV 9.3, Immature Gran % (Auto) 0.400, Neut % (Auto) 72.2 H, Lymph % (Auto) 18.4 L, [place] % (Auto) 8.7, Eos % (Auto) 0.2, Baso % (Auto) 0.1, Absolute Neuts (auto) 5.8, Absolute Lymphs (auto) 1.49, Nucleated RBC % 0, Sodium 124 L, Potassium 3.2 L, Chloride 93 L, Carbon Dioxide 18.7 L, Anion Gap 12, BUN 11, Creatinine 0.62 L, Estim Creat Clear Calc 49.11 L, Est GFR (MDRD) Non-Af 90, BUN/Creatinine Ratio 18.5, Glucose 90, Calcium 8.4, TSH 2.480 Imaging Radiology Impression Brain CT 03/30/25 13:41 IMPRESSION: No acute intracranial abnormality. Reading Location: [facility] Chest X-Ray 03/30/25 14:10 IMPRESSION: NO SIGNIFICANT CHANGE SINCE THE PRIOR EXAM. Reading Location: [facility] Head/Neck CTA 03/30/25 16:27 IMPRESSION: 1. Motion artifact mildly limits evaluation. 2. No large vessel occlusion or arteriovenous malformation. 3. 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 Reading Location: [id number] Active Medications Active Medications Active Medications: Current Medications Generic Name Dose Route Start Last Admin Trade Name Freq PRN Reason Stop Dose Admin Acetaminophen 650 mg 03/30/25 18:08 Acetaminophen 325 Mg Tablet PO Q6H PRN PRN Pain 1-10 Or Fever >100.7 Albuterol Sulfate 2.5 mg 03/30/25 18:08 Albuterol 2.5 Mg/3 Ml Vial.Neb. INHALATION Q2H PRN PRN SOB &/OR WHEEZING Alprazolam 0.25 mg 03/30/25 18:08 03/30/25 22:13 Alprazolam 0.25 Mg Tablet PO 0.25 mg BID PRN PRN Administration ANXIETY Aspirin 81 mg 03/31/25 08:00 Aspirin E.C. 81 Mg Tablet PO BREAKFAST KRISH Buspirone HCl 7.5 mg 03/30/25 18:08 Buspirone 5 Mg Tablet PO TID PRN PRN for anxiety Carvedilol 25 mg 03/31/25 08:00 [facility] Protocol Ezetimibe 10 mg 03/31/25 10:00 Ezetimibe 10 Mg Tablet PO DAILY [facility] Hydralazine HCl 5 mg 03/30/25 18:08 Hydralazine 20 Mg/Ml Vial IV 03/31/25 18:09 Q30M PRN maintain BP parameters with HR <60 Hydralazine HCl 50 mg 03/30/25 22:00 03/31/25 06:16 Hydralazine 50 Mg Tablet PO 50 mg TID [facility] Administration Protocol Sodium Chloride 250 mls @ 15 mls/hr 03/30/25 17:45 03/31/25 04:20 IV 0 mls/hr .[id number] PRN Infusion Saline Flush Sodium Chloride 250 mls @ 15 mls/hr 03/30/25 17:45 IV .[id number] PRN Additional IVPB Infusion Ceftriaxone Sodium 1 gm in 50 mls @ 100 mls/hr 03/31/25 02:55 03/31/25 06:17 Rocephin IV Infused 2200 KRISH Infusion Labetalol HCl 10 - 20 mg 03/30/25 18:08 Labetalol 20 Mg/4 Ml Vial IV 03/31/25 18:09 Q10M PRN PRN maintain BP parameters with HR >/=60 Loratadine 10 mg 03/31/25 10:00 Loratadine 10 Mg Tablet PO DAILY [facility] Losartan Potassium 50 mg 03/30/25 22:00 03/30/25 22:04 Losartan Potassium 50 Mg Tablet PO 50 mg BID [facility] Administration Protocol Melatonin 10 mg 03/30/25 18:08 Melatonin 10 Mg Tablet PO QHS PRN PRN INSOMNIA Morphine Sulfate 2 mg 03/30/25 18:08 Morphine 2 Mg/Ml Syringe IV Q3H PRN PRN Pain Score 6-10 Ondansetron HCl 4 mg 03/30/25 18:08 Ondansetron 4 Mg/2 Ml Vial IV Q8H PRN PRN NAUSEA/VOMITING Oxycodone HCl 2.5 mg 03/30/25 18:08 Oxycodone 5 Mg Tablet PO Q4H PRN PRN Pain Score 4-10 Pantoprazole Sodium 40 mg 03/31/25 10:00 Pantoprazole Sodium 40 Mg Tablet PO DAILY KRISH Potassium Chloride 20 meq 03/31/25 08:00 Potassium Chloride Oral Tablet 20 Meq PO DAILYCM RKISH Senna/Docusate Sodium 2 tablet 03/30/25 18:08 Senna/Docusate Sodium 1 Tablet PO BID PRN PRN Constipation Sodium Chloride 10 - 40 ml 03/30/25 17:45 03/30/25 22:08 0.9% Saline Lock 10 Ml Syringe IV 10 ml UD PRN Administration SALINE FLUSH Sodium Chloride 1 gm 03/30/25 22:00 03/30/25 22:05 Sodium Chloride 1 Gm Tablet PO 1 gm BID KRISH Administration Ticagrelor 90 mg 03/30/25 22:00 03/30/25 22:05 Ticagrelor 90 Mg Tablet PO 90 mg BID KRISH Administration NIHSS NIHSS Nursing Documentation NIHSS Nursing Documentation: NIHSS: Ischemic Stroke/TIA Start: 03/30/25 18:08 Text: For PCU Patients: NIH and Neuro Check every 4 Status: Active hours, PRN and with change in RN caregiver. Freq: [id number] Protocol: Activity Type Activity Date Activity User E-sign Co-sign Detail Recorded Client Recorded Date Recorded By Document 03/31/25 05:59 EY [id number] 03/31/25 06:19 EY 03/31/25 05:59 NIH Stroke Scale [NIHSS] A score of 0 is normal or asymptomatic . Total possible score is 42. Inpatient: RN or Physician to activate a stroke alert for onset of new stroke symptoms or with NIHSS increase >/= 3 points. Following change in neurological status, NIHSS will be performed per physician order or more frequently PRN. -1a. Level of Consciousness 0 - Alert; keenly responsive -1b. LOC Questions 0 - Answers BOTH questions correctly -1c. LOC Commands 0 - Performs BOTH tasks correctly -2. Best Gaze 0 - Normal -3. Visual 0 - No visual loss -4. Facial Palsy 0 - Normal symmetrical movements -5a. Left Arm 0 - No drift; arm holds 90 ( or 45) degrees for full 10 seconds -5b. Right Arm 0 - No drift; arm holds 90 ( or 45) degrees for full 10 seconds -6a. Left Leg 0 - No drift; leg holds 30- degree position for full 5 seconds -6b. Right Leg 0 - No drift; leg holds 30- degree position for full 5 seconds -7. Limb Ataxia 0 - Absent -8. Sensory 0 - Normal; no sensory loss -9. Best Language 0 - No aphasia; normal -10. Dysarthria 0 - Normal -11. Extinction and Inattention 0 - No abnormality -Total 0 Query Text:A score of 0 is normal or asymptomatic. Total possible score is 42 . ED: Notify Physician for NIHSS increase by > / = 3 points. Inpatient: RN or Physician to activate a stroke alert for NIHSS increase of > / = 3 points. Coma Scale [Assess] -Eye Opening Spontaneous -Motor Obeys Commands -Verbal Oriented [Total] -Coma Scale Total 15
[2025-03-31 08:17] LABS: BUN 11 mg/dL (4-19); BUN/Creat Ratio 16.5 RATIO (10-20); Cholesterol 166 mg/dL (<=200); Estimated Creatinine Clearance 49.11 ml/min (50-250); Glucose 88 mg/dL (70-99); Low Density Lipoprotein Calc. 101 mg/dL; Triglycerides 87 mg/dL; Very Low Density Lipoprotein 17 mg/dL (5-40); cholesterol:hdl ratio screen 3.51
[2025-03-31] MEDS: Potassium Chloride Oral Tablet 20 MEQ 40 MEQ PO (08:32)
[2025-03-31] MEDS: Potassium Chloride Oral Tablet 20 MEQ PO (08:32)
[2025-03-31] MEDS: Aspirin E.C. 81 MG Tablet PO (08:33)
--- NOTE | 2025-03-31 09:55 | MRI_ITS ---
PROCEDURE: BRAIN WITHOUT CONTRAST 03/31/2025 REASON FOR EXAM: RIGHT LOWER EXTREMITY WEAKNESS, RESOLVED DYSARTHRI TECHNIQUE: Procedure Code: MRIBR Modality: MR Procedure: BRAIN WITHOUT CONTRAST Multiplanar and multisequence images were obtained. COMPARISON: March 30, 2025 FINDINGS: Brain: T2 prolongation in the periventricular white matter and deep white matter of the frontal and parietal lobes. A few scattered foci are shown in the subcortical white matter as well. No hemorrhage or extra-axial collection. No restricted diffusion is seen to suggest acute ischemia at this time. Ventricles: Mild volume loss commensurate with age. Major Intracranial Vessels: Flow voids are unremarkable. Correlate with the recent CT angiogram. Anterior communicating artery aneurysm better seen on CT angiogram. Sinuses: Clear Mastoids: Clear Bilateral lens implants. MRI/Brain without Contrast IMPRESSION: Chronic microvascular ischemic changes. Mild volume loss. No acute ischemia. Reading Location: [id number]
[2025-03-31] MEDS: TICAGRELOR 90 MG TABLET PO ×2 (10:40→20:53)
--- NOTE | 2025-03-31 11:27 | CASEMGMT ---
Social Work Per imaging pt negative for stroke, therefore PHQ9 not completed. TOMÁS Granado
--- NOTE | 2025-03-31 13:22 | CASEMGMT ---
YESSY GANDHI Assessment Face to Face with patient for initial transition planning/care coordination assessment. YESSY GANDHI introduced self and role at [facility], pt voices understanding. Pt is A&Ox4 and is resting comfortably in the chair and is calm. Pt's GD and niece are at the bedside. Care providers, pharmacy, and demographics verified. Admitting dx: CVA r/o. Hyponatremia PCP: Aracely Blanc Specialists: Dorothy VILLANUEVA (Uro) Preferred Pharmacy: [facility] Insurance: [employer] Prescription Benefit: Yes LNOK: Chantelle (Niece), Dory (GD) Living Arrangements: Pt lives with her GD in a single story home with a flat entrance ADLs/IADLs: Pt reports that she is mainly indep and that her GD can assist as needed. Pt did well with PT, see sagrario. Transportation: Self, niece, GD DME: Access to FWW, BP Machine, Pulse ox, shower chair, and grab bars HHC/SNF: Report hx with [facility] Pt?s goal: Home Plan: See echo and MRI results. At this time, the pt denies any homegoing needs. Pt states that she feels safe returning home with her family and denies any additional therapy needs or resources. Pt denies any further questions or concerns at this time. Report given to CONCRETE ROD BUSTER CM. Sixto Friedman RN, CM
--- NOTE | 2025-03-31 14:10 | CHAPLAIN ---
Type of Pastoral Visit _x__ Initial Visit ___ Follow-up Visit ___ On-call Visit ___ General Patient Visit ___ Spiritual Assessment ___ Family Conference ___ Bereavement ___ Rapid Response ___ Code Blue ___ Other (describe below) Pastoral Care Referral From _x__ Patient ___ Family ___ Nurse ___ Physician ___ Planting Material Carrier ___ Employee Service Officer ___ Other (describe below) Sacrament/Intervention _x__ Active listening ___ Anointing ___ Samaritan ___ Bereavement ___ Communion ___ Leeann exploration ___ ___ Life review _x__ Prayer ___ Reconciliation ___ Sacrament of Sick ___ Supportive presence ___ Wedding ___ Other (describe below) Pastoral Comments patient right away recognizes this egg breaker from previous visits; pt has some family members in the room and so this is kept brief; pt is offered support for now or to return but she accepts now with statement just say a prayer for me; pt otherwise expresses hope to be released soon
--- NOTE | 2025-03-31 16:03 | PN_ITS ---
Subjective Subjective Patient seen and examined with her nurse by her bedside. She had no complaints and was sitting comfortably in bed. She denied any fever, any chills, any nausea or vomiting or any other symptoms. Review of systems otherwise negative. Objective Data Objective Data Vital Signs: Vital Signs Temp Pulse Resp BP Pulse Ox O2 Del Method 97.9 F 71 18 176/71 H 94 Room Air 03/31/25 14:30 03/31/25 15:05 03/31/25 14:30 03/31/25 14:30 03/31/25 14:30 03/31/25 14:30 Oxygen Delivery Method Room Air Weight: 155 lb 3.287 oz Body Mass Index (BMI) 31.3 Intake & Output: Intake and Output for Last 24 Hours 03/29/25 03/30/25 03/31/25 23:59 23:59 23:59 Intake Total 1180 / 1180 87.5 / 87.5 Output Total 200 / 200 Balance 980 / 980 87.5 / 87.5 Lab / Micro Data 03/31/25 06:40 03/31/25 06:40 Labs: Laboratory Results - last 24 hr 03/30/25 13:19: Direct Bilirubin Cancelled, Troponin T High Sens Cancelled 03/30/25 16:19: Troponin T Hi Sens 2 Hr 12 03/30/25 18:30: Sodium 122 L, Potassium 3.6, Chloride 89 L, Carbon Dioxide 20.2 L, Anion Gap 12, BUN 10, Creatinine 0.55 L, Estim Creat Clear Calc 49.28 L, Est GFR (MDRD) Non-Af 93, BUN/Creatinine Ratio 18.6, Glucose 111 H, Serum Osmolality 267 L, Calcium 8.5 03/30/25 19:13: Urine Color Straw, Urine Clarity Sl. Cloudy, Urine pH 6.0, Ur Specific Irene 1.015, Urine Protein 30 H, Urine Glucose (UA) Normal, Urine Ketones 15 H, Urine Occult Blood 10 H, Urine Nitrite Negative, Urine Bilirubin Negative, Urine Urobilinogen Normal, Ur Leukocyte Esterase 100 H, Urine RBC 0-5 SEEN, Urine WBC 5-10 SEEN, Ur Squamous Epith Cells 0-5 SEEN, Urine Bacteria 4+, Urine Mucus 0 SEEN, Urine Osmolality 571, Ur Random Sodium 93, Urine Creatinine 49.50, Urine Potassium 45.1, Urine Chloride 99, Urine Urea Nitrogen 340, Urine Opiates Screen PRESUMPTIVE POSITIVE, U Buprenorphine Qual NEGATIVE, Ur Oxycodone Screen PRESUMPTIVE POSITIVE, Urine Methadone Screen NEGATIVE, Urine Fentanyl Screen NEGATIVE, Ur Barbiturates Screen NEGATIVE, Ur Phencyclidine Scrn NEGATIVE, Ur Amphetamines Screen NEGATIVE, U Benzodiazepines Scrn NEGATIVE, Urine Cocaine Screen NEGATIVE, U Cannabinoids Screen NEGATIVE 03/30/25 22:30: Sodium 123 L, Potassium 3.3, Chloride 91 L, Carbon Dioxide 20.4 L, Anion Gap 12, BUN 10, Creatinine 0.64 L, Estim Creat Clear Calc 49.28 L, Est GFR (MDRD) Non-Af 89, BUN/Creatinine Ratio 16.4, Glucose 120 H, Calcium 8.7 03/31/25 02:51: Sodium 124 L, Potassium 3.1 L, Chloride 93 L, Carbon Dioxide 20.0 L, Anion Gap 12, BUN 12, Creatinine 0.63 L, Estim Creat Clear Calc 49.11 L, Est GFR (MDRD) Non-Af 90, BUN/Creatinine Ratio 18.4, Glucose 91, Calcium 8.3 03/31/25 06:40: WBC 8.1, RBC 3.52 L, Hgb 11.0 L, Hct 30.9 L, MCV 87.8, MCH 31.3, MCHC 35.6, RDW Std Deviation 41.0, RDW Coeff of Lucía 12.9, Plt Count 268, MPV 9.3, Immature Gran % (Auto) 0.400, Neut % (Auto) 72.2 H, Lymph % (Auto) 18.4 L, Mercer % (Auto) 8.7, Eos % (Auto) 0.2, Baso % (Auto) 0.1, Absolute Neuts (auto) 5.8, Absolute Lymphs (auto) 1.49, Nucleated RBC % 0, Sodium 124 L, Potassium 3.2 L, Chloride 93 L, Carbon Dioxide 18.7 L, Anion Gap 12, BUN 11, Creatinine 0.65 L , Estim Creat Clear Calc 49.11 L, Est GFR (MDRD) Non-Af 90, BUN/Creatinine Ratio 16.5, Glucose 88, Calcium 8.4, Triglycerides 87, Cholesterol 166, LDL Cholesterol, Calc 101, VLDL Cholesterol 17, HDL Cholesterol 47, Cholesterol/HDL Ratio 3.51, TSH 2.480 Radiography Diagnostic Testing: Radiology Impression Head/Neck CTA 03/30/25 16:27 IMPRESSION: 1. Motion artifact mildly limits evaluation. 2. No large vessel occlusion or arteriovenous malformation. 3. 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 Reading Location: [facility] Echocardiogram 03/30/25 18:08 Interpretation Summary Normal LV size. The left ventricular ejection fraction is 65 %. Moderately calcified aortic root. Pulmonary artery systolic pressure is 30 mmHg. Ordering Physician: Kaleigh Holt Performed By: Miranda Blanco RDCS Brain MRI 03/31/25 09:55 IMPRESSION: Chronic microvascular ischemic changes. Mild volume loss. No acute ischemia. Reading Location: [facility] Physical Exam Const alert, oriented x3 and no apparent distress General Appearance: cooperative HEENT normocephalic, head/scalp atraumatic, moist oral mucous membranes and oropharynx normal Neck no lymphadenopathy and supple Lymph Lymphatic: no lymphedema noted Resp normal respiratory effort, normal air movement and clear to auscultation bilaterally Cardio regular rate, regular rhythm, S1 normal heart sound, S2 normal heart sound and no murmurs GI normal to inspection, nondistended, normoactive bowel sounds, soft to palpation and non-tender Extremity General Extremity: no tenderness to palpation of joints or extremities Skin General Skin Exam: no breakdown Neuro no focal motor deficits and no sensory deficits noted Psych thought process normal, cooperative and affect normal Appearance: appropriate Assessment & Plan Assessment/Plan (1) Right leg weakness: PLAN: Plan #Right lower extremity weakness * CT of the brain showed no acute intracranial pathology. CT of the head and neck showed no hemodynamically significant stenosis. * MRI of the brain done today was negative for any evidence of stroke. On aspirin and Brilinta. Neurology on board * per neurology, unclear the etiology * Continue holding gabapentin for now. PT OT on board. * 2D echo today showed EF of 65% with no regional wall motion abnormalities. * Per neurology's continue holding gabapentin for now and consider restarting on outpatient after several weeks if her restless leg syndrome remains severe #Hyponatremia: * Patient does have chronic hyponatremia. Sodium today is 124. Was 122 on admission. * TSH is within normal limits. Gabapentin currently on hold. 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 Also on salt tablets. #UTI: Urinalysis showed 4+ bacteria. Now on IV ceftriaxone. Urine cultures pending. #Hypokalemia: Potassium today is 3.2. Will replace and trend. #Hypertensive urgency: Patient had a headache on admission. Blood pressure was markedly elevated in the 200s but is now much better. Continue current BP meds- losartan and carvedilol. IV hydralazine as needed #GERD: On PPI #History of CAD s/p stents: On aspirin and carvedilol as well as ezetimibe and losartan and Brilinta #History of CVA: On aspirin and NSTEMI. #History of anxiety: #DVT prophylaxis: SCDs Charges/Coding Visit Charges Inpatient E&M: 26847 Subs Hosp L2
[2025-04-01] VITALS (11 sets, daily range): BP systolic 137–177; BP diastolic 51–73; PULSE 69–74; RESP 16; TEMP 36.4–37; O2SAT 95–99; BMI 31.3; BMI 31.6
[2025-04-01] MEDS: 0.9% Saline Lock 10 ML Syringe IV ×2 (03:50→21:38)
[2025-04-01 06:04] LABS: Hematocrit 31.7 % (37-47); Hemoglobin 10.8 g/dL (12.0-15.0); Immature Granulocytes Count 0.020 X10^3/uL (0.0-0.0); Mean Corp Hgb Conc 34.1 g/dL (32-36); Mean Corpuscular Volume 91.1 fL (81-99); Mean Platelet Vol. 9.9 fl (6.2-12.0); NRBC Flagged by Analyzer 0 % (0-5); Platelet Count 274 K/mm3 (150-450); RBC Distribution Width CV 13.0 % (11.6-14.6); RBC Distribution Width SD 43.1 fl (35.1-43.9); Red Blood Count 3.48 M/mm3 (4.2-5.4); White Blood Count 5.2 K/mm3 (4.4-11.0)
[2025-04-01 07:18] LABS: Anion Gap 11 (5-15); BUN 14 mg/dL (4-19); BUN/Creat Ratio 20.8 RATIO (10-20); Calcium,Total 8.5 mg/dL (7.6-11.0); Carbon Dioxide 19.4 mmol/L (21.0-32.0); Chloride 96 mmol/L (98-108); Estimated Creatinine Clearance 48.46 ml/min (50-250); Glucose 91 mg/dL (70-99); Potassium 4.2 mmol/L (3.3-5.1)
[2025-04-01] MEDS: TICAGRELOR 90 MG TABLET PO ×2 (10:19→21:38)
[2025-04-01] MEDS: Potassium Chloride Oral Tablet 20 MEQ PO (10:19)
[2025-04-01] MEDS: Aspirin E.C. 81 MG Tablet PO (10:19)
--- NOTE | 2025-04-01 13:49 | PN_ITS ---
Subjective Subjective Patient seen and examined. She had no complaitns and felt well. She had an uneventful night. Review of systems is otherwise negative. MRI of the brain was negative for any evidence of stroke. Objective Data Objective Data Vital Signs: Vital Signs Temp Pulse Resp BP Pulse Ox O2 Del Method 98.6 F 70 16 177/70 H 99 Room Air 04/01/25 10:15 04/01/25 10:15 04/01/25 10:15 04/01/25 10:15 04/01/25 10:15 04/01/25 10:15 Oxygen Delivery Method Room Air Weight: 156 lb 4.924 oz Body Mass Index (BMI) 31.6 Intake & Output: Intake and Output for Last 24 Hours 03/30/25 03/31/25 04/01/25 23:59 23:59 23:59 Intake Total 1180 / 1180 957.5 / 1197.5 240 / 240 Output Total 200 / 200 350 / 350 Balance 980 / 980 957.5 / 847.5 -110 / -110 Lab / Micro Data 04/01/25 04:59 04/01/25 04:59 Labs: Laboratory Results - last 24 hr 04/01/25 04:59: WBC 5.2, RBC 3.48 L, Hgb 10.8 L, Hct 31.7 L, MCV 91.1, MCH 31.0, MCHC 34.1, RDW Std Deviation 43.1, RDW Coeff of Lucía 13.0, Plt Count 274, MPV 9.9, Immature Gran % (Auto) 0.400, Neut % (Auto) 55.0, Lymph % (Auto) 28.2, Hand % (Auto) 14.4 H, Eos % (Auto) 1.4, Baso % (Auto) 0.6, Absolute Neuts (auto) 2.8, Absolute Lymphs (auto) 1.45, Nucleated RBC % 0, Sodium 126 L, Potassium 4.2, C hloride 96 L, Carbon Dioxide 19.4 L, Anion Gap 11, BUN 14, Creatinine 0.67 L, E stim Creat Clear Calc 48.46 L, Est GFR (MDRD) Non-Af 88, BUN/Creatinine Ratio 20.8 H, Glucose 91, Calcium 8.5 Physical Exam Const alert, oriented x3 and no apparent distress General Appearance: cooperative HEENT normocephalic, head/scalp atraumatic, moist oral mucous membranes and oropharynx normal Neck no lymphadenopathy and supple Lymph Lymphatic: no lymphedema noted Resp normal respiratory effort, normal air movement and clear to auscultation bilaterally Cardio regular rate, regular rhythm, S1 normal heart sound, S2 normal heart sound and no murmurs GI normal to inspection, nondistended, normoactive bowel sounds, soft to palpation and non-tender Extremity General Extremity: no tenderness to palpation of joints or extremities Skin General Skin Exam: no breakdown Neuro no focal motor deficits and no sensory deficits noted Psych thought process normal, cooperative and affect normal Appearance: appropriate Assessment & Plan Assessment/Plan (1) Right leg weakness: PLAN: Plan #Right lower extremity weakness * CT of the brain showed no acute intracranial pathology. CT of the head and neck showed no hemodynamically significant stenosis. * MRI of the brain done was negative for any evidence of stroke. On aspirin and Brilinta. Neurology on board * per neurology, unclear the etiology * Continue holding gabapentin for now. PT OT on board. * 2D echo showed EF of 65% with no regional wall motion abnormalities. * Per neurology's continue holding gabapentin for now and consider restarting on outpatient after several weeks if her restless leg syndrome remains severe #Hyponatremia: * Patient does have chronic hyponatremia. Sodium today is up to 126. Was 122 on admission. * TSH is within normal limits. Gabapentin currently on hold. 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 Also on salt tablets. #UTI: Urinalysis showed 4+ bacteria. Now on IV ceftriaxone. Urine cultures pending. #Hypokalemia: resolved. K is 4.2 today #Hypertensive urgency: * Patient had a headache on admission. Blood pressure was markedly elevated in the 200s but is now much better. * Continue current BP meds-losartan and carvedilol. IV hydralazine as needed * BP still poorly controlled. WIll increase hydralazine to 100mg tid. #GERD: On PPI #History of CAD s/p stents: On aspirin and carvedilol as well as ezetimibe and losartan and Brilinta #History of CVA: On aspirin and NSTEMI. #History of anxiety: #DVT prophylaxis: SCDs Charges/Coding Visit Charges Inpatient E&M: 09257 Subs Hosp L2
[2025-04-02] VITALS (8 sets, daily range): BP systolic 119–176; BP diastolic 53–71; PULSE 67–82; RESP 15–16; TEMP 36.3–37.2; O2SAT 97–100; BMI 31.4
[2025-04-02] MEDS: 0.9% Saline Lock 10 ML Syringe IV (06:04)
[2025-04-02 06:15] LABS: Hematocrit 30.5 % (37-47); Hemoglobin 10.4 g/dL (12.0-15.0); Immature Granulocytes Count 0.040 X10^3/uL (0.0-0.0); Mean Corp Hgb Conc 34.1 g/dL (32-36); Mean Corpuscular Volume 90.8 fL (81-99); Mean Platelet Vol. 9.9 fl (6.2-12.0); NRBC Flagged by Analyzer 0 % (0-5); Platelet Count 274 K/mm3 (150-450); RBC Distribution Width CV 13.1 % (11.6-14.6); RBC Distribution Width SD 43.4 fl (35.1-43.9); Red Blood Count 3.36 M/mm3 (4.2-5.4); White Blood Count 5.2 K/mm3 (4.4-11.0)
[2025-04-02 06:59] LABS: Anion Gap 9 (5-15); BUN 18 mg/dL (4-19); BUN/Creat Ratio 29.4 RATIO (10-20); Calcium,Total 8.3 mg/dL (7.6-11.0); Carbon Dioxide 22.0 mmol/L (21.0-32.0); Chloride 98 mmol/L (98-108); Estimated Creatinine Clearance 48.39 ml/min (50-250); Glucose 87 mg/dL (70-99); Potassium 4.1 mmol/L (3.3-5.1)
[2025-04-02] MEDS: Potassium Chloride Oral Tablet 20 MEQ PO (08:10)
[2025-04-02] MEDS: Aspirin E.C. 81 MG Tablet PO (08:10)
[2025-04-02] MEDS: TICAGRELOR 90 MG TABLET PO (10:16)
--- NOTE | 2025-04-02 10:36 | NURSING ---
Pt called out w/ C/o nausea with small watery emisis. Given diet [place]. Rounded w/ Dr Esposito who stated she had intended to D/c however she would prefer the nurse reach out with update after lunch for likely d/c at that time if all is well.
--- NOTE | 2025-04-02 16:17 | DCINST_ITS ---
Discharge Instructions DC O2, CPAP, BIPAP needs Home O2 Discharge instructions: No Dressing / Incision Discharge Activity: Return to Normal Activity Weight Bearing Status: Weight bearing as tolerated Dressing / Incision Call your doctor if you observe: Fever of 101 or Higher, Shortness of breath, Dizziness, Swelling in the ankles, Chest pain and Uncontrolled pain Follow Up Care Test Results: Test results from this visit will be discussed in further detail at your follow- up appointment, if applicable. Discharge Plan Admission Admit Date/Time: 03/30/25 17:23 Primary Reason for Your Visit: hyponatremia, TIA Attending Provider: Michell Esposito Primary Care Provider: Aracely Blanc Consulting Providers: Ford Horner; Valentino Camejo; Virginia Pettit; Lucy Carlos; Salome Rodríguez; Roddy Garcia; Michelle Lancaster; Pb Glaser; Dudley Roman; Barry Carter; Kourtney Duncan; Pooja Borjas; Erasto Campbell; Keke Baca; Serge Mcclelland; Ashwin Portillo; Harshal Barbosa; Prasad Barajas; Parish Pereyra; Debbie Joshua; Rona Lin; Kaleigh Holt Instructions Patient Instructions: Hyponatremia Ch Dc Discharge Orders/Prescriptions Prescriptions: Continued aspirin 81 mg tablet,delayed release (DR/EC) 81 mg PO DAILY hydralazine 50 mg tablet 50 mg PO TID Qty: 270 1RF Osteo Bi-Flex Triple Strength 750 mg-644 mg- 30 mg-1 mg tablet 1 tab PO BID alprazolam [Xanax] 0.5 mg tablet 0.5 mg PO DAILY PRN (Reason: anxiety) Qty: 15 0RF cholecalciferol (vitamin D3) 25 mcg (1,000 unit) capsule 25 mcg PO DAILY acetaminophen 500 mg Tablet 1,000 mg PO Q8H PRN (Reason: pain) levocetirizine 5 mg tablet 5 mg PO DAILY Qty: 90 1RF ezetimibe 10 mg tablet 10 mg PO DAILY Qty: 90 3RF carvedilol 25 mg tablet 25 mg PO BID Qty: 180 3RF Rx Instructions: must administer with a meal/food losartan 50 mg tablet 50 mg PO BID Qty: 180 1RF pantoprazole 40 mg tablet,delayed release (DR/EC) 40 mg PO DAILY Qty: 90 1RF potassium chloride 20 mEq tablet extended release 20 meq PO DAILY Qty: 90 1RF Brilinta 90 mg tablet 90 mg PO BID Qty: 180 3RF sodium chloride 1,000 mg tablet,soluble See Rx Instructions PO QAM Qty: 150 0RF Rx Instructions: orally every morning; buspirone 5 mg tablet 7.5 mg PO DAILY PRN (Reason: for anxiety) Qty: 135 1RF Discontinued gabapentin 100 mg capsule 100 mg PO QHS Qty: 30 0RF Referrals / Follow Up: Aracely Blanc MD [Primary Care Provider, Internal Medicine] - Within 1 Week Buster Chavez MD [Non-Staff -Ordering Privileges, Neurology] - Within 2 Weeks Disposition Disposition (needs filled in before D/C Order can be placed): Home, Self Care
--- NOTE | 2025-04-02 16:19 | DS.PCM_ITS ---
Providers Date of Admission: 03/30/25 Date of Discharge: 04/02/25 Primary Care Physician: Dr. Aracely Blanc MD Consultations 03/30/25 18:08 Consult: Tele-Neurology Routine Consulting Provider: [facility] Reason for Consult: Acute Ischemic Stroke/TIA EMERGENT Consult: No MD Notified: Yes Date Notified: 03/30/25 Time Notified: 19:55 Method of Notification: Answering Service Nursing Unit Staff Notify [facility] of Tele-Neurology Consult: Yes Reason For Visit: CVA RULE OUT, HYPONATREMIA Diagnosis Discharge Diagnosis (1) Right leg weakness: Status: Acute Code(s): R29.898 - Other symptoms and signs involving the musculoskeletal system Plan #Right lower extremity weakness * CT of the brain showed no acute intracranial pathology. CT of the head and neck showed no hemodynamically significant stenosis. * MRI of the brain done was negative for any evidence of stroke. On aspirin and Brilinta. Neurology on board * per neurology, unclear the etiology * Continue holding gabapentin for now. PT OT on board. * 2D echo showed EF of 65% with no regional wall motion abnormalities. * Per neurology's continue holding gabapentin for now and consider restarting on outpatient after several weeks if her restless leg syndrome remains severe #Hyponatremia: * Patient does have chronic hyponatremia. Sodium today is up to 126. Was 122 on admission. * TSH is within normal limits. Gabapentin currently on hold. 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 Also on salt tablets. #UTI: Urinalysis showed 4+ bacteria. Now on IV ceftriaxone. Urine cultures pending. #Hypokalemia: resolved. K is 4.2 today #Hypertensive urgency: * Patient had a headache on admission. Blood pressure was markedly elevated in the 200s but is now much better. * Continue current BP meds-losartan and carvedilol. IV hydralazine as needed * BP still poorly controlled. WIll increase hydralazine to 100mg tid. #GERD: On PPI #History of CAD s/p stents: On aspirin and carvedilol as well as ezetimibe and losartan and Brilinta #History of CVA: On aspirin and NSTEMI. #History of anxiety: #DVT prophylaxis: SCDs Medications at Discharge Home Medications cholecalciferol (vitamin D3) 25 mcg (1,000 unit) capsule 25 mcg PO DAILY vit D3 04/09/23 aspirin 81 mg tablet,delayed release 81 mg PO DAILY heart 04/19/23 acetaminophen 500 mg tablet 1,000 mg PO Q8H PRN pain 10/28/23 levocetirizine 5 mg tablet 5 mg PO DAILY allergies #90 TABLETS 07/05/24 ezetimibe 10 mg tablet 10 mg PO DAILY high cholesterole #90 TABLETS 07/08/24 hydralazine 50 mg tablet 50 mg PO TID blood pressure #270 tabs 10/17/24 carvedilol 25 mg tablet 25 mg PO BID #180 tabs 12/23/24 losartan 50 mg tablet 50 mg PO BID heart #180 tabs 01/02/25 pantoprazole 40 mg tablet,delayed release 40 mg PO DAILY reflux #90 TABLETS 01/07/25 potassium chloride 20 mEq tablet,extended release 20 meq PO DAILY supplement #90 TABLETS 01/14/25 ticagrelor 90 mg tablet (Brilinta) 90 mg PO BID anti platelet #180 tabs 02/06/25 glucosamine 750 [id number] no1 644 mg-C 30 mg-rogelio 1 mg tablet (Osteo Bi-Flex Triple Strength) 1 tab PO BID 02/26/25 alprazolam 0.5 mg tablet (Xanax) 0.5 mg PO DAILY PRN anxiety #15 tabs 02/28/25 sodium chloride 1,000 mg soluble tablet See Rx Instructions PO QAM low sodium #150 TABLETS 03/13/25 buspirone 5 mg tablet 7.5 mg (1.5 x 5 mg) PO DAILY PRN for anxiety #135 TABLETS 03/17/25 cefdinir 300 mg capsule 300 mg PO BID #10 caps 04/02/25 Hospital Course Operations None Procedures 2-D Echocardiogram Summary of Care Provided Minutes Spent on Discharge: 45 Hospital Course: Patient is an 79-year-old female with an extensive past medical history as outlined was admitted to the ED on 03/30/2025 with a complaint of nausea and vomiting. She had developed a headache the day before admission and was gradual in onset and started having nausea and vomiting in addition. Labs were essentially unremarkable. CT of the brain showed no acute intracranial pathology and chest x-ray showed no acute cardiopulmonary pathology. His sodium was also 122. She did have chronic hyponatremia but this was lower than her baseline. She also admitted to associated dizziness and also complained of weakness in the right lower extremity. She was therefore admitted to be managed for stroke rule out as well as symptomatic hyponatremia. CTA of the head and neck showed no acute hemodynamically significant stenosis. She had MRI of the brain which was negative for stroke. 2D echo showed EF of 65% and moderately calcified aortic root. Pulmonary artery systolic pressure of 30 mmHg. She was placed on sodium restriction due to her history of SIADH. Her salt tablets were also continued. Her sodium did come up and was 129 at time of discharge. Her urinalysis also showed 4+ bacteria and she was placed on IV ceftriaxone. Her gabapentin was discontinued per neurology and she was discharged home on 04/02/2025. Her sodium had come up to 129 which was around her baseline. She was discharged on p.o. cefdinir 300 mg twice daily for 5 days for UTI. She is follow-up with her primary care doctor and was referred to neurology on outpatient basis to determine whether the gabapentin should be started again on a trial basis later. Patient was seen and examined prior to discharge. She complained of some nausea and vomiting this morning but said had resolved and she wanted to go home. She had no other complaints. Review of systems otherwise negative. Labs and vitals reviewed. Home medication reviewed and reconciled. Physical Exam Const alert, oriented x3 and no apparent distress General Appearance: cooperative and comfortable HEENT normocephalic, head/scalp atraumatic, hearing grossly normal bilaterally, moist oral mucous membranes and oropharynx normal Mouth: oral and palatal mucosa normal Neck no lymphadenopathy and supple Lymph Lymphatic: no lymphedema noted Resp normal respiratory effort, normal air movement and clear to auscultation bilaterally Cardio regular rate, regular rhythm, S1 normal heart sound, S2 normal heart sound and no murmurs GI normal to inspection, nondistended, normoactive bowel sounds, soft to palpation and non-tender Extremity normal to inspection, full ROM and no clubbing, cyanosis or edema General Extremity: no tenderness to palpation of joints or extremities Skin no rashes or lesions noted General Skin Exam: no breakdown Neuro oriented x3, CN's II-XII intact bilaterally, moves all extremities, no focal motor deficits and no sensory deficits noted Sensorium / Orientation: awake and alert Motor Exam: strength 5/5 throughout Psych thought process normal, cooperative and affect normal Appearance: appropriate Weight / BMI Weight Weight: 155 lb 13.869 oz Body Mass Index (BMI) 31.4 ABG / Lab / Microbiology Data 04/02/25 05:10 04/02/25 05:10 Laboratory: Laboratory Results - last 24 hr 04/02/25 05:10: WBC 5.2, RBC 3.36 L, Hgb 10.4 L, Hct 30.5 L, MCV 90.8, MCH 31.0, MCHC 34.1, RDW Std Deviation 43.4, RDW Coeff of Lucía 13.1, Plt Count 274, MPV 9.9, Immature Gran % (Auto) 0.800, Neut % (Auto) 49.4, Lymph % (Auto) 30.8, [place] % (Auto) 15.7 H, Eos % (Auto) 2.3, Baso % (Auto) 1.0, Absolute Neuts (auto) 2.6, Absolute Lymphs (auto) 1.61, Nucleated RBC % 0, Sodium 129 L, Potassium 4.1, Chloride 98, Carbon Dioxide 22.0, Anion Gap 9, BUN 18, Creatinine 0.60 L, Estim Creat Clear Calc 48.39 L, Est GFR (MDRD) Non-Af 90, BUN/Creatinine Ratio 29.4 H, Glucose 87, Calcium 8.3 D/C Instructions Discharge Activity: Return to Normal Activity Weight Bearing Status: Weight bearing as tolerated Call your doctor if you observe: Fever of 101 or Higher, Shortness of breath, Dizziness, Swelling in the ankles, Chest pain and Uncontrolled pain DC O2, CPAP, BIPAP Needs Home O2 Discharge instructions: No DC home with Oxygen: No Meaningful Use Info Meaningful Use Meaningful Use Diagnoses (Choose all that apply): None applicable Discharge Plan Admission Admit Date/Time: 03/30/25 17:23 Primary Reason for Your Visit: hyponatremia, TIA Attending Provider: Michell Esposito Primary Care Provider: Aracely Blanc Consulting Providers: Ford Horner; Valentino Camejo; Virginia Pettit; Lucy Carlos; Salome Rodríguez; Roddy Garcia; Michelle Lancaster; Pb Glaser; Dudley Roman; Barry Carter; Kourtney Duncan; Pooja Borjas; Erasto Campbell; Keke Baca; Serge Mcclelland; Ashwin Portillo Gregory; Harshal Barbosa; Prasad Barajas; Parish Pereyra; Debbie Joshua; Rona Lin; Kaleigh Holt Instructions Patient Instructions: Hyponatremia Ch Dc Discharge Orders/Prescriptions Prescriptions: New cefdinir 300 mg capsule 300 mg PO BID Qty: 10 0RF Continued aspirin 81 mg tablet,delayed release (DR/EC) 81 mg PO DAILY hydralazine 50 mg tablet 50 mg PO TID Qty: 270 1RF Osteo Bi-Flex Triple Strength 750 mg-644 mg- 30 mg-1 mg tablet 1 tab PO BID alprazolam [Xanax] 0.5 mg tablet 0.5 mg PO DAILY PRN (Reason: anxiety) Qty: 15 0RF cholecalciferol (vitamin D3) 25 mcg (1,000 unit) capsule 25 mcg PO DAILY acetaminophen 500 mg Tablet 1,000 mg PO Q8H PRN (Reason: pain) levocetirizine 5 mg tablet 5 mg PO DAILY Qty: 90 1RF ezetimibe 10 mg tablet 10 mg PO DAILY Qty: 90 3RF carvedilol 25 mg tablet 25 mg PO BID Qty: 180 3RF Rx Instructions: must administer with a meal/food losartan 50 mg tablet 50 mg PO BID Qty: 180 1RF pantoprazole 40 mg tablet,delayed release (DR/EC) 40 mg PO DAILY Qty: 90 1RF potassium chloride 20 mEq tablet extended release 20 meq PO DAILY Qty: 90 1RF ticagrelor [Brilinta] 90 mg tablet 90 mg PO BID Qty: 180 3RF sodium chloride 1,000 mg tablet,soluble See Rx Instructions PO QAM Qty: 150 0RF Rx Instructions: orally every morning; buspirone 5 mg tablet 7.5 mg PO DAILY PRN (Reason: for anxiety) Qty: 135 1RF Discontinued gabapentin 100 mg capsule 100 mg PO QHS Qty: 30 0RF Referrals / Follow Up: Aracely Blanc MD [Primary Care Provider, Internal Medicine] - Within 1 Week Referral Note: Office closed for the day. Please call and schedule in the morning. Buster Chavez MD [Non-Staff -Ordering Privileges, Neurology] - Within 2 Weeks Referral Note: Office closed for the day. Please call and schedule in the morning. Disposition Disposition (needs filled in before D/C Order can be placed): Home, Self Care Charges/Coding Visit Charges Inpatient E&M: 51239 Disch Hosp >30min
== END 2025-04-02 18:07 | disposition home or self-care (01) | DRG 644 ==
LOC: ED 15:44 → PCU 17:28
PROVIDERS: Admitting Provider Internal Medicine; Emergency Provider Surgery; PCP Internal Medicine; Visit Provider Student in an Organized Health Care Education/Training Program
DX: E22.2 Syndrome of inappropriate secretion of antidiuretic hormone (principal); I50.32 Chronic diastolic (congestive) heart failure; I13.0 Hypertensive heart and chronic kidney disease with heart failure and stage 1 through stage 4 chronic kidney disease, or unspecified chronic kidney disease; N39.0 Urinary tract infection, site not specified; I16.0 Hypertensive urgency; G25.81 Restless legs syndrome; N18.9 Chronic kidney disease, unspecified; I25.10 Atherosclerotic heart disease of native coronary artery without angina pectoris; E78.5 Hyperlipidemia, unspecified; E87.6 Hypokalemia; K21.9 Gastro-esophageal reflux disease without esophagitis; F41.9 Anxiety disorder, unspecified; Z95.5 Presence of coronary angioplasty implant and graft; Z79.02 Long term (current) use of antithrombotics/antiplatelets; Z79.82 Long term (current) use of aspirin; Z79.899 Other long term (current) drug therapy; Z86.16 Personal history of COVID-19; Z86.73 Personal history of transient ischemic attack (TIA), and cerebral infarction without residual deficits
CPT/HCPCS: 36415; 70450; 70496; 70498; 70551; 71046; 80048; 80053; 80061; 80307; 81001; 82436; 82570; 83880; 83930; 83935; 84133; 84300; 84443; 84484; 84540; 85025; 93005; 93306; 94668; 97161; 97166; 99285; Q9967; A4216; J2405

== ENCOUNTER → 2025-04-09 | Outpatient (CLI) | payer MEDICARE, SELFPAY ==
[2021-06-28 09:37] VITALS: BMI 34.1
[2025-04-09 13:29] LABS: Mucous, Urine 0 SEEN /hpf (<or=2+); Red Blood Cells-Urine 0 SEEN /hpf (0-5); Squamous Epithelial Cells - UA 0 SEEN /hpf (5-10)
[2025-04-09 15:08] LABS: Hematocrit 34.2 % (37-47); Hemoglobin 11.4 g/dL (12.0-15.0); Immature Granulocytes Count 0.030 X10^3/uL (0.0-0.0); Mean Corp Hgb Conc 33.3 g/dL (32-36); Mean Corpuscular Volume 93.2 fL (81-99); Mean Platelet Vol. 9.6 fl (6.2-12.0); NRBC Flagged by Analyzer 0 % (0-5); Platelet Count 331 K/mm3 (150-450); RBC Distribution Width CV 13.2 % (11.6-14.6); RBC Distribution Width SD 45.1 fl (35.1-43.9); Red Blood Count 3.67 M/mm3 (4.2-5.4); White Blood Count 5.3 K/mm3 (4.4-11.0)
[2025-04-09 15:25] LABS: AST(SGOT) 20 U/L (<=31); Alanine Aminotransfer ALT/SGPT 11 U/L (<=34); Albumin, Serum 4.0 g/dL (3.4-4.8); Alkaline Phosphatase 84 U/L (35-104); Bilirubin, Direct 0.20 mg/dL (0.00-0.30); Cholesterol 177 mg/dL (<=200); Globulin 3.2 g/dL (2.2-4.2); Low Density Lipoprotein Calc. 95 mg/dL; Triglycerides 176 mg/dL; Very Low Density Lipoprotein 35 mg/dL (5-40); cholesterol:hdl ratio screen 3.78
[2025-04-09 15:39] LABS: AST(SGOT) 20 U/L (<=31); Alanine Aminotransfer ALT/SGPT 11 U/L (<=34); Albumin, Serum 4.1 g/dL (3.4-4.8); Alkaline Phosphatase 83 U/L (35-104); Anion Gap 10 (5-15); BUN 15 mg/dL (4-19); BUN/Creat Ratio 21.6 RATIO (10-20); Calcium,Total 8.8 mg/dL (7.6-11.0); Carbon Dioxide 22.5 mmol/L (21.0-32.0); Chloride 98 mmol/L (98-108); Globulin 2.9 g/dL (2.2-4.2); Glucose 150 mg/dL (70-99); Iron 99 ug/dL (50-170); Iron Binding Capacity,Total 320 ug/dL (250-450); Iron Binding Capacity,Unsat 221 ug/dL (228-428); Potassium 4.1 mmol/L (3.3-5.1)
[2025-04-09 15:46] LABS: Color, Urine Yellow (Yellow); Glucose, Dipstick Normal (Normal); Ketone-Dipstick Negative (Negative); Leukocyte Esterase-Dipstick Negative /ul (Negative); Nitrite-Dipstick Negative (Negative); Occult Blood-Urine Negative /ul (Negative); Protein-Dipstick 15 mg/dl (Negative); Specific Gravity, Urine 1.010 (1.002-1.030); Urine Bilirubin Dipstick Negative (Negative)
[2025-04-09 16:08] LABS: Ferritin 136 ng/mL (22-378); Vitamin B12 2194 pg/mL (180-914); Vitamin D,25 Hydroxy 38.6 ng/mL (30-100)
== END | disposition home or self-care (01) ==
LOC: MTLAB 13:21
PROVIDERS: Physician Assistant Medical; PCP Internal Medicine; Referring Provider Internal Medicine; Visit Provider Internal Medicine
DX: N39.0 Urinary tract infection, site not specified (principal); D64.9 Anemia, unspecified; E55.9 Vitamin D deficiency, unspecified; E78.00 Pure hypercholesterolemia, unspecified
CPT/HCPCS: 36415; 80053; 80061; 80076; 81001; 82306; 82607; 82728; 83540; 83550; 85025; 87086